=== PATIENT | male | born 1940 | race Hispanic/Latino ===

== ENCOUNTER 2017-07-26 08:39 | Day surgery (SDC) | payer MEDICARE ==
[2017-07-26 09:35] VITALS: BMI 24.3
[2017-07-26 09:40] VITALS: RESP 18
[2017-07-26] MEDS ORDERED: Rocuronium 10 mg/ml (5 ml) ONE (09:45)
[2017-07-26] MEDS ORDERED: cefTRIAXone (Rocephin) 1 gm Inj ONE (10:28)
[2017-07-26] MEDS ORDERED: Propofol 10 mg/ml Inj (20 ML) ONE (10:53)
[2017-07-26] MEDS ORDERED: Midazolam 2 MG/2 ML VIAL ONE (10:53)
[2017-07-26] MEDS ORDERED: ePHEDrine 50 mg/ml Inj ONE (10:53)
[2017-07-26] MEDS ORDERED: Lidocaine 4% (Laryng-O-Jet) Kit MM ONE (10:54)
[2017-07-26] MEDS ORDERED: Etomidate 20 mg/10ml Inj IV ONE (10:54)
[2017-07-26] MEDS ORDERED: Succinylcholine 200 mg/10 ml Inj IV ONE (10:54)
[2017-07-26] MEDS ORDERED: Lactated Ringer's 1,000 ML IV ONE (11:50)
[2017-07-26] MEDS ORDERED: cefTRIAXone (Rocephin) 1 gm Inj IVPB ONE (11:55)
[2017-07-26] MEDS ORDERED: SODIUM CHLORIDE 3,000 ML IR ONE ×2 (12:30→13:45)
[2017-07-26] MEDS ORDERED: HYDROmorphone 0.5 mg/0.5 ml ISec IVP PRN (12:30)
[2017-07-26 16:21] VITALS: BP 123/84; PULSE 87; TEMP 97.9; O2SAT 98
--- NOTE | 2017-07-26 23:13 | OP ---
PROCEDURE DATE: 07/26/2017 PREOPERATIVE DIAGNOSIS: Gross hematuria with bladder tumor. POSTOPERATIVE DIAGNOSIS: Gross hematuria with bladder tumor. PROCEDURE: Cystoscopy with transurethral resection of bladder tumor. DESCRIPTION OF PROCEDURE: The patient was placed in the operating room table in the dorsal lithotomy position. After being given general anesthesia, the area of the groin was draped and prepped in the sterile manner. Using a #24 resectoscope, I entered into the bladder atraumatically. There was a large bladder tumor noted at the right base of the bladder absolutely close proximity to the right ureteral orifice. At this time, I resected the tumor. It was quite large in size and cauterized the active bleeding along the edges and in the central part. A way of comment, he has mildly enlarged middle lobe of the prostate, otherwise no other findings other than severe trabeculation was noted throughout the bladder. Once the resection was done, then #20 three-way Veliz catheter was inserted. The initial outflow was clear. Estimated blood loss to be less than 20 mL. Patient was taken from the operating room in good condition. Murray Dewey MD
== END 2017-07-26 17:00 | disposition home or self-care (01) ==
LOC: H.OPSURG 08:39
PROVIDERS: ATTEND Urology
DX: R31.0 Gross hematuria (principal); N40.0 Benign prostatic hyperplasia without lower urinary tract symptoms; D49.4 Neoplasm of unspecified behavior of bladder
CPT/HCPCS: 52234; 82948; 88305; J0330; J0696; J2001; J2250; J2704; J3010; J7120

== ENCOUNTER 2017-11-17 09:31 | Inpatient (IN) | payer MEDICARE ==
[2017-11-17 09:36] VITALS: BMI 23.8
[2017-11-17 10:53] LABS: BASO # 0.1 K/uL (0.0-0.2); BASO % 0.5 % (0.0-2.0); EOS # 0.2 K/uL (0.0-0.7); EOS % 1.5 % (0.0-4.0); HEMOGLOBIN 11.7 g/dL (12.0-18.0); LYMPH # 1.2 K/uL (1.0-4.3); LYMPH % 9.8 % (20.0-40.0); MEAN CELL VOLUME 88.9 fl (80.0-94.0); MEAN CORPUSCULAR HEMOGLOBIN 29.5 pg (27.0-31.0); MEAN CORPUSCULAR HGB CONC 33.2 g/dL (33.0-37.0); MEAN PLATELET VOLUME 7.1 fl (7.2-11.7); MONO # 0.9 K/uL (0.0-0.8); MONO % 7.8 % (0.0-10.0); NEUT # 9.6 K/uL (1.8-7.0); NEUT % 80.4 % (50.0-75.0); PLATELET COUNT 361 K/uL (130-400); RBC 3.97 Mil/uL (4.40-5.90); RED CELL DISTRIBUTION WIDTH 14.2 % (11.5-14.5); WHITE BLOOD COUNT 11.9 K/uL (4.8-10.8)
--- NOTE | 2017-11-17 10:56 | ED PDOC ---
HPI: Abdomen Time Seen by Provider: 11/17/17 10:02 Chief Complaint (Nursing): Abdominal Pain Chief Complaint (Provider): Abdominal Pain History Per: Patient History/Exam Limitations: no limitations Onset/Duration Of Symptoms: Days (x 4) Current Symptoms Are (Timing): Still Present Additional Complaint(s): Wili is a 77 y/o male with a history of diabetes who presents to the ED complaining of intermittent lower abdominal pain for the past 4 days with associated left lower back pain. Patient has been taking tylenol for the pain. He denies vomiting, fever, or dysuria, but reports that he does have constipation and has not had a bowel movement for the past 4 days. PMD: [place] Past Medical History Reviewed: Historical Data, Nursing Documentation, Vital Signs Vital Signs: Last Vital Signs Temp 98.4 F 11/18/17 07:29 Pulse 80 11/18/17 07:29 Resp 18 11/18/17 07:29 BP 126/63 11/18/17 07:29 Pulse Ox 97 11/18/17 07:29 - Medical History PMH: Diabetes Denies: Chronic Kidney Disease Other PMH: Bladder CA - Surgical History Surgical History: Hernia Repair - Family History Family History: States: Unknown Family Hx - Home Medications Home Medications: Ambulatory Orders Medication Instructions Recorded metFORMIN [glucOPHAGE] 500 mg PO BID 07/26/17 Furosemide [Lasix] 20 mg PO DAILY 11/17/17 Tamsulosin [Flomax] 0.4 mg PO HS 11/17/17 - Allergies Allergies/Adverse Reactions: Allergies Allergy/AdvReac Type Severity Reaction Status Date / Time aspirin Allergy DIZZINESS Verified 11/18/17 06:50 Review of Systems ROS Statement: Except As Marked, All Systems Reviewed And Found Negative Constitutional: Negative for: Fever Gastrointestinal: Positive for: Abdominal Pain (lower), Constipation. Negative for: Vomiting Genitourinary Male: Negative for: Dysuria Musculoskeletal: Positive for: Back Pain (left lower), Other (lower leg swelling ) Physical Exam - Reviewed Nursing Documentation Reviewed: Yes Vital Signs Reviewed: Yes - Physical Exam Appears: Positive for: Well, Non-toxic, No Acute Distress Skin: Positive for: Normal Color, Warm, Dry. Negative for: Rash Eye Exam: Positive for: Normal appearance Cardiovascular/Chest: Positive for: Regular Rate, Rhythm. Negative for: Murmur Respiratory: Positive for: Normal Breath Sounds. Negative for: Respiratory Distress Gastrointestinal/Abdominal: Positive for: Soft, Distended. Negative for: Tenderness, Hernia Back: Positive for: Normal Inspection. Negative for: L CVA Tenderness, R CVA Tenderness, Vertebral Tenderness Extremity: Positive for: Normal ROM, Swelling (mild pitting edema in both lower legs). Negative for: Tenderness, Deformity, Other (redness, wounds) Neurologic/Psych: Positive for: Alert, Oriented. Negative for: Motor/Sensory Deficits - Laboratory Results Result Diagrams: 11/18/17 04:35 11/18/17 04:35 - ECG O2 Sat by Pulse Oximetry: 96 (RA) Pulse Ox Interpretation: Normal Medical Decision Making Medical Decision Making: Time: 10:22 Initial Impression: Abdominal Pain, Constipation; Differentials include small bowel obstruction, cancer. Other differentials considered but not listed Initial Plan: --CT Abdomen & Pelvis w/ IV Contrast --EKG --CMP --Lipase --CBC Time: 13:54 CT ABDOMEN & PELVIS FINDINGS: LOWER THORAX: COPD. An ulcerated mass is identified the right lower lobe with peripheral spiculation suspicious for neoplasm, measuring 2.4 x 1.9 cm. Small hiatal hernia is identified. LIVER: Unremarkable. No gross lesion or ductal dilatation. GALLBLADDER AND BILE DUCTS: Unremarkable. PANCREAS: Unremarkable. No gross lesion or ductal dilatation. SPLEEN: Unremarkable. ADRENALS: Unremarkable. No mass. KIDNEYS AND URETERS: Mild right and moderate left hydronephrosis appreciate with prominent left perinephric reaction. Urinary bladder is markedly thickened diffusely with cystitis or neoplasm in question. Further, there is gross enlargement of prostate gland which measures 7.1 x 7.1 cm with central calcifications noted. No definite radiodense urolithiasis identified in either ureter and urinary bladder is felt to the likely etiology of hydronephrosis or prostate gland invading the urinary bladder. Vascular calcifications seen at the bilateral renal hilar regions without radiodense urolithiasis affecting either kidney apparently. VASCULATURE: Unremarkable. No aortic aneurysm. BOWEL: Unremarkable. No obstruction. No gross mural thickening. APPENDIX: Unremarkable. Normal appendix. PERITONEUM: Unremarkable. No free fluid. No free air. LYMPH NODES: Mildly prominent retroperitoneal and pelvic side wall lymphadenopathy clinical multiple lymph nodes or aggregates 2.2 x 4.3 cm. BLADDER: See renal section above. REPRODUCTIVE: See renal section above. BONES: No acute fracture. OTHER FINDINGS: None. IMPRESSION: Moderate left and mild to moderate right obstructive uropathy is appreciated likely on the basis of cystitis or neoplasm in the urinary bladder with the urinary bladder wall diffusely thickened. Prostate is grossly enlarged and invasion through the base of the urinary bladder is not excluded. Please see discussion above. Moderate retroperitoneal and pelvic side wall lymphadenopathy. Incidental COPD and right lower lobe pulmonary mass 2.4 cm. Time: 14:00 --Based on CT results, patient will be admitted for acute renal failure, UTI, and obstructed uropathy. He will be admitted to Dr. Clayton and will consult with Dr. Dewey, urologist television engineering teacher. Time: 15:00 --Case reviewed with Zuleima who recommends admitting patient, not doing a Veliz catheter, and ordering nucular scan. --Discussed with Dr. Clayton and will admit to med surg inpatient for renal failure and UTI. Scribe Attestation: Documented by Adebayo Pruett, acting as a scribe for Dr. Sarah Alexander MD. Provider Scribe Attestation: All medical record entries made by the Scribe were at my direction and personally dictated by me. I have reviewed the chart and agree that the record accurately reflects my personal performance of the history, physical exam, medical decision making, and the department course for this patient. I have also personally directed, reviewed, and agree with the discharge instructions and disposition. Disposition - Clinical Impression Clinical Impression: Obstructive uropathy, UTI (urinary tract infection), Bladder cancer - Patient ED Disposition Is Patient to be Admitted: Yes Discussed With DrAkua: Ha Clayton Doctor Will See Patient In The: Hospital Counseled Patient/Family Regarding: Studies Performed, Diagnosis - Disposition Disposition Time: 14:00 Condition: FAIR - Pt Status Changed To: Hospital Disposition Of: Inpatient - Admit Certification Admit to Inpatient:: After my assessment, the patient will require hospitalization for at least two midnights. This is because of the severity of symptoms shown, intensity of services needed, and/or the medical risk in this patient being treated as an outpatient. - POA Present On Arrival: None
[2017-11-17 11:10] LABS: CALCIUM 9.5 mg/dL (8.4-10.2)
--- NOTE | 2017-11-17 11:58 | CARD ---
APPROVED REPORT EKG Measurement Heart [id number] <Conclusion> Normal sinus rhythm Normal ECG
[2017-11-17 12:10] LABS: ANISOCYTOSIS SLIGHT; EOSINOPHIL 2 % (0-7); LYMPHOCYTE 14 % (20-50); MONOCYTE 7 % (0-10); NEUTROPHIL 77 % (42-75); PLATELET ESTIMATE NORMAL (NORMAL); TOTAL CELLS COUNTED 100
[2017-11-17 12:11] LABS: TOXIC GRANULATION PRESENT
[2017-11-17 12:22] LABS: HYPOCHROMIC SLIGHT
[2017-11-17 13:22] LABS: SQUAMOUS EPITHIAL < 1 /hpf (0-5); URINE BACTERIA MOD (<OCC); URINE BILIRUBIN NEGATIVE (NEGATIVE); URINE BLOOD SMALL (NEGATIVE); URINE CLARITY CLOUDY (Clear); URINE COLOR YELLOW (YELLOW); URINE GLUCOSE (UA) NEG (Normal); URINE LEUKOCYTE ESTERASE LARGE Leu/uL (Negative); URINE PROTEIN 100 mg/dL (NEGATIVE); URINE UROBILINOGEN 0.2-1.0 mg/dL (0.2-1.0); WBC CLUMPS FEW /hpf
--- NOTE | 2017-11-17 13:54 | CT ---
PROCEDURE: CT Abdomen and Pelvis without intravenous contrast HISTORY: abdominal pain constipation COMPARISON: None. TECHNIQUE: Helical CT of the abdomen and pelvis was performed without oral or intravenous contrast as per referring physician request.. Contrast Dose: None Radiation dose: Total exam DLP = 765.42 mGy-cm. This CT exam was performed using one or more of the following dose reduction techniques: Automated exposure control, adjustment of the mA and/or kV according to patient size, and/or use of iterative reconstruction technique. FINDINGS: LOWER THORAX: COPD. An ulcerated mass is identified the right lower lobe with peripheral spiculation suspicious for neoplasm, measuring 2.4 x 1.9 cm. Small hiatal hernia is identified. LIVER: Unremarkable. No gross lesion or ductal dilatation. GALLBLADDER AND BILE DUCTS: Unremarkable. PANCREAS: Unremarkable. No gross lesion or ductal dilatation. SPLEEN: Unremarkable. ADRENALS: Unremarkable. No mass. KIDNEYS AND URETERS: Mild right and moderate left hydronephrosis appreciate with prominent left perinephric reaction. Urinary bladder is markedly thickened diffusely with cystitis or neoplasm in question. Further, there is gross enlargement of prostate gland which measures 7.1 x 7.1 cm with central calcifications noted. No definite radiodense urolithiasis identified in either ureter and urinary bladder is felt to the likely etiology of hydronephrosis or prostate gland invading the urinary bladder. Vascular calcifications seen at the bilateral renal hilar regions without radiodense urolithiasis affecting either kidney apparently. VASCULATURE: Unremarkable. No aortic aneurysm. BOWEL: Unremarkable. No obstruction. No gross mural thickening. APPENDIX: Unremarkable. Normal appendix. PERITONEUM: Unremarkable. No free fluid. No free air. LYMPH NODES: Mildly prominent retroperitoneal and pelvic side wall lymphadenopathy clinical multiple lymph nodes or aggregates 2.2 x 4.3 cm. BLADDER: See renal section above. REPRODUCTIVE: See renal section above. BONES: No acute fracture. OTHER FINDINGS: None. IMPRESSION: Moderate left and mild to moderate right obstructive uropathy is appreciated likely on the basis of cystitis or neoplasm in the urinary bladder with the urinary bladder wall diffusely thickened. Prostate is grossly enlarged and invasion through the base of the urinary bladder is not excluded. Please see discussion above. Moderate retroperitoneal and pelvic side wall lymphadenopathy. Incidental COPD and right lower lobe pulmonary mass 2.4 cm.
[2017-11-17] MEDS ORDERED: Sodium Chloride 0.9% 1,000 ML IV STA ×2 (14:07→14:20)
[2017-11-17] MEDS ORDERED: cefTRIAXone (Rocephin) 1 gm Inj ONE (14:12)
[2017-11-17] MEDS ORDERED: Sodium Chloride 0.45% 1,000 ML IV SCH (17:15)
[2017-11-18] MEDS: Oxycodone/Acetaminophen 5/325 mg Tab PO PRN ×4 (02:23→21:20)
[2017-11-18 05:32] LABS: HEMOGLOBIN 10.1 g/dL (12.0-18.0); MEAN CELL VOLUME 89.1 fl (80.0-94.0); MEAN CORPUSCULAR HEMOGLOBIN 29.4 pg (27.0-31.0); RBC 3.43 Mil/uL (4.40-5.90); RED CELL DISTRIBUTION WIDTH 14.2 % (11.5-14.5); WHITE BLOOD COUNT 12.9 K/uL (4.8-10.8)
[2017-11-18 05:59] LABS: ALB/GLOB RATIO 0.9 (1.0-2.1); ALBUMIN 3.2 g/dL (3.5-5.0); CALCIUM 8.4 mg/dL (8.4-10.2)
--- NOTE | 2017-11-18 14:13 | NM ---
PROCEDURE: Renal scan, flow study in split renal function HISTORY: obstructive uropathy, ARF COMPARISON: November 17, 2017. CT abdomen and pelvis TECHNIQUE: 11.03 mCi technetium 99 M Mag 3 FINDINGS: Right Kidney: Flow component: Diminished perfusion to the right kidney. Time to peak: 3.16 minutes Peak to T1/2 Peak: Not applicable Left Kidney: Flow component: Normal perfusion left kidney Time to peak: 30.16 minutes Peak to T1/2 Peak: Not applicable Obstruction profile apparent left kidney. Split Renal Function: Right kidney 18.8 % Left kidney 81.2 % IMPRESSION: Poorly perfused, poorly functioning right kidney. Normal perfusion to the left kidney, obstruction profile apparent with failure to clear radionuclide from the left kidney.
--- NOTE | 2017-11-18 14:34 | HP ---
HISTORY OF PRESENT ILLNESS: Mr. Genao is a 77-year-old male who was admitted to the medical floor after he went through the Emergency Room complaining of intermittent lower abdominal pain for the past 4 days, associated with lower back pain. He also indicates that he has severe constipation for the past several days and has had problems passing urine. PAST MEDICAL HISTORY: Remarkable for diabetes mellitus and chronic kidney disease. He sees Dr. Dewey for urologic problems. FAMILY HISTORY: Non-revealing. SOCIAL HISTORY: He does not smoke or drink. REVIEW OF SYSTEMS: Essentially unremarkable. PHYSICAL EXAMINATION: GENERAL: The patient is alert and oriented, appears to be in moderate distress because of lower back pain and problems related to difficulty with voiding and passing stool. VITAL SIGNS: Reviewed and stable. HEENT: Mouth shows fair hygiene. LUNGS: Clear. HEART: Regular. No murmurs or gallop. ABDOMEN: Soft and nontender. No organomegaly appreciated. EXTREMITIES: Shows no edema or cyanosis. CENTRAL NERVOUS SYSTEM: Grossly intact. LABORATORY DATA: CT scan of abdomen and pelvis, moderate right obstructive uropathy is noted. Prostate is grossly enlarged. WBC 12.9, hemoglobin 10.1, and platelet count 310,000. Sodium 141, potassium 4.9, BUN 47, creatinine 5.3, and serum glucose 111. IMPRESSION: Obstructive uropathy with prostate enlargement, acute cystitis, and constipation, probably secondary to obstructive uropathy and colon. PLAN: Urology evaluation, intravenous antibiotic therapy. Renal scan already ordered given that the patient has an elevated BUN and creatinine, which probably obstructive uropathy. Give IV hydration and continued therapy as ordered. We will continue to follow. Further therapy as per Urology. Ha Clayton MD
[2017-11-19] MEDS: Oxycodone/Acetaminophen 5/325 mg Tab PO PRN (01:20)
[2017-11-19 07:36] LABS: CALCIUM 8.8 mg/dL (8.4-10.2)
[2017-11-19 07:52] LABS: INR 1.3 (0.9-1.2); PROTHROMBIN TIME 14.3 Seconds (9.8-13.1)
[2017-11-19] MEDS ORDERED: Dextrose 5%/0.45% NS 1,000 ML IV SCH (11:00)
[2017-11-19] MEDS: Dextrose 5%/0.45% NS 1,000 ML IV SCH (11:45)
[2017-11-19] MEDS ORDERED: Lidocaine 1% Inj (20ml) ONE (13:17)
[2017-11-19] MEDS ORDERED: Etomidate 20 mg/10ml Inj IV ONE (13:39)
[2017-11-19] MEDS ORDERED: Midazolam 2 MG/2 ML VIAL ONE ×2 (13:39→14:05)
[2017-11-19] MEDS ORDERED: Iodixanol 320 MG/ML 100 ML BOTTLE IV ONE (13:42)
--- NOTE | 2017-11-19 13:49 | CP.PCM.PN ---
Subjective - Date & Time of Evaluation Date of Evaluation: 11/19/17 Time of Evaluation: 13:49 - Subjective Subjective: STILL IN PAIN FOR NEPHROSTOMY TUBE PLACEMENT UNDER IR TODAY MEDICALLY CLEARED FOR SURGERY CONTINUE PRESENT ANTIBIOTIC RX Objective - Vital Signs/Intake and Output Vital Signs (last 24 hours): Temp Pulse Resp BP Pulse Ox 98.9 F 96 H 18 137/66 97 11/19/17 07:33 11/19/17 07:33 11/19/17 07:33 11/19/17 07:33 11/19/17 07:33 - Medications Medications: Current Medications Acetaminophen (Tylenol 325mg Tab) 650 mg PO Q4 PRN PRN Reason: Fever >100.4 F Last Admin: 11/18/17 00:42 Dose: 650 mg Glipizide (Glucotrol) 10 mg PO BID [facility] Last Admin: 11/19/17 08:54 Dose: Not Given Ceftriaxone Sodium 1 gm/ (Sodium Chloride) 100 mls @ 100 mls/hr IVPB DAILY [facility] PRN Reason: Protocol Last Admin: 11/19/17 08:45 Dose: 100 mls/hr Dextrose/Sodium Chloride (Dextrose 5%/0.45% Ns 1000 Ml) 1,000 mls @ 60 mls/hr IV .[id number] [facility] Stop: 11/20/17 10:58 Lactulose (Enulose) 20 gm PO ONCE [facility] Last Admin: 11/18/17 17:48 Dose: 20 gm Oxycodone/Acetaminophen (Percocet 5/325 Mg Tab) 1 tab PO Q4 PRN PRN Reason: Pain, severe (8-10) Stop: 11/20/17 17:04 Last Admin: 11/19/17 01:20 Dose: 1 tab Tamsulosin HCl (Flomax) 0.4 mg PO HS MIKE Last Admin: 11/18/17 21:17 Dose: 0.4 mg - Labs Labs: 11/18/17 04:35 11/19/17 06:40 PT 14.3 Seconds (9.8-13.1) H 11/19/17 06:40 INR 1.3 (0.9-1.2) H 11/19/17 06:40
[2017-11-19] MEDS ORDERED: Propofol 10 mg/ml Inj (20 ML) ONE (14:08)
[2017-11-19] MEDS ORDERED: Labetalol 5mg/ml (4ml) ONE (14:21)
--- NOTE | 2017-11-19 14:39 | PCM.SURG1 ---
Surgeon's Initial Post Op Note - Surgeon's Notes Surgeon: Alexsander Flaherty MD [employer] Supervisor: None Type of Anesthesia: MAC Pre-Operative Diagnosis: bilateral obstructive uropathy Operative Findings: moderate bilateral hydronephrosis Post-Operative Diagnosis: same Operation Performed: Bilateral percutaneous nephrostomy insertion Specimen/Specimens Removed: 5 cc cloudy urine from each side Estimated Blood Loss: EBL {In ML}: 5 Date of Surgery/Procedure: 11/19/17 Time of Surgery/Procedure: 14:20
[2017-11-19] MEDS ORDERED: Sodium Chloride 0.9% 250 ML IV ONE (14:50)
--- NOTE | 2017-11-19 16:03 | CT ---
PROCEDURE: BILATERAL NEPHROSTOMY TUBE INSERTION CLINICAL HISTORY: 77-year-old male with bladder carcinoma and obstructive uropathy causing bilateral hydronephrosis is referred to Interventional Radiology for nephrostomy tube insertion. COMPARISON: CT scan of the abdomen and pelvis dated 11/17/2017 PROCEDURE: 1. Placement of percutaneous nephrostomy x2. PRE-PROCEDURE FINDINGS: 1. Moderate bilateral hydronephrosis. POST-PROCEDURE FINDINGS: 1. Successful placement of bilateral percutaneous nephrostomy tubes. INTERVENTIONAL RADIOLOGIST: Alexsander Flaherty M.D. (the attending was present for the entire procedure) ANESTHESIA: Provided by the attending anesthesiologist. Sedation was supervised by the anesthesiology attending with the presence of independent radiology nursing monitoring. Physiological data monitoring was performed throughout the entire procedure. The patient's blood pressure, EKG and pulse oximetry were recorded. The patient tolerated the procedure and sedation without untoward reactions. The intra-procedural sedation time was 30 minutes. MEDICATIONS: Lidocaine 1% for local subcutaneous analgesia. CONTRAST: 10 mL contrast. COMPLICATIONS: None. RADIATION DOSE: Fluoroscopy Time: 114.2 seconds Cumulative Dose: 33.0 mGy PROCEDURE DESCRIPTION AND FINDINGS: The risks, benefits, alternatives and possible complications of the procedure were fully discussed; all questions were answered and informed consent was obtained. The patient was brought into the interventional suite and a pre-procedure 'time-out' was performed. The patient was placed on the fluoroscopy table in the prone position. The bilateral flanks were prepped and draped in the usual sterile fashion. Maximum sterile barrier precautions were maintained throughout the entire procedure. Preliminary ultrasound images of the bilateral flanks demonstrated moderate hydronephrosis. Following subcutaneous infiltration of lidocaine 1% for local analgesia, under ultrasound guidance, a 21-gauge needle was inserted into a lower pole calyx of the left kidney. Following urine return, a sample was obtained and a 0.035 guidewire was advanced via the needle into the renal pelvis. The needle was exchanged over the guidewire for a new 8 Slovak nephrostomy tube. The pigtail was formed in the renal pelvis. Gentle contrast injection confirmed optimal position within the renal pelvis. The catheter was secured to the skin with a 2-0 non-absorbable suture and left to gravity bag drainage externally. A sterile dressing was applied. Following subcutaneous infiltration of lidocaine 1% for local analgesia, under ultrasound guidance, a 21-gauge needle was inserted into a lower pole calyx of the right kidney. Following urine return, a sample was obtained and a 0.035 guidewire was advanced via the needle into the renal pelvis. The needle was exchanged over the guidewire for a new 8 Slovak nephrostomy tube. The pigtail was formed in the renal pelvis. Gentle contrast injection confirmed optimal position within the renal pelvis. The catheter was secured to the skin with a 2-0 non-absorbable suture and left to gravity bag drainage externally. A sterile dressing was applied. The patient tolerated the procedure well without immediate post-procedure complications and was transferred back to the floor in stable condition. IMPRESSION: SUCCESSFUL PLACEMENT OF BILATERAL 8 [place] PERCUTANEOUS NEPHROSTOMY TUBES.
[2017-11-20] MEDS: Dextrose 5%/0.45% NS 1,000 ML IV SCH ×2 (04:18→09:44)
[2017-11-20] MEDS ORDERED: Magnesium Citrate Oral SOL (300 ml) PO ONE (09:22)
--- NOTE | 2017-11-20 09:29 | CP.PCM.PN ---
Subjective - Date & Time of Evaluation Date of Evaluation: 11/20/17 Time of Evaluation: 09:30 - Subjective Subjective: STILL C/O CONSTIPATION SUPRAPUBIC DISCOMFORT IMPROVED R NEPHROSTOMY TUBE FUNCTIONING BUT HAS BLOODY URINE L NEPHROSTOMY TUBE HAS CLEAR URINE Objective - Vital Signs/Intake and Output Vital Signs (last 24 hours): Temp Pulse Resp BP Pulse Ox 97.9 F 92 H 20 136/65 95 11/20/17 07:49 11/20/17 07:49 11/20/17 07:49 11/20/17 07:49 11/20/17 07:49 Intake and Output: 11/20/17 11/20/17 06:59 18:59 Intake Total 1200 Output Total 2020 Balance -820 - Medications Medications: Current Medications Acetaminophen (Tylenol 325mg Tab) 650 mg PO Q4 PRN PRN Reason: Fever >100.4 F Last Admin: 11/18/17 00:42 Dose: 650 mg Glipizide (Glucotrol) 10 mg PO BID [facility] Last Admin: 11/20/17 08:46 Dose: 10 mg Ceftriaxone Sodium 1 gm/ (Sodium Chloride) 100 mls @ 100 mls/hr IVPB DAILY [facility] PRN Reason: Protocol Last Admin: 11/20/17 08:46 Dose: 100 mls/hr Dextrose/Sodium Chloride (Dextrose 5%/0.45% Ns 1000 Ml) 1,000 mls @ 42 mls/hr IV .[id number] [facility] Stop: 11/21/17 09:24 Lactulose (Enulose) 20 gm PO ONCE [facility] Last Admin: 11/18/17 17:48 Dose: 20 gm Magnesium Citrate (Citrate Of Mag) 300 ml PO ONCE ONE Stop: 11/20/17 09:23 Oxycodone/Acetaminophen (Percocet 5/325 Mg Tab) 1 tab PO Q4 PRN PRN Reason: Pain, severe (8-10) Stop: 11/20/17 17:04 Last Admin: 11/19/17 01:20 Dose: 1 tab Tamsulosin HCl (Flomax) 0.4 mg PO [facility] Last Admin: 11/19/17 21:33 Dose: 0.4 mg - Labs Labs: 11/18/17 04:35 11/19/17 06:40 PT 14.3 Seconds (9.8-13.1) H 11/19/17 06:40 INR 1.3 (0.9-1.2) H 11/19/17 06:40 - Constitutional Appears: No Acute Distress - Head Exam Head Exam: ATRAUMATIC, NORMAL INSPECTION, NORMOCEPHALIC - Eye Exam Eye Exam: EOMI, Normal appearance, PERRL Pupil Exam: NORMAL ACCOMODATION, PERRL - ENT Exam ENT Exam: Mucous Membranes Moist, Normal Exam - Neck Exam Neck Exam: Full ROM, Normal Inspection. absent: Lymphadenopathy - Respiratory Exam Respiratory Exam: Clear to Ausculation Bilateral, NORMAL BREATHING PATTERN - Cardiovascular Exam Cardiovascular Exam: REGULAR RHYTHM, +S1, +S2. absent: Murmur - GI/Abdominal Exam GI & Abdominal Exam: Soft, Normal Bowel Sounds. absent: Tenderness - Rectal Exam Rectal Exam: NORMAL INSPECTION - Extremities Exam Extremities Exam: Full ROM, Normal Capillary Refill, Normal Inspection. absent : Joint Swelling, Pedal Edema - Back Exam Back Exam: NORMAL INSPECTION - Neurological Exam Neurological Exam: Alert, Awake, CN II-XII Intact, Normal Gait, Oriented x3 - Psychiatric Exam Psychiatric exam: Normal Affect, Normal Mood - Skin Skin Exam: Dry, Intact, Normal Color, Warm Assessment and Plan - Assessment and Plan (Free Text) Assessment: OBSTRUCTIVE UROPATHY RENAL FAILURE DUE TO OBSTRUCTIVE UROPATHY HX OF BLADDER CANCER CONSTIPATION S/P BILATERAL NEPHROSTOMIES Plan: CONTINUE RX ORDERED [place] FOR CONSTIPATION MAY NEED FLEETS [facility] REPEAT LABS MAY NEED NEPHROLOGY EVAL
[2017-11-20] MEDS: Oxycodone/Acetaminophen 5/325 mg Tab PO PRN (23:03)
[2017-11-21 08:44] LABS: CALCIUM 8.9 mg/dL (8.4-10.2)
[2017-11-21] MEDS: Dextrose 5%/0.45% NS 1,000 ML IV SCH (09:28)
--- NOTE | 2017-11-21 12:01 | CP.PCM.PN ---
Subjective - Date & Time of Evaluation Date of Evaluation: 11/21/17 Time of Evaluation: 12:02 - Subjective Subjective: CLINICALLY IMPROVING PAIN LESS HEMATURIA R RENAL CATH PERSISTS L CATH CLEAR URINE Objective - Vital Signs/Intake and Output Vital Signs (last 24 hours): Temp Pulse Resp BP Pulse Ox 98.3 F 86 18 137/69 97 11/21/17 07:41 11/21/17 07:41 11/21/17 07:41 11/21/17 07:41 11/21/17 07:41 Intake and Output: 11/21/17 11/21/17 06:59 18:59 Intake Total 604 Output Total 1400 Balance -796 - Medications Medications: Current Medications Acetaminophen (Tylenol 325mg Tab) 650 mg PO Q4 PRN PRN Reason: Fever >100.4 F Last Admin: 11/18/17 00:42 Dose: 650 mg Glipizide (Glucotrol) 10 mg PO BID [facility] Last Admin: 11/21/17 09:29 Dose: Not Given Ceftriaxone Sodium 1 gm/ (Sodium Chloride) 100 mls @ 100 mls/hr IVPB DAILY [facility] PRN Reason: Protocol Last Admin: 11/21/17 09:27 Dose: 100 mls/hr Lactulose (Enulose) 20 gm PO ONCE [facility] Last Admin: 11/18/17 17:48 Dose: 20 gm Oxycodone/Acetaminophen (Percocet 5/325 Mg Tab) 1 tab PO Q6 PRN PRN Reason: Pain, severe (8-10) Stop: 11/23/17 22:42 Last Admin: 11/20/17 23:03 Dose: 1 tab Tamsulosin HCl (Flomax) 0.4 mg PO HS [facility] Last Admin: 11/20/17 21:53 Dose: 0.4 mg - Labs Labs: 11/18/17 04:35 11/21/17 06:30 PT 14.3 Seconds (9.8-13.1) H 11/19/17 06:40 INR 1.3 (0.9-1.2) H 11/19/17 06:40 - Constitutional Appears: No Acute Distress - Head Exam Head Exam: ATRAUMATIC, NORMAL INSPECTION, NORMOCEPHALIC - Eye Exam Eye Exam: EOMI, Normal appearance, PERRL Pupil Exam: NORMAL ACCOMODATION, PERRL - ENT Exam ENT Exam: Mucous Membranes Moist, Normal Exam - Neck Exam Neck Exam: Full ROM, Normal Inspection. absent: Lymphadenopathy - Respiratory Exam Respiratory Exam: Clear to Ausculation Bilateral, NORMAL BREATHING PATTERN - Cardiovascular Exam Cardiovascular Exam: REGULAR RHYTHM, +S1, +S2. absent: Murmur - GI/Abdominal Exam GI & Abdominal Exam: Soft, Normal Bowel Sounds. absent: Tenderness - Rectal Exam Rectal Exam: NORMAL INSPECTION - Extremities Exam Extremities Exam: Full ROM, Normal Capillary Refill, Normal Inspection. absent : Joint Swelling, Pedal Edema - Back Exam Back Exam: NORMAL INSPECTION - Neurological Exam Neurological Exam: Alert, Awake, CN II-XII Intact, Normal Gait, Oriented x3 - Psychiatric Exam Psychiatric exam: Normal Affect, Normal Mood - Skin Skin Exam: Dry, Intact, Normal Color, Warm Assessment and Plan - Assessment and Plan (Free Text) Assessment: OBSTRUCTIVE UROPATHY-IMPROVING HX OF BLADDER CANCER Plan: CONTINUE CURRENT RX PER UROLOGIST
[2017-11-21] MEDS: Oxycodone/Acetaminophen 5/325 mg Tab PO PRN ×2 (18:09→23:37)
[2017-11-22] MEDS: Oxycodone/Acetaminophen 5/325 mg Tab PO PRN ×2 (06:24→17:52)
[2017-11-22 06:33] LABS: BASO # 0.1 K/uL (0.0-0.2); BASO % 1.2 % (0.0-2.0); EOS # 0.5 K/uL (0.0-0.7); EOS % 7.1 % (0.0-4.0); HEMOGLOBIN 11.5 g/dL (12.0-18.0); LYMPH # 1.2 K/uL (1.0-4.3); LYMPH % 15.8 % (20.0-40.0); MEAN CELL VOLUME 89.4 fl (80.0-94.0); MEAN CORPUSCULAR HEMOGLOBIN 29.9 pg (27.0-31.0); MEAN CORPUSCULAR HGB CONC 33.5 g/dL (33.0-37.0); MEAN PLATELET VOLUME 6.6 fl (7.2-11.7); MONO # 0.6 K/uL (0.0-0.8); MONO % 7.9 % (0.0-10.0); NEUT # 5.1 K/uL (1.8-7.0); RBC 3.86 Mil/uL (4.40-5.90); WHITE BLOOD COUNT 7.5 K/uL (4.8-10.8)
[2017-11-22 06:48] LABS: CALCIUM 9.4 mg/dL (8.4-10.2)
--- NOTE | 2017-11-22 08:46 | CP.PCM.PN ---
Subjective - Date & Time of Evaluation Date of Evaluation: 11/22/17 Time of Evaluation: 08:47 - Subjective Subjective: still constipated good urine flow from nephrostomy caths r sided catheter--nblood tinged but improving Objective - Vital Signs/Intake and Output Vital Signs (last 24 hours): Temp Pulse Resp BP Pulse Ox 98.2 F 79 20 136/74 96 11/22/17 07:48 11/22/17 07:48 11/22/17 07:48 11/22/17 07:48 11/22/17 07:48 Intake and Output: 11/22/17 11/22/17 06:59 18:59 Intake Total 400 Output Total 790 Balance -390 - Medications Medications: Current Medications Acetaminophen (Tylenol 325mg Tab) 650 mg PO Q4 PRN PRN Reason: Fever >100.4 F Last Admin: 11/18/17 00:42 Dose: 650 mg Glipizide (Glucotrol) 10 mg PO BID [facility] Last Admin: 11/21/17 18:23 Dose: 10 mg Ceftriaxone Sodium 1 gm/ (Sodium Chloride) 100 mls @ 100 mls/hr IVPB DAILY [facility] PRN Reason: Protocol Last Admin: 11/21/17 09:27 Dose: 100 mls/hr Lactulose (Enulose) 20 gm PO ONCE [facility] Last Admin: 11/18/17 17:48 Dose: 20 gm Oxycodone/Acetaminophen (Percocet 5/325 Mg Tab) 1 tab PO Q6 PRN PRN Reason: Pain, severe (8-10) Stop: 11/23/17 22:42 Last Admin: 11/22/17 06:24 Dose: 1 tab Tamsulosin HCl (Flomax) 0.4 mg PO HS [facility] Last Admin: 11/21/17 21:13 Dose: 0.4 mg - Labs Labs: 11/22/17 06:00 11/22/17 06:00 PT 14.3 Seconds (9.8-13.1) H 11/19/17 06:40 INR 1.3 (0.9-1.2) H 11/19/17 06:40 - Constitutional Appears: No Acute Distress - Head Exam Head Exam: ATRAUMATIC, NORMAL INSPECTION, NORMOCEPHALIC - Eye Exam Eye Exam: EOMI, Normal appearance, PERRL Pupil Exam: NORMAL ACCOMODATION, PERRL - ENT Exam ENT Exam: Mucous Membranes Moist, Normal Exam - Neck Exam Neck Exam: Full ROM, Normal Inspection. absent: Lymphadenopathy - Respiratory Exam Respiratory Exam: Clear to Ausculation Bilateral, NORMAL BREATHING PATTERN - Cardiovascular Exam Cardiovascular Exam: REGULAR RHYTHM, +S1, +S2. absent: Murmur - GI/Abdominal Exam GI & Abdominal Exam: Soft, Normal Bowel Sounds. absent: Tenderness - Rectal Exam Rectal Exam: NORMAL INSPECTION - Exam Speculum exam: NORMAL SPECULUM EXAM - Extremities Exam Extremities Exam: Full ROM, Normal Capillary Refill, Normal Inspection. absent : Joint Swelling, Pedal Edema - Back Exam Back Exam: NORMAL INSPECTION - Neurological Exam Neurological Exam: Alert, Awake, CN II-XII Intact, Normal Gait, Oriented x3 - Psychiatric Exam Psychiatric exam: Normal Affect, Normal Mood - Skin Skin Exam: Dry, Intact, Normal Color, Warm Assessment and Plan - Assessment and Plan (Free Text) Assessment: obstructive uropathy improving acute kidney failure-improved hx of bladder cancer Plan: continue rx as per urologist marques for constipation
--- NOTE | 2017-11-22 09:29 | CP.PCM.PN ---
Subjective - Date & Time of Evaluation Date of Evaluation: 11/22/17 Time of Evaluation: 09:24 - Subjective Subjective: UROLOGY tphas improved alot with bilateral percutaneous tubes. At this time it is advisable that . he stablizes medically and in about two weeks perforrn cysto to assess bladder statusFrom urology point of view he can be discharged home today Objective - Vital Signs/Intake and Output Vital Signs (last 24 hours): Temp Pulse Resp BP Pulse Ox 98.2 F 79 20 136/74 96 11/22/17 07:48 11/22/17 07:48 11/22/17 07:48 11/22/17 07:48 11/22/17 07:48 Intake and Output: 11/22/17 11/22/17 06:59 18:59 Intake Total 400 Output Total 790 Balance -390 - Medications Medications: Current Medications Acetaminophen (Tylenol 325mg Tab) 650 mg PO Q4 PRN PRN Reason: Fever >100.4 F Last Admin: 11/18/17 00:42 Dose: 650 mg Glipizide (Glucotrol) 10 mg PO BID [facility] Last Admin: 11/22/17 08:52 Dose: 10 mg Ceftriaxone Sodium 1 gm/ (Sodium Chloride) 100 mls @ 100 mls/hr IVPB DAILY [facility] PRN Reason: Protocol Last Admin: 11/22/17 08:51 Dose: 100 mls/hr Lactulose (Enulose) 20 gm PO ONCE [facility] Last Admin: 11/18/17 17:48 Dose: 20 gm Magnesium Citrate (Citrate Of Mag) 300 ml PO ONCE ONE Stop: 11/22/17 09:31 Oxycodone/Acetaminophen (Percocet 5/325 Mg Tab) 1 tab PO Q6 PRN PRN Reason: Pain, severe (8-10) Stop: 11/23/17 22:42 Last Admin: 11/22/17 06:24 Dose: 1 tab Tamsulosin HCl (Flomax) 0.4 mg PO HS [facility] Last Admin: 11/21/17 21:13 Dose: 0.4 mg - Labs Labs: 11/22/17 06:00 11/22/17 06:00 PT 14.3 Seconds (9.8-13.1) H 11/19/17 06:40 INR 1.3 (0.9-1.2) H 11/19/17 06:40
[2017-11-22] MEDS ORDERED: Magnesium Citrate Oral SOL (300 ml) PO ONE (09:30)
--- NOTE | 2017-11-22 12:17 | CP.PCM.PCO ---
Assessment & Plan - Assessment and Plan (Free Text) Assessment: pt. cleared for discharge to Home today by and pt. to f/u with next Wednesday for follow up cont. to monitor nephrostomy- home with vns spoke with son Wili who will be here this afternoon to take his dad home Above plan of care discussed with son patient homebound 2nd to Nephrostomy tube-needs f/u with vnx
[2017-11-22 23:52] VITALS: RESP 20
[2017-11-23] MEDS: Oxycodone/Acetaminophen 5/325 mg Tab PO PRN ×2 (00:56→06:34)
--- NOTE | 2017-11-23 08:54 | CP.PCM.PN ---
Subjective - Date & Time of Evaluation Date of Evaluation: 11/23/17 Time of Evaluation: 08:58 - Subjective Subjective: discharge was cancelled yesterday because pt c/o feeling very weak and unable to go home he also c/o suprapubic pain and bloody urine Objective - Vital Signs/Intake and Output Vital Signs (last 24 hours): Temp Pulse Resp BP Pulse Ox 98.4 F 80 20 143/66 95 11/23/17 08:05 11/23/17 08:05 11/23/17 08:05 11/23/17 08:05 11/23/17 08:05 Intake and Output: 11/23/17 11/23/17 06:59 18:59 Output Total 475 Balance -475 - Medications Medications: Current Medications Acetaminophen (Tylenol 325mg Tab) 650 mg PO Q4 PRN PRN Reason: Fever >100.4 F Last Admin: 11/18/17 00:42 Dose: 650 mg Glipizide (Glucotrol) 10 mg PO BID [facility] Last Admin: 11/22/17 17:52 Dose: 10 mg Ceftriaxone Sodium 1 gm/ (Sodium Chloride) 100 mls @ 100 mls/hr IVPB DAILY [facility] PRN Reason: Protocol Last Admin: 11/23/17 08:45 Dose: 100 mls/hr Lactulose (Enulose) 20 gm PO ONCE [facility] Last Admin: 11/18/17 17:48 Dose: 20 gm Oxycodone/Acetaminophen (Percocet 5/325 Mg Tab) 1 tab PO Q6 PRN PRN Reason: Pain, severe (8-10) Stop: 11/23/17 22:42 Last Admin: 11/23/17 06:34 Dose: 1 tab Tamsulosin HCl (Flomax) 0.4 mg PO HS [facility] Last Admin: 11/22/17 21:50 Dose: 0.4 mg - Labs Labs: 11/22/17 06:00 11/22/17 06:00 PT 14.3 Seconds (9.8-13.1) H 11/19/17 06:40 INR 1.3 (0.9-1.2) H 11/19/17 06:40 - Constitutional Appears: Chronically Ill - Head Exam Head Exam: ATRAUMATIC, NORMAL INSPECTION, NORMOCEPHALIC - Eye Exam Eye Exam: EOMI, Normal appearance, PERRL Pupil Exam: NORMAL ACCOMODATION, PERRL - ENT Exam ENT Exam: Mucous Membranes Moist, Normal Exam - Neck Exam Neck Exam: Full ROM, Normal Inspection. absent: Lymphadenopathy - Respiratory Exam Respiratory Exam: Clear to Ausculation Bilateral, NORMAL BREATHING PATTERN - Cardiovascular Exam Cardiovascular Exam: REGULAR RHYTHM, +S1, +S2. absent: Murmur - GI/Abdominal Exam GI & Abdominal Exam: Soft, Tenderness, Normal Bowel Sounds - Rectal Exam Rectal Exam: NORMAL INSPECTION - Extremities Exam Extremities Exam: Full ROM, Normal Capillary Refill, Normal Inspection. absent : Joint Swelling, Pedal Edema - Back Exam Back Exam: NORMAL INSPECTION - Neurological Exam Neurological Exam: Alert, Awake, CN II-XII Intact, Normal Gait, Oriented x3 - Psychiatric Exam Psychiatric exam: Normal Affect, Normal Mood - Skin Skin Exam: Dry, Intact, Normal Color, Warm - Additional Findings Additional findings: bilateral nephrostomy tubes in place--r side still draining blood tinged urine/ l side-urine clear Assessment and Plan - Assessment and Plan (Free Text) Assessment: obstructive uropathy hx of bladder cancer hematuria ?prostate cancer--elevated psa general malaise Plan: continue analgesics and iv antibiotics refer for transitional care
[2017-11-23 15:41] VITALS: BP 142/75; PULSE 86; TEMP 98.2; O2SAT 96
--- NOTE | 2017-11-24 09:24 | CP.PCM.DIS ---
Provider - Provider Date of Admission: 11/17/17 14:55 Attending physician: Ha Clayton MD Time Spent in preparation of Discharge (in minutes): 30 Diagnosis - Discharge Diagnosis (1) Bladder cancer Status: Acute (2) Obstructive uropathy Status: Acute (3) UTI (urinary tract infection) Status: Acute (4) Diabetes 1.5, managed as type 2 Status: Acute (5) Anemia Status: Acute Hospital Course - Lab Results Lab Results: Micro Results 11/19/17 14:10 Urine,Kidney Urine Culture - Final No Growth (<1,000 CFU/ML) 11/19/17 16:09 Urine,Kidney Urine Culture - Final No Growth (<1,000 CFU/ML) Most Recent Lab Values WBC 7.5 K/uL (4.8-10.8) 11/22/17 06:00 RBC 3.86 Mil/uL (4.40-5.90) L 11/22/17 06:00 Hgb 11.5 g/dL (12.0-18.0) L 11/22/17 06:00 Hct 34.5 % (35.0-51.0) L 11/22/17 06:00 MCV 89.4 fl (80.0-94.0) 11/22/17 06:00 MCH 29.9 pg (27.0-31.0) 11/22/17 06:00 MCHC 33.5 g/dL (33.0-37.0) 11/22/17 06:00 RDW 14.0 % (11.5-14.5) 11/22/17 06:00 Plt Count 433 K/uL (130-400) H D 11/22/17 06:00 MPV 6.6 fl (7.2-11.7) L 11/22/17 06:00 Neut % (Auto) 68.0 % (50.0-75.0) 11/22/17 06:00 Lymph % (Auto) 15.8 % (20.0-40.0) L 11/22/17 06:00 Hunt % (Auto) 7.9 % (0.0-10.0) 11/22/17 06:00 Eos % (Auto) 7.1 % (0.0-4.0) H 11/22/17 06:00 Baso % (Auto) 1.2 % (0.0-2.0) 11/22/17 06:00 Neut # (Auto) 5.1 K/uL (1.8-7.0) 11/22/17 06:00 Lymph # (Auto) 1.2 K/uL (1.0-4.3) 11/22/17 06:00 Hunt # (Auto) 0.6 K/uL (0.0-0.8) 11/22/17 06:00 Eos # (Auto) 0.5 K/uL (0.0-0.7) 11/22/17 06:00 Baso # (Auto) 0.1 K/uL (0.0-0.2) 11/22/17 06:00 Neutrophils % (Manual) 77 % (42-75) H 11/17/17 10:21 Lymphocytes % (Manual) 14 % (20-50) L 11/17/17 10:21 Monocytes % (Manual) 7 % (0-10) 11/17/17 10:21 Eosinophils % (Manual) 2 % (0-7) 11/17/17 10:21 Toxic Granulation Present 11/17/17 10:21 Platelet Estimate Normal (NORMAL) 11/17/17 10:21 Hypochromasia (manual) Slight 11/17/17 10:21 Anisocytosis (manual) Slight 11/17/17 10:21 PT 14.3 Seconds (9.8-13.1) H 11/19/17 06:40 INR 1.3 (0.9-1.2) H 11/19/17 06:40 Sodium 142 mmol/l (132-148) 11/22/17 06:00 Potassium 4.3 MMOL/L (3.6-5.0) 11/22/17 06:00 Chloride 101 mmol/L (98-107) 11/22/17 06:00 Carbon Dioxide 25 mmol/L (22-30) 11/22/17 06:00 Anion Gap 20 (10-20) 11/22/17 06:00 BUN 24 mg/dl (9-20) H 11/22/17 06:00 Creatinine 1.8 mg/dl (0.8-1.5) H 11/22/17 06:00 Est GFR ( Amer) 44 11/22/17 06:00 Est GFR (Non-Af Amer) 37 11/22/17 06:00 POC Glucose (mg/dL) 63 mg/dL (65-110) L 11/23/17 15:22 Random Glucose 111 mg/dL (75-110) H 11/22/17 06:00 Calcium 9.4 mg/dL (8.4-10.2) 11/22/17 06:00 Total Bilirubin 0.7 mg/dl (0.2-1.3) 11/18/17 04:35 AST 20 U/L (17-59) 11/18/17 04:35 ALT 32 U/L (21-72) 11/18/17 04:35 Alkaline Phosphatase 129 U/L (38-126) H D 11/18/17 04:35 NT-Pro-B Natriuret Pep 620 pg/ml (0-900) 11/17/17 12:43 Total Protein 6.7 G/DL (6.3-8.2) 11/18/17 04:35 Albumin 3.2 g/dL (3.5-5.0) L 11/18/17 04:35 Globulin 3.5 gm/dL (2.2-3.9) 11/18/17 04:35 Albumin/Globulin Ratio 0.9 (1.0-2.1) L 11/18/17 04:35 Lipase 92 U/L (23-300) 11/17/17 10:21 Prostate Specific Ag 362 ng/ML (0.00-4.0) H 11/22/17 06:00 Urine Color Yellow (YELLOW) 11/17/17 12:47 Urine Clarity Cloudy (Clear) 11/17/17 12:47 Urine pH 5.0 (5.0-8.0) 11/17/17 12:47 Ur Specific [place] 1.013 (1.003-1.030) 11/17/17 12:47 Urine Protein 100 mg/dL (NEGATIVE) 11/17/17 12:47 Urine Glucose (UA) Neg mg/dL (Normal) 11/17/17 12:47 Urine Ketones Negative mg/dL (NEGATIVE) 11/17/17 12:47 Urine Blood Small (NEGATIVE) 11/17/17 12:47 Urine Nitrate Negative (NEGATIVE) 11/17/17 12:47 Urine Bilirubin Negative (NEGATIVE) 11/17/17 12:47 Urine Urobilinogen 0.2-1.0 mg/dL (0.2-1.0) 11/17/17 12:47 Ur Leukocyte Esterase Large [place]/uL (Negative) 11/17/17 12:47 Urine WBC Clumps (Auto) Few /hpf (NONE) H 11/17/17 12:47 Urine Microscopic WBC 297 /hpf (0-5) H 11/17/17 12:47 Ur Squamous Epith Cells < 1 /hpf (0-5) 11/17/17 12:47 Urine Bacteria Mod (<OCC) H 11/17/17 12:47 - Hospital Course Hospital Course: NEPHROSTOMY TUBES FUNCTIONING CLINICALLY IMPROVED Discharge Exam - Head Exam Head Exam: ATRAUMATIC, NORMAL INSPECTION, NORMOCEPHALIC - Eye Exam Eye Exam: EOMI, Normal appearance, PERRL Pupil Exam: NORMAL ACCOMODATION, PERRL - GI/Abdominal Exam GI & Abdominal Exam: Normal Bowel Sounds - Rectal Exam Rectal Exam: NORMAL INSPECTION - Exam Additional comments: FUNCTIONING NEPHROSTOMY TUBES - Neurological Exam Neurological exam: Alert, CN II-XII Intact, Normal Gait, Oriented x3, Reflexes Normal - Psychiatric Exam Psychiatric exam: Normal Affect, Normal Mood - Skin Skin Exam: Dry, Intact, Normal Color, Warm Discharge Plan - Discharge Medications Prescriptions: oxyCODONE/Acetaminophen [Percocet 5/325 mg Tab] 1 tab PO Q6 PRN #15 tab PRN Reason: Pain, Severe (8-10) - Follow Up Plan Condition: FAIR Disposition: HOME/ ROUTINE Instructions: How to Care for Your Nephrostomy Tube, Urinary Obstruction (DC), Nephrostomy, Percutaneous (DC) Additional Instructions: pt. cleared for discharge to Home today by and pt. to f/u with next Wednesday for follow up cont. to monitor nephrostomy- home with [facility] [phone] spoke with son Wili who will be here this afternoon to take his dad home Above plan of care discussed with son Referrals: Murray Dewey MD [Medical Doctor] - Travon Mariscal Jr., MD [Family Provider] -
== END 2017-11-23 18:50 | disposition home health service (06) | DRG 726 ==
LOC: H.ER 09:31 → H.ERHOLD 14:55 → H.MEDSURG1 16:15
PROVIDERS: ADMIT Internal Medicine Pulmonary Disease; ATTEND Internal Medicine Pulmonary Disease
PROC: 0T9330Z Drainage of Right Kidney Pelvis with Drainage Device, Percutaneous Approach (ICD-10-PCS; 2017-11-19)
PROC: 0T9430Z Drainage of Left Kidney Pelvis with Drainage Device, Percutaneous Approach (ICD-10-PCS; principal; 2017-11-19 13:30)
DX: N40.1 Benign prostatic hyperplasia with lower urinary tract symptoms (principal); N17.9 Acute kidney failure, unspecified; N13.8 Other obstructive and reflux uropathy; N13.39 Other hydronephrosis; N30.01 Acute cystitis with hematuria; E11.22 Type 2 diabetes mellitus with diabetic chronic kidney disease; R97.20 Elevated prostate specific antigen [PSA]; N18.9 Chronic kidney disease, unspecified; J44.9 Chronic obstructive pulmonary disease, unspecified; Z85.51 Personal history of malignant neoplasm of bladder; K59.00 Constipation, unspecified; Z79.84 Long term (current) use of oral hypoglycemic drugs

== ENCOUNTER 2017-12-06 09:11 | Day surgery (SDC) | payer MEDICARE ==
[2017-12-02 11:12] VITALS: BMI 21.4
[2017-12-06] MEDS ORDERED: Lactated Ringer's 1,000 ML IV ONE ×2 (09:57)
[2017-12-06] MEDS ORDERED: Iohexol 300 100 ML IJ ONE (12:26)
[2017-12-06] MEDS ORDERED: Lidocaine 2% Jelly (Uro-Jet) ONE (12:26)
[2017-12-06] MEDS ORDERED: Propofol 10 mg/ml Inj (20 ML) ONE (12:32)
[2017-12-06] MEDS ORDERED: Succinylcholine 200 mg/10 ml Inj IV ONE (12:33)
[2017-12-06] MEDS ORDERED: Midazolam 2 MG/2 ML VIAL ONE (12:33)
[2017-12-06] MEDS ORDERED: Albuterol HFA 90 mcg/actuation (8 g) ONE (12:43)
[2017-12-06] MEDS ORDERED: cefTRIAXone (Rocephin) 1 gm Inj IVPB ONE (12:58)
[2017-12-06 14:58] VITALS: RESP 18
[2017-12-06 17:32] VITALS: BP 127/58; PULSE 80; TEMP 98.4; O2SAT 98
--- NOTE | 2017-12-06 22:03 | OP ---
PROCEDURE DATE: 12/06/2017 PREOPERATIVE DIAGNOSIS: Bladder tumor with bilateral obstructive uropathy. POSTOPERATIVE DIAGNOSIS: Bladder tumor with bilateral obstructive uropathy. PROCEDURE PERFORMED ON THE PATIENT: Cystoscopy with transurethral resection of bladder tumor. DESCRIPTION OF PROCEDURE: The patient was placed on the operating room table in dorsal lithotomy position. The area of the groin was draped and prepped in a sterile manner. He was given general anesthesia. At this time, I used a resectoscope to enter into the bladder atraumatically. The tumor bulk was in the area of the trigone of the bladder. I tried initially before any resections to identify either left to right ureteral orifices and I could not, the right side appear to be more occluded with small appearance of and tumor-like growth. The left side just could not identify an orifice. At this time, I resected sparingly around the area of the anatomically positions of the ureters, but I resected what I could of the tumor, cauterized the base, and again did a second look to see if I could see any suspected orifices and I could not. At this time, I suctioned the tissue out that was resected and make sure that there was no active bleeding and then removed the instrumentation. The patient then was taken from the operating room in good condition. Blood loss was less than 5 mL. Murray Dewey MD
== END 2017-12-06 18:30 | disposition home or self-care (01) ==
LOC: H.OPSURG 09:11
PROVIDERS: ATTEND Urology
DX: C67.0 Malignant neoplasm of trigone of bladder (principal); J44.9 Chronic obstructive pulmonary disease, unspecified; E11.9 Type 2 diabetes mellitus without complications; N13.9 Obstructive and reflux uropathy, unspecified
CPT/HCPCS: 52234; 82948; 88305; J0330; J0696; J2001; J2250; J2270; J2405; J2704; J3010; J7120

== ENCOUNTER 2017-12-18 04:07 | Inpatient (IN) | payer MEDICARE ==
[2017-12-18 04:07] VITALS: BMI 21.4
[2017-12-18] MEDS ORDERED: Morphine 4 MG/ML VIAL IVP ONE (04:48)
[2017-12-18] MEDS ORDERED: Morphine 4 MG/ML VIAL ONE (04:55)
--- NOTE | 2017-12-18 05:25 | ED PDOC ---
HPI: General Adult Time Seen by Provider: 12/18/17 04:32 Chief Complaint (Nursing): Back Pain Chief Complaint (Provider): Back Pain History Per: Patient History/Exam Limitations: no limitations Onset/Duration Of Symptoms: Days Current Symptoms Are (Timing): Still Present Additional Complaint(s): 77 year old male presents to the emergency department with back pain x1 week. Patient was recently diagnosed with bladder cancer and had nephrostomy tube placed in 2 weeks ago by urologist, Dr. Zuleima CRUZ. Patient then had tubes tired and reports he has not had any urine output and developed bilateral flank pain, left worsen than right. Denies fever, chills, or any further medical complaints. Past Medical History Reviewed: Historical Data, Nursing Documentation, Vital Signs Vital Signs: Last Vital Signs Temp 98.1 F 12/18/17 16:32 Pulse 79 12/18/17 16:32 Resp 20 12/18/17 16:32 BP 144/63 12/18/17 16:32 Pulse Ox 95 12/18/17 16:32 - Medical History PMH: No Chronic Diseases, Diabetes Denies: Chronic Kidney Disease - Surgical History Surgical History: Hernia Repair - Family History Family History: States: Unknown Family Hx - Home Medications Home Medications: Ambulatory Orders Medication Instructions Recorded metFORMIN [glucOPHAGE] 500 mg PO BID 07/26/17 Tamsulosin [Flomax] 0.4 mg PO HS 11/17/17 oxyCODONE/Acetaminophen [Percocet 1 tab PO Q6 PRN #15 tab 11/22/17 5/325 mg Tab] Tramadol HCl/Acetaminophen 1 tab PO PRN PRN 12/18/17 [Tramadol-Acetaminophn 37.5-325] - Allergies Allergies/Adverse Reactions: Allergies Allergy/AdvReac Type Severity Reaction Status Date / Time aspirin Allergy DIZZINESS Verified 11/18/17 06:50 Review of Systems ROS Statement: Except As Marked, All Systems Reviewed And Found Negative (As per HPI, otherwise negative) Constitutional: Negative for: Fever, Chills Musculoskeletal: Positive for: Back Pain (lower region), Other (B/l flank pain ( left>Right)) Physical Exam - Reviewed Nursing Documentation Reviewed: Yes Vital Signs Reviewed: Yes - Physical Exam Appears: Positive for: Uncomfortable Head Exam: Positive for: NORMAL INSPECTION Skin: Positive for: Normal Color, Warm, Dry Cardiovascular/Chest: Positive for: Regular Rate, Rhythm. Negative for: Murmur Respiratory: Positive for: Normal Breath Sounds. Negative for: Accessory Muscle Use, Respiratory Distress Gastrointestinal/Abdominal: Positive for: Normal Exam, Soft, Other (Bilateral nephrostomy tubes noted on inspection. Pigtail catheter engaged but tied off or kinked). Negative for: Tenderness Extremity: Positive for: Normal ROM. Negative for: Pedal Edema Neurologic/Psych: Positive for: Alert, Oriented (x3) - Laboratory Results Result Diagrams: 12/18/17 05:30 12/18/17 05:30 - ECG O2 Sat by Pulse Oximetry: 98 (RA) Pulse Ox Interpretation: Normal Medical Decision Making Medical Decision Making: Time: 8 Initial Impression: Flank pain in setting of recent nephrostomy tube placement Initial Plan: CMP Urine DIP CBC w. diff Morphone 4 mg IVP Urinalysis Renal US reevaluation Discussed case with Dr. Zuleima CRUZ who states tubes can be untied and patient can be connected to normal nephrostomy bag. Time: 0620 --Labs were indicative for acute kidney injury. Pt will be admitted for further treatment as discussed with Dr. Zuleima CRUZ. Nephrostomy tubes were unkinked and connected to Nephrostomy bags. --Admit to hospital routine: as inpatient in med/surg for post obstructive uropathy with LINO under the care of Dr. Ha Clayton MD. Scribe Attestation: Documented by Loraine Vasquez acting as a scribe for Francois Polo MD. Scribe Attestation: All medical record entries made by the Scribe were at my direction and personally dictated by me. I have reviewed the chart and agree that the record accurately reflects my personal performance of the history, physical exam, medical decision making, and the department course for this patient. I have also personally directed, reviewed, and agree with the discharge instructions and disposition. Disposition - Clinical Impression Clinical Impression: Acute kidney injury, Obstructive uropathy - Patient ED Disposition Is Patient to be Admitted: Yes Discussed With Dr.: Ha Clayton (Dr Dewey) - Disposition Disposition Time: 06:20 Condition: FAIR
[2017-12-18 05:35] LABS: BASO % 0.6 % (0.0-2.0); EOS # 0.4 K/uL (0.0-0.7); EOS % 4.7 % (0.0-4.0); HEMOGLOBIN 9.9 g/dL (12.0-18.0); LYMPH % 13.3 % (20.0-40.0); MEAN CELL VOLUME 89.3 fl (80.0-94.0); MEAN CORPUSCULAR HEMOGLOBIN 29.4 pg (27.0-31.0); MEAN CORPUSCULAR HGB CONC 32.9 g/dL (33.0-37.0); MEAN PLATELET VOLUME 7.2 fl (7.2-11.7); MONO # 0.8 K/uL (0.0-0.8); MONO % 10.7 % (0.0-10.0); NEUT # 5.6 K/uL (1.8-7.0); NEUT % 70.7 % (50.0-75.0); RBC 3.36 Mil/uL (4.40-5.90); RED CELL DISTRIBUTION WIDTH 14.3 % (11.5-14.5); WHITE BLOOD COUNT 7.9 K/uL (4.8-10.8)
[2017-12-18 06:18] LABS: ALBUMIN 3.7 g/dL (3.5-5.0); CALCIUM 8.8 mg/dL (8.4-10.2)
[2017-12-18 09:08] LABS: URINE BACTERIA RARE (<OCC); URINE BILIRUBIN NEGATIVE (NEGATIVE); URINE BLOOD LARGE (NEGATIVE); URINE CLARITY CLOUDY (Clear); URINE COLOR YELLOW (YELLOW); URINE GLUCOSE (UA) NEG (Normal); URINE LEUKOCYTE ESTERASE MOD Leu/uL (Negative); URINE PROTEIN 100 mg/dL (NEGATIVE); URINE UROBILINOGEN 0.2-1.0 mg/dL (0.2-1.0)
--- NOTE | 2017-12-18 11:30 | US ---
PROCEDURE: Renal ultrasound dated 12/18/2017 HISTORY: Flank pain. COMPARISON: Comparison made with prior renal ultrasound 12/15/2017.. TECHNIQUE: Sonogram of the kidneys. FINDINGS: RIGHT KIDNEY: Right kidney measures approximate 10.8 x 5.2 x 5.1 cm. In situ right ureteral stent. Normal in size, contour and echogenicity. No stone, solid mass lesion or hydronephrosis visualized. There is an in situ left-sided nephrostomy stent. LEFT KIDNEY: Left kidney measures approximately 14.2 x 5.6 x 6.0 cm. Normal in size, contour and echogenicity. . No obvious masses or calculi. There is moderate left-sided hydronephrosis. In situ left-sided nephrostomy stent is poorly seen. OTHER FINDINGS: None. IMPRESSION: Left-sided hydronephrosis. In situ right-sided the nephrostomy stent is visualized however left nephrostomy stent is visualized on this exam.
[2017-12-18] MEDS ORDERED: levoFLOXacin 500 mg in D5W 500 MG/100 ML BAG IVPB SCH (12:00)
[2017-12-18] MEDS: Dextrose 5%/0.45% NS 1,000 ML IV SCH (12:18)
[2017-12-18 12:45] LABS: URINE BACTERIA RARE (<OCC); URINE BILIRUBIN NEGATIVE (NEGATIVE); URINE BLOOD MODERATE (NEGATIVE); URINE CALCIUM OXALATE CRYSTALS OCC /hpf (<OCC); URINE CLARITY SLIGHTY-CLOUDY (Clear); URINE COLOR YELLOW (YELLOW); URINE GLUCOSE (UA) NEG (Normal); URINE LEUKOCYTE ESTERASE MOD Leu/uL (Negative); URINE PROTEIN 100 mg/dL (NEGATIVE); URINE UROBILINOGEN 0.2-1.0 mg/dL (0.2-1.0)
[2017-12-18] MEDS ORDERED: cefTRIAXone (Rocephin) 1 gm Inj ONE (13:35)
--- NOTE | 2017-12-18 15:36 | HP ---
HISTORY OF PRESENT ILLNESS: Mr. Genao is a 77-year-old male who was admitted via the Emergency Room because of severe back pain. He also has difficulty voiding. He has a history of bladder cancer status post bilateral nephrostomies and was recently seen by his urologist, Dr. Dewey and had nephrostomy clamps because he was not too happy with it, but now is admitted to the Emergency Room because of obstructive uropathy. PAST MEDICAL HISTORY: Bladder cancer, diabetes mellitus, and hernia repair. FAMILY HISTORY: Noncontributory. SOCIAL HISTORY: He does not smoke or drink and lives alone. REVIEW OF SYSTEMS: Essentially remarkable for back pain and difficulty voiding. PHYSICAL EXAMINATION: GENERAL: The patient is alert and oriented. VITAL SIGNS: Blood pressure of 138/73, pulse of 83, and respiratory rate of 18. He is afebrile. O2 sat is 98% on room air. SKIN: Shows fair turgor. HEENT: Pupils are equal and reactive to light and accommodation. NECK: JVP flat. Mouth shows fair hygiene. LUNG: Clear. HEART: Regular, no murmurs or gallops. ABDOMEN: Soft and nontender, no organomegaly. There is bilateral renal stents noted in place, the right one not drained and the left one just recently opened by Dr. Dewey, urologist, draining clear urine. CENTRAL NERVOUS SYSTEM: Exam grossly intact. LABORATORY DATA: Remarkable for WBC of 7.9, hemoglobin of 9.9, and platelet count of 300,000. Sodium 154, potassium 5.1, BUN 78, and creatinine 9.6. Serum glucose 156. IMPRESSION: Obstructive uropathy with acute renal failure (acute kidney injury), diabetes mellitus, and history of bladder cancer, which appears extensive. PLAN: Urology intervention, IV hydration. The patient also has chronic anemia. We will continue therapy as ordered. I will also give IV antibiotics for possible urinary tract infection. Further therapy will depend on findings. Case discussed with Dr. Dewey. Ha Clayton MD
[2017-12-18] MEDS: Oxycodone/Acetaminophen 5/325 mg Tab PO PRN (22:56)
[2017-12-19] MEDS: Dextrose 5%/0.45% NS 1,000 ML IV SCH (04:50)
[2017-12-19 08:00] LABS: BASO # 0.1 K/uL (0.0-0.2); BASO % 0.8 % (0.0-2.0); EOS # 0.4 K/uL (0.0-0.7); EOS % 6.7 % (0.0-4.0); HEMOGLOBIN 9.4 g/dL (12.0-18.0); LYMPH # 1.1 K/uL (1.0-4.3); LYMPH % 16.7 % (20.0-40.0); MEAN CELL VOLUME 88.9 fl (80.0-94.0); MEAN CORPUSCULAR HEMOGLOBIN 29.8 pg (27.0-31.0); MEAN CORPUSCULAR HGB CONC 33.5 g/dL (33.0-37.0); MEAN PLATELET VOLUME 7.4 fl (7.2-11.7); MONO # 0.7 K/uL (0.0-0.8); MONO % 10.2 % (0.0-10.0); NEUT # 4.3 K/uL (1.8-7.0); NEUT % 65.6 % (50.0-75.0); NRBC % 0.1 % (0.0-0.0); RBC 3.17 Mil/uL (4.40-5.90); RED CELL DISTRIBUTION WIDTH 14.3 % (11.5-14.5); WHITE BLOOD COUNT 6.6 K/uL (4.8-10.8)
[2017-12-19 08:15] LABS: CALCIUM 8.8 mg/dL (8.4-10.2)
--- NOTE | 2017-12-19 11:36 | CP.PCM.PN ---
Subjective - Date & Time of Evaluation Date of Evaluation: 12/19/17 Time of Evaluation: 11:36 - Subjective Subjective: BACK PAIN LESS NEPHROSTOMY TUBES ARE FUNCTIONAL C/O CONSTIPATION Objective - Vital Signs/Intake and Output Vital Signs (last 24 hours): Temp Pulse Resp BP Pulse Ox 98.5 F 86 20 112/65 96 12/19/17 08:47 12/19/17 08:47 12/19/17 08:47 12/19/17 08:47 12/19/17 08:47 Intake and Output: 12/19/17 12/19/17 06:59 18:59 Intake Total 740 Output Total 1000 Balance -260 - Medications Medications: Current Medications Glipizide (Glucotrol) 10 mg PO ACB [facility] Last Admin: 12/19/17 09:57 Dose: 10 mg Dextrose/Sodium Chloride (Dextrose 5%/0.45% Ns 1000 Ml) 1,000 mls @ 60 mls/hr IV .[id number] [facility] Stop: 12/19/17 11:43 Last Admin: 12/19/17 04:50 Dose: Not Given Ceftriaxone Sodium 1 gm/ (Sodium Chloride) 100 mls @ 100 mls/hr IVPB DAILY [facility] PRN Reason: Protocol Last Admin: 12/19/17 09:57 Dose: 100 mls/hr Oxycodone/Acetaminophen (Percocet 5/325 Mg Tab) 1 tab PO Q6 PRN PRN Reason: Pain, severe (8-10) Stop: 12/21/17 11:44 Last Admin: 12/18/17 22:56 Dose: 1 tab Tamsulosin HCl (Flomax) 0.4 mg PO [facility] Last Admin: 12/18/17 22:50 Dose: 0.4 mg - Labs Labs: 12/19/17 06:20 12/19/17 06:20 - Constitutional Appears: Chronically Ill - Head Exam Head Exam: ATRAUMATIC, NORMAL INSPECTION, NORMOCEPHALIC - Eye Exam Eye Exam: EOMI, Normal appearance, PERRL Pupil Exam: NORMAL ACCOMODATION, PERRL - ENT Exam ENT Exam: Mucous Membranes Moist, Normal Exam - Neck Exam Neck Exam: Full ROM, Normal Inspection. absent: Lymphadenopathy - Respiratory Exam Respiratory Exam: Clear to Ausculation Bilateral, NORMAL BREATHING PATTERN - Cardiovascular Exam Cardiovascular Exam: REGULAR RHYTHM, +S1, +S2. absent: Murmur - GI/Abdominal Exam GI & Abdominal Exam: Soft, Normal Bowel Sounds. absent: Tenderness - Rectal Exam Rectal Exam: NORMAL INSPECTION - Extremities Exam Extremities Exam: Full ROM, Normal Capillary Refill, Normal Inspection. absent : Joint Swelling, Pedal Edema - Back Exam Back Exam: NORMAL INSPECTION - Neurological Exam Neurological Exam: Alert, Awake, CN II-XII Intact, Normal Gait, Oriented x3 - Psychiatric Exam Psychiatric exam: Normal Affect, Normal Mood - Skin Skin Exam: Dry, Intact, Normal Color, Warm Assessment and Plan - Assessment and Plan (Free Text) Assessment: OBSTRUCTIVE UROPATHY BLADDER CANCER ANEMIA DIABETES GENERAL DEBILITY Plan: IV HYDRATION HEME/ONC EVAL UROLOGY FOLLOWUP PROGNOSIS IS GUARDED
[2017-12-19] MEDS ORDERED: Sodium Chloride 0.45% 1,000 ML IV SCH (11:45)
--- NOTE | 2017-12-19 21:49 | CP.PCM.CON ---
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 The patient notes to severe back pain at the site of his nephrostomy tubes which led him to come to the ER. He does have difficulty passing urine. He denies weightloss but feels his appetite is diminished. Review of his CT scan in 11/2017 showed pelvic and retroperitoneal lymphoadenopathy and a RLL lung nodule. Past medical history: DM, urothelial cancer Past surgical history: Hernia repair Family history: Denies hematologic and oncologic problems Social history: Former tobacco, denies alcohol, and illicit drug use. Allergies: Aspirin Review of systems: All remaining review of systems including HEENT, cardiovascular, respiratory, gastrointestinal, genitourinary, musculoskeletal, dermatologic, neurologic, and psychiatric are negative unless mentioned in the HPI. Past Patient History - Infectious Disease Hx of Infectious Diseases: None - Past Medical History & Family History Past Medical History?: Yes - Past Social History Smoking Status: Never Smoked - CARDIAC Hx Cardiac Disorders: No - PULMONARY Hx Respiratory Disorders: No - NEUROLOGICAL Hx Neurological Disorder: No - HEENT Hx HEENT Problems: No - RENAL Hx Chronic Kidney Disease: No - ENDOCRINE/METABOLIC Hx Endocrine Disorders: Yes - HEMATOLOGICAL/ONCOLOGICAL Hx Blood Disorders: Yes Hx Anemia: Yes - INTEGUMENTARY Hx Dermatological Problems: No - MUSCULOSKELETAL/RHEUMATOLOGICAL Hx Musculoskeletal Disorders: No Hx Falls: No - GASTROINTESTINAL Hx Gastrointestinal Disorders: No - GENITOURINARY/GYNECOLOGICAL Hx Genitourinary Disorders: Yes - PSYCHIATRIC Hx Substance Use: No - SURGICAL HISTORY Hx Surgeries: Yes Hx Herniorrhaphy: Yes (> 20 YRS AGO) Other/Comment: Hx TURBT with 07/2017. Hx cystoscopy - Transurethral resection of bladder tumor 12/06/17. Hx Bilateral Nephrostomy tube placement 08/30 - ANESTHESIA Hx Anesthesia: Yes Hx Anesthesia Reactions: No Hx Malignant Hyperthermia: No Meds Allergies/Adverse Reactions: Allergies Allergy/AdvReac Type Severity Reaction Status Date / Time aspirin Allergy DIZZINESS Verified 11/18/17 06:50 - Medications Medications: Current Medications Glipizide (Glucotrol) 10 mg PO ACB [facility] Last Admin: 12/19/17 09:57 Dose: 10 mg Ceftriaxone Sodium 1 gm/ (Sodium Chloride) 100 mls @ 100 mls/hr IVPB DAILY [facility] PRN Reason: Protocol Last Admin: 12/19/17 09:57 Dose: 100 mls/hr Sodium Chloride (Sodium Chloride 0.45%) 1,000 mls @ 40 mls/hr IV .Q24H [facility] Stop: 12/20/17 11:38 Last Admin: 12/19/17 11:47 Dose: 40 mls/hr Oxycodone/Acetaminophen (Percocet 5/325 Mg Tab) 1 tab PO Q6 PRN PRN Reason: Pain, severe (8-10) Stop: 12/21/17 11:44 Last Admin: 12/18/17 22:56 Dose: 1 tab Tamsulosin HCl (Flomax) 0.4 mg PO HS [facility] Last Admin: 12/19/17 21:41 Dose: 0.4 mg Physical Exam - Head Exam Head Exam: ATRAUMATIC - Eye Exam Eye Exam: Normal appearance - ENT Exam ENT Exam: Mucous Membranes Dry - Respiratory Exam Respiratory Exam: NORMAL BREATHING PATTERN - Cardiovascular Exam Cardiovascular Exam: +S1, +S2 - GI/Abdominal Exam GI & Abdominal Exam: Normal Bowel Sounds - Extremities Exam Extremities exam: Positive for: normal inspection - Neurological Exam Neurological exam: Oriented x3 - Psychiatric Exam Psychiatric exam: Normal Affect, Normal Mood - Skin Skin Exam: Warm Results - Vital Signs Recent Vital Signs: Last Vital Signs Temp 98.3 F 12/19/17 15:37 Pulse 76 12/19/17 15:37 Resp 18 12/19/17 15:37 BP 115/53 L 12/19/17 15:37 Pulse Ox 96 12/19/17 15:37 - Labs Result Diagrams: 12/19/17 06:20 12/19/17 06:20 Labs: Laboratory Results - last 24 hr 12/18/17 12/19/17 12/19/17 13:32 00:48 05:32 WBC RBC Hgb Hct MCV MCH MCHC RDW Plt Count MPV Neut % (Auto) Lymph % (Auto) [place] % (Auto) Eos % (Auto) Baso % (Auto) Neut # (Auto) Lymph # (Auto) [place] # (Auto) Eos # (Auto) Baso # (Auto) Sodium Potassium Chloride Carbon Dioxide Anion Gap BUN Creatinine Est GFR ( Amer) Est GFR (Non-Af Amer) POC Glucose (mg/dL) 122 H 118 H 127 H Random Glucose Calcium 12/19/17 12/19/17 12/19/17 06:20 06:20 11:00 WBC 6.6 RBC 3.17 L Hgb 9.4 L Hct 28.2 L MCV 88.9 MCH 29.8 MCHC 33.5 RDW 14.3 Plt Count 294 MPV 7.4 Neut % (Auto) 65.6 Lymph % (Auto) 16.7 L [place] % (Auto) 10.2 H Eos % (Auto) 6.7 H Baso % (Auto) 0.8 Neut # (Auto) 4.3 Lymph # (Auto) 1.1 [place] # (Auto) 0.7 Eos # (Auto) 0.4 Baso # (Auto) 0.1 Sodium 143 Potassium 5.5 H Chloride 107 Carbon Dioxide 20 L Anion Gap 22 H BUN 71 H Creatinine 8.6 H* Est GFR ( Amer) 7 Est GFR (Non-Af Amer) 6 POC Glucose (mg/dL) 154 H Random Glucose 113 H Calcium 8.8 12/19/17 12/19/17 12/19/17 16:27 16:38 17:49 WBC RBC Hgb Hct MCV MCH MCHC RDW Plt Count MPV Neut % (Auto) Lymph % (Auto) [place] % (Auto) Eos % (Auto) Baso % (Auto) Neut # (Auto) Lymph # (Auto) [place] # (Auto) Eos # (Auto) Baso # (Auto) Sodium Potassium Chloride Carbon Dioxide Anion Gap BUN Creatinine Est GFR ( Amer) Est GFR (Non-Af Amer) POC Glucose (mg/dL) 49 L 53 L 113 H Random Glucose Calcium 12/19/17 21:17 WBC RBC Hgb Hct MCV MCH MCHC RDW Plt Count MPV Neut % (Auto) Lymph % (Auto) [place] % (Auto) Eos % (Auto) Baso % (Auto) Neut # (Auto) Lymph # (Auto) [place] # (Auto) Eos # (Auto) Baso # (Auto) Sodium Potassium Chloride Carbon Dioxide Anion Gap BUN Creatinine Est GFR ( Amer) Est GFR (Non-Af Amer) POC Glucose (mg/dL) 98 Random Glucose Calcium Assessment & Plan (1) Bladder cancer Assessment and Plan: imaging shows pelvic, retroperitoneal, and lung lesion ? metastatic disease would benefit from contrast enhanced scan of the chest if renal function normalizes ? primary lung ca vs metastasis to lung ? peripheral lung lesion is amenable to percutanous biopsy obstructive uropathy per urology pt asked if I can review his diagnosis with his brother in law; I will plan to speak to him tomorrow Status: Acute (2) Anemia Assessment and Plan: will check ferritin, retic count, b12, folate to further characterize hematuria from bladder cancer Thank you for this interesting consult. Status: Acute
[2017-12-20] MEDS: Oxycodone/Acetaminophen 5/325 mg Tab PO PRN ×2 (02:57→21:16)
--- NOTE | 2017-12-20 08:35 | CP.PCM.PN ---
Subjective - Date & Time of Evaluation Date of Evaluation: 12/20/17 Time of Evaluation: 08:35 - Subjective Subjective: STILL WEAK VSS Objective - Vital Signs/Intake and Output Vital Signs (last 24 hours): Temp Pulse Resp BP Pulse Ox 97.8 F 75 19 151/62 H 98 12/20/17 08:01 12/20/17 08:01 12/20/17 08:01 12/20/17 08:01 12/20/17 08:01 Intake and Output: 12/20/17 12/20/17 06:59 18:59 Intake Total 150 1200 Output Total 1475 Balance 150 -275 - Medications Medications: Current Medications Glipizide (Glucotrol) 10 mg PO ACB [facility] Last Admin: 12/19/17 09:57 Dose: 10 mg Ceftriaxone Sodium 1 gm/ (Sodium Chloride) 100 mls @ 100 mls/hr IVPB DAILY [facility] PRN Reason: Protocol Last Admin: 12/19/17 09:57 Dose: 100 mls/hr Sodium Chloride (Sodium Chloride 0.45%) 1,000 mls @ 40 mls/hr IV .Q24H [facility] Stop: 12/20/17 11:38 Last Admin: 12/19/17 11:47 Dose: 40 mls/hr Oxycodone/Acetaminophen (Percocet 5/325 Mg Tab) 1 tab PO Q6 PRN PRN Reason: Pain, severe (8-10) Stop: 12/21/17 11:44 Last Admin: 12/20/17 02:57 Dose: 1 tab Tamsulosin HCl (Flomax) 0.4 mg PO HS [facility] Last Admin: 12/19/17 21:41 Dose: 0.4 mg - Labs Labs: 12/19/17 06:20 12/20/17 05:30 - Constitutional Appears: Chronically Ill - Head Exam Head Exam: ATRAUMATIC, NORMAL INSPECTION, NORMOCEPHALIC - Eye Exam Eye Exam: EOMI, Normal appearance, PERRL Pupil Exam: NORMAL ACCOMODATION, PERRL - ENT Exam ENT Exam: Mucous Membranes Moist, Normal Exam - Neck Exam Neck Exam: Full ROM, Normal Inspection. absent: Lymphadenopathy - Respiratory Exam Respiratory Exam: Clear to Ausculation Bilateral, NORMAL BREATHING PATTERN - Cardiovascular Exam Cardiovascular Exam: REGULAR RHYTHM, +S1, +S2. absent: Murmur - GI/Abdominal Exam GI & Abdominal Exam: Soft, Normal Bowel Sounds. absent: Tenderness - Rectal Exam Rectal Exam: NORMAL INSPECTION - Extremities Exam Extremities Exam: Full ROM, Normal Capillary Refill, Normal Inspection. absent : Joint Swelling, Pedal Edema - Back Exam Back Exam: NORMAL INSPECTION - Neurological Exam Neurological Exam: Alert, Awake, CN II-XII Intact, Normal Gait, Oriented x3 - Psychiatric Exam Psychiatric exam: Normal Affect, Normal Mood - Skin Skin Exam: Dry, Intact, Normal Color, Warm Assessment and Plan - Assessment and Plan (Free Text) Assessment: BLADDER CANCER PULMONARY LESIONS--?METS/PRIMARY LUNG CANCER OBSTRUCTIVE UROPATHY DM Plan: CONTINUE IV HYDRATION UROLOGY AND ONCOLOGY FOLLOWUP
[2017-12-20 12:56] LABS: FOLATE 10.9 ng/mL
--- NOTE | 2017-12-21 09:42 | CP.PCM.PN ---
Subjective - Date & Time of Evaluation Date of Evaluation: 12/21/17 Time of Evaluation: 09:45 - Subjective Subjective: OOB TO CHAIR POOR UNDERSTANDING OF ILLNESS Objective - Vital Signs/Intake and Output Vital Signs (last 24 hours): Temp Pulse Resp BP Pulse Ox 97.9 F 81 19 125/66 97 12/21/17 08:03 12/21/17 08:03 12/21/17 08:03 12/21/17 08:03 12/21/17 08:03 - Medications Medications: Current Medications Glipizide (Glucotrol) 10 mg PO ACB [facility] Last Admin: 12/21/17 08:27 Dose: 10 mg Ceftriaxone Sodium 1 gm/ (Sodium Chloride) 100 mls @ 100 mls/hr IVPB DAILY [facility] PRN Reason: Protocol Last Admin: 12/21/17 09:29 Dose: 100 mls/hr Oxycodone/Acetaminophen (Percocet 5/325 Mg Tab) 1 tab PO Q6 PRN PRN Reason: Pain, severe (8-10) Stop: 12/21/17 11:44 Last Admin: 12/20/17 21:16 Dose: 1 tab Tamsulosin HCl (Flomax) 0.4 mg PO HS [facility] Last Admin: 12/20/17 21:17 Dose: 0.4 mg - Labs Labs: 12/19/17 06:20 12/21/17 05:45 - Constitutional Appears: Chronically Ill - Head Exam Head Exam: ATRAUMATIC, NORMAL INSPECTION, NORMOCEPHALIC - Eye Exam Eye Exam: EOMI, Normal appearance, PERRL Pupil Exam: NORMAL ACCOMODATION, PERRL - ENT Exam ENT Exam: Mucous Membranes Moist, Normal Exam - Neck Exam Neck Exam: Full ROM, Normal Inspection. absent: Lymphadenopathy - Respiratory Exam Respiratory Exam: Clear to Ausculation Bilateral, NORMAL BREATHING PATTERN - Cardiovascular Exam Cardiovascular Exam: REGULAR RHYTHM, +S1, +S2. absent: Murmur - GI/Abdominal Exam GI & Abdominal Exam: Soft, Normal Bowel Sounds. absent: Tenderness - Rectal Exam Rectal Exam: NORMAL INSPECTION - Exam Additional comments: NEPHROSTOMY TUBES DRAINING PINK URINE - Extremities Exam Extremities Exam: Full ROM, Normal Capillary Refill, Normal Inspection. absent : Joint Swelling, Pedal Edema - Back Exam Back Exam: NORMAL INSPECTION - Neurological Exam Neurological Exam: Alert, Awake, CN II-XII Intact, Normal Gait, Oriented x3 - Psychiatric Exam Psychiatric exam: Normal Affect, Normal Mood - Skin Skin Exam: Dry, Intact, Normal Color, Warm Assessment and Plan - Assessment and Plan (Free Text) Assessment: ACUTE RENAL FAILUREB DUE TO OBSTRUCTIVE UROPATHY--IMPROVING BLADDER CANCER DM-STABLE ANEMIA Plan: CONTINUE IV HYDRATION WILL DISCUS FURTHER RX WITH ONCOLOGY PROGNOSIS IS POOR CASE DISCUSSED WITH UROLOGIST--DR SERRATO WEDGER AND GLUER CONSULTS
--- NOTE | 2017-12-21 10:52 | CP.PCM.PN ---
Subjective - Date & Time of Evaluation Date of Evaluation: 12/21/17 Time of Evaluation: 10:30 - Subjective Subjective: Has some back pain For CT chest today Discussed with IR; peripheral lung nodule accessible for percutaneous biopsy but will await CT chest results for final decision. Objective - Vital Signs/Intake and Output Vital Signs (last 24 hours): Temp Pulse Resp BP Pulse Ox 97.9 F 81 19 125/66 97 12/21/17 08:03 12/21/17 08:03 12/21/17 08:03 12/21/17 08:03 12/21/17 08:03 - Medications Medications: Current Medications Glipizide (Glucotrol) 10 mg PO ACB [facility] Last Admin: 12/21/17 08:27 Dose: 10 mg Ceftriaxone Sodium 1 gm/ (Sodium Chloride) 100 mls @ 100 mls/hr IVPB DAILY [facility] PRN Reason: Protocol Last Admin: 12/21/17 09:29 Dose: 100 mls/hr Sodium Chloride (Sodium Chloride 0.45%) 1,000 mls @ 100 mls/hr IV .Q10H [facility] Stop: 12/22/17 09:47 Oxycodone/Acetaminophen (Percocet 5/325 Mg Tab) 1 tab PO Q6 PRN PRN Reason: Pain, severe (8-10) Stop: 12/21/17 11:44 Last Admin: 12/20/17 21:16 Dose: 1 tab Tamsulosin HCl (Flomax) 0.4 mg PO HS [facility] Last Admin: 12/20/17 21:17 Dose: 0.4 mg - Labs Labs: 12/19/17 06:20 12/21/17 05:45 - Head Exam Head Exam: ATRAUMATIC - Eye Exam Eye Exam: Normal appearance - ENT Exam ENT Exam: Mucous Membranes Dry - Respiratory Exam Respiratory Exam: NORMAL BREATHING PATTERN - Cardiovascular Exam Cardiovascular Exam: +S1, +S2 - GI/Abdominal Exam GI & Abdominal Exam: Normal Bowel Sounds Assessment and Plan (1) Bladder cancer Assessment & Plan: ? metastatic disease CT chest for possible percutaneous biopsy of lung lesion Status: Acute (2) Anemia Assessment & Plan: anemia of chronic disease and renal disease Status: Acute
--- NOTE | 2017-12-21 11:21 | CP.PCM.PN ---
Subjective - Date & Time of Evaluation Date of Evaluation: 12/20/17 Time of Evaluation: 20:00 - Subjective Subjective: Has some back pain. Discussed with the patient and his brother in law the need for lung lesion biopsy to evaluate for metastatic disease vs primary lung cancer Pt is agreeable to biopsy, will order CT chest and discuss with IR in AM. Objective - Vital Signs/Intake and Output Vital Signs (last 24 hours): Temp Pulse Resp BP Pulse Ox 97.9 F 81 19 125/66 97 12/21/17 08:03 12/21/17 08:03 12/21/17 08:03 12/21/17 08:03 12/21/17 08:03 - Medications Medications: Current Medications Glipizide (Glucotrol) 10 mg PO ACB [facility] Last Admin: 12/21/17 08:27 Dose: 10 mg Ceftriaxone Sodium 1 gm/ (Sodium Chloride) 100 mls @ 100 mls/hr IVPB DAILY [facility] PRN Reason: Protocol Last Admin: 12/21/17 09:29 Dose: 100 mls/hr Sodium Chloride (Sodium Chloride 0.45%) 1,000 mls @ 100 mls/hr IV .Q10H [facility] Stop: 12/22/17 09:47 Oxycodone/Acetaminophen (Percocet 5/325 Mg Tab) 1 tab PO Q6 PRN PRN Reason: Pain, severe (8-10) Stop: 12/21/17 11:44 Last Admin: 12/20/17 21:16 Dose: 1 tab Tamsulosin HCl (Flomax) 0.4 mg PO HS [facility] Last Admin: 12/20/17 21:17 Dose: 0.4 mg - Labs Labs: 12/19/17 06:20 12/21/17 05:45 - Head Exam Head Exam: ATRAUMATIC - Eye Exam Eye Exam: Normal appearance - ENT Exam ENT Exam: Mucous Membranes Dry - Respiratory Exam Respiratory Exam: NORMAL BREATHING PATTERN - Cardiovascular Exam Cardiovascular Exam: +S1, +S2 - GI/Abdominal Exam GI & Abdominal Exam: Normal Bowel Sounds Assessment and Plan (1) Bladder cancer Assessment & Plan: evaluation for metastatic disease Status: Acute (2) Anemia Assessment & Plan: chronic disease and hematuria Status: Acute
--- NOTE | 2017-12-21 13:29 | CT ---
PROCEDURE: CT Chest without contrast HISTORY: bladder cancer staging COMPARISON: None. TECHNIQUE: Contiguous axial images were obtained through the chest without intravenous contrast enhancement. Sagittal and coronal reconstructions were performed. Radiation dose (DLP): 318.93 mGy-cm. This CT exam was performed using one or more of the following dose reduction techniques: Automated exposure control, adjustment of the mA and/or kV according to patient size, and/or use of iterative reconstruction technique. FINDINGS: LUNGS: Stable mass basilar segment right lower lobe 2 x 2.5 x 3.8 cm. No additional pulmonary nodules or masses. MEDIASTINUM: Unremarkable thoracic aorta. No aneurysm. Normal sized heart. Main pulmonary artery unremarkable. No vascular congestion. No lymphadenopathy. PLEURA: No pleural fluid. No pneumothorax. BONES: Sclerotic lesions T5 and T12 vertebral body suspicious for metastatic disease. A smaller sclerotic focus identified affecting the T6 vertebral body. But additional blastic lesion identified lamina T7 on the left. No lytic abnormalities identified. Additional sclerotic focus right 2nd rib. UPPER ABDOMEN: Incompletely visualize nephrostomy catheter on the right. OTHER FINDINGS: None. IMPRESSION: Stable mass right lower lobe. No additional pulmonary nodules or masses identified. 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 Additional sclerotic findings identified in right ribs.
[2017-12-21] MEDS: Sodium Chloride 0.45% 1,000 ML IV SCH (18:31)
[2017-12-22] MEDS ORDERED: Oxycodone/Acetaminophen 5/325 mg Tab PO ONE (01:10)
[2017-12-22 07:26] LABS: CALCIUM 9.1 mg/dL (8.4-10.2)
--- NOTE | 2017-12-22 10:22 | CP.PCM.PN ---
Subjective - Date & Time of Evaluation Date of Evaluation: 12/22/17 Time of Evaluation: 10:24 - Subjective Subjective: HEMATURIA IMPROVED BACK PAIN LESS Objective - Vital Signs/Intake and Output Vital Signs (last 24 hours): Temp Pulse Resp BP Pulse Ox 97.7 F 78 19 146/67 98 12/22/17 07:55 12/22/17 07:55 12/22/17 07:55 12/22/17 07:55 12/22/17 07:55 - Medications Medications: Current Medications Glipizide (Glucotrol) 10 mg PO ACB [facility] Last Admin: 12/22/17 07:59 Dose: 10 mg Ceftriaxone Sodium 1 gm/ (Sodium Chloride) 100 mls @ 100 mls/hr IVPB DAILY [facility] PRN Reason: Protocol Last Admin: 12/22/17 10:00 Dose: 100 mls/hr Tamsulosin HCl (Flomax) 0.4 mg PO HS [facility] Last Admin: 12/21/17 22:32 Dose: 0.4 mg - Labs Labs: 12/19/17 06:20 12/22/17 06:00 - Constitutional Appears: Chronically Ill - Head Exam Head Exam: ATRAUMATIC, NORMAL INSPECTION, NORMOCEPHALIC - Eye Exam Eye Exam: EOMI, Normal appearance, PERRL Pupil Exam: NORMAL ACCOMODATION, PERRL - ENT Exam ENT Exam: Mucous Membranes Moist, Normal Exam - Neck Exam Neck Exam: Full ROM, Normal Inspection. absent: Lymphadenopathy - Respiratory Exam Respiratory Exam: Clear to Ausculation Bilateral, NORMAL BREATHING PATTERN - Cardiovascular Exam Cardiovascular Exam: REGULAR RHYTHM, +S1, +S2. absent: Murmur - GI/Abdominal Exam GI & Abdominal Exam: Soft, Normal Bowel Sounds. absent: Tenderness - Rectal Exam Rectal Exam: NORMAL INSPECTION - Extremities Exam Extremities Exam: Full ROM, Normal Capillary Refill, Normal Inspection. absent : Joint Swelling, Pedal Edema - Back Exam Back Exam: NORMAL INSPECTION - Neurological Exam Neurological Exam: Alert, Awake, CN II-XII Intact, Normal Gait, Oriented x3 - Psychiatric Exam Psychiatric exam: Normal Affect, Normal Mood - Skin Skin Exam: Dry, Intact, Normal Color, Warm Assessment and Plan - Assessment and Plan (Free Text) Assessment: OBSTRUCTIVE UROPATHY IMPROVING UTI PULMONARY NODULE ?THORACIC SPINE METS/SCLEROSIS DM Plan: CONTINUE PRESENT RX PO ANTIBIOTICS D/C IN AM PT TO FOLLOWUP WIT ONCOLOGIST RE-CHEMOTHERAPY
[2017-12-22] MEDS ORDERED: Sodium Chloride 0.45% 1,000 ML IV SCH (10:30)
[2017-12-22] MEDS: Sodium Chloride 0.45% 1,000 ML IV SCH (10:38)
[2017-12-22] MEDS: Amoxicillin-Clav 875-125 mg Tab PO SCH ×2 (12:15→22:52)
--- NOTE | 2017-12-22 12:23 | CP.PCM.PN ---
Subjective - Date & Time of Evaluation Date of Evaluation: 12/22/17 Time of Evaluation: 11:15 - Subjective Subjective: Back pain improved Objective - Vital Signs/Intake and Output Vital Signs (last 24 hours): Temp Pulse Resp BP Pulse Ox 97.7 F 78 19 146/67 98 12/22/17 07:55 12/22/17 07:55 12/22/17 07:55 12/22/17 07:55 12/22/17 07:55 - Medications Medications: Current Medications Amoxicillin/Clavulanate Potassium (Augmentin 875 Mg-125 Mg Tab) 1 tab PO Q12 MIKE PRN Reason: Protocol Glipizide (Glucotrol) 10 mg PO ACB MIKE Last Admin: 12/22/17 07:59 Dose: 10 mg Sodium Chloride (Sodium Chloride 0.45%) 1,000 mls @ 40 mls/hr IV .Q24H MIKE Stop: 12/23/17 10:27 Tamsulosin HCl (Flomax) 0.4 mg PO HS MIKE Last Admin: 12/21/17 22:32 Dose: 0.4 mg - Labs Labs: 12/19/17 06:20 12/22/17 06:00 - Head Exam Head Exam: ATRAUMATIC - Eye Exam Eye Exam: Normal appearance - ENT Exam ENT Exam: Mucous Membranes Dry - Respiratory Exam Respiratory Exam: NORMAL BREATHING PATTERN - Cardiovascular Exam Cardiovascular Exam: +S1, +S2 - GI/Abdominal Exam GI & Abdominal Exam: Normal Bowel Sounds Assessment and Plan (1) Bladder cancer Assessment & Plan: imaging suggestive of metastatic disease to the bone and retroperitoneal/pelvic lymph nodes outpatient chemotherapy/immunoptherapy Status: Acute (2) Anemia Assessment & Plan: chronic disease improved hematuria Status: Acute
[2017-12-23 00:53] VITALS: PULSE 79
[2017-12-23] MEDS ORDERED: Oxycodone/Acetaminophen 5/325 mg Tab PO ONE (04:04)
[2017-12-23 07:08] LABS: CALCIUM 8.8 mg/dL (8.4-10.2)
[2017-12-23 08:14] VITALS: BP 152/72; RESP 18; TEMP 98.4; O2SAT 96
--- NOTE | 2017-12-23 08:42 | CP.PCM.DIS ---
Provider - Provider Date of Admission: 12/18/17 06:20 Attending physician: Ha Clayton MD Time Spent in preparation of Discharge (in minutes): 30 Diagnosis - Discharge Diagnosis (1) Acute kidney injury Status: Acute (2) Obstructive uropathy Status: Acute (3) Anemia Status: Acute (4) Bladder cancer Status: Acute (5) Diabetes 1.5, managed as type 2 Status: Acute (6) UTI (urinary tract infection) Status: Acute Hospital Course - Lab Results Lab Results: Micro Results 12/18/17 12:00 Urine,Kidney Urine Culture - Final Enterococcus Faecalis Most Recent Lab Values WBC 6.6 K/uL (4.8-10.8) 12/19/17 06:20 RBC 3.17 Mil/uL (4.40-5.90) L 12/19/17 06:20 Hgb 9.4 g/dL (12.0-18.0) L 12/19/17 06:20 Hct 28.2 % (35.0-51.0) L 12/19/17 06:20 MCV 88.9 fl (80.0-94.0) 12/19/17 06:20 MCH 29.8 pg (27.0-31.0) 12/19/17 06:20 MCHC 33.5 g/dL (33.0-37.0) 12/19/17 06:20 RDW 14.3 % (11.5-14.5) 12/19/17 06:20 Plt Count 294 K/uL (130-400) 12/19/17 06:20 MPV 7.4 fl (7.2-11.7) 12/19/17 06:20 Neut % (Auto) 65.6 % (50.0-75.0) 12/19/17 06:20 Lymph % (Auto) 16.7 % (20.0-40.0) L 12/19/17 06:20 [place] % (Auto) 10.2 % (0.0-10.0) H 12/19/17 06:20 Eos % (Auto) 6.7 % (0.0-4.0) H 12/19/17 06:20 Baso % (Auto) 0.8 % (0.0-2.0) 12/19/17 06:20 Neut # (Auto) 4.3 K/uL (1.8-7.0) 12/19/17 06:20 Lymph # (Auto) 1.1 K/uL (1.0-4.3) 12/19/17 06:20 [place] # (Auto) 0.7 K/uL (0.0-0.8) 12/19/17 06:20 Eos # (Auto) 0.4 K/uL (0.0-0.7) 12/19/17 06:20 Baso # (Auto) 0.1 K/uL (0.0-0.2) 12/19/17 06:20 Retic Count 1.0 % (0.5-1.5) 12/20/17 05:30 Sodium 144 mmol/l (132-148) 12/23/17 05:45 Potassium 4.0 MMOL/L (3.6-5.0) 12/23/17 05:45 Chloride 105 mmol/L (98-107) 12/23/17 05:45 Carbon Dioxide 21 mmol/L (22-30) L 12/23/17 05:45 Anion Gap 22 (10-20) H 12/23/17 05:45 BUN 36 mg/dl (9-20) H 12/23/17 05:45 Creatinine 2.3 mg/dl (0.8-1.5) H 12/23/17 05:45 Est GFR ( Amer) 33 12/23/17 05:45 Est GFR (Non-Af Amer) 28 12/23/17 05:45 POC Glucose (mg/dL) 171 mg/dL (65-110) H 12/23/17 05:46 Random Glucose 167 mg/dL (75-110) H 12/23/17 05:45 Calcium 8.8 mg/dL (8.4-10.2) 12/23/17 05:45 Ferritin 455.0 ng/Ml (17.9-464) 12/20/17 05:30 Total Bilirubin 0.5 mg/dl (0.2-1.3) 12/18/17 05:30 AST 31 U/L (17-59) 12/18/17 05:30 ALT 37 U/L (21-72) 12/18/17 05:30 Alkaline Phosphatase 255 U/L (38-126) H D 12/18/17 05:30 Total Protein 7.3 G/DL (6.3-8.2) 12/18/17 05:30 Albumin 3.7 g/dL (3.5-5.0) 12/18/17 05:30 Globulin 3.6 gm/dL (2.2-3.9) 12/18/17 05:30 Albumin/Globulin Ratio 1.0 (1.0-2.1) 12/18/17 05:30 Vitamin B12 427 pg/mL (239-931) 12/20/17 05:30 Folate 10.9 ng/mL 12/20/17 05:30 Urine Color Yellow (YELLOW) 12/18/17 12:00 Urine Clarity Slighty-cloudy (Clear) 12/18/17 12:00 Urine pH 7.0 (5.0-8.0) 12/18/17 12:00 Ur Specific [place] 1.012 (1.003-1.030) 12/18/17 12:00 Urine Protein 100 mg/dL (NEGATIVE) 12/18/17 12:00 Urine Glucose (UA) Neg mg/dL (Normal) 12/18/17 12:00 Urine Ketones Negative mg/dL (NEGATIVE) 12/18/17 12:00 Urine Blood Moderate (NEGATIVE) 12/18/17 12:00 Urine Nitrate Negative (NEGATIVE) 12/18/17 12:00 Urine Bilirubin Negative (NEGATIVE) 12/18/17 12:00 Urine Urobilinogen 0.2-1.0 mg/dL (0.2-1.0) 12/18/17 12:00 Ur Leukocyte Esterase Mod [place]/uL (Negative) 12/18/17 12:00 Urine RBC (Auto) 196 /hpf (0-3) H 12/18/17 12:00 Urine Microscopic WBC 40 /hpf (0-5) H 12/18/17 12:00 Calcium Oxalate Crystal Occ /hpf (<OCC) H 12/18/17 12:00 Urine Bacteria Rare (<OCC) 12/18/17 12:00 - Hospital Course Hospital Course: CLINICALLY IMPROVED Discharge Exam - Head Exam Head Exam: ATRAUMATIC - Eye Exam Eye Exam: EOMI, Normal appearance, PERRL Pupil Exam: NORMAL ACCOMODATION, PERRL - GI/Abdominal Exam GI & Abdominal Exam: Normal Bowel Sounds - Rectal Exam Rectal Exam: NORMAL INSPECTION - Neurological Exam Neurological exam: Alert, CN II-XII Intact, Normal Gait, Oriented x3, Reflexes Normal - Psychiatric Exam Psychiatric exam: Normal Affect, Normal Mood - Skin Skin Exam: Dry, Intact, Normal Color, Warm Discharge Plan - Follow Up Plan Condition: FAIR Disposition: HOME/ ROUTINE Patient education suggested?: Yes Instructions: Urinary Obstruction (DC) Additional Instructions: follow up with your primary MD and urologist Referrals: Gopal Brewer MD [Staff Provider] - Murray Dewey MD [Medical Doctor] -
[2017-12-23] MEDS: Amoxicillin-Clav 875-125 mg Tab PO SCH (09:15)
--- NOTE | 2017-12-23 11:27 | CP.PCM.PN ---
Subjective - Date & Time of Evaluation Date of Evaluation: 12/23/17 Time of Evaluation: 10:00 - Subjective Subjective: Feeling better Objective - Vital Signs/Intake and Output Vital Signs (last 24 hours): Temp Pulse Resp BP Pulse Ox 98.4 F 79 18 152/72 H 96 12/23/17 08:14 12/23/17 08:14 12/23/17 08:14 12/23/17 08:14 12/23/17 08:14 - Medications Medications: Current Medications Amoxicillin/Clavulanate Potassium (Augmentin 875 Mg-125 Mg Tab) 1 tab PO Q12 MIKE PRN Reason: Protocol Last Admin: 12/23/17 09:15 Dose: 1 tab Glipizide (Glucotrol) 10 mg PO ACB [facility] Last Admin: 12/23/17 09:16 Dose: 10 mg Tamsulosin HCl (Flomax) 0.4 mg PO HS [facility] Last Admin: 12/22/17 22:52 Dose: 0.4 mg - Labs Labs: 12/19/17 06:20 12/23/17 05:45 - Head Exam Head Exam: ATRAUMATIC - Eye Exam Eye Exam: Normal appearance - ENT Exam ENT Exam: Mucous Membranes Dry - Respiratory Exam Respiratory Exam: NORMAL BREATHING PATTERN - Cardiovascular Exam Cardiovascular Exam: +S1, +S2 - GI/Abdominal Exam GI & Abdominal Exam: Normal Bowel Sounds Assessment and Plan (1) Bladder cancer Assessment & Plan: appears stage IV by imaging obstructive uropathy with nephrostomy tube and improving creatinine outpatient treatment Status: Acute (2) Anemia Assessment & Plan: chronic disease, improved hematuria Status: Acute
--- NOTE | 2017-12-23 14:00 | CP.PCM.PCO ---
Physician Communication Note - Physician Communication Note Physician Communication Note: Refer to [facility] for home care
== END 2017-12-23 12:17 | disposition home health service (06) | DRG 683 ==
LOC: H.ER 04:07 → H.ERHOLD 06:20 → H.MEDSURG1 15:06
PROVIDERS: ADMIT Internal Medicine Pulmonary Disease; ATTEND Internal Medicine Pulmonary Disease
DX: N17.9 Acute kidney failure, unspecified (principal); N13.8 Other obstructive and reflux uropathy; C79.51 Secondary malignant neoplasm of bone; N39.0 Urinary tract infection, site not specified; C67.9 Malignant neoplasm of bladder, unspecified; D63.1 Anemia in chronic kidney disease; B95.2 Enterococcus as the cause of diseases classified elsewhere; E11.9 Type 2 diabetes mellitus without complications; K59.00 Constipation, unspecified; R91.1 Solitary pulmonary nodule; Z87.891 Personal history of nicotine dependence; Z79.84 Long term (current) use of oral hypoglycemic drugs; Z88.6 Allergy status to analgesic agent

== ENCOUNTER 2017-12-30 08:58 | Day surgery (SDC) | payer MEDICARE ==
[2017-12-30 09:24] VITALS: BMI 22.1
[2017-12-30] MEDS ORDERED: Lactated Ringer's 1,000 ML IV ONE (10:20)
[2017-12-30 10:22] LABS: BASO % 0.1 % (0.0-2.0); EOS # 0.3 K/uL (0.0-0.7); EOS % 2.4 % (0.0-4.0); HEMOGLOBIN 9.9 g/dL (12.0-18.0); LYMPH # 0.6 K/uL (1.0-4.3); LYMPH % 5.3 % (20.0-40.0); MEAN CELL VOLUME 87.7 fl (80.0-94.0); MEAN CORPUSCULAR HEMOGLOBIN 29.9 pg (27.0-31.0); MEAN CORPUSCULAR HGB CONC 34.1 g/dL (33.0-37.0); MONO # 0.7 K/uL (0.0-0.8); MONO % 6.7 % (0.0-10.0); NEUT # 9.3 K/uL (1.8-7.0); NEUT % 85.5 % (50.0-75.0); PLATELET COUNT 285 K/uL (130-400); RBC 3.33 Mil/uL (4.40-5.90); RED CELL DISTRIBUTION WIDTH 14.7 % (11.5-14.5); WHITE BLOOD COUNT 10.8 K/uL (4.8-10.8)
[2017-12-30 10:36] LABS: INR 1.2 (0.9-1.2); PARTIAL THROMBOPLASTIN TIME 28.6 Seconds (25.6-37.1); PROTHROMBIN TIME 13.4 Seconds (9.8-13.1)
[2017-12-30 10:50] LABS: CALCIUM 9.1 mg/dL (8.4-10.2)
[2017-12-30 11:17] LABS: EOSINOPHIL 5 % (0-7); LYMPHOCYTE 6 % (20-50); MONOCYTE 10 % (0-10); NEUTROPHIL 79 % (42-75); PLATELET ESTIMATE NORMAL (NORMAL); TOTAL CELLS COUNTED 100
[2017-12-30 11:18] LABS: HYPOCHROMIC SLIGHT; TOXIC GRANULATION PRESENT
[2017-12-30] MEDS ORDERED: Ciprofloxacin 200mg/100ml D5W 100 ML IVPB ONE (12:16)
--- NOTE | 2017-12-30 12:18 | CP.SDSHP ---
Same Day Surgery H & P - History Proposed Procedure: left PCN exchange Pre-Op Diagnosis: malfunctioning left PCN - Allergies Allergies: Allergies aspirin Allergy (Verified 11/18/17 06:50) DIZZINESS - Physical Exam Vital Signs: Vital Signs 12/30/17 10:00 Temperature 98.5 F Pulse Rate 93 H Respiratory 18 Rate Blood Pressure 138/67 O2 Sat by Pulse 99 Oximetry - Impression Impression: 77 yo male w/ bladder ca s/p b/l PCN p/w malfunctioning left PCN; plan left PCN exchange - Date & Time Date: 12/30/17 Time: 12:10 Short Stay Discharge - Short Stay Discharge Admitting Diagnosis/Reason for Visit: OCCLUDED NEPHROSTOMY TUBE Disposition: HOME/ ROUTINE Referrals: FAMILY PROVIDER,NO [Primary Care Provider] -
[2017-12-30] MEDS ORDERED: Iodixanol 320 MG/ML 100 ML BOTTLE IV ONE (12:19)
[2017-12-30] MEDS ORDERED: Lidocaine Hydrochloride 1% 10 ML ONE (12:19)
[2017-12-30] MEDS ORDERED: Midazolam 2 MG/2 ML VIAL ONE (12:25)
[2017-12-30] MEDS ORDERED: Propofol 10 mg/ml Inj (20 ML) ONE (12:26)
--- NOTE | 2017-12-30 12:53 | PCM.SURG1 ---
Surgeon's Initial Post Op Note - Surgeon's Notes Surgeon: Alexsander Flaherty MD Tube Turner: None Type of Anesthesia: MAC Pre-Operative Diagnosis: malfunctioning left PCN Operative Findings: malpositioned left PCN with pigtail in renal parenchyma/ lower pole calyx. exchanged for new 8 turkish PCN with pigtail in renal pelvis Post-Operative Diagnosis: same Operation Performed: L PCN Exchange Specimen/Specimens Removed: n/a Estimated Blood Loss: EBL {In ML}: 0 Date of Surgery/Procedure: 12/30/17 Time of Surgery/Procedure: 12:45
[2017-12-30] MEDS ORDERED: Sodium Chloride 0.9% 500 ML IV ONE (13:00)
[2017-12-30] MEDS ORDERED: Sodium Chloride 0.9% 1,000 ML IV SCH (13:15)
[2017-12-30 14:21] VITALS: PULSE 87
[2017-12-30 14:56] VITALS: BP 147/60; RESP 18; TEMP 98.8; O2SAT 95
--- NOTE | 2017-12-30 15:44 | RAD ---
PROCEDURE: LEFT NEPHROSTOMY TUBE EXCHANGE CLINICAL HISTORY: 77-year-old male with bladder carcinoma and obstructive uropathy causing bilateral hydronephrosis status post bilateral percutaneous nephrostomy tube insertion and malfunctioning left nephrostomy tube is referred to Interventional Radiology for routine nephrostomy tube exchange. COMPARISON: Renal ultrasounds dated 12/18/2017 and 12/15/2017; bilateral nephrostomy tube insertion performed 11/19/2017. PROCEDURE: 1. Over the wire exchange of left nephrostomy tube. PRE-PROCEDURE FINDINGS: 1. Fluoroscopic master technician image demonstrated left nephrostomy tube projecting over the left flank. 2. Antegrade nephrostogram demonstrated pigtail in the renal parenchyma/lower pole calyx with opacification of the collecting system. Mild stenosis at the ureteral pelvic junction. POST-PROCEDURE FINDINGS: 1. Successful over the wire exchange of left nephrostomy tube with pigtail in the renal pelvis. INTERVENTIONAL RADIOLOGIST: Alexsander Flaherty M.D. (the attending was present for the entire procedure) ANESTHESIA: Provided by the attending anesthesiologist. Sedation was supervised by the anesthesiology attending with the presence of independent radiology nursing monitoring. Physiological data monitoring was performed throughout the entire procedure. The patient's blood pressure, EKG and pulse oximetry were recorded. The patient tolerated the procedure and sedation without untoward reactions. The intra-procedural sedation time was 15 minutes. MEDICATIONS: Lidocaine 1% for local subcutaneous analgesia. CONTRAST: 10 mL contrast. COMPLICATIONS: None. RADIATION DOSE: Fluoroscopy Time: 112.5 seconds Cumulative Dose: 37.28 mGy PROCEDURE DESCRIPTION AND FINDINGS: The risks, benefits, alternatives and possible complications of the procedure were fully discussed; all questions were answered and informed consent was obtained. The patient was brought into the interventional suite and a pre-procedure 'time-out' was performed. The patient was placed on the fluoroscopy table in the prone position. The left flank was prepped and draped in the usual sterile fashion. Maximum sterile barrier precautions were maintained throughout the entire procedure. Fluoroscopic master technician image of the abdomen and pelvis demonstrated left nephrostomy tube projecting over the left flank. Antegrade nephrostogram performed via the indwelling left nephrostomy tube demonstrated pigtail in the renal parenchyma/ lower pole calyx with opacification of the renal collecting system. Mild stenosis is seen at the ureteral pelvic junction. The external end of the catheter was cut and a 0.035 guidewire was advanced via the remaining portion of the catheter into the renal pelvis. The catheter was removed over the guidewire and exchanged for a new 8 [place] nephrostomy tube. The pigtail was formed in the renal pelvis. Gentle contrast injection confirmed optimal position within the renal pelvis. The catheter was secured to the skin with a 2-0 non-absorbable suture and left to gravity bag drainage externally. A sterile dressing was applied. The patient tolerated the procedure well without immediate post-procedure complications and was transferred to the interventional radiology recovery area in stable condition. IMPRESSION: SUCCESSFUL OVER THE WIRE EXCHANGE OF THE LEFT NEPHROSTOMY TUBE. PATIENT SHOULD RETURN TO INTERVENTIONAL RADIOLOGY IN APPROXIMATELY 7-8 WEEKS FOR ROUTINE BILATERAL NEPHROSTOMY TUBE EXCHANGE.
== END 2017-12-30 16:30 | disposition home or self-care (01) ==
LOC: H.OPSURG 08:58
PROVIDERS: ATTEND Urology
DX: T83.092A Other mechanical complication of nephrostomy catheter, initial encounter (principal); X58.XXXA Exposure to other specified factors, initial encounter; E11.9 Type 2 diabetes mellitus without complications; C67.9 Malignant neoplasm of bladder, unspecified
CPT/HCPCS: 36415; 50435; 75984; 80048; 82948; 85025; 85610; 85730; J0744; J2250; J2704; J3010; J7040; J7120; Q9967

== ENCOUNTER 2018-01-14 01:53 | Emergency (ER) | payer MEDICARE ==
[2018-01-14 01:54] VITALS: BMI 22.1
[2018-01-14 02:11] VITALS: BP 129/63; PULSE 93; RESP 16; TEMP 98; O2SAT 98
[2018-01-14] MEDS ORDERED: Oxycodone/Acetaminophen 5/325 mg Tab PO STA (02:16)
--- NOTE | 2018-01-14 02:51 | ED PDOC ---
HPI: Back Time Seen by Provider: 01/14/18 02:07 Chief Complaint (Nursing): Back Pain History Per: Patient, Family History/Exam Limitations: no limitations Onset/Duration Of Symptoms: Hrs Current Symptoms Are (Timing): Still Present Additional Complaint(s): Patient has chronic back pain secondary to nephrostomy tubes on opiates prescribed by pain management, according to son he ran out of percocet two days ago and does not have an appointment with pain management till next week. States this pain is normal for him but controllable with opiates. Denies trauma , no fevers, no abdominal pain, or any other unusual symptoms. Past Medical History Reviewed: Historical Data, Nursing Documentation, Vital Signs Vital Signs: Last Vital Signs Temp 98.0 F 01/14/18 02:08 Pulse 93 H 01/14/18 02:08 Resp 16 01/14/18 02:08 BP 129/63 01/14/18 02:08 Pulse Ox 98 01/14/18 02:08 - Medical History PMH: Anemia, Diabetes Denies: Chronic Kidney Disease - Surgical History Surgical History: Hernia Repair - Family History Family History: States: Unknown Family Hx - Home Medications Home Medications: Ambulatory Orders Medication Instructions Recorded Tamsulosin [Flomax] 0.4 mg PO HS 11/17/17 oxyCODONE/Acetaminophen [Percocet 1 tab PO Q6 PRN #15 tab 11/22/17 5/325 mg Tab] Amoxicillin/Clavulanate [Augmentin 1 tab PO Q12 #7 tab 12/23/17 875 MG-125 MG Tab] GlipiZIDE [Glucotrol] 10 mg PO ACB 30 Days #60 tab 12/23/17 traMADol [Ultram] 50 mg PO BID PRN #12 tab 01/14/18 - Allergies Allergies/Adverse Reactions: Allergies Allergy/AdvReac Type Severity Reaction Status Date / Time aspirin Allergy DIZZINESS Verified 11/18/17 06:50 Review of Systems ROS Statement: Except As Marked, All Systems Reviewed And Found Negative Musculoskeletal: Positive for: Back Pain Physical Exam - Reviewed Nursing Documentation Reviewed: Yes Vital Signs Reviewed: Yes - Physical Exam Appears: Positive for: Well, Non-toxic, Uncomfortable Head Exam: Positive for: ATRAUMATIC, NORMAL INSPECTION, NORMOCEPHALIC Skin: Positive for: Normal Color, Warm, DRY Eye Exam: Positive for: EOMI, Normal appearance, PERRL ENT: Positive for: Normal ENT Inspection Neck: Positive for: Normal, Painless ROM Cardiovascular/Chest: Positive for: Regular Rate, Rhythm Respiratory: Positive for: CNT, Normal Breath Sounds Gastrointestinal/Abdominal: Positive for: Normal Exam, Soft Back: Positive for: Normal Inspection, Other (nephrostomy tubes in place, clean , no erythema, no drainage). Negative for: Vertebral Tenderness, Decreased ROM , Muscle Spasm Extremity: Positive for: Normal ROM Neurologic/Psych: Positive for: Alert, liquor merchant II-XII, Oriented. Negative for: Motor/Sensory Deficits - ECG O2 Sat by Pulse Oximetry: 98 Pulse Ox Interpretation: Normal Medical Decision Making Medical Decision Making: Patient with back pain s/p nephrostomy tubes on opiates. Patient will be prescribed on percocet, will give tramadol for pain relief as outpatient for short-term. Patient understands seriousness of opiate pain management and to only use medication as absolutely necessary and not to abuse it. Disposition - Clinical Impression Clinical Impression: Back pain - Patient ED Disposition Is Patient to be Admitted: No - Disposition Referrals: Travon Mariscal Jr., MD [Primary Care Provider] - Disposition: Routine/Home Disposition Time: 02:56 Condition: IMPROVED Prescriptions: traMADol [Ultram] 50 mg PO BID PRN #12 tab PRN Reason: Pain, Severe (8-10) Instructions: Low Back Pain (DC)
== END 2018-01-14 03:28 | disposition home or self-care (01) ==
LOC: H.ER 01:53
DX: M54.5 Low back pain (principal)

== ENCOUNTER 2018-01-18 00:02 | Emergency (ER) | payer MEDICARE ==
[2018-01-18 00:29] VITALS: BMI 21.9
[2018-01-18 00:32] VITALS: BP 126/93; PULSE 92; RESP 18; TEMP 99.2; O2SAT 96
[2018-01-18] MEDS ORDERED: Morphine 4 MG/ML VIAL IV ONE (01:11)
--- NOTE | 2018-01-18 01:33 | ED PDOC ---
HPI: Male Pain Time Seen by Provider: 01/18/18 00:10 Chief Complaint (Nursing): Groin Pain Chief Complaint (Provider): l groin and leg pain History Per: Patient, Family (son) History/Exam Limitations: no limitations Onset/Duration Of Symptoms: Days (2) Current Symptoms Are (Timing): Still Present Severity: Moderate Quality Of Discomfort: Aching Associated Symptoms: Back Pain. denies: Fever, Chills, Nausea, Vomiting, Diarrhea, Loss Of Appetite, Chest Pain, Constipation, Urinary Symptoms Additional Complaint(s): 77 yo m with hist of DM urothelia bladder cancer complicated by obstructive uropathy sp TURBT and bilateral nephrostomy tubes by Dr Dewey, here with co left thigh pain and swelling, pt currently has shelton with leg bag. no falls or trauma. pts son said that pt has appt on this coming Wednesday with Dr Brewer, their oncologist to start treatment for the bladder cancer (it was only diagnosed in november of this year). pt denies fever/vomiting/abd or chest pain. . Past Medical History Vital Signs: Last Vital Signs Temp 99.2 F 01/18/18 00:29 Pulse 92 H 01/18/18 00:29 Resp 18 01/18/18 00:29 BP 126/93 H 01/18/18 00:29 Pulse Ox 96 01/18/18 00:29 - Medical History PMH: Anemia, Diabetes Denies: Chronic Kidney Disease - Surgical History Surgical History: Hernia Repair Other surgeries: turbt, sammie nephrostomy tubes - Family History Family History: States: Unknown Family Hx - Social History Ex-Smoker (has not smoked in the last 12 months): Yes Alcohol: None Drugs: Denies - Home Medications Home Medications: Ambulatory Orders Medication Instructions Recorded Tamsulosin [Flomax] 0.4 mg PO HS 11/17/17 oxyCODONE/Acetaminophen [Percocet 1 tab PO Q6 PRN #15 tab 11/22/17 5/325 mg Tab] Amoxicillin/Clavulanate [Augmentin 1 tab PO Q12 #7 tab 12/23/17 875 MG-125 MG Tab] GlipiZIDE [Glucotrol] 10 mg PO ACB 30 Days #60 tab 12/23/17 traMADol [Ultram] 50 mg PO BID PRN #12 tab 01/14/18 - Allergies Allergies/Adverse Reactions: Allergies Allergy/AdvReac Type Severity Reaction Status Date / Time aspirin Allergy DIZZINESS Verified 01/18/18 00:29 Physical Exam - Reviewed Nursing Documentation Reviewed: Yes Vital Signs Reviewed: Yes - Physical Exam Appears: Positive for: Well, Non-toxic, No Acute Distress Head Exam: Positive for: ATRAUMATIC, NORMAL INSPECTION, NORMOCEPHALIC Skin: Positive for: Normal Color, Warm, DRY Eye Exam: Positive for: EOMI, Normal appearance, PERRL Neck: Positive for: Normal, Painless ROM Cardiovascular/Chest: Positive for: Regular Rate, Rhythm Respiratory: Positive for: CNT, Normal Breath Sounds Gastrointestinal/Abdominal: Positive for: Normal Exam, Soft Back: Positive for: Normal Inspection, Other (two nephrostomy tubes draining into bags) Extremity: Positive for: Normal ROM, Other (l thigh mildly swollen) Neurologic/Psych: Positive for: Alert, Oriented - Laboratory Results Result Diagrams: 01/18/18 02:00 01/18/18 02:00 - ECG O2 Sat by Pulse Oximetry: 96 Medical Decision Making Medical Decision Making: left thigh pain given history of cancer will need to rule out DVT pt given pain medication 0301 CT Abdomen/Pelvis FINDINGS: LIMITATIONS: Mild to moderate streak/motion artifact. LUNG BASES: Stable appearance of a thick walled cavitary lesion with spiculated margins in the right lung base posteriorly, measuring 2.5 cm maximally. Emphysematous changes. MEDIASTINUM: Small hiatal hernia. ABDOMEN: LIVER: No acute abnormality of the liver identified. GALLBLADDER AND BILE DUCTS: No CT evidence of acute cholecystitis. No evidence of significant biliary ductal dilatation. PANCREAS: No CT evidence of acute pancreatitis. SPLEEN: No acute abnormality of the spleen identified. ADRENALS: No acute abnormality of the adrenal glands identified. KIDNEYS AND URETERS: Bilateral nephrostomies in place, a new finding. These do not appear to be malpositioned. Small amount of left perinephric fluid, overall decreased in amount compared to previous exam. Interval resolution of the previously seen hydroureteronephrosis, with no evidence of significant residual hydroureteronephrosis. No obstructing stones. STOMACH AND BOWEL: Retained stool noted throughout the right hemicolon, with no evidence of a significant large bowel obstruction or fecal impaction. Otherwise, no significant abnormality of the bowel is identified. No acute abnormality of the stomach or duodenum identified. No evidence of small bowel obstruction. PELVIS: APPENDIX: Normal appendix is not seen, however, there are no significant inflammatory changes visualized in the expected location of the appendix to suggest appendicitis. BLADDER: Stable appearance of diffuse bladder wall thickening. REPRODUCTIVE: Stable appearance of marked enlargement of the prostate gland. ABDOMEN and PELVIS: INTRAPERITONEAL SPACE: No evidence of free intraperitoneal air or fluid. RETROPERITONEAL SPACE: Stable appearance of a small amount of fluid in the pelvic retroperitoneal space, mostly located in the presacral region. No evidence of acute retroperitoneal hemorrhage. BONES/JOINTS: Again seen are findings highly suspicious for bony metastatic disease. There are multiple sclerotic bony lesions. Compared to the previous exam, this appears significantly worsened, with increase in the number and size of sclerotic bony lesions. No acute fractures are seen. SOFT TISSUES: No evidence of abdominal wall hernia containing bowel. VASCULATURE: No evidence of abdominal aortic aneurysm. No evidence of periaortic hemorrhage. LYMPH NODES: Grossly stable appearance of retroperitoneal lymphadenopathy, in the abdomen and pelvis, greatest in the left para-aortic region. 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 - Interval placement of bilateral percutaneous nephrostomies, with resolution of the previously seen hydronephrosis. - Otherwise, no significant interval change. - Persistent diffuse bladder wall thickening. - Stable small amount of diffuse fluid in the pelvic retroperitoneal space. - Stable appearance of retroperitoneal lymphadenopathy and a 2.5 cm cavitary lesion in the right lung base, highly suspicious for neoplasm, most likely metastatic disease. - See above for remaining findings. Dictated By: Lexus Peguero MD Dictated Date/Time: 01/18/18300 Signed By: Lexus Peguero MD Date Signed: 300 Transcribed By: SAILAJA Transcribe Date/Time : 01/18/18300 [facility] 0320 Lower Extremity US FINDINGS: Normal-appearing compressibility and flow are seen in the left common femoral, femoral, popliteal, and posterior tibial veins. IMPRESSION: No evidence of deep venous thrombosis in the left leg. Thank you for allowing us to participate in the care of your patient. Dictated and Authenticated by: Lexus Peguero MD 01/18/2018 3:18 AM Eastern Time ([place] & [place]) 0348 Labs and images are reviewed showing bladder cancer which likely met to the bones. discussed results with patient and son at bedside. pt to follow up with Dr Brewer on wednesday. pt comfotably sleeping in bed n no distress. pt to be picked up by his son who is on the way. Patient is stable for discharge. Scribe Attestation: Documented by Catherine Potts, acting as a scribe for Matilde Rutledge MD. Provider Scribe Attestation: All medical record entries made by the Scribe were at my direction and personally dictated by me. I have reviewed the chart and agree that the record accurately reflects my personal performance of the history, physical exam, medical decision making, and the department course for this patient. I have also personally directed, reviewed, and agree with the discharge instructions and disposition. Disposition - Clinical Impression Clinical Impression: Malignant neoplasm metastatic from bladder, Bladder cancer - Patient ED Disposition Is Patient to be Admitted: No Counseled Patient/Family Regarding: Studies Performed, Diagnosis, Need For Followup - Disposition Referrals: Travon Mariscal Jr., MD [Primary Care Provider] - Disposition: Routine/Home Disposition Time: 02:45 Condition: IMPROVED Additional Instructions: follow up with your urologist/oncologist in 1-2 days for further treatment return to the ED with any worsening or concerning symptoms Instructions: Bladder Cancer Forms: [employer] ([place]) Print Language: LATVIAN
[2018-01-18] MEDS ORDERED: Morphine 4 MG/ML VIAL ONE (01:54)
[2018-01-18 02:05] LABS: BASO # 0.1 K/uL (0.0-0.2); BASO % 0.8 % (0.0-2.0); EOS # 0.5 K/uL (0.0-0.7); EOS % 6.3 % (0.0-4.0); HEMOGLOBIN 9.7 g/dL (12.0-18.0); LYMPH # 1.1 K/uL (1.0-4.3); LYMPH % 13.3 % (20.0-40.0); MEAN CELL VOLUME 87.7 fl (80.0-94.0); MEAN CORPUSCULAR HEMOGLOBIN 29.4 pg (27.0-31.0); MEAN CORPUSCULAR HGB CONC 33.5 g/dL (33.0-37.0); MEAN PLATELET VOLUME 6.6 fl (7.2-11.7); MONO # 0.7 K/uL (0.0-0.8); MONO % 8.4 % (0.0-10.0); NEUT # 6.1 K/uL (1.8-7.0); NEUT % 71.2 % (50.0-75.0); RBC 3.31 Mil/uL (4.40-5.90); WHITE BLOOD COUNT 8.5 K/uL (4.8-10.8)
[2018-01-18 02:24] LABS: ALBUMIN 3.5 g/dL (3.5-5.0)
--- NOTE | 2018-01-18 03:02 | CT ---
EXAM: CT Abdomen and Pelvis Without Intravenous Contrast EXAM DATE/TIME: 01/18/2018 1:19 AM CLINICAL HISTORY: 77 years old, male; Pain; Abdominal pain; Localized; Lower; Prior surgery; Surgery date: 6+ months; Surgery type: Hernia repair. Nephrostomy cather; Additional info: Groin pain TECHNIQUE: Axial computed tomography images of the abdomen and pelvis without intravenous contrast. All CT scans at this facility use one or more dose reduction techniques, viz.: automated exposure control; ma/kV adjustment per patient size (including targeted exams where dose is matched to indication; i.e. head); or iterative reconstruction technique. COMPARISON: Prior CT abdomen and pelvis of 2017-11-17 FINDINGS: LIMITATIONS: Mild to moderate streak/motion artifact. LUNG BASES: Stable appearance of a thick walled cavitary lesion with spiculated margins in the right lung base posteriorly, measuring 2.5 cm maximally. Emphysematous changes. MEDIASTINUM: Small hiatal hernia. ABDOMEN: LIVER: No acute abnormality of the liver identified. GALLBLADDER AND BILE DUCTS: No CT evidence of acute cholecystitis. No evidence of significant biliary ductal dilatation. PANCREAS: No CT evidence of acute pancreatitis. SPLEEN: No acute abnormality of the spleen identified. ADRENALS: No acute abnormality of the adrenal glands identified. KIDNEYS AND URETERS: Bilateral nephrostomies in place, a new finding. These do not appear to be malpositioned. Small amount of left perinephric fluid, overall decreased in amount compared to previous exam. Interval resolution of the previously seen hydroureteronephrosis, with no evidence of significant residual hydroureteronephrosis. No obstructing stones. STOMACH AND BOWEL: Retained stool noted throughout the right hemicolon, with no evidence of a significant large bowel obstruction or fecal impaction. Otherwise, no significant abnormality of the bowel is identified. No acute abnormality of the stomach or duodenum identified. No evidence of small bowel obstruction. PELVIS: APPENDIX: Normal appendix is not seen, however, there are no significant inflammatory changes visualized in the expected location of the appendix to suggest appendicitis. BLADDER: Stable appearance of diffuse bladder wall thickening. REPRODUCTIVE: Stable appearance of marked enlargement of the prostate gland. ABDOMEN and PELVIS: INTRAPERITONEAL SPACE: No evidence of free intraperitoneal air or fluid. RETROPERITONEAL SPACE: Stable appearance of a small amount of fluid in the pelvic retroperitoneal space, mostly located in the presacral region. No evidence of acute retroperitoneal hemorrhage. BONES/JOINTS: Again seen are findings highly suspicious for bony metastatic disease. There are multiple sclerotic bony lesions. Compared to the previous exam, this appears significantly worsened, with increase in the number and size of sclerotic bony lesions. No acute fractures are seen. SOFT TISSUES: No evidence of abdominal wall hernia containing bowel. VASCULATURE: No evidence of abdominal aortic aneurysm. No evidence of periaortic hemorrhage. LYMPH NODES: Grossly stable appearance of retroperitoneal lymphadenopathy, in the abdomen and pelvis, greatest in the left para-aortic region. 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 - Interval placement of bilateral percutaneous nephrostomies, with resolution of the previously seen hydronephrosis. - Otherwise, no significant interval change. - Persistent diffuse bladder wall thickening. - Stable small amount of diffuse fluid in the pelvic retroperitoneal space. - Stable appearance of retroperitoneal lymphadenopathy and a 2.5 cm cavitary lesion in the right lung base, highly suspicious for neoplasm, most likely metastatic disease. - See above for remaining findings.
--- NOTE | 2018-01-18 11:42 | US ---
HISTORY: left leg pain and swelling . PRIORS: None. FINDINGS: 2-D, color and duplex Doppler analysis of the lower extremity venous circulation using routine protocol from the femoral veins through the popliteal veins. Venous compressibility: Normal. Flow and augmentation patterns: Normal. Visualized veins upper third of calf: Normal. [place] cyst: None. IMPRESSION: No sonographic or Doppler evidence for DVT in left lower extremity. PROCEDURE: Left lower extremity duplex venous sonography
== END 2018-01-18 05:15 | disposition home or self-care (01) ==
LOC: H.ER 00:02
DX: C67.9 Malignant neoplasm of bladder, unspecified (principal); E11.9 Type 2 diabetes mellitus without complications; Z79.84 Long term (current) use of oral hypoglycemic drugs
CPT/HCPCS: 74176; 80053; 85025; 93971; 96374; 99283; J2270

== ENCOUNTER 2018-02-12 10:22 | Inpatient (IN) | payer MEDICARE ==
[2018-02-12 10:22] VITALS: BMI 23.9
[2018-02-12] MEDS ORDERED: Oxycodone/Acetaminophen 5/325 mg Tab PO STA (10:44)
--- NOTE | 2018-02-12 11:05 | ED PDOC ---
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 He reports he had his second round of chemotherapy yesterday. Patient also experienced shortness of breath this morning but it has resolved. Patient missed his second dosage of percocets.He also reports chronic back pain to the area around the bilateral nephrostomy tubes and chronic bilateral leg swelling for two months that has been evaluated in the past. He denies fever, headache, visual changes, chest pain, shortness of breath at present, no palpitations, injury, or any other medical complaints. PMD: Dr. Gopal Brewer Past Medical History Vital Signs: Last Vital Signs Temp 98.6 F 02/12/18 10:36 Pulse 80 02/12/18 10:36 Resp 18 02/12/18 10:36 BP 109/42 L 02/12/18 10:36 Pulse Ox 99 02/12/18 12:06 - Medical History PMH: Anemia, Diabetes, Peripheral Edema (BLE) Other PMH: Bladder Cancer - Surgical History Surgical History: Hernia Repair - Family History Family History: States: Unknown Family Hx - Home Medications Home Medications: Ambulatory Orders Medication Instructions Recorded oxyCODONE/Acetaminophen [Percocet 1 tab PO Q6 PRN #15 tab 11/22/17 5/325 mg Tab] GlipiZIDE [Glucotrol] 10 mg PO ACB 30 Days #60 tab 12/23/17 - Allergies Allergies/Adverse Reactions: Allergies Allergy/AdvReac Type Severity Reaction Status Date / Time aspirin Allergy DIZZINESS Verified 01/18/18 00:29 codeine Allergy DIZZINESS Verified 02/01/18 08:37 Review of Systems ROS Statement: Except As Marked, All Systems Reviewed And Found Negative Constitutional: Negative for: Fever Eyes: Negative for: Vision Change Cardiovascular: Negative for: Chest Pain, Palpitations Respiratory: Negative for: Shortness of Breath (at present) Neurological: Positive for: Other (lightheadedness) Physical Exam - Reviewed Nursing Documentation Reviewed: Yes Vital Signs Reviewed: Yes - Physical Exam Appears: Positive for: Non-toxic, No Acute Distress Head Exam: Positive for: ATRAUMATIC, NORMOCEPHALIC Skin: Positive for: Normal Color, Warm, Dry Eye Exam: Positive for: Other (pale conjunctiva) Neck: Positive for: Normal, Painless ROM Cardiovascular/Chest: Positive for: Regular Rate, Rhythm Respiratory: Positive for: Normal Breath Sounds. Negative for: Respiratory Distress Pulses-Dorsalis Pedis (L): 3+/4+ Pulses-Dorsalis Pedis (R): 3+/4+ Gastrointestinal/Abdominal: Negative for: Tenderness Back: Positive for: Other (bilateral nephrostomy tubes in place) Extremity: Positive for: Pedal Edema (pitting BLE) Neurologic/Psych: Positive for: Alert, Oriented (x3) - Laboratory Results Result Diagrams: 02/12/18 11:35 02/12/18 11:35 - ECG O2 Sat by Pulse Oximetry: 99 (RA) Pulse Ox Interpretation: Normal Medical Decision Making Medical Decision Making: Time: 10:43 Initial Impression: s/p chemotherapy Initial Plan: --Type and screen --CT Head --EKG --CBC with differentials --PTT --Prothrombin --CXR --Percocet 5/325 mg Tab 1 tab PO --Orthostatic Blood Pressure --Glucose Blood Pt had Duplex ultrasound on 02/09: Accession No. 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 HISTORY: B/L LEG SWELLING, R/O DVT COMPARISON: None available. TECHNIQUE: Bilateral common femoral, superficial femoral, popliteal and posterior tibial veins were evaluated. Flow was assessed with color Doppler, compressibility, assessment of phasic flow and augmentation response. FINDINGS: COMMON FEMORAL VEIN: Right CFV: Unremarkable. Left CFV: Unremarkable. SUPERFICIAL FEMORAL VEIN: Right SFV: Unremarkable. Left SFV: Unremarkable. POPLITEAL VEIN: Right Popliteal: Unremarkable. Left Popliteal: Unremarkable. POSTERIOR TIBIAL VEIN: Right PTV: Unremarkable. Left PTV: Unremarkable. OTHER FINDINGS: None. IMPRESSION: No evidence of deep venous thrombosis. Scribe Attestation: Documented by Radha Mcdermott, acting as a scribe for Sosa Ruiz MD Provider Scribe Attestation: All medical record entries made by the Scribe were at my direction and personally dictated by me. I have reviewed the chart and agree that the record accurately reflects my personal performance of the history, physical exam, medical decision making, and the department course for this patient. I have also personally directed, reviewed, and agree with the discharge instructions and disposition. Disposition - Disposition Forms: [email or web address] (Cuban)
--- NOTE | 2018-02-12 11:40 | CT ---
PROCEDURE: CT HEAD WITHOUT CONTRAST. HISTORY: Dizziness COMPARISON: None available. TECHNIQUE: Axial computed tomography images were obtained through the head/brain without intravenous contrast. Radiation dose: Total exam DLP = 843.95 mGy-cm. This CT exam was performed using one or more of the following dose reduction techniques: Automated exposure control, adjustment of the mA and/or kV according to patient size, and/or use of iterative reconstruction technique. FINDINGS: HEMORRHAGE: No intracranial hemorrhage. BRAIN: No mass effect or edema. Mild atrophy and mild chronic microvascular white matter ischemic disease are noted. VENTRICLES: Unremarkable. No hydrocephalus. CALVARIUM: Unremarkable. PARANASAL SINUSES: Unremarkable as visualized. No significant inflammatory changes. MASTOID AIR CELLS: Unremarkable as visualized. No inflammatory changes. OTHER FINDINGS: None. IMPRESSION: No evidence of acute intracranial hemorrhage intracranial collection mass effect or midline shift. Mild atrophy and mild chronic microvascular white matter ischemic disease.
[2018-02-12 11:43] LABS: BASO % 0.6 % (0.0-2.0); EOS % 1.1 % (0.0-4.0); HEMOGLOBIN 7.8 g/dL (12.0-18.0); LYMPH # 0.6 K/uL (1.0-4.3); LYMPH % 18.3 % (20.0-40.0); MEAN CELL VOLUME 88.3 fl (80.0-94.0); MEAN CORPUSCULAR HEMOGLOBIN 29.4 pg (27.0-31.0); MEAN CORPUSCULAR HGB CONC 33.3 g/dL (33.0-37.0); MEAN PLATELET VOLUME 6.4 fl (7.2-11.7); MONO # 0.2 K/uL (0.0-0.8); NEUT # 2.5 K/uL (1.8-7.0); NRBC % 0.1 % (0.0-0.0); RBC 2.64 Mil/uL (4.40-5.90); RED CELL DISTRIBUTION WIDTH 14.8 % (11.5-14.5); WHITE BLOOD COUNT 3.4 K/uL (4.8-10.8)
[2018-02-12] MEDS ORDERED: Oxycodone/Acetaminophen 5/325 mg Tab ONE (11:55)
[2018-02-12 11:56] LABS: ALBUMIN 3.6 g/dL (3.5-5.0); ALT/SGPT 70 U/L (21-72); AST/SGOT 50 U/L (17-59); BLOOD UREA NITROGEN 29 mg/dl (9-20); CALCIUM 8.3 mg/dL (8.4-10.2); GFR AFRICAN-AMERICAN > 60; GFR NON-AFRICAN AMERICAN 58; INR 1.1 (0.9-1.2); PARTIAL THROMBOPLASTIN TIME 26.4 Seconds (25.6-37.1); PROTHROMBIN TIME 11.7 Seconds (9.8-13.1)
[2018-02-12 12:25] LABS: URINE AMORPHOUS SEDIMENT RARE /ul (<OCC); URINE BACTERIA FEW (<OCC); URINE BILIRUBIN NEGATIVE (NEGATIVE); URINE BLOOD SMALL (NEGATIVE); URINE CLARITY TURBID (Clear); URINE COLOR YELLOW (YELLOW); URINE GLUCOSE (UA) NEG (Normal); URINE LEUKOCYTE ESTERASE LARGE Leu/uL (Negative); URINE PROTEIN 100 mg/dL (NEGATIVE); URINE UROBILINOGEN 0.2-1.0 mg/dL (0.2-1.0)
[2018-02-12] MEDS ORDERED: cefTRIAXone (Rocephin) 1 gm Inj ONE (13:50)
[2018-02-12 14:35] VITALS: RESP 20
--- NOTE | 2018-02-12 16:48 | RAD ---
HISTORY: SOB COMPARISON: Comparison is made with 12/02/2017 FINDINGS: LUNGS: Small bile basilar atelectasis noted bilaterally. Otherwise no significant interval change in the lungs since the previous exam. PLEURA: No significant pleural effusion identified, no pneumothorax apparent. CARDIOVASCULAR: The heart is normal in size. OSSEOUS STRUCTURES: No significant abnormalities. VISUALIZED UPPER ABDOMEN: Normal. OTHER FINDINGS: Interval insertion of [id number] in the right chest since the previous study. IMPRESSION: Small bibasilar atelectasis. Otherwise no significant interval change.
--- NOTE | 2018-02-12 17:34 | CP.PCM.CON ---
Past Patient History - Infectious Disease Hx of Infectious Diseases: None - Past Medical History & Family History Past Medical History?: Yes - Past Social History Smoking Status: Former Smoker - CARDIAC Hx Cardiac Disorders: Yes - PULMONARY Hx Respiratory Disorders: No - NEUROLOGICAL Hx Neurological Disorder: No - HEENT Hx HEENT Problems: No - RENAL Hx Chronic Kidney Disease: No - ENDOCRINE/METABOLIC Hx Endocrine Disorders: Yes Hx Diabetes Mellitus Type 2: Yes - HEMATOLOGICAL/ONCOLOGICAL Hx Blood Disorders: No Hx Anemia: Yes - INTEGUMENTARY Hx Dermatological Problems: No - MUSCULOSKELETAL/RHEUMATOLOGICAL Hx Musculoskeletal Disorders: No Hx Falls: No - GASTROINTESTINAL Hx Gastrointestinal Disorders: No - GENITOURINARY/GYNECOLOGICAL Hx Genitourinary Disorders: Yes Hx Bladder Cancer: Yes Hx Prostate Problems: Yes - PSYCHIATRIC Hx Psychophysiologic Disorder: Yes Hx Depression: Yes - SURGICAL HISTORY Hx Surgeries: Yes Hx Herniorrhaphy: Yes (> 20 YRS AGO) Other/Comment: Hx TURBT with 07/2017. Hx cystoscopy - Transurethral resection of bladder tumor 12/06/17. Hx Bilateral Nephrostomy tube placement 08/30 - ANESTHESIA Hx Anesthesia: Yes Hx Anesthesia Reactions: No Hx Malignant Hyperthermia: No Meds Allergies/Adverse Reactions: Allergies Allergy/AdvReac Type Severity Reaction Status Date / Time aspirin Allergy DIZZINESS Verified 01/18/18 00:29 codeine Allergy DIZZINESS Verified 02/01/18 08:37 Results - Vital Signs Recent Vital Signs: Last Vital Signs Temp 98 F 02/12/18 16:25 Pulse 79 02/12/18 16:25 Resp 20 02/12/18 16:25 BP 100/53 L 02/12/18 16:25 Pulse Ox 100 02/12/18 16:25 - Labs Result Diagrams: 02/12/18 11:35 02/12/18 11:35 Labs: Laboratory Results - last 24 hr 02/12/18 02/12/18 02/12/18 11:02 11:35 11:35 WBC 3.4 L D RBC 2.64 L Hgb 7.8 L Hct 23.3 L MCV 88.3 MCH 29.4 MCHC 33.3 RDW 14.8 H Plt Count 148 D MPV 6.4 L Neut % (Auto) 75.0 Lymph % (Auto) 18.3 L [place] % (Auto) 5.0 Eos % (Auto) 1.1 Baso % (Auto) 0.6 Neut # (Auto) 2.5 Lymph # (Auto) 0.6 L [place] # (Auto) 0.2 Eos # (Auto) 0.0 Baso # (Auto) 0.0 PT INR APTT Sodium 138 Potassium 5.0 Chloride 104 Carbon Dioxide 22 Anion Gap 17 BUN 29 H Creatinine 1.2 Est GFR ( Amer) > 60 Est GFR (Non-Af Amer) 58 POC Glucose (mg/dL) 110 Random Glucose 71 L Calcium 8.3 L Total Bilirubin 0.4 AST 50 ALT 70 Alkaline Phosphatase 1050 H Troponin I 0.0220 Total Protein 7.2 Albumin 3.6 Globulin 3.6 Albumin/Globulin Ratio 1.0 Urine Color Urine Clarity Urine pH Ur Specific [place] Urine Protein Urine Glucose (UA) Urine Ketones Urine Blood Urine Nitrate Urine Bilirubin Urine Urobilinogen Ur Leukocyte Esterase Urine RBC (Auto) Urine Microscopic WBC Amorphous Sediment Urine Bacteria Blood Type Antibody Screen Crossmatch BBK History Checked 02/12/18 02/12/18 02/12/18 11:35 11:35 11:57 WBC RBC Hgb Hct MCV MCH MCHC RDW Plt Count MPV Neut % (Auto) Lymph % (Auto) [place] % (Auto) Eos % (Auto) Baso % (Auto) Neut # (Auto) Lymph # (Auto) [place] # (Auto) Eos # (Auto) Baso # (Auto) PT 11.7 INR 1.1 APTT 26.4 Sodium Potassium Chloride Carbon Dioxide Anion Gap BUN Creatinine Est GFR ( Amer) Est GFR (Non-Af Amer) POC Glucose (mg/dL) Random Glucose Calcium Total Bilirubin AST ALT Alkaline Phosphatase Troponin I Total Protein Albumin Globulin Albumin/Globulin Ratio Urine Color Yellow Urine Clarity Turbid Urine pH 6.0 Ur Specific [place] 1.016 Urine Protein 100 Urine Glucose (UA) Neg Urine Ketones Negative Urine Blood Small Urine Nitrate Positive H Urine Bilirubin Negative Urine Urobilinogen 0.2-1.0 Ur Leukocyte Esterase Large Urine RBC (Auto) 20 H Urine Microscopic WBC 295 H Amorphous Sediment Rare H Urine Bacteria Few H Blood Type B POSITIVE Antibody Screen Negative Crossmatch See Detail BBK History Checked No verified bt 02/12/18 16:18 WBC RBC Hgb Hct MCV MCH MCHC RDW Plt Count MPV Neut % (Auto) Lymph % (Auto) [place] % (Auto) Eos % (Auto) Baso % (Auto) Neut # (Auto) Lymph # (Auto) [place] # (Auto) Eos # (Auto) Baso # (Auto) PT INR APTT Sodium Potassium Chloride Carbon Dioxide Anion Gap BUN Creatinine Est GFR ( Amer) Est GFR (Non-Af Amer) POC Glucose (mg/dL) 124 H Random Glucose Calcium Total Bilirubin AST ALT Alkaline Phosphatase Troponin I Total Protein Albumin Globulin Albumin/Globulin Ratio Urine Color Urine Clarity Urine pH Ur Specific [place] Urine Protein Urine Glucose (UA) Urine Ketones Urine Blood Urine Nitrate Urine Bilirubin Urine Urobilinogen Ur Leukocyte Esterase Urine RBC (Auto) Urine Microscopic WBC Amorphous Sediment Urine Bacteria Blood Type Antibody Screen Crossmatch BBK History Checked
[2018-02-12] MEDS ORDERED: Oxycodone/Acetaminophen 5/325 mg Tab PO PRN (18:50)
[2018-02-12] MEDS: Insulin Regular 100 units/ml SC SCH (22:37)
[2018-02-13] MEDS ORDERED: HYDROmorphone 0.5 mg/0.5 ml ISec IVP ONE (05:30)
[2018-02-13 07:23] LABS: ALB/GLOB RATIO 0.9 (1.0-2.1); ALBUMIN 3.1 g/dL (3.5-5.0); ALT/SGPT 73 U/L (21-72); AST/SGOT 63 U/L (17-59); BLOOD UREA NITROGEN 28 mg/dl (9-20); CALCIUM 8.4 mg/dL (8.4-10.2); GFR AFRICAN-AMERICAN > 60; GFR NON-AFRICAN AMERICAN 53
[2018-02-13] MEDS: Insulin Regular 100 units/ml SC SCH ×3 (07:30→16:43)
[2018-02-13 08:10] LABS: HEMOGLOBIN 9.2 g/dL (12.0-18.0); MEAN CELL VOLUME 87.3 fl (80.0-94.0); MEAN CORPUSCULAR HEMOGLOBIN 29.8 pg (27.0-31.0); MEAN CORPUSCULAR HGB CONC 34.2 g/dL (33.0-37.0); RBC 3.08 Mil/uL (4.40-5.90); RED CELL DISTRIBUTION WIDTH 14.4 % (11.5-14.5); WHITE BLOOD COUNT 2.9 K/uL (4.8-10.8)
[2018-02-13] MEDS ORDERED: HYDROmorphone 0.5 mg/0.5 ml ISec IVP PRN (11:08)
[2018-02-13] MEDS ORDERED: Oxycodone/Acetaminophen 5/325 mg Tab PO PRN (11:19)
--- NOTE | 2018-02-13 12:04 | CP.PCM.HP ---
History of Present Illness - History of Present Illness History of Present Illness: This is a 77 y/o male admitted for acute exacerbation of chronic back pain and UTI. Past Patient History - Infectious Disease Hx of Infectious Diseases: None - Past Medical History & Family History Past Medical History?: Yes - Past Social History Smoking Status: Former Smoker - CARDIAC Hx Cardiac Disorders: Yes - PULMONARY Hx Respiratory Disorders: No - NEUROLOGICAL Hx Neurological Disorder: No - HEENT Hx HEENT Problems: No - RENAL Hx Chronic Kidney Disease: No - ENDOCRINE/METABOLIC Hx Endocrine Disorders: Yes Hx Diabetes Mellitus Type 2: Yes - HEMATOLOGICAL/ONCOLOGICAL Hx Blood Disorders: No Hx Anemia: Yes - INTEGUMENTARY Hx Dermatological Problems: No - MUSCULOSKELETAL/RHEUMATOLOGICAL Hx Musculoskeletal Disorders: No Hx Falls: No - GASTROINTESTINAL Hx Gastrointestinal Disorders: No - GENITOURINARY/GYNECOLOGICAL Hx Genitourinary Disorders: Yes Hx Bladder Cancer: Yes Hx Prostate Problems: Yes - PSYCHIATRIC Hx Psychophysiologic Disorder: Yes Hx Depression: Yes - SURGICAL HISTORY Hx Surgeries: Yes Hx Herniorrhaphy: Yes (> 20 YRS AGO) Other/Comment: Hx TURBT with 07/2017. Hx cystoscopy - Transurethral resection of bladder tumor 12/06/17. Hx Bilateral Nephrostomy tube placement 08/30 - ANESTHESIA Hx Anesthesia: Yes Hx Anesthesia Reactions: No Hx Malignant Hyperthermia: No Meds Allergies/Adverse Reactions: Allergies Allergy/AdvReac Type Severity Reaction Status Date / Time aspirin Allergy DIZZINESS Verified 01/18/18 00:29 codeine Allergy DIZZINESS Verified 02/01/18 08:37 Results - Vital Signs Recent Vital Signs: Last Vital Signs Temp 97.9 F 02/13/18 08:41 Pulse 78 02/13/18 08:41 Resp 20 02/13/18 08:41 BP 121/50 L 02/13/18 08:41 Pulse Ox 100 02/13/18 08:41 - Labs Result Diagrams: 02/13/18 05:30 02/13/18 05:30 Labs: Laboratory Results - last 24 hr 02/12/18 02/12/18 02/12/18 11:02 11:35 11:35 WBC RBC Hgb Hct MCV MCH MCHC RDW Plt Count Sodium Potassium Chloride Carbon Dioxide Anion Gap BUN Creatinine Est GFR ( Amer) Est GFR (Non-Af Amer) POC Glucose (mg/dL) 110 Random Glucose Calcium Total Bilirubin AST ALT Alkaline Phosphatase Troponin I 0.0220 Total Protein Albumin Globulin Albumin/Globulin Ratio Urine Color Urine Clarity Urine pH Ur Specific [place] Urine Protein Urine Glucose (UA) Urine Ketones Urine Blood Urine Nitrate Urine Bilirubin Urine Urobilinogen Ur Leukocyte Esterase Urine RBC (Auto) Urine Microscopic WBC Amorphous Sediment Urine Bacteria Blood Type B POSITIVE Blood Type Confirm Antibody Screen Negative Crossmatch See Detail BBK History Checked No verified bt 02/12/18 02/12/18 02/12/18 11:57 16:18 22:24 WBC RBC Hgb Hct MCV MCH MCHC RDW Plt Count Sodium Potassium Chloride Carbon Dioxide Anion Gap BUN Creatinine Est GFR ( Amer) Est GFR (Non-Af Amer) POC Glucose (mg/dL) 124 H 106 Random Glucose Calcium Total Bilirubin AST ALT Alkaline Phosphatase Troponin I Total Protein Albumin Globulin Albumin/Globulin Ratio Urine Color Yellow Urine Clarity Turbid Urine pH 6.0 Ur Specific [place] 1.016 Urine Protein 100 Urine Glucose (UA) Neg Urine Ketones Negative Urine Blood Small Urine Nitrate Positive H Urine Bilirubin Negative Urine Urobilinogen 0.2-1.0 Ur Leukocyte Esterase Large Urine RBC (Auto) 20 H Urine Microscopic WBC 295 H Amorphous Sediment Rare H Urine Bacteria Few H Blood Type Blood Type Confirm Antibody Screen Crossmatch BBK History Checked 02/12/18 02/13/18 02/13/18 23:35 05:30 05:30 WBC 2.9 L RBC 3.08 L Hgb 9.2 L Hct 26.9 L MCV 87.3 MCH 29.8 MCHC 34.2 RDW 14.4 Plt Count 142 Sodium 139 Potassium 5.1 H Chloride 105 Carbon Dioxide 24 Anion Gap 15 BUN 28 H Creatinine 1.3 Est GFR ( Amer) > 60 Est GFR (Non-Af Amer) 53 POC Glucose (mg/dL) Random Glucose 101 Calcium 8.4 Total Bilirubin 1.1 AST 63 H D ALT 73 H Alkaline Phosphatase 937 H Troponin I Total Protein 6.4 Albumin 3.1 L Globulin 3.3 Albumin/Globulin Ratio 0.9 L Urine Color Urine Clarity Urine pH Ur Specific [place] Urine Protein Urine Glucose (UA) Urine Ketones Urine Blood Urine Nitrate Urine Bilirubin Urine Urobilinogen Ur Leukocyte Esterase Urine RBC (Auto) Urine Microscopic WBC Amorphous Sediment Urine Bacteria Blood Type Blood Type Confirm B POSITIVE Antibody Screen Crossmatch BBK History Checked 02/13/18 02/13/18 05:42 11:07 WBC RBC Hgb Hct MCV MCH MCHC RDW Plt Count Sodium Potassium Chloride Carbon Dioxide Anion Gap BUN Creatinine Est GFR ( Amer) Est GFR (Non-Af Amer) POC Glucose (mg/dL) 103 86 Random Glucose Calcium Total Bilirubin AST ALT Alkaline Phosphatase Troponin I Total Protein Albumin Globulin Albumin/Globulin Ratio Urine Color Urine Clarity Urine pH Ur Specific [place] Urine Protein Urine Glucose (UA) Urine Ketones Urine Blood Urine Nitrate Urine Bilirubin Urine Urobilinogen Ur Leukocyte Esterase Urine RBC (Auto) Urine Microscopic WBC Amorphous Sediment Urine Bacteria Blood Type Blood Type Confirm Antibody Screen Crossmatch BBK History Checked
--- NOTE | 2018-02-13 12:06 | CP.PCM.PN ---
Subjective - Date & Time of Evaluation Date of Evaluation: 02/13/18 Time of Evaluation: 12:05 - Subjective Subjective: Patient continues to have lower back pain. Has no fever. Objective - Vital Signs/Intake and Output Vital Signs (last 24 hours): Temp Pulse Resp BP Pulse Ox 97.9 F 78 20 121/50 L 100 02/13/18 08:41 02/13/18 08:41 02/13/18 08:41 02/13/18 08:41 02/13/18 08:41 - Medications Medications: Current Medications Glipizide (Glucotrol) 10 mg PO ACB [facility] Last Admin: 02/13/18 08:23 Dose: 10 mg Hydromorphone HCl (Dilaudid) 0.5 mg IVP Q4 PRN PRN Reason: Pain, severe (8-10) Ceftriaxone Sodium 1 gm/ (Sodium Chloride) 100 mls @ 100 mls/hr IVPB DAILY [facility] PRN Reason: Protocol Last Admin: 02/13/18 08:24 Dose: 100 mls/hr Insulin Human Regular (Humulin R) 0 units SC ACHS [facility] PRN Reason: Protocol Last Admin: 02/13/18 07:30 Dose: Not Given Lidocaine (Lidoderm) 1 ea TD DAILY [facility] Oxycodone/Acetaminophen (Percocet 5/325 Mg Tab) 2 tab PO Q6 PRN PRN Reason: Pain, moderate (4-7) Stop: 02/15/18 18:51 Tamsulosin HCl (Flomax) 0.4 mg PO HS [facility] Last Admin: 02/12/18 21:29 Dose: 0.4 mg - Labs Labs: 02/13/18 05:30 02/13/18 05:30 PT 11.7 Seconds (9.8-13.1) 02/12/18 11:35 INR 1.1 (0.9-1.2) 02/12/18 11:35 APTT 26.4 Seconds (25.6-37.1) 02/12/18 11:35
[2018-02-13] MEDS ORDERED: Lidocaine 5% Patch TD SCH (13:00)
--- NOTE | 2018-02-13 13:56 | RAD ---
PROCEDURE: Radiographs of the Lumbar Spine. HISTORY: back pain elevated alp COMPARISON: Comparison is made with the previous CT of the abdomen dated 01/18/2023 FINDINGS: BONES: Patchy sclerotic changes noted in the osseous structures. The possibility of osseous metastasis should be considered. Advanced degenerative changes are noted. There is mild grade 1 anterior spondylolisthesis of L4 relative to L5. Anterior and posterior osteophyte formation are seen. DISC SPACES: Multilevel narrowing of the intervertebral disc spaces more prominent at L4-L5 and L5-S1 OTHER FINDINGS: None. 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 Advanced degenerative changes at the lower lumbar spine. Grade 1 anterior spondylolisthesis of L4 relative to L5 1
[2018-02-13 16:09] VITALS: BP 142/65; PULSE 81; TEMP 98.2; O2SAT 97
--- NOTE | 2018-02-14 14:39 | CARD ---
APPROVED REPORT EKG Measurement Heart [id number] <Conclusion> Normal sinus rhythm Incomplete right bundle branch block Borderline ECG
== END 2018-02-13 19:30 | disposition left against medical advice (07) | DRG 552 ==
LOC: H.ER 10:22 → H.ERHOLD 13:23 → H.MEDSURG1 14:19
PROVIDERS: ADMIT Family Medicine; ATTEND Family Medicine
DX: M54.5 Low back pain (principal); N39.0 Urinary tract infection, site not specified; G89.29 Other chronic pain; E11.9 Type 2 diabetes mellitus without complications; Z85.51 Personal history of malignant neoplasm of bladder; Z87.891 Personal history of nicotine dependence; D64.9 Anemia, unspecified; F32.9 Major depressive disorder, single episode, unspecified; F45.9 Somatoform disorder, unspecified

== ENCOUNTER 2018-02-28 16:50 | Emergency (ER) | payer MEDICARE ==
[2018-02-28 16:51] VITALS: BMI 23.9
[2018-02-28 17:16] VITALS: BP 121/54; PULSE 79; RESP 16; TEMP 98; O2SAT 98
--- NOTE | 2018-02-28 18:51 | ED PDOC ---
HPI: General Adult Time Seen by Provider: 02/28/18 17:27 Chief Complaint (Nursing): Medical Clearance Chief Complaint (Provider): Catheter care History Per: Patient History/Exam Limitations: no limitations Additional Complaint(s): 77 y/o male with a PMHx of bladder cancer and diabetes presenting for catheter care. Patient states he was sent to [facility] by Dr. Dewey to have his leg bags changed. Patient reports that he was recently diagnosed with bladder cancer and he had a surgical procedure to insert a shelton catheter to redirect urine out of his back into the bags as the neoplasm is obstructing his bladder. Patient has no complaints at this time. He states the he was directed to go to the 3rd floor , however he was denied by security, thus prompting him to present to the ER for evaluation. Patient states his urologist did not have the necessary bags in stock in his office to change them during his visit earlier today. PMD: Dr. Mariscal Past Medical History Reviewed: Historical Data, Nursing Documentation, Vital Signs Vital Signs: Last Vital Signs Temp 98.0 F 02/28/18 17:14 Pulse 79 02/28/18 17:14 Resp 16 02/28/18 17:14 BP 121/54 L 02/28/18 17:14 Pulse Ox 98 02/28/18 18:54 - Medical History PMH: Anemia, Depression, Diabetes, Peripheral Edema (BLE) Other PMH: Bladder cancer - Surgical History Surgical History: Hernia Repair Other surgeries: Shelton catheter through back - Family History Family History: States: Unknown Family Hx - Home Medications Home Medications: Ambulatory Orders Medication Instructions Recorded GlipiZIDE [Glucotrol] 10 mg PO ACB 30 Days #60 tab 12/23/17 Oxycodone HCl/Acetaminophen 1 tab PO Q6H 02/12/18 [Percocet 10-325 mg Tablet] Tamsulosin [Flomax] 0.4 mg PO HS 02/12/18 - Allergies Allergies/Adverse Reactions: Allergies Allergy/AdvReac Type Severity Reaction Status Date / Time aspirin Allergy DIZZINESS Verified 01/18/18 00:29 Review of Systems ROS Statement: Except As Marked, All Systems Reviewed And Found Negative Physical Exam - Reviewed Nursing Documentation Reviewed: Yes Vital Signs Reviewed: Yes - Physical Exam Comments: GENERAL APPEARANCE: Patient is awake, alert, oriented x 3, resting comfortably, in no acute distress. SKIN: Warm, dry; (-) cyanosis ENMT: Mucous membranes moist. Airway patent: (-) stridor. NECK: Supple, FROM CHEST AND RESPIRATORY: (-) rales, (-) rhonchi, (-) wheezes; breath sounds equal. ABDOMEN: Soft, (-) distention, (-) tenderness, (-) guarding EXTREMITIES: (+) bilateral leg bags in place, (-) deformity. NEURO AND PSYCH: Mental status as above. - ECG O2 Sat by Pulse Oximetry: 98 (RA) Pulse Ox Interpretation: Normal Medical Decision Making Medical Decision Makin:32 Impression: Catheter care Plan: Case discussed with Dr. Dewey, urologist, who states patient was supposed to go up to radiology department to have bag changed. He suggested contacting central supply as the urine bags in the ER are not compatible with the patient s catheter. 18:44 Upon provider reevaluation, patient was found to have left ER with son prior to treatment being complete. Scribe Attestation: Documented by Hussein Sharif, acting as a scribe for Tena Vasquez PA-C. Provider Scribe Attestation: All medical record entries made by the scribe were at my direction and personally dictated by me. I have reviewed the chart and agree that the record accurately reflects my personal performance of the history, physical exam, medical decision making, and the department course for this patient. I have also personally directed, reviewed, and agree with the discharge instructions and disposition. Disposition - Clinical Impression Clinical Impression: Encounter for evaluation of Shelton catheter - Patient ED Disposition Is Patient to be Admitted: No - Disposition Disposition: Left W/O Treatment Disposition Time: 18:44 Condition: UNKNOWN Forms: [employer] (Belarusian)
== END 2018-02-28 18:30 | disposition left against medical advice (07) ==
LOC: H.ER 16:50
DX: Z46.6 Encounter for fitting and adjustment of urinary device (principal)

== ENCOUNTER 2018-03-25 10:23 | Inpatient (IN) | payer MEDICARE ==
[2018-03-25 10:28] VITALS: BMI 22.8
--- NOTE | 2018-03-25 11:28 | ED PDOC ---
HPI: Back History Per: Patient History/Exam Limitations: no limitations Onset/Duration Of Symptoms: Days Severity: Moderate Additional Complaint(s): CC: I have pain HPI: 78 YO Male with PMHx of DM, bladder cancer, nephrostomy tube presents was brought to [facility] ED by EMS for low back pain. Pt is very agitated, adamantly asking to see his son Ry. Endorsing low back pain. Son present by bedside , states that pt endorsing pain around nephrostomy x past few days. Home nurse came by today and noted discharge around tube sites. Denies fever, chest pain, palpitations, and dyspnea. Endorsing feeling cold in the room. Pt is not focused , seems altered at times. PMD: Dr. Mariscal PMHx: DM, bladder CA, low back pain (per chart review) SurgHx: nephrostomy tube b/l, hernia repair Allergies: asa <Erica Fernandez - Last Filed: 03/25/18 12:53> Additional Complaint(s): Back pain b/l at site of nephrostomy tube for few days. Altered mental status off and on per son for a few days. Got chemo Wednesday for bladder ca. <Joby Bhatt M - Last Filed: 03/25/18 17:35> Time Seen by Provider: 03/25/18 11:13 Chief Complaint (Nursing): Back Pain Past Medical History Vital Signs: Last Vital Signs Temp 98.6 F 03/25/18 10:28 Pulse 91 H 03/25/18 10:28 Resp 16 03/25/18 10:28 BP 108/60 03/25/18 10:28 Pulse Ox 100 03/25/18 10:28 - Medical History PMH: Anemia, Depression, Diabetes, Peripheral Edema (BLE) Denies: Chronic Kidney Disease - Surgical History Surgical History: Hernia Repair - Family History Family History: States: Unknown Family Hx - Social History Alcohol: None Drugs: Denies <Erica Fernandez - Last Filed: 03/25/18 12:53> Reviewed: Nursing Documentation, Vital Signs Vital Signs: Last Vital Signs Temp 98 F 03/25/18 12:37 Pulse 88 03/25/18 13:54 Resp 19 03/25/18 13:54 BP 122/54 L 03/25/18 13:54 Pulse Ox 98 03/25/18 13:54 - Medical History Other PMH: bladder ca - Surgical History Other surgeries: nephrectomy tubes b/l <Joby Bhatt Denice - Last Filed: 03/25/18 17:35> - Home Medications Home Medications: Ambulatory Orders Medication Instructions Recorded Tamsulosin [Flomax] 0.4 mg PO HS 02/12/18 GlipiZIDE [Glucotrol] 10 mg PO BID 03/25/18 oxyCODONE [oxyCODONE Immediate 15 mg PO Q4 PRN 03/25/18 Release Tab] - Allergies Allergies/Adverse Reactions: Allergies Allergy/AdvReac Type Severity Reaction Status Date / Time aspirin Allergy DIZZINESS Verified 03/23/18 07:50 Review of Systems Constitutional: Positive for: Chills. Negative for: Fever, Weight loss Cardiovascular: Negative for: Chest Pain, Palpitations Respiratory: Negative for: Cough, Shortness of Breath Gastrointestinal: Negative for: Nausea, Vomiting, Abdominal Pain, Diarrhea, Constipation Skin: Negative for: Rash Neurological: Negative for: Weakness, Numbness <Erica Fernandez - Last Filed: 03/25/18 12:53> ROS Statement: Except As Marked, All Systems Reviewed And Found Negative Musculoskeletal: Positive for: Back Pain <Joby Bhatt M - Last Filed: 03/25/18 17:35> Physical Exam - Physical Exam Appears: Positive for: In Acute Distress (agitated ) Skin: Positive for: Normal Color Eye Exam: Positive for: Normal appearance, EOMI Neck: Positive for: Normal Cardiovascular/Chest: Positive for: Regular Rate, Rhythm. Negative for: Murmur Respiratory: Positive for: Normal Breath Sounds. Negative for: Crackles, Wheezing Gastrointestinal/Abdominal: Positive for: Normal Exam, Bowel Sounds, Soft. Negative for: Tenderness Back: Positive for: Other (Nephrostony tubes in place b/l. Draining clear urine. White discharge noted from tubes b/l, mild erythema around site. ) Extremity: Positive for: Normal ROM, Pedal Edema (up to the mid [place]) Neurologic/Psych: Positive for: Alert, Other (agitated and altered ) <Erica Fernandez - Last Filed: 03/25/18 12:53> - Reviewed Nursing Documentation Reviewed: Yes Vital Signs Reviewed: Yes - Physical Exam Appears: Positive for: Non-toxic, No Acute Distress Head Exam: Positive for: ATRAUMATIC, NORMAL INSPECTION, NORMOCEPHALIC Skin: Positive for: Normal Color, Warm, DRY Eye Exam: Positive for: EOMI, Normal appearance, PERRL ENT: Positive for: Normal ENT Inspection Neck: Positive for: Normal, Painless ROM Cardiovascular/Chest: Positive for: Regular Rate, Rhythm Respiratory: Positive for: CNT, Normal Breath Sounds Gastrointestinal/Abdominal: Positive for: Normal Exam, Soft. Negative for: Tenderness Back: Positive for: Other (Nephrostony tubes in place b/l. Draining clear urine. Tender mild in that area b/l. [place] discharge noted around tubes b/l; no erythema around site. ) Extremity: Positive for: Normal ROM, Pedal Edema (up to the mid [place]; no pitting ; in venous stasis pattern) Neurologic/Psych: Positive for: Alert, Oriented, Other (agitated) <Joby Bhatt M - Last Filed: 03/25/18 17:35> - Laboratory Results Result Diagrams: 03/25/18 12:24 - ECG O2 Sat by Pulse Oximetry: 100 - Progress ED Course And Treament: 78 YO Male with b/l nephrostomy tubes with pain and discharge at site, pain and altered. VS stable, pt afebrile -cbc, cmp -ua, udip -lactic acid, phos, Mag -coags -CT abd and pelvis -CT head -chest XR -EKG, Trops -IVF -Morphine for pain Pt endorsed to Dr. Bhatt <Erica Fernandez - Last Filed: 03/25/18 12:53> - Laboratory Results Result Diagrams: 03/25/18 12:24 03/25/18 12:24 Interpretation Of Abn Labs: 1.5 wbc - ECG ECG: Positive for: Interpreted By Me, Viewed By Me ECG Rhythm: Positive for: Normal QRS, Normal ST Segment, Sinus Rhythm Pulse Ox Interpretation: Normal - Radiology X-Ray: Read By Radiologist X-Ray Interpretation: No Acute Disease - CT Scan/US ct head Other Rad Studies (CT/US): Read By Radiologist Other Rad Interpretation: no acute - Progress ED Course And Treament: 1456: Stable. AAOx3. Dr. Swanson to admit. Will give orders when pt. reaches floor. Dr. Dewey saw pt. in the ER and aware of plan. Pt. stable. Will tx for infection. Wound cx sent. Does not meet sepsis criteria at this time. 1724: Spoke with Dr. Clifford for L5 fx. States he reviewed images. Nothing to do about it at this time. MPRESSION: Interval worsening of diffuse osteoblastic metastases. L5 superior endplate compression fracture, new from the prior study dated 2017. Stable position of malpositioned right percutaneous nephrostomy with pigtail in a lower pole calyx. Additional stable findings as above. <Joby Bhatt - Last Filed: 03/25/18 17:35> Disposition - Patient ED Disposition Is Patient to be Admitted: Transfer of Care - Disposition Disposition Time: 12:54 <Erica Fernandez - Last Filed: 03/25/18 12:53> - Patient ED Disposition Is Patient to be Admitted: Yes Counseled Patient/Family Regarding: Studies Performed, Diagnosis - Pt Status Changed To: Hospital Disposition Of: Inpatient - Admit Certification Admit to Inpatient:: After my assessment, the patient will require hospitalization for at least two midnights. This is because of the severity of symptoms shown, intensity of services needed, and/or the medical risk in this patient being treated as an outpatient. - POA Present On Arrival: Cath Associated UTI (nephrectomy tube infections) <Joby Bhatt - Last Filed: 03/25/18 17:35> - Clinical Impression Clinical Impression: Low back pain, Pyelonephritis, Altered mental status - Disposition Condition: FAIR
[2018-03-25] MEDS ORDERED: Iohexol 240 (50 ml) PO ONE (11:40)
--- NOTE | 2018-03-25 12:15 | RAD ---
Date of service: 03/25/2018 HISTORY: Sepsis Patient COMPARISON: Chest radiograph dated 02/12/2018. FINDINGS: LUNGS: Able chronic prominence of the bilateral interstitial markings. No focal consolidation. PLEURA: No significant pleural effusion identified, no pneumothorax apparent. CARDIOVASCULAR: Normal. OSSEOUS STRUCTURES: Unchanged. VISUALIZED UPPER ABDOMEN: Partially imaged bilateral percutaneous nephrostomy tubes. OTHER FINDINGS: Right internal jugular access chest port, unchanged. IMPRESSION: No active disease.
[2018-03-25 12:18] LABS: VENOUS BLOOD GAS BASE EXCESS -0.4 mmol/L (0.0-2.0); VENOUS BLOOD GAS PCO2 33 mmHg (40-60); VENOUS BLOOD GAS PO2 20 mm/Hg (30-55); VENOUS BLOOD PH 7.45 (7.32-7.43)
[2018-03-25 12:43] LABS: INR 1.2 (0.9-1.2); PARTIAL THROMBOPLASTIN TIME 27.7 Seconds (25.6-37.1); PROTHROMBIN TIME 13.8 Seconds (9.8-13.1)
[2018-03-25 12:46] LABS: ALBUMIN 3.5 g/dL (3.5-5.0); ALT/SGPT 61 U/L (21-72); AST/SGOT 59 U/L (17-59); BLOOD UREA NITROGEN 21 mg/dl (9-20); CALCIUM 8.8 mg/dL (8.4-10.2); GFR AFRICAN-AMERICAN > 60; GFR NON-AFRICAN AMERICAN 58
--- NOTE | 2018-03-25 12:50 | CT ---
Date of service: 03/25/2018 PROCEDURE: CT HEAD WITHOUT CONTRAST. HISTORY: headache COMPARISON: CT head dated 02/12/2018 TECHNIQUE: Axial computed tomography images were obtained through the head/brain without intravenous contrast. Radiation dose: Total exam DLP = 785.4 mGy-cm. This CT exam was performed using one or more of the following dose reduction techniques: Automated exposure control, adjustment of the mA and/or kV according to patient size, and/or use of iterative reconstruction technique. FINDINGS: HEMORRHAGE: No intracranial hemorrhage. BRAIN: No mass effect or edema. Atrophy. Chronic microvascular ischemic changes. VENTRICLES: Mildly prominent. No hydrocephalus. CALVARIUM: Unremarkable. PARANASAL SINUSES: Unremarkable as visualized. No significant inflammatory changes. MASTOID AIR CELLS: Unremarkable as visualized. No inflammatory changes. OTHER FINDINGS: None. IMPRESSION: No acute intracranial pathology. Age-related changes.
[2018-03-25 13:03] LABS: BASO % 0.8 % (0.0-2.0); EOS % 1.5 % (0.0-4.0); HEMOGLOBIN 9.6 g/dL (12.0-18.0); LYMPH # 0.4 K/uL (1.0-4.3); LYMPH % 28.2 % (20.0-40.0); MEAN CELL VOLUME 89.4 fl (80.0-94.0); MEAN CORPUSCULAR HEMOGLOBIN 29.6 pg (27.0-31.0); MEAN CORPUSCULAR HGB CONC 33.1 g/dL (33.0-37.0); MEAN PLATELET VOLUME 7.1 fl (7.2-11.7); MONO # 0.1 K/uL (0.0-0.8); NEUT % 63.5 % (50.0-75.0); NRBC % 0.3 % (0.0-0.0); RBC 3.25 Mil/uL (4.40-5.90); RED CELL DISTRIBUTION WIDTH 15.8 % (11.5-14.5)
[2018-03-25 13:05] LABS: WHITE BLOOD COUNT 1.5 K/uL (4.8-10.8)
[2018-03-25] MEDS: Sodium Chloride 0.9% 1,000 ML IV SCH ×2 (13:08→17:26)
[2018-03-25] MEDS ORDERED: Iohexol 240 (50 ml) ONE (13:09)
[2018-03-25 13:41] LABS: URINE BACTERIA FEW (<OCC); URINE BILIRUBIN NEGATIVE (NEGATIVE); URINE BLOOD MODERATE (NEGATIVE); URINE CLARITY CLOUDY (Clear); URINE COLOR YELLOW (YELLOW); URINE GLUCOSE (UA) NEG (Normal); URINE LEUKOCYTE ESTERASE LARGE Leu/uL (Negative); URINE PROTEIN 100 mg/dL (NEGATIVE); URINE UROBILINOGEN 0.2-1.0 mg/dL (0.2-1.0); WBC CLUMPS MANY /hpf
[2018-03-25] MEDS ORDERED: Ciprofloxacin 400mg/200ml D5W 400 MG/200 ML BAG IV STA (14:17)
[2018-03-25] MEDS ORDERED: Piperacillin/Tazobact 3.375 GM in Sodium Chloride 0.9% 100 ML IV STA (14:18)
[2018-03-25] MEDS ORDERED: Sodium Chloride 0.9% 50 ML IV ONE (15:33)
[2018-03-25] MEDS ORDERED: Iohexol 300 100 ML IJ ONE (15:33)
[2018-03-25] MEDS ORDERED: Ciprofloxacin 400mg/200ml D5W 400 MG/200 ML BAG IVPB ONE (16:12)
[2018-03-25] MEDS ORDERED: Piperacillin/Tazobact 3.375 gm Inj IVPB ONE (16:12)
--- NOTE | 2018-03-25 16:20 | CT ---
Date of service: 03/25/2018 PROCEDURE: CT Abdomen and Pelvis with contrast HISTORY: back pain, altered COMPARISON: CT scan of the abdomen and pelvis dated 01/18/2018. TECHNIQUE: Contrast dose: 95 mL Omnipaque 300 Radiation dose: Total exam DLP = 611.7 mGy-cm. This CT exam was performed using one or more of the following dose reduction techniques: Automated exposure control, adjustment of the mA and/or kV according to patient size, and/or use of iterative reconstruction technique. FINDINGS: LOWER THORAX: Bibasilar emphysematous changes. Right lower lobe scarring. Heart size normal. Coronary arterial and valvular calcifications. LIVER: Mild hepatic steatosis. Trace intrahepatic biliary ductal dilatation. No gross lesion. GALLBLADDER AND BILE DUCTS: Distended gallbladder without wall thickening/edema or radiopaque cholelithiasis. Prominence of the CBD measuring up to 9 mm. PANCREAS: Unremarkable. No gross lesion or ductal dilatation. SPLEEN: Unremarkable. ADRENALS: Unremarkable. No mass. KIDNEYS AND URETERS: Bilateral percutaneous nephrostomy tubes, the pigtail on the right is in a lower pole calyx. No hydronephrosis. No solid mass. VASCULATURE: Unremarkable. No aortic aneurysm. BOWEL: Small hiatal hernia. Colonic diverticulosis. Prominent amount of retained colonic stool No obstruction. No gross mural thickening. APPENDIX: Normal appendix. PERITONEUM: Small fat containing left inguinal hernia. No free fluid. No free air. LYMPH NODES: Unremarkable. No enlarged lymph nodes. BLADDER: Underdistended bladder with irregular wall thickening which may be related to chronic bladder outlet obstruction and/or cystitis. REPRODUCTIVE: Prostatomegaly. BONES: No acute fracture. Interval worsening of diffuse osteoblastic metastases. Grade 1 anterolisthesis of L4 on L5. L5 superior endplate compression fracture, new from the prior study 01/18/2018. OTHER FINDINGS: None. IMPRESSION: Interval worsening of diffuse osteoblastic metastases. L5 superior endplate compression fracture, new from the prior study dated 01/18/2018. Stable position of malpositioned right percutaneous nephrostomy with pigtail in a lower pole calyx. Additional stable findings as above.
--- NOTE | 2018-03-25 17:58 | CP.PCM.PN ---
Subjective - Date & Time of Evaluation Date of Evaluation: 03/25/18 Time of Evaluation: 17:57 - Subjective Subjective: reviewed MRI there is a minimal compression fracture No tx required except analgesics Objective - Vital Signs/Intake and Output Vital Signs (last 24 hours): Temp Pulse Resp BP Pulse Ox 99.3 F 98 H 19 100/58 L 98 03/25/18 17:14 03/25/18 17:14 03/25/18 17:14 03/25/18 17:14 03/25/18 17:14 - Medications Medications: Current Medications Enoxaparin Sodium (Lovenox) 40 mg SC DAILY MIKE PRN Reason: Protocol Glipizide (Glucotrol) 10 mg PO BID MIKE Sodium Chloride (Sodium Chloride 0.9%) 1,000 mls @ 1,000 mls/hr IV .Q1H MIKE Last Admin: 03/25/18 13:08 Dose: 1,000 mls/hr Piperacillin Sod/Tazobactam (Sod 3.375 gm/ Sodium Chloride) 100 mls @ 100 mls/ hr IVPB Q6 MIKE PRN Reason: Protocol Sodium Chloride (Sodium Chloride 0.9%) 1,000 mls @ 100 mls/hr IV .Q10H MIKE Stop: 03/26/18 17:07 Last Admin: 03/25/18 17:26 Dose: 100 mls/hr Morphine Sulfate (Morphine) 2 mg IVP Q6 PRN PRN Reason: Pain, moderate (4-7) Tamsulosin HCl (Flomax) 0.4 mg PO HS MIKE - Labs Labs: 03/25/18 12:24 03/25/18 12:24 PT 13.8 Seconds (9.8-13.1) H 03/25/18 12:24 INR 1.2 (0.9-1.2) 03/25/18 12:24 APTT 27.7 Seconds (25.6-37.1) 03/25/18 12:24
[2018-03-26] MEDS: Piperacillin/Tazobact 3.375 GM in Sodium Chloride 0.9% 100 ML IVPB SCH ×2 (04:44→11:09)
[2018-03-26] MEDS: Sodium Chloride 0.9% 1,000 ML IV SCH ×2 (04:46→05:40)
[2018-03-26] MEDS: Enoxaparin 40 mg Syringe SC SCH (11:10)
--- NOTE | 2018-03-26 14:01 | CP.PCM.CON ---
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 Pt. denies any fever or chills. as per his son who is at his bediside the gauze covering the nephrostomy tubes is usually clean and w/o any discharge but now has some yelloish discharge on it. pt. denies any abdominal pian and denies any nausea or vomiting and denies any diarrhea. he states he was having pain around the nephrostomy tube sites but is better today. denies any cough or sob, denies any chest pain. pt. is found to have + UA and staph in urine cx so far. i'm asked to evaluate and help with antibiotic management. Past medical history: DM, urothelial cancer Past surgical history: Hernia repair Family history: Denies hematologic and oncologic problems Social history: Former tobacco, denies alcohol, and illicit drug use. Allergies: Aspirin Review of Systems - Review of Systems Review of Systems: ROS- denies any fever or chills, denies any SAPP, denies any cough or sob, denies any chest pain, denies any abd. pain, denies any N/V, had pain around b/l nephrostomy tubes in lower back but not today. had some d/c noted on the gauze on the nephrostomy tubes denies any diarrhea Past Patient History - Infectious Disease Hx of Infectious Diseases: None - Past Medical History & Family History Past Medical History?: Yes - Past Social History Smoking Status: Former Smoker Home Situation {Lives}: With Family - PULMONARY Hx Respiratory Disorders: No - NEUROLOGICAL Hx Neurological Disorder: No - HEENT Hx HEENT Problems: No - RENAL Hx Chronic Kidney Disease: No Hx Neurogenic Bladder: Yes - ENDOCRINE/METABOLIC Hx Endocrine Disorders: Yes Hx Diabetes Mellitus Type 2: Yes - HEMATOLOGICAL/ONCOLOGICAL Hx Blood Disorders: Yes Hx Anemia: Yes - INTEGUMENTARY Hx Dermatological Problems: No - MUSCULOSKELETAL/RHEUMATOLOGICAL Hx Musculoskeletal Disorders: No Hx Falls: No - GASTROINTESTINAL Hx Gastrointestinal Disorders: No Other/Comment: TURBT - GENITOURINARY/GYNECOLOGICAL Hx Genitourinary Disorders: Yes Hx Bladder Cancer: Yes - PSYCHIATRIC Hx Psychophysiologic Disorder: Yes Hx Depression: Yes Hx Substance Use: No - SURGICAL HISTORY Hx Surgeries: Yes Hx Herniorrhaphy: Yes (> 20 YRS AGO) Other/Comment: Hx TURBT with 07/2017. Hx cystoscopy - Transurethral resection of bladder tumor 12/06/17. Hx Bilateral Nephrostomy tube placement 08/30. Right portacath - ANESTHESIA Hx Anesthesia: Yes Hx Anesthesia Reactions: No Hx Malignant Hyperthermia: No Meds Allergies/Adverse Reactions: Allergies Allergy/AdvReac Type Severity Reaction Status Date / Time aspirin Allergy DIZZINESS Verified 03/23/18 07:50 - Medications Medications: Current Medications Enoxaparin Sodium (Lovenox) 40 mg SC DAILY MIKE PRN Reason: Protocol Last Admin: 03/26/18 11:10 Dose: 40 mg Glipizide (Glucotrol) 10 mg PO BID [facility] Last Admin: 03/26/18 11:10 Dose: 10 mg Sodium Chloride (Sodium Chloride 0.9%) 1,000 mls @ 1,000 mls/hr IV .Q1H MIKE Last Admin: 03/26/18 04:46 Dose: 1,000 mls/hr Piperacillin Sod/Tazobactam (Sod 3.375 gm/ Sodium Chloride) 100 mls @ 100 mls/ hr IVPB Q6 MIKE PRN Reason: Protocol Last Admin: 03/26/18 11:09 Dose: 100 mls/hr Sodium Chloride (Sodium Chloride 0.9%) 1,000 mls @ 100 mls/hr IV .Q10H MIKE Stop: 03/26/18 17:07 Last Admin: 03/26/18 05:40 Dose: 100 mls/hr Morphine Sulfate (Morphine) 2 mg IVP Q6 PRN PRN Reason: Pain, moderate (4-7) Last Admin: 03/26/18 11:57 Dose: 2 mg Tamsulosin HCl (Flomax) 0.4 mg PO HS MIKE Last Admin: 03/25/18 22:00 Dose: Not Given Physical Exam - Constitutional Appears: No Acute Distress - Head Exam Head Exam: ATRAUMATIC - Eye Exam Eye Exam: EOMI, PERRL - ENT Exam Additional comments: dry oral mucosa - Neck Exam Neck exam: Positive for: Full Rom Additional comments: supple - Respiratory Exam Respiratory Exam: Clear to Auscultation Bilateral, NORMAL BREATHING PATTERN - Cardiovascular Exam Cardiovascular Exam: RRR, +S1, +S2 Additional comments: right chest port in place. no erythema / no discharge - GI/Abdominal Exam GI & Abdominal Exam: Normal Bowel Sounds, Soft Additional comments: NT, ND - Extremities Exam Additional comments: no edema b/l LE dry skin changes - Back Exam Additional comments: b/l nephrostomy tubes present with slight yellow green discharge noted on the gauze covering them, no surrounding erythema or swelling urine collected in b/l bags of the nephrostomy tubes yellow - Neurological Exam Neurological exam: Alert, Oriented x3 Results - Vital Signs Recent Vital Signs: Last Vital Signs Temp 98.3 F 03/26/18 11:59 Pulse 91 H 03/26/18 11:59 Resp 18 03/26/18 11:59 BP 120/63 03/26/18 11:59 Pulse Ox 95 03/26/18 11:59 - Labs Result Diagrams: 03/25/18 12:24 03/25/18 12:24 Labs: Laboratory Results - last 24 hr 03/25/18 03/25/18 03/26/18 13:45 17:20 05:04 POC Glucose (mg/dL) 123 H 113 H Lactic Acid 0.6 L 03/26/18 11:22 POC Glucose (mg/dL) 146 H Lactic Acid Laboratory Results - last 72 hr 03/25/18 03/25/18 03/25/18 12:13 12:24 12:24 WBC 1.5 L* RBC 3.25 L Hgb 9.6 L Hct 29.1 L MCV 89.4 D MCH 29.6 MCHC 33.1 RDW 15.8 H Plt Count 144 MPV 7.1 L Neut % (Auto) 63.5 Lymph % (Auto) 28.2 Shoshone % (Auto) 6.0 Eos % (Auto) 1.5 Baso % (Auto) 0.8 Neut # (Auto) 1.0 L Lymph # (Auto) 0.4 L [place]oshone # (Auto) 0.1 Eos # (Auto) 0.0 Baso # (Auto) 0.0 PT INR APTT pO2 20 L VBG pH 7.45 H VBG pCO2 33 L VBG HCO3 22.9 VBG Total CO2 23.9 VBG O2 Sat (Calc) 44.0 VBG Base Excess -0.4 L VBG Potassium 4.4 Sodium 134.0 135 Chloride 102.0 103 Glucose 119 H Lactate 1.2 FiO2 21.0 Potassium 4.5 Carbon Dioxide 22 Anion Gap 15 BUN 21 H Creatinine 1.2 Est GFR ( Amer) > 60 Est GFR (Non-Af Amer) 58 POC Glucose (mg/dL) Random Glucose 117 H Lactic Acid Calcium 8.8 Phosphorus 2.5 Magnesium 2.0 Total Bilirubin 1.1 AST 59 ALT 61 Alkaline Phosphatase 1180 H Troponin I 0.0210 Total Protein 7.0 Albumin 3.5 Globulin 3.5 Albumin/Globulin Ratio 1.0 Venous Blood Potassium 4.4 Urine Color Urine Clarity Urine pH Ur Specific [place] Urine Protein Urine Glucose (UA) Urine Ketones Urine Blood Urine Nitrate Urine Bilirubin Urine Urobilinogen Ur Leukocyte Esterase Urine RBC (Auto) Urine WBC Clumps (Auto) Urine Microscopic WBC Urine Bacteria Urine Yeast (Budding) 03/25/18 03/25/18 03/25/18 12:24 13:15 13:45 WBC RBC Hgb Hct MCV MCH MCHC RDW Plt Count MPV Neut % (Auto) Lymph % (Auto) Shoshone % (Auto) Eos % (Auto) Baso % (Auto) Neut # (Auto) Lymph # (Auto) [place]oshone # (Auto) Eos # (Auto) Baso # (Auto) PT 13.8 H INR 1.2 APTT 27.7 pO2 VBG pH VBG pCO2 VBG HCO3 VBG Total CO2 VBG O2 Sat (Calc) VBG Base Excess VBG Potassium Sodium Chloride Glucose Lactate FiO2 Potassium Carbon Dioxide Anion Gap BUN Creatinine Est GFR ( Amer) Est GFR (Non-Af Amer) POC Glucose (mg/dL) Random Glucose Lactic Acid 0.6 L Calcium Phosphorus Magnesium Total Bilirubin AST ALT Alkaline Phosphatase Troponin I Total Protein Albumin Globulin Albumin/Globulin Ratio Venous Blood Potassium Urine Color Yellow Urine Clarity Cloudy Urine pH 7.0 Ur Specific [place] 1.011 Urine Protein 100 Urine Glucose (UA) Neg Urine Ketones Negative Urine Blood Moderate Urine Nitrate Positive H Urine Bilirubin Negative Urine Urobilinogen 0.2-1.0 Ur Leukocyte Esterase Large Urine RBC (Auto) 36 H Urine WBC Clumps (Auto) Many H Urine Microscopic WBC 423 H Urine Bacteria Few H Urine Yeast (Budding) Many H 03/25/18 03/26/18 03/26/18 17:20 05:04 11:22 WBC RBC Hgb Hct MCV MCH MCHC RDW Plt Count MPV Neut % (Auto) Lymph % (Auto) [place]oshone % (Auto) Eos % (Auto) Baso % (Auto) Neut # (Auto) Lymph # (Auto) [place] # (Auto) Eos # (Auto) Baso # (Auto) PT INR APTT pO2 VBG pH VBG pCO2 VBG HCO3 VBG Total CO2 VBG O2 Sat (Calc) VBG Base Excess VBG Potassium Sodium Chloride Glucose Lactate FiO2 Potassium Carbon Dioxide Anion Gap BUN Creatinine Est GFR ( Amer) Est GFR (Non-Af Amer) POC Glucose (mg/dL) 123 H 113 H 146 H Random Glucose Lactic Acid Calcium Phosphorus Magnesium Total Bilirubin AST ALT Alkaline Phosphatase Troponin I Total Protein Albumin Globulin Albumin/Globulin Ratio Venous Blood Potassium Urine Color Urine Clarity Urine pH Ur Specific [place] Urine Protein Urine Glucose (UA) Urine Ketones Urine Blood Urine Nitrate Urine Bilirubin Urine Urobilinogen Ur Leukocyte Esterase Urine RBC (Auto) Urine WBC Clumps (Auto) Urine Microscopic WBC Urine Bacteria Urine Yeast (Budding) Microbiology 03/25/18 13:15 Urine,Veliz Urine Culture - Preliminary Staphylococcus Aureus 03/25/18 12:24 Blood Blood Culture - Preliminary NO GROWTH AFTER 24 HOURS 03/25/18 13:45 Back Gram Stain - Final 03/25/18 13:45 Back Wound Culture - Preliminary Gram Positive Cocci Accession No. : [id number] Patient Name / ID : GWENDOLYN BLANCA / [id number] Exam Date : 03/25/2018 15:46:34 ( Approved ) Study Comment : Sex / Age : M / 78Y Creator : Alexsander Villegas MD Dictator : Alexsander Villegas MD Grind Operator : Nipping Machine Operator : Alexsander Villegas MD Approver2 : Report Date : 03/25/2018 16:19:03 My Comment : Date of service: 03/25/2018 PROCEDURE: CT Abdomen and Pelvis with contrast HISTORY: back pain, altered COMPARISON: CT scan of the abdomen and pelvis dated 01/18/2018. TECHNIQUE: Contrast dose: 95 mL Omnipaque 300 Radiation dose: Total exam DLP = 611.7 mGy-cm. This CT exam was performed using one or more of the following dose reduction techniques: Automated exposure control, adjustment of the mA and/or kV according to patient size, and/or use of iterative reconstruction technique. FINDINGS: LOWER THORAX: Bibasilar emphysematous changes. Right lower lobe scarring. Heart size normal. Coronary arterial and valvular calcifications. LIVER: Mild hepatic steatosis. Trace intrahepatic biliary ductal dilatation. No gross lesion. GALLBLADDER AND BILE DUCTS: Distended gallbladder without wall thickening/edema or radiopaque cholelithiasis. Prominence of the CBD measuring up to 9 mm. PANCREAS: Unremarkable. No gross lesion or ductal dilatation. SPLEEN: Unremarkable. ADRENALS: Unremarkable. No mass. KIDNEYS AND URETERS: Bilateral percutaneous nephrostomy tubes, the pigtail on the right is in a lower pole calyx. No hydronephrosis. No solid mass. VASCULATURE: Unremarkable. No aortic aneurysm. BOWEL: Small hiatal hernia. Colonic diverticulosis. Prominent amount of retained colonic stool No obstruction. No gross mural thickening. APPENDIX: Normal appendix. PERITONEUM: Small fat containing left inguinal hernia. No free fluid. No free air. LYMPH NODES: Unremarkable. No enlarged lymph nodes. BLADDER: Underdistended bladder with irregular wall thickening which may be related to chronic bladder outlet obstruction and/or cystitis. REPRODUCTIVE: Prostatomegaly. BONES: No acute fracture. Interval worsening of diffuse osteoblastic metastases. Grade 1 anterolisthesis of L4 on L5. L5 superior endplate compression fracture, new from the prior study 01/18/2018. OTHER FINDINGS: None. IMPRESSION: Interval worsening of diffuse osteoblastic metastases. L5 superior endplate compression fracture, new from the prior study dated 2017. Stable position of malpositioned right percutaneous nephrostomy with pigtail in a lower pole calyx. Additional stable findings as above. Accession No. : [id number] Patient Name / ID : GWENDOLYN BLANCA / [id number] Exam Date : 03/25/2018 11:41:49 ( Approved ) Study Comment : Sex / Age : M / 78Y Creator : Alexsander Villegas MD Dictator : Alexsander Villegas MD Grind Operator : Nipping Machine Operator : Alexsander Villegas MD Approver2 : Report Date : 03/25/2018 12:13:56 My Comment : Date of service: 03/25/2018 HISTORY: Sepsis Patient COMPARISON: Chest radiograph dated 02/12/2018. FINDINGS: LUNGS: Able chronic prominence of the bilateral interstitial markings. No focal consolidation. PLEURA: No significant pleural effusion identified, no pneumothorax apparent. CARDIOVASCULAR: Normal. OSSEOUS STRUCTURES: Unchanged. VISUALIZED UPPER ABDOMEN: Partially imaged bilateral percutaneous nephrostomy tubes. OTHER FINDINGS: Right internal jugular access chest port, unchanged. IMPRESSION: No active disease. Assessment & Plan (1) Bladder cancer Status: Acute (2) Back pain Status: Acute (3) Pyelonephritis Status: Acute (4) UTI (urinary tract infection) Status: Acute (5) Leukopenia Status: Acute - Assessment and Plan (Free Text) Assessment: A/P- 78 year old male with DM II, bladder cancer with bone sto mets s/p b/l nephrostomy tubes for past 4 months admitted with low back pian and discharge noted around nephrostomy tubes. afebrile leukoenia but not neutropenic ANC- 945 UA- positive urine cx- prelim staph aureus ( sensitivity not back yet) based on med records prior urine cx have been MSSA. fluid from around nephro site cx- GPC ct abdomen /pelvis rport noted. PLan- advise to start pt. on IV vancomycin pending sensitivity of this staph aureus UTI. no mention of any fluid collection around the nephrostomy tubes on ct report, no hydro as per report. await ID and sensitivity of the GPC in nephro fluid cx as well. check blood cx x 2 as well. keep vanco trough 10-15. monitor wbc and ANC closely. and ONC f/u. All above d/w patient and his son who is at bedside. Thank you fro allowing me to take part in the care of this patient,
--- NOTE | 2018-03-26 16:04 | CP.PCM.HP ---
History of Present Illness - History of Present Illness History of Present Illness: CC: Pain at Nephrostomy site And AMS History of present Illness: History from the patient and record An 78 YO Male with PMHx of DM, Bladder cancer, nephrostomy tube presents was brought to ED by EMS for low back pain. Endorsing low back pain. Patient endorsing pain around nephrostomy x past few days. Home nurse came on the day of presentation and noted purulent discharge around tube sites. Denies fever, chest pain, palpitations, and dyspnea. Endorsing feeling cold in the room. Pt is not focused, seems altered at times. Present on Admission - Present on Admission Any Indicators Present on Admission: No Review of Systems - Review of Systems All systems: reviewed and no additional remarkable complaints except Past Patient History - Infectious Disease Hx of Infectious Diseases: None - Past Medical History & Family History Past Medical History?: Yes Past Family History: Reviewed and not pertinent - Past Social History Smoking Status: Former Smoker Alcohol: None Drugs: Denies Home Situation {Lives}: With Family - CARDIAC Hx Cardiac Disorders: Yes Hx Peripheral Edema: Yes (BLE) - PULMONARY Hx Respiratory Disorders: No - NEUROLOGICAL Hx Neurological Disorder: No - HEENT Hx HEENT Problems: No - RENAL Hx Chronic Kidney Disease: No Hx Neurogenic Bladder: Yes - ENDOCRINE/METABOLIC Hx Endocrine Disorders: Yes Hx Diabetes Mellitus Type 2: Yes - HEMATOLOGICAL/ONCOLOGICAL Hx Blood Disorders: Yes Hx Anemia: Yes - INTEGUMENTARY Hx Dermatological Problems: No - MUSCULOSKELETAL/RHEUMATOLOGICAL Hx Musculoskeletal Disorders: No Hx Falls: No - GASTROINTESTINAL Hx Gastrointestinal Disorders: No Other/Comment: TURBT - GENITOURINARY/GYNECOLOGICAL Hx Genitourinary Disorders: Yes Hx Bladder Cancer: Yes - PSYCHIATRIC Hx Psychophysiologic Disorder: Yes Hx Depression: Yes Hx Substance Use: No - SURGICAL HISTORY Hx Surgeries: Yes Hx Herniorrhaphy: Yes (> 20 YRS AGO) Other/Comment: Hx TURBT with 07/2017. Hx cystoscopy - Transurethral resection of bladder tumor 12/06/17. Hx Bilateral Nephrostomy tube placement 08/30. Right portacath - ANESTHESIA Hx Anesthesia: Yes Hx Anesthesia Reactions: No Hx Malignant Hyperthermia: No Meds Allergies/Adverse Reactions: Allergies Allergy/AdvReac Type Severity Reaction Status Date / Time aspirin Allergy DIZZINESS Verified 03/23/18 07:50 Physical Exam - Constitutional Appears: Chronically Ill - Head Exam Head Exam: ATRAUMATIC, NORMAL INSPECTION, NORMOCEPHALIC - Eye Exam Eye Exam: EOMI, Normal appearance, PERRL Pupil Exam: NORMAL ACCOMODATION, PERRL - ENT Exam ENT Exam: Mucous Membranes Moist, Normal Exam - Neck Exam Neck exam: Positive for: Full Rom, Normal Inspection - Respiratory Exam Respiratory Exam: Clear to Auscultation Bilateral, NORMAL BREATHING PATTERN - Cardiovascular Exam Cardiovascular Exam: REGULAR RHYTHM, +S1, +S2 - GI/Abdominal Exam GI & Abdominal Exam: Normal Bowel Sounds, Soft. absent: Tenderness - Extremities Exam Extremities exam: Positive for: normal capillary refill, normal inspection - Back Exam Back exam: NORMAL INSPECTION - Neurological Exam Neurological exam: Alert, CN II-XII Intact, Normal Gait, Oriented x3, Reflexes Normal - Psychiatric Exam Psychiatric exam: Normal Affect, Normal Mood - Skin Skin Exam: Dry, Intact, Normal Color, Warm Results - Vital Signs Recent Vital Signs: Last Vital Signs Temp 98.0 F 03/26/18 15:58 Pulse 81 03/26/18 15:58 Resp 20 03/26/18 15:58 BP 119/62 03/26/18 15:58 Pulse Ox 98 03/26/18 15:58 - Labs Result Diagrams: 03/27/18 15:09 03/27/18 15:09 Labs: Laboratory Results - last 24 hr 03/25/18 03/26/18 03/26/18 17:20 05:04 11:22 POC Glucose (mg/dL) 123 H 113 H 146 H - Imaging and Cardiology CT abdomen/pelvis: Status: Report reviewed by me Additional comment: CT Abdomen and Pelvis with contrast HISTORY: back pain, altered COMPARISON: CT scan of the abdomen and pelvis dated 01/18/2018. TECHNIQUE: Contrast dose: 95 mL Omnipaque 300 Radiation dose: Total exam DLP = 611.7 mGy-cm. This CT exam was performed using one or more of the following dose reduction techniques: Automated exposure control, adjustment of the mA and/or kV according to patient size, and/or use of iterative reconstruction technique. FINDINGS: LOWER THORAX: Bibasilar emphysematous changes. Right lower lobe scarring. Heart size normal. Coronary arterial and valvular calcifications. LIVER: Mild hepatic steatosis. Trace intrahepatic biliary ductal dilatation. No gross lesion. GALLBLADDER AND BILE DUCTS: Distended gallbladder without wall thickening/edema or radiopaque cholelithiasis. Prominence of the CBD measuring up to 9 mm. PANCREAS: Unremarkable. No gross lesion or ductal dilatation. SPLEEN: Unremarkable. ADRENALS: Unremarkable. No mass. KIDNEYS AND URETERS: Bilateral percutaneous nephrostomy tubes, the pigtail on the right is in a lower pole calyx. No hydronephrosis. No solid mass. VASCULATURE: Unremarkable. No aortic aneurysm. BOWEL: Small hiatal hernia. Colonic diverticulosis. Prominent amount of retained colonic stool No obstruction. No gross mural thickening. APPENDIX: Normal appendix. PERITONEUM: Small fat containing left inguinal hernia. No free fluid. No free air. LYMPH NODES: Unremarkable. No enlarged lymph nodes. BLADDER: Underdistended bladder with irregular wall thickening which may be related to chronic bladder outlet obstruction and/or cystitis. REPRODUCTIVE: Prostatomegaly. BONES: No acute fracture. Interval worsening of diffuse osteoblastic metastases. Grade 1 anterolisthesis of L4 on L5. L5 superior endplate compression fracture, new from the prior study 01/18/2018. OTHER FINDINGS: None. IMPRESSION: Interval worsening of diffuse osteoblastic metastases. L5 superior endplate compression fracture, new from the prior study dated 2017. Stable position of malpositioned right percutaneous nephrostomy with pigtail in a lower pole calyx. Additional stable findings as above. CT scan - head Status: Report reviewed by me Additional comment: CT HEAD WITHOUT CONTRAST. HISTORY: headache COMPARISON: CT head dated 02/12/2018 TECHNIQUE: Axial computed tomography images were obtained through the head/brain without intravenous contrast. Radiation dose: Total exam DLP = 785.4 mGy-cm. This CT exam was performed using one or more of the following dose reduction techniques: Automated exposure control, adjustment of the mA and/or kV according to patient size, and/or use of iterative reconstruction technique. FINDINGS: HEMORRHAGE: No intracranial hemorrhage. BRAIN: No mass effect or edema. Atrophy. Chronic microvascular ischemic changes. VENTRICLES: Mildly prominent. No hydrocephalus. CALVARIUM: Unremarkable. PARANASAL SINUSES: Unremarkable as visualized. No significant inflammatory changes. MASTOID AIR CELLS: Unremarkable as visualized. No inflammatory changes. OTHER FINDINGS: None. IMPRESSION: No acute intracranial pathology. Age-related changes. Chest x-ray Status: Report reviewed by me Additional comment: No Acute finding Assessment & Plan (1) Altered mental status Assessment and Plan: due to Metabolic Encephalopathy Dehydration and Sepsis IVF IV Abx ID Consult Status: Acute Priority: High (2) Acute pyelonephritis Assessment and Plan: B/L Nephrostomy Tubed due to Obstructive Uropathy IVF IV antibiotics Pain Medication Blood and Urine Cultures Wound Culture ID Consulted Status: Acute Priority: High (3) Obstructive uropathy Assessment and Plan: Stage IV Bladder Cancer B/L Nephrostomy Tube High Alk Phos GGT Urology Consult Status: Acute Priority: High (4) Pancytopenia due to antineoplastic chemotherapy Status: Acute Priority: Medium
[2018-03-26] MEDS ORDERED: Dextrose 5%/0.9% NS 1,000 ML IV SCH (17:00)
[2018-03-27] MEDS ORDERED: Dextrose 5%/0.9% NS 1,000 ML IV SCH ×2 (01:50→04:53)
[2018-03-27] MEDS: Enoxaparin 40 mg Syringe SC SCH (08:58)
[2018-03-27] MEDS: Dextrose 5%/0.9% NS 1,000 ML IV SCH ×2 (12:01→23:21)
--- NOTE | 2018-03-27 14:51 | CP.PCM.PN ---
Subjective - Date & Time of Evaluation Date of Evaluation: 03/27/18 Time of Evaluation: 14:15 Objective - Vital Signs/Intake and Output Vital Signs (last 24 hours): Temp Pulse Resp BP Pulse Ox 98.6 F 80 18 154/63 H 97 03/27/18 12:21 03/27/18 12:21 03/27/18 12:21 03/27/18 12:21 03/27/18 12:21 Intake and Output: 03/27/18 03/27/18 06:59 18:59 Intake Total 1360 Output Total 1050 1200 Balance 310 -1200 - Medications Medications: Current Medications Dextrose (Glutose 15) 15 gm PO PRN PRN PRN Reason: Hypoglycemia Last Admin: 03/27/18 05:14 Dose: 15 gm Enoxaparin Sodium (Lovenox) 40 mg SC DAILY MIKE PRN Reason: Protocol Last Admin: 03/27/18 08:58 Dose: 40 mg Sodium Chloride (Sodium Chloride 0.9%) 1,000 mls @ 1,000 mls/hr IV .Q1H MIKE Last Admin: 03/26/18 04:46 Dose: 1,000 mls/hr Vancomycin HCl 1 gm/ Sodium (Chloride) 250 mls @ 166.667 mls/hr IVPB Q12 MIKE PRN Reason: Protocol Last Admin: 03/27/18 08:57 Dose: 166.667 mls/hr Dextrose/Sodium Chloride (Dextrose 5%/0.9% Ns 1000 Ml) 1,000 mls @ 125 mls/hr IV .Q8H MIKE Stop: 03/28/18 07:05 Last Admin: 03/27/18 12:01 Dose: 125 mls/hr Morphine Sulfate (Morphine) 2 mg IVP Q6 PRN PRN Reason: Pain, moderate (4-7) Last Admin: 03/27/18 08:56 Dose: 2 mg Tamsulosin HCl (Flomax) 0.4 mg PO HS MIKE Last Admin: 03/26/18 21:53 Dose: 0.4 mg - Labs Labs: 03/25/18 12:24 03/25/18 12:24 PT 13.8 Seconds (9.8-13.1) H 03/25/18 12:24 INR 1.2 (0.9-1.2) 03/25/18 12:24 APTT 27.7 Seconds (25.6-37.1) 03/25/18 12:24
[2018-03-27 15:20] LABS: BASO % 0.7 % (0.0-2.0); EOS % 1.2 % (0.0-4.0); HEMOGLOBIN 8.6 g/dL (12.0-18.0); LYMPH # 0.4 K/uL (1.0-4.3); MEAN CELL VOLUME 88.8 fl (80.0-94.0); MEAN CORPUSCULAR HEMOGLOBIN 30.2 pg (27.0-31.0); MEAN PLATELET VOLUME 6.6 fl (7.2-11.7); MONO # 0.1 K/uL (0.0-0.8); MONO % 7.7 % (0.0-10.0); NEUT % 63.4 % (50.0-75.0); NRBC % 0.1 % (0.0-0.0); RBC 2.85 Mil/uL (4.40-5.90); RED CELL DISTRIBUTION WIDTH 15.8 % (11.5-14.5)
[2018-03-27 15:30] LABS: WHITE BLOOD COUNT 1.6 K/uL (4.8-10.8)
[2018-03-27 15:38] LABS: ALB/GLOB RATIO 0.9 (1.0-2.1); ALBUMIN 2.8 g/dL (3.5-5.0); ALT/SGPT 80 U/L (21-72); AST/SGOT 68 U/L (17-59); BLOOD UREA NITROGEN 10 mg/dl (9-20); CALCIUM 7.9 mg/dL (8.4-10.2); GFR AFRICAN-AMERICAN > 60; GFR NON-AFRICAN AMERICAN > 60
[2018-03-27] MEDS: HYDROmorphone 1 mg/ml ISec IVP PRN (21:38)
[2018-03-28] MEDS ORDERED: HYDROmorphone 0.5 mg/0.5 ml ISec IVP ONE ×3 (00:21→04:13)
--- NOTE | 2018-03-28 00:41 | CP.PCM.PCO ---
Physician Communication Note - Physician Communication Note Physician Communication Note: I was called by nurse because left side nosebleed episode for 1 hour. Progress Note - Review of Symptoms Events since last encounter: On arrival to bedside evaluation, patient was found alert, wake, and oriented x 3 sitting in bed. Noted drops of bright red blood in tissues next to patient and one tissue in his hand. No active nosebleed noted at this time. Patient reports he has had nosebleed episode in the past, but they lasted only for a short time, however this time has been persistent for one hour. VS WNL. Patient denies chest pain, SOB, dizziness or lightheadedness at this time. Reporting chronic back pain secondary to bilateral nephrostomy tubes. PE: noted possible clot inside left nostril (does not seem to be a polyp), however patent left nostril. NO active bleeding at this time. Throat: no evidence of bleeding. Plan: Epistaxis stopped at this time. Patient hemodynamically stable. monitor VS, and epistaxis. maintain elevated head of the bed. If bleeding maintain leaning forward position avoid touching the inside of his nose Noted slightly decreased platelets in last labs, most likely 2/2 chemo will hold Lovenox tonight. Nurse was instructed to call PCP, Dr. Swanson, in AM for further recommendations. will give pain medication
[2018-03-28] MEDS: HYDROmorphone 1 mg/ml ISec IVP PRN ×2 (01:51→20:44)
[2018-03-28] MEDS: HYDROmorphone 0.5 mg/0.5 ml ISec IVP PRN ×2 (08:45→14:22)
--- NOTE | 2018-03-28 12:27 | CP.PCM.PN ---
Subjective - Date & Time of Evaluation Date of Evaluation: 03/28/18 Time of Evaluation: 12:26 - Subjective Subjective: ID Note- Pt. seen and examined today. Pt. states he feels better. denies any fever and denies any back pain. Objective - Vital Signs/Intake and Output Vital Signs (last 24 hours): Temp Pulse Resp BP Pulse Ox 97.8 F 87 18 149/66 97 03/28/18 12:14 03/28/18 12:14 03/28/18 12:14 03/28/18 12:14 03/28/18 12:14 Intake and Output: 03/28/18 03/28/18 06:59 18:59 Intake Total 250 Output Total 700 Balance -450 - Medications Medications: Current Medications Dextrose (Glutose 15) 15 gm PO PRN PRN PRN Reason: Hypoglycemia Last Admin: 03/27/18 05:14 Dose: 15 gm Enoxaparin Sodium (Lovenox) 40 mg SC DAILY MIKE PRN Reason: Protocol Last Admin: 03/27/18 08:58 Dose: 40 mg Hydromorphone HCl (Dilaudid) 2 mg IVP Q4 PRN PRN Reason: Pain, severe (8-10) Last Admin: 03/28/18 08:45 Dose: 2 mg Sodium Chloride (Sodium Chloride 0.9%) 1,000 mls @ 1,000 mls/hr IV .Q1H MIKE Last Admin: 03/26/18 04:46 Dose: 1,000 mls/hr Vancomycin HCl 1 gm/ Sodium (Chloride) 250 mls @ 166.667 mls/hr IVPB Q12 MIKE PRN Reason: Protocol Last Admin: 03/28/18 08:56 Dose: 166.667 mls/hr Morphine Sulfate (Morphine) 2 mg IVP Q6 PRN PRN Reason: Pain, moderate (4-7) Last Admin: 03/27/18 15:22 Dose: 2 mg Tamsulosin HCl (Flomax) 0.4 mg PO HS MIKE Last Admin: 03/27/18 21:39 Dose: 0.4 mg - Labs Labs: - Additional Findings Additional findings: - Constitutional Appears: No Acute Distress - Head Exam Head Exam: ATRAUMATIC - Eye Exam Eye Exam: EOMI, PERRL - ENT Exam Additional comments: dry oral mucosa - Neck Exam Neck exam: Positive for: Full Rom Additional comments: supple - Respiratory Exam Respiratory Exam: Clear to Auscultation Bilateral, NORMAL BREATHING PATTERN - Cardiovascular Exam Cardiovascular Exam: RRR, +S1, +S2 Additional comments: right chest port in place. no erythema / no discharge - GI/Abdominal Exam GI & Abdominal Exam: Normal Bowel Sounds, Soft Additional comments: NT, ND - Extremities Exam Additional comments: no edema b/l LE dry skin changes - Back Exam Additional comments: b/l nephrostomy tubes present no discharge seen today on the dressing, no surrounding erythema or swelling urine collected in b/l bags of the nephrostomy tubes dark yellow - Neurological Exam Neurological exam: Alert, Oriented x 3 Laboratory Results - last 72 hr 03/25/18 03/26/18 03/26/18 17:20 05:04 11:22 WBC RBC Hgb Hct MCV MCH MCHC RDW Plt Count MPV Neut % (Auto) Lymph % (Auto) [place] % (Auto) Eos % (Auto) Baso % (Auto) Neut # (Auto) Lymph # (Auto) [place] # (Auto) Eos # (Auto) Baso # (Auto) Sodium Potassium Chloride Carbon Dioxide Anion Gap BUN Creatinine Est GFR ( Amer) Est GFR (Non-Af Amer) POC Glucose (mg/dL) 123 H 113 H 146 H Random Glucose Calcium Magnesium Total Bilirubin AST ALT Alkaline Phosphatase Total Protein Albumin Globulin Albumin/Globulin Ratio 03/26/18 03/26/18 03/26/18 16:56 17:31 19:01 WBC RBC Hgb Hct MCV MCH MCHC RDW Plt Count MPV Neut % (Auto) Lymph % (Auto) [place] % (Auto) Eos % (Auto) Baso % (Auto) Neut # (Auto) Lymph # (Auto) [place] # (Auto) Eos # (Auto) Baso # (Auto) Sodium Potassium Chloride Carbon Dioxide Anion Gap BUN Creatinine Est GFR ( Amer) Est GFR (Non-Af Amer) POC Glucose (mg/dL) 53 L 53 L 76 Random Glucose Calcium Magnesium Total Bilirubin AST ALT Alkaline Phosphatase Total Protein Albumin Globulin Albumin/Globulin Ratio 03/26/18 03/26/18 03/26/18 21:05 21:34 22:40 WBC RBC Hgb Hct MCV MCH MCHC RDW Plt Count MPV Neut % (Auto) Lymph % (Auto) [place] % (Auto) Eos % (Auto) Baso % (Auto) Neut # (Auto) Lymph # (Auto) [place] # (Auto) Eos # (Auto) Baso # (Auto) Sodium Potassium Chloride Carbon Dioxide Anion Gap BUN Creatinine Est GFR ( Amer) Est GFR (Non-Af Amer) POC Glucose (mg/dL) 50 L 46 L 69 Random Glucose Calcium Magnesium Total Bilirubin AST ALT Alkaline Phosphatase Total Protein Albumin Globulin Albumin/Globulin Ratio 03/27/18 03/27/18 03/27/18 01:39 03:16 04:42 WBC RBC Hgb Hct MCV MCH MCHC RDW Plt Count MPV Neut % (Auto) Lymph % (Auto) [place] % (Auto) Eos % (Auto) Baso % (Auto) Neut # (Auto) Lymph # (Auto) [place] # (Auto) Eos # (Auto) Baso # (Auto) Sodium Potassium Chloride Carbon Dioxide Anion Gap BUN Creatinine Est GFR ( Amer) Est GFR (Non-Af Amer) POC Glucose (mg/dL) 54 L 70 50 L Random Glucose Calcium Magnesium Total Bilirubin AST ALT Alkaline Phosphatase Total Protein Albumin Globulin Albumin/Globulin Ratio 03/27/18 03/27/18 03/27/18 05:34 07:49 10:40 WBC RBC Hgb Hct MCV MCH MCHC RDW Plt Count MPV Neut % (Auto) Lymph % (Auto) [place] % (Auto) Eos % (Auto) Baso % (Auto) Neut # (Auto) Lymph # (Auto) [place] # (Auto) Eos # (Auto) Baso # (Auto) Sodium Potassium Chloride Carbon Dioxide Anion Gap BUN Creatinine Est GFR ( Amer) Est GFR (Non-Af Amer) POC Glucose (mg/dL) 102 108 91 Random Glucose Calcium Magnesium Total Bilirubin AST ALT Alkaline Phosphatase Total Protein Albumin Globulin Albumin/Globulin Ratio 03/27/18 03/27/18 03/27/18 10:40 15:09 15:09 WBC 1.6 L* RBC 2.85 L Hgb 8.6 L Hct 25.3 L MCV 88.8 MCH 30.2 MCHC 34.0 RDW 15.8 H Plt Count 98 L D MPV 6.6 L Neut % (Auto) 63.4 Lymph % (Auto) 27.0 [place] % (Auto) 7.7 Eos % (Auto) 1.2 Baso % (Auto) 0.7 Neut # (Auto) 1.0 L Lymph # (Auto) 0.4 L [place] # (Auto) 0.1 Eos # (Auto) 0.0 Baso # (Auto) 0.0 Sodium 140 Potassium 4.3 Chloride 110 H Carbon Dioxide 19 L Anion Gap 15 BUN 10 Creatinine 1.0 Est GFR ( Amer) > 60 Est GFR (Non-Af Amer) > 60 POC Glucose (mg/dL) 91 Random Glucose 120 H Calcium 7.9 L Magnesium 1.8 Total Bilirubin 0.3 AST 68 H ALT 80 H D Alkaline Phosphatase 906 H D Total Protein 5.8 L Albumin 2.8 L Globulin 3.0 Albumin/Globulin Ratio 0.9 L 03/27/18 03/27/18 03/27/18 15:56 21:27 23:32 WBC RBC Hgb Hct MCV MCH MCHC RDW Plt Count MPV Neut % (Auto) Lymph % (Auto) [place] % (Auto) Eos % (Auto) Baso % (Auto) Neut # (Auto) Lymph # (Auto) [place] # (Auto) Eos # (Auto) Baso # (Auto) Sodium Potassium Chloride Carbon Dioxide Anion Gap BUN Creatinine Est GFR ( Amer) Est GFR (Non-Af Amer) POC Glucose (mg/dL) 109 126 H 131 H Random Glucose Calcium Magnesium Total Bilirubin AST ALT Alkaline Phosphatase Total Protein Albumin Globulin Albumin/Globulin Ratio 03/28/18 03/28/18 03/28/18 05:56 11:16 16:46 WBC RBC Hgb Hct MCV MCH MCHC RDW Plt Count MPV Neut % (Auto) Lymph % (Auto) [place] % (Auto) Eos % (Auto) Baso % (Auto) Neut # (Auto) Lymph # (Auto) [place] # (Auto) Eos # (Auto) Baso # (Auto) Sodium Potassium Chloride Carbon Dioxide Anion Gap BUN Creatinine Est GFR ( Amer) Est GFR (Non-Af Amer) POC Glucose (mg/dL) 140 H 153 H 131 H Random Glucose Calcium Magnesium Total Bilirubin AST ALT Alkaline Phosphatase Total Protein Albumin Globulin Albumin/Globulin Ratio Microbiology 03/25/18 12:24 Blood Blood Culture - Preliminary NO GROWTH AFTER 3 DAYS 03/25/18 13:15 Urine,Veliz Urine Culture - Final Staphylococcus Aureus 03/25/18 13:45 Back Gram Stain - Final 03/25/18 13:45 Back Wound Culture - Final Staphylococcus Aureus Corynebacterium Species Assessment and Plan (1) Bladder cancer Status: Acute (2) Back pain Status: Acute (3) Pyelonephritis Status: Acute (4) UTI (urinary tract infection) Status: Acute (5) Leukopenia Status: Acute - Assessment and Plan (Free Text) Assessment: A/P- 78 year old male with DM II, bladder cancer with bone sto mets s/p b/l nephrostomy tubes for past 4 months admitted with low back pian and discharge noted around nephrostomy tubes. afebrile leukopenia but not neutropenic initial UA- positive urine cx- MSSA fluid from around nephro site cx- MSSA and corynebacterium blood cx- neg x 1 ct abdomen /pelvis rport noted. PLan- advise to start pt. on IV vancomycin for mssa and corynebacterium UTI. day #3 no mention of any fluid collection around the nephrostomy tubes on ct report, no hydro as per report. keep vanco trough 10-15. monitor wbc and ANC closely. and ONC f/u. check another UA . All above d/w patient and his son who is at bedside.
--- NOTE | 2018-03-28 13:58 | CARD ---
APPROVED REPORT Date of service: 03/25/2018 EKG Measurement Heart [id number] <Conclusion> Normal sinus rhythm Normal ECG
--- NOTE | 2018-03-28 23:06 | CP.PCM.PN ---
Subjective - Date & Time of Evaluation Date of Evaluation: 03/28/18 Time of Evaluation: 12:15 Objective - Vital Signs/Intake and Output Vital Signs (last 24 hours): Temp Pulse Resp BP Pulse Ox 98.8 F 89 19 155/64 H 98 03/28/18 19:53 03/28/18 19:53 03/28/18 19:53 03/28/18 19:53 03/28/18 19:53 - Medications Medications: Current Medications Dextrose (Glutose 15) 15 gm PO PRN PRN PRN Reason: Hypoglycemia Last Admin: 03/27/18 05:14 Dose: 15 gm Enoxaparin Sodium (Lovenox) 40 mg SC DAILY MIKE PRN Reason: Protocol Last Admin: 03/27/18 08:58 Dose: 40 mg Hydromorphone HCl (Dilaudid) 2 mg IVP Q4 PRN PRN Reason: Pain, severe (8-10) Last Admin: 03/28/18 20:44 Dose: 2 mg Sodium Chloride (Sodium Chloride 0.9%) 1,000 mls @ 1,000 mls/hr IV .Q1H MIKE Last Admin: 03/26/18 04:46 Dose: 1,000 mls/hr Vancomycin HCl 1 gm/ Sodium (Chloride) 250 mls @ 166.667 mls/hr IVPB Q12 MIKE PRN Reason: Protocol Last Admin: 03/28/18 20:42 Dose: 166.667 mls/hr Morphine Sulfate (Morphine) 2 mg IVP Q6 PRN PRN Reason: Pain, moderate (4-7) Last Admin: 03/27/18 15:22 Dose: 2 mg Tamsulosin HCl (Flomax) 0.4 mg PO HS MIKE Last Admin: 03/28/18 22:27 Dose: 0.4 mg - Labs Labs: 03/27/18 15:09 03/27/18 15:09 PT 13.8 Seconds (9.8-13.1) H 03/25/18 12:24 INR 1.2 (0.9-1.2) 03/25/18 12:24 APTT 27.7 Seconds (25.6-37.1) 03/25/18 12:24 Assessment and Plan (1) Altered mental status Status: Acute (2) Acute pyelonephritis Status: Acute (3) Obstructive uropathy Status: Acute (4) Pancytopenia due to antineoplastic chemotherapy Status: Acute
[2018-03-29] MEDS: HYDROmorphone 1 mg/ml ISec IVP PRN ×4 (01:33→19:53)
[2018-03-29 03:57] LABS: URINE BACTERIA RARE (<OCC); URINE BILIRUBIN NEGATIVE (NEGATIVE); URINE BLOOD MODERATE (NEGATIVE); URINE CLARITY SLIGHTY-CLOUDY (Clear); URINE COLOR STRAW (YELLOW); URINE GLUCOSE (UA) NEG (Normal); URINE LEUKOCYTE ESTERASE LARGE Leu/uL (Negative); URINE PROTEIN 30 mg/dL (NEGATIVE); URINE UROBILINOGEN 0.2-1.0 mg/dL (0.2-1.0)
[2018-03-29 06:27] LABS: ALBUMIN 2.8 g/dL (3.5-5.0); ALT/SGPT 77 U/L (21-72); AST/SGOT 52 U/L (17-59); BLOOD UREA NITROGEN 8 mg/dl (9-20); CALCIUM 8.2 mg/dL (8.4-10.2); GFR AFRICAN-AMERICAN > 60; GFR NON-AFRICAN AMERICAN > 60
[2018-03-29 06:47] LABS: BASO % 0.7 % (0.0-2.0); EOS % 1.2 % (0.0-4.0); HEMOGLOBIN 8.7 g/dL (12.0-18.0); LYMPH # 0.7 K/uL (1.0-4.3); LYMPH % 22.8 % (20.0-40.0); MEAN CELL VOLUME 88.2 fl (80.0-94.0); MEAN PLATELET VOLUME 6.5 fl (7.2-11.7); MONO # 0.4 K/uL (0.0-0.8); NEUT # 1.9 K/uL (1.8-7.0); NEUT % 62.3 % (50.0-75.0); RBC 2.9 Mil/uL (4.40-5.90); RED CELL DISTRIBUTION WIDTH 15.6 % (11.5-14.5); WHITE BLOOD COUNT 3.1 K/uL (4.8-10.8)
[2018-03-29] MEDS ORDERED: Iodixanol 320 MG/ML 100 ML BOTTLE IV ONE (10:34)
[2018-03-29] MEDS ORDERED: Midazolam 2 MG/2 ML VIAL ONE (11:09)
[2018-03-29] MEDS ORDERED: LIDOCAINE 2% 10ML 20 MG/ML VIAL IJ ONE (11:18)
--- NOTE | 2018-03-29 11:42 | PCM.SURG1 ---
Surgeon's Initial Post Op Note - Surgeon's Notes Surgeon: Jus Scott MD [employer] Manager: NONE Type of Anesthesia: IV Sedation Pre-Operative Diagnosis: Hydronephrosis Operative Findings: Bilateral nephrostogram showed moderate hydronephrosis. Existing PCN were partially clogged. Right PCN is malpositioned. Post-Operative Diagnosis: Hydronephrosis Operation Performed: Bilateral PCN change. New 8 fr PCN placed. Specimen/Specimens Removed: NONE Estimated Blood Loss: EBL {In ML}: 2 Blood Products Given: N/A Drains Used: No Drains Post-Op Condition: Fair Date of Surgery/Procedure: 03/29/18 Time of Surgery/Procedure: 11:40
[2018-03-29 11:47] LABS: GAMMA GLUTAMYL TRANSPEPTIDASE 182 U/L (8-78)
--- NOTE | 2018-03-29 19:49 | CP.PCM.PN ---
Subjective - Date & Time of Evaluation Date of Evaluation: 03/29/18 Time of Evaluation: 03:10 - Subjective Subjective: Seen and examined at the bed side. Going for Nephrostomy Tube exchange. Continue to Have Hematuria from the right Nephrostomy site. Objective - Vital Signs/Intake and Output Vital Signs (last 24 hours): Temp Pulse Resp BP Pulse Ox 98.3 F 82 16 130/55 L 99 03/29/18 15:50 03/29/18 15:50 03/29/18 15:50 03/29/18 15:50 03/29/18 15:50 Intake and Output: 03/29/18 03/30/18 18:59 06:59 Output Total 350 Balance -350 - Medications Medications: Current Medications Dextrose (Glutose 15) 15 gm PO PRN PRN PRN Reason: Hypoglycemia Last Admin: 03/27/18 05:14 Dose: 15 gm Enoxaparin Sodium (Lovenox) 40 mg SC DAILY MIKE PRN Reason: Protocol Last Admin: 03/27/18 08:58 Dose: 40 mg Hydromorphone HCl (Dilaudid) 2 mg IVP Q4 PRN PRN Reason: Pain, severe (8-10) Last Admin: 03/29/18 14:58 Dose: 2 mg Sodium Chloride (Sodium Chloride 0.9%) 1,000 mls @ 1,000 mls/hr IV .Q1H MIKE Last Admin: 03/26/18 04:46 Dose: 1,000 mls/hr Vancomycin HCl 1 gm/ Sodium (Chloride) 250 mls @ 166.667 mls/hr IVPB Q12 MIKE PRN Reason: Protocol Last Admin: 03/29/18 09:36 Dose: 166.667 mls/hr Morphine Sulfate (Morphine) 2 mg IVP Q6 PRN PRN Reason: Pain, moderate (4-7) Last Admin: 03/27/18 15:22 Dose: 2 mg Tamsulosin HCl (Flomax) 0.4 mg PO HS MIKE Last Admin: 03/28/18 22:27 Dose: 0.4 mg - Labs Labs: 03/29/18 05:30 03/29/18 05:05 PT 13.8 Seconds (9.8-13.1) H 03/25/18 12:24 INR 1.2 (0.9-1.2) 03/25/18 12:24 APTT 27.7 Seconds (25.6-37.1) 03/25/18 12:24 Assessment and Plan (1) Altered mental status Status: Acute (2) Acute pyelonephritis Status: Acute (3) Obstructive uropathy Status: Acute (4) Pancytopenia due to antineoplastic chemotherapy Status: Acute
[2018-03-30] MEDS: HYDROmorphone 1 mg/ml ISec IVP PRN ×2 (02:22→10:20)
--- NOTE | 2018-03-30 10:01 | CP.PCM.PN ---
Subjective - Date & Time of Evaluation Date of Evaluation: 03/30/18 Time of Evaluation: 11:55 - Subjective Subjective: ID note- Pt. seen and examined today. pt. s/p b/l nephrostomy tube change yesterday. he denies any feve ror chills. states at first the urine collected in his nephro bags were fall color but they are now clear and yellow. Objective - Vital Signs/Intake and Output Vital Signs (last 24 hours): Temp Pulse Resp BP Pulse Ox 98.3 F 81 20 135/64 96 03/30/18 07:56 03/30/18 07:56 03/30/18 07:56 03/30/18 07:56 03/30/18 07:56 Intake and Output: 03/30/18 03/30/18 06:59 18:59 Intake Total 550 Output Total 1570 Balance -1020 - Medications Medications: Current Medications Dextrose (Glutose 15) 15 gm PO PRN PRN PRN Reason: Hypoglycemia Last Admin: 03/27/18 05:14 Dose: 15 gm Enoxaparin Sodium (Lovenox) 40 mg SC DAILY MIKE PRN Reason: Protocol Last Admin: 03/27/18 08:58 Dose: 40 mg Hydromorphone HCl (Dilaudid) 2 mg IVP Q4 PRN PRN Reason: Pain, severe (8-10) Last Admin: 03/30/18 02:22 Dose: 2 mg Sodium Chloride (Sodium Chloride 0.9%) 1,000 mls @ 1,000 mls/hr IV .Q1H MIKE Last Admin: 03/26/18 04:46 Dose: 1,000 mls/hr Vancomycin HCl 1 gm/ Sodium (Chloride) 250 mls @ 166.667 mls/hr IVPB Q12 MIKE PRN Reason: Protocol Last Admin: 03/29/18 19:59 Dose: 166.667 mls/hr Morphine Sulfate (Morphine) 2 mg IVP Q6 PRN PRN Reason: Pain, moderate (4-7) Last Admin: 03/30/18 06:08 Dose: 2 mg Tamsulosin HCl (Flomax) 0.4 mg PO HS MIKE Last Admin: 03/29/18 21:00 Dose: 0.4 mg - Labs Labs: - Additional Findings Additional findings: Constitutional Appears: No Acute Distress - Head Exam Head Exam: ATRAUMATIC - Eye Exam Eye Exam: EOMI, PERRL - ENT Exam Additional comments: dry oral mucosa - Neck Exam Neck exam: Positive for: Full Rom Additional comments: supple - Respiratory Exam Respiratory Exam: Clear to Auscultation Bilateral, NORMAL BREATHING PATTERN - Cardiovascular Exam Cardiovascular Exam: RRR, +S1, +S2 Additional comments: right chest port in place. no erythema / no discharge - GI/Abdominal Exam GI & Abdominal Exam: Normal Bowel Sounds, Soft Additional comments: NT, ND - Extremities Exam Additional comments: no edema b/l LE dry skin changes - Back Exam Additional comments: b/l nephrostomy tubes present no discharge seen today on the dressing, no surrounding erythema or swelling urine collected in b/l bags yellow and not dark - Neurological Exam Neurological exam: Alert, Oriented x 3 Laboratory Results - last 72 hr 03/27/18 03/27/18 03/27/18 10:40 10:40 15:09 WBC 1.6 L* RBC 2.85 L Hgb 8.6 L Hct 25.3 L MCV 88.8 MCH 30.2 MCHC 34.0 RDW 15.8 H Plt Count 98 L D MPV 6.6 L Neut % (Auto) 63.4 Lymph % (Auto) 27.0 [place] % (Auto) 7.7 Eos % (Auto) 1.2 Baso % (Auto) 0.7 Neut # (Auto) 1.0 L Lymph # (Auto) 0.4 L [place] # (Auto) 0.1 Eos # (Auto) 0.0 Baso # (Auto) 0.0 Sodium Potassium Chloride Carbon Dioxide Anion Gap BUN Creatinine Est GFR ( Amer) Est GFR (Non-Af Amer) POC Glucose (mg/dL) 91 91 Random Glucose Calcium Magnesium Total Bilirubin GGT AST ALT Alkaline Phosphatase Total Protein Albumin Globulin Albumin/Globulin Ratio Urine Color Urine Clarity Urine pH Ur Specific [place] Urine Protein Urine Glucose (UA) Urine Ketones Urine Blood Urine Nitrate Urine Bilirubin Urine Urobilinogen Ur Leukocyte Esterase Urine RBC (Auto) Urine Microscopic WBC Urine Bacteria Vancomycin Trough 03/27/18 03/27/18 03/27/18 15:09 15:56 21:27 WBC RBC Hgb Hct MCV MCH MCHC RDW Plt Count MPV Neut % (Auto) Lymph % (Auto) [place] % (Auto) Eos % (Auto) Baso % (Auto) Neut # (Auto) Lymph # (Auto) [place] # (Auto) Eos # (Auto) Baso # (Auto) Sodium 140 Potassium 4.3 Chloride 110 H Carbon Dioxide 19 L Anion Gap 15 BUN 10 Creatinine 1.0 Est GFR ( Amer) > 60 Est GFR (Non-Af Amer) > 60 POC Glucose (mg/dL) 109 126 H Random Glucose 120 H Calcium 7.9 L Magnesium 1.8 Total Bilirubin 0.3 GGT AST 68 H ALT 80 H D Alkaline Phosphatase 906 H D Total Protein 5.8 L Albumin 2.8 L Globulin 3.0 Albumin/Globulin Ratio 0.9 L Urine Color Urine Clarity Urine pH Ur Specific [place] Urine Protein Urine Glucose (UA) Urine Ketones Urine Blood Urine Nitrate Urine Bilirubin Urine Urobilinogen Ur Leukocyte Esterase Urine RBC (Auto) Urine Microscopic WBC Urine Bacteria Vancomycin Trough 03/27/18 03/28/18 03/28/18 23:32 05:56 11:16 WBC RBC Hgb Hct MCV MCH MCHC RDW Plt Count MPV Neut % (Auto) Lymph % (Auto) [place] % (Auto) Eos % (Auto) Baso % (Auto) Neut # (Auto) Lymph # (Auto) [place] # (Auto) Eos # (Auto) Baso # (Auto) Sodium Potassium Chloride Carbon Dioxide Anion Gap BUN Creatinine Est GFR ( Amer) Est GFR (Non-Af Amer) POC Glucose (mg/dL) 131 H 140 H 153 H Random Glucose Calcium Magnesium Total Bilirubin GGT AST ALT Alkaline Phosphatase Total Protein Albumin Globulin Albumin/Globulin Ratio Urine Color Urine Clarity Urine pH Ur Specific [place] Urine Protein Urine Glucose (UA) Urine Ketones Urine Blood Urine Nitrate Urine Bilirubin Urine Urobilinogen Ur Leukocyte Esterase Urine RBC (Auto) Urine Microscopic WBC Urine Bacteria Vancomycin Trough 03/28/18 03/28/18 03/29/18 16:46 21:29 03:00 WBC RBC Hgb Hct MCV MCH MCHC RDW Plt Count MPV Neut % (Auto) Lymph % (Auto) [place] % (Auto) Eos % (Auto) Baso % (Auto) Neut # (Auto) Lymph # (Auto) [place] # (Auto) Eos # (Auto) Baso # (Auto) Sodium Potassium Chloride Carbon Dioxide Anion Gap BUN Creatinine Est GFR ( Amer) Est GFR (Non-Af Amer) POC Glucose (mg/dL) 131 H 100 Random Glucose Calcium Magnesium Total Bilirubin GGT AST ALT Alkaline Phosphatase Total Protein Albumin Globulin Albumin/Globulin Ratio Urine Color Straw Urine Clarity Slighty-cloudy Urine pH 6.0 Ur Specific [place] < 1.005 Urine Protein 30 Urine Glucose (UA) Neg Urine Ketones Negative Urine Blood Moderate Urine Nitrate Negative Urine Bilirubin Negative Urine Urobilinogen 0.2-1.0 Ur Leukocyte Esterase Large Urine RBC (Auto) 3 Urine Microscopic WBC 28 H Urine Bacteria Rare Vancomycin Trough 03/29/18 03/29/18 03/29/18 05:05 05:30 05:30 WBC 3.1 L D RBC 2.90 L Hgb 8.7 L Hct 25.6 L MCV 88.2 MCH 30.0 MCHC 34.0 RDW 15.6 H Plt Count 74 L D MPV 6.5 L Neut % (Auto) 62.3 Lymph % (Auto) 22.8 [place] % (Auto) 13.0 H Eos % (Auto) 1.2 Baso % (Auto) 0.7 Neut # (Auto) 1.9 Lymph # (Auto) 0.7 L [place] # (Auto) 0.4 Eos # (Auto) 0.0 Baso # (Auto) 0.0 Sodium 140 Potassium 4.5 Chloride 110 H Carbon Dioxide 21 L Anion Gap 14 BUN 8 L Creatinine 1.1 Est GFR ( Amer) > 60 Est GFR (Non-Af Amer) > 60 POC Glucose (mg/dL) Random Glucose 117 H Calcium 8.2 L Magnesium Total Bilirubin 0.3 GGT 182 H AST 52 ALT 77 H Alkaline Phosphatase 948 H Total Protein 5.7 L Albumin 2.8 L Globulin 2.9 Albumin/Globulin Ratio 1.0 Urine Color Urine Clarity Urine pH Ur Specific [place] Urine Protein Urine Glucose (UA) Urine Ketones Urine Blood Urine Nitrate Urine Bilirubin Urine Urobilinogen Ur Leukocyte Esterase Urine RBC (Auto) Urine Microscopic WBC Urine Bacteria Vancomycin Trough 20.2 H 03/29/18 03/29/18 03/29/18 05:31 12:45 16:04 WBC RBC Hgb Hct MCV MCH MCHC RDW Plt Count MPV Neut % (Auto) Lymph % (Auto) [place] % (Auto) Eos % (Auto) Baso % (Auto) Neut # (Auto) Lymph # (Auto) [place] # (Auto) Eos # (Auto) Baso # (Auto) Sodium Potassium Chloride Carbon Dioxide Anion Gap BUN Creatinine Est GFR ( Amer) Est GFR (Non-Af Amer) POC Glucose (mg/dL) 130 H 103 151 H Random Glucose Calcium Magnesium Total Bilirubin GGT AST ALT Alkaline Phosphatase Total Protein Albumin Globulin Albumin/Globulin Ratio Urine Color Urine Clarity Urine pH Ur Specific [place] Urine Protein Urine Glucose (UA) Urine Ketones Urine Blood Urine Nitrate Urine Bilirubin Urine Urobilinogen Ur Leukocyte Esterase Urine RBC (Auto) Urine Microscopic WBC Urine Bacteria Vancomycin Trough 03/29/18 20:00 WBC RBC Hgb Hct MCV MCH MCHC RDW Plt Count MPV Neut % (Auto) Lymph % (Auto) [place] % (Auto) Eos % (Auto) Baso % (Auto) Neut # (Auto) Lymph # (Auto) [place] # (Auto) Eos # (Auto) Baso # (Auto) Sodium Potassium Chloride Carbon Dioxide Anion Gap BUN Creatinine Est GFR ( Amer) Est GFR (Non-Af Amer) POC Glucose (mg/dL) Random Glucose Calcium Magnesium Total Bilirubin GGT AST ALT Alkaline Phosphatase Total Protein Albumin Globulin Albumin/Globulin Ratio Urine Color Urine Clarity Urine pH Ur Specific [place] Urine Protein Urine Glucose (UA) Urine Ketones Urine Blood Urine Nitrate Urine Bilirubin Urine Urobilinogen Ur Leukocyte Esterase Urine RBC (Auto) Urine Microscopic WBC Urine Bacteria Vancomycin Trough 20.8 H Microbiology 03/25/18 12:24 Blood Blood Culture - Preliminary NO GROWTH AFTER 4 DAYS 03/25/18 13:15 Urine,Veliz Urine Culture - Final Staphylococcus Aureus 03/25/18 13:45 Back Gram Stain - Final 03/25/18 13:45 Back Wound Culture - Final Staphylococcus Aureus Corynebacterium Species Assessment and Plan (1) Bladder cancer Status: Acute (2) Back pain Status: Acute (3) Pyelonephritis Status: Acute (4) UTI (urinary tract infection) Status: Acute (5) Leukopenia Status: Acute - Assessment and Plan (Free Text) Assessment: A/P- 78 year old male with DM II, bladder cancer with bone sto mets s/p b/l nephrostomy tubes for past 4 months admitted with low back pian and discharge noted around nephrostomy tubes. s/p b/l nephrostomy tube change yesterday afebrile leukopenia much improved today initial UA- positive urine cx- MSSA fluid from around previous nephro site cx- MSSA and corynebacterium blood cx- neg x 1 repeat ua from 03/29/2018- negative for nitrate, still has LE but not cloudy and neg for nitrates hence has improved. Plan- continue pt. on IV vancomycin for mssa and corynebacterium UTI. day #5 keep vanco trough 10-15. advise 5 more days of IV vancomycin. monitor wbc and ANC closely. and ONC f/u. all above d/w patient and his son and they verbalize full understanding of all above and agree with above plan of care.
[2018-03-30 12:48] VITALS: RESP 18
--- NOTE | 2018-03-30 14:30 | CP.PCM.PCO ---
Assessment & Plan - Assessment and Plan (Free Text) Assessment: patient cleared for discharge to TCU today by and check Vanco trough tommorrow morning and start lower dose of Vanco 750 mg iv q12 only if trough less than 15- see med reconciliation instructions provided under med dose cont. Vancomycin for 5 more days as per monitor trough daily and keep between 10-15
[2018-03-30 16:23] VITALS: BP 133/62; PULSE 79; TEMP 98; O2SAT 99
--- NOTE | 2018-04-01 07:02 | CP.PCM.DIS ---
Provider - Provider Date of Admission: 03/25/18 14:56 Attending physician: Evan Swanson MD Time Spent in preparation of Discharge (in minutes): 25 Diagnosis - Discharge Diagnosis (1) Altered mental status Status: Acute Priority: High (2) Acute pyelonephritis Status: Acute Priority: High (3) Obstructive uropathy Status: Acute Priority: High (4) Pancytopenia due to antineoplastic chemotherapy Status: Acute Priority: Medium Hospital Course - Lab Results Lab Results: Micro Results 03/25/18 12:24 Blood Blood Culture - Final NO GROWTH AFTER 5 DAYS 03/25/18 13:15 Urine,Veliz Urine Culture - Final Staphylococcus Aureus 03/25/18 13:45 Back Gram Stain - Final 03/25/18 13:45 Back Wound Culture - Final Staphylococcus Aureus Corynebacterium Species Most Recent Lab Values WBC 3.1 K/uL (4.8-10.8) L D 03/29/18 05:30 RBC 2.90 Mil/uL (4.40-5.90) L 03/29/18 05:30 Hgb 8.7 g/dL (12.0-18.0) L 03/29/18 05:30 Hct 25.6 % (35.0-51.0) L 03/29/18 05:30 MCV 88.2 fl (80.0-94.0) 03/29/18 05:30 MCH 30.0 pg (27.0-31.0) 03/29/18 05:30 MCHC 34.0 g/dL (33.0-37.0) 03/29/18 05:30 RDW 15.6 % (11.5-14.5) H 03/29/18 05:30 Plt Count 74 K/uL (130-400) L D 03/29/18 05:30 MPV 6.5 fl (7.2-11.7) L 03/29/18 05:30 Neut % (Auto) 62.3 % (50.0-75.0) 03/29/18 05:30 Lymph % (Auto) 22.8 % (20.0-40.0) 03/29/18 05:30 [place] % (Auto) 13.0 % (0.0-10.0) H 03/29/18 05:30 Eos % (Auto) 1.2 % (0.0-4.0) 03/29/18 05:30 Baso % (Auto) 0.7 % (0.0-2.0) 03/29/18 05:30 Neut # (Auto) 1.9 K/uL (1.8-7.0) 03/29/18 05:30 Lymph # (Auto) 0.7 K/uL (1.0-4.3) L 03/29/18 05:30 [place] # (Auto) 0.4 K/uL (0.0-0.8) 03/29/18 05:30 Eos # (Auto) 0.0 K/uL (0.0-0.7) 03/29/18 05:30 Baso # (Auto) 0.0 K/uL (0.0-0.2) 03/29/18 05:30 PT 13.8 Seconds (9.8-13.1) H 03/25/18 12:24 INR 1.2 (0.9-1.2) 03/25/18 12:24 APTT 27.7 Seconds (25.6-37.1) 03/25/18 12:24 pO2 20 mm/Hg (30-55) L 03/25/18 12:13 VBG pH 7.45 (7.32-7.43) H 03/25/18 12:13 VBG pCO2 33 mmHg (40-60) L 03/25/18 12:13 VBG HCO3 22.9 mmol/L 03/25/18 12:13 VBG Total CO2 23.9 mmol/L (22-28) 03/25/18 12:13 VBG O2 Sat (Calc) 44.0 % (40-65) 03/25/18 12:13 VBG Base Excess -0.4 mmol/L (0.0-2.0) L 03/25/18 12:13 VBG Potassium 4.4 mmol/L (3.6-5.2) 03/25/18 12:13 Sodium 134.0 mmol/L (132-148) 03/25/18 12:13 Chloride 102.0 mmol/L (98-107) 03/25/18 12:13 Glucose 119 mg/dL (75-110) H 03/25/18 12:13 Lactate 1.2 mmol/L (0.7-2.1) 03/25/18 12:13 FiO2 21.0 % 03/25/18 12:13 Sodium 140 mmol/l (132-148) 03/29/18 05:05 Potassium 4.5 MMOL/L (3.6-5.0) 03/29/18 05:05 Chloride 110 mmol/L (98-107) H 03/29/18 05:05 Carbon Dioxide 21 mmol/L (22-30) L 03/29/18 05:05 Anion Gap 14 (10-20) 03/29/18 05:05 BUN 8 mg/dl (9-20) L 03/29/18 05:05 Creatinine 1.1 mg/dl (0.8-1.5) 03/29/18 05:05 Est GFR ( Amer) > 60 03/29/18 05:05 Est GFR (Non-Af Amer) > 60 03/29/18 05:05 POC Glucose (mg/dL) 106 mg/dL (65-110) 03/30/18 16:07 Random Glucose 117 mg/dL (75-110) H 03/29/18 05:05 Lactic Acid 0.6 MMOL/L (0.7-2.1) L 03/25/18 13:45 Calcium 8.2 mg/dL (8.4-10.2) L 03/29/18 05:05 Phosphorus 2.5 mg/dl (2.5-4.5) 03/25/18 12:24 Magnesium 1.8 MG/DL (1.6-2.3) 03/27/18 15:09 Total Bilirubin 0.3 mg/dl (0.2-1.3) 03/29/18 05:05 GGT 182 U/L (8-78) H 03/29/18 05:05 AST 52 U/L (17-59) 03/29/18 05:05 ALT 77 U/L (21-72) H 03/29/18 05:05 Alkaline Phosphatase 948 U/L (38-126) H 03/29/18 05:05 Troponin I 0.0210 ng/mL (0.00-0.120) 03/25/18 12:24 Total Protein 5.7 G/DL (6.3-8.2) L 03/29/18 05:05 Albumin 2.8 g/dL (3.5-5.0) L 03/29/18 05:05 Globulin 2.9 gm/dL (2.2-3.9) 03/29/18 05:05 Albumin/Globulin Ratio 1.0 (1.0-2.1) 03/29/18 05:05 Venous Blood Potassium 4.4 mmol/L (3.6-5.2) 03/25/18 12:13 Urine Color Straw (YELLOW) 03/29/18 03:00 Urine Clarity Slighty-cloudy (Clear) 03/29/18 03:00 Urine pH 6.0 (5.0-8.0) 03/29/18 03:00 Ur Specific [place] < 1.005 (1.003-1.030) 03/29/18 03:00 Urine Protein 30 mg/dL (NEGATIVE) 03/29/18 03:00 Urine Glucose (UA) Neg mg/dL (Normal) 03/29/18 03:00 Urine Ketones Negative mg/dL (NEGATIVE) 03/29/18 03:00 Urine Blood Moderate (NEGATIVE) 03/29/18 03:00 Urine Nitrate Negative (NEGATIVE) 03/29/18 03:00 Urine Bilirubin Negative (NEGATIVE) 03/29/18 03:00 Urine Urobilinogen 0.2-1.0 mg/dL (0.2-1.0) 03/29/18 03:00 Ur Leukocyte Esterase Large [place]/uL (Negative) 03/29/18 03:00 Urine RBC (Auto) 3 /hpf (0-3) 03/29/18 03:00 Urine WBC Clumps (Auto) Many /hpf (NONE) H 03/25/18 13:15 Urine Microscopic WBC 28 /hpf (0-5) H 03/29/18 03:00 Urine Bacteria Rare (<OCC) 03/29/18 03:00 Urine Yeast (Budding) Many /hpf (NEGATIVE) H 03/25/18 13:15 Vancomycin Trough 20.8 ug/mL (5.0-10.0) H 03/29/18 20:00 Discharge Exam - Head Exam Head Exam: ATRAUMATIC, NORMAL INSPECTION, NORMOCEPHALIC Discharge Plan - Discharge Medications Prescriptions: Vancomycin 750mg [Vancomycin 750 mg in NS] 750 mg IVPB Q12 #10 bag - Follow Up Plan Condition: FAIR Disposition: TRANSF TO SNF Instructions: Urinary Tract Infection in Women (DC), Urinary Tract Infection in Men (DC), Dysuria (GEN), Back Pain (GEN)
--- NOTE | 2018-04-06 12:03 | RAD ---
PROCEDURE: < Date of procedure: 03/29/2018 Procedure: 1. Right and left percutaneous nephrostogram, CPT 21278 2. Right and left percutaneous nephrostomy tube placement, CPT 69946 Medications: 2% Lidocaine 3 CC Contrast: 20 ml Visipaque Fluoro time: 112.1 seconds, Dose: 26.78 MGy HISTORY: Ureteral obstruction, hydronephrosis, renal failure TECHNIQUE: Following informed consent and procedure time-out, the patient was placed prone on the interventional table and the skin was marked. The lower back was prepped and draped in the usual sterile fashion. Contrast injected through right and left nephrostomy tube showed a partially displaced right nephrostomy tube. Is also moderate right hydronephrosis. Mild left hydronephrosis present. The existing nephrostomy tubes were removed over a guidewire and exchanged for a new 8 Belgian right and left nephrostomy tube formed within renal pelvis. The nephrostomy tubes were secured to patient's skin with Prolene sutures. Nephrostomy tube was secured to drainage bags. . IMPRESSION: Nephrostogram showed moderate left hydronephrosis and mild right hydronephrosis. Exchange of an 8 Belgian Right and left percutaneous nephrostomy tubes for new 8 Belgian right and Left percutaneous nephrostomy tubes.
== END 2018-03-30 20:00 | DRG 689 ==
LOC: H.ER 10:23 → H.ERHOLD 14:56 → H.TEL 03-26 00:26
PROVIDERS: ADMIT Internal Medicine; ATTEND Internal Medicine
PROC: 0T25X0Z Change Drainage Device in Kidney, External Approach (ICD-10-PCS; principal; 2018-03-29 11:00)
DX: N13.6 Pyonephrosis (principal); D61.810 Antineoplastic chemotherapy induced pancytopenia; G93.41 Metabolic encephalopathy; C79.51 Secondary malignant neoplasm of bone; C67.9 Malignant neoplasm of bladder, unspecified; B95.61 Methicillin susceptible Staphylococcus aureus infection as the cause of diseases classified elsewhere; E86.0 Dehydration; T45.1X5A Adverse effect of antineoplastic and immunosuppressive drugs, initial encounter; E11.9 Type 2 diabetes mellitus without complications; Z90.5 Acquired absence of kidney; Z79.84 Long term (current) use of oral hypoglycemic drugs; Z87.891 Personal history of nicotine dependence; Z88.6 Allergy status to analgesic agent

== ENCOUNTER 2018-03-30 18:14 | Inpatient (IN) | payer MEDICARE ==
[2018-03-30 20:05] VITALS: BMI 23.8
[2018-03-30] MEDS ORDERED: oxyCODONE 5 mg Immediate Release Tab PO PRN (20:33)
[2018-03-30] MEDS: oxyCODONE 5 mg Immediate Release Tab PO PRN (20:59)
[2018-03-30 21:49] VITALS: RESP 20
[2018-03-31] MEDS: oxyCODONE 5 mg Immediate Release Tab PO PRN ×3 (01:18→22:15)
--- NOTE | 2018-03-31 12:18 | CP.PCM.CON ---
History of Present Illness - History of Present Illness History of Present Illness: Infectious Disease Consultation Note- Patietn known to me from his recent admission in tele floor . HPI- 78 year old male with DM II, bladder cancer with bone mets s/p b/l nephrostomy tubes for past 4 months who was admitted with low back pain and discharge noted around nephrostomy tubes and was found to have UTI and infected nephrostomy tubes and the urine cx and the fluid from the nephrostomy tube sites on admission grew MSSA and corynebacterium and pt. has been on IV vancomycin and doing well on thsi regimen and his b/l nephrostomy tubes were replaced 2 days ago and now pt. is transferred to TCU to complete his IV antibiotic treatment and to get PT. Review of Systems - Review of Systems Review of Systems: ROS- denies any fever or chills, denies any cough, denies any sob, denies anyc het pain, denies any abd. pain, denies any nausea or vomiting, denies any diarrhea, no more pain in lower back. c/l his b/l LE skin darkening and very dry skin.denies any pain in LE . Past Patient History - Infectious Disease Hx of Infectious Diseases: None - Past Medical History & Family History Past Medical History?: Yes - Past Social History Smoking Status: Former Smoker Home Situation {Lives}: With Family - CARDIAC Hx Cardiac Disorders: Yes Hx Peripheral Edema: Yes (BLE) - PULMONARY Hx Respiratory Disorders: No - NEUROLOGICAL Hx Neurological Disorder: No - HEENT Hx HEENT Problems: No - RENAL Hx Neurogenic Bladder: Yes - ENDOCRINE/METABOLIC Hx Endocrine Disorders: Yes Hx Diabetes Mellitus Type 2: Yes - HEMATOLOGICAL/ONCOLOGICAL Hx Blood Disorders: Yes Hx Anemia: Yes - INTEGUMENTARY Hx Dermatological Problems: No - MUSCULOSKELETAL/RHEUMATOLOGICAL Hx Falls: No - GASTROINTESTINAL Other/Comment: TURBT - GENITOURINARY/GYNECOLOGICAL Hx Genitourinary Disorders: Yes Hx Bladder Cancer: Yes - PSYCHIATRIC Hx Psychophysiologic Disorder: Yes Hx Depression: Yes Hx Substance Use: No - SURGICAL HISTORY Hx Surgeries: Yes Hx Herniorrhaphy: Yes (> 20 YRS AGO) Other/Comment: Hx TURBT with 07/2017. Hx cystoscopy - Transurethral resection of bladder tumor 12/06/17. Hx Bilateral Nephrostomy tube excharge 03/30. Right portacath - ANESTHESIA Hx Anesthesia: Yes Hx Anesthesia Reactions: No Hx Malignant Hyperthermia: No Meds Allergies/Adverse Reactions: Allergies Allergy/AdvReac Type Severity Reaction Status Date / Time aspirin Allergy DIZZINESS Verified 03/23/18 07:50 - Medications Medications: Current Medications Vancomycin HCl 750 mg/ Sodium (Chloride) 250 mls @ 166.667 mls/hr IVPB Q12@0500 ,1700 [facility] PRN Reason: Protocol Oxycodone HCl (Oxycodone Immediate Release Tab) 15 mg PO Q4H PRN PRN Reason: Pain, severe (8-10) Last Admin: 03/31/18 12:05 Dose: 15 mg Tamsulosin HCl (Flomax) 0.4 mg PO HS [facility] Last Admin: 03/30/18 21:00 Dose: 0.4 mg Physical Exam - Constitutional Appears: No Acute Distress - Head Exam Head Exam: ATRAUMATIC - Eye Exam Eye Exam: EOMI - ENT Exam ENT Exam: Normal Oropharynx - Neck Exam Neck exam: Positive for: Full Rom - Respiratory Exam Respiratory Exam: Clear to Auscultation Bilateral, NORMAL BREATHING PATTERN - Cardiovascular Exam Cardiovascular Exam: RRR, +S1, +S2 - GI/Abdominal Exam GI & Abdominal Exam: Normal Bowel Sounds, Soft Additional comments: NT, ND - Extremities Exam Additional comments: b/l le with dark skin discoloration and dry skin changes c/w venous insufficiency - Back Exam Additional comments: b/l nephrostomy tubes in place, no discharge around the site, no erythema urine in b/l urine colection bags from the b/l nephro tubes clear and yellow - Neurological Exam Neurological exam: Alert, Oriented x3 Results - Vital Signs Recent Vital Signs: Last Vital Signs Temp 97.9 F 03/31/18 08:23 Pulse 87 03/31/18 08:23 Resp 20 03/31/18 08:23 BP 146/76 03/31/18 08:23 Pulse Ox 99 03/31/18 08:23 - Labs Labs: Laboratory Results - last 24 hr 03/30/18 03/31/18 03/31/18 20:58 05:15 06:10 POC Glucose (mg/dL) 132 H 88 Vancomycin Trough 15.6 H Microbiology 03/25/18 13:45 Back Gram Stain - Final 03/25/18 13:45 Back Wound Culture - Final Staphylococcus Aureus Corynebacterium Species 03/25/18 13:15 Urine,Veliz Urine Culture - Final Staphylococcus Aureus 03/25/18 12:24 Blood Blood Culture - Final NO GROWTH AFTER 5 DAYS Assessment & Plan (1) Acute pyelonephritis Status: Acute Priority: High - Assessment and Plan (Free Text) Assessment: s/p b/l nephrostomy tube change yesterday afebrile leukopenia much improved today initial UA- positive urine cx- MSSA fluid from around previous nephro site cx- MSSA and corynebacterium blood cx- neg x 1 repeat ua from 03/29/2018- negative for nitrate, still has LE but not cloudy and neg for nitrates hence has improved. Plan- continue pt. on IV vancomycin for mssa and corynebacterium UTI. day #6 trogh slightly elevated , advised nurse to hold am dose but can resume pm dose. check trough in am . keep vanco trough 10-15. advise 4 more days of IV vancomycin. monitor wbc and ANC closely. and ONC f/u.
[2018-04-01] MEDS: oxyCODONE 5 mg Immediate Release Tab PO PRN ×3 (04:10→21:15)
--- NOTE | 2018-04-01 07:48 | CP.PCM.HP ---
Past Patient History - Infectious Disease Hx of Infectious Diseases: None - Past Medical History & Family History Past Medical History?: Yes - Past Social History Smoking Status: Former Smoker Home Situation {Lives}: With Family - CARDIAC Hx Cardiac Disorders: Yes Hx Peripheral Edema: Yes (BLE) - PULMONARY Hx Respiratory Disorders: No - NEUROLOGICAL Hx Neurological Disorder: No - HEENT Hx HEENT Problems: No - RENAL Hx Neurogenic Bladder: Yes - ENDOCRINE/METABOLIC Hx Endocrine Disorders: Yes Hx Diabetes Mellitus Type 2: Yes - HEMATOLOGICAL/ONCOLOGICAL Hx Blood Disorders: Yes Hx Anemia: Yes - INTEGUMENTARY Hx Dermatological Problems: No - MUSCULOSKELETAL/RHEUMATOLOGICAL Hx Falls: No - GASTROINTESTINAL Other/Comment: TURBT - GENITOURINARY/GYNECOLOGICAL Hx Genitourinary Disorders: Yes Hx Bladder Cancer: Yes - PSYCHIATRIC Hx Psychophysiologic Disorder: Yes Hx Depression: Yes Hx Substance Use: No - SURGICAL HISTORY Hx Surgeries: Yes Hx Herniorrhaphy: Yes (> 20 YRS AGO) Other/Comment: Hx TURBT with 07/2017. Hx cystoscopy - Transurethral resection of bladder tumor 12/06/17. Hx Bilateral Nephrostomy tube excharge 03/30. Right portacath - ANESTHESIA Hx Anesthesia: Yes Hx Anesthesia Reactions: No Hx Malignant Hyperthermia: No Meds Allergies/Adverse Reactions: Allergies Allergy/AdvReac Type Severity Reaction Status Date / Time aspirin Allergy DIZZINESS Verified 03/23/18 07:50 Results - Vital Signs Recent Vital Signs: Last Vital Signs Temp 98.2 F 03/31/18 19:43 Pulse 82 03/31/18 19:43 Resp 20 03/31/18 19:43 BP 140/75 03/31/18 19:43 Pulse Ox 95 03/31/18 19:43 - Labs Labs: Laboratory Results - last 24 hr 03/30/18 03/31/18 03/31/18 20:58 05:15 10:50 POC Glucose (mg/dL) 132 H 88 157 H Vancomycin Trough 03/31/18 03/31/18 04/01/18 16:08 20:44 04:50 POC Glucose (mg/dL) 107 118 H Vancomycin Trough 14.2 H 04/01/18 06:11 POC Glucose (mg/dL) 105 Vancomycin Trough
--- NOTE | 2018-04-01 13:57 | CP.PCM.CON ---
History of Present Illness - History of Present Illness History of Present Illness: Dr Lopes PMR consultation on Wili Genao, born 1940, who has been admitted to [facility] TCU for ALEA and ABX treatment. + bladder CA with mets and has nephrostomy tube. + UTI and tubes changed and placed on ABX. He is stable now. Minimal back pain. Did very well in therapies. He normally does not require an AD for ambulation. Review of Systems - Constitutional Constitutional: absent: Anorexia, Chills - EENT Eyes: absent: Change in Vision Ears: absent: Ear Discharge, Ear Pain, Tinnitus Nose/Mouth/Throat: absent: Nasal Congestion - Cardiovascular Cardiovascular: absent: Chest Pain - Respiratory Respiratory: absent: Dyspnea - Gastrointestinal Gastrointestinal: absent: Abdominal Pain, Constipation - Musculoskeletal Musculoskeletal: Back Pain (minimal) - Integumentary Integumentary: absent: Bleeding Lesions Past Patient History - Infectious Disease Hx of Infectious Diseases: None - Past Medical History & Family History Past Medical History?: Yes - Past Social History Smoking Status: Former Smoker Drugs: Denies Home Situation {Lives}: With Family (some steps outside, but once inside, flat) - CARDIAC Hx Cardiac Disorders: Yes Hx Peripheral Edema: Yes (BLE) - PULMONARY Hx Respiratory Disorders: No - NEUROLOGICAL Hx Neurological Disorder: No - HEENT Hx HEENT Problems: No - RENAL Hx Neurogenic Bladder: Yes - ENDOCRINE/METABOLIC Hx Endocrine Disorders: Yes Hx Diabetes Mellitus Type 2: Yes - HEMATOLOGICAL/ONCOLOGICAL Hx Blood Disorders: Yes Hx Anemia: Yes - INTEGUMENTARY Hx Dermatological Problems: No - MUSCULOSKELETAL/RHEUMATOLOGICAL Hx Falls: No - GASTROINTESTINAL Other/Comment: TURBT - GENITOURINARY/GYNECOLOGICAL Hx Genitourinary Disorders: Yes Hx Bladder Cancer: Yes - PSYCHIATRIC Hx Psychophysiologic Disorder: Yes Hx Depression: Yes Hx Substance Use: No - SURGICAL HISTORY Hx Surgeries: Yes Hx Herniorrhaphy: Yes (> 20 YRS AGO) Other/Comment: Hx TURBT with 07/2017. Hx cystoscopy - Transurethral resection of bladder tumor 12/06/17. Hx Bilateral Nephrostomy tube excharge 03/30. Right portacath - ANESTHESIA Hx Anesthesia: Yes Hx Anesthesia Reactions: No Hx Malignant Hyperthermia: No Meds Allergies/Adverse Reactions: Allergies Allergy/AdvReac Type Severity Reaction Status Date / Time aspirin Allergy DIZZINESS Verified 03/23/18 07:50 - Medications Medications: Current Medications Vancomycin HCl 750 mg/ Sodium (Chloride) 250 mls @ 166.667 mls/hr IVPB Q12@0500 ,1700 [facility] PRN Reason: Protocol Last Admin: 04/01/18 06:00 Dose: 166.667 mls/hr Oxycodone HCl (Oxycodone Immediate Release Tab) 15 mg PO Q4H PRN PRN Reason: Pain, severe (8-10) Last Admin: 04/01/18 13:19 Dose: 15 mg Senna/Docusate Sodium (Senokot S 50 Mg-8.6 Mg) 2 tab PO HS [facility] Tamsulosin HCl (Flomax) 0.4 mg PO HS [facility] Last Admin: 03/31/18 22:02 Dose: 0.4 mg Physical Exam - Constitutional Appears: No Acute Distress - Head Exam Head Exam: ATRAUMATIC, NORMAL INSPECTION, NORMOCEPHALIC - Eye Exam Eye Exam: EOMI - ENT Exam ENT Exam: Mucous Membranes Moist - Respiratory Exam Respiratory Exam: NORMAL BREATHING PATTERN - Cardiovascular Exam Cardiovascular Exam: REGULAR RHYTHM - GI/Abdominal Exam GI & Abdominal Exam: absent: Distended, Firm (nephrostomy tube with leg bag) - Extremities Exam Extremities exam: Negative for: calf tenderness - Neurological Exam Neurological exam: Alert, CN II-XII Intact, Oriented x3 - Psychiatric Exam Psychiatric exam: Normal Affect, Normal Mood - Skin Skin Exam: Warm Results - Vital Signs Recent Vital Signs: Last Vital Signs Temp 97.9 F 04/01/18 08:47 Pulse 83 04/01/18 08:47 Resp 20 04/01/18 08:47 BP 136/63 04/01/18 08:47 Pulse Ox 99 04/01/18 08:47 - Labs Labs: Laboratory Results - last 24 hr 03/31/18 03/31/18 03/31/18 10:50 16:08 20:44 POC Glucose (mg/dL) 157 H 107 118 H Vancomycin Trough 04/01/18 04/01/18 04/01/18 04:50 06:11 10:56 POC Glucose (mg/dL) 105 121 H Vancomycin Trough 14.2 H Assessment & Plan - Assessment and Plan (Free Text) Assessment: Patient doing well, ambulating well, no significant pain issue + bone mets nephrostomy supportive family continue current care PT/OT to continue to help increase functional independence Pain: controlled Vascular: no evidence of DVT GI: No evidence of constipation or diarrhea Patient continues to be an excellent TCU rehabilitation candidate and will have continued focused PT, OT and recreational therapy to help facilitate a safe and appropriate d/c plan
--- NOTE | 2018-04-01 18:41 | CP.PCM.PN ---
Subjective - Date & Time of Evaluation Date of Evaluation: 04/01/18 Time of Evaluation: 17:45 Objective - Vital Signs/Intake and Output Vital Signs (last 24 hours): Temp Pulse Resp BP Pulse Ox 99.5 F 78 20 126/63 98 04/01/18 16:49 04/01/18 16:49 04/01/18 16:49 04/01/18 16:49 04/01/18 16:49 Intake and Output: 04/01/18 04/01/18 06:59 18:59 Output Total 1250 Balance -1250 - Medications Medications: Current Medications Vancomycin HCl 750 mg/ Sodium (Chloride) 250 mls @ 166.667 mls/hr IVPB Q12@0500 ,1700 [facility] PRN Reason: Protocol Last Admin: 04/01/18 17:24 Dose: 166.667 mls/hr Oxycodone HCl (Oxycodone Immediate Release Tab) 15 mg PO Q4H PRN PRN Reason: Pain, severe (8-10) Last Admin: 04/01/18 13:19 Dose: 15 mg Senna/Docusate Sodium (Senokot S 50 Mg-8.6 Mg) 2 tab PO HS [facility] Tamsulosin HCl (Flomax) 0.4 mg PO HS [facility] Last Admin: 03/31/18 22:02 Dose: 0.4 mg
[2018-04-01] MEDS: Docusate-Senna 50 mg-8.6 mg Tab PO SCH (21:17)
[2018-04-02] MEDS: oxyCODONE 5 mg Immediate Release Tab PO PRN ×4 (04:19→23:44)
[2018-04-02] MEDS: Docusate-Senna 50 mg-8.6 mg Tab PO SCH (23:40)
[2018-04-03] MEDS: oxyCODONE 5 mg Immediate Release Tab PO PRN ×3 (05:27→20:24)
--- NOTE | 2018-04-03 19:41 | CP.PCM.PN ---
Subjective - Date & Time of Evaluation Date of Evaluation: 04/02/18 Time of Evaluation: 15:35 Objective - Vital Signs/Intake and Output Vital Signs (last 24 hours): Temp Pulse Resp BP Pulse Ox 97.9 F 79 20 130/64 98 04/03/18 16:38 04/03/18 16:38 04/03/18 16:38 04/03/18 16:38 04/03/18 16:38 - Medications Medications: Current Medications Vancomycin HCl 750 mg/ Sodium (Chloride) 250 mls @ 166.667 mls/hr IVPB Q12@0500 ,1700 [facility] PRN Reason: Protocol Stop: 04/04/18 23:59 Last Admin: 04/03/18 17:24 Dose: 166.667 mls/hr Oxycodone HCl (Oxycodone Immediate Release Tab) 15 mg PO Q4H PRN PRN Reason: Pain, severe (8-10) Last Admin: 04/03/18 15:32 Dose: 15 mg Senna/Docusate Sodium (Senokot S 50 Mg-8.6 Mg) 2 tab PO HS [facility] Last Admin: 04/02/18 23:40 Dose: 2 tab Tamsulosin HCl (Flomax) 0.4 mg PO HS [facility] Last Admin: 04/02/18 23:40 Dose: 0.4 mg
--- NOTE | 2018-04-03 19:42 | CP.PCM.PN ---
Subjective - Date & Time of Evaluation Date of Evaluation: 04/03/18 Time of Evaluation: 16:10 Objective - Vital Signs/Intake and Output Vital Signs (last 24 hours): Temp Pulse Resp BP Pulse Ox 97.9 F 79 20 130/64 98 04/03/18 16:38 04/03/18 16:38 04/03/18 16:38 04/03/18 16:38 04/03/18 16:38 - Medications Medications: Current Medications Vancomycin HCl 750 mg/ Sodium (Chloride) 250 mls @ 166.667 mls/hr IVPB Q12@0500 ,1700 [facility] PRN Reason: Protocol Stop: 04/04/18 23:59 Last Admin: 04/03/18 17:24 Dose: 166.667 mls/hr Oxycodone HCl (Oxycodone Immediate Release Tab) 15 mg PO Q4H PRN PRN Reason: Pain, severe (8-10) Last Admin: 04/03/18 15:32 Dose: 15 mg Senna/Docusate Sodium (Senokot S 50 Mg-8.6 Mg) 2 tab PO HS [facility] Last Admin: 04/02/18 23:40 Dose: 2 tab Tamsulosin HCl (Flomax) 0.4 mg PO HS [facility] Last Admin: 04/02/18 23:40 Dose: 0.4 mg
[2018-04-03 20:03] VITALS: O2SAT 97
[2018-04-04] MEDS: Docusate-Senna 50 mg-8.6 mg Tab PO SCH (00:35)
[2018-04-04] MEDS: oxyCODONE 5 mg Immediate Release Tab PO PRN ×2 (00:36→08:58)
[2018-04-04 08:21] VITALS: BP 138/70; PULSE 84; TEMP 98.4
--- NOTE | 2018-04-04 12:10 | CP.PCM.DIS ---
Provider - Provider Date of Admission: 03/30/18 20:05 Attending physician: Evan Swanson MD Time Spent in preparation of Discharge (in minutes): 25 Hospital Course - Lab Results Lab Results: Most Recent Lab Values POC Glucose (mg/dL) 149 mg/dL (65-110) H 04/02/18 21:16 Vancomycin Trough 18.2 ug/mL (5.0-10.0) H 04/04/18 04:30 Discharge Exam - Head Exam Head Exam: ATRAUMATIC, NORMAL INSPECTION, NORMOCEPHALIC Discharge Plan - Follow Up Plan Condition: GOOD Disposition: HOME/ ROUTINE
--- NOTE | 2018-04-04 13:47 | CP.PCM.PN ---
Subjective - Date & Time of Evaluation Date of Evaluation: 04/04/18 Time of Evaluation: 13:46 - Subjective Subjective: ID Note- Pt. seen and examined today in TCU with his son at his bedside. pt. is being d/c home today as per his Primary doc. Pt. denies any complaints. Objective - Vital Signs/Intake and Output Vital Signs (last 24 hours): Temp Pulse Resp BP Pulse Ox 98.4 F 84 20 138/70 97 04/04/18 08:21 04/04/18 08:21 04/04/18 08:21 04/04/18 08:21 04/04/18 08:21 - Medications Medications: Current Medications Vancomycin HCl 750 mg/ Sodium (Chloride) 250 mls @ 166.667 mls/hr IVPB Q12@0500 ,1700 [facility] PRN Reason: Protocol Stop: 04/04/18 23:59 Last Admin: 04/04/18 08:07 Dose: Not Given Ondansetron HCl (Zofran Inj) 4 mg IVP Q6 PRN PRN Reason: Nausea/Vomiting Last Admin: 04/03/18 21:00 Dose: 4 mg Oxycodone HCl (Oxycodone Immediate Release Tab) 15 mg PO Q4H PRN PRN Reason: Pain, severe (8-10) Last Admin: 04/04/18 08:58 Dose: 15 mg Senna/Docusate Sodium (Senokot S 50 Mg-8.6 Mg) 2 tab PO HS [facility] Last Admin: 04/04/18 00:35 Dose: 2 tab Tamsulosin HCl (Flomax) 0.4 mg PO [facility] Last Admin: 04/04/18 00:35 Dose: 0.4 mg - Additional Findings Additional findings: - Constitutional Appears: No Acute Distress - Head Exam Head Exam: ATRAUMATIC - Eye Exam Eye Exam: EOMI - ENT Exam ENT Exam: Normal Oropharynx - Neck Exam Neck exam: Positive for: Full Rom - Respiratory Exam Respiratory Exam: Clear to Auscultation Bilateral, NORMAL BREATHING PATTERN - Cardiovascular Exam Cardiovascular Exam: RRR, +S1, +S2 - GI/Abdominal Exam GI & Abdominal Exam: Normal Bowel Sounds, Soft Additional comments: NT, ND - Extremities Exam Additional comments: b/l le with dark skin discoloration and dry skin changes c/w venous insufficiency - Back Exam Additional comments: b/l nephrostomy tubes in place, no discharge around the site, no erythema urine in b/l urine collection bags from the b/l nephro tubes clear and yellow - Neurological Exam Neurological exam: Alert, Oriented x 3 Laboratory Results - last 72 hr 04/01/18 04/01/18 04/02/18 16:33 20:50 05:45 POC Glucose (mg/dL) 134 H 89 103 Vancomycin Trough 04/02/18 04/02/18 04/02/18 11:02 16:06 21:16 POC Glucose (mg/dL) 137 H 124 H 149 H Vancomycin Trough 04/04/18 04:30 POC Glucose (mg/dL) Vancomycin Trough 18.2 H a Microbiology 03/25/18 13:45 Back Gram Stain - Final 03/25/18 13:45 Back Wound Culture - Final Staphylococcus Aureus Corynebacterium Species 03/25/18 13:15 Urine,Veliz Urine Culture - Final Staphylococcus Aureus 03/25/18 12:24 Blood Blood Culture - Final NO GROWTH AFTER 5 DAYS 02/12/18 11:57 Urine,Catheterized Urine Culture - Final Staphylococcus Aureus Assessment and Plan (1) Acute pyelonephritis Status: Acute (2) Bladder cancer Status: Acute (3) Obstructive uropathy Status: Acute - Assessment and Plan (Free Text) Assessment: s/p b/l nephrostomy tube change last week. afebrile initial UA- positive urine cx- MSSA fluid from around previous nephro site cx- MSSA and corynebacterium blood cx- neg x 1 repeat ua from 03/29/2018- negative for nitrate, still has LE but not cloudy and neg for nitrates hence has improved. Plan- has completed 10 days of IV vancomycin for mssa and corynebacterium UTI. day # 10 advised to f/u closely with both his and his oncologist as outpatient and decipher how often his nephrostomy tube should be changed . also advised pt. if he develops any fever or back pain or if his urine color turns dark/cloudy to notify his pmd and and /or return to ED for evaluation. Pt. verbalizes full understanding of all above and agrees with above plan of care.
== END 2018-04-04 15:15 | disposition home or self-care (01) | DRG 690 ==
LOC: H.TCU 20:05
PROVIDERS: ADMIT Internal Medicine; ATTEND Internal Medicine
PROC: F06ZDZZ Swallowing Dysfunction Treatment (ICD-10-PCS; principal; 2018-03-30)
DX: N10 Acute pyelonephritis (principal); C79.51 Secondary malignant neoplasm of bone; B95.61 Methicillin susceptible Staphylococcus aureus infection as the cause of diseases classified elsewhere; Z93.6 Other artificial openings of urinary tract status; B96.89 Other specified bacterial agents as the cause of diseases classified elsewhere; Z87.891 Personal history of nicotine dependence; Z85.51 Personal history of malignant neoplasm of bladder; I87.2 Venous insufficiency (chronic) (peripheral); N13.9 Obstructive and reflux uropathy, unspecified; N31.9 Neuromuscular dysfunction of bladder, unspecified; E11.9 Type 2 diabetes mellitus without complications; Z88.6 Allergy status to analgesic agent

== ENCOUNTER 2018-04-06 02:09 | Emergency (ER) | payer MEDICARE ==
[2018-04-06 02:09] VITALS: BMI 23.8
[2018-04-06 03:10] VITALS: BP 128/65; PULSE 79; RESP 17; TEMP 98.6; O2SAT 98
--- NOTE | 2018-04-06 03:37 | ED PDOC ---
HPI: Wound Care - HPI Time Seen by Provider: 04/06/18 02:29 Chief Complaint (Nursing): Wound Check Chief Complaint (Provider): possible malfunction of nephrostomy tube History Per: Patient Exam Limitations: no limitations Onset/Duration Of Symptoms: Hrs (22:00) Additional Complaint(s): Wili Genao is an 78 year old male, with a past medical history of bladder CA w / obstructive uropathy, who presents to the emergency department for possible malfunction of nephrostomy tubes onset since 23:00. Patient has b/l nephrostomy tubes and currently sees Dr. Dewey. He presents today after he felt urine leaking and dressing has become wet. Upon arrival to ED there is no obvious leakage but noticed to be wet in recent nephrostomy dressing to the right. Patient's urine is light on the right compared to the left. Patient also reports he has chronic flank pain. He denies any other medical complaints. PMD: Travon Mariscal Jr. Urologist: Dr. Dewey Past Medical History Reviewed: Historical Data, Nursing Documentation, Vital Signs Vital Signs: Last Vital Signs Temp 98.6 F 04/06/18 02:28 Pulse 79 04/06/18 02:28 Resp 17 04/06/18 02:28 BP 128/65 04/06/18 02:28 Pulse Ox 98 04/06/18 02:28 - Medical History PMH: Anemia, Depression, Diabetes, Peripheral Edema (BLE) Denies: HIV, Chronic Kidney Disease - Surgical History Surgical History: Hernia Repair - Family History Family History: States: Unknown Family Hx - Social History Current smoker - smoking cessation education provided: No Alcohol: None Drugs: Denies - Home Medications Home Medications: Ambulatory Orders Medication Instructions Recorded Tamsulosin [Flomax] 0.4 mg PO HS 02/12/18 Dextrose Oral [Glutose 15] 15 gm PO PRN PRN tube 03/30/18 - Allergies Allergies/Adverse Reactions: Allergies Allergy/AdvReac Type Severity Reaction Status Date / Time aspirin Allergy DIZZINESS Verified 03/23/18 07:50 Review of Systems ROS Statement: Except As Marked, All Systems Reviewed And Found Negative Genitourinary Male: Positive for: Other (nephrostomy bag leakage) Physical Exam - Reviewed Nursing Documentation Reviewed: Yes Vital Signs Reviewed: Yes - Physical Exam Appears: Positive for: No Acute Distress Head Exam: Positive for: ATRAUMATIC, NORMAL INSPECTION, NORMOCEPHALIC Skin: Positive for: Normal Color, Warm, Dry Eye Exam: Positive for: Normal appearance, EOMI, PERRL Neck: Positive for: Painless ROM Cardiovascular/Chest: Positive for: Regular Rate, Rhythm. Negative for: Murmur Respiratory: Positive for: Normal Breath Sounds. Negative for: Respiratory Distress Gastrointestinal/Abdominal: Positive for: Normal Exam, Soft. Negative for: Tenderness Back: Positive for: Other (nephrostomy patently draining urine and dressing to the right is wet. Provider changed dressing.) Extremity: Positive for: Normal ROM (all extremities). Negative for: Deformity , Swelling Neurologic/Psych: Positive for: Alert, Oriented - ECG O2 Sat by Pulse Oximetry: 98 (RA) Pulse Ox Interpretation: Normal Medical Decision Making Medical Decision Making: Time: 02:29 Initial Impression: 78 y/o male with likely ideology related to leakage of the nephrostomy tube Initial Plan: --Reevaluation 03:00 -Dressing changed by provider. 03:55 -Patient reports improvement after dressing change and is medically stable for discharge. Patient advised to follow up with Dr. Dewey. Diagnosis nephrostomy malfunction. ----- Scribe Attestation: Documented by Wili Epperson, acting as a scribe for Francois Polo MD. Provider Scribe Attestation: All medical record entries made by the Scribe were at my direction and personally dictated by me. I have reviewed the chart and agree that the record accurately reflects my personal performance of the history, physical exam, medical decision making, and the department course for this patient. I have also personally directed, reviewed, and agree with the discharge instructions and disposition. Disposition - Clinical Impression Clinical Impression: Complication of nephrostomy - Disposition Referrals: Murray Dewey MD [Medical Doctor] - Disposition: Routine/Home Disposition Time: 03:55 Condition: STABLE Instructions: How to Care for Your Nephrostomy Tube Forms: [employer] (Gabonese)
== END 2018-04-06 04:30 | disposition home or self-care (01) ==
LOC: H.ER 02:09
DX: T83.092A Other mechanical complication of nephrostomy catheter, initial encounter (principal); Z85.51 Personal history of malignant neoplasm of bladder; E11.9 Type 2 diabetes mellitus without complications; F32.9 Major depressive disorder, single episode, unspecified; G89.29 Other chronic pain

== ENCOUNTER 2018-04-17 11:45 | Inpatient (IN) | payer MEDICARE ==
[2018-04-17 11:45] VITALS: BMI 23.8
[2018-04-17 12:40] LABS: URINE AMORPHOUS SEDIMENT OCC /ul (<OCC); URINE BACTERIA OCC (<OCC); URINE BILIRUBIN NEGATIVE (NEGATIVE); URINE BLOOD LARGE (NEGATIVE); URINE CLARITY CLOUDY (Clear); URINE COLOR YELLOW (YELLOW); URINE GLUCOSE (UA) NEG (Normal); URINE LEUKOCYTE ESTERASE TRACE Leu/uL (Negative); URINE PROTEIN 100 mg/dL (NEGATIVE); URINE UROBILINOGEN 0.2-1.0 mg/dL (0.2-1.0)
--- NOTE | 2018-04-17 13:41 | ED PDOC ---
HPI: Back Time Seen by Provider: 04/17/18 11:56 Chief Complaint (Nursing): Back Pain Chief Complaint (Provider): Back pain History Per: Patient History/Exam Limitations: clinical condition Additional Complaint(s): Pt BIBA for back and buttock pain X 1 day. 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 Past Medical History Reviewed: Nursing Documentation, Vital Signs Vital Signs: Last Vital Signs Temp 99.2 F 04/17/18 11:50 Pulse 103 H 04/17/18 11:50 Resp 20 04/17/18 11:50 BP 119/63 04/17/18 11:50 Pulse Ox 99 04/17/18 11:50 - Medical History PMH: Anemia, Depression, Diabetes, Peripheral Edema (BLE) Denies: HIV, Chronic Kidney Disease - Surgical History Surgical History: Hernia Repair - Family History Family History: States: Unknown Family Hx - Social History Current smoker - smoking cessation education provided: No Alcohol: None - Home Medications Home Medications: Ambulatory Orders Medication Instructions Recorded Tamsulosin [Flomax] 0.4 mg PO HS 02/12/18 oxyCODONE [oxyCODONE Immediate 1 tab PO PRN PRN 04/17/18 Release Tab] - Allergies Allergies/Adverse Reactions: Allergies Allergy/AdvReac Type Severity Reaction Status Date / Time aspirin Allergy DIZZINESS Verified 04/17/18 12:08 Review of Systems ROS Statement: Except As Marked, All Systems Reviewed And Found Negative Musculoskeletal: Positive for: Back Pain Skin: Positive for: Lesions Physical Exam - Reviewed Nursing Documentation Reviewed: Yes Vital Signs Reviewed: Yes - Physical Exam Appears: Positive for: Uncomfortable Head Exam: Positive for: ATRAUMATIC, NORMAL INSPECTION Skin: Positive for: Normal Color, Warm, Dry Cardiovascular/Chest: Positive for: Regular Rate, Rhythm Respiratory: Positive for: Normal Breath Sounds Gastrointestinal/Abdominal: Positive for: Bowel Sounds, Soft, Tenderness. Negative for: Guarding, Rebound Back: Positive for: L CVA Tenderness, R CVA Tenderness, Other (Bilateral nephrostomy tubes in place, + urine both bags) Rectal: Positive for: Other (Stage II sacral ulcer) Extremity: Positive for: Normal ROM, Pedal Edema, Swelling (RLE). Negative for : Deformity Neurologic/Psych: Positive for: Alert, Oriented - Laboratory Results Result Diagrams: 04/18/18 05:35 08/06/18 05:35 - ECG Interpretation Of ECG: NSR @ 83, no ST-T changes. O2 Sat by Pulse Oximetry: 99 Pulse Ox Interpretation: Normal - Physician Consult Information Time Consulting Physican Contacted: 18:18 Physician Contacted: Murray Dewey Outcome Of Conversation: Will consult. Medical Decision Making Medical Decision Makin yo male with back pain and sacral ulcer. - labs - EKG - CT abd/pelvis - IVF - Morphine CT ABD/PELVIS: There is metastatic adenopathy. There is osseous metastatic disease. There is bilateral hydronephrosis. There is a questionable mass in the right lower lobe of the lung. If there is desire for further evaluation, a chest CT scan could be performed. Disposition - Clinical Impression Clinical Impression: Complicated UTI (urinary tract infection), Urinary tract infection associated with nephrostomy catheter, Bladder cancer - Disposition Disposition Time: 18:05 Condition: STABLE - Pt Status Changed To: Hospital Disposition Of: Inpatient - Admit Certification Admit to Inpatient:: After my assessment, the patient will require hospitalization for at least two midnights. This is because of the severity of symptoms shown, intensity of services needed, and/or the medical risk in this patient being treated as an outpatient. - POA Present On Arrival: Cath Associated UTI, Pressure Ulcer
[2018-04-17] MEDS ORDERED: cefTRIAXone (Rocephin) 1 gm Inj ONE (13:48)
[2018-04-17 14:18] LABS: LYMPH # 0.4 K/uL (1.0-4.3); MEAN CELL VOLUME 90.1 fl (80.0-94.0); MEAN CORPUSCULAR HEMOGLOBIN 30.8 pg (27.0-31.0); MEAN CORPUSCULAR HGB CONC 34.2 g/dL (33.0-37.0); MEAN PLATELET VOLUME 5.9 fl (7.2-11.7); MONO % 1.5 % (0.0-10.0); RBC 2.59 Mil/uL (4.40-5.90); RED CELL DISTRIBUTION WIDTH 18.8 % (11.5-14.5)
[2018-04-17 14:20] LABS: WHITE BLOOD COUNT 1.4 K/uL (4.8-10.8)
[2018-04-17 14:22] LABS: PROTHROMBIN TIME 22.1 Seconds (9.8-13.1)
[2018-04-17 14:25] LABS: PARTIAL THROMBOPLASTIN TIME 51.9 Seconds (25.6-37.1)
[2018-04-17 14:28] LABS: BASO % 2.6 % (0.0-2.0); EOS % 0.8 % (0.0-4.0); LYMPH % 30.2 % (20.0-40.0); NEUT # 0.9 K/uL (1.8-7.0); NEUT % 64.9 % (50.0-75.0)
[2018-04-17 14:33] LABS: ALB/GLOB RATIO 1.1 (1.0-2.1); ALBUMIN 3.4 g/dL (3.5-5.0); ALT/SGPT 35 U/L (21-72); AST/SGOT 101 U/L (17-59); BLOOD UREA NITROGEN 32 mg/dl (9-20); CALCIUM 8.3 mg/dL (8.4-10.2); GFR AFRICAN-AMERICAN > 60; GFR NON-AFRICAN AMERICAN 58
[2018-04-17] MEDS ORDERED: Sodium Chloride 0.9% 50 ML IV ONE (16:01)
[2018-04-17] MEDS ORDERED: Iohexol 300 100 ML IJ ONE (16:01)
[2018-04-17] MEDS ORDERED: oxyCODONE 10 mg Immediate Release Tab PO PRN (23:44)
[2018-04-18] MEDS: oxyCODONE 10 mg Immediate Release Tab PO PRN (00:21)
[2018-04-18] MEDS: Meropenem 500 MG in Sodium Chloride 0.9% 100 ML IVPB SCH ×3 (04:54→20:31)
[2018-04-18 06:19] LABS: BASO % 1.8 % (0.0-2.0); EOS % 1.3 % (0.0-4.0); HEMOGLOBIN 7.2 g/dL (12.0-18.0); LYMPH # 0.5 K/uL (1.0-4.3); LYMPH % 33.5 % (20.0-40.0); MEAN CELL VOLUME 89.8 fl (80.0-94.0); MEAN CORPUSCULAR HEMOGLOBIN 30.4 pg (27.0-31.0); MEAN CORPUSCULAR HGB CONC 33.8 g/dL (33.0-37.0); MONO % 2.6 % (0.0-10.0); NEUT # 0.8 K/uL (1.8-7.0); NEUT % 60.8 % (50.0-75.0); NRBC % 0.4 % (0.0-0.0); RBC 2.36 Mil/uL (4.40-5.90); RED CELL DISTRIBUTION WIDTH 18.7 % (11.5-14.5)
[2018-04-18 06:29] LABS: WHITE BLOOD COUNT 1.4 K/uL (4.8-10.8)
[2018-04-18 06:36] LABS: ALBUMIN 3.1 g/dL (3.5-5.0); ALT/SGPT 27 U/L (21-72); AST/SGOT 62 U/L (17-59); BLOOD UREA NITROGEN 27 mg/dl (9-20); CALCIUM 8.4 mg/dL (8.4-10.2); GFR AFRICAN-AMERICAN > 60; GFR NON-AFRICAN AMERICAN 58
--- NOTE | 2018-04-18 07:59 | CARD ---
APPROVED REPORT Date of service: 04/17/2018 <Conclusion> Normal sinus rhythm Normal ECG
--- NOTE | 2018-04-18 08:28 | RAD ---
Date of service: 04/17/2018 HISTORY: Back pain COMPARISON: Portable chest 03/25/2018. FINDINGS: LUNGS: Increased reticular markings at the bilateral bases may reflect platelike atelectasis. Borderline alveolitis medial right base. No left sided airspace disease identified. PLEURA: No significant pleural effusion identified, no pneumothorax apparent. CARDIOVASCULAR: Right MediPort catheter is stable. No pulmonary vascular congestion or interval cardiomegaly. OSSEOUS STRUCTURES: No significant abnormalities. VISUALIZED UPPER ABDOMEN: Normal. OTHER FINDINGS: None. IMPRESSION: Platelike atelectasis is question in the bilateral bases with borderline alveolitis medial right base.
--- NOTE | 2018-04-18 10:03 | CT ---
Date of service: 04/17/2018 PROCEDURE: CT Abdomen and Pelvis with contrast HISTORY: Back pain, bilateral nephrostomy tubes COMPARISON: Abdomen pelvis CT with contrast 03/25/2018. TECHNIQUE: Following the intravenous administration of iodinated contrast material, a CT examination of the abdomen and pelvis performed from the domes of the diaphragms to the symphysis pubis with reformatted datasets provided in axial, sagittal and coronal planes. Oral contrast was not administered as per referring physician request. Contrast dose: Omnipaque 300, 95 cc Radiation dose: Total exam DLP = 440.75 mGy-cm. This CT exam was performed using one or more of the following dose reduction techniques: Automated exposure control, adjustment of the mA and/or kV according to patient size, and/or use of iterative reconstruction technique. FINDINGS: LOWER THORAX: Reiterated limited emphysematous changes bilateral bases. Fibrotic changes are reiterated at the right lower lobe and appear further diminished in volume in the interval. LIVER: Unremarkable. No gross lesion or ductal dilatation. GALLBLADDER AND BILE DUCTS: The gallbladder is rather distended once again. No interval pericholecystic fluid collection or mural thickening. PANCREAS: Unremarkable. No gross lesion or ductal dilatation. SPLEEN: Unremarkable. ADRENALS: Unremarkable. No mass. KIDNEYS AND URETERS: Bilateral nephrostomies remain in situ. No hydronephrosis. Streaky perinephric changes are reiterated bilaterally and remain minimal. There is mild prominence of the proximal left ureter without radiodense calculus demonstrated obstructing the left ureter. VASCULATURE: Unremarkable. No aortic aneurysm. BOWEL: Relatively prominent fecal loading seen throughout the colon. No bowel obstruction apparent, however, consider constipation. The stomach is collapsed once again appear small hiatal hernia is seen related. APPENDIX: Normal appendix. PERITONEUM: Unremarkable. No free fluid. No free air. LYMPH NODES: Moderate retroperitoneal lymphadenopathy is reiterated including the distal left lateral/periaortic lymph node measuring 3.4 x 2.6 cm. BLADDER: Urinary bladder remains moral largely decompressed with gross mural thickening again seen in the periphery. REPRODUCTIVE: Stable prominent enlargement of prostate gland reiterated. BONES: Diffuse osteoblastic metastasis reiterated with stable limited spondylolisthesis L4-5. OTHER FINDINGS: None. IMPRESSION: 1. Diffuse osteoblastic metastasis reiterated with stable grade 1 spondylolisthesis L4-5 also noted. 2. Stable moderate retroperitoneal lymphadenopathy. 3. No definite hydronephrosis bilaterally though mild dilatation of the proximal left ureters evident of an indeterminate etiology. Stable appearance to bilateral nephrostomy deployment. 4. Thickened urinary bladder reiterated potentially from cystitis, other obstruction or neoplasm. 5. Enlarged prostate gland reiterated. 6. Other lesser findings as discussed above.
[2018-04-18] MEDS: oxyCODONE 10 mg ER Tab (oxyCONTIN) PO SCH ×2 (10:20→20:30)
--- NOTE | 2018-04-18 11:31 | US ---
Date of service: 04/17/2018 PROCEDURE: Bilateral lower extremity venous duplex Doppler. HISTORY: Leg swelling COMPARISON: None available. TECHNIQUE: Bilateral common femoral, superficial femoral, popliteal and posterior tibial veins were evaluated. Flow was assessed with color Doppler, compressibility, assessment of phasic flow and augmentation response. FINDINGS: COMMON FEMORAL VEIN: Right CFV: Unremarkable. Left CFV: Unremarkable. SUPERFICIAL FEMORAL VEIN: Right SFV: Unremarkable. Left SFV: Unremarkable. POPLITEAL VEIN: Right Popliteal: Unremarkable. Left Popliteal: Unremarkable. POSTERIOR TIBIAL VEIN: Right PTV: Unremarkable. Left PTV: Unremarkable. OTHER FINDINGS: None. IMPRESSION: No evidence of deep venous thrombosis.
--- NOTE | 2018-04-18 11:36 | CP.PCM.CON ---
History of Present Illness - History of Present Illness History of Present Illness: Infectious Disease Consultation Note- Asked to see this patient at the request of for complicated UTI. HPI- Patient known to me from his most recent admission here. Pt. 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 Pt. 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 LASt month pt. was admitted with back pian dna d/c from around b/l nephrostomy tubes that ahd been in place for 4 months . the urine cx was pos for MSSA and e.fecalis and pt. b/l nephrostomy tubes were replaced by and pt. completed 10 days of IV vancomycin adn his repeat uriine cx were negative and he felt much better and was d/c home and advised to f/u closely with both and his oncologist and PMD . Pt. is now admitted with back pian and chills. afebrile but has + UA . no leakage and no redness around nephrostomy tubes. stage 1 sacral decub. He denies any SAPP, denies any nausea or vomiting, denies any diarrhea, denies any cough or sob, denies any chest pain. Review of Systems - Review of Systems Review of Systems: see HPI Past Patient History - Infectious Disease Hx of Infectious Diseases: None - Past Medical History & Family History Past Medical History?: Yes - Past Social History Smoking Status: Former Smoker Alcohol: None Home Situation {Lives}: With Family - PULMONARY Hx Respiratory Disorders: No - NEUROLOGICAL Hx Neurological Disorder: No - HEENT Hx HEENT Problems: No - RENAL Hx Chronic Kidney Disease: No - ENDOCRINE/METABOLIC Hx Endocrine Disorders: Yes Hx Diabetes Mellitus Type 2: Yes - HEMATOLOGICAL/ONCOLOGICAL Hx Anemia: Yes - INTEGUMENTARY Hx Dermatological Problems: No - MUSCULOSKELETAL/RHEUMATOLOGICAL Hx Musculoskeletal Disorders: No Hx Falls: No - GASTROINTESTINAL Hx Gastrointestinal Disorders: No Other/Comment: TURBT - GENITOURINARY/GYNECOLOGICAL Hx Genitourinary Disorders: Yes Hx Bladder Cancer: Yes (bilateral nephrostomy tube) - PSYCHIATRIC Hx Depression: Yes - SURGICAL HISTORY Hx Surgeries: Yes Hx Herniorrhaphy: Yes (> 20 YRS AGO) Other/Comment: Hx TURBT with 07/2017. Hx cystoscopy - Transurethral resection of bladder tumor 12/06/17. Hx Bilateral Nephrostomy tube excharge 03/30. Right portacath - ANESTHESIA Hx Anesthesia: Yes Hx Anesthesia Reactions: No Hx Malignant Hyperthermia: No Meds Allergies/Adverse Reactions: Allergies Allergy/AdvReac Type Severity Reaction Status Date / Time aspirin Allergy DIZZINESS Verified 04/17/18 12:08 - Medications Medications: Current Medications Meropenem 500 mg/ Sodium (Chloride) 100 mls @ 100 mls/hr IVPB Q6 MIKE PRN Reason: Protocol Stop: 04/19/18 02:01 Last Admin: 04/18/18 04:54 Dose: 100 mls/hr Morphine Sulfate (Morphine) 2 mg IVP Q4 PRN PRN Reason: Pain, severe (8-10) Last Admin: 04/18/18 04:56 Dose: 2 mg Oxycodone HCl (Oxycontin Extended Release Tab) 10 mg PO Q12 MIKE Stop: 04/21/18 09:01 Oxycodone HCl (Oxycodone Immediate Release Tab) 10 mg PO Q6 PRN PRN Reason: Pain, moderate (4-7) Last Admin: 04/18/18 00:21 Dose: 10 mg Tamsulosin HCl (Flomax) 0.4 mg PO HS [facility] Physical Exam - Constitutional Appears: Chronically Ill - Head Exam Head Exam: ATRAUMATIC - Eye Exam Eye Exam: EOMI, PERRL - ENT Exam ENT Exam: Normal Oropharynx - Neck Exam Neck exam: Positive for: Full Rom - Respiratory Exam Respiratory Exam: Clear to Auscultation Bilateral, NORMAL BREATHING PATTERN - Cardiovascular Exam Cardiovascular Exam: RRR, +S1, +S2 - GI/Abdominal Exam GI & Abdominal Exam: Normal Bowel Sounds, Soft Additional comments: NT, ND - Extremities Exam Extremities exam: Positive for: normal inspection - Back Exam Additional comments: b/l nephrostomy tubes present/ no erythema , no discharge stage 1 sacral decub , no malodor - Neurological Exam Neurological exam: Alert, Oriented x3 Results - Vital Signs Recent Vital Signs: Last Vital Signs Temp 99.4 F 04/18/18 07:58 Pulse 84 04/18/18 07:58 Resp 20 04/18/18 07:58 BP 145/71 04/18/18 07:58 Pulse Ox 98 04/18/18 07:58 - Labs Result Diagrams: 04/18/18 05:35 04/18/18 05:35 Labs: Laboratory Results - last 24 hr 04/17/18 04/17/18 04/17/18 12:00 14:00 14:00 WBC 1.4 L* D RBC 2.59 L Hgb 8.0 L Hct 23.3 L MCV 90.1 MCH 30.8 MCHC 34.2 RDW 18.8 H Plt Count 79 L MPV 5.9 L Neut % (Auto) 64.9 Lymph % (Auto) 30.2 [place] % (Auto) 1.5 Eos % (Auto) 0.8 Baso % (Auto) 2.6 H Neut # (Auto) 0.9 L Lymph # (Auto) 0.4 L [place] # (Auto) 0.0 Eos # (Auto) 0.0 Baso # (Auto) 0.0 PT INR APTT Sodium 136 Potassium 4.4 Chloride 104 Carbon Dioxide 22 Anion Gap 14 BUN 32 H Creatinine 1.2 Est GFR ( Amer) > 60 Est GFR (Non-Af Amer) 58 POC Glucose (mg/dL) Random Glucose 97 Calcium 8.3 L Phosphorus Magnesium Total Bilirubin 1.0 AST 101 H D ALT 35 Alkaline Phosphatase 1233 H Total Protein 6.5 Albumin 3.4 L D Globulin 3.1 Albumin/Globulin Ratio 1.1 Urine Color Yellow Urine Clarity Cloudy Urine pH 6.0 Ur Specific [place] 1.016 Urine Protein 100 Urine Glucose (UA) Neg Urine Ketones Negative Urine Blood Large Urine Nitrate Positive H Urine Bilirubin Negative Urine Urobilinogen 0.2-1.0 Ur Leukocyte Esterase Trace Urine RBC (Auto) 1054 H Urine Microscopic WBC 18 H Amorphous Sediment Occ H Urine Bacteria Occ H 04/17/18 04/17/18 04/18/18 14:00 22:00 05:35 WBC 1.4 L* RBC 2.36 L Hgb 7.2 L Hct 21.2 L MCV 89.8 MCH 30.4 MCHC 33.8 RDW 18.7 H Plt Count 53 L D MPV 6.0 L Neut % (Auto) 60.8 Lymph % (Auto) 33.5 [place] % (Auto) 2.6 Eos % (Auto) 1.3 Baso % (Auto) 1.8 Neut # (Auto) 0.8 L Lymph # (Auto) 0.5 L [place] # (Auto) 0.0 Eos # (Auto) 0.0 Baso # (Auto) 0.0 PT 22.1 H INR 2.0 APTT 51.9 H Sodium Potassium Chloride Carbon Dioxide Anion Gap BUN Creatinine Est GFR ( Amer) Est GFR (Non-Af Amer) POC Glucose (mg/dL) 106 Random Glucose Calcium Phosphorus Magnesium Total Bilirubin AST ALT Alkaline Phosphatase Total Protein Albumin Globulin Albumin/Globulin Ratio Urine Color Urine Clarity Urine pH Ur Specific [place] Urine Protein Urine Glucose (UA) Urine Ketones Urine Blood Urine Nitrate Urine Bilirubin Urine Urobilinogen Ur Leukocyte Esterase Urine RBC (Auto) Urine Microscopic WBC Amorphous Sediment Urine Bacteria 04/18/18 04/18/18 05:35 11:24 WBC RBC Hgb Hct MCV MCH MCHC RDW Plt Count MPV Neut % (Auto) Lymph % (Auto) [place] % (Auto) Eos % (Auto) Baso % (Auto) Neut # (Auto) Lymph # (Auto) [place] # (Auto) Eos # (Auto) Baso # (Auto) PT INR APTT Sodium 137 Potassium 4.2 Chloride 104 Carbon Dioxide 25 Anion Gap 12 BUN 27 H Creatinine 1.2 Est GFR ( Amer) > 60 Est GFR (Non-Af Amer) 58 POC Glucose (mg/dL) 149 H Random Glucose 101 Calcium 8.4 Phosphorus 3.1 Magnesium 1.9 Total Bilirubin 1.0 AST 62 H D ALT 27 Alkaline Phosphatase 1189 H Total Protein 6.1 L Albumin 3.1 L Globulin 3.0 Albumin/Globulin Ratio 1.0 Urine Color Urine Clarity Urine pH Ur Specific [place] Urine Protein Urine Glucose (UA) Urine Ketones Urine Blood Urine Nitrate Urine Bilirubin Urine Urobilinogen Ur Leukocyte Esterase Urine RBC (Auto) Urine Microscopic WBC Amorphous Sediment Urine Bacteria Laboratory Results - last 72 hr 04/17/18 04/17/18 04/17/18 12:00 14:00 14:00 WBC 1.4 L* D RBC 2.59 L Hgb 8.0 L Hct 23.3 L MCV 90.1 MCH 30.8 MCHC 34.2 RDW 18.8 H Plt Count 79 L MPV 5.9 L Neut % (Auto) 64.9 Lymph % (Auto) 30.2 [place] % (Auto) 1.5 Eos % (Auto) 0.8 Baso % (Auto) 2.6 H Neut # (Auto) 0.9 L Lymph # (Auto) 0.4 L [place] # (Auto) 0.0 Eos # (Auto) 0.0 Baso # (Auto) 0.0 PT INR APTT Sodium 136 Potassium 4.4 Chloride 104 Carbon Dioxide 22 Anion Gap 14 BUN 32 H Creatinine 1.2 Est GFR ( Amer) > 60 Est GFR (Non-Af Amer) 58 POC Glucose (mg/dL) Random Glucose 97 Calcium 8.3 L Phosphorus Magnesium Total Bilirubin 1.0 AST 101 H D ALT 35 Alkaline Phosphatase 1233 H Total Protein 6.5 Albumin 3.4 L D Globulin 3.1 Albumin/Globulin Ratio 1.1 Urine Color Yellow Urine Clarity Cloudy Urine pH 6.0 Ur Specific [place] 1.016 Urine Protein 100 Urine Glucose (UA) Neg Urine Ketones Negative Urine Blood Large Urine Nitrate Positive H Urine Bilirubin Negative Urine Urobilinogen 0.2-1.0 Ur Leukocyte Esterase Trace Urine RBC (Auto) 1054 H Urine Microscopic WBC 18 H Amorphous Sediment Occ H Urine Bacteria Occ H 04/17/18 04/17/18 04/18/18 14:00 22:00 05:35 WBC 1.4 L* RBC 2.36 L Hgb 7.2 L Hct 21.2 L MCV 89.8 MCH 30.4 MCHC 33.8 RDW 18.7 H Plt Count 53 L D MPV 6.0 L Neut % (Auto) 60.8 Lymph % (Auto) 33.5 [place] % (Auto) 2.6 Eos % (Auto) 1.3 Baso % (Auto) 1.8 Neut # (Auto) 0.8 L Lymph # (Auto) 0.5 L [place] # (Auto) 0.0 Eos # (Auto) 0.0 Baso # (Auto) 0.0 PT 22.1 H INR 2.0 APTT 51.9 H Sodium Potassium Chloride Carbon Dioxide Anion Gap BUN Creatinine Est GFR ( Amer) Est GFR (Non-Af Amer) POC Glucose (mg/dL) 106 Random Glucose Calcium Phosphorus Magnesium Total Bilirubin AST ALT Alkaline Phosphatase Total Protein Albumin Globulin Albumin/Globulin Ratio Urine Color Urine Clarity Urine pH Ur Specific [place] Urine Protein Urine Glucose (UA) Urine Ketones Urine Blood Urine Nitrate Urine Bilirubin Urine Urobilinogen Ur Leukocyte Esterase Urine RBC (Auto) Urine Microscopic WBC Amorphous Sediment Urine Bacteria 04/18/18 04/18/18 05:35 11:24 WBC RBC Hgb Hct MCV MCH MCHC RDW Plt Count MPV Neut % (Auto) Lymph % (Auto) [place] % (Auto) Eos % (Auto) Baso % (Auto) Neut # (Auto) Lymph # (Auto) [place] # (Auto) Eos # (Auto) Baso # (Auto) PT INR APTT Sodium 137 Potassium 4.2 Chloride 104 Carbon Dioxide 25 Anion Gap 12 BUN 27 H Creatinine 1.2 Est GFR ( Amer) > 60 Est GFR (Non-Af Amer) 58 POC Glucose (mg/dL) 149 H Random Glucose 101 Calcium 8.4 Phosphorus 3.1 Magnesium 1.9 Total Bilirubin 1.0 AST 62 H D ALT 27 Alkaline Phosphatase 1189 H Total Protein 6.1 L Albumin 3.1 L Globulin 3.0 Albumin/Globulin Ratio 1.0 Urine Color Urine Clarity Urine pH Ur Specific [place] Urine Protein Urine Glucose (UA) Urine Ketones Urine Blood Urine Nitrate Urine Bilirubin Urine Urobilinogen Ur Leukocyte Esterase Urine RBC (Auto) Urine Microscopic WBC Amorphous Sediment Urine Bacteria Microbiology 03/25/18 13:45 Back Gram Stain - Final 03/25/18 13:45 Back Wound Culture - Final Staphylococcus Aureus Corynebacterium Species 03/25/18 13:15 Urine,Veliz Urine Culture - Final Staphylococcus Aureus 03/25/18 12:24 Blood Blood Culture - Final NO GROWTH AFTER 5 DAYS 02/12/18 11:57 Urine,Catheterized Urine Culture - Final Staphylococcus Aureus Accession No. : [id number] Patient Name / ID : GWENDOLYN BLANCA / [id number] Exam Date : 04/17/2018 16:14:21 ( Approved ) Study Comment : Sex / Age : M / 78Y Creator : Ferdinand Champion MD Dictator : Ferdinand Champion MD Dairy Bacteriologist : Puppy Trainer : Ferdinand Champion MD Approver2 : Report Date : 04/18/2018 10:01:21 My Comment : Date of service: 04/17/2018 PROCEDURE: CT Abdomen and Pelvis with contrast HISTORY: Back pain, bilateral nephrostomy tubes COMPARISON: Abdomen pelvis CT with contrast 03/25/2018. TECHNIQUE: Following the intravenous administration of iodinated contrast material, a CT examination of the abdomen and pelvis performed from the domes of the diaphragms to the symphysis pubis with reformatted datasets provided in axial, sagittal and coronal planes. Oral contrast was not administered as per referring physician request. Contrast dose: Omnipaque 300, 95 cc Radiation dose: Total exam DLP = 440.75 mGy-cm. This CT exam was performed using one or more of the following dose reduction techniques: Automated exposure control, adjustment of the mA and/or kV according to patient size, and/or use of iterative reconstruction technique. FINDINGS: LOWER THORAX: Reiterated limited emphysematous changes bilateral bases. Fibrotic changes are reiterated at the right lower lobe and appear further diminished in volume in the interval. LIVER: Unremarkable. No gross lesion or ductal dilatation. GALLBLADDER AND BILE DUCTS: The gallbladder is rather distended once again. No interval pericholecystic fluid collection or mural thickening. PANCREAS: Unremarkable. No gross lesion or ductal dilatation. SPLEEN: Unremarkable. ADRENALS: Unremarkable. No mass. KIDNEYS AND URETERS: Bilateral nephrostomies remain in situ. No hydronephrosis. Streaky perinephric changes are reiterated bilaterally and remain minimal. There is mild prominence of the proximal left ureter without radiodense calculus demonstrated obstructing the left ureter. VASCULATURE: Unremarkable. No aortic aneurysm. BOWEL: Relatively prominent fecal loading seen throughout the colon. No bowel obstruction apparent, however, consider constipation. The stomach is collapsed once again appear small hiatal hernia is seen related. APPENDIX: Normal appendix. PERITONEUM: Unremarkable. No free fluid. No free air. LYMPH NODES: Moderate retroperitoneal lymphadenopathy is reiterated including the distal left lateral/periaortic lymph node measuring 3.4 x 2.6 cm. BLADDER: Urinary bladder remains moral largely decompressed with gross mural thickening again seen in the periphery. REPRODUCTIVE: Stable prominent enlargement of prostate gland reiterated. BONES: Diffuse osteoblastic metastasis reiterated with stable limited spondylolisthesis L4-5. OTHER FINDINGS: None. IMPRESSION: 1. Diffuse osteoblastic metastasis reiterated with stable grade 1 spondylolisthesis L4-5 also noted. 2. Stable moderate retroperitoneal lymphadenopathy. 3. No definite hydronephrosis bilaterally though mild dilatation of the proximal left ureters evident of an indeterminate etiology. Stable appearance to bilateral nephrostomy deployment. 4. Thickened urinary bladder reiterated potentially from cystitis, other obstruction or neoplasm. 5. Enlarged prostate gland reiterated. 6. Other lesser findings as discussed above. Accession No. : [id number] Patient Name / ID : GWENDOLYN BLANCA / [id number] Exam Date : 04/17/2018 12:52:19 ( Approved ) Study Comment : Sex / Age : M / 78Y Creator : Dano Quarles MD Dictator : Dano Quarles MD Dairy Bacteriologist : Puppy Trainer : Dano Quarles MD Approver2 : Report Date : 04/18/2018 11:30:04 My Comment : Date of service: 04/17/2018 PROCEDURE: Bilateral lower extremity venous duplex Doppler. HISTORY: Leg swelling COMPARISON: None available. TECHNIQUE: Bilateral common femoral, superficial femoral, popliteal and posterior tibial veins were evaluated. Flow was assessed with color Doppler, compressibility, assessment of phasic flow and augmentation response. FINDINGS: COMMON FEMORAL VEIN: Right CFV: Unremarkable. Left CFV: Unremarkable. SUPERFICIAL FEMORAL VEIN: Right SFV: Unremarkable. Left SFV: Unremarkable. POPLITEAL VEIN: Right Popliteal: Unremarkable. Left Popliteal: Unremarkable. POSTERIOR TIBIAL VEIN: Right PTV: Unremarkable. Left PTV: Unremarkable. OTHER FINDINGS: None. IMPRESSION: No evidence of deep venous thrombosis. Accession No. : [id number] Patient Name / ID : GWENDOLYN BLANCA / [id number] Exam Date : 04/17/2018 16:37:02 ( Approved ) Study Comment : Sex / Age : M / 78Y Creator : Ferdinand Champion MD Dictator : Ferdinand Champion MD Dairy Bacteriologist : Puppy Trainer : Ferdinand Champion MD Approver2 : Report Date : 04/18/2018 08:26:41 My Comment : Date of service: 04/17/2018 HISTORY: Back pain COMPARISON: Portable chest 03/25/2018. FINDINGS: LUNGS: Increased reticular markings at the bilateral bases may reflect platelike atelectasis. Borderline alveolitis medial right base. No left sided airspace disease identified. PLEURA: No significant pleural effusion identified, no pneumothorax apparent. CARDIOVASCULAR: Right MediPort catheter is stable. No pulmonary vascular congestion or interval cardiomegaly. OSSEOUS STRUCTURES: No significant abnormalities. VISUALIZED UPPER ABDOMEN: Normal. OTHER FINDINGS: None. IMPRESSION: Platelike atelectasis is question in the bilateral bases with borderline alveolitis medial right base. Assessment & Plan (1) Complicated UTI (urinary tract infection) Status: Acute (2) Urinary tract infection associated with nephrostomy catheter Status: Acute (3) Bladder cancer Status: Chronic (4) Leukopenia Status: Acute (5) Back pain Status: Acute - Assessment and Plan (Free Text) Assessment: A/P- 78 year old male with 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 afebrile Leukopenia but not neutropenic + UA CXR report noted, abd/pelvic Ct report noted. previous admission urine cx- MSSA and E.feclais and corynebacterium. plan- advise to cover for MSSA as this was predominant in previous admission urine cx . start IV vancomycin (renal does). keep trough <15. no objection to continuing with empiric meropenem that was initiated by the primary doc pending cx results and also in light of the cxr findings would cover for HAP as well. check sputum cx. check blood cx x 2. check urine cx . wound care nurse for stage 1 sacral decub. All above d/w patient and he verbalizes full understanding of all above. Thank you for allowing me to take part in the care of this patient.
--- NOTE | 2018-04-18 21:55 | CP.PCM.CON ---
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 He has been receiving chemotherapy with carboplatin and gemcitabine. He notes to recent nephrostomy tube exchange but continued back pain. He continues to have a poor appetite. He denies N/V/D. Past medical history: DM, urothelial cancer Past surgical history: Hernia repair Family history: Denies hematologic and oncologic problems Social history: Former tobacco, denies alcohol, and illicit drug use. Allergies: Aspirin Review of systems: All remaining review of systems including HEENT, cardiovascular, respiratory, gastrointestinal, genitourinary, musculoskeletal, dermatologic, neurologic, and psychiatric are negative unless mentioned in the HPI. Past Patient History - Infectious Disease Hx of Infectious Diseases: None - Past Medical History & Family History Past Medical History?: Yes - Past Social History Smoking Status: Former Smoker Alcohol: None Home Situation {Lives}: With Family - CARDIAC Hx Peripheral Edema: Yes (BLE) - PULMONARY Hx Respiratory Disorders: No - NEUROLOGICAL Hx Neurological Disorder: No - HEENT Hx HEENT Problems: No - RENAL Hx Chronic Kidney Disease: No - ENDOCRINE/METABOLIC Hx Endocrine Disorders: Yes Hx Diabetes Mellitus Type 2: Yes - HEMATOLOGICAL/ONCOLOGICAL Hx Anemia: Yes - INTEGUMENTARY Hx Dermatological Problems: No - MUSCULOSKELETAL/RHEUMATOLOGICAL Hx Musculoskeletal Disorders: No Hx Falls: No - GASTROINTESTINAL Hx Gastrointestinal Disorders: No Other/Comment: TURBT - GENITOURINARY/GYNECOLOGICAL Hx Genitourinary Disorders: Yes Hx Bladder Cancer: Yes (bilateral nephrostomy tube) - PSYCHIATRIC Hx Depression: Yes - SURGICAL HISTORY Hx Surgeries: Yes Hx Herniorrhaphy: Yes (> 20 YRS AGO) Other/Comment: Hx TURBT with 07/2017. Hx cystoscopy - Transurethral resection of bladder tumor 12/06/17. Hx Bilateral Nephrostomy tube excharge 03/30. Right portacath - ANESTHESIA Hx Anesthesia: Yes Hx Anesthesia Reactions: No Hx Malignant Hyperthermia: No Meds Allergies/Adverse Reactions: Allergies Allergy/AdvReac Type Severity Reaction Status Date / Time aspirin Allergy DIZZINESS Verified 04/17/18 12:08 - Medications Medications: Current Medications Meropenem 500 mg/ Sodium (Chloride) 100 mls @ 100 mls/hr IVPB Q12 MIKE PRN Reason: Protocol Last Admin: 04/18/18 20:31 Dose: 100 mls/hr Vancomycin HCl 500 mg/ Sodium (Chloride) 100 mls @ 100 mls/hr IVPB Q12 MIKE PRN Reason: Protocol Last Admin: 04/18/18 21:10 Dose: 100 mls/hr Morphine Sulfate (Morphine) 2 mg IVP Q4 PRN PRN Reason: Pain, severe (8-10) Last Admin: 04/18/18 21:10 Dose: 2 mg Oxycodone HCl (Oxycontin Extended Release Tab) 10 mg PO Q12 MIKE Stop: 04/21/18 09:01 Last Admin: 04/18/18 20:30 Dose: 10 mg Oxycodone HCl (Oxycodone Immediate Release Tab) 10 mg PO Q6 PRN PRN Reason: Pain, moderate (4-7) Last Admin: 04/18/18 00:21 Dose: 10 mg Tamsulosin HCl (Flomax) 0.4 mg PO HS [facility] Last Admin: 04/18/18 21:14 Dose: 0.4 mg Physical Exam - Head Exam Head Exam: ATRAUMATIC - Eye Exam Eye Exam: Normal appearance - ENT Exam ENT Exam: Mucous Membranes Dry - Respiratory Exam Respiratory Exam: NORMAL BREATHING PATTERN - Cardiovascular Exam Cardiovascular Exam: +S1, +S2 - GI/Abdominal Exam GI & Abdominal Exam: Normal Bowel Sounds - Extremities Exam Extremities exam: Positive for: normal inspection - Neurological Exam Neurological exam: Oriented x3 - Psychiatric Exam Psychiatric exam: Normal Affect, Normal Mood - Skin Skin Exam: Warm Results - Vital Signs Recent Vital Signs: Last Vital Signs Temp 97.9 F 04/18/18 16:12 Pulse 84 04/18/18 16:12 Resp 20 04/18/18 16:12 BP 137/56 L 04/18/18 16:12 Pulse Ox 98 04/18/18 16:12 - Labs Result Diagrams: 04/18/18 05:35 04/18/18 05:35 Labs: Laboratory Results - last 24 hr 04/17/18 04/18/18 04/18/18 22:00 05:35 05:35 WBC 1.4 L* RBC 2.36 L Hgb 7.2 L Hct 21.2 L MCV 89.8 MCH 30.4 MCHC 33.8 RDW 18.7 H Plt Count 53 L D MPV 6.0 L Neut % (Auto) 60.8 Lymph % (Auto) 33.5 [place] % (Auto) 2.6 Eos % (Auto) 1.3 Baso % (Auto) 1.8 Neut # (Auto) 0.8 L Lymph # (Auto) 0.5 L [place] # (Auto) 0.0 Eos # (Auto) 0.0 Baso # (Auto) 0.0 Sodium 137 Potassium 4.2 Chloride 104 Carbon Dioxide 25 Anion Gap 12 BUN 27 H Creatinine 1.2 Est GFR ( Amer) > 60 Est GFR (Non-Af Amer) 58 POC Glucose (mg/dL) 106 Random Glucose 101 Calcium 8.4 Phosphorus 3.1 Magnesium 1.9 Total Bilirubin 1.0 AST 62 H D ALT 27 Alkaline Phosphatase 1189 H Total Protein 6.1 L Albumin 3.1 L Globulin 3.0 Albumin/Globulin Ratio 1.0 04/18/18 11:24 WBC RBC Hgb Hct MCV MCH MCHC RDW Plt Count MPV Neut % (Auto) Lymph % (Auto) [place] % (Auto) Eos % (Auto) Baso % (Auto) Neut # (Auto) Lymph # (Auto) [place] # (Auto) Eos # (Auto) Baso # (Auto) Sodium Potassium Chloride Carbon Dioxide Anion Gap BUN Creatinine Est GFR ( Amer) Est GFR (Non-Af Amer) POC Glucose (mg/dL) 149 H Random Glucose Calcium Phosphorus Magnesium Total Bilirubin AST ALT Alkaline Phosphatase Total Protein Albumin Globulin Albumin/Globulin Ratio Assessment & Plan (1) Pancytopenia Assessment and Plan: secondary to recent chemotherapy and bone metastasis will plan to transfuse 2U PRBC in AM given declining H/H Status: Acute (2) Bladder cancer Assessment and Plan: stage IV LN and bone mets stable disease by CT A/P; will add CT chest once renal function better on outpatient chemotherapy Thank you for this interesting consult. Status: Chronic
[2018-04-19 07:00] LABS: BASO % 1.8 % (0.0-2.0); EOS % 1.9 % (0.0-4.0); HEMOGLOBIN 6.6 g/dL (12.0-18.0); LYMPH # 0.7 K/uL (1.0-4.3); LYMPH % 42.7 % (20.0-40.0); MEAN CELL VOLUME 89.7 fl (80.0-94.0); MEAN CORPUSCULAR HEMOGLOBIN 30.6 pg (27.0-31.0); MEAN CORPUSCULAR HGB CONC 34.1 g/dL (33.0-37.0); MEAN PLATELET VOLUME 6.2 fl (7.2-11.7); MONO # 0.1 K/uL (0.0-0.8); MONO % 6.1 % (0.0-10.0); NEUT # 0.8 K/uL (1.8-7.0); NEUT % 47.5 % (50.0-75.0); RBC 2.14 Mil/uL (4.40-5.90); RED CELL DISTRIBUTION WIDTH 18.8 % (11.5-14.5)
[2018-04-19 07:26] LABS: WHITE BLOOD COUNT 1.6 K/uL (4.8-10.8)
--- NOTE | 2018-04-19 07:37 | CP.PCM.CON ---
History of Present Illness - History of Present Illness History of Present Illness: URLOLGY Called to evaluate this patient for UTI. He has a history of metastatic carcinoma of the bladder currently on chemotherapy and with bilateral nephrostomies for urine drainage as his internal ureteral orifices have been obliterated by the tumor itself.Upon admission a urine C&S was obtained showing E.Coli strain however no sensitivity was reported and would be helpful in selecting appropiate antibiotic coverage. In addition his serum WBC count is very low indicating immune compromise probably secondary to chemo.. Ct shows well placed nephrostomy tubes with no hydronephrosis. Treatment of UTI should be based on appropiate IV antibiotics Past Patient History - Infectious Disease Hx of Infectious Diseases: None - Past Medical History & Family History Past Medical History?: Yes - Past Social History Smoking Status: Former Smoker Alcohol: None Home Situation {Lives}: With Family - CARDIAC Hx Peripheral Edema: Yes (BLE) - PULMONARY Hx Respiratory Disorders: No - NEUROLOGICAL Hx Neurological Disorder: No - HEENT Hx HEENT Problems: No - RENAL Hx Chronic Kidney Disease: No - ENDOCRINE/METABOLIC Hx Endocrine Disorders: Yes Hx Diabetes Mellitus Type 2: Yes - HEMATOLOGICAL/ONCOLOGICAL Hx Anemia: Yes - INTEGUMENTARY Hx Dermatological Problems: No - MUSCULOSKELETAL/RHEUMATOLOGICAL Hx Musculoskeletal Disorders: No Hx Falls: No - GASTROINTESTINAL Hx Gastrointestinal Disorders: No Other/Comment: TURBT - GENITOURINARY/GYNECOLOGICAL Hx Genitourinary Disorders: Yes Hx Bladder Cancer: Yes (bilateral nephrostomy tube) - PSYCHIATRIC Hx Depression: Yes - SURGICAL HISTORY Hx Surgeries: Yes Hx Herniorrhaphy: Yes (> 20 YRS AGO) Other/Comment: Hx TURBT with 07/2017. Hx cystoscopy - Transurethral resection of bladder tumor 12/06/17. Hx Bilateral Nephrostomy tube excharge 03/30. Right portacath - ANESTHESIA Hx Anesthesia: Yes Hx Anesthesia Reactions: No Hx Malignant Hyperthermia: No Meds Allergies/Adverse Reactions: Allergies Allergy/AdvReac Type Severity Reaction Status Date / Time aspirin Allergy DIZZINESS Verified 04/17/18 12:08 - Medications Medications: Current Medications Meropenem 500 mg/ Sodium (Chloride) 100 mls @ 100 mls/hr IVPB Q12 [facility] PRN Reason: Protocol Last Admin: 04/18/18 20:31 Dose: 100 mls/hr Vancomycin HCl 500 mg/ Sodium (Chloride) 100 mls @ 100 mls/hr IVPB Q12 [facility] PRN Reason: Protocol Last Admin: 04/18/18 21:10 Dose: 100 mls/hr Morphine Sulfate (Morphine) 2 mg IVP Q4 PRN PRN Reason: Pain, severe (8-10) Last Admin: 04/19/18 02:36 Dose: 2 mg Oxycodone HCl (Oxycontin Extended Release Tab) 10 mg PO Q12 [facility] Stop: 04/21/18 09:01 Last Admin: 04/18/18 20:30 Dose: 10 mg Oxycodone HCl (Oxycodone Immediate Release Tab) 10 mg PO Q6 PRN PRN Reason: Pain, moderate (4-7) Last Admin: 04/18/18 00:21 Dose: 10 mg Tamsulosin HCl (Flomax) 0.4 mg PO HS [facility] Last Admin: 04/18/18 21:14 Dose: 0.4 mg Results - Vital Signs Recent Vital Signs: Last Vital Signs Temp 98.5 F 04/19/18 01:00 Pulse 85 04/19/18 01:00 Resp 18 04/19/18 01:00 BP 137/69 04/19/18 01:00 Pulse Ox 97 04/19/18 01:00 - Labs Result Diagrams: 04/18/18 05:35 04/18/18 05:35 Labs: Laboratory Results - last 24 hr 04/17/18 04/18/18 04/19/18 22:00 11:24 05:55 POC Glucose (mg/dL) 106 149 H BBK History Checked Patient has bt
[2018-04-19] MEDS: oxyCODONE 10 mg ER Tab (oxyCONTIN) PO SCH ×3 (09:24→21:00)
[2018-04-19] MEDS: Meropenem 500 MG in Sodium Chloride 0.9% 100 ML IVPB SCH ×2 (09:26→20:53)
--- NOTE | 2018-04-19 10:26 | CP.PCM.HP ---
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 He has been receiving chemotherapy with Carboplatin and Gemcitabine. He notes to recent Nephrostomy tube exchange but continued back pain. He continues to have a poor appetite. He denies N/V/D. Present on Admission - Present on Admission Any Indicators Present on Admission: Yes Urinary Catheter: Yes (Bladder Cancer) Review of Systems - Review of Systems All systems: reviewed and no additional remarkable complaints except Review of Systems: except as per HPI Past Patient History - Infectious Disease Hx of Infectious Diseases: None - Past Medical History & Family History Past Medical History?: Yes Past Family History: Reviewed and not pertinent - Past Social History Smoking Status: Former Smoker Alcohol: None Drugs: Denies Home Situation {Lives}: With Family - CARDIAC Hx Peripheral Edema: Yes (BLE) - PULMONARY Hx Respiratory Disorders: No - NEUROLOGICAL Hx Neurological Disorder: No - HEENT Hx HEENT Problems: No - RENAL Hx Chronic Kidney Disease: No - ENDOCRINE/METABOLIC Hx Endocrine Disorders: Yes Hx Diabetes Mellitus Type 2: Yes - HEMATOLOGICAL/ONCOLOGICAL Hx Anemia: Yes - INTEGUMENTARY Hx Dermatological Problems: No - MUSCULOSKELETAL/RHEUMATOLOGICAL Hx Musculoskeletal Disorders: No Hx Falls: No - GASTROINTESTINAL Hx Gastrointestinal Disorders: No Other/Comment: TURBT - GENITOURINARY/GYNECOLOGICAL Hx Genitourinary Disorders: Yes Hx Bladder Cancer: Yes (bilateral nephrostomy tube) - PSYCHIATRIC Hx Depression: Yes - SURGICAL HISTORY Hx Surgeries: Yes Hx Herniorrhaphy: Yes (> 20 YRS AGO) Other/Comment: Hx TURBT with 07/2017. Hx cystoscopy - Transurethral resection of bladder tumor 12/06/17. Hx Bilateral Nephrostomy tube excharge 03/30. Right portacath - ANESTHESIA Hx Anesthesia: Yes Hx Anesthesia Reactions: No Hx Malignant Hyperthermia: No Meds Allergies/Adverse Reactions: Allergies Allergy/AdvReac Type Severity Reaction Status Date / Time aspirin Allergy DIZZINESS Verified 04/17/18 12:08 Physical Exam - Constitutional Appears: Well, No Acute Distress - Head Exam Head Exam: ATRAUMATIC, NORMAL INSPECTION, NORMOCEPHALIC - Eye Exam Eye Exam: EOMI, Normal appearance, PERRL Pupil Exam: NORMAL ACCOMODATION, PERRL - ENT Exam ENT Exam: Mucous Membranes Moist, Normal Exam - Neck Exam Neck exam: Positive for: Normal Inspection - Respiratory Exam Respiratory Exam: Clear to Auscultation Bilateral, NORMAL BREATHING PATTERN - Cardiovascular Exam Cardiovascular Exam: REGULAR RHYTHM, +S1, +S2 - GI/Abdominal Exam GI & Abdominal Exam: Normal Bowel Sounds, Soft. absent: Tenderness - Exam Additional comments: B/L - Extremities Exam Extremities exam: Positive for: full ROM, normal capillary refill, normal inspection - Back Exam Back exam: FULL ROM, NORMAL INSPECTION - Neurological Exam Neurological exam: Alert, CN II-XII Intact, Normal Gait, Oriented x3, Reflexes Normal - Psychiatric Exam Psychiatric exam: Normal Affect, Normal Mood - Skin Skin Exam: Dry, Intact, Normal Color, Warm Results - Vital Signs Recent Vital Signs: Last Vital Signs Temp 97.6 F 04/19/18 08:20 Pulse 82 04/19/18 08:20 Resp 18 04/19/18 08:20 BP 135/56 L 04/19/18 08:20 Pulse Ox 98 04/19/18 08:20 - Labs Result Diagrams: 04/19/18 05:15 04/18/18 05:35 Labs: Laboratory Results - last 24 hr 04/17/18 04/18/18 04/19/18 22:00 11:24 05:15 WBC 1.6 L* RBC 2.14 L Hgb 6.6 L Hct 19.2 L MCV 89.7 MCH 30.6 MCHC 34.1 RDW 18.8 H Plt Count 39 L MPV 6.2 L Neut % (Auto) 47.5 L Lymph % (Auto) 42.7 H [place] % (Auto) 6.1 Eos % (Auto) 1.9 Baso % (Auto) 1.8 Neut # (Auto) 0.8 L Lymph # (Auto) 0.7 L [place] # (Auto) 0.1 Eos # (Auto) 0.0 Baso # (Auto) 0.0 POC Glucose (mg/dL) 106 149 H Blood Type Antibody Screen Crossmatch BBK History Checked 04/19/18 05:55 WBC RBC Hgb Hct MCV MCH MCHC RDW Plt Count MPV Neut % (Auto) Lymph % (Auto) [place] % (Auto) Eos % (Auto) Baso % (Auto) Neut # (Auto) Lymph # (Auto) [place] # (Auto) Eos # (Auto) Baso # (Auto) POC Glucose (mg/dL) Blood Type B POSITIVE Antibody Screen Negative Crossmatch See Detail BBK History Checked Patient has bt - EKG Data EKG shows normal: Sinus rhythm, [place], Intervals, QRS complexes, ST-T waves Rate: Normal - Imaging and Cardiology Abdominal/Peelvis with PO/IV Contrast: Status: Report reviewed by me Additional comment: CT Abdomen and Pelvis with contrast HISTORY: Back pain, bilateral nephrostomy tubes COMPARISON: Abdomen pelvis CT with contrast 03/25/2018. IMPRESSION: 1. Diffuse Osteoblastic Metastasis reiterated with stable grade 1 spondylolisthesis L4-5 also noted. 2. Stable moderate retroperitoneal lymphadenopathy. 3. No definite hydronephrosis bilaterally though mild dilatation of the proximal left ureters evident of an indeterminate etiology. Stable appearance to bilateral nephrostomy deployment. 4. Thickened urinary bladder reiterated potentially from cystitis, other obstruction or neoplasm. 5. Enlarged prostate gland reiterated. U/S Venous Doppler: Status: Report reviewed by me Additional comment: Bilateral lower extremity venous duplex Doppler. HISTORY: Leg swelling COMPARISON: None available. TECHNIQUE: Bilateral common femoral, superficial femoral, popliteal and posterior tibial veins were evaluated. Flow was assessed with color Doppler, compressibility, assessment of phasic flow and augmentation response. FINDINGS: COMMON FEMORAL VEIN: Right CFV: Unremarkable. Left CFV: Unremarkable. SUPERFICIAL FEMORAL VEIN: Right SFV: Unremarkable. Left SFV: Unremarkable. POPLITEAL VEIN: Right Popliteal: Unremarkable. Left Popliteal: Unremarkable. POSTERIOR TIBIAL VEIN: Right PTV: Unremarkable. Left PTV: Unremarkable. OTHER FINDINGS: None. IMPRESSION: No evidence of deep venous thrombosis. Assessment & Plan (1) Urinary tract infection associated with nephrostomy catheter Assessment and Plan: Intractable Back Pain Most Likely mets Vs UTI / Nephrostomy IVF IV Merem / Vancomycin Urine Blood Cultures Urology and ID Consulted Status: Acute Priority: High (2) Pancytopenia Assessment and Plan: Due to Chemotherapy May need Transfusion Repeat CBC with Diff Hem/Onc Consult Status: Acute Priority: High (3) Bladder cancer Assessment and Plan: On Chemotherapy Status: Chronic Priority: High
--- NOTE | 2018-04-19 10:54 | CP.PCM.PN ---
Subjective - Date & Time of Evaluation Date of Evaluation: 04/19/18 Time of Evaluation: 10:54 - Subjective Subjective: ID Note- Pt. seen and examined today. slightly better today. Objective - Vital Signs/Intake and Output Vital Signs (last 24 hours): Temp Pulse Resp BP Pulse Ox 97.7 F 76 18 118/63 98 04/19/18 10:40 04/19/18 10:40 04/19/18 10:40 04/19/18 10:40 04/19/18 08:20 Intake and Output: 04/19/18 04/19/18 06:59 18:59 Intake Total 0 Output Total 600 Balance -600 0 - Medications Medications: Current Medications Meropenem 500 mg/ Sodium (Chloride) 100 mls @ 100 mls/hr IVPB Q12 [facility] PRN Reason: Protocol Last Admin: 04/19/18 09:26 Dose: 100 mls/hr Vancomycin HCl 500 mg/ Sodium (Chloride) 100 mls @ 100 mls/hr IVPB Q12 [facility]KE PRN Reason: Protocol Last Admin: 04/19/18 09:34 Dose: 100 mls/hr Morphine Sulfate (Morphine) 2 mg IVP Q4 PRN PRN Reason: Pain, severe (8-10) Last Admin: 04/19/18 09:41 Dose: 2 mg Oxycodone HCl (Oxycontin Extended Release Tab) 10 mg PO Q12 [facility] Stop: 04/21/18 09:01 Last Admin: 04/19/18 09:30 Dose: Not Given Oxycodone HCl (Oxycodone Immediate Release Tab) 10 mg PO Q6 PRN PRN Reason: Pain, moderate (4-7) Last Admin: 04/18/18 00:21 Dose: 10 mg Tamsulosin HCl (Flomax) 0.4 mg PO HS [facility] Last Admin: 04/18/18 21:14 Dose: 0.4 mg - Labs Labs: 04/19/18 05:15 Microbiology 04/19/18 07:27 Sputum Gram Stain - Preliminary 04/17/18 12:00 Urine,Veliz Urine Culture - Final Serratia Marcescens 04/18/18 05:35 PT 22.1 Seconds (9.8-13.1) H 04/17/18 14:00 INR 2.0 04/17/18 14:00 APTT 51.9 Seconds (25.6-37.1) H 04/17/18 14:00 - Additional Findings Additional findings: - Constitutional Appears: Chronically Ill - Head Exam Head Exam: ATRAUMATIC - Eye Exam Eye Exam: EOMI, PERRL - ENT Exam ENT Exam: Normal Oropharynx - Neck Exam Neck exam: Positive for: Full Rom - Respiratory Exam Respiratory Exam: Clear to Auscultation Bilateral, NORMAL BREATHING PATTERN - Cardiovascular Exam Cardiovascular Exam: RRR, +S1, +S2 - GI/Abdominal Exam GI & Abdominal Exam: Normal Bowel Sounds, Soft Additional comments: NT, ND - Extremities Exam Extremities exam: Positive for: normal inspection - Back Exam Additional comments: b/l nephrostomy tubes present/ no erythema , no discharge stage 1 sacral decub , no malodor - Neurological Exam Neurological exam: Alert, Oriented x3 Assessment and Plan (1) Complicated UTI (urinary tract infection) Status: Acute (2) Urinary tract infection associated with nephrostomy catheter Status: Acute (3) Bladder cancer Status: Chronic (4) Leukopenia Status: Acute (5) Back pain Status: Acute - Assessment and Plan (Free Text) Assessment: A/P- 78 year old male with 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 afebrile Leukopenia but not neutropenic + UA Urine cx- serratia marsecens sens to meropenem blood cx- neg x 2 plan- continue with IV meropnem day #2 for UTI, serratia is sens to it. can d/c vanco. All above d/w patient and he verbalizes full understanding of all above.
[2018-04-19] MEDS: Sodium Chloride 0.9% 1,000 ML IV SCH ×2 (11:45→21:01)
[2018-04-19] MEDS: Docusate-Senna 50 mg-8.6 mg Tab PO SCH (22:04)
[2018-04-19] MEDS: oxyCODONE 10 mg Immediate Release Tab PO PRN (23:02)
--- NOTE | 2018-04-19 23:40 | CP.PCM.PN ---
Subjective - Date & Time of Evaluation Date of Evaluation: 04/19/18 Time of Evaluation: 19:00 - Subjective Subjective: Has back pain but feeling better after PRBC transfusion. Objective - Vital Signs/Intake and Output Vital Signs (last 24 hours): Temp Pulse Resp BP Pulse Ox 98.7 F 72 20 133/71 99 04/19/18 17:45 04/19/18 17:45 04/19/18 17:45 04/19/18 17:45 04/19/18 16:19 Intake and Output: 04/19/18 04/20/18 18:59 06:59 Intake Total 750 Output Total 500 150 Balance 250 -150 - Medications Medications: Current Medications Docusate Sodium (Colace) 100 mg PO DAILY [facility] Last Admin: 04/19/18 18:18 Dose: 100 mg Meropenem 500 mg/ Sodium (Chloride) 100 mls @ 100 mls/hr IVPB Q12 [facility]KE PRN Reason: Protocol Last Admin: 04/19/18 20:53 Dose: 100 mls/hr Vancomycin HCl 500 mg/ Sodium (Chloride) 100 mls @ 100 mls/hr IVPB Q12 MIKE PRN Reason: Protocol Last Admin: 04/19/18 22:01 Dose: 100 mls/hr Sodium Chloride (Sodium Chloride 0.9%) 1,000 mls @ 100 mls/hr IV .Q10H [facility] Stop: 04/20/18 11:54 Last Admin: 04/19/18 21:01 Dose: 100 mls/hr Morphine Sulfate (Morphine) 2 mg IVP Q4 PRN PRN Reason: Pain, severe (8-10) Last Admin: 04/19/18 20:54 Dose: 2 mg Oxycodone HCl (Oxycontin Extended Release Tab) 10 mg PO Q12 [facility] Stop: 04/21/18 09:01 Last Admin: 04/19/18 21:00 Dose: Not Given Oxycodone HCl (Oxycodone Immediate Release Tab) 10 mg PO Q6 PRN PRN Reason: Pain, moderate (4-7) Last Admin: 04/19/18 23:02 Dose: 10 mg Pantoprazole Sodium (Protonix Ec Tab) 40 mg PO DAILY [facility] Senna/Docusate Sodium (Senokot S 50 Mg-8.6 Mg) 1 tab PO [facility] Last Admin: 04/19/18 22:04 Dose: 1 tab Tamsulosin HCl (Flomax) 0.4 mg PO HS [facility] Last Admin: 04/19/18 21:00 Dose: 0.4 mg - Labs Labs: 04/19/18 05:15 04/18/18 05:35 PT 22.1 Seconds (9.8-13.1) H 04/17/18 14:00 INR 2.0 04/17/18 14:00 APTT 51.9 Seconds (25.6-37.1) H 04/17/18 14:00 - Head Exam Head Exam: ATRAUMATIC - Eye Exam Eye Exam: Normal appearance - ENT Exam ENT Exam: Mucous Membranes Dry - Respiratory Exam Respiratory Exam: NORMAL BREATHING PATTERN - Cardiovascular Exam Cardiovascular Exam: +S1, +S2 - GI/Abdominal Exam GI & Abdominal Exam: Normal Bowel Sounds Assessment and Plan (1) Pancytopenia Assessment & Plan: secondary to chemotherapy s/p PRBC transfusion repeat CBC in AM Status: Acute (2) Bladder cancer Assessment & Plan: stage IV outpatient treatment Status: Chronic
[2018-04-20] MEDS: oxyCODONE 10 mg Immediate Release Tab PO PRN ×2 (05:39→19:29)
[2018-04-20 06:32] LABS: BASO % 1.5 % (0.0-2.0); EOS % 2.3 % (0.0-4.0); HEMOGLOBIN 8.3 g/dL (12.0-18.0); LYMPH # 0.7 K/uL (1.0-4.3); MEAN CELL VOLUME 87.1 fl (80.0-94.0); MEAN CORPUSCULAR HEMOGLOBIN 29.9 pg (27.0-31.0); MEAN CORPUSCULAR HGB CONC 34.3 g/dL (33.0-37.0); MEAN PLATELET VOLUME 6.2 fl (7.2-11.7); MONO # 0.2 K/uL (0.0-0.8); MONO % 10.9 % (0.0-10.0); NEUT % 49.3 % (50.0-75.0); NRBC % 0.2 % (0.0-0.0); RBC 2.77 Mil/uL (4.40-5.90); RED CELL DISTRIBUTION WIDTH 19.7 % (11.5-14.5); WHITE BLOOD COUNT 2.1 K/uL (4.8-10.8)
[2018-04-20 07:17] LABS: ALBUMIN 3.1 g/dL (3.5-5.0); ALT/SGPT 28 U/L (21-72); AST/SGOT 32 U/L (17-59); BLOOD UREA NITROGEN 17 mg/dl (9-20); CALCIUM 8.4 mg/dL (8.4-10.2); GFR AFRICAN-AMERICAN > 60; GFR NON-AFRICAN AMERICAN > 60
[2018-04-20] MEDS: oxyCODONE 10 mg ER Tab (oxyCONTIN) PO SCH ×2 (10:01→21:44)
[2018-04-20] MEDS: Pantoprazole 40 mg EC Tab PO SCH (10:02)
[2018-04-20] MEDS: Meropenem 500 MG in Sodium Chloride 0.9% 100 ML IVPB SCH ×2 (10:02→20:22)
[2018-04-20] MEDS: Sodium Chloride 0.9% 1,000 ML IV SCH (10:11)
--- NOTE | 2018-04-20 11:22 | CP.PCM.PN ---
Subjective - Date & Time of Evaluation Date of Evaluation: 04/20/18 Time of Evaluation: 11:22 - Subjective Subjective: ID note- Pt. seen and examined today. Pt. smiling today and in better spirits but states he still has alot of pain in his back from the bony mets. denies any fever or chills. denies any nausea. Objective - Vital Signs/Intake and Output Vital Signs (last 24 hours): Temp Pulse Resp BP Pulse Ox 97.9 F 79 20 125/56 L 99 04/20/18 08:50 04/20/18 08:50 04/20/18 08:50 04/20/18 08:50 04/20/18 08:50 Intake and Output: 04/20/18 04/20/18 06:59 18:59 Output Total 150 700 Balance -150 -700 - Medications Medications: Current Medications Docusate Sodium (Colace) 100 mg PO DAILY [facility] Last Admin: 04/20/18 10:02 Dose: 100 mg Meropenem 500 mg/ Sodium (Chloride) 100 mls @ 100 mls/hr IVPB Q12 [facility] PRN Reason: Protocol Last Admin: 04/20/18 10:02 Dose: 100 mls/hr Sodium Chloride (Sodium Chloride 0.9%) 1,000 mls @ 100 mls/hr IV .Q10H [facility] Stop: 04/20/18 11:54 Last Admin: 04/20/18 10:11 Dose: 100 mls/hr Morphine Sulfate (Morphine) 2 mg IVP Q4 PRN PRN Reason: Pain, severe (8-10) Last Admin: 04/20/18 03:27 Dose: 2 mg Oxycodone HCl (Oxycontin Extended Release Tab) 10 mg PO Q12 [facility] Stop: 04/21/18 09:01 Last Admin: 04/20/18 10:01 Dose: 10 mg Oxycodone HCl (Oxycodone Immediate Release Tab) 10 mg PO Q6 PRN PRN Reason: Pain, moderate (4-7) Last Admin: 04/20/18 05:39 Dose: 10 mg Pantoprazole Sodium (Protonix Ec Tab) 40 mg PO DAILY [facility] Last Admin: 04/20/18 10:02 Dose: 40 mg Senna/Docusate Sodium (Senokot S 50 Mg-8.6 Mg) 1 tab PO HS [facility] Last Admin: 04/19/18 22:04 Dose: 1 tab Tamsulosin HCl (Flomax) 0.4 mg PO [facility] Last Admin: 04/19/18 21:00 Dose: 0.4 mg - Labs Labs: - Additional Findings Additional findings: - Constitutional Appears: Chronically Ill - Head Exam Head Exam: ATRAUMATIC - Eye Exam Eye Exam: EOMI, PERRL - ENT Exam ENT Exam: Normal Oropharynx - Neck Exam Neck exam: Positive for: Full Rom - Respiratory Exam Respiratory Exam: Clear to Auscultation Bilateral, NORMAL BREATHING PATTERN - Cardiovascular Exam Cardiovascular Exam: RRR, +S1, +S2 - GI/Abdominal Exam GI & Abdominal Exam: Normal Bowel Sounds, Soft Additional comments: NT, ND - Extremities Exam Extremities exam: Positive for: normal inspection - Back Exam Additional comments: b/l nephrostomy tubes present/ no erythema , no discharge stage 1 sacral decub , no malodor - Neurological Exam Neurological exam: Alert, Oriented x 3 Laboratory Results - last 72 hr 04/17/18 04/18/18 04/18/18 22:00 05:35 05:35 WBC 1.4 L* RBC 2.36 L Hgb 7.2 L Hct 21.2 L MCV 89.8 MCH 30.4 MCHC 33.8 RDW 18.7 H Plt Count 53 L D MPV 6.0 L Neut % (Auto) 60.8 Lymph % (Auto) 33.5 [place] % (Auto) 2.6 Eos % (Auto) 1.3 Baso % (Auto) 1.8 Neut # (Auto) 0.8 L Lymph # (Auto) 0.5 L [place] # (Auto) 0.0 Eos # (Auto) 0.0 Baso # (Auto) 0.0 Sodium 137 Potassium 4.2 Chloride 104 Carbon Dioxide 25 Anion Gap 12 BUN 27 H Creatinine 1.2 Est GFR ( Amer) > 60 Est GFR (Non-Af Amer) 58 POC Glucose (mg/dL) 106 Random Glucose 101 Calcium 8.4 Phosphorus 3.1 Magnesium 1.9 Total Bilirubin 1.0 AST 62 H D ALT 27 Alkaline Phosphatase 1189 H Total Protein 6.1 L Albumin 3.1 L Globulin 3.0 Albumin/Globulin Ratio 1.0 Blood Type Antibody Screen Crossmatch BBK History Checked 04/18/18 04/18/18 04/18/18 05:47 11:24 15:42 WBC RBC Hgb Hct MCV MCH MCHC RDW Plt Count MPV Neut % (Auto) Lymph % (Auto) [place] % (Auto) Eos % (Auto) Baso % (Auto) Neut # (Auto) Lymph # (Auto) [place] # (Auto) Eos # (Auto) Baso # (Auto) Sodium Potassium Chloride Carbon Dioxide Anion Gap BUN Creatinine Est GFR ( Amer) Est GFR (Non-Af Amer) POC Glucose (mg/dL) 101 149 H 118 H Random Glucose Calcium Phosphorus Magnesium Total Bilirubin AST ALT Alkaline Phosphatase Total Protein Albumin Globulin Albumin/Globulin Ratio Blood Type Antibody Screen Crossmatch BBK History Checked 04/18/18 04/19/18 04/19/18 22:10 05:15 05:41 WBC 1.6 L* RBC 2.14 L Hgb 6.6 L Hct 19.2 L MCV 89.7 MCH 30.6 MCHC 34.1 RDW 18.8 H Plt Count 39 L MPV 6.2 L Neut % (Auto) 47.5 L Lymph % (Auto) 42.7 H [place] % (Auto) 6.1 Eos % (Auto) 1.9 Baso % (Auto) 1.8 Neut # (Auto) 0.8 L Lymph # (Auto) 0.7 L [place] # (Auto) 0.1 Eos # (Auto) 0.0 Baso # (Auto) 0.0 Sodium Potassium Chloride Carbon Dioxide Anion Gap BUN Creatinine Est GFR ( Amer) Est GFR (Non-Af Amer) POC Glucose (mg/dL) 135 H 126 H Random Glucose Calcium Phosphorus Magnesium Total Bilirubin AST ALT Alkaline Phosphatase Total Protein Albumin Globulin Albumin/Globulin Ratio Blood Type Antibody Screen Crossmatch BBK History Checked 04/19/18 04/19/18 04/19/18 05:55 10:44 15:47 WBC RBC Hgb Hct MCV MCH MCHC RDW Plt Count MPV Neut % (Auto) Lymph % (Auto) [place] % (Auto) Eos % (Auto) Baso % (Auto) Neut # (Auto) Lymph # (Auto) [place] # (Auto) Eos # (Auto) Baso # (Auto) Sodium Potassium Chloride Carbon Dioxide Anion Gap BUN Creatinine Est GFR ( Amer) Est GFR (Non-Af Amer) POC Glucose (mg/dL) 134 H 141 H Random Glucose Calcium Phosphorus Magnesium Total Bilirubin AST ALT Alkaline Phosphatase Total Protein Albumin Globulin Albumin/Globulin Ratio Blood Type B POSITIVE Antibody Screen Negative Crossmatch See Detail BBK History Checked Patient has bt 04/19/18 04/20/18 04/20/18 22:38 05:20 05:20 WBC 2.1 L RBC 2.77 L Hgb 8.3 L Hct 24.1 L MCV 87.1 D MCH 29.9 MCHC 34.3 RDW 19.7 H Plt Count 31 L MPV 6.2 L Neut % (Auto) 49.3 L Lymph % (Auto) 36.0 [place] % (Auto) 10.9 H Eos % (Auto) 2.3 Baso % (Auto) 1.5 Neut # (Auto) 1.0 L Lymph # (Auto) 0.7 L [place] # (Auto) 0.2 Eos # (Auto) 0.0 Baso # (Auto) 0.0 Sodium 139 Potassium 4.1 Chloride 108 H Carbon Dioxide 21 L Anion Gap 14 BUN 17 Creatinine 0.9 Est GFR ( Amer) > 60 Est GFR (Non-Af Amer) > 60 POC Glucose (mg/dL) 129 H Random Glucose 98 Calcium 8.4 Phosphorus Magnesium Total Bilirubin 0.6 AST 32 ALT 28 Alkaline Phosphatase 1045 H Total Protein 6.1 L Albumin 3.1 L Globulin 3.0 Albumin/Globulin Ratio 1.0 Blood Type Antibody Screen Crossmatch BBK History Checked 04/20/18 04/20/18 04/20/18 05:28 10:50 16:03 WBC RBC Hgb Hct MCV MCH MCHC RDW Plt Count MPV Neut % (Auto) Lymph % (Auto) [place] % (Auto) Eos % (Auto) Baso % (Auto) Neut # (Auto) Lymph # (Auto) [place] # (Auto) Eos # (Auto) Baso # (Auto) Sodium Potassium Chloride Carbon Dioxide Anion Gap BUN Creatinine Est GFR ( Amer) Est GFR (Non-Af Amer) POC Glucose (mg/dL) 100 139 H 158 H Random Glucose Calcium Phosphorus Magnesium Total Bilirubin AST ALT Alkaline Phosphatase Total Protein Albumin Globulin Albumin/Globulin Ratio Blood Type Antibody Screen Crossmatch BBK History Checked Microbiology 04/18/18 19:20 Blood-Venous Blood Culture - Preliminary NO GROWTH AFTER 24 HOURS 04/18/18 19:10 Blood-Venous Blood Culture - Preliminary NO GROWTH AFTER 24 HOURS 04/19/18 07:27 Sputum Gram Stain - Preliminary 04/17/18 12:00 Urine,Veliz Urine Culture - Final Serratia Marcescens Assessment and Plan (1) Complicated UTI (urinary tract infection) Status: Acute (2) Urinary tract infection associated with nephrostomy catheter Status: Acute (3) Bladder cancer Status: Chronic (4) Leukopenia Status: Acute (5) Back pain Status: Acute - Assessment and Plan (Free Text) Assessment: A/P- 78 year old male with 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 afebrile Leukopenia improved. + UA Urine cx- serratia marsecens sens to meropenem blood cx- neg x 2 plan- continue with IV meropnem day #3 for UTI, serratia is sens to it. advise total of 10 days of IV abx for the UTI. hence 7 more days. oncologist to decide whether pt. needs radiation for bony mets . All above d/w patient and with Dr.Semana fabio alejo.
--- NOTE | 2018-04-20 11:57 | CP.PCM.PCO ---
Physician Communication Note - Physician Communication Note Physician Communication Note: Pt requires 7-10 days of IV antibiotics per Dr. Herbert recommendation
[2018-04-20] MEDS: Docusate-Senna 50 mg-8.6 mg Tab PO SCH (21:44)
--- NOTE | 2018-04-21 00:21 | CP.PCM.PN ---
Subjective - Date & Time of Evaluation Date of Evaluation: 04/19/18 Time of Evaluation: 20:35 Objective - Vital Signs/Intake and Output Vital Signs (last 24 hours): Temp Pulse Resp BP Pulse Ox 97.9 F 75 20 117/53 L 98 04/21/18 00:19 04/21/18 00:19 04/21/18 00:19 04/21/18 00:19 04/21/18 00:19 Intake and Output: 04/20/18 04/21/18 18:59 06:59 Output Total 1100 820 Balance -1100 -820 - Medications Medications: Current Medications Docusate Sodium (Colace) 100 mg PO DAILY [facility] Last Admin: 04/20/18 10:02 Dose: 100 mg Meropenem 500 mg/ Sodium (Chloride) 100 mls @ 100 mls/hr IVPB Q12 [facility] PRN Reason: Protocol Last Admin: 04/20/18 20:22 Dose: 100 mls/hr Morphine Sulfate (Morphine) 2 mg IVP Q4 PRN PRN Reason: Pain, severe (8-10) Last Admin: 04/20/18 17:53 Dose: 2 mg Oxycodone HCl (Oxycontin Extended Release Tab) 10 mg PO Q12 [facility] Stop: 04/21/18 09:01 Last Admin: 04/20/18 21:44 Dose: 10 mg Oxycodone HCl (Oxycodone Immediate Release Tab) 10 mg PO Q6 PRN PRN Reason: Pain, moderate (4-7) Last Admin: 04/20/18 19:29 Dose: 10 mg Pantoprazole Sodium (Protonix Ec Tab) 40 mg PO DAILY [facility] Last Admin: 04/20/18 10:02 Dose: 40 mg Senna/Docusate Sodium (Senokot S 50 Mg-8.6 Mg) 1 tab PO HS [facility] Last Admin: 04/20/18 21:44 Dose: 1 tab Tamsulosin HCl (Flomax) 0.4 mg PO [facility] Last Admin: 04/20/18 21:44 Dose: 0.4 mg - Labs Labs: 04/20/18 05:20 04/20/18 05:20 PT 22.1 Seconds (9.8-13.1) H 04/17/18 14:00 INR 2.0 04/17/18 14:00 APTT 51.9 Seconds (25.6-37.1) H 04/17/18 14:00 Assessment and Plan (1) Urinary tract infection associated with nephrostomy catheter Status: Acute (2) Pancytopenia Status: Acute (3) Bladder cancer Status: Chronic
--- NOTE | 2018-04-21 00:22 | CP.PCM.PN ---
Subjective - Date & Time of Evaluation Date of Evaluation: 04/20/18 Time of Evaluation: 21:45 Objective - Vital Signs/Intake and Output Vital Signs (last 24 hours): Temp Pulse Resp BP Pulse Ox 97.9 F 75 20 117/53 L 98 04/21/18 00:19 04/21/18 00:19 04/21/18 00:19 04/21/18 00:19 04/21/18 00:19 Intake and Output: 04/20/18 04/21/18 18:59 06:59 Output Total 1100 820 Balance -1100 -820 - Medications Medications: Current Medications Docusate Sodium (Colace) 100 mg PO DAILY [facility] Last Admin: 04/20/18 10:02 Dose: 100 mg Meropenem 500 mg/ Sodium (Chloride) 100 mls @ 100 mls/hr IVPB Q12 [facility] PRN Reason: Protocol Last Admin: 04/20/18 20:22 Dose: 100 mls/hr Morphine Sulfate (Morphine) 2 mg IVP Q4 PRN PRN Reason: Pain, severe (8-10) Last Admin: 04/20/18 17:53 Dose: 2 mg Oxycodone HCl (Oxycontin Extended Release Tab) 10 mg PO Q12 [facility] Stop: 04/21/18 09:01 Last Admin: 04/20/18 21:44 Dose: 10 mg Oxycodone HCl (Oxycodone Immediate Release Tab) 10 mg PO Q6 PRN PRN Reason: Pain, moderate (4-7) Last Admin: 04/20/18 19:29 Dose: 10 mg Pantoprazole Sodium (Protonix Ec Tab) 40 mg PO DAILY [facility] Last Admin: 04/20/18 10:02 Dose: 40 mg Senna/Docusate Sodium (Senokot S 50 Mg-8.6 Mg) 1 tab PO HS [facility] Last Admin: 04/20/18 21:44 Dose: 1 tab Tamsulosin HCl (Flomax) 0.4 mg PO [facility] Last Admin: 04/20/18 21:44 Dose: 0.4 mg - Labs Labs: 04/20/18 05:20 04/20/18 05:20 PT 22.1 Seconds (9.8-13.1) H 04/17/18 14:00 INR 2.0 04/17/18 14:00 APTT 51.9 Seconds (25.6-37.1) H 04/17/18 14:00 Assessment and Plan (1) Urinary tract infection associated with nephrostomy catheter Status: Acute (2) Pancytopenia Status: Acute (3) Bladder cancer Status: Chronic
[2018-04-21] MEDS: oxyCODONE 10 mg Immediate Release Tab PO PRN (02:39)
[2018-04-21 05:21] VITALS: RESP 20
[2018-04-21 06:27] LABS: HEMOGLOBIN 10.8 g/dL (12.0-18.0); MEAN CELL VOLUME 88.9 fl (80.0-94.0); MEAN CORPUSCULAR HEMOGLOBIN 30.4 pg (27.0-31.0); MEAN CORPUSCULAR HGB CONC 34.1 g/dL (33.0-37.0); RBC 3.57 Mil/uL (4.40-5.90); RED CELL DISTRIBUTION WIDTH 18.9 % (11.5-14.5); WHITE BLOOD COUNT 3.3 K/uL (4.8-10.8)
[2018-04-21 08:05] VITALS: BP 136/58; PULSE 67; TEMP 98; O2SAT 99
[2018-04-21] MEDS: Pantoprazole 40 mg EC Tab PO SCH (08:43)
[2018-04-21] MEDS: oxyCODONE 10 mg ER Tab (oxyCONTIN) PO SCH (08:44)
[2018-04-21] MEDS: Meropenem 500 MG in Sodium Chloride 0.9% 100 ML IVPB SCH (08:44)
[2018-04-21] MEDS ORDERED: Fluconazole IV 100mg/50 ml NS 50 ML IVPB SCH (12:15)
[2018-04-21] MEDS ORDERED: Meropenem 500 MG in Sodium Chloride 0.9% 100 ML IVPB SCH (21:00)
--- NOTE | 2018-04-21 21:42 | CP.PCM.PN ---
Subjective - Date & Time of Evaluation Date of Evaluation: 04/20/18 Time of Evaluation: 14:00 - Subjective Subjective: Has some back pain, feeling better after transfusion Objective - Vital Signs/Intake and Output Vital Signs (last 24 hours): Temp Pulse Resp BP Pulse Ox 98 F 67 20 136/58 L 99 04/21/18 08:05 04/21/18 08:05 04/21/18 08:05 04/21/18 08:05 04/21/18 08:05 Intake and Output: 04/21/18 04/22/18 18:59 06:59 Intake Total 525 Output Total 250 Balance 275 - Labs Labs: 04/21/18 05:20 04/20/18 05:20 PT 22.1 Seconds (9.8-13.1) H 04/17/18 14:00 INR 2.0 04/17/18 14:00 APTT 51.9 Seconds (25.6-37.1) H 04/17/18 14:00 - Head Exam Head Exam: ATRAUMATIC - Eye Exam Eye Exam: Normal appearance - ENT Exam ENT Exam: Mucous Membranes Dry - Respiratory Exam Respiratory Exam: NORMAL BREATHING PATTERN - Cardiovascular Exam Cardiovascular Exam: +S1, +S2 - GI/Abdominal Exam GI & Abdominal Exam: Normal Bowel Sounds Assessment and Plan (1) Pancytopenia Assessment & Plan: secondary to chemotherapy transfusion support Status: Acute (2) Bladder cancer Assessment & Plan: stage IV bone metastasis outpatient treatment Status: Chronic
== END 2018-04-21 13:53 | DRG 698 ==
LOC: H.ER 11:45 → H.ERHOLD 18:05 → INTOOBSV 18:05 → H.MEDSURG1 04-18 00:12 → OBSVTOIN 04-19 08:47
PROVIDERS: ADMIT Internal Medicine; ATTEND Internal Medicine
PROC: 30233N1 Transfusion of Nonautologous Red Blood Cells into Peripheral Vein, Percutaneous Approach (ICD-10-PCS; principal; 2018-04-19)
DX: T83.512A Infection and inflammatory reaction due to nephrostomy catheter, initial encounter (principal); D61.810 Antineoplastic chemotherapy induced pancytopenia; C77.9 Secondary and unspecified malignant neoplasm of lymph node, unspecified; C79.51 Secondary malignant neoplasm of bone; D61.818 Other pancytopenia; N39.0 Urinary tract infection, site not specified; C67.9 Malignant neoplasm of bladder, unspecified; L89.151 Pressure ulcer of sacral region, stage 1; N40.0 Benign prostatic hyperplasia without lower urinary tract symptoms; T45.1X5A Adverse effect of antineoplastic and immunosuppressive drugs, initial encounter; F32.9 Major depressive disorder, single episode, unspecified; E11.9 Type 2 diabetes mellitus without complications; Z87.891 Personal history of nicotine dependence; Y73.2 Prosthetic and other implants, materials and accessory gastroenterology and urology devices associated with adverse incidents; M43.16 Spondylolisthesis, lumbar region; B96.89 Other specified bacterial agents as the cause of diseases classified elsewhere; G89.3 Neoplasm related pain (acute) (chronic); Z88.6 Allergy status to analgesic agent

== ENCOUNTER 2018-04-21 13:11 | Inpatient (IN) | payer MEDICARE ==
[2018-04-21 14:01] VITALS: BMI 22.5
[2018-04-21] MEDS ORDERED: oxyCODONE 10 mg Immediate Release Tab PO PRN (15:16)
[2018-04-21] MEDS ORDERED: NS 100 MG IVPB SCH (15:30)
[2018-04-21] MEDS ORDERED: Fluconazole IV 100mg/50 ml NS 50 ML IVPB SCH (15:30)
[2018-04-21] MEDS ORDERED: FLUCONAZOLE 100 MG/50 ML IVPB SCH (15:30)
[2018-04-21] MEDS: oxyCODONE 10 mg Immediate Release Tab PO PRN (15:39)
[2018-04-21] MEDS: oxyCODONE 20 mg ER Tab (oxyCONTIN) PO SCH (20:45)
[2018-04-21] MEDS: Meropenem 500 MG in Sodium Chloride 0.9% 100 ML IVPB SCH (20:45)
[2018-04-21 20:52] VITALS: RESP 20
[2018-04-21] MEDS ORDERED: Patient's Own Med (Meropenem 500 Mg In Ns [Merrem Iv 500 Mg/Ns 50 Ml] 500 MG) IV SCH (21:00)
[2018-04-21] MEDS: Docusate-Senna 50 mg-8.6 mg Tab PO SCH (21:51)
--- NOTE | 2018-04-21 22:06 | CP.PCM.CON ---
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 He is on antibiotics and is s/p PRBC transfusion. He has been receiving chemotherapy with carboplatin and gemcitabine. He notes to recent nephrostomy tube exchange but continued back pain. He continues to have a poor appetite. He denies N/V/D. Past medical history: DM, urothelial cancer Past surgical history: Hernia repair Family history: Denies hematologic and oncologic problems Social history: Former tobacco, denies alcohol, and illicit drug use. Allergies: Aspirin Review of systems: All remaining review of systems including HEENT, cardiovascular, respiratory, gastrointestinal, genitourinary, musculoskeletal, dermatologic, neurologic, and psychiatric are negative unless mentioned in the HPI. Past Patient History - Infectious Disease Hx of Infectious Diseases: None - Past Medical History & Family History Past Medical History?: Yes - Past Social History Smoking Status: Former Smoker - CARDIAC Hx Cardiac Disorders: Yes - PULMONARY Hx Respiratory Disorders: No - NEUROLOGICAL Hx Neurological Disorder: No - HEENT Hx HEENT Problems: No - RENAL Hx Chronic Kidney Disease: No - ENDOCRINE/METABOLIC Hx Diabetes Mellitus Type 2: Yes - HEMATOLOGICAL/ONCOLOGICAL Hx Anemia: Yes Hx Cancer: Yes Hx Chemotherapy: Yes - INTEGUMENTARY Hx Dermatological Problems: No - MUSCULOSKELETAL/RHEUMATOLOGICAL Hx Falls: No - GASTROINTESTINAL Hx Gastrointestinal Disorders: No Other/Comment: TURBT - GENITOURINARY/GYNECOLOGICAL Hx Genitourinary Disorders: Yes 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) Other/Comment: B/L Nephrostomy tubes; HX OBSTRUCTIVE UROPATHY - PSYCHIATRIC Hx Psychophysiologic Disorder: Yes Hx Depression: Yes Hx Substance Use: No - SURGICAL HISTORY Hx Surgeries: Yes Hx Herniorrhaphy: Yes (> 20 YRS AGO) Other/Comment: Hx TURBT with 07/2017. Hx cystoscopy - Transurethral resection of bladder tumor 12/06/17. Hx Bilateral Nephrostomy tube excharge 03/30. Right portacath - ANESTHESIA Hx Anesthesia: Yes Hx Anesthesia Reactions: No Hx Malignant Hyperthermia: No Has any member of the family had a problem w/ anesthesia?: No Meds Allergies/Adverse Reactions: Allergies Allergy/AdvReac Type Severity Reaction Status Date / Time aspirin Allergy DIZZINESS Verified 04/21/18 14:01 - Medications Medications: Current Medications Docusate Sodium (Colace) 100 mg PO DAILY [facility] Fluconazole (Diflucan Iv 100 Mg/50 Ml Ns) 50 mls @ 50 mls/hr IVPB DAILY [facility] Last Admin: 04/21/18 18:11 Dose: 50 mls/hr Meropenem 500 mg/ Sodium (Chloride) 100 mls @ 100 mls/hr IVPB Q12 [facility] PRN Reason: Protocol Last Admin: 04/21/18 20:45 Dose: 100 mls/hr Oxycodone HCl (Oxycontin Extended Release Tab) 20 mg PO Q12 [facility] Last Admin: 04/21/18 20:45 Dose: 20 mg Oxycodone HCl (Oxycodone Immediate Release Tab) 10 mg PO Q6 PRN PRN Reason: Pain, moderate (4-7) Last Admin: 04/21/18 15:39 Dose: 10 mg Pantoprazole Sodium (Protonix Ec Tab) 40 mg PO DAILY [facility] Senna/Docusate Sodium (Senokot S 50 Mg-8.6 Mg) 1 tab PO HS [facility] Last Admin: 04/21/18 21:51 Dose: 1 tab Tamsulosin HCl (Flomax) 0.4 mg PO [facility] Last Admin: 04/21/18 21:51 Dose: 0.4 mg Physical Exam - Head Exam Head Exam: ATRAUMATIC - Eye Exam Eye Exam: Normal appearance - ENT Exam ENT Exam: Mucous Membranes Dry - Respiratory Exam Respiratory Exam: NORMAL BREATHING PATTERN - Cardiovascular Exam Cardiovascular Exam: +S1, +S2 - GI/Abdominal Exam GI & Abdominal Exam: Normal Bowel Sounds - Neurological Exam Neurological exam: Oriented x3 - Psychiatric Exam Psychiatric exam: Normal Affect, Normal Mood - Skin Skin Exam: Warm Results - Vital Signs Recent Vital Signs: Last Vital Signs Temp 98.2 F 04/21/18 20:51 Pulse 72 04/21/18 20:51 Resp 20 04/21/18 20:51 BP 128/58 L 04/21/18 20:51 Pulse Ox 100 04/21/18 20:51 - Labs Labs: Laboratory Results - last 24 hr 04/21/18 04/21/18 16:16 20:50 POC Glucose (mg/dL) 123 H 146 H Assessment & Plan (1) Pancytopenia Assessment and Plan: improved s/p PRBC transfusion secondary to chemotherapy Status: Acute Priority: High (2) Bladder cancer Assessment and Plan: stage IV lymph node, bone metastasis on outpatient chemotherapy Thank you for this interesting consult. Status: Chronic Priority: High
[2018-04-22] MEDS: oxyCODONE 10 mg Immediate Release Tab PO PRN ×2 (03:00→22:11)
[2018-04-22] MEDS: Meropenem 500 MG in Sodium Chloride 0.9% 100 ML IVPB SCH ×2 (08:00→22:02)
[2018-04-22] MEDS: Pantoprazole 40 mg EC Tab PO SCH (08:01)
[2018-04-22] MEDS: oxyCODONE 20 mg ER Tab (oxyCONTIN) PO SCH ×2 (08:02→20:39)
--- NOTE | 2018-04-22 08:11 | CP.PCM.HP ---
Past Patient History - Infectious Disease Hx of Infectious Diseases: None - Past Medical History & Family History Past Medical History?: Yes - Past Social History Smoking Status: Former Smoker - CARDIAC Hx Cardiac Disorders: Yes - PULMONARY Hx Respiratory Disorders: No - NEUROLOGICAL Hx Neurological Disorder: No - HEENT Hx HEENT Problems: No - RENAL Hx Chronic Kidney Disease: No - ENDOCRINE/METABOLIC Hx Diabetes Mellitus Type 2: Yes - HEMATOLOGICAL/ONCOLOGICAL Hx Anemia: Yes Hx Cancer: Yes Hx Chemotherapy: Yes - INTEGUMENTARY Hx Dermatological Problems: No - MUSCULOSKELETAL/RHEUMATOLOGICAL Hx Falls: No - GASTROINTESTINAL Hx Gastrointestinal Disorders: No Other/Comment: TURBT - GENITOURINARY/GYNECOLOGICAL Hx Genitourinary Disorders: Yes 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) Other/Comment: B/L Nephrostomy tubes; HX OBSTRUCTIVE UROPATHY - PSYCHIATRIC Hx Psychophysiologic Disorder: Yes Hx Depression: Yes Hx Substance Use: No - SURGICAL HISTORY Hx Surgeries: Yes Hx Herniorrhaphy: Yes (> 20 YRS AGO) Other/Comment: Hx TURBT with 07/2017. Hx cystoscopy - Transurethral resection of bladder tumor 12/06/17. Hx Bilateral Nephrostomy tube excharge 03/30. Right portacath - ANESTHESIA Hx Anesthesia: Yes Hx Anesthesia Reactions: No Hx Malignant Hyperthermia: No Has any member of the family had a problem w/ anesthesia?: No Meds Allergies/Adverse Reactions: Allergies Allergy/AdvReac Type Severity Reaction Status Date / Time aspirin Allergy DIZZINESS Verified 04/21/18 14:01 Results - Vital Signs Recent Vital Signs: Last Vital Signs Temp 98.2 F 04/21/18 20:51 Pulse 72 04/21/18 20:51 Resp 20 04/21/18 20:51 BP 128/58 L 04/21/18 20:51 Pulse Ox 100 04/21/18 20:51 - Labs Labs: Laboratory Results - last 24 hr 04/21/18 04/21/18 16:16 20:50 POC Glucose (mg/dL) 123 H 146 H
--- NOTE | 2018-04-22 08:50 | CP.PCM.CON ---
History of Present Illness - History of Present Illness History of Present Illness: Infectious Disease Note- HPI- 78 year old male with stage 4 bladder CA with bone mets , b/l nephrostomy tube sadmitted with back pain. found to have serratia marsesens UTI being treated with IV meropenbem. feeling better. transferred to TCU for completion of antibiotics and PT. Review of Systems - Review of Systems Review of Systems: ROS- denies any fever or chills, denies any Gardner, denies any abd. pain, back pain sec to bone mets but less now, denies any sob or cough, denies any chest pain. denies any cough Past Patient History - Infectious Disease Hx of Infectious Diseases: None - Past Medical History & Family History Past Medical History?: Yes - Past Social History Smoking Status: Former Smoker Home Situation {Lives}: With Family - CARDIAC Hx Cardiac Disorders: Yes - PULMONARY Hx Respiratory Disorders: No - NEUROLOGICAL Hx Neurological Disorder: No - HEENT Hx HEENT Problems: No - RENAL Hx Chronic Kidney Disease: No - ENDOCRINE/METABOLIC Hx Diabetes Mellitus Type 2: Yes - HEMATOLOGICAL/ONCOLOGICAL Hx Anemia: Yes Hx Cancer: Yes Hx Chemotherapy: Yes - INTEGUMENTARY Hx Dermatological Problems: No - MUSCULOSKELETAL/RHEUMATOLOGICAL Hx Falls: No - GASTROINTESTINAL Hx Gastrointestinal Disorders: No Other/Comment: TURBT - GENITOURINARY/GYNECOLOGICAL Hx Genitourinary Disorders: Yes 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) Other/Comment: B/L Nephrostomy tubes; HX OBSTRUCTIVE UROPATHY - PSYCHIATRIC Hx Psychophysiologic Disorder: Yes Hx Depression: Yes Hx Substance Use: No - SURGICAL HISTORY Hx Surgeries: Yes Hx Herniorrhaphy: Yes (> 20 YRS AGO) Other/Comment: Hx TURBT with 07/2017. Hx cystoscopy - Transurethral resection of bladder tumor 12/06/17. Hx Bilateral Nephrostomy tube excharge 03/30. Right portacath - ANESTHESIA Hx Anesthesia: Yes Hx Anesthesia Reactions: No Hx Malignant Hyperthermia: No Has any member of the family had a problem w/ anesthesia?: No Meds Allergies/Adverse Reactions: Allergies Allergy/AdvReac Type Severity Reaction Status Date / Time aspirin Allergy DIZZINESS Verified 04/21/18 14:01 - Medications Medications: Current Medications Docusate Sodium (Colace) 100 mg PO DAILY [facility] Last Admin: 08/10/18 08:01 Dose: 100 mg Meropenem 500 mg/ Sodium (Chloride) 100 mls @ 100 mls/hr IVPB Q12 [facility] PRN Reason: Protocol Last Admin: 04/22/18 08:00 Dose: 100 mls/hr Fluconazole (Diflucan Iv 100 Mg/50 Ml Ns) 50 mls @ 50 mls/hr IVPB DAILY@1700 [facility] Oxycodone HCl (Oxycontin Extended Release Tab) 20 mg PO Q12 [facility] Last Admin: 04/22/18 08:02 Dose: 20 mg Oxycodone HCl (Oxycodone Immediate Release Tab) 10 mg PO Q6 PRN PRN Reason: Pain, moderate (4-7) Last Admin: 04/22/18 03:00 Dose: 10 mg Pantoprazole Sodium (Protonix Ec Tab) 40 mg PO DAILY [facility] Last Admin: 04/22/18 08:01 Dose: 40 mg Senna/Docusate Sodium (Senokot S 50 Mg-8.6 Mg) 1 tab PO [facility] Last Admin: 04/21/18 21:51 Dose: 1 tab Tamsulosin HCl (Flomax) 0.4 mg PO [facility] Last Admin: 04/21/18 21:51 Dose: 0.4 mg Physical Exam - Constitutional Appears: No Acute Distress - Head Exam Head Exam: ATRAUMATIC - Eye Exam Eye Exam: EOMI - ENT Exam ENT Exam: Normal Oropharynx - Neck Exam Neck exam: Positive for: Full Rom - Respiratory Exam Respiratory Exam: Clear to Auscultation Bilateral, NORMAL BREATHING PATTERN - Cardiovascular Exam Cardiovascular Exam: RRR, +S1, +S2 - GI/Abdominal Exam GI & Abdominal Exam: Normal Bowel Sounds, Soft Additional comments: NT, ND - Extremities Exam Extremities exam: Positive for: normal inspection - Back Exam Additional comments: B/L nephrostomy tubes presnt no erythema urine in the b/l bags clear - Neurological Exam Neurological exam: Alert, Oriented x3 Results - Vital Signs Recent Vital Signs: Last Vital Signs Temp 97.9 F 04/22/18 08:45 Pulse 74 04/22/18 08:45 Resp 20 04/22/18 08:45 BP 139/68 04/22/18 08:45 Pulse Ox 100 04/22/18 08:45 - Labs Labs: Laboratory Results - last 24 hr 04/21/18 04/21/18 16:16 20:50 POC Glucose (mg/dL) 123 H 146 H Microbiology 04/19/18 07:27 Sputum Gram Stain - Final 04/19/18 07:27 Sputum Sputum Culture - Final Yeast Species 04/17/18 12:00 Urine,Veliz Urine Culture - Final Serratia Marcescens 04/18/18 19:20 Blood-Venous Blood Culture - Preliminary 04/18/18 19:20 Blood-Venous NO GROWTH AFTER 3 DAYS 04/18/18 19:10 Blood-Venous Blood Culture - Preliminary 04/18/18 19:10 Blood-Venous NO GROWTH AFTER 3 DAYS Assessment & Plan (1) Complicated UTI (urinary tract infection) Status: Acute (2) Back pain Status: Acute (3) Leukopenia Status: Acute (4) Low back pain Status: Acute (5) Malignant neoplasm metastatic from bladder Status: Acute - Assessment and Plan (Free Text) Assessment: A/P- 78 year old male with 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 afebrile Leukopenia improved. + UA Urine cx- serratia marsecens sens to meropenem plan- continue with IV meropnem day #4 for UTI, serratia is sens to it. advise total of 10 days of IV abx for the UTI. hence 6 more days. oncologist to decide whether pt. needs radiation for bony mets . Thank you for this consult.
[2018-04-22] MEDS: Fluconazole IV 100mg/50 ml NS 50 ML IVPB SCH (17:17)
[2018-04-22] MEDS: Docusate-Senna 50 mg-8.6 mg Tab PO SCH (22:02)
[2018-04-23] MEDS: oxyCODONE 10 mg Immediate Release Tab PO PRN ×3 (03:36→22:26)
[2018-04-23] MEDS: Pantoprazole 40 mg EC Tab PO SCH (08:29)
[2018-04-23] MEDS: oxyCODONE 20 mg ER Tab (oxyCONTIN) PO SCH ×2 (08:31→20:13)
[2018-04-23] MEDS: Meropenem 500 MG in Sodium Chloride 0.9% 100 ML IVPB SCH ×2 (08:32→20:18)
[2018-04-23] MEDS: Fluconazole IV 100mg/50 ml NS 50 ML IVPB SCH (16:39)
--- NOTE | 2018-04-23 18:23 | CP.PCM.PN ---
Subjective - Date & Time of Evaluation Date of Evaluation: 04/23/18 Time of Evaluation: 16:00 - Subjective Subjective: Feeling better, participating in rehab Objective - Vital Signs/Intake and Output Vital Signs (last 24 hours): Temp Pulse Resp BP Pulse Ox 97.9 F 67 20 113/48 L 100 04/23/18 15:58 04/23/18 15:58 04/23/18 15:58 04/23/18 15:58 04/23/18 15:58 - Medications Medications: Current Medications Docusate Sodium (Colace) 100 mg PO DAILY [facility] Last Admin: 04/23/18 08:28 Dose: 100 mg Meropenem 500 mg/ Sodium (Chloride) 100 mls @ 100 mls/hr IVPB Q12 [facility] PRN Reason: Protocol Last Admin: 04/23/18 08:32 Dose: 100 mls/hr Fluconazole (Diflucan Iv 100 Mg/50 Ml Ns) 50 mls @ 50 mls/hr IVPB DAILY@1700 [facility] Last Admin: 04/23/18 16:39 Dose: 50 mls/hr Oxycodone HCl (Oxycontin Extended Release Tab) 20 mg PO Q12 [facility] Last Admin: 04/23/18 08:31 Dose: 20 mg Oxycodone HCl (Oxycodone Immediate Release Tab) 10 mg PO Q6 PRN PRN Reason: Pain, moderate (4-7) Last Admin: 04/23/18 12:04 Dose: 10 mg Pantoprazole Sodium (Protonix Ec Tab) 40 mg PO DAILY [facility] Last Admin: 04/23/18 08:29 Dose: 40 mg Senna/Docusate Sodium (Senokot S 50 Mg-8.6 Mg) 1 tab PO [facility] Last Admin: 04/22/18 22:02 Dose: 1 tab Tamsulosin HCl (Flomax) 0.4 mg PO [facility] Last Admin: 04/22/18 22:02 Dose: 0.4 mg - Head Exam Head Exam: ATRAUMATIC - Eye Exam Eye Exam: Normal appearance - ENT Exam ENT Exam: Mucous Membranes Dry - Respiratory Exam Respiratory Exam: NORMAL BREATHING PATTERN - Cardiovascular Exam Cardiovascular Exam: +S1, +S2 - GI/Abdominal Exam GI & Abdominal Exam: Normal Bowel Sounds - Extremities Exam Extremities Exam: Normal Inspection Assessment and Plan (1) Pancytopenia Assessment & Plan: secondary to chemotherapy s/p transfusion support repeat CBC Wednesday Status: Acute (2) Bladder cancer Assessment & Plan: stage IV lymph node and bone metastasis outpatient chemotherapy Status: Chronic
[2018-04-23] MEDS: Docusate-Senna 50 mg-8.6 mg Tab PO SCH (22:27)
--- NOTE | 2018-04-24 04:44 | CP.PCM.PN ---
Subjective - Date & Time of Evaluation Date of Evaluation: 04/23/18 Time of Evaluation: 20:10 Objective - Vital Signs/Intake and Output Vital Signs (last 24 hours): Temp Pulse Resp BP Pulse Ox 98.4 F 73 20 99/47 L 100 04/23/18 20:17 04/23/18 20:17 04/23/18 20:17 04/23/18 20:17 04/23/18 20:17 - Medications Medications: Current Medications Docusate Sodium (Colace) 100 mg PO DAILY [facility] Last Admin: 04/23/18 08:28 Dose: 100 mg Meropenem 500 mg/ Sodium (Chloride) 100 mls @ 100 mls/hr IVPB Q12 [facility] PRN Reason: Protocol Last Admin: 04/23/18 20:18 Dose: 100 mls/hr Fluconazole (Diflucan Iv 100 Mg/50 Ml Ns) 50 mls @ 50 mls/hr IVPB DAILY@1700 [facility] Last Admin: 04/23/18 16:39 Dose: 50 mls/hr Oxycodone HCl (Oxycontin Extended Release Tab) 20 mg PO Q12 [facility] Last Admin: 04/23/18 20:13 Dose: 20 mg Oxycodone HCl (Oxycodone Immediate Release Tab) 10 mg PO Q6 PRN PRN Reason: Pain, moderate (4-7) Last Admin: 04/23/18 22:26 Dose: 10 mg Pantoprazole Sodium (Protonix Ec Tab) 40 mg PO DAILY [facility] Last Admin: 04/23/18 08:29 Dose: 40 mg Senna/Docusate Sodium (Senokot S 50 Mg-8.6 Mg) 1 tab PO HS [facility] Last Admin: 04/23/18 22:27 Dose: 1 tab Tamsulosin HCl (Flomax) 0.4 mg PO HS [facility] Last Admin: 04/23/18 22:27 Dose: 0.4 mg
--- NOTE | 2018-04-24 04:44 | CP.PCM.PN ---
Subjective - Date & Time of Evaluation Date of Evaluation: 04/22/18 Time of Evaluation: 20:15 Objective - Vital Signs/Intake and Output Vital Signs (last 24 hours): Temp Pulse Resp BP Pulse Ox 98.4 F 73 20 99/47 L 100 04/23/18 20:17 04/23/18 20:17 04/23/18 20:17 04/23/18 20:17 04/23/18 20:17 - Medications Medications: Current Medications Docusate Sodium (Colace) 100 mg PO DAILY [facility] Last Admin: 04/23/18 08:28 Dose: 100 mg Meropenem 500 mg/ Sodium (Chloride) 100 mls @ 100 mls/hr IVPB Q12 [facility] PRN Reason: Protocol Last Admin: 04/23/18 20:18 Dose: 100 mls/hr Fluconazole (Diflucan Iv 100 Mg/50 Ml Ns) 50 mls @ 50 mls/hr IVPB DAILY@1700 [facility] Last Admin: 04/23/18 16:39 Dose: 50 mls/hr Oxycodone HCl (Oxycontin Extended Release Tab) 20 mg PO Q12 [facility] Last Admin: 04/23/18 20:13 Dose: 20 mg Oxycodone HCl (Oxycodone Immediate Release Tab) 10 mg PO Q6 PRN PRN Reason: Pain, moderate (4-7) Last Admin: 04/23/18 22:26 Dose: 10 mg Pantoprazole Sodium (Protonix Ec Tab) 40 mg PO DAILY [facility] Last Admin: 04/23/18 08:29 Dose: 40 mg Senna/Docusate Sodium (Senokot S 50 Mg-8.6 Mg) 1 tab PO HS [facility] Last Admin: 04/23/18 22:27 Dose: 1 tab Tamsulosin HCl (Flomax) 0.4 mg PO HS [facility] Last Admin: 04/23/18 22:27 Dose: 0.4 mg
[2018-04-24] MEDS: oxyCODONE 10 mg Immediate Release Tab PO PRN ×2 (05:49→13:40)
[2018-04-24] MEDS: oxyCODONE 20 mg ER Tab (oxyCONTIN) PO SCH ×2 (09:18→22:34)
[2018-04-24] MEDS: Pantoprazole 40 mg EC Tab PO SCH (09:19)
[2018-04-24] MEDS: Meropenem 500 MG in Sodium Chloride 0.9% 100 ML IVPB SCH ×2 (09:19→22:34)
[2018-04-24] MEDS: Fluconazole IV 100mg/50 ml NS 50 ML IVPB SCH (16:35)
--- NOTE | 2018-04-24 21:12 | CP.PCM.PN ---
Subjective - Date & Time of Evaluation Date of Evaluation: 04/24/18 Time of Evaluation: 13:00 - Subjective Subjective: Patient remains stable. Has no fever. Has depressive sx Has poor intake Objective - Vital Signs/Intake and Output Vital Signs (last 24 hours): Temp Pulse Resp BP Pulse Ox 98.2 F 79 20 114/55 L 100 04/24/18 20:39 04/24/18 20:39 04/24/18 20:39 04/24/18 20:39 04/24/18 20:39 Intake and Output: 04/24/18 04/25/18 18:59 06:59 Output Total 650 Balance -650 - Medications Medications: Current Medications Docusate Sodium (Colace) 100 mg PO DAILY [facility] Last Admin: 04/24/18 09:18 Dose: 100 mg Meropenem 500 mg/ Sodium (Chloride) 100 mls @ 100 mls/hr IVPB Q12 [facility] PRN Reason: Protocol Last Admin: 04/24/18 09:19 Dose: 100 mls/hr Fluconazole (Diflucan Iv 100 Mg/50 Ml Ns) 50 mls @ 50 mls/hr IVPB DAILY@1700 [facility] Last Admin: 04/24/18 16:35 Dose: 50 mls/hr Oxycodone HCl (Oxycontin Extended Release Tab) 20 mg PO Q12 [facility] Last Admin: 04/24/18 09:18 Dose: 20 mg Oxycodone HCl (Oxycodone Immediate Release Tab) 10 mg PO Q6 PRN PRN Reason: Pain, moderate (4-7) Last Admin: 04/24/18 13:40 Dose: 10 mg Pantoprazole Sodium (Protonix Ec Tab) 40 mg PO DAILY [facility] Last Admin: 04/24/18 09:19 Dose: 40 mg Senna/Docusate Sodium (Senokot S 50 Mg-8.6 Mg) 1 tab PO [facility] Last Admin: 04/23/18 22:27 Dose: 1 tab Tamsulosin HCl (Flomax) 0.4 mg PO [facility] Last Admin: 04/23/18 22:27 Dose: 0.4 mg - Eye Exam Eye Exam: Normal appearance - ENT Exam ENT Exam: Mucous Membranes Moist - Respiratory Exam Respiratory Exam: Clear to Ausculation Bilateral - Cardiovascular Exam Cardiovascular Exam: REGULAR RHYTHM - GI/Abdominal Exam GI & Abdominal Exam: Normal Bowel Sounds Assessment and Plan (1) Pancytopenia Status: Acute (2) Bladder cancer Status: Chronic (3) Depression Status: Acute - Assessment and Plan (Free Text) Plan: Cont meds Cont tx Cont PT start low dose antidepressant.
[2018-04-24] MEDS: Docusate-Senna 50 mg-8.6 mg Tab PO SCH (22:35)
[2018-04-25] MEDS: oxyCODONE 10 mg Immediate Release Tab PO PRN ×3 (00:15→17:50)
[2018-04-25 05:12] LABS: BASO % 0.8 % (0.0-2.0); EOS # 0.1 K/uL (0.0-0.7); EOS % 1.4 % (0.0-4.0); HEMOGLOBIN 9.4 g/dL (12.0-18.0); LYMPH # 1.2 K/uL (1.0-4.3); LYMPH % 33.1 % (20.0-40.0); MEAN CELL VOLUME 88.8 fl (80.0-94.0); MEAN CORPUSCULAR HGB CONC 33.8 g/dL (33.0-37.0); MEAN PLATELET VOLUME 7.8 fl (7.2-11.7); MONO # 0.4 K/uL (0.0-0.8); MONO % 11.8 % (0.0-10.0); NEUT # 1.9 K/uL (1.8-7.0); NEUT % 52.9 % (50.0-75.0); NRBC % 0.1 % (0.0-0.0); RBC 3.13 Mil/uL (4.40-5.90); RED CELL DISTRIBUTION WIDTH 19.2 % (11.5-14.5); WHITE BLOOD COUNT 3.6 K/uL (4.8-10.8)
[2018-04-25 06:04] LABS: ALB/GLOB RATIO 1.1 (1.0-2.1); ALBUMIN 3.6 g/dL (3.5-5.0); ALT/SGPT 18 U/L (21-72); AST/SGOT 25 U/L (17-59); BLOOD UREA NITROGEN 24 mg/dl (9-20); CALCIUM 8.7 mg/dL (8.4-10.2); GFR AFRICAN-AMERICAN > 60; GFR NON-AFRICAN AMERICAN > 60
[2018-04-25] MEDS: oxyCODONE 20 mg ER Tab (oxyCONTIN) PO SCH ×2 (08:29→21:50)
[2018-04-25] MEDS: Pantoprazole 40 mg EC Tab PO SCH (08:30)
[2018-04-25] MEDS ORDERED: Lidocaine 2% Jelly (Uro-Jet) TOP ONE (10:00)
[2018-04-25] MEDS: Meropenem 500 MG in Sodium Chloride 0.9% 100 ML IVPB SCH ×2 (10:00→21:49)
--- NOTE | 2018-04-25 10:39 | CP.PCM.PN ---
Subjective - Date & Time of Evaluation Date of Evaluation: 04/25/18 Time of Evaluation: 10:39 - Subjective Subjective: ID note- Pt. seen and examined. No new events. remains afebrile. Objective - Vital Signs/Intake and Output Vital Signs (last 24 hours): Temp Pulse Resp BP Pulse Ox 97.9 F 70 20 120/55 L 100 04/25/18 08:17 04/25/18 08:17 04/25/18 08:17 04/25/18 08:17 04/25/18 08:17 Intake and Output: 04/25/18 04/25/18 06:59 18:59 Output Total 400 Balance -400 - Medications Medications: Current Medications Docusate Sodium (Colace) 100 mg PO DAILY [facility] Last Admin: 04/25/18 08:29 Dose: 100 mg Meropenem 500 mg/ Sodium (Chloride) 100 mls @ 100 mls/hr IVPB Q12 [facility] PRN Reason: Protocol Last Admin: 04/24/18 22:34 Dose: 100 mls/hr Fluconazole (Diflucan Iv 100 Mg/50 Ml Ns) 50 mls @ 50 mls/hr IVPB DAILY@1700 [facility] Last Admin: 04/24/18 16:35 Dose: 50 mls/hr Lidocaine/Prilocaine (Lidocaine/Prilocaine 2.5%-2.5%) 1 applic TP ONCE ONE Stop: 04/25/18 10:46 Oxycodone HCl (Oxycontin Extended Release Tab) 20 mg PO Q12 [facility] Last Admin: 04/25/18 08:29 Dose: 20 mg Oxycodone HCl (Oxycodone Immediate Release Tab) 10 mg PO Q6 PRN PRN Reason: Pain, moderate (4-7) Last Admin: 04/25/18 05:32 Dose: 10 mg Pantoprazole Sodium (Protonix Ec Tab) 40 mg PO DAILY [facility] Last Admin: 04/25/18 08:30 Dose: 40 mg Senna/Docusate Sodium (Senokot S 50 Mg-8.6 Mg) 1 tab PO HS [facility] Last Admin: 04/24/18 22:35 Dose: 1 tab Tamsulosin HCl (Flomax) 0.4 mg PO HS [facility] Last Admin: 04/24/18 22:34 Dose: 0.4 mg - Labs Labs: - Additional Findings Additional findings: - Constitutional Appears: No Acute Distress - Head Exam Head Exam: ATRAUMATIC - Eye Exam Eye Exam: EOMI - ENT Exam ENT Exam: Normal Oropharynx - Neck Exam Neck exam: Positive for: Full Rom - Respiratory Exam Respiratory Exam: Clear to Auscultation Bilateral, NORMAL BREATHING PATTERN - Cardiovascular Exam Cardiovascular Exam: RRR, +S1, +S2 - GI/Abdominal Exam GI & Abdominal Exam: Normal Bowel Sounds, Soft Additional comments: NT, ND - Extremities Exam Extremities exam: Positive for: normal inspection - Back Exam Additional comments: B/L nephrostomy tubes present no erythema - Neurological Exam Neurological exam: Alert, Oriented x 3 Laboratory Results - last 72 hr 04/22/18 04/23/18 04/23/18 20:49 06:30 11:47 WBC RBC Hgb Hct MCV MCH MCHC RDW Plt Count MPV Neut % (Auto) Lymph % (Auto) [place] % (Auto) Eos % (Auto) Baso % (Auto) Neut # (Auto) Lymph # (Auto) [place] # (Auto) Eos # (Auto) Baso # (Auto) Sodium Potassium Chloride Carbon Dioxide Anion Gap BUN Creatinine Est GFR ( Amer) Est GFR (Non-Af Amer) POC Glucose (mg/dL) 133 H 90 121 H Random Glucose Calcium Phosphorus Magnesium Total Bilirubin AST ALT Alkaline Phosphatase Total Protein Albumin Globulin Albumin/Globulin Ratio 04/23/18 04/23/18 04/24/18 16:19 20:38 05:23 WBC RBC Hgb Hct MCV MCH MCHC RDW Plt Count MPV Neut % (Auto) Lymph % (Auto) [place] % (Auto) Eos % (Auto) Baso % (Auto) Neut # (Auto) Lymph # (Auto) [place] # (Auto) Eos # (Auto) Baso # (Auto) Sodium Potassium Chloride Carbon Dioxide Anion Gap BUN Creatinine Est GFR ( Amer) Est GFR (Non-Af Amer) POC Glucose (mg/dL) 126 H 116 H 95 Random Glucose Calcium Phosphorus Magnesium Total Bilirubin AST ALT Alkaline Phosphatase Total Protein Albumin Globulin Albumin/Globulin Ratio 04/24/18 04/24/18 04/24/18 11:09 16:12 20:36 WBC RBC Hgb Hct MCV MCH MCHC RDW Plt Count MPV Neut % (Auto) Lymph % (Auto) [place] % (Auto) Eos % (Auto) Baso % (Auto) Neut # (Auto) Lymph # (Auto) [place] # (Auto) Eos # (Auto) Baso # (Auto) Sodium Potassium Chloride Carbon Dioxide Anion Gap BUN Creatinine Est GFR ( Amer) Est GFR (Non-Af Amer) POC Glucose (mg/dL) 136 H 124 H 125 H Random Glucose Calcium Phosphorus Magnesium Total Bilirubin AST ALT Alkaline Phosphatase Total Protein Albumin Globulin Albumin/Globulin Ratio 04/25/18 04/25/18 04/25/18 04:55 04:55 05:46 WBC 3.6 L RBC 3.13 L Hgb 9.4 L Hct 27.8 L MCV 88.8 MCH 30.0 MCHC 33.8 RDW 19.2 H Plt Count 22 L* D MPV 7.8 Neut % (Auto) 52.9 Lymph % (Auto) 33.1 [place] % (Auto) 11.8 H Eos % (Auto) 1.4 Baso % (Auto) 0.8 Neut # (Auto) 1.9 Lymph # (Auto) 1.2 [place] # (Auto) 0.4 Eos # (Auto) 0.1 Baso # (Auto) 0.0 Sodium 137 Potassium 5.2 H Chloride 104 Carbon Dioxide 27 Anion Gap 11 BUN 24 H Creatinine 1.1 Est GFR ( Amer) > 60 Est GFR (Non-Af Amer) > 60 POC Glucose (mg/dL) 94 Random Glucose 104 Calcium 8.7 Phosphorus 3.4 Magnesium 1.7 Total Bilirubin 0.7 AST 25 ALT 18 L D Alkaline Phosphatase 1199 H Total Protein 6.7 Albumin 3.6 Globulin 3.2 Albumin/Globulin Ratio 1.1 04/25/18 11:30 WBC RBC Hgb Hct MCV MCH MCHC RDW Plt Count MPV Neut % (Auto) Lymph % (Auto) [place] % (Auto) Eos % (Auto) Baso % (Auto) Neut # (Auto) Lymph # (Auto) [place] # (Auto) Eos # (Auto) Baso # (Auto) Sodium Potassium Chloride Carbon Dioxide Anion Gap BUN Creatinine Est GFR ( Amer) Est GFR (Non-Af Amer) POC Glucose (mg/dL) 136 H Random Glucose Calcium Phosphorus Magnesium Total Bilirubin AST ALT Alkaline Phosphatase Total Protein Albumin Globulin Albumin/Globulin Ratio Microbiology 04/19/18 07:27 Sputum Gram Stain - Final 04/19/18 07:27 Sputum Sputum Culture - Final Yeast Species 04/18/18 19:20 Blood-Venous Blood Culture - Final 04/18/18 19:20 Blood-Venous Gram Stain - Final NO GROWTH AFTER 5 DAYS TEST NOT PERFORMED 04/18/18 19:10 Blood-Venous Blood Culture - Final 04/18/18 19:10 Blood-Venous Gram Stain - Final NO GROWTH AFTER 5 DAYS TEST NOT PERFORMED 04/17/18 12:00 Urine,Veliz Urine Culture - Final Serratia Marcescens Assessment and Plan (1) Complicated UTI (urinary tract infection) Status: Acute (2) Back pain Status: Acute (3) Leukopenia Status: Acute (4) Low back pain Status: Acute (5) Malignant neoplasm metastatic from bladder Status: Acute - Assessment and Plan (Free Text) Assessment: A/P- 78 year old male with 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 afebrile Leukopenia improved. + UA Urine cx- serratia marsecens sens to meropenem plan- continue with IV meropnem day #7 for UTI, serratia is sens to it. advise total of 10 days of IV abx for the UTI. hence 3 more days.
[2018-04-25] MEDS ORDERED: Lidocaine/Prilocaine CREAM 5GM TP ONE (10:45)
[2018-04-25] MEDS: Fluconazole IV 100mg/50 ml NS 50 ML IVPB SCH (16:22)
[2018-04-25] MEDS: Docusate-Senna 50 mg-8.6 mg Tab PO SCH (21:50)
[2018-04-26] MEDS: oxyCODONE 10 mg Immediate Release Tab PO PRN (06:42)
[2018-04-26] MEDS: Meropenem 500 MG in Sodium Chloride 0.9% 100 ML IVPB SCH ×2 (09:12→20:45)
[2018-04-26] MEDS: oxyCODONE 20 mg ER Tab (oxyCONTIN) PO SCH ×2 (09:12→20:44)
[2018-04-26] MEDS: Pantoprazole 40 mg EC Tab PO SCH (09:13)
[2018-04-26] MEDS: Fluconazole IV 100mg/50 ml NS 50 ML IVPB SCH (16:05)
--- NOTE | 2018-04-26 21:43 | CP.PCM.PN ---
Subjective - Date & Time of Evaluation Date of Evaluation: 04/26/18 Time of Evaluation: 12:00 - Subjective Subjective: Slept well after Ambien Objective - Vital Signs/Intake and Output Vital Signs (last 24 hours): Temp Pulse Resp BP Pulse Ox 98.1 F 83 20 118/51 L 99 04/26/18 20:10 04/26/18 20:10 04/26/18 20:10 04/26/18 20:10 04/26/18 20:10 - Medications Medications: Current Medications Docusate Sodium (Colace) 100 mg PO DAILY [facility] Last Admin: 04/26/18 09:14 Dose: 100 mg Escitalopram Oxalate (Lexapro) 5 mg PO DAILY [facility] Last Admin: 04/26/18 09:14 Dose: 5 mg Meropenem 500 mg/ Sodium (Chloride) 100 mls @ 100 mls/hr IVPB Q12 [facility] PRN Reason: Protocol Last Admin: 04/26/18 20:45 Dose: 100 mls/hr Fluconazole (Diflucan Iv 100 Mg/50 Ml Ns) 50 mls @ 50 mls/hr IVPB DAILY@1700 [facility] Last Admin: 04/26/18 16:05 Dose: 50 mls/hr Oxycodone HCl (Oxycontin Extended Release Tab) 20 mg PO Q12 [facility] Last Admin: 04/26/18 20:44 Dose: 20 mg Oxycodone HCl (Oxycodone Immediate Release Tab) 10 mg PO Q6 PRN PRN Reason: Pain, moderate (4-7) Last Admin: 04/26/18 06:42 Dose: 10 mg Pantoprazole Sodium (Protonix Ec Tab) 40 mg PO DAILY [facility] Last Admin: 04/26/18 09:13 Dose: 40 mg Senna/Docusate Sodium (Senokot S 50 Mg-8.6 Mg) 1 tab PO [facility] Last Admin: 04/25/18 21:50 Dose: 1 tab Tamsulosin HCl (Flomax) 0.4 mg PO HS [facility] Last Admin: 04/25/18 21:49 Dose: 0.4 mg Zolpidem Tartrate (Ambien) 5 mg PO HS [facility] Last Admin: 04/25/18 23:12 Dose: 5 mg - Labs Labs: 04/25/18 04:55 04/25/18 04:55 - Head Exam Head Exam: ATRAUMATIC - Eye Exam Eye Exam: Normal appearance - ENT Exam ENT Exam: Mucous Membranes Dry - Respiratory Exam Respiratory Exam: NORMAL BREATHING PATTERN - Cardiovascular Exam Cardiovascular Exam: +S1, +S2 - GI/Abdominal Exam GI & Abdominal Exam: Normal Bowel Sounds Assessment and Plan (1) Pancytopenia Assessment & Plan: secondary to chemotherapy s/p PRBC transfusion repeat CBC on Status: Acute (2) Bladder cancer Assessment & Plan: stage IV lymph node and bone mets outpatient chemotherapy Thank you for this interesting consult. Status: Chronic
[2018-04-26] MEDS: Docusate-Senna 50 mg-8.6 mg Tab PO SCH (22:08)
[2018-04-27] MEDS: oxyCODONE 10 mg Immediate Release Tab PO PRN (05:27)
--- NOTE | 2018-04-27 07:20 | CP.PCM.PN ---
Subjective - Date & Time of Evaluation Date of Evaluation: 04/25/18 Time of Evaluation: 10:00 - Subjective Subjective: Patient feels depressed. Has poor appetite Attends to therapy Noted anemia. Platelet 22. No site of any bleed or hematoma/ ecchymoses. Objective - Vital Signs/Intake and Output Vital Signs (last 24 hours): Temp Pulse Resp BP Pulse Ox 98.1 F 83 20 118/51 L 99 04/26/18 20:10 04/26/18 20:10 04/26/18 20:10 04/26/18 20:10 04/26/18 20:10 Intake and Output: 04/27/18 04/27/18 06:59 18:59 Intake Total 100 Output Total 800 Balance -700 - Medications Medications: Current Medications Docusate Sodium (Colace) 100 mg PO DAILY [facility] Last Admin: 04/26/18 09:14 Dose: 100 mg Escitalopram Oxalate (Lexapro) 5 mg PO DAILY [facility] Last Admin: 04/26/18 09:14 Dose: 5 mg Meropenem 500 mg/ Sodium (Chloride) 100 mls @ 100 mls/hr IVPB Q12 [facility] PRN Reason: Protocol Last Admin: 04/26/18 20:45 Dose: 100 mls/hr Fluconazole (Diflucan Iv 100 Mg/50 Ml Ns) 50 mls @ 50 mls/hr IVPB DAILY@1700 [facility] Last Admin: 04/26/18 16:05 Dose: 50 mls/hr Oxycodone HCl (Oxycontin Extended Release Tab) 20 mg PO Q12 [facility] Last Admin: 04/26/18 20:44 Dose: 20 mg Oxycodone HCl (Oxycodone Immediate Release Tab) 10 mg PO Q6 PRN PRN Reason: Pain, moderate (4-7) Last Admin: 04/27/18 05:27 Dose: 10 mg Pantoprazole Sodium (Protonix Ec Tab) 40 mg PO DAILY [facility] Last Admin: 04/26/18 09:13 Dose: 40 mg Senna/Docusate Sodium (Senokot S 50 Mg-8.6 Mg) 1 tab PO HS [facility] Last Admin: 04/26/18 22:08 Dose: 1 tab Tamsulosin HCl (Flomax) 0.4 mg PO [facility] Last Admin: 04/26/18 22:08 Dose: 0.4 mg Zolpidem Tartrate (Ambien) 5 mg PO HS [facility] Last Admin: 04/26/18 22:08 Dose: 5 mg - Labs Labs: 04/25/18 04:55 04/25/18 04:55 - Head Exam Head Exam: NORMAL INSPECTION - Eye Exam Eye Exam: Normal appearance - ENT Exam ENT Exam: Mucous Membranes Moist - Respiratory Exam Respiratory Exam: Clear to Ausculation Bilateral - Cardiovascular Exam Cardiovascular Exam: REGULAR RHYTHM - GI/Abdominal Exam GI & Abdominal Exam: Normal Bowel Sounds - Psychiatric Exam Psychiatric exam: Depressed Assessment and Plan (1) Pancytopenia Status: Acute (2) Bladder cancer Status: Chronic (3) Depression Status: Acute - Assessment and Plan (Free Text) Plan: Cont meds start Lexapro cont phys therapy Discussed with Dr valverde.
--- NOTE | 2018-04-27 07:24 | CP.PCM.PN ---
Subjective - Date & Time of Evaluation Date of Evaluation: 04/26/18 Time of Evaluation: 10:25 - Subjective Subjective: Patient feels the same Very down in spirits Poor intake Objective - Vital Signs/Intake and Output Vital Signs (last 24 hours): Temp Pulse Resp BP Pulse Ox 98.1 F 83 20 118/51 L 99 04/26/18 20:10 04/26/18 20:10 04/26/18 20:10 04/26/18 20:10 04/26/18 20:10 Intake and Output: 04/27/18 04/27/18 06:59 18:59 Intake Total 100 Output Total 800 Balance -700 - Medications Medications: Current Medications Docusate Sodium (Colace) 100 mg PO DAILY [facility] Last Admin: 04/26/18 09:14 Dose: 100 mg Escitalopram Oxalate (Lexapro) 5 mg PO DAILY [facility] Last Admin: 04/26/18 09:14 Dose: 5 mg Meropenem 500 mg/ Sodium (Chloride) 100 mls @ 100 mls/hr IVPB Q12 [facility] PRN Reason: Protocol Last Admin: 04/26/18 20:45 Dose: 100 mls/hr Fluconazole (Diflucan Iv 100 Mg/50 Ml Ns) 50 mls @ 50 mls/hr IVPB DAILY@1700 [facility] Last Admin: 04/26/18 16:05 Dose: 50 mls/hr Oxycodone HCl (Oxycontin Extended Release Tab) 20 mg PO Q12 [facility] Last Admin: 04/26/18 20:44 Dose: 20 mg Oxycodone HCl (Oxycodone Immediate Release Tab) 10 mg PO Q6 PRN PRN Reason: Pain, moderate (4-7) Last Admin: 04/27/18 05:27 Dose: 10 mg Pantoprazole Sodium (Protonix Ec Tab) 40 mg PO DAILY [facility] Last Admin: 04/26/18 09:13 Dose: 40 mg Senna/Docusate Sodium (Senokot S 50 Mg-8.6 Mg) 1 tab PO HS [facility] Last Admin: 04/26/18 22:08 Dose: 1 tab Tamsulosin HCl (Flomax) 0.4 mg PO HS [facility] Last Admin: 04/26/18 22:08 Dose: 0.4 mg Zolpidem Tartrate (Ambien) 5 mg PO HS [facility] Last Admin: 04/26/18 22:08 Dose: 5 mg - Labs Labs: 04/25/18 04:55 04/25/18 04:55 - Head Exam Head Exam: NORMAL INSPECTION - Eye Exam Eye Exam: Normal appearance - ENT Exam ENT Exam: Mucous Membranes Moist - Respiratory Exam Respiratory Exam: Clear to Ausculation Bilateral - Cardiovascular Exam Cardiovascular Exam: REGULAR RHYTHM - GI/Abdominal Exam GI & Abdominal Exam: Normal Bowel Sounds - Neurological Exam Neurological Exam: Awake, Oriented x3 Assessment and Plan (1) Pancytopenia Status: Acute (2) Bladder cancer Status: Chronic (3) Depression Status: Acute - Assessment and Plan (Free Text) Plan: Cont meds start low dose lexapro cont PT
[2018-04-27] MEDS: Pantoprazole 40 mg EC Tab PO SCH (09:30)
[2018-04-27] MEDS: Meropenem 500 MG in Sodium Chloride 0.9% 100 ML IVPB SCH ×2 (09:31→21:54)
[2018-04-27] MEDS: oxyCODONE 20 mg ER Tab (oxyCONTIN) PO SCH ×2 (09:31→21:54)
[2018-04-27] MEDS: Fluconazole IV 100mg/50 ml NS 50 ML IVPB SCH (17:46)
--- NOTE | 2018-04-27 19:21 | CP.PCM.PN ---
Subjective - Date & Time of Evaluation Date of Evaluation: 04/27/18 Time of Evaluation: 18:45 Objective - Vital Signs/Intake and Output Vital Signs (last 24 hours): Temp Pulse Resp BP Pulse Ox 97.7 F 75 20 111/55 L 99 04/27/18 18:04 04/27/18 18:04 04/27/18 18:04 04/27/18 18:04 04/27/18 18:04 - Medications Medications: Current Medications Docusate Sodium (Colace) 100 mg PO DAILY [facility] Last Admin: 04/27/18 09:30 Dose: 100 mg Escitalopram Oxalate (Lexapro) 5 mg PO DAILY [facility] Last Admin: 04/27/18 09:30 Dose: 5 mg Meropenem 500 mg/ Sodium (Chloride) 100 mls @ 100 mls/hr IVPB Q12 [facility] PRN Reason: Protocol Last Admin: 04/27/18 09:31 Dose: 100 mls/hr Oxycodone HCl (Oxycontin Extended Release Tab) 20 mg PO Q12 [facility] Last Admin: 04/27/18 09:31 Dose: 20 mg Oxycodone HCl (Oxycodone Immediate Release Tab) 10 mg PO Q6 PRN PRN Reason: Pain, moderate (4-7) Last Admin: 04/27/18 05:27 Dose: 10 mg Pantoprazole Sodium (Protonix Ec Tab) 40 mg PO DAILY [facility] Last Admin: 04/27/18 09:30 Dose: 40 mg Senna/Docusate Sodium (Senokot S 50 Mg-8.6 Mg) 1 tab PO HS [facility] Last Admin: 04/26/18 22:08 Dose: 1 tab Tamsulosin HCl (Flomax) 0.4 mg PO HS [facility] Last Admin: 04/26/18 22:08 Dose: 0.4 mg Zolpidem Tartrate (Ambien) 5 mg PO HS [facility] Last Admin: 04/26/18 22:08 Dose: 5 mg - Labs Labs: 04/25/18 04:55 04/25/18 04:55
[2018-04-27] MEDS: Docusate-Senna 50 mg-8.6 mg Tab PO SCH (21:56)
[2018-04-28] MEDS: oxyCODONE 10 mg Immediate Release Tab PO PRN ×3 (00:40→21:29)
[2018-04-28 07:06] LABS: BASO % 0.5 % (0.0-2.0); EOS # 0.1 K/uL (0.0-0.7); EOS % 2.7 % (0.0-4.0); HEMOGLOBIN 8.6 g/dL (12.0-18.0); LYMPH % 37.1 % (20.0-40.0); MEAN CORPUSCULAR HEMOGLOBIN 30.5 pg (27.0-31.0); MEAN CORPUSCULAR HGB CONC 34.3 g/dL (33.0-37.0); MEAN PLATELET VOLUME 7.3 fl (7.2-11.7); MONO # 0.5 K/uL (0.0-0.8); MONO % 17.5 % (0.0-10.0); NEUT # 1.1 K/uL (1.8-7.0); NEUT % 42.2 % (50.0-75.0); NRBC % 0.3 % (0.0-0.0); RBC 2.83 Mil/uL (4.40-5.90); RED CELL DISTRIBUTION WIDTH 20.2 % (11.5-14.5); WHITE BLOOD COUNT 2.6 K/uL (4.8-10.8)
[2018-04-28] MEDS: Meropenem 500 MG in Sodium Chloride 0.9% 100 ML IVPB SCH ×2 (09:01→20:24)
[2018-04-28] MEDS: Pantoprazole 40 mg EC Tab PO SCH (09:03)
[2018-04-28] MEDS: oxyCODONE 20 mg ER Tab (oxyCONTIN) PO SCH (20:04)
[2018-04-28] MEDS: Docusate-Senna 50 mg-8.6 mg Tab PO SCH (21:10)
[2018-04-28] MEDS ORDERED: Sucralfate 1 gm/10 ml Oral Susp UD PO SCH (22:00)
[2018-04-29] MEDS ORDERED: Sucralfate 1 gm/10 ml Oral Susp UD PO PRN (00:49)
--- NOTE | 2018-04-29 04:52 | CP.PCM.PN ---
Subjective - Date & Time of Evaluation Date of Evaluation: 04/28/18 Time of Evaluation: 19:35 Objective - Vital Signs/Intake and Output Vital Signs (last 24 hours): Temp Pulse Resp BP Pulse Ox 98.1 F 75 20 114/54 L 96 04/28/18 21:02 04/28/18 21:02 04/28/18 21:02 04/28/18 21:02 04/28/18 21:02 - Medications Medications: Current Medications Docusate Sodium (Colace) 100 mg PO DAILY [facility] Last Admin: 04/28/18 09:03 Dose: 100 mg Escitalopram Oxalate (Lexapro) 5 mg PO DAILY [facility] Last Admin: 04/28/18 09:02 Dose: 5 mg Meropenem 500 mg/ Sodium (Chloride) 100 mls @ 100 mls/hr IVPB Q12 [facility] PRN Reason: Protocol Last Admin: 04/28/18 20:24 Dose: 100 mls/hr Oxycodone HCl (Oxycodone Immediate Release Tab) 10 mg PO Q6 PRN PRN Reason: Pain, moderate (4-7) Last Admin: 04/28/18 21:29 Dose: 10 mg Oxycodone HCl (Oxycontin Extended Release Tab) 20 mg PO Q12 [facility] Last Admin: 04/28/18 20:04 Dose: 20 mg Pantoprazole Sodium (Protonix Ec Tab) 40 mg PO DAILY [facility] Last Admin: 04/28/18 09:03 Dose: 40 mg Senna/Docusate Sodium (Senokot S 50 Mg-8.6 Mg) 1 tab PO HS [facility] Last Admin: 04/28/18 21:10 Dose: 1 tab Sucralfate (Carafate Oral Susp) 1 gm PO Q6H PRN PRN Reason: Indigestion Tamsulosin HCl (Flomax) 0.4 mg PO HS [facility] Last Admin: 04/28/18 21:10 Dose: 0.4 mg Zolpidem Tartrate (Ambien) 5 mg PO HS [facility] Last Admin: 04/28/18 21:33 Dose: 5 mg - Labs Labs: 04/28/18 06:20 04/25/18 04:55
[2018-04-29] MEDS: oxyCODONE 20 mg ER Tab (oxyCONTIN) PO SCH (08:16)
[2018-04-29] MEDS: Meropenem 500 MG in Sodium Chloride 0.9% 100 ML IVPB SCH (08:17)
[2018-04-29] MEDS: Pantoprazole 40 mg EC Tab PO SCH (08:19)
[2018-04-29 08:33] VITALS: BP 116/56; PULSE 80; TEMP 98.2; O2SAT 97
--- NOTE | 2018-04-29 19:21 | CP.PCM.PN ---
Subjective - Date & Time of Evaluation Date of Evaluation: 04/28/18 Time of Evaluation: 13:00 - Subjective Subjective: No complaints. Objective - Vital Signs/Intake and Output Vital Signs (last 24 hours): Temp Pulse Resp BP Pulse Ox 98.2 F 80 20 116/56 L 97 04/29/18 08:32 04/29/18 08:32 04/29/18 08:32 04/29/18 08:32 04/29/18 08:32 - Labs Labs: 04/28/18 06:20 04/25/18 04:55 - Head Exam Head Exam: ATRAUMATIC - Eye Exam Eye Exam: Normal appearance - ENT Exam ENT Exam: Mucous Membranes Dry - Respiratory Exam Respiratory Exam: NORMAL BREATHING PATTERN - Cardiovascular Exam Cardiovascular Exam: +S1, +S2 - GI/Abdominal Exam GI & Abdominal Exam: Normal Bowel Sounds Assessment and Plan (1) Pancytopenia Assessment & Plan: secondary to chemotherapy counts fairly stable outpatient monitoring Status: Acute (2) Bladder cancer Assessment & Plan: stage IV bone and LN metastasis outpatient treatment Status: Chronic
== END 2018-04-29 14:20 | disposition home health service (06) | DRG 809 ==
LOC: H.TCU 14:05
PROVIDERS: ADMIT Internal Medicine; ATTEND Internal Medicine
PROC: F07Z9FZ Gait Training/Functional Ambulation Treatment using Assistive, Adaptive, Supportive or Protective Equipment (ICD-10-PCS; principal; 2018-04-21)
PROC: 3E03329 Introduction of Other Anti-infective into Peripheral Vein, Percutaneous Approach (ICD-10-PCS; 2018-04-21)
PROC: F08Z4FZ Home Management Treatment using Assistive, Adaptive, Supportive or Protective Equipment (ICD-10-PCS; 2018-04-21)
PROC: F07M6FZ Therapeutic Exercise Treatment of Musculoskeletal System - Whole Body using Assistive, Adaptive, Supportive or Protective Equipment (ICD-10-PCS; 2018-04-22)
DX: D61.818 Other pancytopenia (principal); C77.9 Secondary and unspecified malignant neoplasm of lymph node, unspecified; N39.0 Urinary tract infection, site not specified; C79.51 Secondary malignant neoplasm of bone; Z85.51 Personal history of malignant neoplasm of bladder; E11.9 Type 2 diabetes mellitus without complications; F32.9 Major depressive disorder, single episode, unspecified; M54.5 Low back pain; Z92.21 Personal history of antineoplastic chemotherapy; Z87.891 Personal history of nicotine dependence; Z88.6 Allergy status to analgesic agent

== ENCOUNTER 2018-05-22 19:42 | Emergency (ER) | payer MEDICARE ==
[2018-05-22 19:42] VITALS: BMI 23.8
[2018-05-22 20:14] VITALS: RESP 18
[2018-05-22 21:23] LABS: BASO % 0.8 % (0.0-2.0); EOS # 0.1 K/uL (0.0-0.7); EOS % 3.7 % (0.0-4.0); HEMOGLOBIN 8.1 g/dL (12.0-18.0); LYMPH # 0.4 K/uL (1.0-4.3); LYMPH % 18.3 % (20.0-40.0); MEAN CELL VOLUME 92.8 fl (80.0-94.0); MEAN CORPUSCULAR HEMOGLOBIN 31.4 pg (27.0-31.0); MEAN CORPUSCULAR HGB CONC 33.8 g/dL (33.0-37.0); MEAN PLATELET VOLUME 6.3 fl (7.2-11.7); MONO # 0.3 K/uL (0.0-0.8); MONO % 15.8 % (0.0-10.0); NEUT # 1.3 K/uL (1.8-7.0); NEUT % 61.4 % (50.0-75.0); NRBC % 0.2 % (0.0-0.0); RBC 2.58 Mil/uL (4.40-5.90); RED CELL DISTRIBUTION WIDTH 22.9 % (11.5-14.5); WHITE BLOOD COUNT 2.1 K/uL (4.8-10.8)
--- NOTE | 2018-05-22 21:51 | ED PDOC ---
HPI: Abdomen Time Seen by Provider: 05/22/18 20:17 Chief Complaint (Nursing): Abdominal Pain Chief Complaint (Provider): Abdominal Pain History Per: Patient History/Exam Limitations: no limitations Onset/Duration Of Symptoms: Hrs Current Symptoms Are (Timing): Constant Location Of Pain/Discomfort: Diffuse Associated Symptoms: Nausea. denies: Fever, Vomiting, Diarrhea, Chest Pain, Urinary Symptoms Additional Complaint(s): 78 y/o male with a PMHx of cancer and chronic back pain presents to the ED complaining of constant diffuse abdominal pain, onset earlier this morning. Patient reports pain is associated with nausea. Patient further states he does not urinate due to bladder cancer. Patient reports he has bilateral nephrostomy for urination. Patient states he is currently in radiation therapy and has recently finished chemotherapy. Patient reports he is currently taking Percocet and Oxycodone for pain. Denies vomiting, diarrhea, urinary problems, fever and chest pain. PMD: Travon Mariscal Jr. Oncologist: Gopal Brewer Urologist: Murray Dewey Past Medical History Reviewed: Historical Data, Nursing Documentation, Vital Signs Vital Signs: Last Vital Signs Temp 98.1 F 05/22/18 23:50 Pulse 83 05/22/18 23:50 Resp 18 05/22/18 23:50 BP 136/68 05/22/18 23:50 Pulse Ox 98 05/23/18 00:08 - Medical History PMH: Anemia, Depression, Diabetes, Peripheral Edema (BLE), Chronic Pain (Back ) Denies: HIV, Chronic Kidney Disease Other PMH: Cancer - Surgical History Surgical History: Hernia Repair Other surgeries: Bilateral nephrostomy - Family History Family History: States: Unknown Family Hx - Home Medications Home Medications: Ambulatory Orders Medication Instructions Recorded Tamsulosin [Flomax] 0.4 mg PO HS 02/12/18 oxyCODONE [oxyCODONE Immediate 1 tab PO PRN PRN 04/17/18 Release Tab] Docusate Sodium/Sennosides A 1 tab PO HS tab 04/21/18 [Senokot S 50 MG-8.6 MG] Pantoprazole [Protonix EC Tab] 40 mg PO DAILY ect 04/21/18 Docusate [Colace] 100 mg PO DAILY #90 cap 04/29/18 Escitalopram [Lexapro] 5 mg PO DAILY tab 04/29/18 Sucralfate [Carafate Oral Susp] 1 gm PO Q6H PRN udc 04/29/18 Zolpidem [Ambien] 5 mg PO HS tab 04/29/18 Sulfamethoxazole/Trimethoprim 1 each PO BID #20 tablet 05/23/18 [Bactrim Ds Tablet] - Allergies Allergies/Adverse Reactions: Allergies Allergy/AdvReac Type Severity Reaction Status Date / Time aspirin Allergy DIZZINESS Verified 04/21/18 14:01 Review of Systems ROS Statement: Except As Marked, All Systems Reviewed And Found Negative Constitutional: Negative for: Fever Cardiovascular: Negative for: Chest Pain Gastrointestinal: Positive for: Nausea, Abdominal Pain. Negative for: Vomiting , Diarrhea Genitourinary Male: Negative for: Dysuria, Frequency, Hematuria Physical Exam - Reviewed Nursing Documentation Reviewed: Yes Vital Signs Reviewed: Yes - Physical Exam Appears: Positive for: No Acute Distress Head Exam: Positive for: ATRAUMATIC, NORMOCEPHALIC Skin: Positive for: Normal Color, Warm, Dry Eye Exam: Positive for: Normal appearance, EOMI, PERRL Neck: Positive for: Normal, Painless ROM Cardiovascular/Chest: Positive for: Regular Rate, Rhythm. Negative for: Murmur Respiratory: Positive for: Normal Breath Sounds. Negative for: Respiratory Distress Gastrointestinal/Abdominal: Positive for: Tenderness (diffuse) Back: Positive for: Normal Inspection, Other (Bilateral nephrostomy tubes draining urine into urine bag.). Negative for: L CVA Tenderness, R CVA Tenderness, Vertebral Tenderness Extremity: Positive for: Normal ROM. Negative for: Deformity Neurologic/Psych: Positive for: Alert, Oriented. Negative for: Motor/Sensory Deficits - Laboratory Results Result Diagrams: 05/22/18 21:17 05/22/18 21:17 - ECG O2 Sat by Pulse Oximetry: 98 (RA) Pulse Ox Interpretation: Normal Medical Decision Making Medical Decision Making: Time: 2045 Impression: abdominal pain Differentials include mobile obstruction, UTI, radiation colitis. Any other conditions considered but not listed including ischemic colitis and AAA. Plan: -- CT Abd/Pelvis IV Contrast -- EKG -- CMP -- Lipase -- ED Urine Dipstick -- CBC with differentials -- Urine C&S -- Urinalysis 23:38 CT Abd Pelvis IV FINDINGS: Lung bases: Scattered bleeding lung bases.Patchy and streaky opacities in the right lung base could either represent subsegmental atelectasis and/or developing infiltrate. Correlate clinically. ABDOMEN: Liver: Unremarkable. Gallbladder and bile ducts: Unremarkable. No calcified stones. No ductal dilation. Pancreas: Partially atrophic Spleen: Unremarkable. No splenomegaly. Adrenals: Unremarkable. No mass. Kidneys and ureters: Right percutaneous nephrostomy. No right hydronephrosis. Left percutaneous nephrostomy noted. Mild left hydronephrosis. Stomach and bowel: Unremarkable. No dilated bowel loops. PELVIS: Appendix: No findings to suggest acute appendicitis. Bladder: Heterogeneous opacities in the urinary bladder, concerning for malignancy. Underlying hemorrhage not excluded. Reproductive: Enlarged prostate. Correlate with physical examination and PSA levels. Underlying neoplasm is not excluded. ABDOMEN and PELVIS: Intraperitoneal space: Unremarkable. No free air. No drainable fluid collection. Bones/joints: Multiple osteoblastic lesions concerning for metastatic disease in the visualized skeleton. No acute fracture. No dislocation. Soft tissues: Unremarkable. Vasculature: Atherosclerotic calcifications. No abdominal aortic aneurysm. Lymph nodes: Extensive retroperitoneal and bilateral pelvic lymphadenopathy, slightly increased in size since the prior, concerning for malignancy/ metastatic disease. IMPRESSION: 1. Heterogeneous opacities in the urinary bladder, concerning for malignancy. Underlying hemorrhage not excluded. 2. Enlarged prostate. Correlate with physical examination and PSA levels. Underlying neoplasm is not excluded. 3. Extensive retroperitoneal and bilateral pelvic lymphadenopathy, slightly increased in size since the prior, concerning for malignancy/metastatic disease. 4. Right percutaneous nephrostomy. No right hydronephrosis. Left percutaneous nephrostomy noted. Mild left hydronephrosis. 5. Scattered bleeding lung bases.Patchy and streaky opacities in the right lung base could either represent subsegmental atelectasis and/or developing infiltrate. Correlate clinically. Scribe Attestation: Documented by Jose Healy acting as a scribe for Sarah Alexander MD. Provider Scribe Attestation: All medical record entries made by the Scribe were at my direction and personally dictated by me. I have reviewed the chart and agree that the record accurately reflects my personal performance of the history, physical exam, medical decision making, and the department course for this patient. I have also personally directed, reviewed, and agree with the discharge instructions and disposition. Disposition - Clinical Impression Clinical Impression: Pancytopenia due to antineoplastic chemotherapy, Abdominal pain, Anemia, Bladder cancer, Back pain, Urinary tract infection associated with nephrostomy catheter - Patient ED Disposition Is Patient to be Admitted: No Doctor Will See Patient In The: Office Counseled Patient/Family Regarding: Studies Performed, Diagnosis, Need For Followup - Disposition Referrals: Travon Mariscal Jr., MD [Medical Doctor] - Gopal Brewer MD [Staff Provider] - Murray Dewey MD [Medical Doctor] - Disposition: Routine/Home Disposition Time: 00:11 Condition: GOOD Additional Instructions: RIANNA SNOW, thank you for letting us take care of you today. Your provider was Sarah Alexander MD and you were treated for ABD PAIN. The emergency medical care you received today was directed at your acute symptoms. If you were prescribed any medication, please fill it and take as directed. It may take several days for your symptoms to resolve. Return to the Emergency Department if your symptoms worsen, do not improve, or if you have any other problems. Please contact your doctor or call one of the physicians/clinics you have been referred to that are listed on the Patient Visit Information form that is included in your discharge packet. Bring any paperwork you were given at discharge with you along with any medications you are taking to your follow up visit. Our treatment cannot replace ongoing medical care by a primary care provider outside of the emergency department. Thank you for allowing the [facility] team to be part of your care today. If you had an X-Ray or CT scan: A Radiologist will review the ED reading if any change in treatment is needed we will contact you. If you had a blood, urine, or wound culture: It will take several days for the results, if any change in treatment is needed we will contact you. If you had an STI test: It will take 48 hours for the results. Please call after 1 week if you have not heard back. Prescriptions: Sulfamethoxazole/Trimethoprim [Bactrim Ds Tablet] 1 each PO BID #20 tablet Instructions: Chronic Pain (DC), Nausea and Vomiting, Adult (DC), Bladder Cancer (DC), Urinary Tract Infections in Adults Forms: [facility] (Omani) Print Language: LAO
[2018-05-22 21:58] LABS: URINE BACTERIA MOD (<OCC); URINE BILIRUBIN NEGATIVE (NEGATIVE); URINE BLOOD SMALL (NEGATIVE); URINE CLARITY TURBID (Clear); URINE COLOR YELLOW (YELLOW); URINE GLUCOSE (UA) NEG (Normal); URINE LEUKOCYTE ESTERASE LARGE Leu/uL (Negative); URINE PROTEIN 100 mg/dL (NEGATIVE); URINE UROBILINOGEN 0.2-1.0 mg/dL (0.2-1.0)
[2018-05-22 21:59] LABS: ALB/GLOB RATIO 1.2 (1.0-2.1); ALBUMIN 3.6 g/dL (3.5-5.0); ALT/SGPT 27 U/L (21-72); AST/SGOT 30 U/L (17-59); BLOOD UREA NITROGEN 20 mg/dl (9-20); CALCIUM 8.9 mg/dL (8.4-10.2); GFR NON-AFRICAN AMERICAN > 60; LIPASE < 10 U/L (23-300)
[2018-05-22] MEDS ORDERED: Sodium Chloride 0.9% 50 ML IV ONE (22:33)
[2018-05-22] MEDS ORDERED: Iohexol 300 100 ML IJ ONE (22:33)
[2018-05-22 23:58] VITALS: BP 136/68; PULSE 83; TEMP 98.1
[2018-05-23 00:08] VITALS: O2SAT 98
[2018-05-23] MEDS ORDERED: Morphine 4 MG/ML VIAL IVP ONE (00:26)
[2018-05-23] MEDS ORDERED: Morphine 4 MG/ML VIAL ONE (00:26)
--- NOTE | 2018-05-23 07:03 | CARD ---
APPROVED REPORT Date of service: 05/22/2018 EKG Measurement Heart [id number] <Conclusion> Sinus rhythm with premature atrial complexes Incomplete right bundle branch block Borderline ECG
--- NOTE | 2018-05-23 10:43 | CT ---
Date of service: 05/22/2018 PROCEDURE: CT Abdomen and Pelvis with contrast HISTORY: abdominal pain hx of bladder CA/nephrostomies COMPARISON: Abdomen pelvis CT examination 04/17/2018. TECHNIQUE: Following the intravenous administration of iodinated contrast material, a CT examination of the abdomen and pelvis performed from the domes of the diaphragms to the symphysis pubis with reformatted datasets provided in axial, sagittal and coronal planes. Oral contrast was not administered as per referring physician request. Contrast dose: Omnipaque 300, 90 cc Radiation dose: Total exam DLP = 446.34 mGy-cm. This CT exam was performed using one or more of the following dose reduction techniques: Automated exposure control, adjustment of the mA and/or kV according to patient size, and/or use of iterative reconstruction technique. FINDINGS: LOWER THORAX: Fibrotic changes are reiterated at the right lower lobe base posteriorly. No pleural or pericardial effusion. Nodularity is associated with right lower lobe fibrosis once again. Extensive COPD appreciated. Small hiatal hernia reiterated. LIVER: No masses appreciated however periportal edema is suggested which is a nonspecific finding. GALLBLADDER AND BILE DUCTS: Gallbladder is distended but without mural thickening or radiodense cholelithiasis once again. Common hepatic duct measures 8.4 mm with common bile duct normal caliber overall. No choledocholithiasis appreciated. PANCREAS: Pancreas remains atrophic without gross mass evident. SPLEEN: Unremarkable. ADRENALS: Unremarkable. No mass. KIDNEYS AND URETERS: Bilateral nephrostomies are in position once again with right renal atrophy noted and left kidney normal in overall size. No obstructive uropathy bilaterally. VASCULATURE: Unremarkable. No aortic aneurysm. BOWEL: Bowel is not appear obstructed. Evaluation of the gastrointestinal tract is limited due the lack of oral contrast administration. Moderate fecal loading is seen throughout the large bowel potentially reflecting mild constipation. Developing rectal fecal impaction is suggested. APPENDIX: Normal appendix. PERITONEUM: Peritoneal fat appears injected as well as the extra abdominal fat, suggesting anasarca. No ascites appreciable this time more free intra peritoneal gas. LYMPH NODES: Retroperitoneal lymphadenopathy is again identified including a 3.4 x 2.5 cm left periaortic lymph node and upper iliac lymph node measuring 3.7 x 2.5 cm. BLADDER: Irregular mural thickening of the urinary bladder is reiterated this patient history of bladder cancer. Urinary bladder is it is partially decompressed. REPRODUCTIVE: Grossly enlarged prostate gland reiterated. BONES: Diffuse blastic metastases are seen throughout the visualized thoracolumbar spine sacrum and pelvis. Limited spondylolisthesis L4-5 reiterated. No fracture identified. OTHER FINDINGS: None. IMPRESSION: Bilateral nephrostomies in situ once again without definite hydronephrosis bilaterally. Urinary bladder is partially decompressed with mural thickening remaining irregular and heterogeneous in enhancement pattern with patient's history urinary bladder cancer. Markedly enlarged prostate gland again evident. Diffuse osteoblastic metastases again identified throughout the bony abdomen and pelvis with stable retroperitoneal lymphadenopathy. Other than anasarca, no definite no definite acute interval change. Concordant preliminary report from [facility], 05/22/2018.
== END 2018-05-23 00:44 | disposition home or self-care (01) ==
LOC: H.ER 19:42
DX: D61.810 Antineoplastic chemotherapy induced pancytopenia (principal); C67.9 Malignant neoplasm of bladder, unspecified; C79.51 Secondary malignant neoplasm of bone; N39.0 Urinary tract infection, site not specified; M54.9 Dorsalgia, unspecified; D64.9 Anemia, unspecified; E11.9 Type 2 diabetes mellitus without complications; G89.29 Other chronic pain
CPT/HCPCS: 74177; 80053; 81003; 83690; 85025; 87086; 93005; 96374; 99284; J2270; Q9967

== ENCOUNTER 2018-05-27 12:40 | Inpatient (IN) | payer MEDICARE ==
[2018-05-27 12:40] VITALS: BMI 23.8
--- NOTE | 2018-05-27 13:44 | ED PDOC ---
HPI: Altered Mental Status <Janee Lee - Last Filed: 05/27/18 14:41> Chief Complaint (Provider): Weakness/confusion History Per: Family History/Exam Limitations: Clinical Condition Onset/Duration Of Symptoms: Days Current Symptoms Are (Timing): Still Present Description Of Symptoms: Confused Usual Baseline: Alert Oriented, Ambulatory Use Of Anticoag/Antiplatlets: No Decreased Ability To: Walk Associated Symptoms: Confused, Agitated, Not Eating Additional Complaint(s): Pt is an 78 yo M w/ hx of Stage 4 bladder cancer w. B/L nephrostomy tubes presents to ED with weakness and AMS. Patient was previously admitted to [facility] on 05/22 was diagnosed with a UTI given Bactrim and D/c home. F/u Urine cx showed Vanc resistant UTI sensitive to Linezolid patient was told to return to ED for change in antibiotic. On presentation patient was confused and agitated history was given by son whom he lives with. Patient started having weakness 2 days ago , decreased appetite and fatigue denies subjective fevers. Son states patient had chemo a few weeks ago and radiation last wednesday, he needed 2 blood transfusions in February and March for anemia. PMD: Travon Mariscal Jr. Oncologist: Gopal Brewer Urologist: Murray Dewey <Aury Gay - Last Filed: 05/27/18 16:27> Time Seen by Provider: 05/27/18 12:49 Chief Complaint (Nursing): Weakness/Neurological Deficit Supervising Attending Note - Supervising Attending Note The Documented history was done by the: Physician Sap Ppm Consultant The documented physical exam was done by the: Physician Sap Ppm Consultant The documented procedures were done by the: Physician Sap Ppm Consultant - Attestation: I have personally seen and examined this patient.: Yes I have fully participated in the care of the patient.: Yes I have reviewed all pertinent clinical information: Yes <Janee Lee - Last Filed: 05/27/18 14:41> Past Medical History Vital Signs: Last Vital Signs Temp 97 F L 05/27/18 12:49 Pulse 93 H 05/27/18 12:49 Resp 18 05/27/18 12:49 BP 121/58 L 05/27/18 12:49 Pulse Ox 97 05/27/18 14:29 <Janee Lee - Last Filed: 05/27/18 14:41> Vital Signs: Last Vital Signs Temp 97 F L 05/27/18 12:49 Pulse 93 H 05/27/18 12:49 Resp 18 05/27/18 12:49 BP 121/58 L 05/27/18 12:49 Pulse Ox 97 05/27/18 12:49 - Medical History PMH: Anemia, Benign Prostatic Hyperplasia, Depression, Diabetes, Peripheral Edema (BLE), Chronic Pain (Back ) Denies: HIV, Chronic Kidney Disease Other PMH: Stage 4 Bladder Cancer with Mets - Surgical History Surgical History: Hernia Repair - Family History Family History: States: Unknown Family Hx Other Family History: Aunt-Breast Cancer - Living Arrangements Living Arrangements: With Family (With son) - Social History Current smoker - smoking cessation education provided: No Ex-Smoker (has not smoked in the last 12 months): Yes (24 yr hx 1PPD) Alcohol: None Drugs: Denies <Aury Gay - Last Filed: 05/27/18 16:27> - Home Medications Home Medications: Ambulatory Orders Medication Instructions Recorded Tamsulosin [Flomax] 0.4 mg PO HS 02/12/18 oxyCODONE [oxyCODONE Immediate 1 tab PO PRN PRN 04/17/18 Release Tab] Docusate Sodium/Sennosides A 1 tab PO HS tab 04/21/18 [Senokot S 50 MG-8.6 MG] - Allergies Allergies/Adverse Reactions: Allergies Allergy/AdvReac Type Severity Reaction Status Date / Time aspirin Allergy DIZZINESS Verified 05/27/18 12:49 Review of Systems Constitutional: Positive for: Weakness Neurological: Positive for: Weakness, Confusion, Altered Mental Status <Aury Gay - Last Filed: 05/27/18 16:27> Physical Exam - Physical Exam Appears: Positive for: Non-toxic, No Acute Distress, Uncomfortable Head Exam: Positive for: ATRAUMATIC, NORMAL INSPECTION, NORMOCEPHALIC Skin: Positive for: Normal Color Eye Exam: Positive for: Normal appearance, EOMI ENT: Positive for: Normal ENT Inspection Cardiovascular/Chest: Positive for: Regular Rate, Rhythm, Other (Right sided Chemo Port ) Respiratory: Positive for: Normal Breath Sounds Gastrointestinal/Abdominal: Positive for: Normal Exam, Soft Back: Positive for: Other (B/L nephrostomy tubes filled with yellow cloudy sediment urine ) Neurologic/Psych: Positive for: Other (Altered Mental Status) <Aury Gay - Last Filed: 05/27/18 16:27> - Laboratory Results Result Diagrams: 05/27/18 13:55 05/27/18 13:55 <Janee Lee - Last Filed: 05/27/18 14:41> - Laboratory Results Result Diagrams: 05/27/18 13:55 05/27/18 13:55 - ECG O2 Sat by Pulse Oximetry: 97 - Progress ED Course And Treament: Pt is an 78 yo M here for weakness and confusion. -CBC -CMP -VBG with Shock Panel -Blood Cx -Urine Cx -CXR -EKG -Consulted ID- Dr. Salinas -Aram given- K 5.4 -Type and cross 1 unit- Hg 7.8 -Admit pt, place pt on tele BUN 56, Cr 4.6 <Aury Gay - Last Filed: 05/27/18 16:27> Disposition <Janee Lee - Last Filed: 05/27/18 14:41> - Patient ED Disposition Is Patient to be Admitted: Yes - Disposition Disposition: Transfer of Care Disposition Time: 16:27 <Aury Gay - Last Filed: 05/27/18 16:27> - Clinical Impression Clinical Impression: UTI (urinary tract infection) - Disposition Condition: FAIR
[2018-05-27 14:05] LABS: VENOUS BLOOD GAS BASE EXCESS -5.3 mmol/L (0.0-2.0); VENOUS BLOOD GAS PCO2 37 mmHg (40-60); VENOUS BLOOD GAS PO2 39 mm/Hg (30-55); VENOUS BLOOD PH 7.34 (7.32-7.43)
[2018-05-27 14:10] LABS: BASO % 0.5 % (0.0-2.0); EOS # 0.1 K/uL (0.0-0.7); EOS % 1.8 % (0.0-4.0); HEMOGLOBIN 7.8 g/dL (12.0-18.0); LYMPH # 0.3 K/uL (1.0-4.3); LYMPH % 8.4 % (20.0-40.0); MEAN CELL VOLUME 92.5 fl (80.0-94.0); MEAN CORPUSCULAR HEMOGLOBIN 31.9 pg (27.0-31.0); MEAN CORPUSCULAR HGB CONC 34.5 g/dL (33.0-37.0); MEAN PLATELET VOLUME 6.1 fl (7.2-11.7); MONO # 0.5 K/uL (0.0-0.8); MONO % 16.9 % (0.0-10.0); NEUT # 2.3 K/uL (1.8-7.0); NEUT % 72.4 % (50.0-75.0); PLATELET COUNT 155 K/uL (130-400); RBC 2.45 Mil/uL (4.40-5.90); RED CELL DISTRIBUTION WIDTH 22.4 % (11.5-14.5); WHITE BLOOD COUNT 3.2 K/uL (4.8-10.8)
--- NOTE | 2018-05-27 14:16 | RAD ---
Date of service: 05/27/2018 HISTORY: Weakness COMPARISON: 04/17/2018. TECHNIQUE: Chest PA and lateral FINDINGS: LUNGS: No active pulmonary disease. PLEURA: No significant pleural effusion identified. No pneumothorax apparent. CARDIOVASCULAR: No radiographic findings to suggest acute or significant cardiovascular disease. Venous access catheter in stable, satisfactory position. OSSEOUS STRUCTURES: Diffuse sclerotic disease affecting virtually every vertebral body. Additional findings identified in left humerus. VISUALIZED UPPER ABDOMEN: Normal. OTHER FINDINGS: None. IMPRESSION: No active disease. Diffuse skeletal metastatic disease.
[2018-05-27 14:19] LABS: ALBUMIN 3.4 g/dL (3.5-5.0); CALCIUM 8.3 mg/dL (8.4-10.2)
[2018-05-27 14:20] LABS: ALB/GLOB RATIO 1.1 (1.0-2.1)
[2018-05-27 14:41] LABS: BANDS 2 % (0-2); EOSINOPHIL 2 % (0-7); LYMPHOCYTE 11 % (20-50); MONOCYTE 12 % (0-10); NEUTROPHIL 73 % (42-75); TOTAL CELLS COUNTED 100
[2018-05-27 14:42] LABS: PLATELET ESTIMATE NORMAL (NORMAL)
[2018-05-27 14:43] LABS: ANISOCYTOSIS MODERATE; HYPOCHROMIC SLIGHT; TOXIC GRANULATION PRESENT
[2018-05-27] MEDS ORDERED: Sod Polystyrene Sulf 15 gm/60 ml Susp PO ONE (14:47)
[2018-05-27] MEDS ORDERED: Sod Polystyrene Sulf 15 gm/60 ml Susp ONE (15:21)
[2018-05-27] MEDS ORDERED: oxyCODONE 10 mg Immediate Release Tab PO PRN (17:31)
--- NOTE | 2018-05-27 19:25 | CP.PCM.HP ---
<Anil Solorzano - Last Filed: 05/27/18 19:33> History of Present Illness - History of Present Illness History of Present Illness: Pt seen and examined at bedside with Dr. 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 Shellie Dewey fmhx: breast cancer soc: denies smoking, alcohol, illicit drugs lives with son surg: nephrostomy tubes with urine drain x 2 allergy to aspirin Present on Admission - Present on Admission Any Indicators Present on Admission: No History of Uncontrolled Diabetes: No Urinary Catheter: Yes (Nephrostomy tubes x2) Review of Systems - Constitutional Constitutional: As Per HPI - Cardiovascular Cardiovascular: absent: Chest Pain - Respiratory Respiratory: absent: Cough, Dyspnea - Gastrointestinal Gastrointestinal: absent: Abdominal Pain Past Patient History - Infectious Disease Hx of Infectious Diseases: None - Past Medical History & Family History Past Medical History?: Yes - Past Social History Smoking Status: Former Smoker Alcohol: None Drugs: Denies Home Situation {Lives}: With Family - CARDIAC Hx Peripheral Edema: Yes (BLE) - PULMONARY Hx Respiratory Disorders: No - NEUROLOGICAL Hx Neurological Disorder: No - HEENT Hx HEENT Problems: No - RENAL Hx Chronic Kidney Disease: No - ENDOCRINE/METABOLIC Hx Diabetes Mellitus Type 2: Yes - HEMATOLOGICAL/ONCOLOGICAL Hx AIDS: No Hx Anemia: Yes Hx Human Immunodeficiency Virus (HIV): No - INTEGUMENTARY Hx Dermatological Problems: No - MUSCULOSKELETAL/RHEUMATOLOGICAL Hx Falls: No - GASTROINTESTINAL Hx Gastrointestinal Disorders: No Other/Comment: TURBT - GENITOURINARY/GYNECOLOGICAL Hx Genitourinary Disorders: Yes 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 Hx cystoscopy - Transurethral resection of bladder tumor 12/06/17. Hx Bilateral Nephrostomy tube excharge 03/30. Right portacath - ANESTHESIA Hx Anesthesia: Yes Hx Anesthesia Reactions: No Hx Malignant Hyperthermia: No Meds Allergies/Adverse Reactions: Allergies Allergy/AdvReac Type Severity Reaction Status Date / Time aspirin Allergy DIZZINESS Verified 05/27/18 12:49 Physical Exam - Eye Exam Eye Exam: EOMI - Respiratory Exam Respiratory Exam: Clear to Auscultation Bilateral, NORMAL BREATHING PATTERN - Cardiovascular Exam Cardiovascular Exam: +S1, +S2 - GI/Abdominal Exam GI & Abdominal Exam: Normal Bowel Sounds, Soft. absent: Tenderness - Back Exam Back exam: absent: CVA tenderness (L), CVA tenderness (R) - Neurological Exam Neurological exam: Alert, CN II-XII Intact Results - Vital Signs Recent Vital Signs: Last Vital Signs Temp 98.2 F 05/27/18 17:21 Pulse 91 H 05/27/18 17:21 Resp 18 05/27/18 17:21 BP 127/51 L 05/27/18 17:21 Pulse Ox 96 05/27/18 17:21 - Labs Result Diagrams: 05/27/18 13:55 05/27/18 13:55 Labs: Laboratory Results - last 24 hr 05/27/18 05/27/18 05/27/18 13:03 13:41 13:55 WBC 3.2 L D RBC 2.45 L Hgb 7.8 L Hct 22.7 L MCV 92.5 MCH 31.9 H MCHC 34.5 RDW 22.4 H Plt Count 155 MPV 6.1 L Neut % (Auto) 72.4 Lymph % (Auto) 8.4 L [place] % (Auto) 16.9 H Eos % (Auto) 1.8 Baso % (Auto) 0.5 Neut # (Auto) 2.3 Lymph # (Auto) 0.3 L [place] # (Auto) 0.5 Eos # (Auto) 0.1 Baso # (Auto) 0.0 Neutrophils % (Manual) 73 Band Neutrophils % 2 Lymphocytes % (Manual) 11 L Monocytes % (Manual) 12 H Eosinophils % (Manual) 2 Toxic Granulation Present Platelet Estimate Normal Hypochromasia (manual) Slight Anisocytosis (manual) Moderate pO2 39 VBG pH 7.34 VBG pCO2 37 L VBG HCO3 20.4 VBG Total CO2 21.1 L VBG O2 Sat (Calc) 74.0 H VBG Base Excess -5.3 L VBG Potassium 5.4 H Sodium 136.0 Chloride 107.0 Glucose 105 Lactate 0.8 FiO2 21.0 Potassium Carbon Dioxide Anion Gap BUN Creatinine Est GFR ( Amer) Est GFR (Non-Af Amer) POC Glucose (mg/dL) 103 Random Glucose Calcium Total Bilirubin AST ALT Alkaline Phosphatase Total Protein Albumin Globulin Albumin/Globulin Ratio Venous Blood Potassium 5.4 H Blood Type Antibody Screen Crossmatch BBK History Checked 05/27/18 05/27/18 13:55 15:00 WBC RBC Hgb Hct MCV MCH MCHC RDW Plt Count MPV Neut % (Auto) Lymph % (Auto) [place] % (Auto) Eos % (Auto) Baso % (Auto) Neut # (Auto) Lymph # (Auto) [place] # (Auto) Eos # (Auto) Baso # (Auto) Neutrophils % (Manual) Band Neutrophils % Lymphocytes % (Manual) Monocytes % (Manual) Eosinophils % (Manual) Toxic Granulation Platelet Estimate Hypochromasia (manual) Anisocytosis (manual) pO2 VBG pH VBG pCO2 VBG HCO3 VBG Total CO2 VBG O2 Sat (Calc) VBG Base Excess VBG Potassium Sodium 137 Chloride 107 Glucose Lactate FiO2 Potassium 5.4 H Carbon Dioxide 19 L Anion Gap 16 BUN 56 H Creatinine 4.6 H Est GFR ( Amer) 15 Est GFR (Non-Af Amer) 12 POC Glucose (mg/dL) Random Glucose 104 Calcium 8.3 L Total Bilirubin 1.2 AST 41 ALT 32 Alkaline Phosphatase 1265 H Total Protein 6.4 Albumin 3.4 L Globulin 3.0 Albumin/Globulin Ratio 1.1 Venous Blood Potassium Blood Type B POSITIVE Antibody Screen Negative Crossmatch See Detail BBK History Checked Patient has bt Assessment & Plan (1) UTI (urinary tract infection) Status: Acute - Assessment and Plan (Free Text) Plan: 78 yo M with pmhx of 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 Beatriz solorzano md pgy2 <Vinay Henderson - Last Filed: 05/28/18 21:07> Results - Vital Signs Recent Vital Signs: Last Vital Signs Temp 99.1 F 05/28/18 20:07 Pulse 86 05/28/18 20:07 Resp 17 05/28/18 20:07 BP 106/51 L 05/28/18 20:07 Pulse Ox 98 05/28/18 20:07 - Labs Result Diagrams: 05/28/18 08:19 05/27/18 13:55 Labs: Laboratory Results - last 24 hr 05/27/18 05/27/18 05/27/18 15:00 22:30 22:30 WBC RBC Hgb Hct MCV MCH MCHC RDW Plt Count Retic Count Iron < 10 L TIBC 205 L % Saturation 4.87 L Ferritin 1620.0 H Vitamin B12 652 Blood Type B POSITIVE Antibody Screen Negative Crossmatch See Detail BBK History Checked Patient has bt 05/27/18 05/28/18 22:30 08:19 WBC 3.3 L RBC 2.82 L Hgb 9.0 L Hct 26.3 L MCV 93.3 MCH 31.8 H MCHC 34.1 RDW 20.2 H Plt Count 140 Retic Count 1.5 D Iron TIBC % Saturation Ferritin Vitamin B12 Blood Type Antibody Screen Crossmatch BBK History Checked Assessment & Plan - Assessment and Plan (Free Text) Plan: Patient was personally seen and examined by me in rounds with residents. Available labs and diagnostic data reviewed. Case, Patient's condition and management plan discussed with residents in rounds. Agree with resident's progress note. Plan: As ordered.
[2018-05-27] MEDS: Linezolid 600 mg in D5W 300 ml 600 MG/300 ML BAG IVPB SCH (22:38)
[2018-05-27 23:01] LABS: IRON < 10 ug/dL (49-181); TOTAL IRON BINDING CAPACITY 205 ug/dL (250-450)
[2018-05-27 23:03] LABS: % IRON SATURATION 4.87 % (20-55)
[2018-05-27] MEDS: Docusate-Senna 50 mg-8.6 mg Tab PO SCH (23:39)
[2018-05-27] MEDS: oxyCODONE 5 mg Immediate Release Tab PO PRN (23:40)
[2018-05-28] MEDS: oxyCODONE 5 mg Immediate Release Tab PO PRN ×4 (04:51→21:18)
--- NOTE | 2018-05-28 07:15 | CARD ---
APPROVED REPORT Date of service: 05/27/2018 EKG Measurement Heart [id number] <Conclusion> Sinus rhythm with premature atrial complexes Otherwise normal ECG
[2018-05-28] MEDS: Linezolid 600 mg in D5W 300 ml 600 MG/300 ML BAG IVPB SCH ×2 (08:57→21:20)
[2018-05-28 09:34] LABS: MEAN CELL VOLUME 93.3 fl (80.0-94.0); MEAN CORPUSCULAR HEMOGLOBIN 31.8 pg (27.0-31.0); MEAN CORPUSCULAR HGB CONC 34.1 g/dL (33.0-37.0); RBC 2.82 Mil/uL (4.40-5.90); RED CELL DISTRIBUTION WIDTH 20.2 % (11.5-14.5); WHITE BLOOD COUNT 3.3 K/uL (4.8-10.8)
--- NOTE | 2018-05-28 14:44 | PN ---
DATE: 05/28/2018 SUBJECTIVE: The patient is seen and examined. Interim events noted. The patient remains in the progressive care unit with telemetry monitoring. The patient is not a good historian, sleeping, arousable. Feels okay. Denies any specific complaint. No chest pain. No shortness of breath or any urinary symptoms. The patient is very poor historian and the patient likes to have conversation. PHYSICAL EXAMINATION: GENERAL: The patient is in no acute distress. VITAL SIGNS: Stable. HEART: S1 and S2, normal and regular. LUNGS: Good bilateral air exchange. ABDOMEN: Soft, nontender. No organomegaly. No fluid. Bowel sounds are plus and normal. The patient has no suprapubic tenderness or burning. EXTREMITIES: No edema. No calf swelling. No tenderness. No acute ischemia. TECHNICAL ILLUSTRATOR: Exam is essentially unchanged. DIAGNOSTIC DATA: Available diagnostic data reviewed . ASSESSMENT AND PLAN: Overall, the patient's general medical condition . Vinay Henderson MD
[2018-05-28] MEDS: Docusate-Senna 50 mg-8.6 mg Tab PO SCH (21:20)
[2018-05-29] MEDS: oxyCODONE 5 mg Immediate Release Tab PO PRN ×3 (05:52→21:18)
[2018-05-29] MEDS: Linezolid 600 mg in D5W 300 ml 600 MG/300 ML BAG IVPB SCH ×2 (08:15→21:20)
--- NOTE | 2018-05-29 11:50 | PN ---
DATE: 05/29/2018 SUBJECTIVE: The patient is seen and examined. Interim events noted. The patient remains in regular medical floor with telemetry monitoring. The patient feels okay. The patient is much more awake, responsive, and conversant. Feels okay. Denies any chest pain, shortness of breath, or any abdominal pain. Also denies any urinary symptoms of burning or frequency. PHYSICAL EXAMINATION: GENERAL: The patient is in no acute distress. VITAL SIGNS: Stable. HEART: S1 and S2, normal and regular. LUNGS: Good bilateral air exchange. ABDOMEN: Soft and nontender. No organomegaly. No fluids. Bowel sounds are present and normal. No suprapubic fullness or tenderness. EXTREMITIES: No edema. No calf swelling. No tenderness. No acute ischemia. 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 DIAGNOSTIC DATA: Available diagnostic data reviewed. Telemetry monitoring does not show significant arrhythmia. ASSESSMENT AND PLAN: Overall, the patient's general medical condition is stable. Plan as ordered. Vinay Henderson MD
--- NOTE | 2018-05-29 12:05 | CP.PCM.CON ---
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 presents to ed with his son He was recently seen in ED and culture positive for VRE and called to return for IVABX Physical exam limited due pt pt poor historian Past Patient History - Infectious Disease Hx of Infectious Diseases: None - Past Medical History & Family History Past Medical History?: Yes - Past Social History Smoking Status: Former Smoker Alcohol: None Drugs: Denies Home Situation {Lives}: With Family - CARDIAC Hx Peripheral Edema: Yes (BLE) - PULMONARY Hx Respiratory Disorders: No - NEUROLOGICAL Hx Neurological Disorder: No - HEENT Hx HEENT Problems: No - RENAL Hx Chronic Kidney Disease: No - ENDOCRINE/METABOLIC Hx Diabetes Mellitus Type 2: Yes - HEMATOLOGICAL/ONCOLOGICAL Hx AIDS: No Hx Anemia: Yes Hx Human Immunodeficiency Virus (HIV): No - INTEGUMENTARY Hx Dermatological Problems: No - MUSCULOSKELETAL/RHEUMATOLOGICAL Hx Falls: No - GASTROINTESTINAL Hx Gastrointestinal Disorders: No Other/Comment: TURBT - GENITOURINARY/GYNECOLOGICAL Hx Genitourinary Disorders: Yes 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 Hx cystoscopy - Transurethral resection of bladder tumor 12/06/17. Hx Bilateral Nephrostomy tube excharge 03/30. Right portacath - ANESTHESIA Hx Anesthesia: Yes Hx Anesthesia Reactions: No Hx Malignant Hyperthermia: No Meds Allergies/Adverse Reactions: Allergies Allergy/AdvReac Type Severity Reaction Status Date / Time aspirin Allergy DIZZINESS Verified 05/27/18 12:49 - Medications Medications: Current Medications Linezolid (Zyvox 600mg/300ml D5w) 600 mg in 300 mls @ 300 mls/hr IVPB Q12 MIKE PRN Reason: Protocol Last Admin: 05/29/18 08:15 Dose: 300 mls/hr Oxycodone HCl (Oxycodone Immediate Release Tab) 5 mg PO Q4 PRN PRN Reason: Pain, severe (8-10) Last Admin: 05/29/18 10:20 Dose: 5 mg Senna/Docusate Sodium (Senokot S 50 Mg-8.6 Mg) 1 tab PO HS [facility] Last Admin: 05/28/18 21:20 Dose: 1 tab Tamsulosin HCl (Flomax) 0.4 mg PO HS [facility] Last Admin: 05/28/18 21:20 Dose: 0.4 mg Physical Exam - Exam Additional comments: right and left nephrostomy tubes draining urine and clear Results - Vital Signs Recent Vital Signs: Last Vital Signs Temp 98.3 F 05/29/18 08:37 Pulse 85 05/29/18 09:00 Resp 20 05/29/18 08:37 BP 116/47 L 05/29/18 08:37 Pulse Ox 97 05/29/18 08:37 - Labs Result Diagrams: 05/28/18 08:19 05/27/18 13:55 Assessment & Plan - Assessment and Plan (Free Text) Assessment: Bladder cancer with resistant enterococcus fecium. Agree with Zyvox 600mg iv bid #3/10
--- NOTE | 2018-05-29 14:47 | CP.PCM.CON ---
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 He has been receiving chemotherapy with carboplatin and gemcitabine. He recently completed radiotherapy for pain control. He notes to continued back pain. He continues to have a poor appetite. He denies N/V/D. Past medical history: DM, urothelial cancer Past surgical history: Hernia repair Family history: Denies hematologic and oncologic problems Social history: Former tobacco, denies alcohol, and illicit drug use. Allergies: Aspirin Review of systems: All remaining review of systems including HEENT, cardiovascular, respiratory, gastrointestinal, genitourinary, musculoskeletal, dermatologic, neurologic, and psychiatric are negative unless mentioned in the HPI. Past Patient History - Infectious Disease Hx of Infectious Diseases: None - Past Medical History & Family History Past Medical History?: Yes - Past Social History Smoking Status: Former Smoker Alcohol: None Drugs: Denies Home Situation {Lives}: With Family - CARDIAC Hx Peripheral Edema: Yes (BLE) - PULMONARY Hx Respiratory Disorders: No - NEUROLOGICAL Hx Neurological Disorder: No - HEENT Hx HEENT Problems: No - RENAL Hx Chronic Kidney Disease: No - ENDOCRINE/METABOLIC Hx Diabetes Mellitus Type 2: Yes - HEMATOLOGICAL/ONCOLOGICAL Hx AIDS: No Hx Anemia: Yes Hx Human Immunodeficiency Virus (HIV): No - INTEGUMENTARY Hx Dermatological Problems: No - MUSCULOSKELETAL/RHEUMATOLOGICAL Hx Falls: No - GASTROINTESTINAL Hx Gastrointestinal Disorders: No Other/Comment: TURBT - GENITOURINARY/GYNECOLOGICAL Hx Genitourinary Disorders: Yes 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 Hx cystoscopy - Transurethral resection of bladder tumor 12/06/17. Hx Bilateral Nephrostomy tube excharge 03/30. Right portacath - ANESTHESIA Hx Anesthesia: Yes Hx Anesthesia Reactions: No Hx Malignant Hyperthermia: No Meds Allergies/Adverse Reactions: Allergies Allergy/AdvReac Type Severity Reaction Status Date / Time aspirin Allergy DIZZINESS Verified 05/27/18 12:49 - Medications Medications: Current Medications Linezolid (Zyvox 600mg/300ml D5w) 600 mg in 300 mls @ 300 mls/hr IVPB Q12 MIKE PRN Reason: Protocol Last Admin: 05/29/18 08:15 Dose: 300 mls/hr Oxycodone HCl (Oxycodone Immediate Release Tab) 5 mg PO Q4 PRN PRN Reason: Pain, severe (8-10) Last Admin: 05/29/18 10:20 Dose: 5 mg Senna/Docusate Sodium (Senokot S 50 Mg-8.6 Mg) 1 tab PO [facility] Last Admin: 05/28/18 21:20 Dose: 1 tab Tamsulosin HCl (Flomax) 0.4 mg PO [facility] Last Admin: 05/28/18 21:20 Dose: 0.4 mg Physical Exam - Head Exam Head Exam: ATRAUMATIC - Eye Exam Eye Exam: Normal appearance - ENT Exam ENT Exam: Mucous Membranes Dry - Respiratory Exam Respiratory Exam: NORMAL BREATHING PATTERN - Cardiovascular Exam Cardiovascular Exam: +S1, +S2 - GI/Abdominal Exam GI & Abdominal Exam: Normal Bowel Sounds - Extremities Exam Extremities exam: Positive for: normal inspection - Neurological Exam Neurological exam: Oriented x3 - Psychiatric Exam Psychiatric exam: Normal Affect, Normal Mood - Skin Skin Exam: Warm Results - Vital Signs Recent Vital Signs: Last Vital Signs Temp 97.9 F 05/29/18 13:09 Pulse 84 05/29/18 13:09 Resp 20 05/29/18 13:09 BP 121/58 L 05/29/18 13:09 Pulse Ox 100 05/29/18 13:09 - Labs Result Diagrams: 05/28/18 08:19 05/27/18 13:55 Assessment & Plan (1) Anemia Assessment and Plan: chronic disease from malignancy recent radiation bone marrow metastasis transfusion support PRN Status: Acute (2) Leukopenia Assessment and Plan: no neutropenia secondary to radiation bone mets Status: Acute (3) Bladder cancer Assessment and Plan: LN and bone metastasis s/p palliative radiotherapy outpatient systemic therapy ? nephrostomy tube change while inpatient Thank you for this interesting consult. Status: Chronic Priority: High
[2018-05-29] MEDS: Docusate-Senna 50 mg-8.6 mg Tab PO SCH (21:15)
[2018-05-30 05:28] LABS: HEMOGLOBIN 8.7 g/dL (12.0-18.0); MEAN CELL VOLUME 93.5 fl (80.0-94.0); MEAN CORPUSCULAR HGB CONC 34.2 g/dL (33.0-37.0); RBC 2.71 Mil/uL (4.40-5.90); RED CELL DISTRIBUTION WIDTH 20.3 % (11.5-14.5); WHITE BLOOD COUNT 3.6 K/uL (4.8-10.8)
[2018-05-30 06:05] LABS: ALB/GLOB RATIO 0.9 (1.0-2.1); ALBUMIN 2.8 g/dL (3.5-5.0); CALCIUM 8.4 mg/dL (8.4-10.2)
[2018-05-30] MEDS: oxyCODONE 5 mg Immediate Release Tab PO PRN ×2 (07:54→12:57)
[2018-05-30] MEDS: Linezolid 600 mg in D5W 300 ml 600 MG/300 ML BAG IVPB SCH (08:01)
[2018-05-30 08:48] VITALS: RESP 18
--- NOTE | 2018-05-30 11:17 | CP.PCM.PCO ---
Assessment & Plan - Assessment and Plan (Free Text) Assessment: patient will require 6 more days of Zyvox 600mg q12 as per recommendation urine cx + VRE only sensitive to Zyvox cont. to monitor cbc, bmp
[2018-05-30 16:01] VITALS: BP 120/54; PULSE 83; TEMP 97.9; O2SAT 95
== END 2018-05-30 17:22 | DRG 690 ==
LOC: H.ER 12:40 → H.ERHOLD 14:41 → H.TEL 16:53
PROVIDERS: ADMIT Internal Medicine; ATTEND Internal Medicine
DX: N39.0 Urinary tract infection, site not specified (principal); C77.9 Secondary and unspecified malignant neoplasm of lymph node, unspecified; C79.51 Secondary malignant neoplasm of bone; C79.52 Secondary malignant neoplasm of bone marrow; B95.2 Enterococcus as the cause of diseases classified elsewhere; Z16.22 Resistance to vancomycin related antibiotics; C67.9 Malignant neoplasm of bladder, unspecified; N40.0 Benign prostatic hyperplasia without lower urinary tract symptoms; F32.9 Major depressive disorder, single episode, unspecified; G89.29 Other chronic pain; Z87.891 Personal history of nicotine dependence; D63.0 Anemia in neoplastic disease; Y84.2 Radiological procedure and radiotherapy as the cause of abnormal reaction of the patient, or of later complication, without mention of misadventure at the time of the procedure; D72.819 Decreased white blood cell count, unspecified

== ENCOUNTER 2018-05-30 15:30 | Inpatient (IN) | payer MEDICARE ==
[2018-05-30] MEDS ORDERED: oxyCODONE 5 mg Immediate Release Tab PO PRN (18:01)
[2018-05-30] MEDS ORDERED: oxyCODONE 10 mg Immediate Release Tab PO PRN (18:01)
[2018-05-30 19:43] VITALS: RESP 20
--- NOTE | 2018-05-30 20:25 | CP.PCM.PN ---
<Maggi Troncoso Brady - Last Filed: 05/30/18 20:21> Subjective - Date & Time of Evaluation Date of Evaluation: 05/30/18 Time of Evaluation: 19:00 - Subjective Subjective: c/o not able to move bowel Objective - Vital Signs/Intake and Output Vital Signs (last 24 hours): Temp Pulse Resp BP Pulse Ox 98.2 F 82 20 116/54 L 99 05/30/18 19:42 05/30/18 19:42 05/30/18 19:42 05/30/18 19:42 05/30/18 19:42 - Medications Medications: Current Medications Linezolid (Zyvox 600mg/300ml D5w) 600 mg in 300 mls @ 300 mls/hr IVPB Q12 MIKE Oxycodone HCl (Oxycodone Immediate Release Tab) 10 mg PO Q6 PRN PRN Reason: Pain, severe (8-10) Oxycodone HCl (Oxycodone Immediate Release Tab) 5 mg PO Q4 PRN PRN Reason: Pain, moderate (4-7) Senna/Docusate Sodium (Senokot S 50 Mg-8.6 Mg) 1 tab PO HS [facility] Tamsulosin HCl (Flomax) 0.4 mg PO HS [facility] - Constitutional Appears: Cachectic, Chronically Ill - Head Exam Head Exam: ATRAUMATIC - Eye Exam Eye Exam: Normal appearance, PERRL - ENT Exam ENT Exam: Mucous Membranes Moist - Neck Exam Neck Exam: Full ROM, Normal Inspection - Respiratory Exam Respiratory Exam: Clear to Ausculation Bilateral - Cardiovascular Exam Cardiovascular Exam: REGULAR RHYTHM - GI/Abdominal Exam GI & Abdominal Exam: Soft, Normal Bowel Sounds - Extremities Exam Extremities Exam: Full ROM, Normal Inspection - Neurological Exam Neurological Exam: Alert, Awake, Oriented x3 - Skin Skin Exam: Dry, Normal Color Assessment and Plan - Assessment and Plan (Free Text) Assessment: 78 year old male with a history of DM, 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 He has been receiving chemotherapy with carboplatin and gemcitabine. He recently completed radiotherapy for pain control. He is now in TCU, continue current pain management and rehab <Vinay Henderson - Last Filed: 05/31/18 10:53> Objective - Vital Signs/Intake and Output Vital Signs (last 24 hours): Temp Pulse Resp BP Pulse Ox 98.2 F 88 20 133/59 L 98 05/31/18 09:06 05/31/18 09:06 05/31/18 09:06 05/31/18 09:06 05/31/18 09:06 - Medications Medications: Current Medications Linezolid (Zyvox) 600 mg PO Q12 MIKE PRN Reason: Protocol Oxycodone HCl (Oxycodone Immediate Release Tab) 10 mg PO Q6 PRN PRN Reason: Pain, severe (8-10) Last Admin: 05/31/18 09:33 Dose: 10 mg Oxycodone HCl (Oxycodone Immediate Release Tab) 5 mg PO Q4 PRN PRN Reason: Pain, moderate (4-7) Last Admin: 05/31/18 03:02 Dose: 5 mg Senna/Docusate Sodium (Senokot S 50 Mg-8.6 Mg) 1 tab PO HS [facility] Last Admin: 05/30/18 21:13 Dose: 1 tab Tamsulosin HCl (Flomax) 0.4 mg PO HS [facility] Last Admin: 05/30/18 21:12 Dose: 0.4 mg Assessment and Plan - Assessment and Plan (Free Text) Assessment: Patient was personally seen and examined by me in rounds with residents. Available labs and diagnostic data reviewed. Case, Patient's condition and management plan discussed with residents in rounds. Agree with resident's progress note. Plan: As ordered.
[2018-05-30] MEDS: Docusate-Senna 50 mg-8.6 mg Tab PO SCH (21:13)
[2018-05-30] MEDS: Linezolid 600 mg in D5W 300 ml 600 MG/300 ML BAG IVPB SCH (21:14)
[2018-05-30] MEDS: oxyCODONE 5 mg Immediate Release Tab PO PRN (21:54)
[2018-05-31] MEDS: oxyCODONE 5 mg Immediate Release Tab PO PRN ×2 (03:02→21:39)
[2018-05-31] MEDS ORDERED: LINEZOLID IV SCH (09:00)
[2018-05-31] MEDS ORDERED: NS IV SCH (09:00)
[2018-05-31] MEDS: oxyCODONE 10 mg Immediate Release Tab PO PRN (09:33)
--- NOTE | 2018-05-31 14:19 | CP.PCM.PN ---
Subjective - Date & Time of Evaluation Date of Evaluation: 05/31/18 Time of Evaluation: 07:10 - Subjective Subjective: No acute overnight events. Participated in physical therapy this morning. Reports mild cramping abdominal pain and feels constipated. No BM in the last few days. Stool softener started yesterday. Also complains of feeling down. Sons at bedside state his behavior is slow and appears sad. Poor appetite. Denies dysuria, N/V. Objective - Vital Signs/Intake and Output Vital Signs (last 24 hours): Temp Pulse Resp BP Pulse Ox 98.2 F 88 20 133/59 L 98 05/31/18 09:06 05/31/18 09:06 05/31/18 09:06 05/31/18 09:06 05/31/18 09:06 - Medications Medications: Current Medications Linezolid (Zyvox) 600 mg PO Q12 MIKE PRN Reason: Protocol Last Admin: 05/31/18 11:22 Dose: 600 mg Oxycodone HCl (Oxycodone Immediate Release Tab) 10 mg PO Q6 PRN PRN Reason: Pain, severe (8-10) Last Admin: 05/31/18 09:33 Dose: 10 mg Oxycodone HCl (Oxycodone Immediate Release Tab) 5 mg PO Q4 PRN PRN Reason: Pain, moderate (4-7) Last Admin: 05/31/18 03:02 Dose: 5 mg Senna/Docusate Sodium (Senokot S 50 Mg-8.6 Mg) 1 tab PO [facility] Last Admin: 05/30/18 21:13 Dose: 1 tab Tamsulosin HCl (Flomax) 0.4 mg PO [facility] Last Admin: 05/30/18 21:12 Dose: 0.4 mg - Constitutional Appears: Chronically Ill - Eye Exam Eye Exam: Normal appearance, PERRL - ENT Exam ENT Exam: Mucous Membranes Moist - Neck Exam Neck Exam: Full ROM - Respiratory Exam Respiratory Exam: Clear to Ausculation Bilateral. absent: Rales, Wheezes - Cardiovascular Exam Cardiovascular Exam: REGULAR RHYTHM, +S1, +S2. absent: Murmur - GI/Abdominal Exam GI & Abdominal Exam: Soft, Normal Bowel Sounds. 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 He has been receiving chemotherapy with carboplatin and gemcitabine. He recently completed radiotherapy for pain control. He is now in TCU for physical therapy and receiving antibiotics as per ID's recommendations. -Appears depressed today. Was started on Lexapro 5mg last admission but is not taking now. Denies Suicidal thought. Will restart Lexapro today. -Constipated, will given rectal suppository. -C/W current management. Discussed case with Dr. Henderson. Michele Gerard, PGY2
[2018-05-31] MEDS: Linezolid 600 mg in D5W 300 ml 600 MG/300 ML BAG IVPB SCH (17:16)
[2018-05-31 20:06] VITALS: BP 111/66; PULSE 88; TEMP 98.1; O2SAT 98
[2018-05-31] MEDS: Docusate-Senna 50 mg-8.6 mg Tab PO SCH (21:12)
[2018-06-01] MEDS: oxyCODONE 10 mg Immediate Release Tab PO PRN (06:41)
[2018-06-01 09:11] LABS: BASO % 0.4 % (0.0-2.0); EOS # 0.1 K/uL (0.0-0.7); EOS % 2.1 % (0.0-4.0); HEMOGLOBIN 9.9 g/dL (12.0-18.0); LYMPH # 0.5 K/uL (1.0-4.3); MEAN CELL VOLUME 92.6 fl (80.0-94.0); MEAN CORPUSCULAR HEMOGLOBIN 32.7 pg (27.0-31.0); MEAN CORPUSCULAR HGB CONC 35.3 g/dL (33.0-37.0); MONO # 0.5 K/uL (0.0-0.8); MONO % 8.2 % (0.0-10.0); NEUT # 5.3 K/uL (1.8-7.0); NEUT % 81.3 % (50.0-75.0); NRBC % 0.1 % (0.0-0.0); PLATELET COUNT 196 K/uL (130-400); RBC 3.02 Mil/uL (4.40-5.90); RED CELL DISTRIBUTION WIDTH 20.1 % (11.5-14.5); WHITE BLOOD COUNT 6.6 K/uL (4.8-10.8)
[2018-06-01 09:25] LABS: ALB/GLOB RATIO 0.9 (1.0-2.1); ALBUMIN 3.3 g/dL (3.5-5.0); CALCIUM 8.2 mg/dL (8.4-10.2)
[2018-06-01 10:58] LABS: BANDS 1 % (0-2); EOSINOPHIL 3 % (0-7); LYMPHOCYTE 7 % (20-50); METAMYELOCYTE 1 % (0-0); MONOCYTE 9 % (0-10); NEUTROPHIL 79 % (42-75); PLATELET ESTIMATE NORMAL (NORMAL); TOTAL CELLS COUNTED 100
[2018-06-01 10:59] LABS: ANISOCYTOSIS MODERATE; HYPOCHROMIC SLIGHT; OVALOCYTES SLIGHT; SCHISTOCYTES SLIGHT
[2018-06-01 11:00] LABS: TOXIC GRANULATION PRESENT
--- NOTE | 2018-06-01 11:27 | PN ---
DATE: 06/01/2018 SUBJECTIVE: The patient seen and examined. Interm events noted. The patient remains in transitional care unit. The patient denies any specific complaints. Pain is present, but controlled with current pain management. No chest pain. No shortness of breath. No urinary symptoms. PHYSICAL EXAMINATION: GENERAL: The patient is in no acute distress. VITAL SIGNS: Stable. HEART: S1 and S2. Normal and regular. LUNGS: Good bilateral air exchange. ABDOMEN: Soft and nontender. EXTREMITIES: No edema. No calf swelling. No tenderness. No acute ischemia. GLOBAL MARKETING INTERN: Exam is essentially unchanged. DIAGNOSTIC DATA: Available diagnostic data reviewed. ASSESSMENT AND PLAN: Overall, the patient's general medical condition is stable. Plan as ordered. Vinay Henderson MD
--- NOTE | 2018-06-01 12:02 | CP.PCM.CON ---
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 He has been receiving chemotherapy with carboplatin and gemcitabine. He recently completed radiotherapy for pain control. He notes to continued back pain. He continues to have a poor appetite. I was called to see this patient because of rising BUN/creatinine. Serum creatinine was in the range of 1.1 on May 22 and on May 24 serum creatinine 4.4 Past medical history: DM, urothelial cancer Past surgical history: Hernia repair Family history: Denies hematologic and oncologic problems Social history: Former tobacco, denies alcohol, and illicit drug use. Allergies: Aspirin Review of Systems - Constitutional Constitutional: Anorexia. absent: Chills - Cardiovascular Cardiovascular: absent: Acrocyanosis, Chest Pain at Rest, Edema - Gastrointestinal Gastrointestinal: Abdominal Pain, Dyspepsia. absent: Coffee Ground Emesis - Genitourinary Genitourinary: As Per HPI - Musculoskeletal Musculoskeletal: Back Pain, Limited Range of Motion, Muscle Weakness - Neurological Neurological: absent: Confusion, Focal Weakness - Hematologic/Lymphatic Hematologic: absent: Easy Bleeding Past Patient History - Infectious Disease Hx of Infectious Diseases: None - Past Medical History & Family History Past Medical History?: Yes - Past Social History Smoking Status: Unknown If Ever Smoked - CARDIAC Hx Peripheral Edema: Yes (BLE) - PULMONARY Hx Respiratory Disorders: No - NEUROLOGICAL Hx Neurological Disorder: No - HEENT Hx HEENT Problems: No - RENAL Hx Chronic Kidney Disease: No - ENDOCRINE/METABOLIC Hx Diabetes Mellitus Type 2: Yes - HEMATOLOGICAL/ONCOLOGICAL Hx AIDS: No Hx Anemia: Yes Hx Human Immunodeficiency Virus (HIV): No - INTEGUMENTARY Hx Dermatological Problems: No - MUSCULOSKELETAL/RHEUMATOLOGICAL Hx Falls: No - GASTROINTESTINAL Hx Gastrointestinal Disorders: No Other/Comment: TURBT - GENITOURINARY/GYNECOLOGICAL Hx Genitourinary Disorders: Yes 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 Hx cystoscopy - Transurethral resection of bladder tumor 12/06/17. Hx Bilateral Nephrostomy tube excharge 03/30. Right portacath - ANESTHESIA Hx Anesthesia: Yes Hx Anesthesia Reactions: No Hx Malignant Hyperthermia: No Meds Allergies/Adverse Reactions: Allergies Allergy/AdvReac Type Severity Reaction Status Date / Time aspirin Allergy DIZZINESS Verified 05/30/18 17:51 - Medications Medications: Current Medications Escitalopram Oxalate (Lexapro) 5 mg PO DAILY [facility] Last Admin: 06/01/18 08:47 Dose: 5 mg Linezolid (Zyvox) 600 mg PO Q12 [facility] PRN Reason: Protocol Last Admin: 06/01/18 08:46 Dose: Not Given Oxycodone HCl (Oxycodone Immediate Release Tab) 10 mg PO Q6 PRN PRN Reason: Pain, severe (8-10) Last Admin: 06/01/18 06:41 Dose: 10 mg Oxycodone HCl (Oxycodone Immediate Release Tab) 5 mg PO Q4 PRN PRN Reason: Pain, moderate (4-7) Last Admin: 05/31/18 21:39 Dose: 5 mg Senna/Docusate Sodium (Senokot S 50 Mg-8.6 Mg) 1 tab PO [facility] Last Admin: 05/31/18 21:12 Dose: 1 tab Tamsulosin HCl (Flomax) 0.4 mg PO [facility] Last Admin: 05/31/18 21:12 Dose: 0.4 mg Physical Exam - Constitutional Appears: No Acute Distress - Eye Exam Eye Exam: Conjunctival injection - ENT Exam ENT Exam: Mucous Membranes Dry - Respiratory Exam Respiratory Exam: NORMAL BREATHING PATTERN. absent: Chest Wall Tenderness - Cardiovascular Exam Cardiovascular Exam: absent: Gallop, JVD, Rubs - GI/Abdominal Exam GI & Abdominal Exam: Guarding, Normal Bowel Sounds - Extremities Exam Extremities exam: Negative for: calf tenderness - Back Exam Back exam: absent: CVA tenderness (L), CVA tenderness (R) - Neurological Exam Neurological exam: Alert - Psychiatric Exam Psychiatric exam: Normal Affect Results - Vital Signs Recent Vital Signs: Last Vital Signs Temp 98.1 F 05/31/18 20:06 Pulse 88 05/31/18 20:06 Resp 20 05/31/18 20:06 BP 111/66 05/31/18 20:06 Pulse Ox 98 05/31/18 20:06 - Labs Result Diagrams: 06/01/18 09:01 06/01/18 09:01 Labs: Laboratory Results - last 24 hr 06/01/18 06/01/18 09:01 09:01 WBC 6.6 D RBC 3.02 L Hgb 9.9 L Hct 28.0 L MCV 92.6 MCH 32.7 H MCHC 35.3 RDW 20.1 H Plt Count 196 MPV 6.0 L Neut % (Auto) 81.3 H Lymph % (Auto) 8.0 L Buchanan % (Auto) 8.2 Eos % (Auto) 2.1 Baso % (Auto) 0.4 Neut # (Auto) 5.3 Lymph # (Auto) 0.5 L Buchanan # (Auto) 0.5 Eos # (Auto) 0.1 Baso # (Auto) 0.0 Neutrophils % (Manual) 79 H Band Neutrophils % 1 Lymphocytes % (Manual) 7 L Monocytes % (Manual) 9 Eosinophils % (Manual) 3 Metamyelocytes % 1 H Toxic Granulation Present Platelet Estimate Normal Hypochromasia (manual) Slight Anisocytosis (manual) Moderate Ovalocytes Slight Schistocytes Slight Sodium 137 Potassium 4.1 Chloride 104 Carbon Dioxide 19 L Anion Gap 18 BUN 61 H Creatinine 5.2 H Est GFR ( Amer) 13 Est GFR (Non-Af Amer) 11 Random Glucose 155 H Calcium 8.2 L Phosphorus 3.8 Magnesium 1.9 Total Bilirubin 0.6 AST 31 ALT 36 Alkaline Phosphatase 1208 H Total Protein 7.0 Albumin 3.3 L Globulin 3.7 Albumin/Globulin Ratio 0.9 L Assessment & Plan (1) LINO (acute kidney injury) Assessment and Plan: most likely acute kidney injury. Serum creatinine on May 22 1.1 and on May 27 serum creatinine 4.4 and keep going up slowly. Patient did have CT scan with IV contrast on or around May 22 and patient has been receiving antibiotics for the most part of Zyvox. Patient has bilateral nephrostomy and the right one has been draining but the left one has been draining very poorly worsening of the kidney function most likely related to perhaps the following: Nonfunctioning well nephrostomy therefore I discussed with the resident to send the patient for IR to to check nephrostomy tube and reposition if needed I added intravenous fluid D5 half-normal saline Check serum phosphorus and PTH and check urine for sodium osmolality and creatinine bladder cancer Status: Acute (2) Abdominal pain Status: Acute (3) Diabetes 1.5, managed as type 2 Status: Acute
[2018-06-01] MEDS ORDERED: Dextrose 5%/0.45% NS 1,000 ML IV SCH (12:15)
--- NOTE | 2018-06-01 12:15 | CP.PCM.PCO ---
Physician Communication Note - Physician Communication Note Physician Communication Note: Pt has LINO, needs workup and treatment. Will discharge pt to ED for readmis Assessment/Plan - Assessment and Plan (Free Text) Assessment: Pt has LINO, Crea 5.2, with mental status changes (confused) needs workup and treatment. Will discharge pt to ED for readmission. Pt endorsed to ED Attending skin lap bonder, Dr. Mortensen. Case discussed with Dr. Henderson. Michele Gerard, PGY2
[2018-06-01 15:44] LABS: SQUAMOUS EPITHIAL < 1 /hpf (0-5); URINE BACTERIA RARE (<OCC); URINE BILIRUBIN NEGATIVE (NEGATIVE); URINE BLOOD SMALL (NEGATIVE); URINE CLARITY TURBID (Clear); URINE COLOR YELLOW (YELLOW); URINE GLUCOSE (UA) NEG (Normal); URINE HYALINE CAST 0-2 /hpf (0-2); URINE LEUKOCYTE ESTERASE LARGE Leu/uL (Negative); URINE PROTEIN 100 mg/dL (NEGATIVE); URINE UROBILINOGEN 0.2-1.0 mg/dL (0.2-1.0)
== END 2018-06-01 12:39 | disposition short-term general hospital (02) | DRG 945 ==
LOC: H.TCU 17:54
PROVIDERS: ADMIT Internal Medicine; ATTEND Internal Medicine
PROC: F07Z9FZ Gait Training/Functional Ambulation Treatment using Assistive, Adaptive, Supportive or Protective Equipment (ICD-10-PCS; principal; 2018-05-30)
PROC: F08Z4FZ Home Management Treatment using Assistive, Adaptive, Supportive or Protective Equipment (ICD-10-PCS; 2018-05-30)
PROC: F07M6FZ Therapeutic Exercise Treatment of Musculoskeletal System - Whole Body using Assistive, Adaptive, Supportive or Protective Equipment (ICD-10-PCS; 2018-05-30)
DX: G89.3 Neoplasm related pain (acute) (chronic) (principal); C79.51 Secondary malignant neoplasm of bone; C77.9 Secondary and unspecified malignant neoplasm of lymph node, unspecified; N17.9 Acute kidney failure, unspecified; E11.9 Type 2 diabetes mellitus without complications; K59.00 Constipation, unspecified; Z85.51 Personal history of malignant neoplasm of bladder; Z92.3 Personal history of irradiation; Z92.21 Personal history of antineoplastic chemotherapy; Z87.440 Personal history of urinary (tract) infections; Z87.891 Personal history of nicotine dependence; Z88.6 Allergy status to analgesic agent

== ENCOUNTER 2018-06-01 12:53 | Inpatient (IN) | payer MEDICARE ==
--- NOTE | 2018-06-01 16:16 | RAD ---
Date of service: 06/01/2018 HISTORY: ARF COMPARISON: 05/27/2018 FINDINGS: The right MediPort terminates at the cavoatrial junction. LUNGS: There is moderate pulmonary venous congestion and patchy airspace disease in the right lower lobe and left mid lung. PLEURA: No significant pleural effusion identified, no pneumothorax apparent. CARDIOVASCULAR: Normal. 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 VISUALIZED UPPER ABDOMEN: Normal. OTHER FINDINGS: Right nephrostomy tube. IMPRESSION: Moderate pulmonary venous congestion. Patchy airspace disease in the right lower lobe and left mid lung may represent subsegmental atelectasis however superimposed pneumonia cannot be excluded.
--- NOTE | 2018-06-01 16:42 | ED PDOC ---
HPI: General Adult Time Seen by Provider: 06/01/18 13:09 Chief Complaint (Nursing): Abnormal Labs Chief Complaint (Provider): Abnormal Labs History Per: Patient History/Exam Limitations: no limitations Onset/Duration Of Symptoms: Days Current Symptoms Are (Timing): Still Present Additional Complaint(s): 78 year old male with PMHx of diabetes, stage IV urothelial bladder cancer and obstructive uropathy was transferred from [facility] to [facility] ER due to abnormal labs. Patient reports of acute worsening renal failure. He states he has not had bowel movement in the last few days and has poor appetite. Denies dysuria, nausea or vomiting. PMD: Murray Dewey Past Medical History Reviewed: Historical Data, Nursing Documentation, Vital Signs Vital Signs: Last Vital Signs Temp 98 F 06/01/18 19:50 Pulse 81 06/01/18 19:50 Resp 18 06/01/18 19:50 BP 121/55 L 06/01/18 19:50 Pulse Ox 96 06/01/18 19:50 - Medical History PMH: Anemia, Benign Prostatic Hyperplasia, Depression, Diabetes, Peripheral Edema (BLE), Chronic Pain (Back ) Denies: HIV, Chronic Kidney Disease - Surgical History Surgical History: Hernia Repair - Family History Family History: States: Unknown Family Hx - Social History Current smoker - smoking cessation education provided: No (Former Smoker) Alcohol: None Drugs: Denies - Home Medications Home Medications: Ambulatory Orders Medication Instructions Recorded Tamsulosin [Flomax] 0.4 mg PO HS 02/12/18 oxyCODONE [oxyCODONE Immediate 1 tab PO PRN PRN 04/17/18 Release Tab] Docusate Sodium/Sennosides A 1 tab PO HS tab 04/21/18 [Senokot S 50 MG-8.6 MG] Linezolid 600 mg in NS 300 ml 600 mg IV BID #12 iv.soln 05/30/18 [Zyvox 600mg/300ml NS] oxyCODONE [oxyCODONE Immediate 5 mg PO Q4 PRN tab 05/30/18 Release Tab] - Allergies Allergies/Adverse Reactions: Allergies Allergy/AdvReac Type Severity Reaction Status Date / Time aspirin Allergy DIZZINESS Verified 05/30/18 17:51 Review of Systems ROS Statement: Except As Marked, All Systems Reviewed And Found Negative Gastrointestinal: Positive for: Other (renal failure). Negative for: Nausea, Vomiting Genitourinary Male: Negative for: Dysuria Physical Exam - Reviewed Nursing Documentation Reviewed: Yes Vital Signs Reviewed: Yes - Physical Exam Appears: Positive for: Non-toxic (mildly dehydrated), No Acute Distress ( elderly appearing) Head Exam: Positive for: ATRAUMATIC, NORMAL INSPECTION, NORMOCEPHALIC Skin: Positive for: Normal Color, Warm, Dry. Negative for: Rash Eye Exam: Positive for: Normal appearance, EOMI, PERRL ENT: Positive for: Normal ENT Inspection Neck: Positive for: Normal, Painless ROM, Supple. Negative for: Decreased ROM Cardiovascular/Chest: Positive for: Regular Rate, Rhythm. Negative for: Murmur Respiratory: Positive for: Normal Breath Sounds. Negative for: Decreased Breath Sounds, Wheezing, Respiratory Distress Gastrointestinal/Abdominal: Positive for: Normal Exam, Soft. Negative for: Tenderness, Guarding, Rebound Back: Negative for: Normal Inspection (nephrostomy tubes on bilateral flanks, left tube draining scant urine and right tube draining ample dark urine) Extremity: Positive for: Normal ROM. Negative for: Tenderness, Pedal Edema, Deformity Neurologic/Psych: Positive for: Alert, Oriented (x2) - ECG O2 Sat by Pulse Oximetry: 98 (RA) Pulse Ox Interpretation: Normal Medical Decision Making Medical Decision Making: Time: 1310 Initial Plan: --EKG --Chest Portable [RAD] --Reevaluation Time: 1615 Chest Portable [RAD] HISTORY: ARF COMPARISON: 05/27/2018 FINDINGS: The right MediPort terminates at the cavoatrial junction. LUNGS: There is moderate pulmonary venous congestion and patchy airspace disease in the right lower lobe and left mid lung. PLEURA: No significant pleural effusion identified, no pneumothorax apparent. CARDIOVASCULAR: Normal. 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 VISUALIZED UPPER ABDOMEN: Normal. OTHER FINDINGS: Right nephrostomy tube. IMPRESSION: Moderate pulmonary venous congestion. Patchy airspace disease in the right lower lobe and left mid lung may represent subsegmental atelectasis however superimposed pneumonia cannot be excluded. labs from TCU this morning reviewed Time: 1340 Patient admitted for acute renal failure Admitting team to followup w IR for attention to potentially clogged nephrostomy tube Neophrology prior consulted on TCU floor patient on antibiotics for UTI prior pharmacist noted to stop SSRI given potential for serotonin syndrome and zyvox Scribe Attestation: Documented by Hung Sidhu, acting as a scribe for Sandor Mortensen III, DO Provider Scribe Attestation: All medical record entries made by the Scribe were at my direction and personally dictated by me. I have reviewed the chart and agree that the record accurately reflects my personal performance of the history, physical exam, medical decision making, and the department course for this patient. I have also personally directed, reviewed, and agree with the discharge instructions and disposition. Disposition - Clinical Impression Clinical Impression: Obstructive uropathy, Complication of nephrostomy, Acute kidney failure - Patient ED Disposition Is Patient to be Admitted: Yes Counseled Patient/Family Regarding: Studies Performed, Diagnosis - Disposition Disposition Time: 13:40 Condition: FAIR - Pt Status Changed To: Hospital Disposition Of: Inpatient - Admit Certification Admit to Inpatient:: After my assessment, the patient will require hospitalization for at least two midnights. This is because of the severity of symptoms shown, intensity of services needed, and/or the medical risk in this patient being treated as an outpatient. - POA Present On Arrival: Cath Associated UTI
[2018-06-01] MEDS: oxyCODONE 5 mg Immediate Release Tab PO PRN ×2 (16:52→21:26)
[2018-06-01] MEDS: Docusate-Senna 50 mg-8.6 mg Tab PO SCH (21:26)
--- NOTE | 2018-06-01 22:44 | CARD ---
APPROVED REPORT Date of service: 06/01/2018 EKG Measurement Heart [id number] <Conclusion> Normal sinus rhythm Normal ECG
[2018-06-02] MEDS: oxyCODONE 5 mg Immediate Release Tab PO PRN ×2 (05:43→22:46)
[2018-06-02 05:59] LABS: BASO % 0.6 % (0.0-2.0); EOS # 0.1 K/uL (0.0-0.7); EOS % 1.8 % (0.0-4.0); HEMOGLOBIN 8.8 g/dL (12.0-18.0); LYMPH # 0.5 K/uL (1.0-4.3); LYMPH % 9.3 % (20.0-40.0); MEAN CELL VOLUME 93.2 fl (80.0-94.0); MEAN CORPUSCULAR HEMOGLOBIN 32.1 pg (27.0-31.0); MEAN CORPUSCULAR HGB CONC 34.4 g/dL (33.0-37.0); MONO # 0.4 K/uL (0.0-0.8); NEUT # 4.2 K/uL (1.8-7.0); NEUT % 80.3 % (50.0-75.0); RBC 2.75 Mil/uL (4.40-5.90); WHITE BLOOD COUNT 5.2 K/uL (4.8-10.8)
[2018-06-02 06:46] LABS: ALB/GLOB RATIO 0.9 (1.0-2.1); ALBUMIN 2.9 g/dL (3.5-5.0); CALCIUM 8.2 mg/dL (8.4-10.2)
[2018-06-02 09:31] LABS: INR 1.4; PROTHROMBIN TIME 15.1 Seconds (9.8-13.1)
--- NOTE | 2018-06-02 09:41 | CP.PCM.PN ---
Subjective - Date & Time of Evaluation Date of Evaluation: 06/02/18 Time of Evaluation: 09:33 - Subjective Subjective: urology Pt once romy finds himself on [facility]. He was sent to tcu yesterday fron here and once again readmitted. Urologically he has an invasive nasty bladder cancer which has invaded his ureter and has been maintained with nephrostomy tube drainage. a situation which he has completely rejected. At this point creatinine is risingand the best course of action would be to reconsult IR so tehy can make sure that the tube they placed are patent. Urology chang there is not much that can be done for him to reverse the effects of this tumor. Objective - Vital Signs/Intake and Output Vital Signs (last 24 hours): Temp Pulse Resp BP Pulse Ox 97.7 F 84 18 133/62 96 06/02/18 08:14 06/02/18 08:14 06/02/18 08:14 06/02/18 08:14 06/02/18 08:14 - Medications Medications: Current Medications Linezolid (Zyvox) 600 mg PO Q12 [facility] PRN Reason: Protocol Last Admin: 06/02/18 08:41 Dose: Not Given Oxycodone HCl (Oxycodone Immediate Release Tab) 5 mg PO Q4 PRN PRN Reason: Pain, severe (8-10) Last Admin: 06/02/18 05:43 Dose: 5 mg Senna/Docusate Sodium (Senokot S 50 Mg-8.6 Mg) 1 tab PO HS [facility] Last Admin: 06/01/18 21:26 Dose: 1 tab - Labs Labs: 06/02/18 05:15 06/02/18 04:00 PT 15.1 Seconds (9.8-13.1) H 06/02/18 09:21 INR 1.4 06/02/18 09:21
--- NOTE | 2018-06-02 10:12 | CP.PCM.PN ---
Subjective - Date & Time of Evaluation Date of Evaluation: 06/02/18 Time of Evaluation: 10:12 - Subjective Subjective: patient is awake and conscious Chronically debilitated Objective - Vital Signs/Intake and Output Vital Signs (last 24 hours): Temp Pulse Resp BP Pulse Ox 97.7 F 84 18 133/62 96 06/02/18 08:14 06/02/18 08:14 06/02/18 08:14 06/02/18 08:14 06/02/18 08:14 - Medications Medications: Current Medications Linezolid (Zyvox) 600 mg PO Q12 [facility] PRN Reason: Protocol Last Admin: 06/02/18 08:41 Dose: Not Given Oxycodone HCl (Oxycodone Immediate Release Tab) 5 mg PO Q4 PRN PRN Reason: Pain, severe (8-10) Last Admin: 06/02/18 05:43 Dose: 5 mg Senna/Docusate Sodium (Senokot S 50 Mg-8.6 Mg) 1 tab PO HS [facility] Last Admin: 06/01/18 21:26 Dose: 1 tab - Labs Labs: 06/02/18 05:15 06/02/18 04:00 PT 15.1 Seconds (9.8-13.1) H 06/02/18 09:21 INR 1.4 06/02/18 09:21 APTT 28.9 Seconds (25.6-37.1) 06/02/18 09:48 - Constitutional Appears: No Acute Distress - Eye Exam Eye Exam: Conjunctival injection - ENT Exam ENT Exam: Mucous Membranes Moist - GI/Abdominal Exam GI & Abdominal Exam: Soft, Normal Bowel Sounds - Extremities Exam Extremities Exam: absent: Calf Tenderness - Back Exam Back Exam: absent: CVA tenderness (L), CVA tenderness (R) - Neurological Exam Neurological Exam: Alert - Skin Skin Exam: absent: Cyanosis Assessment and Plan (1) Obstructive uropathy Status: Acute (2) Complication of nephrostomy Status: Chronic (3) LINO (acute kidney injury) Assessment & Plan: acute kidney injury most likely related to obstructive uropathy with malfunction nephrostomy Patient has bilateral nephrostomy invasive Bladder cancer the plan Patient to go to IR to replace nephrostomy and to check on it Suggest to do renal scan to determine which kidney has a best function Status: Acute
--- NOTE | 2018-06-02 12:17 | CP.PCM.CON ---
History of Present Illness - History of Present Illness History of Present Illness: Neurology Consultation Note: Mr. Genao is an 78-year-old man with a past medical history of DM, stage IV urothelial bladder cancer and obstructive uropathy with recent worsening acute on chronic renal failure, who was noted to be more confused. Neurology was consulted to assist with the management and care. Labs showed BUN 58, Cr 4.9, alk phos in 1000's and hemoglobin 8.8. Review of Systems - Review of Systems All systems: reviewed and no additional remarkable complaints except Past Patient History - Infectious Disease Hx of Infectious Diseases: None - Past Medical History & Family History Past Medical History?: Yes - Past Social History Alcohol: None Drugs: Denies - CARDIAC Hx Peripheral Edema: Yes (BLE) - PULMONARY Hx Respiratory Disorders: No - NEUROLOGICAL Hx Neurological Disorder: No - HEENT Hx HEENT Problems: No - RENAL Hx Chronic Kidney Disease: No - ENDOCRINE/METABOLIC Hx Diabetes Mellitus Type 2: Yes - HEMATOLOGICAL/ONCOLOGICAL Hx Anemia: Yes Hx Human Immunodeficiency Virus (HIV): No - INTEGUMENTARY Hx Dermatological Problems: No - MUSCULOSKELETAL/RHEUMATOLOGICAL Hx Falls: Yes - GASTROINTESTINAL Hx Gastrointestinal Disorders: No Other/Comment: TURBT - GENITOURINARY/GYNECOLOGICAL Hx Genitourinary Disorders: Yes - PSYCHIATRIC Hx Depression: Yes - SURGICAL HISTORY Hx Surgeries: Yes Hx Herniorrhaphy: Yes Other/Comment: Hx TURBT with 07/2017. Hx cystoscopy - Transurethral resection of bladder tumor 12/06/17. Hx Bilateral Nephrostomy tube excharge 03/30. Right portacath - ANESTHESIA Hx Anesthesia: Yes Hx Anesthesia Reactions: No Hx Malignant Hyperthermia: No Meds Allergies/Adverse Reactions: Allergies Allergy/AdvReac Type Severity Reaction Status Date / Time aspirin Allergy DIZZINESS Verified 05/30/18 17:51 - Medications Medications: Current Medications Linezolid (Zyvox) 600 mg PO Q12 [facility] PRN Reason: Protocol Last Admin: 06/02/18 08:41 Dose: Not Given Oxycodone HCl (Oxycodone Immediate Release Tab) 5 mg PO Q4 PRN PRN Reason: Pain, severe (8-10) Last Admin: 06/02/18 05:43 Dose: 5 mg Senna/Docusate Sodium (Senokot S 50 Mg-8.6 Mg) 1 tab PO HS [facility] Last Admin: 06/01/18 21:26 Dose: 1 tab Physical Exam - Neurological Exam Neurological exam: Alert, CN II-XII Intact, Normal Gait, Reflexes Normal Additional comments: Confused about date and place, but oriented to person and situation. Results - Vital Signs Recent Vital Signs: Last Vital Signs Temp 97.7 F 06/02/18 08:14 Pulse 84 06/02/18 08:14 Resp 18 06/02/18 08:14 BP 133/62 06/02/18 08:14 Pulse Ox 96 06/02/18 08:14 - Labs Result Diagrams: 06/02/18 05:15 06/02/18 04:00 Labs: Laboratory Results - last 24 hr 06/02/18 06/02/18 06/02/18 04:00 05:15 09:21 WBC 5.2 RBC 2.75 L Hgb 8.8 L Hct 25.6 L MCV 93.2 MCH 32.1 H MCHC 34.4 RDW 20.0 H Plt Count 147 MPV 6.0 L Neut % (Auto) 80.3 H Lymph % (Auto) 9.3 L Cottle % (Auto) 8.0 Eos % (Auto) 1.8 Baso % (Auto) 0.6 Neut # (Auto) 4.2 Lymph # (Auto) 0.5 L Cottle # (Auto) 0.4 Eos # (Auto) 0.1 Baso # (Auto) 0.0 PT 15.1 H INR 1.4 APTT Sodium 136 Potassium 4.5 Chloride 107 Carbon Dioxide 20 L Anion Gap 14 BUN 58 H Creatinine 4.9 H Est GFR ( Amer) 14 Est GFR (Non-Af Amer) 11 Random Glucose 99 Calcium 8.2 L Phosphorus 3.8 Magnesium 1.9 Total Bilirubin 0.5 AST 37 ALT 43 Alkaline Phosphatase 1013 H Total Protein 6.3 Albumin 2.9 L Globulin 3.3 Albumin/Globulin Ratio 0.9 L 06/02/18 09:48 WBC RBC Hgb Hct MCV MCH MCHC RDW Plt Count MPV Neut % (Auto) Lymph % (Auto) Cottle % (Auto) Eos % (Auto) Baso % (Auto) Neut # (Auto) Lymph # (Auto) Cottle # (Auto) Eos # (Auto) Baso # (Auto) PT INR APTT 28.9 Sodium Potassium Chloride Carbon Dioxide Anion Gap BUN Creatinine Est GFR ( Amer) Est GFR (Non-Af Amer) Random Glucose Calcium Phosphorus Magnesium Total Bilirubin AST ALT Alkaline Phosphatase Total Protein Albumin Globulin Albumin/Globulin Ratio Assessment & Plan (1) Toxic metabolic encephalopathy Assessment and Plan: Likely due to uremia and renal failure as well as other electrolyte and cbc abnormalities. Non-contrast CT scan of the head may be obtain to rule out any metastatic disease or underlying pathology. Exam is non-focal. Than you. Status: Acute
--- NOTE | 2018-06-02 13:57 | US ---
Date of service: 06/02/2018 PROCEDURE: Ultrasound of the Kidneys HISTORY: LINO, hx of nephrostomy, r/u hydronephrosis COMPARISON: None available. TECHNIQUE: Sonogram of the kidneys. FINDINGS: RIGHT KIDNEY: Measures: 10.0 cm. Normal cortical thickness and echogenicity No stone, solid mass lesion or hydronephrosis visualized. LEFT KIDNEY: Measures: 13.2 cm. Normal in size, contour and echogenicity. Mild hydronephrosis. Lower pole cortical cyst, 1.2 x 1.3 x 1.4 cm. Percutaneous nephrostomy tube noted. OTHER FINDINGS: Incidentally noted cholelithiasis with gallbladder sludge but no mural thickening. IMPRESSION: Left nephrostomy. Mild left hydronephrosis. Left lower pole cortical cyst. Cholelithiasis and gallbladder sludge.
--- NOTE | 2018-06-02 14:51 | CP.PCM.PCO ---
Assessment/Plan - Assessment and Plan (Free Text) Assessment: Patient seen and examined. Discussed with Dr Torres, Interventional Radiologist, nephrostomy tubes flushed with 5ml NS. Patient's nephrostomy tube reevaluated 1 hour later, draining dark smita urine. Will cont to monitor strict i &o's from nephrostomy tubes.
--- NOTE | 2018-06-02 15:26 | CP.PCM.HP ---
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 I know this patient well in TCU and he is often forgetful and occasionally confused about his surroundings. Exam limited as he is a poor historian. As per his sons, he does not have a history of forgetfulness or disorientation in the past but since his latest UTI, this is been a frequent occurrence. Labs reviewed. Urologist: Dr. Dewey Nehrologist: Dr. Wesley Oncologist: Dr. Daniella Dewey fmhx: breast cancer soc: denies smoking, alcohol, illicit drugs lives with son surg: nephrostomy tubes with urine drain x 2 allergy to aspirin Present on Admission - Present on Admission Any Indicators Present on Admission: No Urinary Catheter: Yes (BL Neprhostomy tubes) Review of Systems - Review of Systems Systems not reviewed;Unavailable: Altered Mental Status - Cardiovascular Cardiovascular: absent: Chest Pain - Respiratory Respiratory: absent: Cough, Dyspnea on Exertion - Gastrointestinal Gastrointestinal: absent: Diarrhea - Genitourinary Genitourinary: absent: Dysuria, Urinary Incontinence Past Patient History - Infectious Disease Hx of Infectious Diseases: None - Past Medical History & Family History Past Medical History?: Yes - Past Social History Alcohol: None Drugs: Denies - CARDIAC Hx Peripheral Edema: Yes (BLE) - PULMONARY Hx Respiratory Disorders: No - NEUROLOGICAL Hx Neurological Disorder: No - HEENT Hx HEENT Problems: No - RENAL Hx Chronic Kidney Disease: No - ENDOCRINE/METABOLIC Hx Diabetes Mellitus Type 2: Yes - HEMATOLOGICAL/ONCOLOGICAL Hx Anemia: Yes Hx Human Immunodeficiency Virus (HIV): No - INTEGUMENTARY Hx Dermatological Problems: No - MUSCULOSKELETAL/RHEUMATOLOGICAL Hx Falls: Yes - GASTROINTESTINAL Hx Gastrointestinal Disorders: No Other/Comment: TURBT - GENITOURINARY/GYNECOLOGICAL Hx Genitourinary Disorders: Yes - PSYCHIATRIC Hx Depression: Yes - SURGICAL HISTORY Hx Surgeries: Yes Hx Herniorrhaphy: Yes Other/Comment: Hx TURBT with 07/2017. Hx cystoscopy - Transurethral resection of bladder tumor 12/06/17. Hx Bilateral Nephrostomy tube excharge 03/30. Right portacath - ANESTHESIA Hx Anesthesia: Yes Hx Anesthesia Reactions: No Hx Malignant Hyperthermia: No Meds Allergies/Adverse Reactions: Allergies Allergy/AdvReac Type Severity Reaction Status Date / Time aspirin Allergy DIZZINESS Verified 05/30/18 17:51 Physical Exam - Constitutional Appears: Non-toxic, No Acute Distress - Head Exam Head Exam: NORMAL INSPECTION - Eye Exam Eye Exam: Normal appearance - ENT Exam ENT Exam: Mucous Membranes Moist - Neck Exam Neck exam: Positive for: Full Rom - Respiratory Exam Respiratory Exam: Clear to Auscultation Bilateral - Cardiovascular Exam Cardiovascular Exam: REGULAR RHYTHM - GI/Abdominal Exam GI & Abdominal Exam: Normal Bowel Sounds, Soft. absent: Tenderness Additional comments: BL Nephrostomy tubes in place. Left tube with minimal drainage. Results - Vital Signs Recent Vital Signs: Last Vital Signs Temp 97.7 F 06/02/18 08:14 Pulse 84 06/02/18 08:14 Resp 18 06/02/18 08:14 BP 133/62 06/02/18 08:14 Pulse Ox 96 06/02/18 08:14 - Labs Result Diagrams: 06/02/18 05:15 06/02/18 04:00 Labs: Laboratory Results - last 24 hr 06/02/18 06/02/18 06/02/18 04:00 05:15 09:21 WBC 5.2 RBC 2.75 L Hgb 8.8 L Hct 25.6 L MCV 93.2 MCH 32.1 H MCHC 34.4 RDW 20.0 H Plt Count 147 MPV 6.0 L Neut % (Auto) 80.3 H Lymph % (Auto) 9.3 L [place] % (Auto) 8.0 Eos % (Auto) 1.8 Baso % (Auto) 0.6 Neut # (Auto) 4.2 Lymph # (Auto) 0.5 L [place] # (Auto) 0.4 Eos # (Auto) 0.1 Baso # (Auto) 0.0 PT 15.1 H INR 1.4 APTT Sodium 136 Potassium 4.5 Chloride 107 Carbon Dioxide 20 L Anion Gap 14 BUN 58 H Creatinine 4.9 H Est GFR ( Amer) 14 Est GFR (Non-Af Amer) 11 Random Glucose 99 Calcium 8.2 L Phosphorus 3.8 Magnesium 1.9 Total Bilirubin 0.5 AST 37 ALT 43 Alkaline Phosphatase 1013 H Total Protein 6.3 Albumin 2.9 L Globulin 3.3 Albumin/Globulin Ratio 0.9 L 06/02/18 09:48 WBC RBC Hgb Hct MCV MCH MCHC RDW Plt Count MPV Neut % (Auto) Lymph % (Auto) [place] % (Auto) Eos % (Auto) Baso % (Auto) Neut # (Auto) Lymph # (Auto) [place] # (Auto) Eos # (Auto) Baso # (Auto) PT INR APTT 28.9 Sodium Potassium Chloride Carbon Dioxide Anion Gap BUN Creatinine Est GFR ( Amer) Est GFR (Non-Af Amer) Random Glucose Calcium Phosphorus Magnesium Total Bilirubin AST ALT Alkaline Phosphatase Total Protein Albumin Globulin Albumin/Globulin Ratio Assessment & Plan (1) Toxic metabolic encephalopathy Status: Acute (2) LINO (acute kidney injury) Status: Acute (3) UTI (urinary tract infection) Status: Acute - Assessment and Plan (Free Text) Assessment: 78 yo M with pmhx of bladder ca with mets to lumbar spine presents to ED sent from TCU due to LINO and intermittent confusion. #LINO, Acute -Labs reviewed: GFR significantly declined to 11. Was 60 on 05/22/18. BUN elevated -I/O over the past week show minimal drainage from Left Neprhostomy tube suggesting obstruction -LINO may be secondary to post obstructive uropathy (dislodged nephrostomy tubes) -IR Consulted: Dr. Torres. Suggested flushing nephrostomy tube with NS and monitor for imrpovement. Renal Scan -Nephrology and Urology on board. Appreciate all recommendations. -Renal US shows mild left hydronephrosis -F/U Urine lytes -Will monitor #Confusion, acute -Poor difficulty concentrating, forgetfulness, and intermittent confusion -Likely secondary to uremic encephalopathy -Neurology recommendations appreciated -Will assess after managing LINO. Frequent neuro checks #UTI, VRE, acute -c/w IV Antibiotics Linezolid as ordered by ID Discussed Case with Dr. Beatriz Gerard, PGY2 <Viany Henderson - Last Filed: 06/04/18 06:01> Results - Vital Signs Recent Vital Signs: Last Vital Signs Temp 97.7 F 06/04/18 00:00 Pulse 88 06/04/18 00:00 Resp 18 06/04/18 00:00 BP 137/57 L 06/04/18 00:00 Pulse Ox 98 06/04/18 00:00 - Labs Result Diagrams: 06/03/18 04:20 06/03/18 04:20 Labs: Laboratory Results - last 24 hr 06/03/18 06/03/18 04:20 04:20 WBC 6.0 RBC 2.87 L Hgb 9.3 L Hct 27.4 L MCV 95.4 H D MCH 32.4 H MCHC 34.0 RDW 19.8 H Plt Count 158 MPV 6.3 L Neut % (Auto) 82.2 H Lymph % (Auto) 7.4 L [place] % (Auto) 8.3 Eos % (Auto) 1.6 Baso % (Auto) 0.5 Neut # (Auto) 5.0 Lymph # (Auto) 0.4 L [place] # (Auto) 0.5 Eos # (Auto) 0.1 Baso # (Auto) 0.0 Sodium 140 Potassium 4.1 Chloride 109 H Carbon Dioxide 23 Anion Gap 12 BUN 52 H Creatinine 3.6 H Est GFR ( Amer) 20 Est GFR (Non-Af Amer) 16 Random Glucose 141 H Calcium 8.3 L Assessment & Plan - Assessment and Plan (Free Text) Assessment: Patient was personally seen and examined by me in rounds with residents. Available labs and diagnostic data reviewed. Case, Patient's condition and management plan discussed with residents in rounds. Agree with resident's progress note. Plan: As ordered.
[2018-06-02] MEDS: Docusate-Senna 50 mg-8.6 mg Tab PO SCH (22:47)
[2018-06-03] MEDS: oxyCODONE 5 mg Immediate Release Tab PO PRN ×4 (03:48→17:39)
[2018-06-03 05:52] LABS: BASO % 0.5 % (0.0-2.0); EOS # 0.1 K/uL (0.0-0.7); EOS % 1.6 % (0.0-4.0); HEMOGLOBIN 9.3 g/dL (12.0-18.0); LYMPH # 0.4 K/uL (1.0-4.3); LYMPH % 7.4 % (20.0-40.0); MEAN CELL VOLUME 95.4 fl (80.0-94.0); MEAN CORPUSCULAR HEMOGLOBIN 32.4 pg (27.0-31.0); MEAN PLATELET VOLUME 6.3 fl (7.2-11.7); MONO # 0.5 K/uL (0.0-0.8); MONO % 8.3 % (0.0-10.0); NEUT % 82.2 % (50.0-75.0); RBC 2.87 Mil/uL (4.40-5.90); RED CELL DISTRIBUTION WIDTH 19.8 % (11.5-14.5)
[2018-06-03 06:02] LABS: CALCIUM 8.3 mg/dL (8.4-10.2)
--- NOTE | 2018-06-03 15:43 | CP.PCM.PN ---
Subjective - Date & Time of Evaluation Date of Evaluation: 06/03/18 Time of Evaluation: 15:43 - Subjective Subjective: stable no nausea eating well Objective - Vital Signs/Intake and Output Vital Signs (last 24 hours): Temp Pulse Resp BP Pulse Ox 98.0 F 81 18 140/64 95 06/03/18 12:39 06/03/18 12:39 06/03/18 12:39 06/03/18 12:39 06/03/18 12:39 Intake and Output: 06/03/18 06/03/18 06:59 18:59 Intake Total 860 Output Total 850 Balance 10 - Medications Medications: Current Medications Bupropion HCl (Wellbutrin) 75 mg PO DAILY MIKE Linezolid (Zyvox) 600 mg PO Q12H MIKE PRN Reason: Protocol Last Admin: 06/03/18 05:33 Dose: 600 mg Oxycodone HCl (Oxycodone Immediate Release Tab) 5 mg PO Q4 PRN PRN Reason: Pain, severe (8-10) Last Admin: 06/03/18 12:53 Dose: 5 mg Oxycodone HCl (Oxycontin Extended Release Tab) 10 mg PO Q12 MIKE Stop: 06/06/18 21:01 Senna/Docusate Sodium (Senokot S 50 Mg-8.6 Mg) 1 tab PO HS [facility] Last Admin: 06/02/18 22:47 Dose: 1 tab - Labs Labs: 06/03/18 04:20 06/03/18 04:20 PT 15.1 Seconds (9.8-13.1) H 06/02/18 09:21 INR 1.4 06/02/18 09:21 APTT 28.9 Seconds (25.6-37.1) 06/02/18 09:48 - Constitutional Appears: No Acute Distress - Eye Exam Eye Exam: Conjunctival injection - ENT Exam ENT Exam: Mucous Membranes Moist - Neck Exam Neck Exam: absent: Lymphadenopathy - Respiratory Exam Respiratory Exam: absent: Chest Wall Tenderness - GI/Abdominal Exam GI & Abdominal Exam: Soft, Normal Bowel Sounds - Extremities Exam Extremities Exam: absent: Calf Tenderness - Back Exam Back Exam: absent: CVA tenderness (L), CVA tenderness (R) - Neurological Exam Neurological Exam: Alert - Psychiatric Exam Psychiatric exam: Normal Affect - Skin Skin Exam: absent: Cyanosis Assessment and Plan (1) Obstructive uropathy Assessment & Plan: acute kidney injury most likely related to obstructive uropathy with malfunction nephrostomy Patient has bilateral nephrostomy invasive Bladder cancer the plan improving kidney function S/P IR flushing nephrostomy tube and function better, creat coming down Status: Acute (2) Complication of nephrostomy Status: Chronic (3) LINO (acute kidney injury) Status: Acute
--- NOTE | 2018-06-03 15:55 | CP.PCM.PN ---
<Michele Gerard - Last Filed: 06/03/18 15:55> Subjective - Date & Time of Evaluation Date of Evaluation: 06/03/18 Time of Evaluation: 08:00 - Subjective Subjective: Pt is on day 9 of Zymox (started on 05/27) for VRE E.Coli growth in UCx. . As per ID, will need 10 days total. Will discontinue antibiotics tomorrow. Objective - Vital Signs/Intake and Output Vital Signs (last 24 hours): Temp Pulse Resp BP Pulse Ox 98.0 F 81 18 140/64 95 06/03/18 12:39 06/03/18 12:39 06/03/18 12:39 06/03/18 12:39 06/03/18 12:39 Intake and Output: 06/03/18 06/03/18 06:59 18:59 Intake Total 860 Output Total 850 Balance 10 - Medications Medications: Current Medications Bupropion HCl (Wellbutrin) 75 mg PO DAILY MIKE Linezolid (Zyvox) 600 mg PO Q12H MIKE PRN Reason: Protocol Last Admin: 06/03/18 05:33 Dose: 600 mg Oxycodone HCl (Oxycodone Immediate Release Tab) 5 mg PO Q4 PRN PRN Reason: Pain, severe (8-10) Last Admin: 06/03/18 12:53 Dose: 5 mg Oxycodone HCl (Oxycontin Extended Release Tab) 10 mg PO Q12 [facility]KE Stop: 06/06/18 21:01 Senna/Docusate Sodium (Senokot S 50 Mg-8.6 Mg) 1 tab PO HS [facility] Last Admin: 06/02/18 22:47 Dose: 1 tab - Labs Labs: 06/03/18 04:20 06/03/18 04:20 PT 15.1 Seconds (9.8-13.1) H 06/02/18 09:21 INR 1.4 06/02/18 09:21 APTT 28.9 Seconds (25.6-37.1) 06/02/18 09:48 Assessment and Plan (1) Toxic metabolic encephalopathy Status: Acute (2) LINO (acute kidney injury) Status: Acute (3) UTI (urinary tract infection) Status: Acute - Assessment and Plan (Free Text) Assessment: 78 yo M with pmhx of bladder ca with mets to lumbar spine presents to ED sent from TCU due to LINO and intermittent confusion. #LINO, improving -Improved after left neprhostomy tube flushed. Crea trending down -F/U am BMP -Nephrology and Urology on board #Confusion, resolved -Pt more alert today. Likely secondary to metabolic encephalopathy #UTI, VRE, acute -Pt is on day 8 of Zymox (started on 05/27) for VRE E.Coli growth in UCx. -As per ID, will need 10 days total. Will discontinue antibiotics tomorrow Discussed Case with Dr. Beatriz Gerard, PGY2 <Vinay Henderson - Last Filed: 06/04/18 06:03> Objective - Vital Signs/Intake and Output Vital Signs (last 24 hours): Temp Pulse Resp BP Pulse Ox 97.7 F 88 18 137/57 L 98 06/04/18 00:00 06/04/18 00:00 06/04/18 00:00 06/04/18 00:00 06/04/18 00:00 Intake and Output: 06/03/18 06/04/18 18:59 06:59 Intake Total 400 Output Total 470 Balance -70 - Medications Medications: Current Medications Bupropion HCl (Wellbutrin) 75 mg PO DAILY [facility] Last Admin: 06/03/18 17:36 Dose: 75 mg Linezolid (Zyvox) 600 mg PO Q12H MIKE PRN Reason: Protocol Last Admin: 06/04/18 05:21 Dose: 600 mg Oxycodone HCl (Oxycodone Immediate Release Tab) 5 mg PO Q4 PRN PRN Reason: Pain, severe (8-10) Last Admin: 06/04/18 05:21 Dose: 5 mg Oxycodone HCl (Oxycontin Extended Release Tab) 10 mg PO Q12 [facility]KE Stop: 06/06/18 21:01 Last Admin: 06/03/18 22:15 Dose: 10 mg Senna/Docusate Sodium (Senokot S 50 Mg-8.6 Mg) 1 tab PO HS [facility] Last Admin: 06/03/18 22:17 Dose: 1 tab - Labs Labs: 06/03/18 04:20 06/03/18 04:20 PT 15.1 Seconds (9.8-13.1) H 06/02/18 09:21 INR 1.4 06/02/18 09:21 APTT 28.9 Seconds (25.6-37.1) 06/02/18 09:48 Assessment and Plan - Assessment and Plan (Free Text) Assessment: Patient was personally seen and examined by me in rounds with residents. Available labs and diagnostic data reviewed. Case, Patient's condition and management plan discussed with residents in rounds. Agree with resident's progress note. Plan: As ordered.
--- NOTE | 2018-06-03 15:58 | CP.PCM.PN ---
Subjective - Date & Time of Evaluation Date of Evaluation: 06/03/18 Time of Evaluation: 15:45 - Subjective Subjective: Patient complains of pain in the lower back, diffuse and constant. He is a poor historian, and I am unable to gather any further information than the above. He is on pain medication at home and thus may have higher tolerance. Oxycontin was just ordered, in addition to the Oxycodone he's been taking at home. Chart reviewed. The AMS seemed to have resolved and the patient is now at baseline. Will monitor his response to Oxycontin. Objective - Vital Signs/Intake and Output Vital Signs (last 24 hours): Temp Pulse Resp BP Pulse Ox 98.0 F 81 18 140/64 95 06/03/18 12:39 06/03/18 12:39 06/03/18 12:39 06/03/18 12:39 06/03/18 12:39 Intake and Output: 06/03/18 06/03/18 06:59 18:59 Intake Total 860 Output Total 850 Balance 10 - Medications Medications: Current Medications Bupropion HCl (Wellbutrin) 75 mg PO DAILY [facility]KE Linezolid (Zyvox) 600 mg PO Q12H [facility]KE PRN Reason: Protocol Last Admin: 06/03/18 05:33 Dose: 600 mg Oxycodone HCl (Oxycodone Immediate Release Tab) 5 mg PO Q4 PRN PRN Reason: Pain, severe (8-10) Last Admin: 06/03/18 12:53 Dose: 5 mg Oxycodone HCl (Oxycontin Extended Release Tab) 10 mg PO Q12 [facility] Stop: 06/06/18 21:01 Senna/Docusate Sodium (Senokot S 50 Mg-8.6 Mg) 1 tab PO HS [facility] Last Admin: 06/02/18 22:47 Dose: 1 tab - Labs Labs: 06/03/18 04:20 06/03/18 04:20 PT 15.1 Seconds (9.8-13.1) H 06/02/18 09:21 INR 1.4 06/02/18 09:21 APTT 28.9 Seconds (25.6-37.1) 06/02/18 09:48 - Back Exam Back Exam: CVA tenderness (L), vertebral tenderness Assessment and Plan - Assessment and Plan (Free Text) Assessment: 78 yo man w/ metastatic CA to the spine. On chronic opioids, though has AMS in the setting of UTI and may or may not have returned to baseline. - f/u neurology recommendation - monitor response to Oxycontin, it's a good idea to start a long acting agent, but have to monitor his mental status as it's harder to titrate - continue Oxycodone 5mg PRN for breakthrough pain for now, may increase to 10mg q4h PRN if necessary - Lidoderm to lower back - withhold neuropathic medications due to possibility of lethargy and AMS
[2018-06-03] MEDS: oxyCODONE 10 mg ER Tab (oxyCONTIN) PO SCH (22:15)
[2018-06-03] MEDS: Docusate-Senna 50 mg-8.6 mg Tab PO SCH (22:17)
[2018-06-04] MEDS: oxyCODONE 5 mg Immediate Release Tab PO PRN ×3 (05:21→16:56)
[2018-06-04 07:17] LABS: ALB/GLOB RATIO 0.9 (1.0-2.1); CALCIUM 8.5 mg/dL (8.4-10.2)
[2018-06-04] MEDS: oxyCODONE 10 mg ER Tab (oxyCONTIN) PO SCH ×2 (08:00→21:00)
--- NOTE | 2018-06-04 09:06 | CP.PCM.PCO ---
Addendum Addendum: 06/04/18 09:03 Called to examine patient after being found sitting in the floor inside room. As per nurse patient was moved back to bed. Patient seems in not acute distress. C/O lower back pain but states that is the same pain he usually has. Patient has hx of chronic lower back pain and has b/l nephrostomy tubes that a t the time of exam seem intact. No bruises, swelling, AMS found on PE. As per nurse, patient is known for "acting out". Will order Xray of lumbar spine stat to r/o Fx.
--- NOTE | 2018-06-04 10:04 | PN ---
DATE: 06/04/2018 SUBJECTIVE: The patient seen and examined. Interim events noted. The patient remains in regular medical floor. Complaints of pain on and off, controlled with medication. No new complaint of chest pain or shortness of breath. The patient is awake and responsive. Feels okay. PHYSICAL EXAMINATION: GENERAL: In no acute distress. VITAL SIGNS: Stable. HEART: S1, S2. Normal and regular. LUNGS: Good bilateral air exchange. ABDOMEN: Soft and nontender. EXTREMITIES: No calf swelling or tenderness noted. 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 DIAGNOSTIC DATA: Available diagnostic data reviewed. ASSESSMENT AND PLAN: Overall, the patient's general medical condition is stable. His intermediate prognosis remains poor due to underlying . Plan as ordered. Vinay Henderson MD
[2018-06-04] MEDS: Docusate-Senna 50 mg-8.6 mg Tab PO SCH (21:11)
[2018-06-05] MEDS: oxyCODONE 5 mg Immediate Release Tab PO PRN ×3 (04:39→18:08)
[2018-06-05] MEDS: oxyCODONE 10 mg ER Tab (oxyCONTIN) PO SCH ×2 (09:07→22:23)
--- NOTE | 2018-06-05 11:35 | PN ---
DATE: 06/05/2018 SUBJECTIVE: The patient seen and examined. Interim events noted. The patient remains in regular medical floor. The patient has complained of pain and pain medication was increased. The patient also had an incident of found on the floor without any significant complaint. The patient is sleeping, pain medication. The patient feels okay. The pain is controlled, but requires medication more frequently than before. No complaint of shortness of breath or chest pain. PHYSICAL EXAMINATION: GENERAL: The patient is in no acute distress. VITAL SIGNS: Stable. HEART: S1 and S2, normal and regular. LUNGS: Good bilateral air exchange. ABDOMEN: Soft and nontender. EXTREMITIES: No edema. No calf swelling. No tenderness. No acute ischemia. 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 DIAGNOSTIC DATA: Available diagnostic data reviewed. ASSESSMENT AND PLAN: Overall, the patient is hemodynamically stable although oil heaterman prognosis remains poor. The patient has not suffered any acute injury from the incident yesterday. Plan as ordered. Vinay Henderson MD
[2018-06-05] MEDS: Docusate-Senna 50 mg-8.6 mg Tab PO SCH (22:34)
[2018-06-06] MEDS: oxyCODONE 5 mg Immediate Release Tab PO PRN (04:58)
--- NOTE | 2018-06-06 08:08 | CP.PCM.PN ---
Subjective - Date & Time of Evaluation Date of Evaluation: 06/06/18 Time of Evaluation: 08:00 - Subjective Subjective: Was called to re-assess patient for pain management. Oxycodone IR was changed to q3h since last evaluation. Patient has since been transferred to , and medically more stable. However, per staff he is still intermittently confused. On exam, he's oriented only to person. He does state that he has severe back pain, across the lower back diffusely, and that the current pain medication isn' t helping. Objective - Vital Signs/Intake and Output Vital Signs (last 24 hours): Temp Pulse Resp BP Pulse Ox 99.9 F H 87 20 128/62 98 06/06/18 00:08 06/06/18 00:08 06/06/18 00:08 06/06/18 00:08 06/06/18 00:08 Intake and Output: 06/06/18 06/06/18 06:59 18:59 Output Total 400 Balance -400 - Medications Medications: Current Medications Bupropion HCl (Wellbutrin) 75 mg PO DAILY [facility] Last Admin: 06/05/18 09:08 Dose: 75 mg Lactulose (Enulose) 20 gm PO DAILY [facility] Linezolid (Zyvox) 600 mg PO Q12H MIKE PRN Reason: Protocol Last Admin: 06/06/18 04:59 Dose: 600 mg Oxycodone HCl (Oxycontin Extended Release Tab) 10 mg PO Q12 [facility] Stop: 06/06/18 21:01 Last Admin: 06/05/18 22:23 Dose: 10 mg Oxycodone HCl (Oxycodone Immediate Release Tab) 10 mg PO Q4 PRN PRN Reason: Pain, severe (8-10) Senna/Docusate Sodium (Senokot S 50 Mg-8.6 Mg) 1 tab PO [facility] Last Admin: 06/05/18 22:34 Dose: 1 tab - Labs Labs: 06/03/18 04:20 06/04/18 05:20 PT 15.1 Seconds (9.8-13.1) H 06/02/18 09:21 INR 1.4 06/02/18 09:21 APTT 28.9 Seconds (25.6-37.1) 06/02/18 09:48 - Back Exam Back Exam: CVA tenderness (R), paraspinal tenderness, vertebral tenderness Assessment and Plan (1) Back pain Assessment & Plan: 78 yo man w/ metastatic CA, likely high opioid tolerance due to chronic use. Patient is elderly, with renal insufficiency, and already confused. However, given his underlying pathology, will attempt to be more aggressive in his pain regimen. It's safer to titrate the short acting agent rather than long acting agent. - continue Oxycontin 10mg q12h - change Oxycodone IR to 10mg q4h PRN Status: Acute
[2018-06-06] MEDS: oxyCODONE 10 mg ER Tab (oxyCONTIN) PO SCH ×2 (08:33→22:15)
--- NOTE | 2018-06-06 08:37 | CP.PCM.PN ---
Subjective - Date & Time of Evaluation Date of Evaluation: 06/06/18 Time of Evaluation: 08:36 - Subjective Subjective: no new events reported overnight No significant changes clinically Objective - Vital Signs/Intake and Output Vital Signs (last 24 hours): Temp Pulse Resp BP Pulse Ox 98.6 F 84 18 126/53 L 98 06/06/18 08:24 06/06/18 08:24 06/06/18 08:24 06/06/18 08:24 06/06/18 08:24 Intake and Output: 06/06/18 06/06/18 06:59 18:59 Output Total 400 Balance -400 - Medications Medications: Current Medications Bupropion HCl (Wellbutrin) 75 mg PO DAILY [facility] Last Admin: 06/06/18 08:33 Dose: 75 mg Lactulose (Enulose) 20 gm PO DAILY [facility] Last Admin: 06/06/18 08:33 Dose: 20 gm Linezolid (Zyvox) 600 mg PO Q12H [facility] PRN Reason: Protocol Last Admin: 06/06/18 04:59 Dose: 600 mg Oxycodone HCl (Oxycontin Extended Release Tab) 10 mg PO Q12 [facility] Stop: 06/06/18 21:01 Last Admin: 06/06/18 08:33 Dose: 10 mg Oxycodone HCl (Oxycodone Immediate Release Tab) 10 mg PO Q4 PRN PRN Reason: Pain, severe (8-10) Senna/Docusate Sodium (Senokot S 50 Mg-8.6 Mg) 1 tab PO HS [facility] Last Admin: 06/05/18 22:34 Dose: 1 tab - Labs Labs: 06/03/18 04:20 06/04/18 05:20 PT 15.1 Seconds (9.8-13.1) H 06/02/18 09:21 INR 1.4 06/02/18 09:21 APTT 28.9 Seconds (25.6-37.1) 06/02/18 09:48 - Constitutional Appears: No Acute Distress - Eye Exam Eye Exam: Conjunctival injection - ENT Exam ENT Exam: Mucous Membranes Moist - Respiratory Exam Respiratory Exam: absent: Chest Wall Tenderness - GI/Abdominal Exam GI & Abdominal Exam: Soft, Normal Bowel Sounds - Extremities Exam Extremities Exam: absent: Calf Tenderness - Back Exam Back Exam: absent: CVA tenderness (L), CVA tenderness (R) - Neurological Exam Neurological Exam: Alert - Psychiatric Exam Psychiatric exam: Normal Affect - Skin Skin Exam: absent: Cyanosis Assessment and Plan (1) Obstructive uropathy Assessment & Plan: acute kidney injury most likely related to obstructive uropathy with malfunction nephrostomy Patient has bilateral nephrostomy invasive Bladder cancer the plan improving kidney function S/P IR flushing nephrostomy tube and function better, repeat BMP and CBC Status: Acute (2) Complication of nephrostomy Status: Chronic (3) LINO (acute kidney injury) Status: Acute
[2018-06-06] MEDS: oxyCODONE 10 mg Immediate Release Tab PO PRN ×2 (10:58→17:49)
[2018-06-06 11:46] LABS: MEAN CELL VOLUME 93.6 fl (80.0-94.0); MEAN CORPUSCULAR HEMOGLOBIN 32.1 pg (27.0-31.0); MEAN CORPUSCULAR HGB CONC 34.2 g/dL (33.0-37.0); RBC 2.81 Mil/uL (4.40-5.90); WHITE BLOOD COUNT 7.8 K/uL (4.8-10.8)
[2018-06-06 11:58] LABS: CALCIUM 8.1 mg/dL (8.4-10.2)
--- NOTE | 2018-06-06 13:07 | PN ---
DATE: 06/06/2018 SUBJECTIVE: The patient seen and examined. Interim events noted. The patient remains in regular medical floor. obtained and transferred the patient. The patient's main medication is helping. No chest pain. No shortness of breath. PHYSICAL EXAMINATION: GENERAL: The patient is in no acute distress. VITAL SIGNS: Stable. HEART: S1 and S2. Normal and regular. LUNGS: Good bilateral air exchange. ABDOMEN: Soft and nontender. EXTREMITIES: No edema. No calf swelling. No tenderness. No acute ischemia. 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 DIAGNOSTIC DATA: Available diagnostic data reviewed. ASSESSMENT AND PLAN: Overall, the patient's general medical condition is stable, although shelter prognosis remains poor. Plan as ordered. Vinay Henderson MD
[2018-06-06] MEDS: Docusate-Senna 50 mg-8.6 mg Tab PO SCH (22:21)
[2018-06-07 06:29] LABS: HEMOGLOBIN 8.5 g/dL (12.0-18.0); MEAN CELL VOLUME 94.4 fl (80.0-94.0); MEAN CORPUSCULAR HEMOGLOBIN 32.6 pg (27.0-31.0); MEAN CORPUSCULAR HGB CONC 34.5 g/dL (33.0-37.0); RBC 2.61 Mil/uL (4.40-5.90); RED CELL DISTRIBUTION WIDTH 19.4 % (11.5-14.5); WHITE BLOOD COUNT 7.2 K/uL (4.8-10.8)
[2018-06-07 06:32] LABS: CALCIUM 8.2 mg/dL (8.4-10.2)
--- NOTE | 2018-06-07 12:04 | PN ---
DATE: 06/07/2018 SUBJECTIVE: The patient seen and examined. Interim events noted. Pain Management consult noted and appreciated. The patient remains in regular medical floor with complaint of chest pain. The patient also had gastrostomy tube complication. The patient was reluctant to undergo procedure. As per prolonged discussion, the patient agreed for the same today. He complains of pain and tolerates medication, but pain is recurrent. No other complaints. PHYSICAL EXAMINATION: GENERAL: The patient is in no acute distress. VITAL SIGNS: Stable. HEART: S1 and S2, normal and regular. LUNGS: Good bilateral air exchange. ABDOMEN: Soft and nontender. EXTREMITIES: No calf swelling. No tenderness. No acute ischemia. 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 DIAGNOSTIC DATA: Available diagnostic data reviewed. Creatinine 4.3. ASSESSMENT AND PLAN: Overall, the patient is hemodynamically stable. perlite grinder prognosis remains poor due to the underlying . Plan as ordered. Vinay Henderson MD
--- NOTE | 2018-06-07 12:21 | CP.PCM.PN ---
Subjective - Date & Time of Evaluation Date of Evaluation: 06/07/18 Time of Evaluation: 07:00 - Subjective Subjective: No overnight events. Seen and examined at the bedside with Dr. Henderson. Reports back pain partially relieved with medication. Encouraged pt to have IR readjustment of nephrostomy tube as it is likely contributing to his chronic back pain and declining kidney function. Pt was agreaable. Objective - Vital Signs/Intake and Output Vital Signs (last 24 hours): Temp Pulse Resp BP Pulse Ox 97.3 F L 92 H 19 136/67 100 06/07/18 08:21 06/07/18 08:21 06/07/18 08:21 06/07/18 08:21 06/07/18 08:21 - Medications Medications: Current Medications Bupropion HCl (Wellbutrin) 75 mg PO DAILY [facility] Last Admin: 06/06/18 08:33 Dose: 75 mg Lactulose (Enulose) 20 gm PO DAILY [facility] Last Admin: 06/06/18 08:33 Dose: 20 gm Linezolid (Zyvox) 600 mg PO Q12H [facility]; Protocol Last Admin: 06/07/18 06:52 Dose: 600 mg Ondansetron HCl (Zofran Inj) 4 mg IVP Q6 PRN PRN Reason: Nausea/Vomiting Oxycodone HCl (Oxycodone Immediate Release Tab) 10 mg PO Q4 PRN PRN Reason: Pain, severe (8-10) Last Admin: 06/06/18 17:49 Dose: 10 mg Senna/Docusate Sodium (Senokot S 50 Mg-8.6 Mg) 1 tab PO HS [facility] Last Admin: 06/06/18 22:21 Dose: 1 tab - Labs Labs: 06/07/18 05:30 06/07/18 05:30 PT 15.1 Seconds (9.8-13.1) H 06/02/18 09:21 INR 1.4 06/02/18 09:21 APTT 28.9 Seconds (25.6-37.1) 06/02/18 09:48 - Constitutional Appears: No Acute Distress - Head Exam Head Exam: NORMAL INSPECTION - Eye Exam Eye Exam: Normal appearance - ENT Exam ENT Exam: Mucous Membranes Moist - Respiratory Exam Respiratory Exam: Clear to Ausculation Bilateral - Cardiovascular Exam Cardiovascular Exam: REGULAR RHYTHM - Extremities Exam Extremities Exam: Normal Inspection - Neurological Exam Neurological Exam: Alert, Awake, Oriented x3 - Psychiatric Exam Psychiatric exam: Depressed - Skin Skin Exam: Normal Color Assessment and Plan (1) Toxic metabolic encephalopathy Status: Acute (2) LINO (acute kidney injury) Status: Acute (3) UTI (urinary tract infection) Status: Acute - Assessment and Plan (Free Text) Assessment: 78 yo M with pmhx of 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 #LINO, acute -Initally improved after flushing L nephrostomy, but drain has become obstructed again causing Crea to trend up -Nephrology and Urology on board -Plan for IR today to relieve obstruction- readjust or replace drain as needed. Dr. Scott #Confusion, resolved -Pt more alert today. Likely secondary to metabolic encephalopathy #UTI, VRE, acute -s/p 10 days of Zymox as per Dr. Brown #Chronic back pain -as per pain management Need discussion with next of kin regarding plan of care, possible hospice. Discussed Case with Dr. Beatriz Gerard, PGY2
[2018-06-07] MEDS ORDERED: Iodixanol 320 MG/ML 100 ML BOTTLE IV ONE (13:27)
[2018-06-07] MEDS ORDERED: Lidocaine 1% 5ml Abboject ONE (13:43)
[2018-06-07] MEDS ORDERED: Midazolam 2 MG/2 ML VIAL ONE (13:45)
[2018-06-07] MEDS ORDERED: Ketamine 50 mg/ml Inj (10 ml) ONE (13:45)
--- NOTE | 2018-06-07 14:11 | PCM.SURG1 ---
Surgeon's Initial Post Op Note - Surgeon's Notes Surgeon: Jus Scott MD Radio Division Officer: NONE Type of Anesthesia: IV Sedation Pre-Operative Diagnosis: Hydronephrosis Operative Findings: RIght and left PNC in place Post-Operative Diagnosis: Hydronephrosis Operation Performed: Bilateral Percutaneous nephrostomy tube change Specimen/Specimens Removed: none Estimated Blood Loss: EBL {In ML}: 1 Blood Products Given: N/A Post-Op Condition: Fair Date of Surgery/Procedure: 06/07/18 Time of Surgery/Procedure: 14:05
[2018-06-07] MEDS ORDERED: Sodium Chloride 0.9% 500 ML IV ONE (14:20)
[2018-06-07] MEDS ORDERED: Sodium Chloride 0.9% 1,000 ML IV SCH (14:30)
--- NOTE | 2018-06-07 15:23 | VASCULAR ---
PROCEDURE: < Date of procedure: 06/07/2018 Procedure: 1. Right and Left nephrostogram, CPT 00864 2. Right and Left percutaneous nephrostomy tube change, CPT 46259. Medications: 2 % Lidocaine, IV sedation by anesthesiologist Fluoroscopy time: 41.2 seconds Radiation: 6.92 mGy HISTORY: Ureteral obstruction, Hydronephrosis, nonfunctional nephrostomy tubes. TECHNIQUE: Following informed consent and procedure time-out, the patient was placed prone on the interventional table an the existing right and left percutaneous nephrostomy tube and surrounding skin were prepped and draped in the usual sterile fashion. Nephrostogram performed through the existing catheter showed moderate hydronephrosis. The left nephrostomy tube was cut and removed over a guide wire. A new 8 [place] nephrostomy tube was advanced over the wire and formed within the renal pelvis. The right nephrostomy tube was cut and removed over a guide wire. A new 8 [place] nephrostomy tube was advanced over the wire and formed within the renal pelvis. Position of the nephrostomy tube was confirmed contrast injection. The tube was secured patient's skin and dressing applied. The tube was then attached to a drainage bag. IMPRESSION: Removal of existing right and left nephrostomy tube and exchange for a new 8 [place] nephrostomy tubes. Nephrostogram performed through the existing catheter showed moderate hydronephrosis.
[2018-06-07 15:37] VITALS: RESP 20
[2018-06-07 16:38] VITALS: BMI 24.1
[2018-06-07] MEDS: oxyCODONE 10 mg Immediate Release Tab PO PRN (18:24)
--- NOTE | 2018-06-07 18:24 | CP.PCM.PN ---
Subjective - Date & Time of Evaluation Date of Evaluation: 06/07/18 Time of Evaluation: 11:00 - Subjective Subjective: no significant changes No chest pain no vomiting Objective - Vital Signs/Intake and Output Vital Signs (last 24 hours): Temp Pulse Resp BP Pulse Ox 98.1 F 89 20 124/66 100 06/07/18 16:18 06/07/18 16:18 06/07/18 16:18 06/07/18 16:18 06/07/18 16:18 Intake and Output: 06/07/18 06/07/18 06:59 18:59 Intake Total 60 Balance 60 - Medications Medications: Current Medications Bupropion HCl (Wellbutrin) 75 mg PO DAILY [facility] Last Admin: 06/07/18 09:00 Dose: Not Given Sodium Chloride (Sodium Chloride 0.9%) 1,000 mls @ 40 mls/hr IV .Q24H [facility] 234 BEDS AT THE [facility] Lactulose (Enulose) 20 gm PO DAILY [facility] 234 BEDS AT [facility] Last Admin: 06/07/18 17:42 Dose: 20 gm Linezolid (Zyvox) 600 mg PO Q12H [facility] 234 BEDS AT [facility]; Protocol Last Admin: 06/07/18 17:41 Dose: 600 mg Ondansetron HCl (Zofran Inj) 4 mg IVP Q6 PRN PRN Reason: Nausea/Vomiting Oxycodone HCl (Oxycodone Immediate Release Tab) 10 mg PO Q4 PRN PRN Reason: Pain, severe (8-10) Last Admin: 06/06/18 17:49 Dose: 10 mg Senna/Docusate Sodium (Senokot S 50 Mg-8.6 Mg) 1 tab PO HS [facility] 234 BEDS AT [facility] Last Admin: 06/06/18 22:21 Dose: 1 tab - Labs Labs: 06/07/18 05:30 06/07/18 05:30 PT 15.1 Seconds (9.8-13.1) H 06/02/18 09:21 INR 1.4 06/02/18 09:21 APTT 28.9 Seconds (25.6-37.1) 06/02/18 09:48 - Constitutional Appears: No Acute Distress - Eye Exam Eye Exam: Conjunctival injection - ENT Exam ENT Exam: Mucous Membranes Moist - Respiratory Exam Respiratory Exam: absent: Chest Wall Tenderness - Cardiovascular Exam Cardiovascular Exam: absent: Gallop, JVD, Rubs - GI/Abdominal Exam GI & Abdominal Exam: Soft, Normal Bowel Sounds - Extremities Exam Extremities Exam: absent: Calf Tenderness - Back Exam Back Exam: absent: CVA tenderness (L), CVA tenderness (R) - Neurological Exam Neurological Exam: Alert - Psychiatric Exam Psychiatric exam: Normal Affect - Skin Skin Exam: absent: Cyanosis Assessment and Plan (1) Obstructive uropathy Assessment & Plan: acute kidney injury related to obstructive uropathy Bilateral hydronephrosis with the status post bilateral nephrostomy Recent reposition of the left nephrostomy and flushing Kidney function not improving despite flushing of the nephrostomy Renal scan has not been done as of yet has been ordered a few days ago to determine the kidney function Patient may need dialysis in the near future if kidney function not improving Status: Acute (2) Complication of nephrostomy Status: Chronic (3) LINO (acute kidney injury) Status: Acute
[2018-06-07] MEDS: Docusate-Senna 50 mg-8.6 mg Tab PO SCH (21:33)
[2018-06-07 23:36] VITALS: O2SAT 98
[2018-06-08] MEDS: oxyCODONE 10 mg Immediate Release Tab PO PRN ×2 (01:18→06:04)
[2018-06-08 07:28] LABS: BASO % 0.4 % (0.0-2.0); EOS # 0.2 K/uL (0.0-0.7); EOS % 1.8 % (0.0-4.0); HEMOGLOBIN 9.4 g/dL (12.0-18.0); LYMPH # 0.7 K/uL (1.0-4.3); LYMPH % 8.3 % (20.0-40.0); MEAN CELL VOLUME 94.4 fl (80.0-94.0); MEAN CORPUSCULAR HEMOGLOBIN 32.7 pg (27.0-31.0); MEAN CORPUSCULAR HGB CONC 34.7 g/dL (33.0-37.0); MEAN PLATELET VOLUME 6.2 fl (7.2-11.7); MONO # 0.4 K/uL (0.0-0.8); MONO % 5.1 % (0.0-10.0); NEUT # 7.2 K/uL (1.8-7.0); NEUT % 84.4 % (50.0-75.0); PLATELET COUNT 137 K/uL (130-400); RBC 2.87 Mil/uL (4.40-5.90); RED CELL DISTRIBUTION WIDTH 19.1 % (11.5-14.5); WHITE BLOOD COUNT 8.5 K/uL (4.8-10.8)
[2018-06-08 07:37] LABS: CALCIUM 8.2 mg/dL (8.4-10.2)
[2018-06-08 08:12] VITALS: TEMP 98.6
[2018-06-08 11:20] LABS: BANDS 2 % (0-2); EOSINOPHIL 2 % (0-7); LYMPHOCYTE 4 % (20-50); MONOCYTE 4 % (0-10); MYELOCYTE 3 % (0-0); NEUTROPHIL 85 % (42-75); PLATELET ESTIMATE NORMAL (NORMAL); TOTAL CELLS COUNTED 100
[2018-06-08 11:21] LABS: ANISOCYTOSIS SLIGHT; HYPOCHROMIC MODERATE; OVALOCYTES SLIGHT; TEARDROP CELLS SLIGHT
[2018-06-08 11:22] LABS: TOXIC GRANULATION PRESENT
--- NOTE | 2018-06-08 13:18 | CP.PCM.PCO ---
Assessment & Plan - Assessment and Plan (Free Text) Assessment: pt. s/p Nephrostomy tube change As per , cont. zyvox 600 mg po bid x 7 more days cont. to monitor cbc, BMP in TCU pt. cleared for d/c to TCU by cont to monitor nephrostomy tube, flush prn
[2018-06-08] MEDS ORDERED: oxyCODONE 5 mg Immediate Release Tab PO PRN (14:15)
[2018-06-08 14:36] VITALS: BP 101/57; PULSE 99
--- NOTE | 2018-06-08 18:01 | CP.PCM.DIS ---
Provider - Provider Date of Admission: 06/01/18 13:40 Attending physician: Vinay Henderson MD Time Spent in preparation of Discharge (in minutes): 35 Diagnosis - Discharge Diagnosis (1) Toxic metabolic encephalopathy Status: Resolved (2) LINO (acute kidney injury) Status: Chronic (3) UTI (urinary tract infection) Status: Resolved Hospital Course - Lab Results Lab Results: Most Recent Lab Values WBC 8.5 K/uL (4.8-10.8) 06/08/18 07:00 RBC 2.87 Mil/uL (4.40-5.90) L 06/08/18 07:00 Hgb 9.4 g/dL (12.0-18.0) L 06/08/18 07:00 Hct 27.1 % (35.0-51.0) L 06/08/18 07:00 MCV 94.4 fl (80.0-94.0) H 06/08/18 07:00 MCH 32.7 pg (27.0-31.0) H 06/08/18 07:00 MCHC 34.7 g/dL (33.0-37.0) 06/08/18 07:00 RDW 19.1 % (11.5-14.5) H 06/08/18 07:00 Plt Count 137 K/uL (130-400) 06/08/18 07:00 MPV 6.2 fl (7.2-11.7) L 06/08/18 07:00 Neut % (Auto) 84.4 % (50.0-75.0) H 06/08/18 07:00 Lymph % (Auto) 8.3 % (20.0-40.0) L 06/08/18 07:00 [place] % (Auto) 5.1 % (0.0-10.0) 06/08/18 07:00 Eos % (Auto) 1.8 % (0.0-4.0) 06/08/18 07:00 Baso % (Auto) 0.4 % (0.0-2.0) 06/08/18 07:00 Neut # (Auto) 7.2 K/uL (1.8-7.0) H 06/08/18 07:00 Lymph # (Auto) 0.7 K/uL (1.0-4.3) L 06/08/18 07:00 [place] # (Auto) 0.4 K/uL (0.0-0.8) 06/08/18 07:00 Eos # (Auto) 0.2 K/uL (0.0-0.7) 06/08/18 07:00 Baso # (Auto) 0.0 K/uL (0.0-0.2) 06/08/18 07:00 Neutrophils % (Manual) 85 % (42-75) H 06/08/18 07:00 Band Neutrophils % 2 % (0-2) 06/08/18 07:00 Lymphocytes % (Manual) 4 % (20-50) L 06/08/18 07:00 Monocytes % (Manual) 4 % (0-10) 06/08/18 07:00 Eosinophils % (Manual) 2 % (0-7) 06/08/18 07:00 Myelocytes % 3 % (0-0) H 06/08/18 07:00 Toxic Granulation Present 06/08/18 07:00 Platelet Estimate Normal (NORMAL) 06/08/18 07:00 Hypochromasia (manual) Moderate 06/08/18 07:00 Anisocytosis (manual) Slight 06/08/18 07:00 Tear Drop Cells Slight 06/08/18 07:00 Ovalocytes Slight 06/08/18 07:00 PT 15.1 Seconds (9.8-13.1) H 06/02/18 09:21 INR 1.4 06/02/18 09:21 APTT 28.9 Seconds (25.6-37.1) 06/02/18 09:48 Sodium 141 mmol/l (132-148) 06/08/18 07:00 Potassium 4.7 MMOL/L (3.6-5.0) 06/08/18 07:00 Chloride 113 mmol/L (98-107) H 06/08/18 07:00 Carbon Dioxide 21 mmol/L (22-30) L 06/08/18 07:00 Anion Gap 12 (10-20) 06/08/18 07:00 BUN 45 mg/dl (9-20) H 06/08/18 07:00 Creatinine 3.2 mg/dl (0.8-1.5) H 06/08/18 07:00 Est GFR ( Amer) 23 06/08/18 07:00 Est GFR (Non-Af Amer) 19 06/08/18 07:00 Random Glucose 107 mg/dL (75-110) 06/08/18 07:00 Calcium 8.2 mg/dL (8.4-10.2) L 06/08/18 07:00 Phosphorus 3.5 mg/dl (2.5-4.5) 06/04/18 05:20 Magnesium 1.8 MG/DL (1.6-2.3) 06/04/18 05:20 Total Bilirubin 0.5 mg/dl (0.2-1.3) 06/04/18 05:20 AST 35 U/L (17-59) 06/04/18 05:20 ALT 47 U/L (21-72) 06/04/18 05:20 Alkaline Phosphatase 1158 U/L (38-126) H 06/04/18 05:20 Total Protein 6.5 G/DL (6.3-8.2) 06/04/18 05:20 Albumin 3.0 g/dL (3.5-5.0) L 06/04/18 05:20 Globulin 3.5 gm/dL (2.2-3.9) 06/04/18 05:20 Albumin/Globulin Ratio 0.9 (1.0-2.1) L 06/04/18 05:20 Ur Random Sodium 63 meq/L 06/02/18 15:24 Ur Random Potassium 17.7 mmol/L 06/02/18 15:24 - Hospital Course Hospital Course: Pt is an 78 y/o male w/ hx of Bladder CA with BL nephrostomy tubes, recently treated for UTI + for VRE E.Coli, who was admitted after finding of elevated Cr levels along with mental status changes in TCU . Pt was found to have obstructed left nephrostomy tube likely causing LINO. IR replaced both nephrostomy tubes and patients kidney function improved. Pt was stabilized for discharge to TCU for decreased functional mobility and gait training. Pt seen and evaluated with Dr. Beatriz Gerard, PGY2 Discharge Exam - Head Exam Head Exam: NORMAL INSPECTION - Eye Exam Eye Exam: Normal appearance - ENT Exam ENT Exam: Mucous Membranes Moist - Neck Exam Neck exam: Full Rom - Respiratory Exam Respiratory Exam: Clear to PA & Lateral - Cardiovascular Exam Cardiovascular Exam: REGULAR RHYTHM - GI/Abdominal Exam GI & Abdominal Exam: Normal Bowel Sounds, Soft - Extremities Exam Extremities exam: normal inspection - Neurological Exam Neurological exam: Alert, Oriented x3 - Psychiatric Exam Psychiatric exam: Depressed, Flat Affect - Skin Skin Exam: Normal Color Discharge Plan - Follow Up Plan Condition: FAIR Disposition: REHAB FACILITY/REHAB UNIT Instructions: How to Care for Your Nephrostomy Tube, Acute Kidney Failure (DC) Additional Instructions: [place]. NEPHROSTOMY TUBE. fLUSH NEPHROSTOMY TUBE PRN. Referrals: Vinay Henderson MD [Staff Provider] - Murray Dewey MD [Family Provider] - Haresh Wesley MD [Staff Provider] -
== END 2018-06-08 15:55 | DRG 698 ==
LOC: H.ER 12:53 → H.ERHOLD 13:40 → H.TEL 15:58 → H.MEDSURG1 06-03 22:49
PROVIDERS: ADMIT Internal Medicine; ATTEND Internal Medicine
PROC: 0T25X0Z Change Drainage Device in Kidney, External Approach (ICD-10-PCS; 2018-06-07)
PROC: BT13ZZZ Fluoroscopy of Bilateral Kidneys (ICD-10-PCS; 2018-06-07)
PROC: 0T25X0Z Change Drainage Device in Kidney, External Approach (ICD-10-PCS; principal; 2018-06-07 14:00)
DX: N99.528 Other complication of incontinent external stoma of urinary tract (principal); G92 Toxic encephalopathy; N17.9 Acute kidney failure, unspecified; N39.0 Urinary tract infection, site not specified; T83.512A Infection and inflammatory reaction due to nephrostomy catheter, initial encounter; N13.8 Other obstructive and reflux uropathy; C79.51 Secondary malignant neoplasm of bone; N18.9 Chronic kidney disease, unspecified; Y73.2 Prosthetic and other implants, materials and accessory gastroenterology and urology devices associated with adverse incidents; B95.2 Enterococcus as the cause of diseases classified elsewhere; E11.22 Type 2 diabetes mellitus with diabetic chronic kidney disease; C67.9 Malignant neoplasm of bladder, unspecified; R53.81 Other malaise; B96.20 Unspecified Escherichia coli [E. coli] as the cause of diseases classified elsewhere; G89.29 Other chronic pain; Z16.21 Resistance to vancomycin; N40.1 Benign prostatic hyperplasia with lower urinary tract symptoms; Z79.891 Long term (current) use of opiate analgesic

== ENCOUNTER 2018-06-08 13:33 | Inpatient (IN) | payer MEDICARE ==
[2018-06-08 16:27] VITALS: BMI 20.1
[2018-06-08] MEDS: oxyCODONE 10 mg Immediate Release Tab PO PRN (17:29)
--- NOTE | 2018-06-08 20:08 | CP.PCM.CON ---
History of Present Illness - History of Present Illness History of Present Illness: Dr Lopes PMR consultation on Wili Genao, born 1940, who has been admitted to [facility] TCU for ALEA. + bladder CA with mets. He has marked weight loss since I had last seen him 2 months ago. He is in significant pain and feels he cannot go on like this. He had been better at home in regards to pain levels. Review of Systems - Constitutional Constitutional: Anorexia, Fatigue, Weight Loss. absent: Chills - EENT Nose/Mouth/Throat: absent: Nasal Congestion - Cardiovascular Cardiovascular: absent: Chest Pain - Respiratory Respiratory: Dyspnea on Exertion - Musculoskeletal Musculoskeletal: Back Pain Past Patient History - Infectious Disease Hx of Infectious Diseases: None - Past Medical History & Family History Past Medical History?: Yes - Past Social History Smoking Status: Never Smoked - CARDIAC Hx Peripheral Edema: Yes (BLE) - PULMONARY Hx Respiratory Disorders: No - NEUROLOGICAL Hx Neurological Disorder: No - HEENT Hx HEENT Problems: No - RENAL Hx Chronic Kidney Disease: No - ENDOCRINE/METABOLIC Hx Diabetes Mellitus Type 2: Yes - HEMATOLOGICAL/ONCOLOGICAL Hx AIDS: No Hx Anemia: Yes Hx Human Immunodeficiency Virus (HIV): No - INTEGUMENTARY Hx Dermatological Problems: No - MUSCULOSKELETAL/RHEUMATOLOGICAL Hx Falls: No - GASTROINTESTINAL Hx Gastrointestinal Disorders: No Other/Comment: TURBT - GENITOURINARY/GYNECOLOGICAL Hx Genitourinary Disorders: Yes 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) Other/Comment: B/L Nephrostomy tubes; HX OBSTRUCTIVE UROPATHY - PSYCHIATRIC Hx Substance Use: No - SURGICAL HISTORY Hx Herniorrhaphy: Yes - ANESTHESIA Hx Anesthesia: Yes Hx Anesthesia Reactions: No Hx Malignant Hyperthermia: No Meds Allergies/Adverse Reactions: Allergies Allergy/AdvReac Type Severity Reaction Status Date / Time aspirin Allergy DIZZINESS Verified 05/30/18 17:51 - Medications Medications: Current Medications Alprazolam (Xanax) 0.25 mg PO Q6 PRN PRN Reason: Anxiety Stop: 06/15/18 22:01 Last Admin: 06/08/18 19:33 Dose: 0.25 mg Bupropion HCl (Wellbutrin) 75 mg PO DAILY [facility] Lactulose (Enulose) 20 gm PO DAILY [facility] Linezolid (Zyvox) 600 mg PO Q12 [facility]; Protocol Ondansetron HCl (Zofran Inj) 4 mg IVP Q6 PRN PRN Reason: Nausea/Vomiting Last Admin: 06/08/18 17:25 Dose: 4 mg Oxycodone HCl (Oxycodone Immediate Release Tab) 10 mg PO Q4 PRN PRN Reason: Pain, severe (8-10) Last Admin: 06/08/18 17:29 Dose: 10 mg Senna/Docusate Sodium (Senokot S 50 Mg-8.6 Mg) 1 tab PO HS [facility] Tamsulosin HCl (Flomax) 0.4 mg PO HS [facility] Physical Exam - Constitutional Appears: Cachectic, Chronically Ill Assessment & Plan - Assessment and Plan (Free Text) Assessment: Patient with metastatic CA and severe wasting I have ordered oxycontin 20mg q12 and will see how this helps PT/OT as tolerated
[2018-06-08] MEDS: oxyCODONE 20 mg ER Tab (oxyCONTIN) PO SCH (21:26)
[2018-06-08] MEDS: Docusate-Senna 50 mg-8.6 mg Tab PO SCH (21:27)
[2018-06-09] MEDS: oxyCODONE 10 mg Immediate Release Tab PO PRN ×3 (03:40→22:46)
[2018-06-09 07:09] LABS: HEMOGLOBIN 8.1 g/dL (12.0-18.0); MEAN CORPUSCULAR HEMOGLOBIN 32.5 pg (27.0-31.0); MEAN CORPUSCULAR HGB CONC 34.3 g/dL (33.0-37.0); RBC 2.49 Mil/uL (4.40-5.90); RED CELL DISTRIBUTION WIDTH 19.3 % (11.5-14.5); WHITE BLOOD COUNT 6.2 K/uL (4.8-10.8)
[2018-06-09 07:26] LABS: ALB/GLOB RATIO 0.8 (1.0-2.1); ALBUMIN 2.9 g/dL (3.5-5.0); CALCIUM 8.2 mg/dL (8.4-10.2)
[2018-06-09] MEDS: oxyCODONE 20 mg ER Tab (oxyCONTIN) PO SCH ×2 (08:23→21:36)
--- NOTE | 2018-06-09 09:48 | CP.PCM.CON ---
History of Present Illness - History of Present Illness History of Present Illness: Psychiatry consult Repair Department Supervisor attempted to meet with patient, but he was unwilling to talk with commercial loan underwriter. -Recommend to continue with current medications -Call for evaluation when patient is willing to engage in psychiatric interview Past Patient History - Infectious Disease Hx of Infectious Diseases: None - Past Medical History & Family History Past Medical History?: Yes - Past Social History Smoking Status: Never Smoked - CARDIAC Hx Peripheral Edema: Yes (BLE) - PULMONARY Hx Respiratory Disorders: No - NEUROLOGICAL Hx Neurological Disorder: No - HEENT Hx HEENT Problems: No - RENAL Hx Chronic Kidney Disease: No - ENDOCRINE/METABOLIC Hx Diabetes Mellitus Type 2: Yes - HEMATOLOGICAL/ONCOLOGICAL Hx AIDS: No Hx Anemia: Yes Hx Human Immunodeficiency Virus (HIV): No - INTEGUMENTARY Hx Dermatological Problems: No - MUSCULOSKELETAL/RHEUMATOLOGICAL Hx Falls: No - GASTROINTESTINAL Hx Gastrointestinal Disorders: No Other/Comment: TURBT - GENITOURINARY/GYNECOLOGICAL Hx Genitourinary Disorders: Yes 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) Other/Comment: B/L Nephrostomy tubes; HX OBSTRUCTIVE UROPATHY - PSYCHIATRIC Hx Substance Use: No - SURGICAL HISTORY Hx Herniorrhaphy: Yes - ANESTHESIA Hx Anesthesia: Yes Hx Anesthesia Reactions: No Hx Malignant Hyperthermia: No Meds Allergies/Adverse Reactions: Allergies Allergy/AdvReac Type Severity Reaction Status Date / Time aspirin Allergy DIZZINESS Verified 05/30/18 17:51 - Medications Medications: Current Medications Alprazolam (Xanax) 0.25 mg PO Q6 PRN PRN Reason: Anxiety Stop: 06/15/18 22:01 Last Admin: 06/09/18 04:28 Dose: 0.25 mg Bupropion HCl (Wellbutrin) 75 mg PO DAILY [facility] Last Admin: 06/09/18 08:23 Dose: 75 mg Lactulose (Enulose) 20 gm PO DAILY [facility] Last Admin: 06/09/18 08:23 Dose: 20 gm Linezolid (Zyvox) 600 mg PO Q12 [facility]; Protocol Last Admin: 06/09/18 08:24 Dose: 600 mg Ondansetron HCl (Zofran Inj) 4 mg IVP Q6 PRN PRN Reason: Nausea/Vomiting Last Admin: 06/08/18 17:25 Dose: 4 mg Oxycodone HCl (Oxycodone Immediate Release Tab) 10 mg PO Q4 PRN PRN Reason: Pain, severe (8-10) Last Admin: 06/09/18 03:40 Dose: 10 mg Oxycodone HCl (Oxycontin Extended Release Tab) 20 mg PO Q12 [facility] Last Admin: 06/09/18 08:23 Dose: 20 mg Senna/Docusate Sodium (Senokot S 50 Mg-8.6 Mg) 1 tab PO HS [facility] Last Admin: 06/08/18 21:27 Dose: 1 tab Tamsulosin HCl (Flomax) 0.4 mg PO HS [facility] Last Admin: 06/08/18 21:33 Dose: 0.4 mg Results - Vital Signs Recent Vital Signs: Last Vital Signs Temp 98.1 F 06/08/18 16:00 Pulse 83 06/08/18 18:58 Resp 17 06/08/18 18:58 BP 119/58 L 06/08/18 16:00 Pulse Ox 96 06/08/18 18:58 - Labs Result Diagrams: 06/09/18 06:51 06/09/18 06:51 Labs: Laboratory Results - last 24 hr 06/09/18 06/09/18 06:51 06:51 WBC 6.2 RBC 2.49 L Hgb 8.1 L Hct 23.6 L MCV 95.0 H MCH 32.5 H MCHC 34.3 RDW 19.3 H Plt Count 102 L D Sodium 140 Potassium 4.5 Chloride 112 H Carbon Dioxide 22 Anion Gap 11 BUN 38 H Creatinine 2.5 H Est GFR ( Amer) 30 Est GFR (Non-Af Amer) 25 Random Glucose 87 Calcium 8.2 L Total Bilirubin 0.4 AST 33 ALT 40 Alkaline Phosphatase 972 H Total Protein 6.5 Albumin 2.9 L Globulin 3.6 Albumin/Globulin Ratio 0.8 L
[2018-06-09] MEDS: Carbamide Peroxide OTIC SOLUTION AU SCH ×2 (15:11→18:09)
--- NOTE | 2018-06-09 16:09 | CP.PCM.HP ---
<Michele Gerard - Last Filed: 06/09/18 16:07> History of Present Illness - History of Present Illness History of Present Illness: Pt is an 78 y/o male w/ hx of Bladder CA with BL nephrostomy tubes, recently treated for UTI + for VRE E.Coli and Acute Kidney Injury secondary to post obstructive uropathy, now admitted to TCU for decreased functional mobility and gait training. 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 Followed by Pain management. Urologist: Dr. Dewey Nehrologist: Dr. Wesley Oncologist: Dr. Daniella Dewey fmhx: breast cancer soc: denies smoking, alcohol, illicit drugs lives with son surg: nephrostomy tubes with urine drain x 2 allergy to aspirin Present on Admission - Present on Admission Any Indicators Present on Admission: Yes History of DVT/PE: No History of Uncontrolled Diabetes: No Urinary Catheter: Yes (BL Nephrostomy tubes) Past Patient History - Infectious Disease Hx of Infectious Diseases: None - Past Medical History & Family History Past Medical History?: Yes - Past Social History Smoking Status: Never Smoked - CARDIAC Hx Peripheral Edema: Yes (BLE) - PULMONARY Hx Respiratory Disorders: No - NEUROLOGICAL Hx Neurological Disorder: No - HEENT Hx HEENT Problems: No - RENAL Hx Chronic Kidney Disease: No - ENDOCRINE/METABOLIC Hx Diabetes Mellitus Type 2: Yes - HEMATOLOGICAL/ONCOLOGICAL Hx AIDS: No Hx Anemia: Yes Hx Human Immunodeficiency Virus (HIV): No - INTEGUMENTARY Hx Dermatological Problems: No - MUSCULOSKELETAL/RHEUMATOLOGICAL Hx Falls: No - GASTROINTESTINAL Hx Gastrointestinal Disorders: No Other/Comment: TURBT - GENITOURINARY/GYNECOLOGICAL Hx Genitourinary Disorders: Yes 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) Other/Comment: B/L Nephrostomy tubes; HX OBSTRUCTIVE UROPATHY - PSYCHIATRIC Hx Substance Use: No - SURGICAL HISTORY Hx Herniorrhaphy: Yes - ANESTHESIA Hx Anesthesia: Yes Hx Anesthesia Reactions: No Hx Malignant Hyperthermia: No Meds Allergies/Adverse Reactions: Allergies Allergy/AdvReac Type Severity Reaction Status Date / Time aspirin Allergy DIZZINESS Verified 05/30/18 17:51 Physical Exam - Constitutional Appears: Non-toxic, No Acute Distress, Chronically Ill - Head Exam Head Exam: NORMAL INSPECTION - Eye Exam Eye Exam: Normal appearance - ENT Exam ENT Exam: Mucous Membranes Moist - Neck Exam Neck exam: Positive for: Full Rom - Respiratory Exam Respiratory Exam: Clear to Auscultation Bilateral. absent: Rales, Wheezes - Cardiovascular Exam Cardiovascular Exam: REGULAR RHYTHM, +S1, +S2 - GI/Abdominal Exam GI & Abdominal Exam: Normal Bowel Sounds, Soft. absent: Tenderness - Extremities Exam Extremities exam: Negative for: pedal edema - Neurological Exam Neurological exam: Alert - Psychiatric Exam Psychiatric exam: Depressed, Flat Affect - Skin Skin Exam: Normal Color Results - Vital Signs Recent Vital Signs: Last Vital Signs Temp 98.1 F 06/09/18 10:00 Pulse 86 06/09/18 10:00 Resp 19 06/09/18 10:00 BP 115/52 L 06/09/18 10:00 Pulse Ox 98 06/09/18 10:00 - Labs Result Diagrams: 06/09/18 06:51 06/09/18 06:51 Labs: Laboratory Results - last 24 hr 06/09/18 06/09/18 06:51 06:51 WBC 6.2 RBC 2.49 L Hgb 8.1 L Hct 23.6 L MCV 95.0 H MCH 32.5 H MCHC 34.3 RDW 19.3 H Plt Count 102 L D Sodium 140 Potassium 4.5 Chloride 112 H Carbon Dioxide 22 Anion Gap 11 BUN 38 H Creatinine 2.5 H Est GFR ( Amer) 30 Est GFR (Non-Af Amer) 25 Random Glucose 87 Calcium 8.2 L Total Bilirubin 0.4 AST 33 ALT 40 Alkaline Phosphatase 972 H Total Protein 6.5 Albumin 2.9 L Globulin 3.6 Albumin/Globulin Ratio 0.8 L Assessment & Plan - Assessment and Plan (Free Text) Assessment: Pt is an 78 y/o male w/ hx of Bladder CA with BL nephrostomy tubes, recently treated for UTI + for VRE E.Coli and Acute Kidney Injury secondary to post obstructive uropathy, now admitted to TCU for decreased functional mobility and gait training. Notable, pt is also depressed and suffered chronic back pain l ikely from metastasis to spine. Followed by Pain management. -Physical Therapy -Complained of ear wax, Debrox ordered -Depression- Wellbutrin -Chronic Back pain- Oxycodone 20mg Q 12 and 10mg q4 prn (as per pain management) -UTI-Zyvox discontinued as pt has completed 10 days as per ID for treatment of VRE UTI -C/W remainder of home meds Discussed case with Dr. Beatriz Gerard, PGY2 <Vinay Henderson - Last Filed: 06/09/18 17:29> Results - Vital Signs Recent Vital Signs: Last Vital Signs Temp 98.1 F 06/09/18 17:22 Pulse 88 06/09/18 17:22 Resp 20 06/09/18 17:22 BP 111/58 L 06/09/18 17:22 Pulse Ox 99 06/09/18 17:22 - Labs Result Diagrams: 06/09/18 06:51 06/09/18 06:51 Labs: Laboratory Results - last 24 hr 06/09/18 06/09/18 06:51 06:51 WBC 6.2 RBC 2.49 L Hgb 8.1 L Hct 23.6 L MCV 95.0 H MCH 32.5 H MCHC 34.3 RDW 19.3 H Plt Count 102 L D Sodium 140 Potassium 4.5 Chloride 112 H Carbon Dioxide 22 Anion Gap 11 BUN 38 H Creatinine 2.5 H Est GFR ( Amer) 30 Est GFR (Non-Af Amer) 25 Random Glucose 87 Calcium 8.2 L Total Bilirubin 0.4 AST 33 ALT 40 Alkaline Phosphatase 972 H Total Protein 6.5 Albumin 2.9 L Globulin 3.6 Albumin/Globulin Ratio 0.8 L Assessment & Plan - Assessment and Plan (Free Text) Assessment: Patient was personally seen and examined by me in rounds with residents. Available labs and diagnostic data reviewed. Case, Patient's condition and management plan discussed with residents in rounds. Agree with resident's progress note. Plan: As ordered.
[2018-06-09 17:23] VITALS: RESP 20
[2018-06-09] MEDS: Docusate-Senna 50 mg-8.6 mg Tab PO SCH (21:37)
[2018-06-10] MEDS: oxyCODONE 10 mg Immediate Release Tab PO PRN ×2 (04:22→16:27)
[2018-06-10] MEDS: oxyCODONE 20 mg ER Tab (oxyCONTIN) PO SCH ×2 (08:54→20:48)
[2018-06-10] MEDS: Carbamide Peroxide OTIC SOLUTION AU SCH ×2 (08:56→16:28)
--- NOTE | 2018-06-10 16:31 | CP.PCM.PN ---
<Michele Gerard - Last Filed: 06/10/18 16:28> Subjective - Date & Time of Evaluation Date of Evaluation: 06/10/18 Time of Evaluation: 08:00 - Subjective Subjective: Pt seen and examined this morning. More alert than usual. Complaints of back pain (Chronic). Partially relieved with medication. Later in the afternoon, had a discussion with patient's son, Jessee, regarding goals of care. Son is amenable to hospice care but would like more information. Discussed with social organization professor to arrange meeting on Wednesday with pt's son and [facility] nurse. Objective - Vital Signs/Intake and Output Vital Signs (last 24 hours): Temp Pulse Resp BP Pulse Ox 97.9 F 90 20 123/54 L 98 06/09/18 20:31 06/09/18 20:31 06/09/18 20:31 06/09/18 20:31 06/09/18 20:31 - Medications Medications: Current Medications Alprazolam (Xanax) 0.25 mg PO Q6 PRN PRN Reason: Anxiety Stop: 06/15/18 22:01 Last Admin: 06/09/18 15:14 Dose: 0.25 mg Bupropion HCl (Wellbutrin) 75 mg PO DAILY [facility] Last Admin: 06/10/18 08:54 Dose: 75 mg Carbamide Peroxide (Debrox Ear Drops) 5 drop AU BID [facility] Last Admin: 06/10/18 08:56 Dose: 5 drop Lactulose (Enulose) 20 gm PO DAILY [facility] Last Admin: 06/10/18 08:54 Dose: 20 gm Ondansetron HCl (Zofran Inj) 4 mg IVP Q6 PRN PRN Reason: Nausea/Vomiting Last Admin: 06/10/18 04:38 Dose: 4 mg Oxycodone HCl (Oxycodone Immediate Release Tab) 10 mg PO Q4 PRN PRN Reason: Pain, severe (8-10) Last Admin: 06/10/18 04:22 Dose: 10 mg Oxycodone HCl (Oxycontin Extended Release Tab) 20 mg PO Q12 [facility] Last Admin: 06/10/18 08:54 Dose: 20 mg Senna/Docusate Sodium (Senokot S 50 Mg-8.6 Mg) 1 tab PO HS [facility] Last Admin: 06/09/18 21:37 Dose: 1 tab Tamsulosin HCl (Flomax) 0.4 mg PO HS [facility] Last Admin: 06/09/18 21:37 Dose: 0.4 mg - Labs Labs: 06/09/18 06:51 06/09/18 06:51 - Constitutional Appears: No Acute Distress, Chronically Ill - Head Exam Head Exam: NORMAL INSPECTION - Eye Exam Eye Exam: Normal appearance - ENT Exam ENT Exam: Mucous Membranes Moist - Neck Exam Neck Exam: Full ROM - Respiratory Exam Respiratory Exam: Clear to Ausculation Bilateral. absent: Rales, Wheezes - Cardiovascular Exam Cardiovascular Exam: REGULAR RHYTHM - GI/Abdominal Exam GI & Abdominal Exam: Soft. absent: Tenderness - Extremities Exam Extremities Exam: absent: Pedal Edema - Neurological Exam Neurological Exam: Alert, Oriented x3 - Psychiatric Exam Psychiatric exam: Depressed, Flat Affect - Skin Skin Exam: Normal Color Assessment and Plan - Assessment and Plan (Free Text) Assessment: Pt is an 78 y/o male w/ hx of Bladder CA with BL nephrostomy tubes, recently treated for UTI + for VRE E.Coli and Acute Kidney Injury secondary to post obstructive uropathy, now admitted to TCU for decreased functional mobility and gait training. 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 Plan for family meeting with Hospice nurse on Wednesday. -C/W Physical Therapy -Depression- Wellbutrin -Chronic Back pain- Oxycodone 20mg Q 12 and 10mg q4 prn (as per pain management) -C/W remainder of home meds Discussed case with Dr. Beatriz Gerard, PGY2 <Vinay Henderson - Last Filed: 06/13/18 02:49> Objective - Vital Signs/Intake and Output Vital Signs (last 24 hours): Temp Pulse Resp BP Pulse Ox 98.2 F 89 20 113/56 L 98 06/12/18 19:44 06/12/18 19:44 06/12/18 19:44 06/12/18 19:44 06/12/18 19:44 Intake and Output: 06/12/18 06/13/18 18:59 06:59 Output Total 425 Balance -425 - Medications Medications: Current Medications Alprazolam (Xanax) 0.25 mg PO Q6 PRN PRN Reason: Anxiety Stop: 06/15/18 22:01 Last Admin: 06/12/18 06:38 Dose: 0.25 mg Bupropion HCl (Wellbutrin) 75 mg PO DAILY [facility] Last Admin: 06/12/18 08:57 Dose: 75 mg Carbamide Peroxide (Debrox Ear Drops) 5 drop AU BID [facility] Last Admin: 06/12/18 17:21 Dose: 5 drop Lactulose (Enulose) 20 gm PO DAILY [facility] Last Admin: 06/12/18 08:58 Dose: Not Given Ondansetron HCl (Zofran Inj) 4 mg IVP Q6 PRN PRN Reason: Nausea/Vomiting Last Admin: 06/11/18 18:24 Dose: 4 mg Oxycodone HCl (Oxycontin Extended Release Tab) 20 mg PO Q12 [facility] Last Admin: 06/12/18 20:24 Dose: 20 mg Oxycodone HCl (Oxycodone Immediate Release Tab) 10 mg PO Q4 PRN PRN Reason: Pain, severe (8-10) Last Admin: 06/13/18 00:16 Dose: 10 mg Senna/Docusate Sodium (Senokot S 50 Mg-8.6 Mg) 1 tab PO [facility] Last Admin: 06/12/18 21:08 Dose: 1 tab Tamsulosin HCl (Flomax) 0.4 mg PO [facility] Last Admin: 06/12/18 21:08 Dose: 0.4 mg - Labs Labs: 06/09/18 06:51 06/09/18 06:51 Assessment and Plan - Assessment and Plan (Free Text) Assessment: Patient was personally seen and examined by me in rounds with residents. Available labs and diagnostic data reviewed. Case, Patient's condition and management plan discussed with residents in rounds. Agree with resident's progress note. Plan: As ordered.
[2018-06-10] MEDS: Docusate-Senna 50 mg-8.6 mg Tab PO SCH (21:00)
--- NOTE | 2018-06-11 00:21 | CP.PCM.CON ---
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 He has been receiving chemotherapy with carboplatin and gemcitabine. He recently completed radiotherapy for pain control. He notes to continued back pain. He continues to have a poor appetite. He denies N/V/D. Past medical history: DM, urothelial cancer Past surgical history: Hernia repair Family history: Denies hematologic and oncologic problems Social history: Former tobacco, denies alcohol, and illicit drug use. Allergies: Aspirin Review of systems: All remaining review of systems including HEENT, cardiovascular, respiratory, gastrointestinal, genitourinary, musculoskeletal, dermatologic, neurologic, and psychiatric are negative unless mentioned in the HPI. Past Patient History - Infectious Disease Hx of Infectious Diseases: None - Past Medical History & Family History Past Medical History?: Yes - Past Social History Smoking Status: Never Smoked - CARDIAC Hx Peripheral Edema: Yes (BLE) - PULMONARY Hx Respiratory Disorders: No - NEUROLOGICAL Hx Neurological Disorder: No - HEENT Hx HEENT Problems: No - RENAL Hx Chronic Kidney Disease: No - ENDOCRINE/METABOLIC Hx Diabetes Mellitus Type 2: Yes - HEMATOLOGICAL/ONCOLOGICAL Hx AIDS: No Hx Anemia: Yes Hx Human Immunodeficiency Virus (HIV): No - INTEGUMENTARY Hx Dermatological Problems: No - MUSCULOSKELETAL/RHEUMATOLOGICAL Hx Falls: No - GASTROINTESTINAL Hx Gastrointestinal Disorders: No Other/Comment: TURBT - GENITOURINARY/GYNECOLOGICAL Hx Genitourinary Disorders: Yes 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) Other/Comment: B/L Nephrostomy tubes; HX OBSTRUCTIVE UROPATHY - PSYCHIATRIC Hx Substance Use: No - SURGICAL HISTORY Hx Herniorrhaphy: Yes - ANESTHESIA Hx Anesthesia: Yes Hx Anesthesia Reactions: No Hx Malignant Hyperthermia: No Meds Allergies/Adverse Reactions: Allergies Allergy/AdvReac Type Severity Reaction Status Date / Time aspirin Allergy DIZZINESS Verified 05/30/18 17:51 - Medications Medications: Current Medications Alprazolam (Xanax) 0.25 mg PO Q6 PRN PRN Reason: Anxiety Stop: 06/15/18 22:01 Last Admin: 06/09/18 15:14 Dose: 0.25 mg Bupropion HCl (Wellbutrin) 75 mg PO DAILY [facility] Last Admin: 06/10/18 08:54 Dose: 75 mg Carbamide Peroxide (Debrox Ear Drops) 5 drop AU BID [facility] Last Admin: 06/10/18 16:28 Dose: 5 drop Lactulose (Enulose) 20 gm PO DAILY [facility] Last Admin: 06/10/18 08:54 Dose: 20 gm Ondansetron HCl (Zofran Inj) 4 mg IVP Q6 PRN PRN Reason: Nausea/Vomiting Last Admin: 06/10/18 04:38 Dose: 4 mg Oxycodone HCl (Oxycodone Immediate Release Tab) 10 mg PO Q4 PRN PRN Reason: Pain, severe (8-10) Last Admin: 06/10/18 16:27 Dose: 10 mg Oxycodone HCl (Oxycontin Extended Release Tab) 20 mg PO Q12 [facility] Last Admin: 06/10/18 20:48 Dose: 20 mg Senna/Docusate Sodium (Senokot S 50 Mg-8.6 Mg) 1 tab PO [facility] Last Admin: 06/10/18 21:00 Dose: 1 tab Tamsulosin HCl (Flomax) 0.4 mg PO [facility] Last Admin: 06/10/18 21:00 Dose: 0.4 mg Physical Exam - Head Exam Head Exam: ATRAUMATIC - Eye Exam Eye Exam: Normal appearance - ENT Exam ENT Exam: Mucous Membranes Dry - Respiratory Exam Respiratory Exam: NORMAL BREATHING PATTERN - Cardiovascular Exam Cardiovascular Exam: +S1, +S2 - GI/Abdominal Exam GI & Abdominal Exam: Normal Bowel Sounds - Extremities Exam Extremities exam: Positive for: normal inspection - Neurological Exam Neurological exam: Oriented x3 - Psychiatric Exam Psychiatric exam: Normal Affect, Normal Mood - Skin Skin Exam: Warm Results - Vital Signs Recent Vital Signs: Last Vital Signs Temp 97.9 F 06/10/18 20:58 Pulse 79 06/10/18 20:58 Resp 20 06/10/18 20:58 BP 111/50 L 06/10/18 20:58 Pulse Ox 98 06/10/18 20:58 - Labs Result Diagrams: 06/09/18 06:51 06/09/18 06:51 Assessment & Plan (1) Anemia Assessment and Plan: chronic disease from malignancy recent radiation bone marrow metastasis will give a dose of procrit transfusion support PRN Status: Acute (2) Bladder cancer Assessment and Plan: s/p palliative radiotherapy outpatient systemic therapy Thank you for this interesting consult. Status: Chronic Priority: High
[2018-06-11] MEDS: oxyCODONE 10 mg Immediate Release Tab PO PRN ×6 (00:33→22:49)
[2018-06-11] MEDS: Carbamide Peroxide OTIC SOLUTION AU SCH ×2 (08:18→16:21)
[2018-06-11] MEDS: oxyCODONE 20 mg ER Tab (oxyCONTIN) PO SCH ×2 (08:20→20:08)
[2018-06-11] MEDS ORDERED: Epoetin Alfa 40000 UNIT/ml Inj SC ONE (10:00)
--- NOTE | 2018-06-11 13:05 | PN ---
DATE: 06/11/2018 SUBJECTIVE: The patient seen and examined. Interim events noted. The patient complains of constipation. Nursing staff also reported no bowel movements in three days. The patient has chronic abdominal pain, which is controlled with medication. PHYSICAL EXAMINATION: GENERAL: The patient is in no acute distress. VITAL SIGNS: Stable. HEART: S1 and S2, normal and regular. LUNGS: Good bilateral air exchange. ABDOMEN: Soft and nontender. No sign of acute abdomen. No guarding. No rigidity or rebound. Bowel sounds are plus and normal. EXTREMITIES: No edema. No calf swelling. No tenderness. No acute ischemia. EXHAUST AND MUFFLER FITTER: Exam is essentially unchanged. DIAGNOSTIC DATA: Available diagnostic data reviewed. ASSESSMENT: Overall, the patient's general medical condition is stable. PLAN: As ordered. Vinay Henderson MD
[2018-06-11] MEDS: Docusate-Senna 50 mg-8.6 mg Tab PO SCH ×2 (20:10→23:06)
[2018-06-12] MEDS: oxyCODONE 10 mg Immediate Release Tab PO PRN ×2 (01:50→17:21)
[2018-06-12] MEDS: oxyCODONE 20 mg ER Tab (oxyCONTIN) PO SCH ×2 (08:57→20:24)
[2018-06-12] MEDS: Carbamide Peroxide OTIC SOLUTION AU SCH ×2 (08:58→17:21)
--- NOTE | 2018-06-12 16:55 | PN ---
DATE: 06/12/2018 SUBJECTIVE: The patient is seen and examined. Interim events noted. The patient remains in Transitional Care Unit. The patient is sleeping. The patient had pain that was not controlled and overnight IV morphine was given. Currently, the patient is sleeping comfortably without any sign of pain. No other specific issue reported by Nursing staff. PHYSICAL EXAMINATION: Physical exam is essentially unchanged. DIAGNOSTIC DATA: Available diagnostic data reviewed. ASSESSMENT AND PLAN: Overall, the patient's general medical condition is hemodynamically stable, although long-term functional prognosis remains poor due to metastatic nature of this cancer. Plan as ordered. Vinay Henderson MD
[2018-06-12] MEDS: Docusate-Senna 50 mg-8.6 mg Tab PO SCH (21:08)
[2018-06-13] MEDS: oxyCODONE 5 mg Immediate Release Tab PO PRN ×2 (00:16→05:12)
[2018-06-13] MEDS: oxyCODONE 20 mg ER Tab (oxyCONTIN) PO SCH ×2 (08:15→21:37)
[2018-06-13] MEDS: Carbamide Peroxide OTIC SOLUTION AU SCH ×2 (08:15→17:08)
--- NOTE | 2018-06-13 14:10 | PN ---
DATE: 06/13/2018 SUBJECTIVE: The patient seen and examined. Interim events noted. The patient remains in transitional care unit. Feels chronically sick. Denies any specific new complaint. Pain is adequately controlled. PHYSICAL EXAMINATION: GENERAL: The patient is in no acute distress. VITAL SIGNS: Stable. Physical exam is essentially unchanged. DIAGNOSTIC DATA: Available diagnostic data reviewed. ASSESSMENT AND PLAN: Overall, the patient's general medical condition is stable. Plan as ordered. Vinay Henderson MD
[2018-06-13] MEDS: Docusate-Senna 50 mg-8.6 mg Tab PO SCH (21:37)
[2018-06-14] MEDS: oxyCODONE 5 mg Immediate Release Tab PO PRN ×2 (02:44→13:26)
[2018-06-14] MEDS: oxyCODONE 20 mg ER Tab (oxyCONTIN) PO SCH ×2 (09:15→20:05)
[2018-06-14] MEDS: Carbamide Peroxide OTIC SOLUTION AU SCH ×2 (09:17→16:38)
--- NOTE | 2018-06-14 15:23 | PN ---
DATE: 06/14/2018 SUBJECTIVE: The patient seen and examined. Interim events noted. The patient remains in transitional care unit episodes of pain. Requiring medication. Currently sleeping, arousable and in no pain. PHYSICAL EXAMINATION: GENERAL: The patient is in no acute distress. VITAL SIGNS: Stable. Physical exam is essentially unchanged. DIAGNOSTIC DATA: Available diagnostic data reviewed. ASSESSMENT AND PLAN: Overall, the patient's general medical condition is stable. Hospice evaluation was done. Final decision from family is pending. Plan as ordered. Vinay Henderson MD
[2018-06-14] MEDS: Docusate-Senna 50 mg-8.6 mg Tab PO SCH (21:42)
[2018-06-15] MEDS: oxyCODONE 5 mg Immediate Release Tab PO PRN ×2 (03:08→10:15)
[2018-06-15 06:48] LABS: BASO % 0.6 % (0.0-2.0); EOS # 0.1 K/uL (0.0-0.7); EOS % 2.7 % (0.0-4.0); HEMOGLOBIN 7.1 g/dL (12.0-18.0); LYMPH # 0.6 K/uL (1.0-4.3); LYMPH % 12.1 % (20.0-40.0); MEAN CELL VOLUME 93.8 fl (80.0-94.0); MEAN CORPUSCULAR HEMOGLOBIN 31.8 pg (27.0-31.0); MEAN CORPUSCULAR HGB CONC 33.9 g/dL (33.0-37.0); MEAN PLATELET VOLUME 6.1 fl (7.2-11.7); MONO # 0.4 K/uL (0.0-0.8); MONO % 8.3 % (0.0-10.0); NEUT # 3.9 K/uL (1.8-7.0); NEUT % 76.3 % (50.0-75.0); NRBC % 0.2 % (0.0-0.0); RBC 2.24 Mil/uL (4.40-5.90); RED CELL DISTRIBUTION WIDTH 18.7 % (11.5-14.5); WHITE BLOOD COUNT 5.1 K/uL (4.8-10.8)
[2018-06-15 07:47] LABS: ALB/GLOB RATIO 0.8 (1.0-2.1); ALBUMIN 2.7 g/dL (3.5-5.0)
[2018-06-15 08:11] VITALS: BP 109/59; PULSE 89; TEMP 98.1; O2SAT 99
[2018-06-15] MEDS: Carbamide Peroxide OTIC SOLUTION AU SCH (08:39)
[2018-06-15] MEDS: oxyCODONE 20 mg ER Tab (oxyCONTIN) PO SCH (08:40)
--- NOTE | 2018-06-15 22:36 | CP.PCM.PN ---
Subjective - Date & Time of Evaluation Date of Evaluation: 06/12/18 Time of Evaluation: 12:00 - Subjective Subjective: Feels weak, tired. Objective - Vital Signs/Intake and Output Vital Signs (last 24 hours): Temp Pulse Resp BP Pulse Ox 98.1 F 89 20 109/59 L 99 06/15/18 08:10 06/15/18 08:10 06/15/18 08:10 06/15/18 08:10 06/15/18 08:10 Intake and Output: 06/15/18 06/16/18 18:59 06:59 Output Total 150 Balance -150 - Labs Labs: 06/15/18 05:50 06/15/18 05:50 - Head Exam Head Exam: ATRAUMATIC - Eye Exam Eye Exam: Normal appearance - ENT Exam ENT Exam: Mucous Membranes Dry - Respiratory Exam Respiratory Exam: NORMAL BREATHING PATTERN - Cardiovascular Exam Cardiovascular Exam: +S1, +S2 - GI/Abdominal Exam GI & Abdominal Exam: Normal Bowel Sounds Assessment and Plan (1) Anemia Assessment & Plan: chronic disease repeat CBC Status: Acute (2) Bladder cancer Assessment & Plan: stage IV s/p palliative radiation and chemotherapy palliative care evaluation Status: Chronic
--- NOTE | 2018-06-15 22:44 | CP.PCM.PN ---
Subjective - Date & Time of Evaluation Date of Evaluation: 06/14/18 Time of Evaluation: 12:00 - Subjective Subjective: Feels weak Objective - Vital Signs/Intake and Output Vital Signs (last 24 hours): Temp Pulse Resp BP Pulse Ox 98.1 F 89 20 109/59 L 99 06/15/18 08:10 06/15/18 08:10 06/15/18 08:10 06/15/18 08:10 06/15/18 08:10 Intake and Output: 06/15/18 06/16/18 18:59 06:59 Output Total 150 Balance -150 - Labs Labs: 06/15/18 05:50 06/15/18 05:50 - Head Exam Head Exam: ATRAUMATIC - Eye Exam Eye Exam: Normal appearance - ENT Exam ENT Exam: Mucous Membranes Dry - Respiratory Exam Respiratory Exam: NORMAL BREATHING PATTERN - Cardiovascular Exam Cardiovascular Exam: +S1, +S2 - GI/Abdominal Exam GI & Abdominal Exam: Normal Bowel Sounds Assessment and Plan (1) Anemia Assessment & Plan: chronic disease recent radiation repeat CBC Status: Acute (2) Bladder cancer Assessment & Plan: stage IV s/p palliative radiation and chemotherapy Status: Chronic
== END 2018-06-15 15:00 | disposition short-term general hospital (02) | DRG 945 ==
LOC: H.TCU 16:31
PROVIDERS: ADMIT Internal Medicine; ATTEND Internal Medicine
PROC: F08Z1FZ Dressing Techniques Treatment using Assistive, Adaptive, Supportive or Protective Equipment (ICD-10-PCS; principal; 2018-06-08)
PROC: F07Z9FZ Gait Training/Functional Ambulation Treatment using Assistive, Adaptive, Supportive or Protective Equipment (ICD-10-PCS; 2018-06-08)
PROC: F07L6GZ Therapeutic Exercise Treatment of Musculoskeletal System - Lower Back / Lower Extremity using Aerobic Endurance and Conditioning Equipment (ICD-10-PCS; 2018-06-08)
DX: G89.3 Neoplasm related pain (acute) (chronic) (principal); C77.9 Secondary and unspecified malignant neoplasm of lymph node, unspecified; C79.51 Secondary malignant neoplasm of bone; C79.52 Secondary malignant neoplasm of bone marrow; N39.0 Urinary tract infection, site not specified; C67.9 Malignant neoplasm of bladder, unspecified; D63.0 Anemia in neoplastic disease; Z88.6 Allergy status to analgesic agent; E11.9 Type 2 diabetes mellitus without complications; F32.9 Major depressive disorder, single episode, unspecified; B95.2 Enterococcus as the cause of diseases classified elsewhere; Z16.21 Resistance to vancomycin; Z87.891 Personal history of nicotine dependence; K59.00 Constipation, unspecified; R63.4 Abnormal weight loss; Z68.20 Body mass index [BMI] 20.0-20.9, adult

== ENCOUNTER 2018-06-15 15:06 | Inpatient (IN) | payer MEDICARE ==
[2018-06-15 15:07] VITALS: BMI 24.1
[2018-06-15 16:19] LABS: VENOUS BLOOD GAS BASE EXCESS -1.8 mmol/L (0.0-2.0); VENOUS BLOOD GAS PCO2 42 mmHg (40-60); VENOUS BLOOD GAS PO2 34 mm/Hg (30-55); VENOUS BLOOD PH 7.36 (7.32-7.43)
[2018-06-15 16:37] LABS: BASO % 0.5 % (0.0-2.0); EOS # 0.1 K/uL (0.0-0.7); EOS % 1.7 % (0.0-4.0); HEMOGLOBIN 7.6 g/dL (12.0-18.0); LYMPH # 0.5 K/uL (1.0-4.3); LYMPH % 9.5 % (20.0-40.0); MEAN CELL VOLUME 94.7 fl (80.0-94.0); MEAN CORPUSCULAR HEMOGLOBIN 32.2 pg (27.0-31.0); MEAN PLATELET VOLUME 6.7 fl (7.2-11.7); MONO # 0.5 K/uL (0.0-0.8); NEUT # 4.5 K/uL (1.8-7.0); NEUT % 80.3 % (50.0-75.0); NRBC % 0.1 % (0.0-0.0); PLATELET COUNT 116 K/uL (130-400); RBC 2.36 Mil/uL (4.40-5.90); RED CELL DISTRIBUTION WIDTH 18.5 % (11.5-14.5); WHITE BLOOD COUNT 5.6 K/uL (4.8-10.8)
[2018-06-15 16:42] LABS: INR 1.5; PROTHROMBIN TIME 16.4 Seconds (9.8-13.1)
--- NOTE | 2018-06-15 16:45 | RAD ---
Date of service: 06/15/2018 HISTORY: possible admission COMPARISON: 06/01/2018 chest x-ray. CT chest 12/21/2017 FINDINGS: LUNGS: The left mid lung zone oval nodular opacity is less dense and less discrete. There is vague increased opacity in the right mid lung zone-how much of this is due to sclerotic osseous metastatic lesions how much of this is possibly underlying pleural parenchymal interval pathology is indeterminate. Note is made per the CT report of a right lung base pulmonary mass which is difficult to appreciate on this chest x-ray. For this correlate with any known pre existing pulmonary pathology here. A right Port-A-Cath is inserted its tip is in the superior vena cava as before. No pneumothorax seen. PLEURA: No significant pleural effusion identified, no pneumothorax apparent. CARDIOVASCULAR: Mild cardiomegaly-similar. Possible minimal pulmonary venous congestion and/or interstitial pulmonary edema findings similar. OSSEOUS STRUCTURES: Multifocal blastic metastases apparent. Please no prior CT chest report VISUALIZED UPPER ABDOMEN: Normal. OTHER FINDINGS: None. IMPRESSION: No interval left pulmonary pathology appreciated Interval increased ill-defined opacity in the right mid lung zone unclear in its origin either pleural parenchyma and/or worsening sclerotic blastic metastases. If needed, consider CT chest. Blastic metastases. Other findings as above.
[2018-06-15 16:51] LABS: ALB/GLOB RATIO 0.8 (1.0-2.1); ALT/SGPT 39 U/L (21-72); AST/SGOT 35 U/L (17-59); BLOOD UREA NITROGEN 21 mg/dl (9-20); GFR NON-AFRICAN AMERICAN 42; LIPASE < 10 U/L (23-300)
[2018-06-15 17:01] LABS: URINE CLARITY TURBID (Clear); URINE COLOR AMBER (YELLOW)
[2018-06-15 17:02] LABS: URINE BILIRUBIN NEGATIVE (NEGATIVE); URINE BLOOD SMALL (NEGATIVE); URINE GLUCOSE (UA) NEGATIVE (Normal)
[2018-06-15 17:03] LABS: SQUAMOUS EPITHIAL 2 /hpf (0-5); URINE LEUKOCYTE ESTERASE LARGE Leu/uL (Negative); URINE PROTEIN 100 mg/dL (NEGATIVE); URINE UROBILINOGEN 0.2 mg/dL (0.2-1.0)
--- NOTE | 2018-06-15 17:03 | ED PDOC ---
HPI: General Adult Time Seen by Provider: 06/15/18 15:31 Chief Complaint (Nursing): Abnormal Labs Chief Complaint (Provider): Abnormal Labs History Per: Patient, Other (Dr. Henderson) History/Exam Limitations: no limitations Onset/Duration Of Symptoms: Mins (prior to arrival) Current Symptoms Are (Timing): Still Present Additional Complaint(s): 78 year old male presents to the ED referred from TCU for admission for a blood transfusion as per Dr. Henderson. Patient has advanced metastatic cancer with a port in place. He reports advancing weakness lately, recently diagnosed with a UTI. Dr. Baker is requesting basic labs to be sent and pt will be transfused on the floor. PMD: Vinay Henderson Past Medical History Reviewed: Historical Data Vital Signs: Last Vital Signs Temp 98.5 F 06/15/18 15:11 Pulse 92 H 06/15/18 16:33 Resp 14 06/15/18 16:33 BP 102/57 L 06/15/18 16:33 Pulse Ox 95 06/15/18 16:33 - Medical History PMH: Anemia, Benign Prostatic Hyperplasia, Depression, Diabetes, Malignancy (advanced metastatic cancer), Peripheral Edema (BLE), Chronic Pain (Back ) Denies: HIV, Chronic Kidney Disease - Surgical History Surgical History: Hernia Repair - Family History Family History: States: Unknown Family Hx - Social History Current smoker - smoking cessation education provided: No Alcohol: None Drugs: Denies - Home Medications Home Medications: Ambulatory Orders Medication Instructions Recorded RX: Tamsulosin [Flomax] 0.4 mg PO HS 02/12/18 RX: Docusate Sodium/Sennosides A 1 tab PO HS tab 06/08/18 [Senokot S 50 MG-8.6 MG] RX: Lactulose [Enulose] 20 gm PO DAILY [facility] 06/08/18 RX: buPROPion [Wellbutrin] 75 mg PO DAILY tab 06/08/18 RX: oxyCODONE [oxyCODONE Immediate 10 mg PO Q4 PRN tab 06/08/18 Release Tab] RX: ALPRAZolam [Xanax] 0.25 mg PO Q6 PRN tab 06/15/18 RX: Carbamide Peroxide [Debrox Ear 5 drop AU BID bottle 06/15/18 Drops] RX: oxyCODONE [oxyCONTIN Extended 20 mg PO Q12 tabsr 06/15/18 Release Tab] RX: Docusate Sodium/Sennosides A 1 tab PO HS tab 06/17/18 [Senokot S 50 MG-8.6 MG] - Allergies Allergies/Adverse Reactions: Allergies Allergy/AdvReac Type Severity Reaction Status Date / Time aspirin Allergy DIZZINESS Verified 05/30/18 17:51 Review of Systems ROS Statement: Except As Marked, All Systems Reviewed And Found Negative Constitutional: Positive for: Weakness Physical Exam - Reviewed Nursing Documentation Reviewed: Yes Vital Signs Reviewed: Yes - Physical Exam Appears: Positive for: No Acute Distress (on stretcher) Head Exam: Positive for: ATRAUMATIC, NORMOCEPHALIC Skin: Positive for: Normal Color, Warm, Dry. Negative for: Rash Eye Exam: Positive for: Normal appearance Cardiovascular/Chest: Positive for: Regular Rate, Rhythm, Other (port in place to right chest) Respiratory: Positive for: Normal Breath Sounds. Negative for: Accessory Muscle Use, Respiratory Distress Gastrointestinal/Abdominal: Positive for: Normal Exam, Soft. Negative for: Tenderness Extremity: Positive for: Normal ROM Neurologic/Psych: Positive for: Alert, monogram operator II-XII (grossly intact), Oriented (x 3) - Laboratory Results Result Diagrams: 06/18/18 10:29 06/15/18 04:10 - ECG O2 Sat by Pulse Oximetry: 95 (RA) Pulse Ox Interpretation: Normal Medical Decision Making Medical Decision Making: Time: 1553 Initial Impression: abnormal labs Initial Plan: --Type and screen --VBG --EKG --CMP --Lipase --CBC with differential --PT / PTT --CXR --Urinalysis Pt case discussed with PMD and to be Admitted to Dr. Henderson. Labs sent and will start transfusion from the ED. Scribe Attestation: Documented by Bibi Forrester, acting as a scribe for Tena Horta MD. Provider Scribe Attestation: All medical record entries made by the Scribe were at my direction and personally dictated by me. I have reviewed the chart and agree that the record accurately reflects my personal performance of the history, physical exam, medical decision making, and the department course for this patient. I have also personally directed, reviewed, and agree with the discharge instructions and disposition. Disposition - Clinical Impression Clinical Impression: LINO (acute kidney injury), Bladder cancer, Malignant neoplasm metastatic from bladder, Anemia - Patient ED Disposition Is Patient to be Admitted: Yes - Disposition Disposition Time: 16:00 Condition: FAIR
[2018-06-15 17:04] LABS: URINE BACTERIA MANY (<OCC); URINE HYALINE CAST >20 /hpf (0-2)
[2018-06-15 17:05] LABS: GRANULAR CAST 16 /lpf (0-1)
[2018-06-15 18:32] LABS: PARTIAL THROMBOPLASTIN TIME 30.6 Seconds (25.6-37.1)
[2018-06-15] MEDS ORDERED: Morphine 4 MG/ML VIAL ONE (18:46)
[2018-06-15 19:04] LABS: BANDS 2 % (0-2); BASOPHIL 1 % (0-2); LYMPHOCYTE 14 % (20-50); MONOCYTE 4 % (0-10); MYELOCYTE 1 % (0-0); NEUTROPHIL 77 % (42-75); REACTIVE LYMPHOCYTES 1 % (0-0); TOTAL CELLS COUNTED 100
[2018-06-15 19:11] LABS: PLATELET ESTIMATE SLIGHTLY DECREASED (NORMAL)
[2018-06-15 19:12] LABS: ANISOCYTOSIS MODERATE; HYPOCHROMIC SLIGHT; OVALOCYTES SLIGHT; POIKILOCYTOSIS MODERATE; POLYCHROMIC SLIGHT; TOXIC GRANULATION PRESENT
[2018-06-15] MEDS ORDERED: oxyCODONE 10 mg Immediate Release Tab PO PRN (20:56)
[2018-06-15] MEDS ORDERED: oxyCODONE 20 mg ER Tab (oxyCONTIN) PO ONE (21:55)
[2018-06-15] MEDS: oxyCODONE 20 mg ER Tab (oxyCONTIN) PO SCH (22:11)
[2018-06-16] MEDS: Docusate-Senna 50 mg-8.6 mg Tab PO SCH ×4 (00:13→22:45)
--- NOTE | 2018-06-16 08:01 | CARD ---
APPROVED REPORT Date of service: 06/15/2018 EKG Measurement Heart [id number] <Conclusion> Normal sinus rhythm. Normal Electrocardiogram
--- NOTE | 2018-06-16 08:35 | PN ---
DATE: 06/16/2018 SUBJECTIVE: The patient was seen and examined. Interim events noted. The patient remains in Transitional Care Unit. The patient feels okay. The patient is ambulatory. Denies any specific complaint of chest pain or shortness of breath. No urinary symptoms. PHYSICAL EXAMINATION: GENERAL: The patient is in no acute distress. VITAL SIGNS: Stable. HEART: S1, S2, normal and regular. LUNGS: Good bilateral air exchange. ABDOMEN: Soft, nontender. EXTREMITIES: No edema. No calf swelling. No tenderness. No acute ischemia. CASH CONTROLLER: Essentially unchanged. DIAGNOSTIC DATA: Available diagnostic data reviewed. Overall, the patient's general medical condition is stable. PLAN: As ordered. Vinay Henderson MD
[2018-06-16] MEDS ORDERED: oxyCODONE 20 mg ER Tab (oxyCONTIN) PO ONE (08:48)
[2018-06-16] MEDS: oxyCODONE 20 mg ER Tab (oxyCONTIN) PO SCH ×2 (08:51→21:18)
--- NOTE | 2018-06-16 08:52 | PN ---
DATE: 06/15/2018 SUBJECTIVE: The patient was seen and examined. Interim events noted. The patient remains in transitional care unit. Family has decided against hospice care. The patient is sleeping, arousable, chronically sick looking, complains of pain that is controlled with current pain management. PHYSICAL EXAMINATION: GENERAL: The patient is in no acute distress. VITAL SIGNS: Stable. Physical exam is essentially unchanged. DIAGNOSTIC DATA: Available diagnostic data reviewed. ASSESSMENT AND PLAN: Overall, the patient's general medical condition is hemodynamically stable, but long term care administrator prognosis remains poor. Plan as ordered. Vinay Henderson MD
[2018-06-16] MEDS: Carbamide Peroxide OTIC SOLUTION AU SCH (08:55)
--- NOTE | 2018-06-16 10:15 | CP.PCM.HP ---
<Sultan Shelly - Last Filed: 06/16/18 13:40> History of Present Illness - History of Present Illness History of Present Illness: 78 y/o male w/ PMHX of Bladder CA with BL nephrostomy tubes, recently treated for UTI + for VRE E.Coli , Acute Kidney Injury secondary to post obstructive uropathy, was receiving PT in TCU for gait and balance strength. Patient was sent to ED from TCU due to anemia and weakness. Patient received 1 unit of prbc in ED and admitted for further management of anemia and weakness. 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 Denies chest pain, dyspnea or dizziness. Urologist: Dr. Dewey Nehrologist: Dr. Wesley Oncologist: Dr. Brewer fmhx: breast cancer soc: denies smoking, alcohol, illicit drugs lives with son surg: nephrostomy tubes with urine drain x 2 Medications: reviewed Allergy : aspirin Present on Admission - Present on Admission Any Indicators Present on Admission: Yes Review of Systems - Review of Systems All systems: reviewed and no additional remarkable complaints except Past Patient History - Infectious Disease Hx of Infectious Diseases: None - Past Medical History & Family History Past Medical History?: Yes - Past Social History Alcohol: None Drugs: Denies - CARDIAC Hx Peripheral Edema: Yes (BLE) - PULMONARY Hx Respiratory Disorders: No - NEUROLOGICAL Hx Neurological Disorder: No - HEENT Hx HEENT Problems: No - RENAL Hx Chronic Kidney Disease: No - ENDOCRINE/METABOLIC Hx Diabetes Mellitus Type 2: Yes - HEMATOLOGICAL/ONCOLOGICAL Hx Anemia: Yes Hx Human Immunodeficiency Virus (HIV): No - INTEGUMENTARY Hx Dermatological Problems: No - MUSCULOSKELETAL/RHEUMATOLOGICAL Hx Falls: No - GASTROINTESTINAL Hx Gastrointestinal Disorders: No Other/Comment: TURBT - GENITOURINARY/GYNECOLOGICAL Hx Genitourinary Disorders: Yes 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) Other/Comment: B/L Nephrostomy tubes; HX OBSTRUCTIVE UROPATHY - PSYCHIATRIC Hx Depression: Yes - SURGICAL HISTORY Hx Herniorrhaphy: Yes - ANESTHESIA Hx Anesthesia: Yes Hx Anesthesia Reactions: No Hx Malignant Hyperthermia: No Meds Allergies/Adverse Reactions: Allergies Allergy/AdvReac Type Severity Reaction Status Date / Time aspirin Allergy DIZZINESS Verified 05/30/18 17:51 Physical Exam - Constitutional Appears: Non-toxic, No Acute Distress, Chronically Ill - Head Exam Head Exam: NORMAL INSPECTION - Eye Exam Eye Exam: EOMI, Normal appearance, PERRL - ENT Exam ENT Exam: Mucous Membranes Moist - Neck Exam Neck exam: Positive for: Normal Inspection - Respiratory Exam Respiratory Exam: Clear to Auscultation Bilateral, NORMAL BREATHING PATTERN. absent: Rhonchi, Wheezes - Cardiovascular Exam Cardiovascular Exam: REGULAR RHYTHM, RRR, +S1, +S2 - GI/Abdominal Exam GI & Abdominal Exam: Normal Bowel Sounds, Soft. absent: Tenderness - Extremities Exam Extremities exam: Positive for: normal inspection. Negative for: calf tenderness, pedal edema - Neurological Exam Neurological exam: Alert - Psychiatric Exam Psychiatric exam: Depressed - Skin Skin Exam: Normal Color, Warm Results - Vital Signs Recent Vital Signs: Last Vital Signs Temp 97 F L 06/16/18 07:39 Pulse 90 06/16/18 08:57 Resp 19 06/16/18 08:57 BP 106/83 06/16/18 08:57 Pulse Ox 97 06/16/18 08:57 - Labs Result Diagrams: 06/16/18 10:43 06/15/18 04:10 Labs: Laboratory Results - last 24 hr 06/15/18 06/15/18 06/15/18 04:10 04:10 04:10 WBC 5.6 RBC 2.36 L Hgb 7.6 L Hct 22.4 L MCV 94.7 H MCH 32.2 H MCHC 34.0 RDW 18.5 H Plt Count 116 L MPV 6.7 L Neut % (Auto) 80.3 H Lymph % (Auto) 9.5 L Yell % (Auto) 8.0 Eos % (Auto) 1.7 Baso % (Auto) 0.5 Neut # (Auto) 4.5 Lymph # (Auto) 0.5 L Yell # (Auto) 0.5 Eos # (Auto) 0.1 Baso # (Auto) 0.0 Neutrophils % (Manual) 77 H Band Neutrophils % 2 Lymphocytes % (Manual) 14 L Reactive Lymphs % 1 H Monocytes % (Manual) 4 Basophils % (Manual) 1 Myelocytes % 1 H Toxic Granulation Present Platelet Estimate Slightly decreased L Polychromasia Slight Hypochromasia (manual) Slight Poikilocytosis (manual Moderate Anisocytosis (manual) Moderate Ovalocytes Slight PT 16.4 H INR 1.5 APTT 30.6 pO2 VBG pH VBG pCO2 VBG HCO3 VBG Total CO2 VBG O2 Sat (Calc) VBG Base Excess VBG Potassium Glucose Lactate FiO2 Sodium 140 Potassium 3.7 Chloride 110 H Carbon Dioxide 23 Anion Gap 11 BUN 21 H Creatinine 1.6 H Est GFR ( Amer) 51 Est GFR (Non-Af Amer) 42 Random Glucose 126 H Calcium 8.0 L Total Bilirubin 0.5 AST 35 ALT 39 Alkaline Phosphatase 1126 H Total Protein 6.8 Albumin 3.0 L Globulin 3.8 Albumin/Globulin Ratio 0.8 L Lipase < 10 L Venous Blood Potassium Urine Color Urine Clarity Urine pH Ur Specific [place] Urine Protein Urine Glucose (UA) Urine Ketones Urine Blood Urine Nitrate Urine Bilirubin Urine Urobilinogen Ur Leukocyte Esterase Urine RBC (Auto) Urine Microscopic WBC Ur Squamous Epith Cells Urine Bacteria Hyaline Casts Granular Casts (Auto) Blood Type Antibody Screen Crossmatch BBK History Checked 06/15/18 06/15/18 06/15/18 04:10 16:11 16:57 WBC RBC Hgb Hct MCV MCH MCHC RDW Plt Count MPV Neut % (Auto) Lymph % (Auto) Yell % (Auto) Eos % (Auto) Baso % (Auto) Neut # (Auto) Lymph # (Auto) Yell # (Auto) Eos # (Auto) Baso # (Auto) Neutrophils % (Manual) Band Neutrophils % Lymphocytes % (Manual) Reactive Lymphs % Monocytes % (Manual) Basophils % (Manual) Myelocytes % Toxic Granulation Platelet Estimate Polychromasia Hypochromasia (manual) Poikilocytosis (manual Anisocytosis (manual) Ovalocytes PT INR APTT pO2 34 VBG pH 7.36 VBG pCO2 42 VBG HCO3 22.6 VBG Total CO2 25.0 VBG O2 Sat (Calc) 69.7 H VBG Base Excess -1.8 L VBG Potassium 3.7 Glucose 126 H Lactate 1.0 FiO2 21.0 Sodium 140.0 Potassium Chloride 109.0 H Carbon Dioxide Anion Gap BUN Creatinine Est GFR ( Amer) Est GFR (Non-Af Amer) Random Glucose Calcium Total Bilirubin AST ALT Alkaline Phosphatase Total Protein Albumin Globulin Albumin/Globulin Ratio Lipase Venous Blood Potassium 3.7 Urine Color Marybeth Urine Clarity Turbid Urine pH 5.0 Ur Specific [place] 1.019 Urine Protein 100 Urine Glucose (UA) Negative Urine Ketones Negative Urine Blood Small Urine Nitrate Negative Urine Bilirubin Negative Urine Urobilinogen 0.2 Ur Leukocyte Esterase Large Urine RBC (Auto) 32 H Urine Microscopic WBC 62 H Ur Squamous Epith Cells 2 Urine Bacteria Many H Hyaline Casts >20 H Granular Casts (Auto) 16 Blood Type B POSITIVE Antibody Screen Negative Crossmatch See Detail BBK History Checked Patient has bt Assessment & Plan - Assessment and Plan (Free Text) Assessment: 78 y/o male w/ PMHX of Bladder CA with BL nephrostomy tubes, recently treated for UTI + for VRE E.Coli , Acute Kidney Injury secondary to post obstructive uropathy admitted due to anemia and weakness. Plan: H&H 8.4/24.0 s/p 1 unit of prbc Hem/onc Dr. Brewer on board continue with pain management PT/OT continue with home medications Patient d/w Dr. Beatriz Bravo, pgy-2 <Vinay Henderson - Last Filed: 06/17/18 10:19> Results - Vital Signs Recent Vital Signs: Last Vital Signs Temp 97.5 F L 06/17/18 08:11 Pulse 78 06/17/18 08:11 Resp 19 06/17/18 08:11 BP 109/53 L 06/17/18 08:11 Pulse Ox 99 06/17/18 08:11 - Labs Result Diagrams: 06/16/18 10:43 06/15/18 04:10 Labs: Laboratory Results - last 24 hr 06/16/18 10:43 WBC 5.5 RBC 2.61 L Hgb 8.4 L Hct 24.0 L MCV 91.7 D MCH 32.0 H MCHC 34.9 RDW 19.4 H Plt Count 105 L Assessment & Plan - Assessment and Plan (Free Text) Assessment: Patient was personally seen and examined by me in rounds with residents. Available labs and diagnostic data reviewed. Case, Patient's condition and management plan discussed with residents in rounds. Agree with resident's progress note. Plan: As ordered.
[2018-06-16 11:03] LABS: HEMOGLOBIN 8.4 g/dL (12.0-18.0); MEAN CELL VOLUME 91.7 fl (80.0-94.0); MEAN CORPUSCULAR HGB CONC 34.9 g/dL (33.0-37.0); RBC 2.61 Mil/uL (4.40-5.90); RED CELL DISTRIBUTION WIDTH 19.4 % (11.5-14.5); WHITE BLOOD COUNT 5.5 K/uL (4.8-10.8)
[2018-06-16] MEDS: oxyCODONE 5 mg Immediate Release Tab PO PRN (12:05)
[2018-06-17] MEDS: oxyCODONE 5 mg Immediate Release Tab PO PRN ×2 (01:44→05:28)
--- NOTE | 2018-06-17 07:56 | CP.PCM.PN ---
<[place] City[place] - Last Filed: 06/17/18 08:14> Subjective - Date & Time of Evaluation Date of Evaluation: 06/17/18 Time of Evaluation: 07:15 - Subjective Subjective: Patient seen and examined this AM with Dr. Henderson. No acute overnight events. Denies chest pain, dyspnea, headache or dizziness. Patient reports he had difficulty with sleeping last night and prefers a single room. No other complaints. Objective - Vital Signs/Intake and Output Vital Signs (last 24 hours): Temp Pulse Resp BP Pulse Ox 98.1 F 97 H 19 104/59 L 97 06/17/18 00:00 06/17/18 00:00 06/17/18 00:00 06/17/18 00:00 06/17/18 00:00 - Medications Medications: Current Medications Alprazolam (Xanax) 0.25 mg PO Q6 PRN PRN Reason: Anxiety Stop: 06/22/18 22:01 Last Admin: 06/16/18 09:22 Dose: 0.25 mg Bupropion HCl (Wellbutrin) 75 mg PO DAILY [facility] Last Admin: 06/16/18 08:53 Dose: 75 mg Carbamide Peroxide (Debrox Ear Drops) 5 drop AU BID [facility] Last Admin: 06/16/18 08:55 Dose: 5 drop Lactulose (Enulose) 20 gm PO DAILY [facility] Last Admin: 06/16/18 08:54 Dose: 20 gm Ondansetron HCl (Zofran Inj) 4 mg IVP Q6 PRN PRN Reason: Nausea/Vomiting Last Admin: 06/16/18 09:16 Dose: 4 mg Oxycodone HCl (Oxycontin Extended Release Tab) 20 mg PO Q12 [facility] Last Admin: 06/16/18 21:18 Dose: 20 mg Oxycodone HCl (Oxycodone Immediate Release Tab) 10 mg PO Q4 PRN PRN Reason: Pain, severe (8-10) Senna/Docusate Sodium (Senokot S 50 Mg-8.6 Mg) 1 tab PO HS [facility] Last Admin: 06/16/18 22:45 Dose: 1 tab Tamsulosin HCl (Flomax) 0.4 mg PO HS [facility] Last Admin: 06/16/18 22:45 Dose: 0.4 mg - Labs Labs: 06/16/18 10:43 06/15/18 04:10 PT 16.4 Seconds (9.8-13.1) H 06/15/18 04:10 INR 1.5 06/15/18 04:10 APTT 30.6 Seconds (25.6-37.1) 06/15/18 04:10 - Constitutional Appears: No Acute Distress, Chronically Ill - Head Exam Head Exam: NORMAL INSPECTION - Eye Exam Eye Exam: Normal appearance - ENT Exam ENT Exam: Mucous Membranes Moist - Respiratory Exam Respiratory Exam: Clear to Ausculation Bilateral, NORMAL BREATHING PATTERN. absent: Rhonchi, Wheezes - Cardiovascular Exam Cardiovascular Exam: REGULAR RHYTHM, +S1, +S2 - GI/Abdominal Exam GI & Abdominal Exam: Soft, Normal Bowel Sounds. absent: Tenderness - Neurological Exam Neurological Exam: Alert, Awake, Oriented x3 - Psychiatric Exam Psychiatric exam: Normal Affect, Normal Mood - Skin Skin Exam: Normal Color, Warm Assessment and Plan - Assessment and Plan (Free Text) Assessment: Assessment: 78 y/o male w/ PMHX of Bladder CA with BL nephrostomy tubes, recently treated for UTI + for VRE E.Coli , Acute Kidney Injury secondary to post obstructive u ropathy admitted due to anemia and weakness. Plan: H&H 8.4/24.0 s/p 1 unit of prbc yesterday. Hem/onc Dr. Brewer on board continue with pain management PT/OT continue with home medications Patient d/w Dr. Beatriz Bravo, pgy-2 <Vinay Henderson - Last Filed: 06/17/18 10:17> Objective - Vital Signs/Intake and Output Vital Signs (last 24 hours): Temp Pulse Resp BP Pulse Ox 97.5 F L 78 19 109/53 L 99 06/17/18 08:11 06/17/18 08:11 06/17/18 08:11 06/17/18 08:11 06/17/18 08:11 - Medications Medications: Current Medications Alprazolam (Xanax) 0.25 mg PO Q6 PRN PRN Reason: Anxiety Stop: 06/22/18 22:01 Last Admin: 06/16/18 09:22 Dose: 0.25 mg Bupropion HCl (Wellbutrin) 75 mg PO DAILY [facility] Last Admin: 06/17/18 09:38 Dose: 75 mg Carbamide Peroxide (Debrox Ear Drops) 5 drop AU BID [facility] Last Admin: 06/16/18 08:55 Dose: 5 drop Lactulose (Enulose) 20 gm PO DAILY [facility] Last Admin: 06/17/18 09:38 Dose: 20 gm Ondansetron HCl (Zofran Inj) 4 mg IVP Q6 PRN PRN Reason: Nausea/Vomiting Last Admin: 06/16/18 09:16 Dose: 4 mg Oxycodone HCl (Oxycontin Extended Release Tab) 20 mg PO Q12 [facility] Last Admin: 06/17/18 09:37 Dose: 20 mg Oxycodone HCl (Oxycodone Immediate Release Tab) 10 mg PO Q4 PRN PRN Reason: Pain, severe (8-10) Senna/Docusate Sodium (Senokot S 50 Mg-8.6 Mg) 1 tab PO [facility] Last Admin: 06/16/18 22:45 Dose: 1 tab Tamsulosin HCl (Flomax) 0.4 mg PO [facility] Last Admin: 06/16/18 22:45 Dose: 0.4 mg - Labs Labs: 06/16/18 10:43 06/15/18 04:10 PT 16.4 Seconds (9.8-13.1) H 06/15/18 04:10 INR 1.5 06/15/18 04:10 APTT 30.6 Seconds (25.6-37.1) 06/15/18 04:10 Assessment and Plan - Assessment and Plan (Free Text) Assessment: Patient was personally seen and examined by me in rounds with residents. Available labs and diagnostic data reviewed. Case, Patient's condition and management plan discussed with residents in rounds. Agree with resident's progress note. Plan: As ordered.
[2018-06-17] MEDS: oxyCODONE 20 mg ER Tab (oxyCONTIN) PO SCH ×2 (09:37→21:44)
[2018-06-17] MEDS: oxyCODONE 10 mg Immediate Release Tab PO PRN ×2 (10:37→15:19)
[2018-06-17] MEDS: Carbamide Peroxide OTIC SOLUTION AU SCH ×2 (10:40→17:23)
--- NOTE | 2018-06-17 11:58 | CP.PCM.CON ---
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 He has been receiving chemotherapy with carboplatin and gemcitabine. He recently completed radiotherapy for pain control. He notes to continued back pain. He continues to have a poor appetite. He denies N/V/D. Overall he continues to clinically declined but family has deferred hospice. Past medical history: DM, urothelial cancer Past surgical history: Hernia repair Family history: Denies hematologic and oncologic problems Social history: Former tobacco, denies alcohol, and illicit drug use. Allergies: Aspirin Review of systems: All remaining review of systems including HEENT, cardiovascular, respiratory, gastrointestinal, genitourinary, musculoskeletal, dermatologic, neurologic, and psychiatric are negative unless mentioned in the HPI. Past Patient History - Infectious Disease Hx of Infectious Diseases: None - Past Medical History & Family History Past Medical History?: Yes - Past Social History Alcohol: None Drugs: Denies - CARDIAC Hx Peripheral Edema: Yes (BLE) - PULMONARY Hx Respiratory Disorders: No - NEUROLOGICAL Hx Neurological Disorder: No - HEENT Hx HEENT Problems: No - RENAL Hx Chronic Kidney Disease: No - ENDOCRINE/METABOLIC Hx Diabetes Mellitus Type 2: Yes - HEMATOLOGICAL/ONCOLOGICAL Hx Anemia: Yes Hx Human Immunodeficiency Virus (HIV): No - INTEGUMENTARY Hx Dermatological Problems: No - MUSCULOSKELETAL/RHEUMATOLOGICAL Hx Falls: No - GASTROINTESTINAL Hx Gastrointestinal Disorders: No Other/Comment: TURBT - GENITOURINARY/GYNECOLOGICAL Hx Genitourinary Disorders: Yes 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) Other/Comment: B/L Nephrostomy tubes; HX OBSTRUCTIVE UROPATHY - PSYCHIATRIC Hx Depression: Yes - SURGICAL HISTORY Hx Herniorrhaphy: Yes - ANESTHESIA Hx Anesthesia: Yes Hx Anesthesia Reactions: No Hx Malignant Hyperthermia: No Meds Allergies/Adverse Reactions: Allergies Allergy/AdvReac Type Severity Reaction Status Date / Time aspirin Allergy DIZZINESS Verified 05/30/18 17:51 - Medications Medications: Current Medications Alprazolam (Xanax) 0.25 mg PO Q6 PRN PRN Reason: Anxiety Stop: 06/22/18 22:01 Last Admin: 06/16/18 09:22 Dose: 0.25 mg Bupropion HCl (Wellbutrin) 75 mg PO DAILY [facility] Last Admin: 06/17/18 09:38 Dose: 75 mg Carbamide Peroxide (Debrox Ear Drops) 5 drop AU BID [facility] Last Admin: 06/17/18 10:40 Dose: Not Given Lactulose (Enulose) 20 gm PO DAILY [facility] Last Admin: 06/17/18 09:38 Dose: 20 gm Lidocaine (Lidoderm) 1 ea TD DAILY [facility] Ondansetron HCl (Zofran Inj) 4 mg IVP Q6 PRN PRN Reason: Nausea/Vomiting Last Admin: 06/16/18 09:16 Dose: 4 mg Oxycodone HCl (Oxycontin Extended Release Tab) 20 mg PO Q12 [facility] Last Admin: 06/17/18 09:37 Dose: 20 mg Oxycodone HCl (Oxycodone Immediate Release Tab) 10 mg PO Q4 PRN PRN Reason: Pain, severe (8-10) Last Admin: 06/17/18 10:37 Dose: 10 mg Senna/Docusate Sodium (Senokot S 50 Mg-8.6 Mg) 1 tab PO [facility] Last Admin: 06/16/18 22:45 Dose: 1 tab Tamsulosin HCl (Flomax) 0.4 mg PO [facility] Last Admin: 06/16/18 22:45 Dose: 0.4 mg Physical Exam - Constitutional Appears: Cachectic - Head Exam Head Exam: ATRAUMATIC - Eye Exam Eye Exam: Normal appearance - ENT Exam ENT Exam: Mucous Membranes Dry - Respiratory Exam Respiratory Exam: NORMAL BREATHING PATTERN - Cardiovascular Exam Cardiovascular Exam: +S1, +S2 - GI/Abdominal Exam GI & Abdominal Exam: Normal Bowel Sounds - Extremities Exam Extremities exam: Positive for: normal inspection - Psychiatric Exam Psychiatric exam: Depressed - Skin Skin Exam: Warm Results - Vital Signs Recent Vital Signs: Last Vital Signs Temp 97.5 F L 06/17/18 08:11 Pulse 78 06/17/18 08:11 Resp 19 06/17/18 08:11 BP 109/53 L 06/17/18 08:11 Pulse Ox 99 06/17/18 08:11 - Labs Result Diagrams: 06/16/18 10:43 06/15/18 04:10 Assessment & Plan (1) Anemia Assessment and Plan: anemia of chronic disease hematuria intermittent from malignancy and nephrostomy tubes s/p 1u PRBC will give a dose of Procrit Status: Acute (2) Thrombocytopenia Assessment and Plan: mild ? recent radiation ? meds cont. to monitor Status: Acute (3) Bladder cancer Assessment and Plan: stage IV s/p palliative radiation has not received chemothearpy due to debility deferred hospice supportive care Thank you for this interesting consult. Status: Chronic Priority: High
[2018-06-17] MEDS ORDERED: Epoetin Alfa 20000 UNIT/ML Inj SC ONE (12:03)
[2018-06-17] MEDS: Lidocaine 5% Patch TD SCH (14:43)
[2018-06-17] MEDS: Docusate-Senna 50 mg-8.6 mg Tab PO SCH (21:45)
[2018-06-18] MEDS: oxyCODONE 10 mg Immediate Release Tab PO PRN ×4 (01:21→19:41)
[2018-06-18] MEDS: oxyCODONE 20 mg ER Tab (oxyCONTIN) PO SCH ×2 (08:37→21:33)
[2018-06-18] MEDS: Lidocaine 5% Patch TD SCH (08:38)
[2018-06-18] MEDS: Carbamide Peroxide OTIC SOLUTION AU SCH ×2 (09:00→16:21)
--- NOTE | 2018-06-18 09:00 | PN ---
DATE: 06/18/2018 SUBJECTIVE: The patient seen and examined. Interim events noted. Consults noted and appreciated. Hematology/oncology consult and intervention noted and appreciated. The patient remains in regular medical floor. Still complains of significant amount of pain. Her pain medication helps, but not enough. PHYSICAL EXAMINATION: GENERAL: The patient is awake, responsive, does not seem to be in any acute distress or any acute pain. VITAL SIGNS: Stable. HEART: S1, S2 normal and regular. LUNGS: Good bilateral air exchange. ABDOMEN: Soft, nontender. EXTREMITIES: No edema, no calf swelling, no tenderness, no acute ischemia. CENTRAL NERVOUS SYSTEM: Essentially unchanged. EXAM: The patient has bilateral nephrostomy tube which is in good position and draining without any acute local complication. DIAGNOSTIC DATA: Available diagnostic data reviewed. ASSESSMENT AND PLAN: Overall, the patient's general medical condition, although hemodynamically stable. Long-term prognosis remains poor due to metastatic underlying cancer. Plan as ordered. Vinay Henderson MD
[2018-06-18 11:34] LABS: HEMOGLOBIN 8.6 g/dL (12.0-18.0); MEAN CELL VOLUME 92.9 fl (80.0-94.0); MEAN CORPUSCULAR HEMOGLOBIN 31.4 pg (27.0-31.0); MEAN CORPUSCULAR HGB CONC 33.7 g/dL (33.0-37.0); RBC 2.75 Mil/uL (4.40-5.90); RED CELL DISTRIBUTION WIDTH 19.1 % (11.5-14.5); WHITE BLOOD COUNT 5.2 K/uL (4.8-10.8)
[2018-06-18] MEDS: Docusate-Senna 50 mg-8.6 mg Tab PO SCH (21:34)
[2018-06-19] MEDS: oxyCODONE 10 mg Immediate Release Tab PO PRN ×4 (04:59→18:00)
[2018-06-19 07:23] LABS: MEAN CELL VOLUME 93.8 fl (80.0-94.0); MEAN CORPUSCULAR HEMOGLOBIN 31.2 pg (27.0-31.0); MEAN CORPUSCULAR HGB CONC 33.3 g/dL (33.0-37.0); RBC 2.64 Mil/uL (4.40-5.90); RED CELL DISTRIBUTION WIDTH 19.1 % (11.5-14.5); WHITE BLOOD COUNT 4.3 K/uL (4.8-10.8)
[2018-06-19 07:27] LABS: HEMOGLOBIN 8.3 g/dL (12.0-18.0)
[2018-06-19 07:44] LABS: ALB/GLOB RATIO 0.8 (1.0-2.1); ALBUMIN 2.9 g/dL (3.5-5.0); CALCIUM 8.5 mg/dL (8.4-10.2)
[2018-06-19] MEDS: Carbamide Peroxide OTIC SOLUTION AU SCH ×3 (08:08→21:24)
[2018-06-19] MEDS: Lidocaine 5% Patch TD SCH (08:09)
[2018-06-19] MEDS: oxyCODONE 20 mg ER Tab (oxyCONTIN) PO SCH ×2 (08:13→21:29)
--- NOTE | 2018-06-19 12:01 | PN ---
DATE: 06/19/2018 SUBJECTIVE: The patient seen and examined. Interim events noted. The patient remains in regular medical floor. Sleeping, arousable. Denies any specific complaint. No chest pain. No shortness of breath, but does have chronic pain, requiring multiple narcotic medications. PHYSICAL EXAMINATION: GENERAL: The patient is in no acute distress. VITAL SIGNS: Stable. HEART: S1 and S2, normal and regular. LUNGS: Good bilateral air exchange. ABDOMEN: Soft and nontender. EXTREMITIES: No edema. No calf swelling. No tenderness. No acute ischemia. ANESTHESIOLOGIST PHYSICIAN: Exam is essentially unchanged. Bilateral nephrostomy tube is in good position and draining clear urine. DIAGNOSTIC DATA: Available diagnostic data reviewed. Hemoglobin is 8.6. ASSESSMENT AND PLAN: Overall, the patient is clinically stable,although long-term prognosis remains poor due to underlying advanced cancer. Plan as ordered. Vinay Henderson MD
[2018-06-19] MEDS ORDERED: Potassium Chloride 20 mEq ER Tab PO ONE (15:22)
[2018-06-19] MEDS: Docusate-Senna 50 mg-8.6 mg Tab PO SCH (21:26)
--- NOTE | 2018-06-19 22:32 | CP.PCM.PN ---
Subjective - Date & Time of Evaluation Date of Evaluation: 06/18/18 Time of Evaluation: 16:00 - Subjective Subjective: More alert today Objective - Vital Signs/Intake and Output Vital Signs (last 24 hours): Temp Pulse Resp BP Pulse Ox 98.9 F 91 H 18 104/60 97 06/19/18 16:05 06/19/18 16:05 06/19/18 16:05 06/19/18 16:05 06/19/18 16:05 Intake and Output: 06/19/18 06/20/18 18:59 06:59 Output Total 1075 Balance -1075 - Medications Medications: Current Medications Alprazolam (Xanax) 0.25 mg PO Q6 PRN PRN Reason: Anxiety Stop: 06/22/18 22:01 Last Admin: 06/18/18 23:59 Dose: 0.25 mg Bupropion HCl (Wellbutrin) 75 mg PO DAILY [facility] Last Admin: 06/19/18 08:08 Dose: 75 mg Carbamide Peroxide (Debrox Ear Drops) 5 drop AU BID [facility] Last Admin: 06/19/18 21:24 Dose: 5 drop Lactulose (Enulose) 20 gm PO DAILY [facility] Last Admin: 06/19/18 08:08 Dose: 20 gm Lidocaine (Lidoderm) 1 ea TD DAILY [facility] Last Admin: 06/19/18 08:09 Dose: 1 ea Ondansetron HCl (Zofran Inj) 4 mg IVP Q6 PRN PRN Reason: Nausea/Vomiting Last Admin: 06/16/18 09:16 Dose: 4 mg Oxycodone HCl (Oxycontin Extended Release Tab) 20 mg PO Q12 [facility] Last Admin: 06/19/18 21:29 Dose: 20 mg Oxycodone HCl (Oxycodone Immediate Release Tab) 10 mg PO Q4 PRN PRN Reason: Pain, severe (8-10) Last Admin: 06/19/18 18:00 Dose: 10 mg Senna/Docusate Sodium (Senokot S 50 Mg-8.6 Mg) 1 tab PO HS [facility] Last Admin: 06/19/18 21:26 Dose: 1 tab Tamsulosin HCl (Flomax) 0.4 mg PO HS [facility] Last Admin: 06/19/18 21:26 Dose: 0.4 mg - Labs Labs: 06/19/18 05:20 06/19/18 05:20 PT 16.4 Seconds (9.8-13.1) H 06/15/18 04:10 INR 1.5 06/15/18 04:10 APTT 30.6 Seconds (25.6-37.1) 06/15/18 04:10 - Head Exam Head Exam: ATRAUMATIC - Eye Exam Eye Exam: Normal appearance - ENT Exam ENT Exam: Mucous Membranes Dry - Respiratory Exam Respiratory Exam: NORMAL BREATHING PATTERN - Cardiovascular Exam Cardiovascular Exam: +S1, +S2 - GI/Abdominal Exam GI & Abdominal Exam: Normal Bowel Sounds Assessment and Plan (1) Anemia Assessment & Plan: anemia of chronic disease hematuria intermittent from malignancy and nephrostomy tubes s/p 1u PRBC s/p Procrit Status: Acute (2) Thrombocytopenia Assessment & Plan: mild ? recent radiation ? meds cont. to monitor Status: Acute (3) Bladder cancer Assessment & Plan: stage IV s/p palliative radiation has not received chemothearpy due to debility deferred hospice supportive care Status: Chronic
--- NOTE | 2018-06-19 22:33 | CP.PCM.PN ---
Subjective - Date & Time of Evaluation Date of Evaluation: 06/19/18 Time of Evaluation: 18:00 - Subjective Subjective: Feels weak Objective - Vital Signs/Intake and Output Vital Signs (last 24 hours): Temp Pulse Resp BP Pulse Ox 98.9 F 91 H 18 104/60 97 06/19/18 16:05 06/19/18 16:05 06/19/18 16:05 06/19/18 16:05 06/19/18 16:05 Intake and Output: 06/19/18 06/20/18 18:59 06:59 Output Total 1075 Balance -1075 - Medications Medications: Current Medications Alprazolam (Xanax) 0.25 mg PO Q6 PRN PRN Reason: Anxiety Stop: 06/22/18 22:01 Last Admin: 06/18/18 23:59 Dose: 0.25 mg Bupropion HCl (Wellbutrin) 75 mg PO DAILY [facility] Last Admin: 06/19/18 08:08 Dose: 75 mg Carbamide Peroxide (Debrox Ear Drops) 5 drop AU BID [facility] Last Admin: 06/19/18 21:24 Dose: 5 drop Lactulose (Enulose) 20 gm PO DAILY [facility] Last Admin: 06/19/18 08:08 Dose: 20 gm Lidocaine (Lidoderm) 1 ea TD DAILY [facility] Last Admin: 06/19/18 08:09 Dose: 1 ea Ondansetron HCl (Zofran Inj) 4 mg IVP Q6 PRN PRN Reason: Nausea/Vomiting Last Admin: 06/16/18 09:16 Dose: 4 mg Oxycodone HCl (Oxycontin Extended Release Tab) 20 mg PO Q12 [facility] Last Admin: 06/19/18 21:29 Dose: 20 mg Oxycodone HCl (Oxycodone Immediate Release Tab) 10 mg PO Q4 PRN PRN Reason: Pain, severe (8-10) Last Admin: 06/19/18 18:00 Dose: 10 mg Senna/Docusate Sodium (Senokot S 50 Mg-8.6 Mg) 1 tab PO HS [facility] Last Admin: 06/19/18 21:26 Dose: 1 tab Tamsulosin HCl (Flomax) 0.4 mg PO HS [facility] Last Admin: 06/19/18 21:26 Dose: 0.4 mg - Labs Labs: 06/19/18 05:20 06/19/18 05:20 PT 16.4 Seconds (9.8-13.1) H 06/15/18 04:10 INR 1.5 06/15/18 04:10 APTT 30.6 Seconds (25.6-37.1) 06/15/18 04:10 - Head Exam Head Exam: ATRAUMATIC - Eye Exam Eye Exam: Normal appearance - ENT Exam ENT Exam: Mucous Membranes Dry - Respiratory Exam Respiratory Exam: NORMAL BREATHING PATTERN - Cardiovascular Exam Cardiovascular Exam: +S1, +S2 - GI/Abdominal Exam GI & Abdominal Exam: Normal Bowel Sounds Assessment and Plan (1) Anemia Assessment & Plan: anemia of chronic disease hematuria intermittent from malignancy and nephrostomy tubes s/p 1u PRBC s/p Procrit Status: Acute (2) Thrombocytopenia Assessment & Plan: mild ? recent radiation ? meds cont. to monitor Status: Acute (3) Bladder cancer Assessment & Plan: stage IV s/p palliative radiation has not received chemothearpy due to debility deferred hospice supportive care Status: Chronic
[2018-06-20] MEDS: oxyCODONE 10 mg Immediate Release Tab PO PRN ×2 (01:27→15:51)
[2018-06-20] MEDS: oxyCODONE 20 mg ER Tab (oxyCONTIN) PO SCH (09:51)
[2018-06-20] MEDS: Lidocaine 5% Patch TD SCH (10:00)
[2018-06-20] MEDS: Carbamide Peroxide OTIC SOLUTION AU SCH ×2 (10:14→16:02)
--- NOTE | 2018-06-20 11:09 | PN ---
DATE: 06/20/2018 SUBJECTIVE: The patient seen and examined. Interim events noted. Consults noted and appreciated. Hematology/Oncology followup and interventions noted and appreciated. The patient remains in regular medical floor. Sleeping, sedated, arousable. Feels okay. Complains of chronic pain, controlled with current pain management. No new complaint of chest pain. No shortness of breath. PHYSICAL EXAMINATION: GENERAL: The patient is in no acute distress. VITAL SIGNS: Stable. HEART: S1 and S2, normal and regular. LUNGS: Good bilateral air exchange. ABDOMEN: Soft, nontender. EXTREMITIES: No calf swelling. No tenderness. No acute ischemia. No edema. 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 Bilateral nephrostomy tubes are in good position and draining. No sign of acute complication. DIAGNOSTIC DATA: Available diagnostic data reviewed. ASSESSMENT AND PLAN: Overall, the patient's general medical condition is stable, although long-term functional prognosis remains poor due to advanced stage for cancer. Plan as ordered. Vinay Henderson MD
[2018-06-20 12:33] LABS: BLOOD UREA NITROGEN 20 mg/dl (9-20); CALCIUM 7.8 mg/dL (8.4-10.2); GFR NON-AFRICAN AMERICAN 58
[2018-06-20] MEDS ORDERED: Potassium Chloride 20 mEq ER Tab PO ONE (14:13)
[2018-06-20 16:10] VITALS: BP 104/60; PULSE 67; RESP 18; TEMP 98.7; O2SAT 95
--- NOTE | 2018-06-29 12:22 | PQF ---
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 Please specify the cause (includes garay spected or probable cause) Such as: -- Due to neoplasm -- Due to chronic kidney disease -- Due to other chronic disease ( please clarify) -- unknown The patient's Clinical Indicators include: Anemia of chronic disease Query created by: Ailyn Gill on 06/21/2018 12:28 PM Electronically signed by: Vinay Henderson 06/29/2018 12:19 PM
== END 2018-06-20 20:00 | disposition home or self-care (01) | DRG 687 ==
LOC: H.ER 15:06 → H.ERHOLD 16:43 → H.MEDSURG1 06-16 11:29
PROVIDERS: ADMIT Internal Medicine; ATTEND Internal Medicine
PROC: 30233N1 Transfusion of Nonautologous Red Blood Cells into Peripheral Vein, Percutaneous Approach (ICD-10-PCS; principal; 2018-06-15)
DX: C67.9 Malignant neoplasm of bladder, unspecified (principal); C79.51 Secondary malignant neoplasm of bone; C77.9 Secondary and unspecified malignant neoplasm of lymph node, unspecified; N17.9 Acute kidney failure, unspecified; G89.3 Neoplasm related pain (acute) (chronic); E11.9 Type 2 diabetes mellitus without complications; N40.1 Benign prostatic hyperplasia with lower urinary tract symptoms; N13.9 Obstructive and reflux uropathy, unspecified; Z87.891 Personal history of nicotine dependence; F32.9 Major depressive disorder, single episode, unspecified; Z88.6 Allergy status to analgesic agent; R53.81 Other malaise; R31.9 Hematuria, unspecified; Z93.6 Other artificial openings of urinary tract status; D69.6 Thrombocytopenia, unspecified; D63.0 Anemia in neoplastic disease

== ENCOUNTER 2018-06-24 12:44 | Inpatient (IN) | payer MEDICARE ==
[2018-06-24 12:45] VITALS: BMI 24.1
[2018-06-24] MEDS ORDERED: Sodium Chloride 0.9% 1,000 ML IV STA (13:11)
--- NOTE | 2018-06-24 13:16 | ED PDOC ---
HPI: SOB/CHF/COPD Time Seen by Provider: 06/24/18 13:05 Chief Complaint (Nursing): Shortness Of Breath Chief Complaint (Provider): Lower back pain History Per: Patient History/Exam Limitations: no limitations Onset/Duration Of Symptoms: Days (x2) Additional Complaint(s): Patient is a 78 y/o male with past medical history of anemia, diabetes, metastatic bladder cancer, and chronic back pain, who presents to the ED complaining of lower back pain and chils, onset x2 days ago. Patient was recen tly admitted for UTI and renal failure and placement of bilateral nephrostomy tubes. Patients denies abdominal pain, vomiting, or diarrhea. Past Medical History Reviewed: Historical Data, Nursing Documentation, Vital Signs Vital Signs: Last Vital Signs Temp 98.4 F 06/24/18 12:51 Pulse 100 H 06/24/18 12:51 Resp 20 06/24/18 12:51 BP 123/68 06/24/18 12:51 Pulse Ox 94 L 06/24/18 12:51 - Medical History PMH: Anemia, Benign Prostatic Hyperplasia, Depression, Diabetes, Malignancy (advanced metastatic cancer), Peripheral Edema (BLE), Chronic Pain (Back ) Denies: HIV, Chronic Kidney Disease - Surgical History Surgical History: Hernia Repair - Family History Family History: States: Unknown Family Hx - Home Medications Home Medications: Ambulatory Orders Medication Instructions Recorded Tamsulosin [Flomax] 0.4 mg PO HS 02/12/18 Lactulose [Enulose] 20 gm PO DAILY [facility] 06/08/18 buPROPion [Wellbutrin] 75 mg PO DAILY tab 06/08/18 oxyCODONE [oxyCODONE Immediate 10 mg PO Q4 PRN tab 06/08/18 Release Tab] ALPRAZolam [Xanax] 0.25 mg PO Q6 PRN tab 06/15/18 Carbamide Peroxide [Debrox Ear 5 drop AU BID bottle 06/15/18 Drops] oxyCODONE [oxyCONTIN Extended 20 mg PO Q12 tabsr 06/15/18 Release Tab] Docusate Sodium/Sennosides A 1 tab PO HS tab 06/17/18 [Senokot S 50 MG-8.6 MG] - Allergies Allergies/Adverse Reactions: Allergies Allergy/AdvReac Type Severity Reaction Status Date / Time aspirin Allergy DIZZINESS Verified 06/24/18 12:51 Review of Systems ROS Statement: Except As Marked, All Systems Reviewed And Found Negative Constitutional: Positive for: Chills. Negative for: Fever Gastrointestinal: Negative for: Vomiting, Abdominal Pain, Diarrhea Musculoskeletal: Positive for: Back Pain Physical Exam - Reviewed Nursing Documentation Reviewed: Yes Vital Signs Reviewed: Yes - Physical Exam Appears: Positive for: Non-toxic, No Acute Distress Head Exam: Positive for: ATRAUMATIC, NORMOCEPHALIC Skin: Positive for: Rash (scaly rash lumbar area; no erythema no discharge) Eye Exam: Positive for: Normal appearance, EOMI, PERRL Neck: Positive for: Normal, Painless ROM Cardiovascular/Chest: Positive for: Regular Rate, Rhythm Respiratory: Positive for: Normal Breath Sounds. Negative for: Rales, Rhonchi, Wheezing, Respiratory Distress Gastrointestinal/Abdominal: Positive for: Normal Exam, Soft. Negative for: Tenderness Back: Positive for: Other (bilateral nephrostomy tubes draining separately into leg bags) Extremity: Positive for: Pedal Edema (1+ lower extremities bilaterally ). Negative for: Calf Tenderness, Deformity Neurologic/Psych: Positive for: Alert, Oriented. Negative for: Motor/Sensory Deficits - Laboratory Results Result Diagrams: 06/24/18 13:45 06/24/18 13:45 - ECG O2 Sat by Pulse Oximetry: 94 (RA) Pulse Ox Interpretation: Abnormal Medical Decision Making Medical Decision Making: Time: 13:10 Initial Plan: CMP CBC w/ diff Morhpine 2 mg IV fluids 100 mls/hr Blood culture Urine Culture Scribe Attestation: Documented by Justo Omer, acting as a scribe for Tres Ruiz MD. Provider Scribe Attestation: All medical record entries made by the Scribe were at my direction and personally dictated by me. I have reviewed the chart and agree that the record accurately reflects my personal performance of the history, physical exam, medical decision making, and the department course for this patient. I have also personally directed, reviewed, and agree with the discharge instructions and disposition. Disposition - Clinical Impression Clinical Impression: Complicated UTI (urinary tract infection), Back pain - Patient ED Disposition Is Patient to be Admitted: Yes - Disposition Disposition Time: 14:42 Condition: FAIR Forms: [facility] (Tajik) - Pt Status Changed To: Hospital Disposition Of: Observation - POA Present On Arrival: None
[2018-06-24 14:00] LABS: BASO % 0.3 % (0.0-2.0); EOS # 0.1 K/uL (0.0-0.7); EOS % 1.3 % (0.0-4.0); HEMOGLOBIN 9.3 g/dL (12.0-18.0); LYMPH # 0.4 K/uL (1.0-4.3); MEAN CELL VOLUME 93.4 fl (80.0-94.0); MEAN CORPUSCULAR HEMOGLOBIN 31.3 pg (27.0-31.0); MEAN CORPUSCULAR HGB CONC 33.5 g/dL (33.0-37.0); MEAN PLATELET VOLUME 7.1 fl (7.2-11.7); MONO # 0.6 K/uL (0.0-0.8); MONO % 9.2 % (0.0-10.0); NEUT # 5.1 K/uL (1.8-7.0); NEUT % 82.2 % (50.0-75.0); NRBC % 0.2 % (0.0-0.0); PLATELET COUNT 145 K/uL (130-400); RBC 2.99 Mil/uL (4.40-5.90); WHITE BLOOD COUNT 6.2 K/uL (4.8-10.8)
[2018-06-24 14:11] LABS: ALB/GLOB RATIO 0.8 (1.0-2.1); ALBUMIN 3.4 g/dL (3.5-5.0); CALCIUM 8.7 mg/dL (8.4-10.2)
[2018-06-24] MEDS ORDERED: Piperacillin/Tazobact 3.375 GM in Sodium Chloride 0.9% 100 ML IVPB STA (14:39)
[2018-06-24 14:53] LABS: ANISOCYTOSIS SLIGHT; BANDS 2 % (0-2); EOSINOPHIL 1 % (0-7); HYPOCHROMIC SLIGHT; LARGE PLATELETS PRESENT; LYMPHOCYTE 9 % (20-50); MONOCYTE 6 % (0-10); MYELOCYTE 2 % (0-0); NEUTROPHIL 80 % (42-75); OVALOCYTES SLIGHT; PLATELET ESTIMATE NORMAL (NORMAL); POIKILOCYTOSIS SLIGHT; TOTAL CELLS COUNTED 100; TOXIC GRANULATION PRESENT
--- NOTE | 2018-06-24 15:31 | CP.PCM.HP ---
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 Patient recently was treated for VRE faecium with linezolid for 10 days. He was discharged from TCU on 06/20/18. Patient reports severe lower back. Denies any chest pain, dyspnea, nausea, vomiting, fever or chills. Past medical history: DMII, urothelial cancer, VRE faecium UTI Past surgical history: Hernia repair, B/L nephrostomy tubes Family history: Denies hematologic and oncologic problems Social history: Former tobacco, denies alcohol, and illicit drug use. Allergies: Aspirin ED course: cbc: 6.2>9.3/27.9<145, CMP: BUN 41, Cr 2.5; No urinalysis available, Morphine 2 gm ivp, NS @100 cc/hr, Zosyn 3.375 gm IPVB Present on Admission - Present on Admission Any Indicators Present on Admission: No Review of Systems - Review of Systems All systems: reviewed and no additional remarkable complaints except Past Patient History - Infectious Disease Hx of Infectious Diseases: None - Past Medical History & Family History Past Medical History?: Yes - Past Social History Smoking Status: Never Smoked - CARDIAC Hx Peripheral Edema: Yes (BLE) - PULMONARY Hx Respiratory Disorders: No - NEUROLOGICAL Hx Neurological Disorder: No - HEENT Hx HEENT Problems: No - RENAL Hx Chronic Kidney Disease: No - ENDOCRINE/METABOLIC Hx Diabetes Mellitus Type 2: Yes - HEMATOLOGICAL/ONCOLOGICAL Hx Anemia: Yes Hx Human Immunodeficiency Virus (HIV): No - INTEGUMENTARY Hx Dermatological Problems: No - MUSCULOSKELETAL/RHEUMATOLOGICAL Hx Falls: No - GASTROINTESTINAL Hx Gastrointestinal Disorders: No Other/Comment: TURBT - GENITOURINARY/GYNECOLOGICAL Hx Genitourinary Disorders: Yes 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) Other/Comment: B/L Nephrostomy tubes; HX OBSTRUCTIVE UROPATHY - PSYCHIATRIC Hx Depression: Yes - SURGICAL HISTORY Hx Herniorrhaphy: Yes - ANESTHESIA Hx Anesthesia: Yes Hx Anesthesia Reactions: No Hx Malignant Hyperthermia: No Meds Allergies/Adverse Reactions: Allergies Allergy/AdvReac Type Severity Reaction Status Date / Time aspirin Allergy DIZZINESS Verified 06/24/18 12:51 Physical Exam - Constitutional Appears: Non-toxic, No Acute Distress, Cachectic, Chronically Ill - Head Exam Head Exam: NORMAL INSPECTION - Eye Exam Eye Exam: Normal appearance - ENT Exam ENT Exam: Mucous Membranes Moist - Neck Exam Neck exam: Positive for: Full Rom - Respiratory Exam Respiratory Exam: Clear to Auscultation Bilateral. absent: Rhonchi, Wheezes - Cardiovascular Exam Cardiovascular Exam: REGULAR RHYTHM, +S1, +S2 - GI/Abdominal Exam GI & Abdominal Exam: Normal Bowel Sounds, Soft. absent: Tenderness Additional comments: Nephrostomy tubes in place - Extremities Exam Extremities exam: Positive for: normal inspection - Neurological Exam Neurological exam: Alert - Psychiatric Exam Psychiatric exam: Depressed - Skin Skin Exam: Normal Color Results - Vital Signs Recent Vital Signs: Last Vital Signs Temp 98.4 F 06/24/18 12:51 Pulse 100 H 06/24/18 12:51 Resp 20 06/24/18 12:51 BP 123/68 06/24/18 12:51 Pulse Ox 94 L 06/24/18 14:43 - Labs Result Diagrams: 06/24/18 13:45 06/24/18 13:45 Labs: Laboratory Results - last 24 hr 06/24/18 06/24/18 13:45 13:45 WBC 6.2 RBC 2.99 L Hgb 9.3 L Hct 27.9 L MCV 93.4 MCH 31.3 H MCHC 33.5 RDW 19.0 H Plt Count 145 MPV 7.1 L Neut % (Auto) 82.2 H Lymph % (Auto) 7.0 L [place] % (Auto) 9.2 Eos % (Auto) 1.3 Baso % (Auto) 0.3 Neut # (Auto) 5.1 Lymph # (Auto) 0.4 L [place] # (Auto) 0.6 Eos # (Auto) 0.1 Baso # (Auto) 0.0 Neutrophils % (Manual) 80 H Band Neutrophils % 2 Lymphocytes % (Manual) 9 L Monocytes % (Manual) 6 Eosinophils % (Manual) 1 Myelocytes % 2 H Toxic Granulation Present Platelet Estimate Normal Large Platelets Present Hypochromasia (manual) Slight Poikilocytosis (manual Slight Anisocytosis (manual) Slight Ovalocytes Slight Sodium 136 Potassium 4.8 Chloride 104 Carbon Dioxide 22 Anion Gap 15 BUN 41 H Creatinine 2.5 H Est GFR ( Amer) 30 Est GFR (Non-Af Amer) 25 Random Glucose 118 H Calcium 8.7 Total Bilirubin 1.4 H AST 29 ALT 27 Alkaline Phosphatase 1210 H Total Protein 7.5 Albumin 3.4 L Globulin 4.2 H Albumin/Globulin Ratio 0.8 L Assessment & Plan - Assessment and Plan (Free Text) Assessment: 78 year old male with a history of DM, 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 Plan: Pain management afebrile, stable vitals except for HR 100 Start Linezolid 600 mg IVPB Q12 ID consult Hematology consult Resume home medications Rest of the plan as ordered Case d/w Dr. Beatriz Bravo, pgy-2 <Vinay Henderson - Last Filed: 06/25/18 11:35> Results - Vital Signs Recent Vital Signs: Last Vital Signs Temp 98.2 F 06/25/18 07:48 Pulse 83 06/25/18 07:48 Resp 19 06/25/18 07:48 BP 101/54 L 06/25/18 07:48 Pulse Ox 96 06/25/18 07:48 - Labs Result Diagrams: 06/25/18 05:30 06/25/18 05:30 Labs: Laboratory Results - last 24 hr 06/24/18 06/24/18 06/24/18 13:45 13:45 18:38 WBC 6.2 RBC 2.99 L Hgb 9.3 L Hct 27.9 L MCV 93.4 MCH 31.3 H MCHC 33.5 RDW 19.0 H Plt Count 145 MPV 7.1 L Neut % (Auto) 82.2 H Lymph % (Auto) 7.0 L [place] % (Auto) 9.2 Eos % (Auto) 1.3 Baso % (Auto) 0.3 Neut # (Auto) 5.1 Lymph # (Auto) 0.4 L [place] # (Auto) 0.6 Eos # (Auto) 0.1 Baso # (Auto) 0.0 Neutrophils % (Manual) 80 H Band Neutrophils % 2 Lymphocytes % (Manual) 9 L Monocytes % (Manual) 6 Eosinophils % (Manual) 1 Myelocytes % 2 H Toxic Granulation Present Platelet Estimate Normal Large Platelets Present Hypochromasia (manual) Slight Poikilocytosis (manual Slight Anisocytosis (manual) Slight Ovalocytes Slight Sodium 136 Potassium 4.8 Chloride 104 Carbon Dioxide 22 Anion Gap 15 BUN 41 H Creatinine 2.5 H Est GFR ( Amer) 30 Est GFR (Non-Af Amer) 25 POC Glucose (mg/dL) Random Glucose 118 H Calcium 8.7 Total Bilirubin 1.4 H AST 29 ALT 27 Alkaline Phosphatase 1210 H Total Protein 7.5 Albumin 3.4 L Globulin 4.2 H Albumin/Globulin Ratio 0.8 L Urine Color Yellow Urine Clarity Turbid Urine pH 5.0 Ur Specific [place] 1.016 Urine Protein 100 Urine Glucose (UA) Neg Urine Ketones Negative Urine Blood Small Urine Nitrate Negative Urine Bilirubin Negative Urine Urobilinogen 0.2-1.0 Ur Leukocyte Esterase Large Urine RBC (Auto) 16 H Urine Microscopic WBC 105 H Ur Squamous Epith Cells 1 Urine Bacteria Occ H Hyaline Casts 0-2 06/24/18 06/25/18 06/25/18 21:13 05:30 05:30 WBC 4.0 L RBC 2.44 L Hgb 7.5 L Hct 22.9 L MCV 94.0 MCH 30.6 MCHC 32.6 L RDW 19.0 H Plt Count 115 L D MPV Neut % (Auto) Lymph % (Auto) [place] % (Auto) Eos % (Auto) Baso % (Auto) Neut # (Auto) Lymph # (Auto) [place] # (Auto) Eos # (Auto) Baso # (Auto) Neutrophils % (Manual) Band Neutrophils % Lymphocytes % (Manual) Monocytes % (Manual) Eosinophils % (Manual) Myelocytes % Toxic Granulation Platelet Estimate Large Platelets Hypochromasia (manual) Poikilocytosis (manual Anisocytosis (manual) Ovalocytes Sodium 138 Potassium 4.4 Chloride 109 H Carbon Dioxide 24 Anion Gap 9 L BUN 40 H Creatinine 3.0 H Est GFR ( Amer) 24 Est GFR (Non-Af Amer) 20 POC Glucose (mg/dL) 126 H Random Glucose 85 Calcium 7.6 L Total Bilirubin AST ALT Alkaline Phosphatase Total Protein Albumin Globulin Albumin/Globulin Ratio Urine Color Urine Clarity Urine pH Ur Specific [place] Urine Protein Urine Glucose (UA) Urine Ketones Urine Blood Urine Nitrate Urine Bilirubin Urine Urobilinogen Ur Leukocyte Esterase Urine RBC (Auto) Urine Microscopic WBC Ur Squamous Epith Cells Urine Bacteria Hyaline Casts 06/25/18 06/25/18 05:51 10:59 WBC RBC Hgb Hct MCV MCH MCHC RDW Plt Count MPV Neut % (Auto) Lymph % (Auto) [place] % (Auto) Eos % (Auto) Baso % (Auto) Neut # (Auto) Lymph # (Auto) [place] # (Auto) Eos # (Auto) Baso # (Auto) Neutrophils % (Manual) Band Neutrophils % Lymphocytes % (Manual) Monocytes % (Manual) Eosinophils % (Manual) Myelocytes % Toxic Granulation Platelet Estimate Large Platelets Hypochromasia (manual) Poikilocytosis (manual Anisocytosis (manual) Ovalocytes Sodium Potassium Chloride Carbon Dioxide Anion Gap BUN Creatinine Est GFR ( Amer) Est GFR (Non-Af Amer) POC Glucose (mg/dL) 96 126 H Random Glucose Calcium Total Bilirubin AST ALT Alkaline Phosphatase Total Protein Albumin Globulin Albumin/Globulin Ratio Urine Color Urine Clarity Urine pH Ur Specific [place] Urine Protein Urine Glucose (UA) Urine Ketones Urine Blood Urine Nitrate Urine Bilirubin Urine Urobilinogen Ur Leukocyte Esterase Urine RBC (Auto) Urine Microscopic WBC Ur Squamous Epith Cells Urine Bacteria Hyaline Casts Assessment & Plan - Assessment and Plan (Free Text) Assessment: Patient was personally seen and examined by me in rounds with residents. Available labs and diagnostic data reviewed. Case, Patient's condition and management plan discussed with residents in rounds. Agree with resident's progress note. Plan: As ordered.
[2018-06-24] MEDS ORDERED: Pantoprazole 40 mg EC Tab PO ONE (16:06)
[2018-06-24] MEDS ORDERED: Piperacillin/Tazobact 3.375 gm Inj IVPB ONE (16:06)
[2018-06-24] MEDS: Pantoprazole 40 mg EC Tab PO SCH (16:10)
[2018-06-24] MEDS ORDERED: Linezolid 600 mg in D5W 300 ml 600 MG/300 ML BAG IVPB ONE ×2 (16:27→19:00)
[2018-06-24 19:20] LABS: SQUAMOUS EPITHIAL 1 /hpf (0-5); URINE BACTERIA OCC (<OCC); URINE BILIRUBIN NEGATIVE (NEGATIVE); URINE BLOOD SMALL (NEGATIVE); URINE CLARITY TURBID (Clear); URINE COLOR YELLOW (YELLOW); URINE GLUCOSE (UA) NEG (Normal); URINE HYALINE CAST 0-2 /hpf (0-2); URINE LEUKOCYTE ESTERASE LARGE Leu/uL (Negative); URINE PROTEIN 100 mg/dL (NEGATIVE); URINE UROBILINOGEN 0.2-1.0 mg/dL (0.2-1.0)
[2018-06-24] MEDS: Sodium Chloride 0.9% 1,000 ML IV SCH (20:55)
[2018-06-24] MEDS: oxyCODONE 20 mg ER Tab (oxyCONTIN) PO SCH (21:39)
[2018-06-25 06:54] LABS: HEMOGLOBIN 7.5 g/dL (12.0-18.0); MEAN CORPUSCULAR HEMOGLOBIN 30.6 pg (27.0-31.0); MEAN CORPUSCULAR HGB CONC 32.6 g/dL (33.0-37.0); RBC 2.44 Mil/uL (4.40-5.90)
[2018-06-25 07:06] LABS: CALCIUM 7.6 mg/dL (8.4-10.2)
[2018-06-25] MEDS: oxyCODONE 20 mg ER Tab (oxyCONTIN) PO SCH ×2 (08:39→21:12)
[2018-06-25] MEDS: Pantoprazole 40 mg EC Tab PO SCH (08:46)
[2018-06-25] MEDS: Sodium Chloride 0.9% 1,000 ML IV SCH ×2 (08:57→17:18)
[2018-06-25] MEDS ORDERED: Benzocaine/Menthol (Cepacol) Lozenge PO PRN (10:40)
--- NOTE | 2018-06-25 14:49 | PN ---
DATE: 06/25/2018 SUBJECTIVE: The patient seen and examined. Interim events noted. The patient remains in regular medical floor. Sleeping, arousable. Complains of pain, but is controlled with medication. No chest pain or shortness of breath. PHYSICAL EXAMINATION: GENERAL: The patient is in no acute distress. VITAL SIGNS: Stable. HEART EXAM: S1, S2, normal and regular. LUNGS: Good bilateral air exchange. ABDOMEN: Soft, nontender. The patient has nephrostomy tubes on both sides which is functioning with drainage . EXTREMITIES: No edema. No calf swelling. No tenderness. No acute ischemia. SIZE CHANGER: Exam is essentially unchanged. DIAGNOSTIC DATA: Available diagnostic data reviewed. Hemoglobin is 7.5. ASSESSMENT AND PLAN: The patient is hemodynamically stable although extermination inspector prognosis is poor. Plan as ordered. Vinay Henderson MD
--- NOTE | 2018-06-25 14:52 | CP.PCM.CON ---
History of Present Illness - History of Present Illness History of Present Illness: Infectious Disease Consultation Note- ID consult requested for h/o VRE UTI and multiple UTIs in the past. HPI- Patient is a 78 y/o male known to me from some of his previous hospital admission s for UTI. Pt. 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 Pt. has not received any further chemo in past few months secondary to weakness and multiple hospitlaizations as per oncologist . however, he has received radiation for pain control as per oncologist's note. I'm asked to see him to see whether he requires antibiotics or not since since he has h/o recent VRE last admission for which he was treated with full course of linezolid ( I was not consulted during that admission). currently pt. has been afebrile and normal wbc count and negative urine cx this admission. pt. is resting in bed but he is weaker than other admissions. He denies any fever but does get chills. he denies any nausea or vomiting, denies any abdominal pain but does c/o back pain chronic. denies any cough or sob. denies any chest pain Past medical history: DM, urothelial cancer Past surgical history: Hernia repair Family history: Denies hematologic and oncologic problems Social history: Former tobacco, denies alcohol, and illicit drug use. Allergies: Aspirin Review of Systems - Review of Systems Review of Systems: ROS- He denies any fever but does get chills. he denies any nausea or vomiting, denies any abdominal pain but does c/o back pain chronic. denies any cough or sob. denies any chest pain Past Patient History - Infectious Disease Hx of Infectious Diseases: None - Past Medical History & Family History Past Medical History?: Yes - Past Social History Smoking Status: Former Smoker Home Situation {Lives}: With Family - CARDIAC Hx Peripheral Edema: Yes (BLE) - PULMONARY Hx Respiratory Disorders: No - NEUROLOGICAL Hx Neurological Disorder: No - HEENT Hx HEENT Problems: No - RENAL Hx Chronic Kidney Disease: No - ENDOCRINE/METABOLIC Hx Diabetes Mellitus Type 2: Yes - INTEGUMENTARY Hx Dermatological Problems: No - MUSCULOSKELETAL/RHEUMATOLOGICAL Hx Falls: No - GASTROINTESTINAL Hx Gastrointestinal Disorders: No Other/Comment: TURBT - GENITOURINARY/GYNECOLOGICAL Hx Genitourinary Disorders: Yes 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) Other/Comment: B/L Nephrostomy tubes; HX OBSTRUCTIVE UROPATHY - PSYCHIATRIC Hx Substance Use: No - SURGICAL HISTORY Hx Herniorrhaphy: Yes - ANESTHESIA Hx Anesthesia: Yes Hx Anesthesia Reactions: No Hx Malignant Hyperthermia: No Meds Allergies/Adverse Reactions: Allergies Allergy/AdvReac Type Severity Reaction Status Date / Time aspirin Allergy DIZZINESS Verified 06/24/18 12:51 - Medications Medications: Current Medications Acetaminophen (Tylenol 325mg Tab) 650 mg PO Q6 PRN PRN Reason: Pain, Mild (1-3) Alprazolam (Xanax) 0.25 mg PO Q6 PRN PRN Reason: Anxiety Stop: 07/01/18 15:44 Benzocaine/Menthol (Cepacol Sore Throat) 1 navneet PO Q3 PRN PRN Reason: Sore Throat Bupropion HCl (Wellbutrin) 75 mg PO DAILY [facility] Last Admin: 06/25/18 08:46 Dose: 75 mg Sodium Chloride (Sodium Chloride 0.9%) 1,000 mls @ 80 mls/hr IV .[id number] [facility] Last Admin: 06/25/18 08:57 Dose: 80 mls/hr Lactulose (Enulose) 20 gm PO DAILY [facility] Last Admin: 06/25/18 08:52 Dose: 20 gm Ondansetron HCl (Zofran Inj) 4 mg IVP Q6 PRN PRN Reason: Nausea/Vomiting Oxycodone HCl (Oxycodone Immediate Release Tab) 10 mg PO Q4 PRN PRN Reason: Pain, severe (8-10) Oxycodone HCl (Oxycontin Extended Release Tab) 20 mg PO Q12 [facility] Last Admin: 06/25/18 08:39 Dose: 20 mg Pantoprazole Sodium (Protonix Ec Tab) 40 mg PO DAILY [facility] Last Admin: 06/25/18 08:46 Dose: 40 mg Sennosides (Senokot Tab) 17.2 mg PO HS [facility] Last Admin: 06/24/18 21:41 Dose: 17.2 mg Tamsulosin HCl (Flomax) 0.4 mg PO HS [facility] Last Admin: 06/24/18 21:41 Dose: 0.4 mg Physical Exam - Constitutional Appears: No Acute Distress, Cachectic, Chronically Ill - Head Exam Head Exam: ATRAUMATIC - Eye Exam Eye Exam: EOMI, PERRL - ENT Exam ENT Exam: Normal Oropharynx - Neck Exam Neck exam: Positive for: Full Rom - Respiratory Exam Respiratory Exam: Clear to Auscultation Bilateral, NORMAL BREATHING PATTERN - Cardiovascular Exam Cardiovascular Exam: RRR, +S1, +S2 - GI/Abdominal Exam GI & Abdominal Exam: Normal Bowel Sounds, Soft Additional comments: NT, ND - Back Exam Additional comments: b/l nephrostomy tubes in place, no erythema, no discharge urine in b/l nephrostomy bags yellow - Neurological Exam Additional comments: awake AAo x 2 Results - Vital Signs Recent Vital Signs: Last Vital Signs Temp 98.2 F 06/25/18 07:48 Pulse 83 06/25/18 07:48 Resp 19 06/25/18 07:48 BP 101/54 L 06/25/18 07:48 Pulse Ox 96 06/25/18 07:48 - Labs Result Diagrams: 06/26/18 05:45 06/26/18 05:45 Labs: Laboratory Results - last 24 hr 06/24/18 06/24/18 06/24/18 13:45 18:38 21:13 WBC RBC Hgb Hct MCV MCH MCHC RDW Plt Count Neutrophils % (Manual) 80 H Band Neutrophils % 2 Lymphocytes % (Manual) 9 L Monocytes % (Manual) 6 Eosinophils % (Manual) 1 Myelocytes % 2 H Toxic Granulation Present Platelet Estimate Normal Large Platelets Present Hypochromasia (manual) Slight Poikilocytosis (manual Slight Anisocytosis (manual) Slight Ovalocytes Slight Sodium Potassium Chloride Carbon Dioxide Anion Gap BUN Creatinine Est GFR ( Amer) Est GFR (Non-Af Amer) POC Glucose (mg/dL) 126 H Random Glucose Calcium Urine Color Yellow Urine Clarity Turbid Urine pH 5.0 Ur Specific [place] 1.016 Urine Protein 100 Urine Glucose (UA) Neg Urine Ketones Negative Urine Blood Small Urine Nitrate Negative Urine Bilirubin Negative Urine Urobilinogen 0.2-1.0 Ur Leukocyte Esterase Large Urine RBC (Auto) 16 H Urine Microscopic WBC 105 H Ur Squamous Epith Cells 1 Urine Bacteria Occ H Hyaline Casts 0-2 06/25/18 06/25/18 06/25/18 05:30 05:30 05:51 WBC 4.0 L RBC 2.44 L Hgb 7.5 L Hct 22.9 L MCV 94.0 MCH 30.6 MCHC 32.6 L RDW 19.0 H Plt Count 115 L D Neutrophils % (Manual) Band Neutrophils % Lymphocytes % (Manual) Monocytes % (Manual) Eosinophils % (Manual) Myelocytes % Toxic Granulation Platelet Estimate Large Platelets Hypochromasia (manual) Poikilocytosis (manual Anisocytosis (manual) Ovalocytes Sodium 138 Potassium 4.4 Chloride 109 H Carbon Dioxide 24 Anion Gap 9 L BUN 40 H Creatinine 3.0 H Est GFR ( Amer) 24 Est GFR (Non-Af Amer) 20 POC Glucose (mg/dL) 96 Random Glucose 85 Calcium 7.6 L Urine Color Urine Clarity Urine pH Ur Specific [place] Urine Protein Urine Glucose (UA) Urine Ketones Urine Blood Urine Nitrate Urine Bilirubin Urine Urobilinogen Ur Leukocyte Esterase Urine RBC (Auto) Urine Microscopic WBC Ur Squamous Epith Cells Urine Bacteria Hyaline Casts 06/25/18 10:59 WBC RBC Hgb Hct MCV MCH MCHC RDW Plt Count Neutrophils % (Manual) Band Neutrophils % Lymphocytes % (Manual) Monocytes % (Manual) Eosinophils % (Manual) Myelocytes % Toxic Granulation Platelet Estimate Large Platelets Hypochromasia (manual) Poikilocytosis (manual Anisocytosis (manual) Ovalocytes Sodium Potassium Chloride Carbon Dioxide Anion Gap BUN Creatinine Est GFR ( Amer) Est GFR (Non-Af Amer) POC Glucose (mg/dL) 126 H Random Glucose Calcium Urine Color Urine Clarity Urine pH Ur Specific [place] Urine Protein Urine Glucose (UA) Urine Ketones Urine Blood Urine Nitrate Urine Bilirubin Urine Urobilinogen Ur Leukocyte Esterase Urine RBC (Auto) Urine Microscopic WBC Ur Squamous Epith Cells Urine Bacteria Hyaline Casts Microbiology 06/24/18 19:01 Blood-Venous Blood Culture - Preliminary NO GROWTH AFTER 24 HOURS 06/24/18 13:53 Urine,Kidney Urine Culture - Final No Growth (<1,000 CFU/ML) 06/24/18 13:45 Blood-Venous Blood Culture - Preliminary NO GROWTH AFTER 24 HOURS Microbiology 06/08/18 13:41 Urine,Catheterized Urine Culture - Final No Growth (<1,000 CFU/ML) 05/27/18 14:00 Urine,Veliz Urine Culture - Final Vancomycin Resistant E.faecium 05/27/18 13:52 Blood Blood Culture - Final 05/27/18 13:52 Blood Gram Stain - Final NO GROWTH AFTER 5 DAYS TEST NOT PERFORMED 05/22/18 21:24 Urine,Kidney Urine Culture - Final Enterococcus Faecium Assessment & Plan (1) Back pain Status: Acute (2) Malignant neoplasm metastatic from bladder Status: Acute (3) Acute kidney failure Status: Acute - Assessment and Plan (Free Text) Assessment: A/P- 78 year old male with stage 4 bladder cancer with bony mets and obstructive uropathy s/p TURBT and b/l nephrostomy tubes since 11/2017 s/p multiple hospitalizations and multiorganisms UTIs all treated in the past admissions s/p twice nephrostomy tube changes with most recent one in 06/08/2018 admitted with weakness nad low back pain. afebrile no leukocytosis UA- + LE but negative for any nitrates urine cx- negative this admission last admission urien cx- VRE ( was treated with linezolid as per other ID doc seeing pt. that admission). acute renal insufficiemcy. plan- check blood cx x 2. check another urine cx. hold off on any IV abx at this time pending second urine cx. may need to have and renal evaluation since once again pt. renal function deteriorating eventhough recent nephrostomy tubes were replaced. all labs and notes reviewed. Thank you for allowing me to take part in the care of this patient.
--- NOTE | 2018-06-25 22:12 | CP.PCM.CON ---
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 He has been receiving chemotherapy with carboplatin and gemcitabine but has not received chemotherapy in the last few months. He recently completed radiotherapy for pain control. He notes to continued back pain. He continues to have a poor appetite. He denies N/V/D. Overall he continues to clinically declined but family has deferred hospice. Past medical history: DM, urothelial cancer Past surgical history: Hernia repair Family history: Denies hematologic and oncologic problems Social history: Former tobacco, denies alcohol, and illicit drug use. Allergies: Aspirin Review of systems: All remaining review of systems including HEENT, cardiovascular, respiratory, gastrointestinal, genitourinary, musculoskeletal, dermatologic, neurologic, and psychiatric are negative unless mentioned in the HPI. Past Patient History - Infectious Disease Hx of Infectious Diseases: None - Past Medical History & Family History Past Medical History?: Yes - Past Social History Smoking Status: Former Smoker - CARDIAC Hx Peripheral Edema: Yes (BLE) - PULMONARY Hx Respiratory Disorders: No - NEUROLOGICAL Hx Neurological Disorder: No - HEENT Hx HEENT Problems: No - RENAL Hx Chronic Kidney Disease: No - ENDOCRINE/METABOLIC Hx Diabetes Mellitus Type 2: Yes - HEMATOLOGICAL/ONCOLOGICAL Hx AIDS: No Hx Human Immunodeficiency Virus (HIV): No - INTEGUMENTARY Hx Dermatological Problems: No - MUSCULOSKELETAL/RHEUMATOLOGICAL Hx Falls: No - GASTROINTESTINAL Hx Gastrointestinal Disorders: No Other/Comment: TURBT - GENITOURINARY/GYNECOLOGICAL Hx Genitourinary Disorders: Yes 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) Other/Comment: B/L Nephrostomy tubes; HX OBSTRUCTIVE UROPATHY - PSYCHIATRIC Hx Substance Use: No - SURGICAL HISTORY Hx Herniorrhaphy: Yes - ANESTHESIA Hx Anesthesia: Yes Hx Anesthesia Reactions: No Hx Malignant Hyperthermia: No Meds Allergies/Adverse Reactions: Allergies Allergy/AdvReac Type Severity Reaction Status Date / Time aspirin Allergy DIZZINESS Verified 06/24/18 12:51 - Medications Medications: Current Medications Acetaminophen (Tylenol 325mg Tab) 650 mg PO Q6 PRN PRN Reason: Pain, Mild (1-3) Alprazolam (Xanax) 0.25 mg PO Q6 PRN PRN Reason: Anxiety Stop: 07/01/18 15:44 Benzocaine/Menthol (Cepacol Sore Throat) 1 navneet PO Q3 PRN PRN Reason: Sore Throat Bupropion HCl (Wellbutrin) 75 mg PO DAILY [facility] Last Admin: 06/25/18 08:46 Dose: 75 mg Sodium Chloride (Sodium Chloride 0.9%) 1,000 mls @ 80 mls/hr IV .[id number] [facility] Last Admin: 06/25/18 17:18 Dose: Not Given Lactulose (Enulose) 20 gm PO DAILY [facility] Last Admin: 06/25/18 08:52 Dose: 20 gm Ondansetron HCl (Zofran Inj) 4 mg IVP Q6 PRN PRN Reason: Nausea/Vomiting Oxycodone HCl (Oxycodone Immediate Release Tab) 10 mg PO Q4 PRN PRN Reason: Pain, severe (8-10) Oxycodone HCl (Oxycontin Extended Release Tab) 20 mg PO Q12 [facility] Last Admin: 06/25/18 21:12 Dose: 20 mg Pantoprazole Sodium (Protonix Ec Tab) 40 mg PO DAILY [facility] Last Admin: 06/25/18 08:46 Dose: 40 mg Sennosides (Senokot Tab) 17.2 mg PO [facility] Last Admin: 06/25/18 21:13 Dose: 17.2 mg Tamsulosin HCl (Flomax) 0.4 mg PO [facility] Last Admin: 06/25/18 21:13 Dose: 0.4 mg Physical Exam - Constitutional Appears: Cachectic - Head Exam Head Exam: ATRAUMATIC - Eye Exam Eye Exam: Normal appearance - ENT Exam ENT Exam: Mucous Membranes Dry - Respiratory Exam Respiratory Exam: NORMAL BREATHING PATTERN - Cardiovascular Exam Cardiovascular Exam: +S1, +S2 - GI/Abdominal Exam GI & Abdominal Exam: Normal Bowel Sounds - Extremities Exam Extremities exam: Positive for: normal inspection - Psychiatric Exam Psychiatric exam: Normal Affect, Normal Mood - Skin Skin Exam: Warm Results - Vital Signs Recent Vital Signs: Last Vital Signs Temp 99.1 F 06/25/18 21:25 Pulse 82 06/25/18 21:25 Resp 18 06/25/18 21:25 BP 99/50 L 06/25/18 21:25 Pulse Ox 97 06/25/18 16:11 - Labs Result Diagrams: 06/25/18 05:30 06/25/18 05:30 Labs: Laboratory Results - last 24 hr 06/25/18 06/25/18 06/25/18 05:30 05:30 05:51 WBC 4.0 L RBC 2.44 L Hgb 7.5 L Hct 22.9 L MCV 94.0 MCH 30.6 MCHC 32.6 L RDW 19.0 H Plt Count 115 L D Sodium 138 Potassium 4.4 Chloride 109 H Carbon Dioxide 24 Anion Gap 9 L BUN 40 H Creatinine 3.0 H Est GFR ( Amer) 24 Est GFR (Non-Af Amer) 20 POC Glucose (mg/dL) 96 Random Glucose 85 Calcium 7.6 L Blood Type Antibody Screen Crossmatch BBK History Checked 06/25/18 06/25/18 06/25/18 10:59 16:02 16:56 WBC RBC Hgb Hct MCV MCH MCHC RDW Plt Count Sodium Potassium Chloride Carbon Dioxide Anion Gap BUN Creatinine Est GFR ( Amer) Est GFR (Non-Af Amer) POC Glucose (mg/dL) 126 H 94 Random Glucose Calcium Blood Type B POSITIVE Antibody Screen Negative Crossmatch See Detail BBK History Checked Patient has bt Assessment & Plan (1) Pancytopenia Assessment and Plan: bone metastasis recent radiation 2U PRBC today Status: Acute Priority: High (2) Bladder cancer Assessment and Plan: stage IV has not received chemotherapy in 2-3 months s/p recent palliative radiation to bone metastasis recommend palliative care evaluation past hospice discussion declined Thank you for this interesting consult. Status: Chronic Priority: High
[2018-06-26] MEDS: Sodium Chloride 0.9% 1,000 ML IV SCH ×2 (04:30→21:30)
[2018-06-26 06:59] LABS: HEMOGLOBIN 10.2 g/dL (12.0-18.0); MEAN CELL VOLUME 90.8 fl (80.0-94.0); MEAN CORPUSCULAR HEMOGLOBIN 30.7 pg (27.0-31.0); MEAN CORPUSCULAR HGB CONC 33.8 g/dL (33.0-37.0); RBC 3.31 Mil/uL (4.40-5.90); RED CELL DISTRIBUTION WIDTH 18.7 % (11.5-14.5); WHITE BLOOD COUNT 4.6 K/uL (4.8-10.8)
[2018-06-26 07:15] LABS: ALB/GLOB RATIO 0.7 (1.0-2.1); ALBUMIN 2.5 g/dL (3.5-5.0)
[2018-06-26] MEDS: oxyCODONE 20 mg ER Tab (oxyCONTIN) PO SCH ×2 (09:19→21:30)
[2018-06-26] MEDS: Pantoprazole 40 mg EC Tab PO SCH (09:21)
--- NOTE | 2018-06-26 12:11 | PN ---
DATE: 06/26/2018 SUBJECTIVE: The patient seen and examined. Interim events noted. Consults noted and appreciated. The patient remains in regular medical floor, sleepy, arousable, complains of lot of pain, controlled with medication. No new complaint. No chest pain. No shortness of breath. PHYSICAL EXAMINATION: GENERAL: The patient is in no acute distress. VITAL SIGNS: Stable. HEART: S1 and S2, normal and regular. LUNGS: Good bilateral air exchange. ABDOMEN: Soft and nontender. No organomegaly. No fluid. Bowel sounds are plus and normal. Nephrostomy tubes are draining without any complication. EXTREMITIES: No edema. No calf swelling. No tenderness. No acute ischemia. [employer]EM[employer]: Exam is essentially unchanged. DIAGNOSTIC DATA: Available diagnostic data reviewed. ASSESSMENT: Overall, the patient's general medical condition is stable. Plan as ordered. Vinay Henderson MD
[2018-06-26] MEDS: oxyCODONE 10 mg Immediate Release Tab PO PRN (13:45)
[2018-06-27] MEDS: Sodium Chloride 0.9% 1,000 ML IV SCH ×2 (06:39→23:16)
[2018-06-27 07:07] LABS: HEMOGLOBIN 9.5 g/dL (12.0-18.0); MEAN CELL VOLUME 90.9 fl (80.0-94.0); MEAN CORPUSCULAR HEMOGLOBIN 30.7 pg (27.0-31.0); MEAN CORPUSCULAR HGB CONC 33.7 g/dL (33.0-37.0); RBC 3.11 Mil/uL (4.40-5.90); RED CELL DISTRIBUTION WIDTH 18.8 % (11.5-14.5); WHITE BLOOD COUNT 3.8 K/uL (4.8-10.8)
[2018-06-27 07:21] LABS: ALB/GLOB RATIO 0.7 (1.0-2.1); ALBUMIN 2.4 g/dL (3.5-5.0); CALCIUM 7.7 mg/dL (8.4-10.2)
[2018-06-27 07:31] LABS: URINE BILIRUBIN NEGATIVE (NEGATIVE); URINE BLOOD NEGATIVE (NEGATIVE); URINE CLARITY CLOUDY (Clear); URINE COLOR YELLOW (YELLOW); URINE GLUCOSE (UA) NEG (Normal); URINE LEUKOCYTE ESTERASE SMALL Leu/uL (Negative); URINE PROTEIN 30 mg/dL (NEGATIVE); URINE UROBILINOGEN 0.2-1.0 mg/dL (0.2-1.0)
[2018-06-27] MEDS: Pantoprazole 40 mg EC Tab PO SCH (09:08)
[2018-06-27] MEDS: oxyCODONE 20 mg ER Tab (oxyCONTIN) PO SCH ×2 (09:21→21:41)
--- NOTE | 2018-06-27 16:46 | CP.PCM.PN ---
Subjective - Date & Time of Evaluation Date of Evaluation: 06/27/18 Time of Evaluation: 16:30 - Subjective Subjective: Patient is well known to me from previous admission. He's currently resting comfortably. His current pain regimen include Oxycontin 20mg q12h and Oxycodone 10mg q4h PRN for breakthrough. HE hasn't asked for Oxycodone since this mornin g. When prompted, he does complain of lower back pain. Objective - Vital Signs/Intake and Output Vital Signs (last 24 hours): Temp Pulse Resp BP Pulse Ox 98 F 89 18 104/56 L 99 06/27/18 16:25 06/27/18 16:25 06/27/18 16:25 06/27/18 16:25 06/27/18 16:25 - Medications Medications: Current Medications Acetaminophen (Tylenol 325mg Tab) 650 mg PO Q6 PRN PRN Reason: Pain, Mild (1-3) Alprazolam (Xanax) 0.25 mg PO Q6 PRN PRN Reason: Anxiety Stop: 07/01/18 15:44 Last Admin: 06/27/18 10:40 Dose: 0.25 mg Benzocaine/Menthol (Cepacol Sore Throat) 1 navneet PO Q3 PRN PRN Reason: Sore Throat Bupropion HCl (Wellbutrin) 75 mg PO DAILY [facility] Last Admin: 06/27/18 09:09 Dose: 75 mg Sodium Chloride (Sodium Chloride 0.9%) 1,000 mls @ 80 mls/hr IV .[id number] [facility] Last Admin: 06/27/18 06:39 Dose: 80 mls/hr Lactulose (Enulose) 20 gm PO DAILY [facility] Last Admin: 06/27/18 09:08 Dose: 20 gm Ondansetron HCl (Zofran Inj) 4 mg IVP Q6 PRN PRN Reason: Nausea/Vomiting Oxycodone HCl (Oxycodone Immediate Release Tab) 10 mg PO Q4 PRN PRN Reason: Pain, severe (8-10) Last Admin: 06/26/18 13:45 Dose: 10 mg Oxycodone HCl (Oxycontin Extended Release Tab) 20 mg PO Q12 [facility] Last Admin: 06/27/18 09:21 Dose: 20 mg Pantoprazole Sodium (Protonix Ec Tab) 40 mg PO DAILY [facility] Last Admin: 06/27/18 09:08 Dose: 40 mg Sennosides (Senokot Tab) 17.2 mg PO HS [facility] Last Admin: 06/26/18 21:31 Dose: 17.2 mg Tamsulosin HCl (Flomax) 0.4 mg PO HS [facility] Last Admin: 06/26/18 21:32 Dose: 0.4 mg - Labs Labs: 06/27/18 05:20 06/27/18 05:20 Assessment and Plan (1) Back pain Assessment & Plan: 78 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 Comfortable on the current regimen. - continue current regimen - re-consult PRN Status: Acute
--- NOTE | 2018-06-27 22:30 | CP.PCM.PN ---
Subjective - Date & Time of Evaluation Date of Evaluation: 06/27/18 Time of Evaluation: 18:15 - Subjective Subjective: Fatigued. Objective - Vital Signs/Intake and Output Vital Signs (last 24 hours): Temp Pulse Resp BP Pulse Ox 98 F 89 18 104/56 L 99 06/27/18 16:25 06/27/18 16:25 06/27/18 16:25 06/27/18 16:25 06/27/18 16:25 Intake and Output: 06/27/18 06/28/18 18:59 06:59 Intake Total 1150 Output Total 600 Balance 550 - Medications Medications: Current Medications Acetaminophen (Tylenol 325mg Tab) 650 mg PO Q6 PRN PRN Reason: Pain, Mild (1-3) Alprazolam (Xanax) 0.25 mg PO Q6 PRN PRN Reason: Anxiety Stop: 07/01/18 15:44 Last Admin: 06/27/18 10:40 Dose: 0.25 mg Benzocaine/Menthol (Cepacol Sore Throat) 1 navneet PO Q3 PRN PRN Reason: Sore Throat Bupropion HCl (Wellbutrin) 75 mg PO DAILY [facility] Last Admin: 06/27/18 09:09 Dose: 75 mg Sodium Chloride (Sodium Chloride 0.9%) 1,000 mls @ 80 mls/hr IV .[id number] [facility] Last Admin: 06/27/18 06:39 Dose: 80 mls/hr Lactulose (Enulose) 20 gm PO DAILY [facility] Last Admin: 06/27/18 09:08 Dose: 20 gm Ondansetron HCl (Zofran Inj) 4 mg IVP Q6 PRN PRN Reason: Nausea/Vomiting Oxycodone HCl (Oxycodone Immediate Release Tab) 10 mg PO Q4 PRN PRN Reason: Pain, severe (8-10) Last Admin: 06/26/18 13:45 Dose: 10 mg Oxycodone HCl (Oxycontin Extended Release Tab) 20 mg PO Q12 [facility] Last Admin: 06/27/18 21:41 Dose: 20 mg Pantoprazole Sodium (Protonix Ec Tab) 40 mg PO DAILY [facility] Last Admin: 06/27/18 09:08 Dose: 40 mg Sennosides (Senokot Tab) 17.2 mg PO HS [facility] Last Admin: 06/27/18 21:42 Dose: 17.2 mg Tamsulosin HCl (Flomax) 0.4 mg PO HS [facility] Last Admin: 06/27/18 21:41 Dose: 0.4 mg - Labs Labs: 06/27/18 05:20 06/27/18 05:20 - Head Exam Head Exam: ATRAUMATIC - Eye Exam Eye Exam: Normal appearance - ENT Exam ENT Exam: Mucous Membranes Dry - Respiratory Exam Respiratory Exam: NORMAL BREATHING PATTERN - Cardiovascular Exam Cardiovascular Exam: +S1, +S2 - GI/Abdominal Exam GI & Abdominal Exam: Normal Bowel Sounds Assessment and Plan (1) Pancytopenia Assessment & Plan: bone metastasis recent radiation s/p 2U PRBC Status: Acute (2) Bladder cancer Assessment & Plan: stage IV has not received chemotherapy in 2-3 months s/p recent palliative radiation to bone metastasis recommend palliative care evaluation past hospice discussion declined Status: Chronic
--- NOTE | 2018-06-28 08:23 | CP.PCM.PN ---
<Otoniel Merchant - Last Filed: 06/28/18 14:37> Subjective - Date & Time of Evaluation Date of Evaluation: 06/28/18 Time of Evaluation: 08:22 - Subjective Subjective: Patient seen and examined today, c/o pain during the night and endorses did no get his pain meds. Otherwise he denies F,N,V, no chest pain or sob. Objective - Vital Signs/Intake and Output Vital Signs (last 24 hours): Temp Pulse Resp BP Pulse Ox 97.9 F 91 H 20 112/68 97 06/28/18 00:13 06/28/18 00:13 06/28/18 00:13 06/28/18 00:13 06/28/18 00:13 Intake and Output: 06/28/18 06/28/18 06:59 18:59 Intake Total 2260 Output Total 1500 Balance 760 - Medications Medications: Current Medications Acetaminophen (Tylenol 325mg Tab) 650 mg PO Q6 PRN PRN Reason: Pain, Mild (1-3) Alprazolam (Xanax) 0.25 mg PO Q6 PRN PRN Reason: Anxiety Stop: 07/01/18 15:44 Last Admin: 06/27/18 10:40 Dose: 0.25 mg Benzocaine/Menthol (Cepacol Sore Throat) 1 navneet PO Q3 PRN PRN Reason: Sore Throat Bupropion HCl (Wellbutrin) 75 mg PO DAILY [facility] Last Admin: 06/27/18 09:09 Dose: 75 mg Sodium Chloride (Sodium Chloride 0.9%) 1,000 mls @ 80 mls/hr IV .[id number] [facility] Last Admin: 06/27/18 23:16 Dose: 80 mls/hr Lactulose (Enulose) 20 gm PO DAILY [facility] Last Admin: 06/27/18 09:08 Dose: 20 gm Ondansetron HCl (Zofran Inj) 4 mg IVP Q6 PRN PRN Reason: Nausea/Vomiting Oxycodone HCl (Oxycodone Immediate Release Tab) 10 mg PO Q4 PRN PRN Reason: Pain, severe (8-10) Last Admin: 06/26/18 13:45 Dose: 10 mg Oxycodone HCl (Oxycontin Extended Release Tab) 20 mg PO Q12 [facility] Last Admin: 06/27/18 21:41 Dose: 20 mg Pantoprazole Sodium (Protonix Ec Tab) 40 mg PO DAILY [facility] Last Admin: 06/27/18 09:08 Dose: 40 mg Sennosides (Senokot Tab) 17.2 mg PO HS [facility] Last Admin: 06/27/18 21:42 Dose: 17.2 mg Tamsulosin HCl (Flomax) 0.4 mg PO HS [facility] Last Admin: 06/27/18 21:41 Dose: 0.4 mg - Labs Labs: 06/27/18 05:20 06/27/18 05:20 - Constitutional Appears: No Acute Distress - Head Exam Head Exam: NORMAL INSPECTION - Eye Exam Eye Exam: EOMI, PERRL - Respiratory Exam Respiratory Exam: Clear to Ausculation Bilateral, NORMAL BREATHING PATTERN - Cardiovascular Exam Cardiovascular Exam: REGULAR RHYTHM, +S1, +S2 - GI/Abdominal Exam GI & Abdominal Exam: Soft. 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 Plan: Pain management afebrile, VSS c/w Linezolid 600 mg IVPB Q12 ID consult, recommeds appreciated Hematology consult, recommeds appreciated. Nephro consulted Resume home medications Rest of the plan as ordered Case d/w Dr. Henderson <Vinay Henderson - Last Filed: 06/29/18 03:16> Objective - Vital Signs/Intake and Output Vital Signs (last 24 hours): Temp Pulse Resp BP Pulse Ox 98.6 F 87 20 140/65 99 06/29/18 00:40 06/29/18 00:40 06/29/18 00:40 06/29/18 00:40 06/29/18 00:40 Intake and Output: 06/28/18 06/29/18 18:59 06:59 Output Total 700 Balance -700 - Medications Medications: Current Medications Acetaminophen (Tylenol 325mg Tab) 650 mg PO Q6 PRN PRN Reason: Pain, Mild (1-3) Alprazolam (Xanax) 0.25 mg PO Q6 PRN PRN Reason: Anxiety Stop: 07/01/18 15:44 Last Admin: 06/28/18 15:00 Dose: 0.25 mg Benzocaine/Menthol (Cepacol Sore Throat) 1 navneet PO Q3 PRN PRN Reason: Sore Throat Bupropion HCl (Wellbutrin) 75 mg PO DAILY [facility] Last Admin: 06/28/18 09:01 Dose: 75 mg Sodium Chloride (Sodium Chloride 0.9%) 1,000 mls @ 80 mls/hr IV .[id number] [facility] Last Admin: 06/28/18 20:36 Dose: Not Given Lactulose (Enulose) 20 gm PO DAILY [facility] Last Admin: 06/28/18 09:01 Dose: 20 gm Ondansetron HCl (Zofran Inj) 4 mg IVP Q6 PRN PRN Reason: Nausea/Vomiting Oxycodone HCl (Oxycodone Immediate Release Tab) 10 mg PO Q4 PRN PRN Reason: Pain, severe (8-10) Last Admin: 06/26/18 13:45 Dose: 10 mg Oxycodone HCl (Oxycontin Extended Release Tab) 20 mg PO Q12 [facility] Last Admin: 06/28/18 21:33 Dose: 20 mg Pantoprazole Sodium (Protonix Ec Tab) 40 mg PO DAILY [facility] Last Admin: 06/28/18 09:01 Dose: 40 mg Sennosides (Senokot Tab) 17.2 mg PO [facility] Last Admin: 06/28/18 21:34 Dose: 17.2 mg Tamsulosin HCl (Flomax) 0.4 mg PO [facility] Last Admin: 06/28/18 21:34 Dose: 0.4 mg - Labs Labs: 06/28/18 11:51 06/28/18 11:51 Assessment and Plan - Assessment and Plan (Free Text) Assessment: Patient was personally seen and examined by me in rounds with residents. Available labs and diagnostic data reviewed. Case, Patient's condition and management plan discussed with residents in rounds. Agree with resident's progress note. Plan: As ordered.
--- NOTE | 2018-06-28 08:26 | PN ---
DATE: 06/27/2018 SUBJECTIVE: The patient seen and examined. Interim events noted. Consults noted and appreciated. Infectious Disease followup and intervention noted and appreciated. The patient remains in regular medical floor. The patient is sleepy, arousable, complains of multiple sites of bleeding, which is controlled with current pain medication. PHYSICAL EXAMINATION: GENERAL: The patient is a chronically sick looking elderly male in no acute distress. VITAL SIGNS: Stable. HEART: S1 and S2, normal and regular. LUNGS: Good bilateral air exchange. ABDOMEN: Soft, nontender. The patient has nephrostomy tube, which is draining and without any complication. EXTREMITIES: No edema. No calf swelling. No tenderness. No acute ischemia. CENTRAL NERVOUS SYSTEM: Exam is essentially unchanged. DIAGNOSTIC DATA: Available diagnostic data reviewed. ASSESSMENT AND PLAN: Overall, the patient's general medical condition is hemodynamically stable at this time, although long-term functional prognosis remains poor due to underlying . Plan as ordered. Vinay Henderson MD
[2018-06-28] MEDS: oxyCODONE 20 mg ER Tab (oxyCONTIN) PO SCH ×2 (08:59→21:33)
[2018-06-28] MEDS: Pantoprazole 40 mg EC Tab PO SCH (09:01)
--- NOTE | 2018-06-28 10:48 | CP.PCM.CON ---
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 Patient has been in the hospital in and out with chemotherapy among other things. His serum creatinine baseline in the range of 2.5 the patient has problem with the nephrostomy to require to be changes and flushed intermittently. Past medical surgical history related to advanced bladder cancer . diabetes mellitus. Social history not contributory patient is former smoker Review of Systems - Constitutional Constitutional: Anorexia. absent: Chills - Cardiovascular Cardiovascular: absent: Acrocyanosis, Leg Edema - Respiratory Respiratory: absent: Cough, Hemoptysis - Gastrointestinal Gastrointestinal: Abdominal Pain - Genitourinary Genitourinary: As Per HPI - Musculoskeletal Musculoskeletal: Back Pain, Muscle Weakness - Integumentary Integumentary: Dry Skin - Neurological Neurological: absent: Confusion, Focal Weakness - Psychiatric Psychiatric: As Per HPI - Endocrine Endocrine: Fatigue - Hematologic/Lymphatic Hematologic: absent: Easy Bleeding Past Patient History - Infectious Disease Hx of Infectious Diseases: None - Past Medical History & Family History Past Medical History?: Yes - Past Social History Smoking Status: Former Smoker Home Situation {Lives}: With Family - CARDIAC Hx Peripheral Edema: Yes (BLE) - PULMONARY Hx Respiratory Disorders: No - NEUROLOGICAL Hx Neurological Disorder: No - HEENT Hx HEENT Problems: No - RENAL Hx Chronic Kidney Disease: No - ENDOCRINE/METABOLIC Hx Diabetes Mellitus Type 2: Yes - HEMATOLOGICAL/ONCOLOGICAL Hx AIDS: No Hx Human Immunodeficiency Virus (HIV): No - INTEGUMENTARY Hx Dermatological Problems: No - MUSCULOSKELETAL/RHEUMATOLOGICAL Hx Falls: No - GASTROINTESTINAL Hx Gastrointestinal Disorders: No Other/Comment: TURBT - GENITOURINARY/GYNECOLOGICAL Hx Genitourinary Disorders: Yes 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) Other/Comment: B/L Nephrostomy tubes; HX OBSTRUCTIVE UROPATHY - PSYCHIATRIC Hx Substance Use: No - SURGICAL HISTORY Hx Herniorrhaphy: Yes - ANESTHESIA Hx Anesthesia: Yes Hx Anesthesia Reactions: No Hx Malignant Hyperthermia: No Meds Allergies/Adverse Reactions: Allergies Allergy/AdvReac Type Severity Reaction Status Date / Time aspirin Allergy DIZZINESS Verified 06/24/18 12:51 - Medications Medications: Current Medications Acetaminophen (Tylenol 325mg Tab) 650 mg PO Q6 PRN PRN Reason: Pain, Mild (1-3) Alprazolam (Xanax) 0.25 mg PO Q6 PRN PRN Reason: Anxiety Stop: 07/01/18 15:44 Last Admin: 06/28/18 09:10 Dose: 0.25 mg Benzocaine/Menthol (Cepacol Sore Throat) 1 navneet PO Q3 PRN PRN Reason: Sore Throat Bupropion HCl (Wellbutrin) 75 mg PO DAILY [facility] Last Admin: 06/28/18 09:01 Dose: 75 mg Sodium Chloride (Sodium Chloride 0.9%) 1,000 mls @ 80 mls/hr IV .[id number] [facility] Last Admin: 06/27/18 23:16 Dose: 80 mls/hr Lactulose (Enulose) 20 gm PO DAILY [facility] Last Admin: 06/28/18 09:01 Dose: 20 gm Ondansetron HCl (Zofran Inj) 4 mg IVP Q6 PRN PRN Reason: Nausea/Vomiting Oxycodone HCl (Oxycodone Immediate Release Tab) 10 mg PO Q4 PRN PRN Reason: Pain, severe (8-10) Last Admin: 06/26/18 13:45 Dose: 10 mg Oxycodone HCl (Oxycontin Extended Release Tab) 20 mg PO Q12 [facility] Last Admin: 06/28/18 08:59 Dose: 20 mg Pantoprazole Sodium (Protonix Ec Tab) 40 mg PO DAILY [facility] Last Admin: 06/28/18 09:01 Dose: 40 mg Sennosides (Senokot Tab) 17.2 mg PO [facility] Last Admin: 06/27/18 21:42 Dose: 17.2 mg Tamsulosin HCl (Flomax) 0.4 mg PO [facility] Last Admin: 06/27/18 21:41 Dose: 0.4 mg Physical Exam - Constitutional Appears: No Acute Distress - Eye Exam Eye Exam: Conjunctival injection - ENT Exam ENT Exam: Mucous Membranes Moist - Neck Exam Neck exam: Positive for: Lymphadenopathy - Respiratory Exam Respiratory Exam: NORMAL BREATHING PATTERN. absent: Chest Wall Tenderness - Cardiovascular Exam Cardiovascular Exam: absent: Gallop, JVD, Rubs - GI/Abdominal Exam GI & Abdominal Exam: Normal Bowel Sounds - Extremities Exam Extremities exam: Negative for: calf tenderness, pedal edema - Back Exam Back exam: CVA tenderness (L), CVA tenderness (R) - Neurological Exam Neurological exam: Alert - Psychiatric Exam Psychiatric exam: Normal Affect Results - Vital Signs Recent Vital Signs: Last Vital Signs Temp 98.1 F 06/28/18 08:54 Pulse 110 H 06/28/18 08:54 Resp 20 06/28/18 08:54 BP 130/64 06/28/18 08:54 Pulse Ox 100 06/28/18 08:54 - Labs Result Diagrams: 06/27/18 05:20 06/27/18 05:20 Labs: Laboratory Results - last 24 hr 06/27/18 06/27/18 06/27/18 11:00 16:15 22:12 POC Glucose (mg/dL) 147 H 111 H 117 H 06/28/18 05:42 POC Glucose (mg/dL) 135 H Assessment & Plan (1) Back pain Status: Acute (2) Complicated UTI (urinary tract infection) Status: Acute (3) Acute kidney failure Assessment and Plan: acute kidney injury most likely related to obstructive uropathy related to malfunction of nephrostomy. patient has baseline serum creatinine around 2.5 consistent with stage IV CK D debility Metastatic bladder cancer with status post chemotherapy Anemia Recommendation As discussed with the nurse practitioner yesterday to flush the nephrostomy to which has been done and its and draining good amount of urine at the present. An d repeat BMP is still pending expected serum creatinine to come down somewhat to his baseline probably. gentle IV fluid hydration Status: Acute (4) Diabetes 1.5, managed as type 2 Status: Acute (5) Malignant neoplasm metastatic from bladder Status: Acute
--- NOTE | 2018-06-28 11:04 | CP.PCM.PN ---
Subjective - Date & Time of Evaluation Date of Evaluation: 06/28/18 Time of Evaluation: 11:04 - Subjective Subjective: ID Note- Pt. seen and examined today. remains weak and tired. afebrile. poor appetite. as per nurse the nephrostomy tubes were flushed and draining better. Objective - Vital Signs/Intake and Output Vital Signs (last 24 hours): Temp Pulse Resp BP Pulse Ox 98.1 F 110 H 20 130/64 100 06/28/18 08:54 06/28/18 08:54 06/28/18 08:54 06/28/18 08:54 06/28/18 08:54 Intake and Output: 06/28/18 06/28/18 06:59 18:59 Intake Total 2260 Output Total 1500 Balance 760 - Medications Medications: Current Medications Acetaminophen (Tylenol 325mg Tab) 650 mg PO Q6 PRN PRN Reason: Pain, Mild (1-3) Alprazolam (Xanax) 0.25 mg PO Q6 PRN PRN Reason: Anxiety Stop: 07/01/18 15:44 Last Admin: 06/28/18 09:10 Dose: 0.25 mg Benzocaine/Menthol (Cepacol Sore Throat) 1 navneet PO Q3 PRN PRN Reason: Sore Throat Bupropion HCl (Wellbutrin) 75 mg PO DAILY [facility] Last Admin: 06/28/18 09:01 Dose: 75 mg Sodium Chloride (Sodium Chloride 0.9%) 1,000 mls @ 80 mls/hr IV .[id number] [facility] Last Admin: 06/27/18 23:16 Dose: 80 mls/hr Lactulose (Enulose) 20 gm PO DAILY [facility] Last Admin: 06/28/18 09:01 Dose: 20 gm Ondansetron HCl (Zofran Inj) 4 mg IVP Q6 PRN PRN Reason: Nausea/Vomiting Oxycodone HCl (Oxycodone Immediate Release Tab) 10 mg PO Q4 PRN PRN Reason: Pain, severe (8-10) Last Admin: 06/26/18 13:45 Dose: 10 mg Oxycodone HCl (Oxycontin Extended Release Tab) 20 mg PO Q12 [facility] Last Admin: 06/28/18 08:59 Dose: 20 mg Pantoprazole Sodium (Protonix Ec Tab) 40 mg PO DAILY [facility] Last Admin: 06/28/18 09:01 Dose: 40 mg Sennosides (Senokot Tab) 17.2 mg PO [facility] Last Admin: 06/27/18 21:42 Dose: 17.2 mg Tamsulosin HCl (Flomax) 0.4 mg PO [facility] Last Admin: 06/27/18 21:41 Dose: 0.4 mg - Labs Labs: - Additional Findings Additional findings: - Constitutional Appears: No Acute Distress, Cachectic, Chronically Ill - Head Exam Head Exam: ATRAUMATIC - Eye Exam Eye Exam: EOMI, PERRL - ENT Exam ENT Exam: Normal Oropharynx - Neck Exam Neck exam: Positive for: Full Rom - Respiratory Exam Respiratory Exam: Clear to Auscultation Bilateral, NORMAL BREATHING PATTERN - Cardiovascular Exam Cardiovascular Exam: RRR, +S1, +S2 - GI/Abdominal Exam GI & Abdominal Exam: Normal Bowel Sounds, Soft Additional comments: NT, ND - Back Exam Additional comments: b/l nephrostomy tubes in place, no erythema, no discharge urine in b/l nephrostomy bags yellow - Neurological Exam Additional comments: awake AAo x 2 Laboratory Results - last 72 hr 06/25/18 06/25/18 06/26/18 16:56 22:10 05:45 WBC 4.6 L RBC 3.31 L Hgb 10.2 L D Hct 30.0 L MCV 90.8 D MCH 30.7 MCHC 33.8 RDW 18.7 H Plt Count 128 L Sodium Potassium Chloride Carbon Dioxide Anion Gap BUN Creatinine Est GFR ( Amer) Est GFR (Non-Af Amer) POC Glucose (mg/dL) 107 Random Glucose Calcium Total Bilirubin AST ALT Alkaline Phosphatase Total Protein Albumin Globulin Albumin/Globulin Ratio Urine Color Urine Clarity Urine pH Ur Specific [place] Urine Protein Urine Glucose (UA) Urine Ketones Urine Blood Urine Nitrate Urine Bilirubin Urine Urobilinogen Ur Leukocyte Esterase Urine RBC (Auto) Urine Microscopic WBC Blood Type B POSITIVE Antibody Screen Negative Crossmatch See Detail BBK History Checked Patient has bt 06/26/18 06/26/18 06/26/18 05:45 05:56 10:42 WBC RBC Hgb Hct MCV MCH MCHC RDW Plt Count Sodium 138 Potassium 4.4 Chloride 113 H Carbon Dioxide 21 L Anion Gap 8 L BUN 46 H Creatinine 3.6 H Est GFR ( Amer) 20 Est GFR (Non-Af Amer) 16 POC Glucose (mg/dL) 86 110 Random Glucose 89 Calcium 8.0 L Total Bilirubin 0.8 AST 24 ALT 24 Alkaline Phosphatase 901 H D Total Protein 5.8 L Albumin 2.5 L D Globulin 3.4 Albumin/Globulin Ratio 0.7 L Urine Color Urine Clarity Urine pH Ur Specific [place] Urine Protein Urine Glucose (UA) Urine Ketones Urine Blood Urine Nitrate Urine Bilirubin Urine Urobilinogen Ur Leukocyte Esterase Urine RBC (Auto) Urine Microscopic WBC Blood Type Antibody Screen Crossmatch BBK History Checked 06/26/18 06/26/18 06/27/18 15:56 21:19 05:20 WBC 3.8 L RBC 3.11 L Hgb 9.5 L Hct 28.2 L MCV 90.9 MCH 30.7 MCHC 33.7 RDW 18.8 H Plt Count 141 Sodium Potassium Chloride Carbon Dioxide Anion Gap BUN Creatinine Est GFR ( Amer) Est GFR (Non-Af Amer) POC Glucose (mg/dL) 129 H 114 H Random Glucose Calcium Total Bilirubin AST ALT Alkaline Phosphatase Total Protein Albumin Globulin Albumin/Globulin Ratio Urine Color Urine Clarity Urine pH Ur Specific [place] Urine Protein Urine Glucose (UA) Urine Ketones Urine Blood Urine Nitrate Urine Bilirubin Urine Urobilinogen Ur Leukocyte Esterase Urine RBC (Auto) Urine Microscopic WBC Blood Type Antibody Screen Crossmatch BBK History Checked 06/27/18 06/27/18 06/27/18 05:20 05:32 07:22 WBC RBC Hgb Hct MCV MCH MCHC RDW Plt Count Sodium 140 Potassium 4.2 Chloride 114 H Carbon Dioxide 18 L Anion Gap 12 BUN 44 H Creatinine 3.8 H Est GFR ( Amer) 19 Est GFR (Non-Af Amer) 15 POC Glucose (mg/dL) 101 Random Glucose 99 Calcium 7.7 L Total Bilirubin 0.4 AST 39 ALT 38 Alkaline Phosphatase 978 H Total Protein 5.6 L Albumin 2.4 L Globulin 3.2 Albumin/Globulin Ratio 0.7 L Urine Color Yellow Urine Clarity Cloudy Urine pH 5.0 Ur Specific [place] 1.013 Urine Protein 30 Urine Glucose (UA) Neg Urine Ketones Negative Urine Blood Negative Urine Nitrate Negative Urine Bilirubin Negative Urine Urobilinogen 0.2-1.0 Ur Leukocyte Esterase Small Urine RBC (Auto) 3 Urine Microscopic WBC 6 H Blood Type Antibody Screen Crossmatch BBK History Checked 06/27/18 06/27/18 06/27/18 11:00 16:15 22:12 WBC RBC Hgb Hct MCV MCH MCHC RDW Plt Count Sodium Potassium Chloride Carbon Dioxide Anion Gap BUN Creatinine Est GFR ( Amer) Est GFR (Non-Af Amer) POC Glucose (mg/dL) 147 H 111 H 117 H Random Glucose Calcium Total Bilirubin AST ALT Alkaline Phosphatase Total Protein Albumin Globulin Albumin/Globulin Ratio Urine Color Urine Clarity Urine pH Ur Specific [place] Urine Protein Urine Glucose (UA) Urine Ketones Urine Blood Urine Nitrate Urine Bilirubin Urine Urobilinogen Ur Leukocyte Esterase Urine RBC (Auto) Urine Microscopic WBC Blood Type Antibody Screen Crossmatch BBK History Checked 06/28/18 06/28/18 06/28/18 05:42 11:25 11:51 WBC 3.5 L RBC 3.11 L Hgb 9.7 L Hct 28.4 L MCV 91.1 MCH 31.1 H MCHC 34.1 RDW 18.9 H Plt Count 143 Sodium Potassium Chloride Carbon Dioxide Anion Gap BUN Creatinine Est GFR ( Amer) Est GFR (Non-Af Amer) POC Glucose (mg/dL) 135 H 109 Random Glucose Calcium Total Bilirubin AST ALT Alkaline Phosphatase Total Protein Albumin Globulin Albumin/Globulin Ratio Urine Color Urine Clarity Urine pH Ur Specific [place] Urine Protein Urine Glucose (UA) Urine Ketones Urine Blood Urine Nitrate Urine Bilirubin Urine Urobilinogen Ur Leukocyte Esterase Urine RBC (Auto) Urine Microscopic WBC Blood Type Antibody Screen Crossmatch BBK History Checked 06/28/18 06/28/18 11:51 16:00 WBC RBC Hgb Hct MCV MCH MCHC RDW Plt Count Sodium 144 Potassium 4.1 Chloride 117 H Carbon Dioxide 21 L Anion Gap 10 BUN 41 H Creatinine 3.1 H Est GFR ( Amer) 24 Est GFR (Non-Af Amer) 19 POC Glucose (mg/dL) 144 H Random Glucose 125 H Calcium 8.2 L Total Bilirubin 0.4 AST 31 ALT 44 Alkaline Phosphatase 1020 H Total Protein 6.1 L Albumin 2.6 L Globulin 3.6 Albumin/Globulin Ratio 0.7 L Urine Color Urine Clarity Urine pH Ur Specific [place] Urine Protein Urine Glucose (UA) Urine Ketones Urine Blood Urine Nitrate Urine Bilirubin Urine Urobilinogen Ur Leukocyte Esterase Urine RBC (Auto) Urine Microscopic WBC Blood Type Antibody Screen Crossmatch BBK History Checked Microbiology 06/24/18 19:01 Blood-Venous Blood Culture - Preliminary NO GROWTH AFTER 4 DAYS 06/26/18 08:07 Urine,Kidney Urine Culture - Final No Growth (<1,000 CFU/ML) 06/24/18 13:45 Blood-Venous Blood Culture - Preliminary NO GROWTH AFTER 4 DAYS 06/24/18 13:53 Urine,Kidney Urine Culture - Final No Growth (<1,000 CFU/ML) Assessment and Plan (1) Back pain Status: Acute (2) Malignant neoplasm metastatic from bladder Status: Acute (3) Acute kidney failure Status: Acute - Assessment and Plan (Free Text) Assessment: A/P- 78 year old male with stage 4 bladder cancer with bony mets and obstructive uropathy s/p TURBT and b/l nephrostomy tubes since 11/2017 s/p multiple hospitalizations and multiorganisms UTIs all treated in the past admissions s/p twice nephrostomy tube changes with most recent one in 06/08/2018 admitted with weakness nad low back pain. has remained afebrile no leukocytosis UA- + LE but negative for any nitrates urine cx- negative this admission last admission urien cx- VRE ( was treated with linezolid as per other ID doc seeing pt. that admission). acute renal insufficiemcy minimally better today. blood cx- neg x 2 repeat urine cx 06/26/2018- negative plan- hold off on any IV abx at this time. all labs and notes reviewed.
[2018-06-28 11:54] LABS: HEMOGLOBIN 9.7 g/dL (12.0-18.0); MEAN CELL VOLUME 91.1 fl (80.0-94.0); MEAN CORPUSCULAR HEMOGLOBIN 31.1 pg (27.0-31.0); MEAN CORPUSCULAR HGB CONC 34.1 g/dL (33.0-37.0); RBC 3.11 Mil/uL (4.40-5.90); RED CELL DISTRIBUTION WIDTH 18.9 % (11.5-14.5); WHITE BLOOD COUNT 3.5 K/uL (4.8-10.8)
--- NOTE | 2018-06-28 12:32 | PN ---
DATE: 06/28/2018 SUBJECTIVE: The patient seen and examined. Interim events noted. Consults noted and appreciated. The patient remains in regular medical floor. The patient complains of pain. Denies any other complaint of shortness of breath or chest pain. PHYSICAL EXAMINATION: GENERAL: The patient is in no acute distress although pain medicine. HEART: S1 and S2, normal and regular. LUNGS: Good bilateral air exchange. ABDOMEN: Soft, nontender. EXTREMITIES: No edema. No calf swelling. No tenderness. No acute ischemia. CENTRAL NERVOUS SYSTEM: Exam is essentially unchanged. Nephrostomy tube is in good position and functioning. DIAGNOSTIC DATA: Available diagnostic data reviewed. ASSESSMENT AND PLAN: Overall, the patient's general medical condition is hemodynamically stable although long-term prognosis remains poor. Plan as ordered. Vinay Henderson MD
[2018-06-28 12:34] LABS: ALB/GLOB RATIO 0.7 (1.0-2.1); ALBUMIN 2.6 g/dL (3.5-5.0); CALCIUM 8.2 mg/dL (8.4-10.2)
[2018-06-28] MEDS: Sodium Chloride 0.9% 1,000 ML IV SCH (20:36)
[2018-06-29] MEDS: oxyCODONE 10 mg Immediate Release Tab PO PRN ×4 (04:10→20:38)
[2018-06-29 08:30] LABS: HEMOGLOBIN 9.3 g/dL (12.0-18.0); MEAN CELL VOLUME 90.8 fl (80.0-94.0); MEAN CORPUSCULAR HEMOGLOBIN 31.2 pg (27.0-31.0); MEAN CORPUSCULAR HGB CONC 34.4 g/dL (33.0-37.0); RBC 2.99 Mil/uL (4.40-5.90); RED CELL DISTRIBUTION WIDTH 19.1 % (11.5-14.5); WHITE BLOOD COUNT 3.6 K/uL (4.8-10.8)
[2018-06-29 08:48] LABS: ALB/GLOB RATIO 0.7 (1.0-2.1); ALBUMIN 2.6 g/dL (3.5-5.0); CALCIUM 7.9 mg/dL (8.4-10.2)
[2018-06-29] MEDS: oxyCODONE 20 mg ER Tab (oxyCONTIN) PO SCH ×2 (09:19→21:15)
[2018-06-29] MEDS: Pantoprazole 40 mg EC Tab PO SCH (09:20)
[2018-06-29] MEDS: Sodium Chloride 0.9% 1,000 ML IV SCH ×2 (11:00→20:45)
--- NOTE | 2018-06-29 12:35 | RAD ---
Date of service: 06/29/2018 HISTORY: Throat congestion COMPARISON: 06/15/2018. FINDINGS: Right-sided MediPort terminates in the SVC. LUNGS: The lungs are well inflated and clear. PLEURA: No pleural effusions or pneumothorax. CARDIOVASCULAR: The heart is normal in size. No aortic atherosclerotic calcification present. OSSEOUS STRUCTURES: There is diffuse increased bone density. VISUALIZED UPPER ABDOMEN: Normal. OTHER FINDINGS: None. IMPRESSION: No acute findings. Diffuse osteoblastic metastasis.
--- NOTE | 2018-06-29 12:39 | CP.PCM.PN ---
Subjective - Date & Time of Evaluation Date of Evaluation: 06/29/18 Time of Evaluation: 12:38 - Subjective Subjective: awake and conscious Patient is frail Objective - Vital Signs/Intake and Output Vital Signs (last 24 hours): Temp Pulse Resp BP Pulse Ox 98.4 F 91 H 19 136/62 98 06/29/18 08:13 06/29/18 08:13 06/29/18 08:13 06/29/18 08:13 06/29/18 08:13 Intake and Output: 06/29/18 06/29/18 06:59 18:59 Intake Total 1060 Output Total 1350 Balance -290 - Medications Medications: Current Medications Acetaminophen (Tylenol 325mg Tab) 650 mg PO Q6 PRN PRN Reason: Pain, Mild (1-3) Alprazolam (Xanax) 0.25 mg PO Q6 PRN PRN Reason: Anxiety Stop: 07/01/18 15:44 Last Admin: 06/28/18 15:00 Dose: 0.25 mg Benzocaine/Menthol (Cepacol Sore Throat) 1 navneet PO Q3 PRN PRN Reason: Sore Throat Bupropion HCl (Wellbutrin) 75 mg PO DAILY [facility] Last Admin: 06/29/18 09:20 Dose: 75 mg Sodium Chloride (Sodium Chloride 0.9%) 1,000 mls @ 80 mls/hr IV .[id number] [facility] Last Admin: 06/28/18 20:36 Dose: Not Given Lactulose (Enulose) 20 gm PO DAILY [facility] Last Admin: 06/29/18 09:19 Dose: Not Given Ondansetron HCl (Zofran Inj) 4 mg IVP Q6 PRN PRN Reason: Nausea/Vomiting Oxycodone HCl (Oxycodone Immediate Release Tab) 10 mg PO Q4 PRN PRN Reason: Pain, severe (8-10) Last Admin: 06/29/18 10:58 Dose: 10 mg Oxycodone HCl (Oxycontin Extended Release Tab) 20 mg PO Q12 [facility] Last Admin: 06/29/18 09:19 Dose: 20 mg Pantoprazole Sodium (Protonix Ec Tab) 40 mg PO DAILY [facility] Last Admin: 06/29/18 09:20 Dose: 40 mg Sennosides (Senokot Tab) 17.2 mg PO HS [facility] Last Admin: 06/28/18 21:34 Dose: 17.2 mg Tamsulosin HCl (Flomax) 0.4 mg PO HS [facility] Last Admin: 06/28/18 21:34 Dose: 0.4 mg - Labs Labs: 06/29/18 08:17 06/29/18 08:17 - Constitutional Appears: No Acute Distress - Eye Exam Eye Exam: Conjunctival injection - ENT Exam ENT Exam: Mucous Membranes Moist - Respiratory Exam Respiratory Exam: NORMAL BREATHING PATTERN - Cardiovascular Exam Cardiovascular Exam: absent: Gallop, JVD, Rubs - GI/Abdominal Exam GI & Abdominal Exam: Soft, Normal Bowel Sounds - Extremities Exam Extremities Exam: absent: Calf Tenderness - Back Exam Back Exam: absent: CVA tenderness (L), CVA tenderness (R) - Neurological Exam Neurological Exam: Alert - Psychiatric Exam Psychiatric exam: Normal Affect - Skin Skin Exam: absent: Cyanosis Assessment and Plan (1) Back pain Status: Acute (2) Complicated UTI (urinary tract infection) Status: Acute (3) Acute kidney failure Assessment & Plan: acute kidney injury most likely related to obstructive uropathy related to malfunction of nephrostomy. patient has baseline serum creatinine around 2.5 consistent with stage IV CK D debility Metastatic bladder cancer with status post chemotherapy Anemia DM Recommendation serum creatinine came down 2.5 probably that's his baseline suggest to do renal scan to determine which kidney functioning the best. the rest of the management as per primary team Status: Acute (4) Diabetes 1.5, managed as type 2 Status: Acute (5) Malignant neoplasm metastatic from bladder Status: Acute
[2018-06-30] MEDS: oxyCODONE 10 mg Immediate Release Tab PO PRN ×3 (00:16→13:55)
[2018-06-30] MEDS: Sodium Chloride 0.9% 1,000 ML IV SCH ×2 (03:08→08:32)
[2018-06-30 08:30] LABS: CALCIUM 7.9 mg/dL (8.4-10.2)
[2018-06-30] MEDS: Pantoprazole 40 mg EC Tab PO SCH (08:31)
[2018-06-30] MEDS: oxyCODONE 20 mg ER Tab (oxyCONTIN) PO SCH (08:31)
--- NOTE | 2018-06-30 11:30 | CP.PCM.PN ---
Subjective - Date & Time of Evaluation Date of Evaluation: 06/30/18 Time of Evaluation: 11:29 - Subjective Subjective: no nausea no vomiting Complaining of generalized weakness Objective - Vital Signs/Intake and Output Vital Signs (last 24 hours): Temp Pulse Resp BP Pulse Ox 97.5 F L 88 20 136/56 L 99 06/30/18 08:20 06/30/18 08:20 06/30/18 08:20 06/30/18 08:20 06/30/18 08:20 Intake and Output: 06/30/18 06/30/18 06:59 18:59 Output Total 800 Balance -800 - Medications Medications: Current Medications Acetaminophen (Tylenol 325mg Tab) 650 mg PO Q6 PRN PRN Reason: Pain, Mild (1-3) Alprazolam (Xanax) 0.25 mg PO Q6 PRN PRN Reason: Anxiety Stop: 07/01/18 15:44 Last Admin: 06/30/18 08:31 Dose: 0.25 mg Benzocaine/Menthol (Cepacol Sore Throat) 1 navneet PO Q3 PRN PRN Reason: Sore Throat Last Admin: 06/30/18 00:27 Dose: 1 navneet Bupropion HCl (Wellbutrin) 75 mg PO DAILY [facility] Last Admin: 06/30/18 08:31 Dose: 75 mg Sodium Chloride (Sodium Chloride 0.9%) 1,000 mls @ 80 mls/hr IV .[id number] [facility] Last Admin: 06/30/18 08:32 Dose: Not Given Lactulose (Enulose) 20 gm PO DAILY [facility] Last Admin: 06/30/18 08:32 Dose: Not Given Ondansetron HCl (Zofran Inj) 4 mg IVP Q6 PRN PRN Reason: Nausea/Vomiting Oxycodone HCl (Oxycodone Immediate Release Tab) 10 mg PO Q4 PRN PRN Reason: Pain, severe (8-10) Last Admin: 06/30/18 05:49 Dose: 10 mg Oxycodone HCl (Oxycontin Extended Release Tab) 20 mg PO Q12 [facility] Last Admin: 06/30/18 08:31 Dose: 20 mg Pantoprazole Sodium (Protonix Ec Tab) 40 mg PO DAILY [facility] Last Admin: 06/30/18 08:31 Dose: 40 mg Sennosides (Senokot Tab) 17.2 mg PO [facility] Last Admin: 06/29/18 21:28 Dose: 17.2 mg Tamsulosin HCl (Flomax) 0.4 mg PO [facility] Last Admin: 06/29/18 21:28 Dose: 0.4 mg - Labs Labs: 06/29/18 08:17 06/30/18 07:55 - Constitutional Appears: No Acute Distress - Eye Exam Eye Exam: Conjunctival injection - ENT Exam ENT Exam: Mucous Membranes Moist - Neck Exam Neck Exam: absent: Lymphadenopathy - Respiratory Exam Respiratory Exam: absent: Chest Wall Tenderness - Cardiovascular Exam Cardiovascular Exam: absent: JVD, Rubs - GI/Abdominal Exam GI & Abdominal Exam: Soft, Normal Bowel Sounds - Extremities Exam Extremities Exam: absent: Calf Tenderness - Back Exam Back Exam: absent: CVA tenderness (L), CVA tenderness (R) - Neurological Exam Neurological Exam: Alert Assessment and Plan (1) Back pain Status: Acute (2) Complicated UTI (urinary tract infection) Status: Acute (3) Acute kidney failure Assessment & Plan: Assessment & Plan: acute kidney injury most likely related to obstructive uropathy related to malfunction of nephrostomy. patient has baseline serum creatinine around 2.0 consistent with stage 3 CK D debility Metastatic bladder cancer with status post chemotherapy Anemia DM Recommendation serum creatinine came down 2.0 probably that's his baseline as a nephrostomy functioning kidney function continued to improve. Status: Acute (4) Diabetes 1.5, managed as type 2 Status: Acute (5) Malignant neoplasm metastatic from bladder Status: Acute
--- NOTE | 2018-06-30 15:07 | US ---
Date of service: 06/30/2018 PROCEDURE: Ultrasound of the Kidneys HISTORY: Acute on chronic kidney disease COMPARISON: None available. TECHNIQUE: Sonogram of the kidneys. FINDINGS: RIGHT KIDNEY: Measures: 8.9 cm. Normal cortical thickness and echogenicity. Nonobstructing lower pole calculus, 7 mm. No mass. No hydronephrosis. Nephrostomy tube noted. LEFT KIDNEY: Measures: 12.6 cm. Normal cortical thickness and echogenicity. Multiple nonobstructing calculi. Largest 10 mm mid renal. No solid mass mass or hydronephrosis. Lower pole simple cyst, 1.2 cm. Nephrostomy tube noted. OTHER FINDINGS: None. IMPRESSION: Asymmetry in size of kidneys. Nonobstructing calculus lower pole right kidney and multiple nonobstructing left renal calculi. Bilateral nephrostomy tubes. Lower pole simple cyst left kidney, 12 mm.
--- NOTE | 2018-06-30 15:22 | CP.PCM.PCO ---
Assessment/Plan - Assessment/Plan Assessment (Free Text): Pt stable, renal US report discussed with Dr. Wesley. Pt to f/u with Dr. Wesley in 1 week. Pt seen and cleared for d/c home by Dr. Henderson. Pt and pt's son at bedside aware of plan.
--- NOTE | 2018-06-30 15:59 | PN ---
DATE: 06/29/2018 SUBJECTIVE: The patient seen and examined. Interim events noted. Consults noted and appreciated. The patient remains in regular medical floor, complains of pain controlled with pain medications. PHYSICAL EXAMINATION: GENERAL: The patient is in no acute distress. VITAL SIGNS: Stable. HEART: S1 and S2, normal and regular. LUNGS: Good bilateral air exchange. ABDOMEN: Soft, nontender. The patient has nephrostomy tube, draining urine. EXTREMITIES: No edema. No calf swelling. No tenderness. No acute ischemia. CENTRAL NERVOUS SYSTEM: Essentially unchanged. DIAGNOSTIC DATA: Available diagnostic data reviewed. ASSESSMENT AND PLAN: Overall, the patient's general medical condition is hemodynamically stable. Long-term prognosis remains poor. Plan as ordered. Vinay Henderson MD
--- NOTE | 2018-06-30 16:01 | PN ---
DATE: 06/30/2018 SUBJECTIVE: The patient seen and examined. Interim events noted. The patient remains in regular medical floor. Denies any specific complaint. No specific issue reported by nursing staff. Consults noted and appreciated. The patient complains of same pain related to the cancer. No new complaints. PHYSICAL EXAMINATION: GENERAL: The patient is in no acute distress. VITAL SIGNS: Stable. Physical exam is essentially unchanged. DIAGNOSTIC DATA: Available diagnostic data reviewed. ASSESSMENT AND PLAN: Overall, the patient's general medical condition is hemodynamically stable. Long-term prognosis remains poor due to underlying cancer. Plan as ordered. Vinay Henderson MD
[2018-06-30 16:13] VITALS: BP 140/85; PULSE 81; RESP 18; TEMP 98.4; O2SAT 97
--- NOTE | 2018-06-30 19:52 | CP.PCM.PN ---
Subjective - Date & Time of Evaluation Date of Evaluation: 06/28/18 Time of Evaluation: 12:00 - Subjective Subjective: Feels weak. Objective - Vital Signs/Intake and Output Vital Signs (last 24 hours): Temp Pulse Resp BP Pulse Ox 98.4 F 81 18 140/85 97 06/30/18 16:13 06/30/18 16:13 06/30/18 16:13 06/30/18 16:13 06/30/18 16:13 Intake and Output: 06/30/18 07/01/18 18:59 06:59 Output Total 700 Balance -700 - Medications Medications: Current Medications Acetaminophen (Tylenol 325mg Tab) 650 mg PO Q6 PRN PRN Reason: Pain, Mild (1-3) Alprazolam (Xanax) 0.25 mg PO Q6 PRN PRN Reason: Anxiety Stop: 07/01/18 15:44 Last Admin: 06/30/18 13:55 Dose: 0.25 mg Benzocaine/Menthol (Cepacol Sore Throat) 1 navneet PO Q3 PRN PRN Reason: Sore Throat Last Admin: 06/30/18 00:27 Dose: 1 navneet Bupropion HCl (Wellbutrin) 75 mg PO DAILY [facility] Last Admin: 06/30/18 08:31 Dose: 75 mg Sodium Chloride (Sodium Chloride 0.9%) 1,000 mls @ 80 mls/hr IV .[id number] [facility] Last Admin: 06/30/18 08:32 Dose: Not Given Lactulose (Enulose) 20 gm PO DAILY [facility] Last Admin: 06/30/18 08:32 Dose: Not Given Ondansetron HCl (Zofran Inj) 4 mg IVP Q6 PRN PRN Reason: Nausea/Vomiting Oxycodone HCl (Oxycodone Immediate Release Tab) 10 mg PO Q4 PRN PRN Reason: Pain, severe (8-10) Last Admin: 06/30/18 13:55 Dose: 10 mg Oxycodone HCl (Oxycontin Extended Release Tab) 20 mg PO Q12 [facility] Last Admin: 06/30/18 08:31 Dose: 20 mg Pantoprazole Sodium (Protonix Ec Tab) 40 mg PO DAILY [facility] Last Admin: 06/30/18 08:31 Dose: 40 mg Sennosides (Senokot Tab) 17.2 mg PO HS [facility] Last Admin: 06/29/18 21:28 Dose: 17.2 mg Tamsulosin HCl (Flomax) 0.4 mg PO HS [facility] Last Admin: 06/29/18 21:28 Dose: 0.4 mg - Labs Labs: 06/29/18 08:17 06/30/18 07:55 - Head Exam Head Exam: ATRAUMATIC - Eye Exam Eye Exam: Normal appearance - ENT Exam ENT Exam: Mucous Membranes Dry - Respiratory Exam Respiratory Exam: NORMAL BREATHING PATTERN - Cardiovascular Exam Cardiovascular Exam: +S1, +S2 - GI/Abdominal Exam GI & Abdominal Exam: Normal Bowel Sounds Assessment and Plan (1) Pancytopenia Assessment & Plan: bone metastasis recent radiation s/p 2U PRBC Status: Acute (2) Bladder cancer Assessment & Plan: stage IV has not received chemotherapy in 2-3 months s/p recent palliative radiation to bone metastasis recommend palliative care evaluation past hospice discussion declined Status: Chronic
--- NOTE | 2018-06-30 19:56 | CP.PCM.PN ---
Subjective - Date & Time of Evaluation Date of Evaluation: 06/29/18 Time of Evaluation: 12:00 - Subjective Subjective: Feels weak, less pain. Objective - Vital Signs/Intake and Output Vital Signs (last 24 hours): Temp Pulse Resp BP Pulse Ox 98.4 F 81 18 140/85 97 06/30/18 16:13 06/30/18 16:13 06/30/18 16:13 06/30/18 16:13 06/30/18 16:13 Intake and Output: 06/30/18 07/01/18 18:59 06:59 Output Total 700 Balance -700 - Medications Medications: Current Medications Acetaminophen (Tylenol 325mg Tab) 650 mg PO Q6 PRN PRN Reason: Pain, Mild (1-3) Alprazolam (Xanax) 0.25 mg PO Q6 PRN PRN Reason: Anxiety Stop: 07/01/18 15:44 Last Admin: 06/30/18 13:55 Dose: 0.25 mg Benzocaine/Menthol (Cepacol Sore Throat) 1 navneet PO Q3 PRN PRN Reason: Sore Throat Last Admin: 06/30/18 00:27 Dose: 1 navneet Bupropion HCl (Wellbutrin) 75 mg PO DAILY [facility] Last Admin: 06/30/18 08:31 Dose: 75 mg Sodium Chloride (Sodium Chloride 0.9%) 1,000 mls @ 80 mls/hr IV .[id number] [facility] Last Admin: 06/30/18 08:32 Dose: Not Given Lactulose (Enulose) 20 gm PO DAILY [facility] Last Admin: 06/30/18 08:32 Dose: Not Given Ondansetron HCl (Zofran Inj) 4 mg IVP Q6 PRN PRN Reason: Nausea/Vomiting Oxycodone HCl (Oxycodone Immediate Release Tab) 10 mg PO Q4 PRN PRN Reason: Pain, severe (8-10) Last Admin: 06/30/18 13:55 Dose: 10 mg Oxycodone HCl (Oxycontin Extended Release Tab) 20 mg PO Q12 [facility] Last Admin: 06/30/18 08:31 Dose: 20 mg Pantoprazole Sodium (Protonix Ec Tab) 40 mg PO DAILY [facility] Last Admin: 06/30/18 08:31 Dose: 40 mg Sennosides (Senokot Tab) 17.2 mg PO HS [facility] Last Admin: 06/29/18 21:28 Dose: 17.2 mg Tamsulosin HCl (Flomax) 0.4 mg PO HS [facility] Last Admin: 06/29/18 21:28 Dose: 0.4 mg - Labs Labs: 06/29/18 08:17 06/30/18 07:55 - Head Exam Head Exam: ATRAUMATIC - Eye Exam Eye Exam: Normal appearance - ENT Exam ENT Exam: Mucous Membranes Dry - Respiratory Exam Respiratory Exam: NORMAL BREATHING PATTERN - Cardiovascular Exam Cardiovascular Exam: +S1, +S2 - GI/Abdominal Exam GI & Abdominal Exam: Normal Bowel Sounds Assessment and Plan (1) Pancytopenia Assessment & Plan: bone metastasis recent radiation s/p 2U PRBC Status: Acute (2) Bladder cancer Assessment & Plan: stage IV has not received chemotherapy in 2-3 months s/p recent palliative radiation to bone metastasis recommend palliative care evaluation past hospice discussion declined Status: Chronic
--- NOTE | 2018-06-30 19:57 | CP.PCM.PN ---
Subjective - Date & Time of Evaluation Date of Evaluation: 06/30/18 Time of Evaluation: 13:00 - Subjective Subjective: Feels tired but less pain. Objective - Vital Signs/Intake and Output Vital Signs (last 24 hours): Temp Pulse Resp BP Pulse Ox 98.4 F 81 18 140/85 97 06/30/18 16:13 06/30/18 16:13 06/30/18 16:13 06/30/18 16:13 06/30/18 16:13 Intake and Output: 06/30/18 07/01/18 18:59 06:59 Output Total 700 Balance -700 - Medications Medications: Current Medications Acetaminophen (Tylenol 325mg Tab) 650 mg PO Q6 PRN PRN Reason: Pain, Mild (1-3) Alprazolam (Xanax) 0.25 mg PO Q6 PRN PRN Reason: Anxiety Stop: 07/01/18 15:44 Last Admin: 06/30/18 13:55 Dose: 0.25 mg Benzocaine/Menthol (Cepacol Sore Throat) 1 navneet PO Q3 PRN PRN Reason: Sore Throat Last Admin: 06/30/18 00:27 Dose: 1 navneet Bupropion HCl (Wellbutrin) 75 mg PO DAILY [facility] Last Admin: 06/30/18 08:31 Dose: 75 mg Sodium Chloride (Sodium Chloride 0.9%) 1,000 mls @ 80 mls/hr IV .[id number] [facility] Last Admin: 06/30/18 08:32 Dose: Not Given Lactulose (Enulose) 20 gm PO DAILY [facility] Last Admin: 06/30/18 08:32 Dose: Not Given Ondansetron HCl (Zofran Inj) 4 mg IVP Q6 PRN PRN Reason: Nausea/Vomiting Oxycodone HCl (Oxycodone Immediate Release Tab) 10 mg PO Q4 PRN PRN Reason: Pain, severe (8-10) Last Admin: 06/30/18 13:55 Dose: 10 mg Oxycodone HCl (Oxycontin Extended Release Tab) 20 mg PO Q12 [facility] Last Admin: 06/30/18 08:31 Dose: 20 mg Pantoprazole Sodium (Protonix Ec Tab) 40 mg PO DAILY [facility] Last Admin: 06/30/18 08:31 Dose: 40 mg Sennosides (Senokot Tab) 17.2 mg PO HS [facility] Last Admin: 06/29/18 21:28 Dose: 17.2 mg Tamsulosin HCl (Flomax) 0.4 mg PO HS [facility] Last Admin: 06/29/18 21:28 Dose: 0.4 mg - Labs Labs: 06/29/18 08:17 06/30/18 07:55 - Head Exam Head Exam: ATRAUMATIC - Eye Exam Eye Exam: Normal appearance - ENT Exam ENT Exam: Mucous Membranes Dry - Respiratory Exam Respiratory Exam: NORMAL BREATHING PATTERN - Cardiovascular Exam Cardiovascular Exam: +S1, +S2 - GI/Abdominal Exam GI & Abdominal Exam: Normal Bowel Sounds Assessment and Plan (1) Pancytopenia Assessment & Plan: bone metastasis recent radiation s/p 2U PRBC Status: Acute (2) Bladder cancer Assessment & Plan: stage IV has not received chemotherapy in 2-3 months s/p recent palliative radiation to bone metastasis recommend palliative care evaluation past hospice discussion declined Status: Chronic
--- NOTE | 2018-07-01 10:37 | PN ---
DATE: 06/29/2018 SUBJECTIVE: The patient seen and examined. Interim events noted. Consults noted and appreciated. The patient remains in regular medical floor. The patient is sleeping, arousable. Complains of pain on waking up. No new complaints other than chronic leg pain, which is controlled with medications. PHYSICAL EXAMINATION: GENERAL: The patient is in no acute distress. VITAL SIGNS: Stable. HEART EXAM: S1 and S2. Normal and regular. LUNGS: Good bilateral air exchange. ABDOMEN: Soft and nontender. EXTREMITY EXAM: No edema. No calf swelling. No tenderness. No acute ischemia. SEPTIC TANK INSTALLER EXAM: Essentially unchanged. The patient has nephrostomy tube, which is draining. DIAGNOSTIC DATA: Available diagnostic data reviewed. ASSESSMENT AND PLAN: Overall, the patient's general medical condition is stable. Long-term prognosis remains poor due to terminal cancer. Plan as ordered. Vinay Henderson MD
== END 2018-06-30 20:48 | disposition home health service (06) | DRG 683 ==
LOC: H.ER 12:44 → H.ERHOLD 14:40 → H.MEDSURG1 20:13 → OBSVTOIN 06-26 19:00
PROVIDERS: ADMIT Internal Medicine; ATTEND Internal Medicine
PROC: 30233N1 Transfusion of Nonautologous Red Blood Cells into Peripheral Vein, Percutaneous Approach (ICD-10-PCS; principal; 2018-06-25)
DX: N17.9 Acute kidney failure, unspecified (principal); N39.0 Urinary tract infection, site not specified; N13.8 Other obstructive and reflux uropathy; D61.818 Other pancytopenia; C79.51 Secondary malignant neoplasm of bone; C77.9 Secondary and unspecified malignant neoplasm of lymph node, unspecified; D64.81 Anemia due to antineoplastic chemotherapy; G89.3 Neoplasm related pain (acute) (chronic); E11.9 Type 2 diabetes mellitus without complications; Z16.21 Resistance to vancomycin; Z93.6 Other artificial openings of urinary tract status; Z85.51 Personal history of malignant neoplasm of bladder; Z85.46 Personal history of malignant neoplasm of prostate; Z92.21 Personal history of antineoplastic chemotherapy; Z92.3 Personal history of irradiation; Z87.891 Personal history of nicotine dependence; Z87.440 Personal history of urinary (tract) infections; Z88.6 Allergy status to analgesic agent

== ENCOUNTER 2018-06-30 21:44 | Inpatient (IN) | payer MEDICARE ==
--- NOTE | 2018-06-30 22:20 | ED PDOC ---
HPI: General Adult Time Seen by Provider: 06/30/18 21:47 Chief Complaint (Nursing): Medical Clearance Chief Complaint (Provider): Medical clearance History Per: EMS Recently: Hospitalized Additional Complaint(s): 78yo [place] male, with history of bladder cancer with mets, bilateral nephrostomy, renal insufficiency, brought to ER by EMS for admission. Patient was admitted on 06/[address] Henderson (his PMD) due to chronic back pain and patient was discharged today. When EMS took patient to his home, they were informed patient was evicted 1 week ago. Upon recommendation from Nursing sales department supervisor and Dr. Henderson, patient brought back to ER for re-admission. Patient currently complaining of his chronic back pain. No additional complaints. PMD: Dr. Henderson Past Medical History Reviewed: Historical Data, Nursing Documentation, Vital Signs Vital Signs: Last Vital Signs Temp 97.8 F 06/30/18 21:45 Pulse 78 06/30/18 21:45 Resp 18 06/30/18 21:45 BP 128/88 06/30/18 21:45 Pulse Ox 98 06/30/18 21:45 - Medical History PMH: Anemia, Benign Prostatic Hyperplasia, Depression, Diabetes, Malignancy (advanced metastatic cancer), Peripheral Edema (BLE), Chronic Pain (Back ) Denies: HIV, Chronic Kidney Disease - Surgical History Surgical History: Hernia Repair - Family History Family History: States: No Known Family Hx, Unknown Family Hx - Home Medications Home Medications: Ambulatory Orders Medication Instructions Recorded RX: Tamsulosin [Flomax] 0.4 mg PO HS 02/12/18 RX: Lactulose [Enulose] 20 gm PO DAILY [facility] 06/08/18 RX: buPROPion [Wellbutrin] 75 mg PO DAILY tab 06/08/18 RX: oxyCODONE [oxyCODONE Immediate 10 mg PO Q4 PRN tab 06/08/18 Release Tab] RX: ALPRAZolam [Xanax] 0.25 mg PO Q6 PRN tab 06/15/18 RX: oxyCODONE [oxyCONTIN Extended 20 mg PO Q12 tabsr 06/15/18 Release Tab] RX: Docusate Sodium/Sennosides A 1 tab PO HS tab 06/17/18 [Senokot S 50 MG-8.6 MG] - Allergies Allergies/Adverse Reactions: Allergies Allergy/AdvReac Type Severity Reaction Status Date / Time aspirin Allergy DIZZINESS Verified 06/24/18 12:51 Review of Systems ROS Statement: Except As Marked, All Systems Reviewed And Found Negative Musculoskeletal: Positive for: Back Pain (chronic) Physical Exam - Reviewed Nursing Documentation Reviewed: Yes Vital Signs Reviewed: Yes - Physical Exam Appears: Positive for: Non-toxic Head Exam: Positive for: ATRAUMATIC, NORMAL INSPECTION, NORMOCEPHALIC Skin: Positive for: Normal Color Neck: Positive for: Supple Cardiovascular/Chest: Positive for: Regular Rate, Rhythm Respiratory: Positive for: Normal Breath Sounds Gastrointestinal/Abdominal: Positive for: Normal Exam Back: Positive for: Other (bilateral nephrostomies) Extremity: Positive for: Normal ROM Neurologic/Psych: Positive for: Alert, Oriented - ECG O2 Sat by Pulse Oximetry: 98 (RA) Pulse Ox Interpretation: Normal Medical Decision Making Medical Decision Making: Impression: 78yo male, brought in for readmission due to tenuous social situation Plan: -- Case discussed with Dr. Henderson and patient to be admitted under his service. Diagnosis: Metastatic bladder cancer, back pain. Scribe Attestation: Documented by Lindsay Gee, acting as a scribe for Francois Polo MD Provider Scribe Attestation: All medical record entries made by the Scribe were at my direction and personally dictated by me. I have reviewed the chart and agree that the record accurately reflects my personal performance of the history, physical exam, medical decision making, and the department course for this patient. I have also personally directed, reviewed, and agree with the discharge instructions and disposition. Disposition - Clinical Impression Clinical Impression: Bladder cancer, Low back pain - Patient ED Disposition Is Patient to be Admitted: Yes - Disposition Disposition Time: 22:00 Condition: FAIR
[2018-07-01] MEDS ORDERED: oxyCODONE 10 mg Immediate Release Tab PO ONE (05:44)
[2018-07-01 08:21] LABS: BASO % 0.7 % (0.0-2.0); EOS # 0.2 K/uL (0.0-0.7); EOS % 4.9 % (0.0-4.0); HEMOGLOBIN 9.1 g/dL (12.0-18.0); LYMPH # 0.6 K/uL (1.0-4.3); LYMPH % 14.8 % (20.0-40.0); MEAN CELL VOLUME 90.4 fl (80.0-94.0); MEAN CORPUSCULAR HEMOGLOBIN 30.5 pg (27.0-31.0); MEAN CORPUSCULAR HGB CONC 33.7 g/dL (33.0-37.0); MEAN PLATELET VOLUME 6.3 fl (7.2-11.7); MONO # 0.4 K/uL (0.0-0.8); MONO % 9.3 % (0.0-10.0); NEUT # 2.8 K/uL (1.8-7.0); NEUT % 70.3 % (50.0-75.0); RBC 2.98 Mil/uL (4.40-5.90); RED CELL DISTRIBUTION WIDTH 18.5 % (11.5-14.5)
[2018-07-01 08:31] LABS: ALB/GLOB RATIO 0.7 (1.0-2.1); ALBUMIN 2.5 g/dL (3.5-5.0); CALCIUM 7.6 mg/dL (8.4-10.2)
[2018-07-01] MEDS: oxyCODONE 20 mg ER Tab (oxyCONTIN) PO SCH ×2 (08:35→20:51)
[2018-07-01] MEDS: Enoxaparin 30 mg Syringe SC SCH (08:36)
--- NOTE | 2018-07-01 10:00 | CP.PCM.CON ---
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 Patient has been in the hospital in and out with chemotherapy among other things. His serum creatinine baseline in the range of 2.5 the patient has problem with the nephrostomy to require to be changes and flushed intermittently. Past medical surgical history related to advanced bladder cancer . diabetes mellitus. Social history not contributory patient is former smoker Review of Systems - Constitutional Constitutional: Anorexia. absent: Chills - Cardiovascular Cardiovascular: absent: Chest Pain, Dyspnea, Leg Edema - Respiratory Respiratory: absent: Cough, Hemoptysis - Gastrointestinal Gastrointestinal: absent: Abdominal Pain - Musculoskeletal Musculoskeletal: Muscle Weakness - Neurological Neurological: absent: Confusion, Focal Weakness, Vertigo - Hematologic/Lymphatic Hematologic: absent: Easy Bleeding Past Patient History - Infectious Disease Hx of Infectious Diseases: None - Past Medical History & Family History Past Medical History?: Yes - Past Social History Smoking Status: Former Smoker - CARDIAC Hx Peripheral Edema: Yes (BLE) - PULMONARY Hx Respiratory Disorders: No - NEUROLOGICAL Hx Neurological Disorder: No - HEENT Hx HEENT Problems: No - RENAL Hx Chronic Kidney Disease: No - ENDOCRINE/METABOLIC Hx Endocrine Disorders: Yes Hx Diabetes Mellitus Type 2: Yes - HEMATOLOGICAL/ONCOLOGICAL Hx Anemia: Yes Hx Human Immunodeficiency Virus (HIV): No - INTEGUMENTARY Hx Dermatological Problems: No - MUSCULOSKELETAL/RHEUMATOLOGICAL Hx Musculoskeletal Disorders: No Hx Falls: No - GASTROINTESTINAL Hx Gastrointestinal Disorders: No Other/Comment: TURBT - GENITOURINARY/GYNECOLOGICAL Hx Genitourinary Disorders: Yes 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) Hx Prostate Problems: Yes Other/Comment: B/L Nephrostomy tubes; HX OBSTRUCTIVE UROPATHY - PSYCHIATRIC Hx Depression: Yes - SURGICAL HISTORY Hx Herniorrhaphy: Yes Other/Comment: TURBT - ANESTHESIA Hx Anesthesia: Yes Hx Anesthesia Reactions: No Hx Malignant Hyperthermia: No Meds Allergies/Adverse Reactions: Allergies Allergy/AdvReac Type Severity Reaction Status Date / Time aspirin Allergy DIZZINESS Verified 06/24/18 12:51 - Medications Medications: Current Medications Alprazolam (Xanax) 0.25 mg PO Q6 PRN PRN Reason: Anxiety Stop: 07/08/18 06:32 Last Admin: 07/01/18 08:35 Dose: 0.25 mg Bupropion HCl (Wellbutrin) 75 mg PO DAILY [facility] Last Admin: 07/01/18 08:36 Dose: 75 mg Enoxaparin Sodium (Lovenox) 30 mg SC DAILY [facility]; Protocol Last Admin: 07/01/18 08:36 Dose: 30 mg Lactulose (Enulose) 20 gm PO DAILY [facility] Last Admin: 07/01/18 08:35 Dose: Not Given Oxycodone HCl (Oxycodone Immediate Release Tab) 10 mg PO Q4 PRN PRN Reason: Pain, severe (8-10) Oxycodone HCl (Oxycontin Extended Release Tab) 20 mg PO Q12 [facility] Last Admin: 07/01/18 08:35 Dose: 20 mg Senna/Docusate Sodium (Senokot S 50 Mg-8.6 Mg) 1 tab PO HS [facility] Tamsulosin HCl (Flomax) 0.4 mg PO HS [facility] Physical Exam - Constitutional Appears: No Acute Distress - Eye Exam Eye Exam: Conjunctival injection - ENT Exam ENT Exam: Mucous Membranes Moist - Respiratory Exam Respiratory Exam: NORMAL BREATHING PATTERN. absent: Chest Wall Tenderness - Cardiovascular Exam Cardiovascular Exam: REGULAR RHYTHM. absent: Gallop, RRR, Rubs - GI/Abdominal Exam GI & Abdominal Exam: Normal Bowel Sounds - Extremities Exam Extremities exam: Negative for: calf tenderness - Back Exam Back exam: absent: CVA tenderness (L), CVA tenderness (R) - Neurological Exam Neurological exam: Alert - Psychiatric Exam Psychiatric exam: Normal Affect Results - Vital Signs Recent Vital Signs: Last Vital Signs Temp 98.0 F 07/01/18 08:01 Pulse 85 07/01/18 08:01 Resp 19 07/01/18 08:01 BP 138/52 L 07/01/18 08:01 Pulse Ox 96 07/01/18 08:01 - Labs Result Diagrams: 07/01/18 08:11 07/01/18 08:11 Labs: Laboratory Results - last 24 hr 07/01/18 07/01/18 08:11 08:11 WBC 4.0 L RBC 2.98 L Hgb 9.1 L Hct 26.9 L MCV 90.4 MCH 30.5 MCHC 33.7 RDW 18.5 H Plt Count 143 MPV 6.3 L Neut % (Auto) 70.3 Lymph % (Auto) 14.8 L [place] % (Auto) 9.3 Eos % (Auto) 4.9 H Baso % (Auto) 0.7 Neut # (Auto) 2.8 Lymph # (Auto) 0.6 L [place] # (Auto) 0.4 Eos # (Auto) 0.2 Baso # (Auto) 0.0 Sodium 145 Potassium 3.6 Chloride 118 H Carbon Dioxide 22 Anion Gap 9 L BUN 24 H Creatinine 1.6 H Est GFR ( Amer) 51 Est GFR (Non-Af Amer) 42 Random Glucose 94 Calcium 7.6 L Total Bilirubin 0.5 AST 23 ALT 35 Alkaline Phosphatase 993 H Total Protein 5.9 L Albumin 2.5 L Globulin 3.4 Albumin/Globulin Ratio 0.7 L Assessment & Plan (1) Acute kidney failure Assessment and Plan: acute kidney injury most likely related to obstructive uropathy related to malfunction of nephrostomy. patient has baseline serum creatinine around 2.0 consistent with stage 3 CK D debility Metastatic bladder cancer with status post chemotherapy Anemia DM Recommendation serum creatinine came down 2.0 probably that's his baseline as a nephrostomy functioning kidney function stable. Status: Acute (2) Anemia Status: Acute (3) Diabetes 1.5, managed as type 2 Status: Acute
[2018-07-01] MEDS: oxyCODONE 10 mg Immediate Release Tab PO PRN ×2 (10:34→16:24)
--- NOTE | 2018-07-01 13:50 | CP.PCM.HP ---
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 Patient discharged home yesterday and when EMS took patient to his home, they were informed patient was evicted 1 week ago. Upon recommendation from nursing heel room supervisor and Dr. Henderson, patient brought back to ER for re-admission. Patient currently complaining of his chronic back pain. No additional complaints. Denies any chest pain, dyspnea, nausea, vomiting, fever or chills. PMD: Dr Henderson PMH: DMII, metastatic urothelial cancer, VRE faecium UTI PSH: Hernia repair, B/L nephrostomy tubes Family history: Denies hematologic and oncologic problems SH: Former tobacco, denies alcohol, and illicit drug use. Allergies: Aspirin Meds: see bellow Present on Admission - Present on Admission Any Indicators Present on Admission: No Review of Systems - Review of Systems All systems: reviewed and no additional remarkable complaints except (HPI) Past Patient History - Infectious Disease Hx of Infectious Diseases: None - Past Medical History & Family History Past Medical History?: Yes - Past Social History Smoking Status: Former Smoker - CARDIAC Hx Peripheral Edema: Yes (BLE) - PULMONARY Hx Respiratory Disorders: No - NEUROLOGICAL Hx Neurological Disorder: No - HEENT Hx HEENT Problems: No - RENAL Hx Chronic Kidney Disease: No - ENDOCRINE/METABOLIC Hx Endocrine Disorders: Yes Hx Diabetes Mellitus Type 2: Yes - HEMATOLOGICAL/ONCOLOGICAL Hx Anemia: Yes Hx Human Immunodeficiency Virus (HIV): No - INTEGUMENTARY Hx Dermatological Problems: No - MUSCULOSKELETAL/RHEUMATOLOGICAL Hx Musculoskeletal Disorders: No Hx Falls: No - GASTROINTESTINAL Hx Gastrointestinal Disorders: No Other/Comment: TURBT - GENITOURINARY/GYNECOLOGICAL Hx Genitourinary Disorders: Yes 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) Hx Prostate Problems: Yes Other/Comment: B/L Nephrostomy tubes; HX OBSTRUCTIVE UROPATHY - PSYCHIATRIC Hx Depression: Yes - SURGICAL HISTORY Hx Herniorrhaphy: Yes Other/Comment: TURBT - ANESTHESIA Hx Anesthesia: Yes Hx Anesthesia Reactions: No Hx Malignant Hyperthermia: No Meds Allergies/Adverse Reactions: Allergies Allergy/AdvReac Type Severity Reaction Status Date / Time aspirin Allergy DIZZINESS Verified 06/24/18 12:51 Physical Exam - Constitutional Appears: No Acute Distress - Head Exam Head Exam: NORMAL INSPECTION - Eye Exam Eye Exam: EOMI, PERRL - Respiratory Exam Respiratory Exam: Clear to Auscultation Bilateral, NORMAL BREATHING PATTERN - Cardiovascular Exam Cardiovascular Exam: REGULAR RHYTHM, +S1, +S2 - GI/Abdominal Exam GI & Abdominal Exam: Soft. absent: Distended, Tenderness - Extremities Exam Extremities exam: Negative for: calf tenderness - Back Exam Back exam: paraspinal tenderness, vertebral tenderness - Neurological Exam Neurological exam: Alert, Oriented x3 - Skin Skin Exam: Dry, Warm Results - Vital Signs Recent Vital Signs: Last Vital Signs Temp 98.0 F 07/01/18 08:01 Pulse 85 07/01/18 08:01 Resp 19 07/01/18 08:01 BP 138/52 L 07/01/18 08:01 Pulse Ox 96 07/01/18 08:01 - Labs Result Diagrams: 07/01/18 08:11 07/01/18 08:11 Labs: Laboratory Results - last 24 hr 07/01/18 07/01/18 07/01/18 08:11 08:11 10:55 WBC 4.0 L RBC 2.98 L Hgb 9.1 L Hct 26.9 L MCV 90.4 MCH 30.5 MCHC 33.7 RDW 18.5 H Plt Count 143 MPV 6.3 L Neut % (Auto) 70.3 Lymph % (Auto) 14.8 L [place] % (Auto) 9.3 Eos % (Auto) 4.9 H Baso % (Auto) 0.7 Neut # (Auto) 2.8 Lymph # (Auto) 0.6 L [place] # (Auto) 0.4 Eos # (Auto) 0.2 Baso # (Auto) 0.0 Sodium 145 Potassium 3.6 Chloride 118 H Carbon Dioxide 22 Anion Gap 9 L BUN 24 H Creatinine 1.6 H Est GFR ( Amer) 51 Est GFR (Non-Af Amer) 42 POC Glucose (mg/dL) 147 H Random Glucose 94 Calcium 7.6 L Total Bilirubin 0.5 AST 23 ALT 35 Alkaline Phosphatase 993 H Total Protein 5.9 L Albumin 2.5 L Globulin 3.4 Albumin/Globulin Ratio 0.7 L Assessment & Plan - Assessment and Plan (Free Text) Assessment: 78 year old male with a history of DM, 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 Homeless. Plan: - Pain management - afebrile, VSS - ID consult, recommeds appreciated - Hematology consult, recommeds appreciated. - Nephro consulted - SW referral - PT/OT eval - Resume home medications - Rest of the plan as ordered Case seen and examined with Dr Henderson <Vinay Henderson - Last Filed: 07/05/18 14:38> Results - Vital Signs Recent Vital Signs: Last Vital Signs Temp 98.5 F 07/05/18 08:44 Pulse 73 07/05/18 08:44 Resp 22 07/05/18 08:44 BP 150/75 07/05/18 08:44 Pulse Ox 100 07/05/18 08:44 - Labs Result Diagrams: 07/05/18 06:15 07/04/18 05:55 Labs: Laboratory Results - last 24 hr 07/04/18 07/04/18 07/04/18 06:32 16:03 21:42 WBC RBC Hgb Hct MCV MCH MCHC RDW Plt Count POC Glucose (mg/dL) 95 101 109 07/05/18 07/05/18 07/05/18 05:53 06:15 11:47 WBC 5.4 RBC 2.98 L Hgb 9.2 L Hct 27.2 L MCV 91.4 MCH 31.1 H MCHC 34.0 RDW 18.8 H Plt Count 105 L POC Glucose (mg/dL) 89 95 Assessment & Plan - Assessment and Plan (Free Text) Assessment: Patient was personally seen and examined by me in rounds with residents. Available labs and diagnostic data reviewed. Case, Patient's condition and management plan discussed with residents in rounds. Agree with resident's progress note. Plan: As ordered.
[2018-07-01 15:21] VITALS: BMI 25.0
[2018-07-01] MEDS: Docusate-Senna 50 mg-8.6 mg Tab PO SCH (20:59)
[2018-07-02 07:03] LABS: BASO % 0.8 % (0.0-2.0); EOS # 0.3 K/uL (0.0-0.7); EOS % 6.3 % (0.0-4.0); HEMOGLOBIN 9.1 g/dL (12.0-18.0); LYMPH # 0.6 K/uL (1.0-4.3); LYMPH % 13.8 % (20.0-40.0); MEAN CELL VOLUME 90.9 fl (80.0-94.0); MEAN CORPUSCULAR HEMOGLOBIN 30.7 pg (27.0-31.0); MEAN CORPUSCULAR HGB CONC 33.8 g/dL (33.0-37.0); MEAN PLATELET VOLUME 6.4 fl (7.2-11.7); MONO # 0.4 K/uL (0.0-0.8); MONO % 9.5 % (0.0-10.0); NEUT # 2.8 K/uL (1.8-7.0); NEUT % 69.6 % (50.0-75.0); NRBC % 0.1 % (0.0-0.0); RBC 2.96 Mil/uL (4.40-5.90); RED CELL DISTRIBUTION WIDTH 18.8 % (11.5-14.5)
[2018-07-02 07:15] LABS: ALBUMIN 2.5 g/dL (3.5-5.0); CALCIUM 7.5 mg/dL (8.4-10.2)
[2018-07-02 07:16] LABS: ALB/GLOB RATIO 0.7 (1.0-2.1)
[2018-07-02] MEDS ORDERED: Potassium Chloride 20 mEq ER Tab PO ONE (08:00)
[2018-07-02] MEDS: oxyCODONE 20 mg ER Tab (oxyCONTIN) PO SCH ×2 (08:29→21:38)
[2018-07-02] MEDS: Enoxaparin 30 mg Syringe SC SCH (08:30)
--- NOTE | 2018-07-02 11:46 | CP.PCM.CON ---
History of Present Illness - History of Present Illness History of Present Illness: ID consult requested for h/o VRE UTI and multiple UTIs in the past. HPI- Patient is a 78 y/o male known to me from some of his previous hospital admission s for UTI. Pt. 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 Pt. has not received any further chemo in past few months secondary to weakness and multiple hospitlaizations as per oncologist . however, he has received radiation for pain control as per oncologist's note. I'm asked to see him to see whether he requires antibiotics or not since since he has h/o recent VRE last admission for which he was treated with full course of linezolid ( I was not consulted during that admission). currently pt. has been afebrile and normal wbc count and negative urine cx this past recent admission. pt. is resting in bed but he is weaker than other admissions. He denies any fever but does get chills. he denies any nausea or vomiting, denies any abdominal pain but does c/o back pain chronic. denies any cough or sob. denies any chest pain Past medical history: DM, urothelial cancer Past surgical history: Hernia repair Family history: Denies hematologic and oncologic problems Social history: Former tobacco, denies alcohol, and illicit drug use. Allergies: Aspirin Review of Systems - Review of Systems Review of Systems: ROS- He denies any fever but does get chills. he denies any nausea or vomiting, denies any abdominal pain but does c/o back pain chronic. denies any cough or sob. denies any chest pain Past Patient History - Infectious Disease Hx of Infectious Diseases: None - Past Medical History & Family History Past Medical History?: Yes - Past Social History Smoking Status: Former Smoker - CARDIAC Hx Peripheral Edema: Yes (BLE) - PULMONARY Hx Respiratory Disorders: No - NEUROLOGICAL Hx Neurological Disorder: No - HEENT Hx HEENT Problems: No - RENAL Hx Chronic Kidney Disease: No - ENDOCRINE/METABOLIC Hx Endocrine Disorders: Yes Hx Diabetes Mellitus Type 2: Yes - HEMATOLOGICAL/ONCOLOGICAL Hx Anemia: Yes - INTEGUMENTARY Hx Dermatological Problems: No - MUSCULOSKELETAL/RHEUMATOLOGICAL Hx Musculoskeletal Disorders: No Hx Falls: No - GASTROINTESTINAL Hx Gastrointestinal Disorders: No Other/Comment: TURBT - GENITOURINARY/GYNECOLOGICAL Hx Genitourinary Disorders: Yes 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) Hx Prostate Problems: Yes Other/Comment: B/L Nephrostomy tubes; HX OBSTRUCTIVE UROPATHY - PSYCHIATRIC Hx Depression: Yes - SURGICAL HISTORY Hx Herniorrhaphy: Yes Other/Comment: TURBT - ANESTHESIA Hx Anesthesia: Yes Hx Anesthesia Reactions: No Hx Malignant Hyperthermia: No Meds Allergies/Adverse Reactions: Allergies Allergy/AdvReac Type Severity Reaction Status Date / Time aspirin Allergy DIZZINESS Verified 06/24/18 12:51 - Medications Medications: Current Medications Alprazolam (Xanax) 0.25 mg PO Q6 PRN PRN Reason: Anxiety Stop: 07/08/18 06:32 Last Admin: 07/02/18 08:29 Dose: 0.25 mg Bupropion HCl (Wellbutrin) 75 mg PO DAILY [facility] Last Admin: 07/02/18 08:29 Dose: 75 mg Enoxaparin Sodium (Lovenox) 30 mg SC DAILY [facility]; Protocol Last Admin: 07/02/18 08:30 Dose: 30 mg Lactulose (Enulose) 20 gm PO DAILY [facility] Last Admin: 07/02/18 08:30 Dose: Not Given Oxycodone HCl (Oxycodone Immediate Release Tab) 10 mg PO Q4 PRN PRN Reason: Pain, severe (8-10) Last Admin: 07/01/18 16:24 Dose: 10 mg Oxycodone HCl (Oxycontin Extended Release Tab) 20 mg PO Q12 [facility] Last Admin: 07/02/18 08:29 Dose: 20 mg Senna/Docusate Sodium (Senokot S 50 Mg-8.6 Mg) 1 tab PO HS [facility] Last Admin: 07/01/18 20:59 Dose: 1 tab Tamsulosin HCl (Flomax) 0.4 mg PO HS [facility] Last Admin: 07/01/18 20:59 Dose: 0.4 mg Physical Exam - Constitutional Appears: No Acute Distress - Head Exam Head Exam: ATRAUMATIC - Eye Exam Eye Exam: EOMI, PERRL - ENT Exam ENT Exam: Normal Oropharynx - Neck Exam Neck exam: Positive for: Full Rom - Respiratory Exam Respiratory Exam: Clear to Auscultation Bilateral, NORMAL BREATHING PATTERN - Cardiovascular Exam Cardiovascular Exam: RRR, +S1, +S2 - GI/Abdominal Exam GI & Abdominal Exam: Normal Bowel Sounds, Soft Additional comments: NT, ND - Extremities Exam Extremities exam: Positive for: normal inspection - Back Exam Additional comments: b/l nephrostomy tubes in place, no surrounding erythema urine in bag clear b/l - Neurological Exam Neurological exam: Alert, Oriented x3 Results - Vital Signs Recent Vital Signs: Last Vital Signs Temp 98.3 F 07/02/18 08:02 Pulse 86 07/02/18 08:02 Resp 19 07/02/18 08:02 BP 133/66 07/02/18 08:02 Pulse Ox 97 07/02/18 08:02 - Labs Result Diagrams: 07/02/18 05:25 07/02/18 05:25 Labs: Laboratory Results - last 24 hr 07/01/18 07/01/18 07/02/18 16:37 21:42 05:25 WBC 4.0 L RBC 2.96 L Hgb 9.1 L Hct 26.9 L MCV 90.9 MCH 30.7 MCHC 33.8 RDW 18.8 H Plt Count 139 MPV 6.4 L Neut % (Auto) 69.6 Lymph % (Auto) 13.8 L [place] % (Auto) 9.5 Eos % (Auto) 6.3 H Baso % (Auto) 0.8 Neut # (Auto) 2.8 Lymph # (Auto) 0.6 L [place] # (Auto) 0.4 Eos # (Auto) 0.3 Baso # (Auto) 0.0 Sodium Potassium Chloride Carbon Dioxide Anion Gap BUN Creatinine Est GFR ( Amer) Est GFR (Non-Af Amer) POC Glucose (mg/dL) 106 116 H Random Glucose Calcium Total Bilirubin AST ALT Alkaline Phosphatase Total Protein Albumin Globulin Albumin/Globulin Ratio 07/02/18 07/02/18 05:25 11:18 WBC RBC Hgb Hct MCV MCH MCHC RDW Plt Count MPV Neut % (Auto) Lymph % (Auto) [place] % (Auto) Eos % (Auto) Baso % (Auto) Neut # (Auto) Lymph # (Auto) [place] # (Auto) Eos # (Auto) Baso # (Auto) Sodium 144 Potassium 3.2 L Chloride 116 H Carbon Dioxide 24 Anion Gap 7 L BUN 22 H Creatinine 1.5 Est GFR ( Amer) 54 Est GFR (Non-Af Amer) 45 POC Glucose (mg/dL) 175 H Random Glucose 92 Calcium 7.5 L Total Bilirubin 0.4 AST 23 ALT 28 Alkaline Phosphatase 1042 H Total Protein 5.9 L Albumin 2.5 L Globulin 3.4 Albumin/Globulin Ratio 0.7 L Laboratory Results - last 72 hr 07/01/18 07/01/18 07/01/18 08:11 08:11 10:55 WBC 4.0 L RBC 2.98 L Hgb 9.1 L Hct 26.9 L MCV 90.4 MCH 30.5 MCHC 33.7 RDW 18.5 H Plt Count 143 MPV 6.3 L Neut % (Auto) 70.3 Lymph % (Auto) 14.8 L [place] % (Auto) 9.3 Eos % (Auto) 4.9 H Baso % (Auto) 0.7 Neut # (Auto) 2.8 Lymph # (Auto) 0.6 L [place] # (Auto) 0.4 Eos # (Auto) 0.2 Baso # (Auto) 0.0 Sodium 145 Potassium 3.6 Chloride 118 H Carbon Dioxide 22 Anion Gap 9 L BUN 24 H Creatinine 1.6 H Est GFR ( Amer) 51 Est GFR (Non-Af Amer) 42 POC Glucose (mg/dL) 147 H Random Glucose 94 Calcium 7.6 L Total Bilirubin 0.5 AST 23 ALT 35 Alkaline Phosphatase 993 H Total Protein 5.9 L Albumin 2.5 L Globulin 3.4 Albumin/Globulin Ratio 0.7 L 07/01/18 07/01/18 07/02/18 16:37 21:42 05:25 WBC 4.0 L RBC 2.96 L Hgb 9.1 L Hct 26.9 L MCV 90.9 MCH 30.7 MCHC 33.8 RDW 18.8 H Plt Count 139 MPV 6.4 L Neut % (Auto) 69.6 Lymph % (Auto) 13.8 L [place] % (Auto) 9.5 Eos % (Auto) 6.3 H Baso % (Auto) 0.8 Neut # (Auto) 2.8 Lymph # (Auto) 0.6 L [place] # (Auto) 0.4 Eos # (Auto) 0.3 Baso # (Auto) 0.0 Sodium Potassium Chloride Carbon Dioxide Anion Gap BUN Creatinine Est GFR ( Amer) Est GFR (Non-Af Amer) POC Glucose (mg/dL) 106 116 H Random Glucose Calcium Total Bilirubin AST ALT Alkaline Phosphatase Total Protein Albumin Globulin Albumin/Globulin Ratio 07/02/18 07/02/18 05:25 11:18 WBC RBC Hgb Hct MCV MCH MCHC RDW Plt Count MPV Neut % (Auto) Lymph % (Auto) [place] % (Auto) Eos % (Auto) Baso % (Auto) Neut # (Auto) Lymph # (Auto) [place] # (Auto) Eos # (Auto) Baso # (Auto) Sodium 144 Potassium 3.2 L Chloride 116 H Carbon Dioxide 24 Anion Gap 7 L BUN 22 H Creatinine 1.5 Est GFR ( Amer) 54 Est GFR (Non-Af Amer) 45 POC Glucose (mg/dL) 175 H Random Glucose 92 Calcium 7.5 L Total Bilirubin 0.4 AST 23 ALT 28 Alkaline Phosphatase 1042 H Total Protein 5.9 L Albumin 2.5 L Globulin 3.4 Albumin/Globulin Ratio 0.7 L Microbiology 06/26/18 08:07 Urine,Kidney Urine Culture - Final No Growth (<1,000 CFU/ML) 06/24/18 19:01 Blood-Venous Blood Culture - Final 06/24/18 19:01 Blood-Venous Gram Stain - Final NO GROWTH AFTER 5 DAYS TEST NOT PERFORMED 06/24/18 13:53 Urine,Kidney Urine Culture - Final No Growth (<1,000 CFU/ML) 06/24/18 13:45 Blood-Venous Blood Culture - Final 06/24/18 13:45 Blood-Venous Gram Stain - Final NO GROWTH AFTER 5 DAYS TEST NOT PERFORMED Assessment & Plan (1) Malignant neoplasm metastatic from bladder Status: Acute (2) Obstructive uropathy Status: Acute Priority: High - Assessment and Plan (Free Text) Assessment: A/P- 78 year old male with stage 4 bladder cancer with bony mets and obstructive uropathy s/p TURBT and b/l nephrostomy tubes since 11/2017 s/p multiple hospitalizations and multiorganisms UTIs all treated in the past admissions s/p twice nephrostomy tube changes with most recent one in 06/08/2018 . afebrile no leukocytosis UA- + LE but negative for any nitrates urine cx- negative x2 this most recent admission prior admission urien cx- VRE ( was treated with linezolid as per other ID doc seeing pt. that admission). blood cx- neg x 2 last admission as well plan- hold off on any IV abx at this time since 2 very recent urine cx are both negative. renal insufficiency has improved as well. all labs and notes reviewed. Thank you for allowing me to take part in the care of this patient.
[2018-07-02] MEDS: oxyCODONE 10 mg Immediate Release Tab PO PRN ×2 (13:03→16:57)
--- NOTE | 2018-07-02 17:02 | CP.PCM.PN ---
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 LINO improving Hypertension control with meds as ordered. Maintain hemodynamics stable. Avoid hypotension. Patient not on ACEI/ARB due to recent LINO Monitor Input/Output, daily weights and renal function with basic metabolic panel supplement lytes as needed continue with flomax nephrostomy tube care Dose meds/antibiotics for reduced GFR. Avoid fleets enema/magnesium based laxatives. Avoid nephrotoxins/NSAIDs/ iodinated contrast (unless needed emergently) Glycemic control Further work up for as per primary team Thanks for allowing me to participate in care of your patient. Will follow patient with you. Please call if any Qs Dr Gage [place] Office: [phone] Subjective: Noted events overnight. Patients feels okay. Denies chest pain, palpitation, shortness of breath,c/o leg swelling. All other negative Physical Examination: General Appearance: Comfortable, in no acute respiratory distress, co-operative . ill and debilitated appearing Vitals reviewed and noted as below Head; Atraumatic, normocephalic ENT: no ulcers no thrush. Tongue is midline. Oropharynx: no rash or ulcers. EYES: Pupils are equal, round and reactive to light accommodation. Eye muscles and extraocular movement intact. Sclera is anicteric. Neck; supple no lymphadenopathy, no thyromegaly or bruit Lungs: Normal respiratory rate/effort. Breath sounds bilateral equal and few b jens crackles Heart: Normal rate. s1s2 normal. No rub or gallop. Extremities: 1+ edema. No varicose veins Neurological: Patient is alert, awake and oriented to person, place and time. No focal deficit. Strength bilateral appropriate and equal Skin: Warm and dry. Normal turgor. No rash. Palpitation: Normal elasticity for age Abdomen: Abdomen is soft. Bowel sounds +. There is no abdominal tenderness, no guarding/rigidity no organomegaly Psych: limited insight and normal affect/mood MSK: no joint tenderness or swelling. Digits and nails normal, no deformity : kidney or bladder not palpable. has b/l nephrostomy Labs/imaging reviewed. Past medical history, past surgical history, family history, social history, allergy reviewed and noted as below Family hx: no hx of CKD. Rest non-contributory TSAT 4% ferritin 1620 Rt kidney 8.9 and left 12.6 cm with b/l calculus Objective - Vital Signs/Intake and Output Vital Signs (last 24 hours): Temp Pulse Resp BP Pulse Ox 98.3 F 86 19 133/66 97 07/02/18 08:02 07/02/18 08:02 07/02/18 08:02 07/02/18 08:02 07/02/18 08:02 - Medications Medications: Current Medications Alprazolam (Xanax) 0.25 mg PO Q6 PRN PRN Reason: Anxiety Stop: 07/08/18 06:32 Last Admin: 07/02/18 16:58 Dose: 0.25 mg Bupropion HCl (Wellbutrin) 75 mg PO DAILY [facility] Last Admin: 07/02/18 08:29 Dose: 75 mg Enoxaparin Sodium (Lovenox) 30 mg SC DAILY [facility]; Protocol Last Admin: 07/02/18 08:30 Dose: 30 mg Lactulose (Enulose) 20 gm PO DAILY [facility] Last Admin: 07/02/18 08:30 Dose: Not Given Oxycodone HCl (Oxycodone Immediate Release Tab) 10 mg PO Q4 PRN PRN Reason: Pain, severe (8-10) Last Admin: 07/02/18 16:57 Dose: 10 mg Oxycodone HCl (Oxycontin Extended Release Tab) 20 mg PO Q12 [facility] Last Admin: 07/02/18 08:29 Dose: 20 mg Senna/Docusate Sodium (Senokot S 50 Mg-8.6 Mg) 1 tab PO HS [facility] Last Admin: 07/01/18 20:59 Dose: 1 tab Tamsulosin HCl (Flomax) 0.4 mg PO HS [facility] Last Admin: 07/01/18 20:59 Dose: 0.4 mg - Labs Labs: 07/02/18 05:25 07/02/18 05:25
[2018-07-02] MEDS: Docusate-Senna 50 mg-8.6 mg Tab PO SCH (21:39)
[2018-07-03] MEDS: oxyCODONE 10 mg Immediate Release Tab PO PRN ×4 (03:44→18:47)
[2018-07-03 07:54] LABS: ALB/GLOB RATIO 0.7 (1.0-2.1); ALBUMIN 2.5 g/dL (3.5-5.0); ALT/SGPT 29 U/L (21-72); AST/SGOT 22 U/L (17-59); BLOOD UREA NITROGEN 18 mg/dl (9-20); CALCIUM 7.4 mg/dL (8.4-10.2); GFR NON-AFRICAN AMERICAN 53
[2018-07-03] MEDS: oxyCODONE 20 mg ER Tab (oxyCONTIN) PO SCH ×2 (08:19→21:26)
[2018-07-03] MEDS: Enoxaparin 30 mg Syringe SC SCH (08:21)
[2018-07-03] MEDS ORDERED: Magnesium Sulfate 2 gm/50 ml 2 GM/50 ML BAG IVPB ONE (10:30)
[2018-07-03] MEDS ORDERED: Potassium Chloride 20 mEq ER Tab PO ONE (10:30)
--- NOTE | 2018-07-03 11:16 | CP.PCM.PN ---
Subjective - Date & Time of Evaluation Date of Evaluation: 07/03/18 Time of Evaluation: 11:15 - Subjective Subjective: Nephrology Consultation Note Assessment: Stable Acute Kidney Injury (N17.9) improving Diabetic chronic Kidney Disease (E11.22) Hypertensive Chronic Kidney Disease (I12.9) Chronic Kidney Disease (N18.3) Stage 3 with obst uropathy with bladder CA Anemia hypokalemia hypomagnesmia hx of UTI Plan No acute need for renal replacement therapy at this time. LINO improving Hypertension control with meds as ordered. Maintain hemodynamics stable. Avoid hypotension. Patient not on ACEI/ARB due to recent LINO Monitor Input/Output, daily weights and renal function with basic metabolic panel supplement lytes as needed. ordered for K and Mag today continue with flomax nephrostomy tube care Dose meds/antibiotics for improved GFR. Avoid fleets enema. Avoid nephrotoxins/NSAIDs/ iodinated contrast (unless needed emergently) Glycemic control Further work up for as per primary team Thanks for allowing me to participate in care of your patient. Dr Aline Wesley will follow patient with you from tomorrow. Please call if any Qs Dr Gage [place] Office: [phone] Subjective: Noted events overnight. Patients feels okay. Denies chest pain, palpitation, shortness of breath,c/o back pain All other negative Physical Examination: General Appearance: Comfortable, in no acute respiratory distress, co-operative . ill and debilitated appearing Vitals reviewed and noted as below Head; Atraumatic, normocephalic ENT: no ulcers no thrush. Tongue is midline. Oropharynx: no rash or ulcers. EYES: Pupils are equal, round and reactive to light accommodation. Eye muscles and extraocular movement intact. Sclera is anicteric. Neck; supple no lymphadenopathy, no thyromegaly or bruit Lungs: Normal respiratory rate/effort. Breath sounds bilateral equal and clearer Heart: Normal rate. s1s2 normal. No rub or gallop. Extremities: 1+ edema. No varicose veins Neurological: Patient is alert, awake and oriented to person, place and time. No focal deficit. Strength bilateral appropriate and equal Skin: Warm and dry. Normal turgor. No rash. Palpitation: Normal elasticity for age Abdomen: Abdomen is soft. Bowel sounds +. There is no abdominal tenderness, no guarding/rigidity no organomegaly Psych: limited insight and normal affect/mood MSK: no joint tenderness or swelling. Digits and nails normal, no deformity : kidney or bladder not palpable. has b/l nephrostomy Labs/imaging reviewed. Past medical history, past surgical history, family history, social history, allergy reviewed and noted as below Family hx: no hx of CKD. Rest non-contributory TSAT 4% ferritin 1620 Rt kidney 8.9 and left 12.6 cm with b/l calculus Objective - Vital Signs/Intake and Output Vital Signs (last 24 hours): Temp Pulse Resp BP Pulse Ox 97.8 F 85 20 130/62 97 07/03/18 08:08 07/03/18 08:08 07/03/18 08:08 07/03/18 08:08 07/03/18 08:08 - Medications Medications: Current Medications Alprazolam (Xanax) 0.25 mg PO Q6 PRN PRN Reason: Anxiety Stop: 07/08/18 06:32 Last Admin: 07/02/18 16:58 Dose: 0.25 mg Bupropion HCl (Wellbutrin) 75 mg PO DAILY [facility] Last Admin: 07/03/18 08:21 Dose: 75 mg Enoxaparin Sodium (Lovenox) 30 mg SC DAILY [facility]; Protocol Last Admin: 07/03/18 08:21 Dose: 30 mg Magnesium Sulfate (Magnesium Sulfate 2 Gm/50 Ml Water) 2 gm in 50 mls @ 50 mls/hr IVPB ONCE ONE Stop: 07/03/18 11:29 Lactulose (Enulose) 20 gm PO DAILY [facility] Last Admin: 07/03/18 08:21 Dose: Not Given Oxycodone HCl (Oxycodone Immediate Release Tab) 10 mg PO Q4 PRN PRN Reason: Pain, severe (8-10) Last Admin: 07/03/18 10:29 Dose: 10 mg Oxycodone HCl (Oxycontin Extended Release Tab) 20 mg PO Q12 [facility] Last Admin: 07/03/18 08:19 Dose: 20 mg Senna/Docusate Sodium (Senokot S 50 Mg-8.6 Mg) 1 tab PO HS [facility] Last Admin: 07/02/18 21:39 Dose: 1 tab Tamsulosin HCl (Flomax) 0.4 mg PO HS [facility] Last Admin: 07/02/18 21:39 Dose: 0.4 mg - Labs Labs: 07/02/18 05:25 07/03/18 05:25
[2018-07-03 15:06] LABS: BASO % 0.5 % (0.0-2.0); EOS # 0.2 K/uL (0.0-0.7); EOS % 3.8 % (0.0-4.0); HEMOGLOBIN 9.5 g/dL (12.0-18.0); LYMPH # 0.5 K/uL (1.0-4.3); LYMPH % 10.6 % (20.0-40.0); MEAN CELL VOLUME 91.8 fl (80.0-94.0); MEAN CORPUSCULAR HEMOGLOBIN 30.6 pg (27.0-31.0); MEAN CORPUSCULAR HGB CONC 33.4 g/dL (33.0-37.0); MEAN PLATELET VOLUME 6.3 fl (7.2-11.7); MONO # 0.5 K/uL (0.0-0.8); MONO % 9.5 % (0.0-10.0); NEUT # 3.9 K/uL (1.8-7.0); NEUT % 75.6 % (50.0-75.0); NRBC % 0.1 % (0.0-0.0); RBC 3.11 Mil/uL (4.40-5.90); RED CELL DISTRIBUTION WIDTH 18.7 % (11.5-14.5); WHITE BLOOD COUNT 5.1 K/uL (4.8-10.8)
--- NOTE | 2018-07-03 15:08 | PN ---
DATE: 07/03/2018 SUBJECTIVE: The patient was seen and examined. Interim events noted. Consult noted and appreciated. The patient remains in regular medical floor, awake, responsive, sitting in a chair. Feels okay. Denies any specific complaint. No chest pain. No shortness of breath. The patient does have chronic pain which is controlled with current pain medication. PHYSICAL EXAMINATION: GENERAL: The patient is in no acute distress. VITAL SIGNS: Stable. HEART: S1 and S2, normal and regular. LUNGS: Good bilateral air exchange. ABDOMEN: Soft and nontender. EXTREMITIES: No edema. No calf swelling. No tenderness. No ischemia. CENTRAL NERVOUS SYSTEM: Essentially unchanged. The patient has bilateral nephrostomy tube which is draining urine. DIAGNOSTIC DATA: Available diagnostic data reviewed. ASSESSMENT AND PLAN: Overall, the patient's general medical condition is stable, although long-term prognosis remains poor due to underlying cancer. Plan as ordered. Vinay Henderson MD
[2018-07-03] MEDS: Docusate-Senna 50 mg-8.6 mg Tab PO SCH (21:28)
--- NOTE | 2018-07-03 23:01 | CP.PCM.CON ---
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 He has been receiving chemotherapy with carboplatin and gemcitabine but has not received chemotherapy in the last few months. He recently completed radiotherapy for pain control. He notes to continued back pain. He continues to have a poor appetite. He denies N/V/D. Overall he continues to clinically declined but family has deferred hospice. He was recently discharged and brought back as he was evicted from his home. Past medical history: DM, urothelial cancer Past surgical history: Hernia repair Family history: Denies hematologic and oncologic problems Social history: Former tobacco, denies alcohol, and illicit drug use. Allergies: Aspirin Review of systems: All remaining review of systems including HEENT, cardiovascular, respiratory, gastrointestinal, genitourinary, musculoskeletal, dermatologic, neurologic, and psychiatric are negative unless mentioned in the HPI. Past Patient History - Infectious Disease Hx of Infectious Diseases: None - Past Medical History & Family History Past Medical History?: Yes - Past Social History Smoking Status: Former Smoker - CARDIAC Hx Peripheral Edema: Yes (BLE) - PULMONARY Hx Respiratory Disorders: No - NEUROLOGICAL Hx Neurological Disorder: No - HEENT Hx HEENT Problems: No - RENAL Hx Chronic Kidney Disease: No - ENDOCRINE/METABOLIC Hx Endocrine Disorders: Yes Hx Diabetes Mellitus Type 2: Yes - HEMATOLOGICAL/ONCOLOGICAL Hx Anemia: Yes - INTEGUMENTARY Hx Dermatological Problems: No - MUSCULOSKELETAL/RHEUMATOLOGICAL Hx Musculoskeletal Disorders: No Hx Falls: No - GASTROINTESTINAL Hx Gastrointestinal Disorders: No Other/Comment: TURBT - GENITOURINARY/GYNECOLOGICAL Hx Genitourinary Disorders: Yes 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) Hx Prostate Problems: Yes Other/Comment: B/L Nephrostomy tubes; HX OBSTRUCTIVE UROPATHY - PSYCHIATRIC Hx Depression: Yes - SURGICAL HISTORY Hx Herniorrhaphy: Yes Other/Comment: TURBT - ANESTHESIA Hx Anesthesia: Yes Hx Anesthesia Reactions: No Hx Malignant Hyperthermia: No Meds Allergies/Adverse Reactions: Allergies Allergy/AdvReac Type Severity Reaction Status Date / Time aspirin Allergy DIZZINESS Verified 06/24/18 12:51 - Medications Medications: Current Medications Alprazolam (Xanax) 0.25 mg PO Q6 PRN PRN Reason: Anxiety Stop: 07/08/18 06:32 Last Admin: 07/03/18 21:35 Dose: 0.25 mg Bupropion HCl (Wellbutrin) 75 mg PO DAILY [facility] Last Admin: 07/03/18 08:21 Dose: 75 mg Enoxaparin Sodium (Lovenox) 30 mg SC DAILY [facility]; Protocol Last Admin: 07/03/18 08:21 Dose: 30 mg Lactulose (Enulose) 20 gm PO DAILY [facility] Last Admin: 07/03/18 08:21 Dose: Not Given Oxycodone HCl (Oxycodone Immediate Release Tab) 10 mg PO Q4 PRN PRN Reason: Pain, severe (8-10) Last Admin: 07/03/18 18:47 Dose: 10 mg Oxycodone HCl (Oxycontin Extended Release Tab) 20 mg PO Q12 [facility] Last Admin: 07/03/18 21:26 Dose: 20 mg Senna/Docusate Sodium (Senokot S 50 Mg-8.6 Mg) 1 tab PO [facility] Last Admin: 07/03/18 21:28 Dose: Not Given Tamsulosin HCl (Flomax) 0.4 mg PO HS [facility] Last Admin: 07/03/18 21:27 Dose: 0.4 mg Physical Exam - Head Exam Head Exam: ATRAUMATIC - Eye Exam Eye Exam: Normal appearance - ENT Exam ENT Exam: Mucous Membranes Dry - Respiratory Exam Respiratory Exam: NORMAL BREATHING PATTERN - Cardiovascular Exam Cardiovascular Exam: +S1, +S2 - GI/Abdominal Exam GI & Abdominal Exam: Normal Bowel Sounds - Extremities Exam Extremities exam: Positive for: normal inspection - Neurological Exam Neurological exam: Oriented x3 - Psychiatric Exam Psychiatric exam: Normal Affect, Normal Mood - Skin Skin Exam: Warm Results - Vital Signs Recent Vital Signs: Last Vital Signs Temp 98.8 F 07/03/18 16:37 Pulse 82 07/03/18 16:37 Resp 19 07/03/18 16:37 BP 129/70 07/03/18 16:37 Pulse Ox 99 07/03/18 16:37 - Labs Result Diagrams: 07/03/18 14:58 07/03/18 05:25 Labs: Laboratory Results - last 24 hr 07/03/18 07/03/18 05:25 14:58 WBC 5.1 RBC 3.11 L Hgb 9.5 L Hct 28.6 L MCV 91.8 MCH 30.6 MCHC 33.4 RDW 18.7 H Plt Count 129 L MPV 6.3 L Neut % (Auto) 75.6 H Lymph % (Auto) 10.6 L Coffey % (Auto) 9.5 Eos % (Auto) 3.8 Baso % (Auto) 0.5 Neut # (Auto) 3.9 Lymph # (Auto) 0.5 L Coffey # (Auto) 0.5 Eos # (Auto) 0.2 Baso # (Auto) 0.0 Sodium 142 Potassium 3.6 Chloride 114 H Carbon Dioxide 22 Anion Gap 10 BUN 18 Creatinine 1.3 Est GFR ( Amer) > 60 Est GFR (Non-Af Amer) 53 Random Glucose 89 Calcium 7.4 L Phosphorus 3.0 Magnesium 1.2 L Total Bilirubin 0.4 AST 22 ALT 29 Alkaline Phosphatase 1067 H Total Protein 5.8 L Albumin 2.5 L Globulin 3.3 Albumin/Globulin Ratio 0.7 L Assessment & Plan (1) Anemia Assessment and Plan: chronic disease transfusion support PRN Status: Acute (2) Bladder cancer Assessment and Plan: stage IV has not received chemotherapy in 3-4 months s/p recent palliative radiation to bone metastasis recommend palliative care evaluation past hospice discussion declined Thank you for this interesting consult. Status: Chronic Priority: High
--- NOTE | 2018-07-03 23:04 | CP.PCM.PN ---
Subjective - Date & Time of Evaluation Date of Evaluation: 07/02/18 Time of Evaluation: 18:00 - Subjective Subjective: Feels weak. Objective - Vital Signs/Intake and Output Vital Signs (last 24 hours): Temp Pulse Resp BP Pulse Ox 98.8 F 82 19 129/70 99 07/03/18 16:37 07/03/18 16:37 07/03/18 16:37 07/03/18 16:37 07/03/18 16:37 Intake and Output: 07/03/18 07/04/18 18:59 06:59 Output Total 725 Balance -725 - Medications Medications: Current Medications Alprazolam (Xanax) 0.25 mg PO Q6 PRN PRN Reason: Anxiety Stop: 07/08/18 06:32 Last Admin: 07/03/18 21:35 Dose: 0.25 mg Bupropion HCl (Wellbutrin) 75 mg PO DAILY [facility] Last Admin: 07/03/18 08:21 Dose: 75 mg Enoxaparin Sodium (Lovenox) 30 mg SC DAILY [facility]; Protocol Last Admin: 07/03/18 08:21 Dose: 30 mg Lactulose (Enulose) 20 gm PO DAILY [facility] Last Admin: 07/03/18 08:21 Dose: Not Given Oxycodone HCl (Oxycodone Immediate Release Tab) 10 mg PO Q4 PRN PRN Reason: Pain, severe (8-10) Last Admin: 07/03/18 18:47 Dose: 10 mg Oxycodone HCl (Oxycontin Extended Release Tab) 20 mg PO Q12 [facility] Last Admin: 07/03/18 21:26 Dose: 20 mg Senna/Docusate Sodium (Senokot S 50 Mg-8.6 Mg) 1 tab PO [facility] Last Admin: 07/03/18 21:28 Dose: Not Given Tamsulosin HCl (Flomax) 0.4 mg PO [facility] Last Admin: 07/03/18 21:27 Dose: 0.4 mg - Labs Labs: 07/03/18 14:58 07/03/18 05:25 - Head Exam Head Exam: ATRAUMATIC - Eye Exam Eye Exam: Normal appearance - ENT Exam ENT Exam: Mucous Membranes Dry - Respiratory Exam Respiratory Exam: NORMAL BREATHING PATTERN - Cardiovascular Exam Cardiovascular Exam: +S1, +S2 - GI/Abdominal Exam GI & Abdominal Exam: Normal Bowel Sounds Assessment and Plan (1) Anemia Assessment & Plan: anemia of chronic disease from malignancy Status: Acute (2) Bladder cancer Assessment & Plan: stage IV has not received chemotherapy in 3-4 months s/p recent palliative radiation to bone metastasis recommend palliative care evaluation past hospice discussion declined Status: Chronic
[2018-07-04] MEDS: oxyCODONE 10 mg Immediate Release Tab PO PRN ×4 (02:44→18:18)
[2018-07-04 06:06] LABS: HEMOGLOBIN 9.2 g/dL (12.0-18.0); MEAN CELL VOLUME 91.1 fl (80.0-94.0); MEAN CORPUSCULAR HEMOGLOBIN 30.5 pg (27.0-31.0); MEAN CORPUSCULAR HGB CONC 33.5 g/dL (33.0-37.0); RBC 3.02 Mil/uL (4.40-5.90); RED CELL DISTRIBUTION WIDTH 18.6 % (11.5-14.5); WHITE BLOOD COUNT 5.6 K/uL (4.8-10.8)
[2018-07-04 06:39] LABS: ALB/GLOB RATIO 0.7 (1.0-2.1); ALBUMIN 2.4 g/dL (3.5-5.0); CALCIUM 7.7 mg/dL (8.4-10.2)
[2018-07-04] MEDS: Enoxaparin 30 mg Syringe SC SCH (08:37)
[2018-07-04] MEDS: oxyCODONE 20 mg ER Tab (oxyCONTIN) PO SCH ×2 (08:48→22:18)
--- NOTE | 2018-07-04 08:49 | PN ---
DATE: 07/02/2018 SUBJECTIVE: The patient seen and examined. Interim events noted. Consults noted and appreciated. Nephrology followup and intervention noted and appreciated. The patient remains in regular medical floor. Feels okay. Complains of chronic pain, controlled with medication. No new complaint of chest pain or shortness of breath. PHYSICAL EXAMINATION: GENERAL: The patient is in no acute distress. VITAL SIGNS: Stable. HEART: S1 and S2, normal and regular. LUNGS: Good bilateral air exchange. ABDOMEN: The patient has bilateral nephrostomy tube draining urine without any complication. Abdomen otherwise is soft and nontender. No organomegaly noted. Bowel sounds are plus and normal. EXTREMITIES: No edema. No calf swelling. No tenderness. No acute ischemia. CENTRAL NERVOUS SYSTEM: Exam is essentially unchanged. DIAGNOSTIC DATA: Available diagnostic data reviewed. BUN is 32, creatinine is 1.5. ASSESSMENT AND PLAN: Overall, the patient is medically stable. Case discussed with the case management and social service department. Arrangement is being made for the patient's safe discharge. Plan as ordered. Vinay Henderson MD
--- NOTE | 2018-07-04 10:36 | CP.PCM.PN ---
Subjective - Date & Time of Evaluation Date of Evaluation: 07/04/18 Time of Evaluation: 10:38 - Subjective Subjective: patient is awake No significant changes Vital signs stable Chronic debility Objective - Vital Signs/Intake and Output Vital Signs (last 24 hours): Temp Pulse Resp BP Pulse Ox 98.8 F 84 19 138/86 97 07/04/18 08:24 07/04/18 08:24 07/04/18 08:24 07/04/18 08:24 07/04/18 08:24 Intake and Output: 07/04/18 07/04/18 06:59 18:59 Output Total 430 Balance -430 - Medications Medications: Current Medications Alprazolam (Xanax) 0.25 mg PO Q6 PRN PRN Reason: Anxiety Stop: 07/08/18 06:32 Last Admin: 07/03/18 21:35 Dose: 0.25 mg Bupropion HCl (Wellbutrin) 75 mg PO DAILY [facility] Last Admin: 07/04/18 08:41 Dose: 75 mg Lactulose (Enulose) 20 gm PO DAILY [facility] Last Admin: 07/04/18 08:41 Dose: Not Given Oxycodone HCl (Oxycodone Immediate Release Tab) 10 mg PO Q4 PRN PRN Reason: Pain, severe (8-10) Last Admin: 07/04/18 06:47 Dose: 10 mg Oxycodone HCl (Oxycontin Extended Release Tab) 20 mg PO Q12 [facility] Last Admin: 07/04/18 08:48 Dose: 20 mg Senna/Docusate Sodium (Senokot S 50 Mg-8.6 Mg) 1 tab PO [facility] Last Admin: 07/03/18 21:28 Dose: Not Given Tamsulosin HCl (Flomax) 0.4 mg PO [facility] Last Admin: 07/03/18 21:27 Dose: 0.4 mg - Labs Labs: 07/04/18 05:55 07/04/18 05:55 - Constitutional Appears: No Acute Distress - Eye Exam Eye Exam: Conjunctival injection - ENT Exam ENT Exam: Mucous Membranes Moist - Respiratory Exam Respiratory Exam: NORMAL BREATHING PATTERN. absent: Chest Wall Tenderness - Cardiovascular Exam Cardiovascular Exam: absent: Gallop, JVD, Rubs - GI/Abdominal Exam GI & Abdominal Exam: Soft, Normal Bowel Sounds - Extremities Exam Extremities Exam: absent: Calf Tenderness - Back Exam Back Exam: absent: CVA tenderness (L), CVA tenderness (R) - Neurological Exam Neurological Exam: Alert - Psychiatric Exam Psychiatric exam: Normal Affect - Skin Skin Exam: absent: Cyanosis Assessment and Plan (1) Acute kidney failure Assessment & Plan: Assessment and Plan: acute kidney injury most likely related to obstructive uropathy related to malfu nction of nephrostomy. patient has baseline serum creatinine around 2.0 consistent with stage 3 CK D debility Metastatic bladder cancer with status post chemotherapy Anemia DM the plan Kidney function continued to improve serum creatinine went down 1.7 Nephrostomy care Multivitamin supplement Monitor magnesium intermittently and electrolyte and kidney function Status: Acute (2) Anemia Status: Acute (3) Diabetes 1.5, managed as type 2 Status: Acute
--- NOTE | 2018-07-04 11:08 | CP.PCM.CON ---
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 Patient discharged home yesterday but readmitted due to being homeless. Pt is still having chronic lower bck pain and found to have Lalo. GI was consulted for one reported bloody BM yesterday. Pt denies any rectal bleeding now or in the past. No reported melena. Pt denies any constipation. Pt states he had a colonoscopy years ago that was normal but unable to recall when and where. Denies EGD but does have GERD at times. No family hx of colon cancer. ROS: A 12pt ROS was negative except as above PMH: As stated in HPI PSH: Hernia repair, B/L nephrostomy tubes FH: Denies colon cancer SH: Former tobacco, denies alcohol, and illicit drug use Past Patient History - Infectious Disease Hx of Infectious Diseases: None - Past Medical History & Family History Past Medical History?: Yes - Past Social History Smoking Status: Former Smoker - CARDIAC Hx Peripheral Edema: Yes (BLE) - PULMONARY Hx Respiratory Disorders: No - NEUROLOGICAL Hx Neurological Disorder: No - HEENT Hx HEENT Problems: No - RENAL Hx Chronic Kidney Disease: No - ENDOCRINE/METABOLIC Hx Endocrine Disorders: Yes Hx Diabetes Mellitus Type 2: Yes - HEMATOLOGICAL/ONCOLOGICAL Hx Anemia: Yes - INTEGUMENTARY Hx Dermatological Problems: No - MUSCULOSKELETAL/RHEUMATOLOGICAL Hx Musculoskeletal Disorders: No Hx Falls: No - GASTROINTESTINAL Hx Gastrointestinal Disorders: No Other/Comment: TURBT - GENITOURINARY/GYNECOLOGICAL Hx Genitourinary Disorders: Yes 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) Hx Prostate Problems: Yes Other/Comment: B/L Nephrostomy tubes; HX OBSTRUCTIVE UROPATHY - PSYCHIATRIC Hx Depression: Yes - SURGICAL HISTORY Hx Herniorrhaphy: Yes Other/Comment: TURBT - ANESTHESIA Hx Anesthesia: Yes Hx Anesthesia Reactions: No Hx Malignant Hyperthermia: No Meds Allergies/Adverse Reactions: Allergies Allergy/AdvReac Type Severity Reaction Status Date / Time aspirin Allergy DIZZINESS Verified 06/24/18 12:51 - Medications Medications: Current Medications Alprazolam (Xanax) 0.25 mg PO Q6 PRN PRN Reason: Anxiety Stop: 07/08/18 06:32 Last Admin: 07/03/18 21:35 Dose: 0.25 mg Bupropion HCl (Wellbutrin) 75 mg PO DAILY [facility] Last Admin: 07/04/18 08:41 Dose: 75 mg Lactulose (Enulose) 20 gm PO DAILY [facility] Last Admin: 07/04/18 08:41 Dose: Not Given Oxycodone HCl (Oxycodone Immediate Release Tab) 10 mg PO Q4 PRN PRN Reason: Pain, severe (8-10) Last Admin: 07/04/18 06:47 Dose: 10 mg Oxycodone HCl (Oxycontin Extended Release Tab) 20 mg PO Q12 [facility] Last Admin: 07/04/18 08:48 Dose: 20 mg Senna/Docusate Sodium (Senokot S 50 Mg-8.6 Mg) 1 tab PO [facility] Last Admin: 07/03/18 21:28 Dose: Not Given Tamsulosin HCl (Flomax) 0.4 mg PO [facility] Last Admin: 07/03/18 21:27 Dose: 0.4 mg Physical Exam - Constitutional Appears: Non-toxic, No Acute Distress, Cachectic, Chronically Ill - Head Exam Head Exam: ATRAUMATIC, NORMAL INSPECTION, NORMOCEPHALIC - Eye Exam Eye Exam: EOMI, Normal appearance, PERRL Pupil Exam: PERRL - ENT Exam ENT Exam: Mucous Membranes Moist - Neck Exam Neck exam: Positive for: Full Rom, Normal Inspection - Respiratory Exam Respiratory Exam: Decreased Breath Sounds, NORMAL BREATHING PATTERN - Cardiovascular Exam Cardiovascular Exam: RRR, +S1, +S2 - GI/Abdominal Exam GI & Abdominal Exam: Normal Bowel Sounds, Soft. absent: Distended, Firm, Organomegaly, Tenderness - Rectal Exam Rectal Exam: Deferred - Extremities Exam Extremities exam: Positive for: full ROM, normal inspection - Back Exam Additional comments: BL nephrostomy tubes - Neurological Exam Neurological exam: Alert, Oriented x3 - Psychiatric Exam Psychiatric exam: Normal Affect, Normal Mood - Skin Skin Exam: Dry, Intact, Normal Color, Warm Results - Vital Signs Recent Vital Signs: Last Vital Signs Temp 98.8 F 07/04/18 08:24 Pulse 84 07/04/18 08:24 Resp 19 07/04/18 08:24 BP 138/86 07/04/18 08:24 Pulse Ox 97 07/04/18 08:24 - Labs Result Diagrams: 07/04/18 05:55 07/04/18 05:55 Labs: Laboratory Results - last 24 hr 07/02/18 07/02/18 07/03/18 20:34 20:34 05:48 WBC RBC Hgb Hct MCV MCH MCHC RDW Plt Count MPV Neut % (Auto) Lymph % (Auto) Gibson % (Auto) Eos % (Auto) Baso % (Auto) Neut # (Auto) Lymph # (Auto) Gibson # (Auto) Eos # (Auto) Baso # (Auto) Sodium Potassium Chloride Carbon Dioxide Anion Gap BUN Creatinine Est GFR ( Amer) Est GFR (Non-Af Amer) POC Glucose (mg/dL) 91 91 74 Random Glucose Calcium Total Bilirubin AST ALT Alkaline Phosphatase Total Protein Albumin Globulin Albumin/Globulin Ratio 07/03/18 07/03/18 07/03/18 06:55 11:05 14:58 WBC 5.1 RBC 3.11 L Hgb 9.5 L Hct 28.6 L MCV 91.8 MCH 30.6 MCHC 33.4 RDW 18.7 H Plt Count 129 L MPV 6.3 L Neut % (Auto) 75.6 H Lymph % (Auto) 10.6 L Gibson % (Auto) 9.5 Eos % (Auto) 3.8 Baso % (Auto) 0.5 Neut # (Auto) 3.9 Lymph # (Auto) 0.5 L Gibson # (Auto) 0.5 Eos # (Auto) 0.2 Baso # (Auto) 0.0 Sodium Potassium Chloride Carbon Dioxide Anion Gap BUN Creatinine Est GFR ( Amer) Est GFR (Non-Af Amer) POC Glucose (mg/dL) 127 H 126 H Random Glucose Calcium Total Bilirubin AST ALT Alkaline Phosphatase Total Protein Albumin Globulin Albumin/Globulin Ratio 07/03/18 07/03/18 07/04/18 16:05 21:42 05:55 WBC 5.6 RBC 3.02 L Hgb 9.2 L Hct 27.5 L MCV 91.1 MCH 30.5 MCHC 33.5 RDW 18.6 H Plt Count 118 L MPV Neut % (Auto) Lymph % (Auto) Gibson % (Auto) Eos % (Auto) Baso % (Auto) Neut # (Auto) Lymph # (Auto) Gibson # (Auto) Eos # (Auto) Baso # (Auto) Sodium Potassium Chloride Carbon Dioxide Anion Gap BUN Creatinine Est GFR ( Amer) Est GFR (Non-Af Amer) POC Glucose (mg/dL) 133 H 175 H Random Glucose Calcium Total Bilirubin AST ALT Alkaline Phosphatase Total Protein Albumin Globulin Albumin/Globulin Ratio 07/04/18 05:55 WBC RBC Hgb Hct MCV MCH MCHC RDW Plt Count MPV Neut % (Auto) Lymph % (Auto) Gibson % (Auto) Eos % (Auto) Baso % (Auto) Neut # (Auto) Lymph # (Auto) Gibson # (Auto) Eos # (Auto) Baso # (Auto) Sodium 141 Potassium 4.4 Chloride 113 H Carbon Dioxide 24 Anion Gap 8 L BUN 22 H Creatinine 1.7 H Est GFR ( Amer) 47 Est GFR (Non-Af Amer) 39 POC Glucose (mg/dL) Random Glucose 97 Calcium 7.7 L Total Bilirubin 0.4 AST 30 ALT 24 Alkaline Phosphatase 1060 H Total Protein 5.7 L Albumin 2.4 L Globulin 3.4 Albumin/Globulin Ratio 0.7 L Assessment & Plan - Assessment and Plan (Free Text) Assessment: 1. Reported Rectal bleeding-resolved 2. Anemia of chronic disease 3. GERD 4. Stage IV bladder cancer with mets 5. Constipation Plan: -Continue supportive care with pain control and antiemetics -Hgb stable at baseline, hemodynamically stable -No active GI bleeding, rectal exam negative -Monitor H/H -No plan for endoscopic evaluation at this time -Pt may benefit from outpt colonoscopy if continues rectal bleeding -Pt has intermittent constipation, CT imaging from 05/2018 reviewed with constipation -Pt needs bowel regimen while on pain medication -Will start Miralax daily -Will start H2 sofiya for GERD -Okay to resume DVT ppx -Diet as tolerated -Please call wit any questions or concerns <Sandor Mchugh - Last Filed: 07/14/18 09:16> Meds - Medications Medications: Current Medications Acetaminophen (Tylenol 325mg Tab) 650 mg PO Q6 PRN PRN Reason: Fever >100.4 F Last Admin: 07/12/18 12:46 Dose: 650 mg Alprazolam (Xanax) 0.25 mg PO Q6 PRN PRN Reason: Anxiety Stop: 07/15/18 08:27 Last Admin: 07/10/18 22:13 Dose: 0.25 mg Bupropion HCl (Wellbutrin) 75 mg PO DAILY [facility] Last Admin: 07/14/18 09:05 Dose: 75 mg Dextrose (Dextrose 50% Inj) 0 ml IV STAT PRN; Protocol PRN Reason: Hypoglycemia Protocol Dextrose (Glutose 15) 0 gm PO ONCE PRN; Protocol PRN Reason: Hypoglycemia Protocol Potassium Chloride/Dextrose (Potassium Chl 20 Meq In D5w) 1,000 mls @ 80 mls/hr IV .[id number] [facility] Last Admin: 07/14/18 02:45 Dose: Not Given Lactulose (Enulose) 20 gm PO DAILY PRN PRN Reason: Constipation Last Admin: 07/09/18 09:14 Dose: 20 gm Lorazepam (Ativan) 0.5 mg IVP Q8 PRN PRN Reason: Agitation Last Admin: 07/10/18 04:56 Dose: 0.5 mg Ondansetron HCl (Zofran Inj) 4 mg IVP Q6 PRN PRN Reason: Nausea/Vomiting Last Admin: 07/07/18 09:47 Dose: 4 mg Oxycodone HCl (Oxycodone Immediate Release Tab) 10 mg PO Q4 PRN PRN Reason: Pain, severe (8-10) Last Admin: 07/13/18 17:00 Dose: 10 mg Oxycodone HCl (Oxycontin Extended Release Tab) 20 mg PO Q12 [facility] Last Admin: 07/14/18 09:03 Dose: 20 mg Pantoprazole Sodium (Protonix Inj) 40 mg IVP DAILY [facility] Last Admin: 07/14/18 09:05 Dose: 40 mg Potassium Chloride (Potassium Chloride Oral Soln) 60 meq PO DAILY [facility] Last Admin: 07/14/18 09:04 Dose: 60 meq Senna/Docusate Sodium (Senokot S 50 Mg-8.6 Mg) 1 tab PO [facility] Last Admin: 07/13/18 22:05 Dose: Not Given Tamsulosin HCl (Flomax) 0.4 mg PO [facility] Last Admin: 07/13/18 21:17 Dose: 0.4 mg Results - Vital Signs Recent Vital Signs: Last Vital Signs Temp 98.5 F 07/14/18 08:06 Pulse 85 07/14/18 08:06 Resp 19 07/14/18 08:06 BP 115/52 L 07/14/18 08:06 Pulse Ox 96 07/14/18 08:06 - Labs Result Diagrams: 07/13/18 06:20 07/13/18 06:20 Labs: Laboratory Results - last 24 hr 07/13/18 07/13/18 07/13/18 10:38 16:14 21:28 POC Glucose (mg/dL) 135 H 100 124 H 07/14/18 06:13 POC Glucose (mg/dL) 141 H Assessment & Plan - Assessment and Plan (Free Text) Plan: Patient seen and examined Discussed with fellow and agree with above Sandor Mchugh MD, PhD
[2018-07-04] MEDS ORDERED: POLYETHYLENE GLYCOL 3350 17 GM/Dose PACKET PO SCH (11:30)
--- NOTE | 2018-07-04 12:49 | PN ---
DATE: 07/04/2018 SUBJECTIVE: The patient seen and examined. Interim events noted. The patient remains in regular medica floor. Still complains of generalized pain current medication, but sometime not enough. PHYSICAL EXAMINATION: GENERAL: The patient is chronically sick-looking elderly male in no acute respiratory distress. VITAL SIGNS: Stable. HEART: S1 and S2, normal and regular. LUNGS: Good bilateral air exchange. ABDOMEN: Soft, nontender. The patient has bilateral nephrostomy tube, which is draining clear urine. EXTREMITIES: No calf swelling. No tenderness. No acute ischemia. CENTRAL NERVOUS SYSTEM: Exam is essentially unchanged. DIAGNOSTIC DATA: Available diagnostic data reviewed. ASSESSMENT AND PLAN: Overall, the patient's general medical condition is hemodynamically stable and the long-term prognosis remains poor. Plan as ordered. Vinay Henderson MD
[2018-07-04] MEDS: Docusate-Senna 50 mg-8.6 mg Tab PO SCH (22:21)
--- NOTE | 2018-07-04 22:53 | CP.PCM.PN ---
Subjective - Date & Time of Evaluation Date of Evaluation: 07/04/18 Time of Evaluation: 20:00 - Subjective Subjective: Feels weak Objective - Vital Signs/Intake and Output Vital Signs (last 24 hours): Temp Pulse Resp BP Pulse Ox 99.3 F 89 20 152/65 H 97 07/04/18 16:18 07/04/18 16:18 07/04/18 16:18 07/04/18 16:18 07/04/18 16:18 - Medications Medications: Current Medications Alprazolam (Xanax) 0.25 mg PO Q6 PRN PRN Reason: Anxiety Stop: 07/08/18 06:32 Last Admin: 07/04/18 18:18 Dose: 0.25 mg Bupropion HCl (Wellbutrin) 75 mg PO DAILY [facility] Last Admin: 07/04/18 08:41 Dose: 75 mg Famotidine (Pepcid) 20 mg PO BID [facility] Last Admin: 07/04/18 16:28 Dose: 20 mg Lactulose (Enulose) 20 gm PO DAILY PRN PRN Reason: Constipation Oxycodone HCl (Oxycodone Immediate Release Tab) 10 mg PO Q4 PRN PRN Reason: Pain, severe (8-10) Last Admin: 07/04/18 18:18 Dose: 10 mg Oxycodone HCl (Oxycontin Extended Release Tab) 20 mg PO Q12 [facility] Last Admin: 07/04/18 22:18 Dose: 20 mg Senna/Docusate Sodium (Senokot S 50 Mg-8.6 Mg) 1 tab PO [facility] Last Admin: 07/04/18 22:21 Dose: Not Given Tamsulosin HCl (Flomax) 0.4 mg PO [facility] Last Admin: 07/04/18 22:20 Dose: 0.4 mg - Labs Labs: 07/04/18 05:55 07/04/18 05:55 - Constitutional Appears: Cachectic - Head Exam Head Exam: ATRAUMATIC - Eye Exam Eye Exam: Normal appearance - ENT Exam ENT Exam: Mucous Membranes Dry - Respiratory Exam Respiratory Exam: NORMAL BREATHING PATTERN - Cardiovascular Exam Cardiovascular Exam: +S1, +S2 - GI/Abdominal Exam GI & Abdominal Exam: Normal Bowel Sounds Assessment and Plan (1) Anemia Assessment & Plan: anemia of chronic disease from malignancy Status: Acute (2) Bladder cancer Assessment & Plan: stage IV has not received chemotherapy in 3-4 months s/p recent palliative radiation to bone metastasis recommend palliative care evaluation past hospice discussion declined Status: Chronic
[2018-07-05] MEDS: oxyCODONE 10 mg Immediate Release Tab PO PRN ×3 (06:15→23:37)
[2018-07-05 06:34] LABS: HEMOGLOBIN 9.2 g/dL (12.0-18.0); MEAN CELL VOLUME 91.4 fl (80.0-94.0); MEAN CORPUSCULAR HEMOGLOBIN 31.1 pg (27.0-31.0); RBC 2.98 Mil/uL (4.40-5.90); RED CELL DISTRIBUTION WIDTH 18.8 % (11.5-14.5); WHITE BLOOD COUNT 5.4 K/uL (4.8-10.8)
[2018-07-05] MEDS: oxyCODONE 20 mg ER Tab (oxyCONTIN) PO SCH ×2 (08:49→21:09)
--- NOTE | 2018-07-05 10:30 | CP.PCM.PN ---
<Luis,Melinda - Last Filed: 07/05/18 10:31> Subjective - Date & Time of Evaluation Date of Evaluation: 07/05/18 Time of Evaluation: 08:00 - Subjective Subjective: GI Fellow PGY 5 Progress Note Pt seen and evaluated at bedside, doing well with no complaints. tolerating diet. +BM, nonbloody. ROS: A 12pt ROS was negative except as above. Objective - Vital Signs/Intake and Output Vital Signs (last 24 hours): Temp Pulse Resp BP Pulse Ox 98.5 F 73 22 150/75 100 07/05/18 08:44 07/05/18 08:44 07/05/18 08:44 07/05/18 08:44 07/05/18 08:44 Intake and Output: 07/05/18 07/05/18 06:59 18:59 Output Total 410 Balance -410 - Medications Medications: Current Medications Alprazolam (Xanax) 0.25 mg PO Q6 PRN PRN Reason: Anxiety Stop: 07/08/18 06:32 Last Admin: 07/05/18 08:53 Dose: 0.25 mg Bupropion HCl (Wellbutrin) 75 mg PO DAILY [facility] Last Admin: 07/05/18 08:50 Dose: 75 mg Famotidine (Pepcid) 20 mg PO BID [facility] Last Admin: 07/05/18 08:50 Dose: 20 mg Lactulose (Enulose) 20 gm PO DAILY PRN PRN Reason: Constipation Oxycodone HCl (Oxycodone Immediate Release Tab) 10 mg PO Q4 PRN PRN Reason: Pain, severe (8-10) Last Admin: 07/05/18 06:15 Dose: 10 mg Oxycodone HCl (Oxycontin Extended Release Tab) 20 mg PO Q12 [facility] Last Admin: 07/05/18 08:49 Dose: 20 mg Senna/Docusate Sodium (Senokot S 50 Mg-8.6 Mg) 1 tab PO HS [facility] Last Admin: 07/04/18 22:21 Dose: Not Given Tamsulosin HCl (Flomax) 0.4 mg PO HS [facility] Last Admin: 07/04/18 22:20 Dose: 0.4 mg - Labs Labs: 07/05/18 06:15 07/04/18 05:55 - Constitutional Appears: Non-toxic, No Acute Distress - Head Exam Head Exam: ATRAUMATIC, NORMAL INSPECTION, NORMOCEPHALIC - Eye Exam Eye Exam: EOMI, Normal appearance Pupil Exam: PERRL - ENT Exam ENT Exam: Mucous Membranes Moist - Neck Exam Neck Exam: Full ROM - Respiratory Exam Respiratory Exam: Clear to Ausculation Bilateral, NORMAL BREATHING PATTERN - Cardiovascular Exam Cardiovascular Exam: REGULAR RHYTHM, +S1, +S2 - GI/Abdominal Exam GI & Abdominal Exam: Soft, Normal Bowel Sounds. absent: Distended, Firm, Guarding, Tenderness - Extremities Exam Extremities Exam: Full ROM - Neurological Exam Neurological Exam: Alert, Awake, Oriented x3 - Psychiatric Exam Psychiatric exam: Normal Affect, Normal Mood - Skin Skin Exam: Dry, Intact, Warm Assessment and Plan - Assessment and Plan (Free Text) Assessment: 1. Reported Rectal bleeding-resolved 2. Anemia of chronic disease 3. GERD 4. Stage IV bladder cancer with mets 5. Constipation Plan: -Continue supportive care with pain control and antiemetics -Hgb stable at baseline, hemodynamically stable -No active GI bleeding, rectal exam negative -Monitor H/H -No plan for endoscopic evaluation at this time -Pt may benefit from outpt colonoscopy if continues rectal bleeding -Pt has intermittent constipation, CT imaging from 05/2018 reviewed with constipation -Pt needs bowel regimen while on pain medication -Continue lactulose daily -Continue H2 sofiya for GERD -Diet as tolerated -Please call wit any questions or concerns <Sandor Mchugh - Last Filed: 07/14/18 09:15> Objective - Vital Signs/Intake and Output Vital Signs (last 24 hours): Temp Pulse Resp BP Pulse Ox 98.5 F 85 19 115/52 L 96 07/14/18 08:06 07/14/18 08:06 07/14/18 08:06 07/14/18 08:06 07/14/18 08:06 - Medications Medications: Current Medications Acetaminophen (Tylenol 325mg Tab) 650 mg PO Q6 PRN PRN Reason: Fever >100.4 F Last Admin: 07/12/18 12:46 Dose: 650 mg Alprazolam (Xanax) 0.25 mg PO Q6 PRN PRN Reason: Anxiety Stop: 07/15/18 08:27 Last Admin: 07/10/18 22:13 Dose: 0.25 mg Bupropion HCl (Wellbutrin) 75 mg PO DAILY [facility] Last Admin: 07/14/18 09:05 Dose: 75 mg Dextrose (Dextrose 50% Inj) 0 ml IV STAT PRN; Protocol PRN Reason: Hypoglycemia Protocol Dextrose (Glutose 15) 0 gm PO ONCE PRN; Protocol PRN Reason: Hypoglycemia Protocol Potassium Chloride/Dextrose (Potassium Chl 20 Meq In D5w) 1,000 mls @ 80 mls/hr IV .[id number] [facility] Last Admin: 07/14/18 02:45 Dose: Not Given Lactulose (Enulose) 20 gm PO DAILY PRN PRN Reason: Constipation Last Admin: 07/09/18 09:14 Dose: 20 gm Lorazepam (Ativan) 0.5 mg IVP Q8 PRN PRN Reason: Agitation Last Admin: 07/10/18 04:56 Dose: 0.5 mg Ondansetron HCl (Zofran Inj) 4 mg IVP Q6 PRN PRN Reason: Nausea/Vomiting Last Admin: 07/07/18 09:47 Dose: 4 mg Oxycodone HCl (Oxycodone Immediate Release Tab) 10 mg PO Q4 PRN PRN Reason: Pain, severe (8-10) Last Admin: 07/13/18 17:00 Dose: 10 mg Oxycodone HCl (Oxycontin Extended Release Tab) 20 mg PO Q12 [facility] Last Admin: 07/14/18 09:03 Dose: 20 mg Pantoprazole Sodium (Protonix Inj) 40 mg IVP DAILY [facility] Last Admin: 07/14/18 09:05 Dose: 40 mg Potassium Chloride (Potassium Chloride Oral Soln) 60 meq PO DAILY [facility] Last Admin: 07/14/18 09:04 Dose: 60 meq Senna/Docusate Sodium (Senokot S 50 Mg-8.6 Mg) 1 tab PO HS [facility] Last Admin: 07/13/18 22:05 Dose: Not Given Tamsulosin HCl (Flomax) 0.4 mg PO [facility] Last Admin: 07/13/18 21:17 Dose: 0.4 mg - Labs Labs: 07/13/18 06:20 07/13/18 06:20 Assessment and Plan - Assessment and Plan (Free Text) Plan: Patient seen and examined Discussed with fellow and agree with above Sandor Mchugh MD, PhD
--- NOTE | 2018-07-05 10:46 | CP.PCM.PN ---
Subjective - Date & Time of Evaluation Date of Evaluation: 07/05/18 Time of Evaluation: 10:47 - Subjective Subjective: patient awake but he appeared to be chronically ill and debilitated Vital sign noted to be stable Objective - Vital Signs/Intake and Output Vital Signs (last 24 hours): Temp Pulse Resp BP Pulse Ox 98.5 F 73 22 150/75 100 07/05/18 08:44 07/05/18 08:44 07/05/18 08:44 07/05/18 08:44 07/05/18 08:44 Intake and Output: 07/05/18 07/05/18 06:59 18:59 Output Total 410 Balance -410 - Medications Medications: Current Medications Alprazolam (Xanax) 0.25 mg PO Q6 PRN PRN Reason: Anxiety Stop: 07/08/18 06:32 Last Admin: 07/05/18 08:53 Dose: 0.25 mg Bupropion HCl (Wellbutrin) 75 mg PO DAILY [facility] Last Admin: 07/05/18 08:50 Dose: 75 mg Famotidine (Pepcid) 20 mg PO BID [facility] Last Admin: 07/05/18 08:50 Dose: 20 mg Lactulose (Enulose) 20 gm PO DAILY PRN PRN Reason: Constipation Oxycodone HCl (Oxycodone Immediate Release Tab) 10 mg PO Q4 PRN PRN Reason: Pain, severe (8-10) Last Admin: 07/05/18 06:15 Dose: 10 mg Oxycodone HCl (Oxycontin Extended Release Tab) 20 mg PO Q12 [facility] Last Admin: 07/05/18 08:49 Dose: 20 mg Senna/Docusate Sodium (Senokot S 50 Mg-8.6 Mg) 1 tab PO [facility] Last Admin: 07/04/18 22:21 Dose: Not Given Tamsulosin HCl (Flomax) 0.4 mg PO [facility] Last Admin: 07/04/18 22:20 Dose: 0.4 mg - Labs Labs: 07/05/18 06:15 07/04/18 05:55 - Constitutional Appears: No Acute Distress - ENT Exam ENT Exam: Mucous Membranes Moist - Respiratory Exam Respiratory Exam: NORMAL BREATHING PATTERN. absent: Rhonchi - Cardiovascular Exam Cardiovascular Exam: absent: Gallop, JVD, Rubs - Extremities Exam Extremities Exam: absent: Calf Tenderness - Back Exam Back Exam: absent: CVA tenderness (L), CVA tenderness (R) - Neurological Exam Neurological Exam: Altered - Psychiatric Exam Psychiatric exam: Flat Affect - Skin Skin Exam: absent: Cyanosis Assessment and Plan (1) Acute kidney failure Assessment & Plan: acute kidney injury most likely related to obstructive uropathy related to malfunction of nephrostomy. patient has baseline serum creatinine around 2.0 consistent with stage 3 CK D debility Metastatic bladder cancer with status post chemotherapy Anemia DM the plan Kidney function continued to improve serum creatinine went down 1.7 Nephrostomy care Multivitamin supplement stage IV has not received chemotherapy in 3-4 months s/p recent palliative radiation to bone metastasis r Status: Acute (2) Anemia Status: Acute (3) Diabetes 1.5, managed as type 2 Status: Acute
[2018-07-05] MEDS: Docusate-Senna 50 mg-8.6 mg Tab PO SCH (21:09)
--- NOTE | 2018-07-06 00:44 | CP.PCM.PN ---
Subjective - Date & Time of Evaluation Date of Evaluation: 07/05/18 Time of Evaluation: 12:00 - Subjective Subjective: Seen eating lunch, feels weak. Objective - Vital Signs/Intake and Output Vital Signs (last 24 hours): Temp Pulse Resp BP Pulse Ox 99.8 F H 89 20 117/64 98 07/05/18 16:29 07/05/18 16:29 07/05/18 16:29 07/05/18 16:29 07/05/18 16:29 - Medications Medications: Current Medications Alprazolam (Xanax) 0.25 mg PO Q6 PRN PRN Reason: Anxiety Stop: 07/08/18 06:32 Last Admin: 07/05/18 08:53 Dose: 0.25 mg Bupropion HCl (Wellbutrin) 75 mg PO DAILY [facility] Last Admin: 07/05/18 08:50 Dose: 75 mg Famotidine (Pepcid) 20 mg PO BID [facility] Last Admin: 07/05/18 16:13 Dose: 20 mg Lactulose (Enulose) 20 gm PO DAILY PRN PRN Reason: Constipation Oxycodone HCl (Oxycodone Immediate Release Tab) 10 mg PO Q4 PRN PRN Reason: Pain, severe (8-10) Last Admin: 07/05/18 23:37 Dose: 10 mg Oxycodone HCl (Oxycontin Extended Release Tab) 20 mg PO Q12 [facility] Last Admin: 07/05/18 21:09 Dose: 20 mg Senna/Docusate Sodium (Senokot S 50 Mg-8.6 Mg) 1 tab PO [facility] Last Admin: 07/05/18 21:09 Dose: 1 tab Tamsulosin HCl (Flomax) 0.4 mg PO [facility] Last Admin: 07/05/18 21:08 Dose: 0.4 mg - Labs Labs: 07/05/18 06:15 07/04/18 05:55 - Head Exam Head Exam: ATRAUMATIC - Eye Exam Eye Exam: Normal appearance - ENT Exam ENT Exam: Mucous Membranes Dry - Respiratory Exam Respiratory Exam: NORMAL BREATHING PATTERN - Cardiovascular Exam Cardiovascular Exam: +S1, +S2 - GI/Abdominal Exam GI & Abdominal Exam: Normal Bowel Sounds Assessment and Plan (1) Anemia Assessment & Plan: anemia of chronic disease from malignancy Status: Acute (2) Bladder cancer Assessment & Plan: stage IV has not received chemotherapy in 3-4 months s/p recent palliative radiation to bone metastasis recommend palliative care evaluation past hospice discussion declined Status: Chronic
[2018-07-06] MEDS: oxyCODONE 10 mg Immediate Release Tab PO PRN ×3 (06:12→18:01)
[2018-07-06] MEDS: oxyCODONE 20 mg ER Tab (oxyCONTIN) PO SCH ×2 (08:33→21:35)
--- NOTE | 2018-07-06 10:31 | CP.PCM.PN ---
<Melinda Smith - Last Filed: 07/06/18 10:29> Subjective - Date & Time of Evaluation Date of Evaluation: 07/06/18 Time of Evaluation: 09:00 - Subjective Subjective: GI Fellow PGY5 Progress Note Pt seen and evaluated at bedside, doing well with no complaints. Tolerating diet and no diarrhea. Last BM was yesterday. ROS: A 12pt ROS was negative except as above. Objective - Vital Signs/Intake and Output Vital Signs (last 24 hours): Temp Pulse Resp BP Pulse Ox 97.6 F 87 19 109/51 L 98 07/06/18 08:08 07/06/18 08:08 07/06/18 08:08 07/06/18 08:08 07/06/18 08:08 Intake and Output: 07/06/18 07/06/18 06:59 18:59 Output Total 1050 Balance -1050 - Medications Medications: Current Medications Alprazolam (Xanax) 0.25 mg PO Q6 PRN PRN Reason: Anxiety Stop: 07/08/18 06:32 Last Admin: 07/06/18 08:33 Dose: 0.25 mg Bupropion HCl (Wellbutrin) 75 mg PO DAILY [facility] Last Admin: 07/06/18 08:33 Dose: 75 mg Famotidine (Pepcid) 20 mg PO BID [facility] Last Admin: 07/06/18 08:33 Dose: 20 mg Lactulose (Enulose) 20 gm PO DAILY PRN PRN Reason: Constipation Oxycodone HCl (Oxycodone Immediate Release Tab) 10 mg PO Q4 PRN PRN Reason: Pain, severe (8-10) Last Admin: 07/06/18 06:12 Dose: 10 mg Oxycodone HCl (Oxycontin Extended Release Tab) 20 mg PO Q12 [facility] Last Admin: 07/06/18 08:33 Dose: 20 mg Senna/Docusate Sodium (Senokot S 50 Mg-8.6 Mg) 1 tab PO HS [facility] Last Admin: 07/05/18 21:09 Dose: 1 tab Tamsulosin HCl (Flomax) 0.4 mg PO HS [facility] Last Admin: 07/05/18 21:08 Dose: 0.4 mg - Labs Labs: 07/05/18 06:15 07/04/18 05:55 - Constitutional Appears: Non-toxic, No Acute Distress - Head Exam Head Exam: ATRAUMATIC, NORMAL INSPECTION, NORMOCEPHALIC - Eye Exam Eye Exam: EOMI, Normal appearance, PERRL - ENT Exam ENT Exam: Mucous Membranes Moist - Neck Exam Neck Exam: Full ROM - Respiratory Exam Respiratory Exam: Clear to Ausculation Bilateral, NORMAL BREATHING PATTERN - Cardiovascular Exam Cardiovascular Exam: +S1, +S2 - GI/Abdominal Exam GI & Abdominal Exam: Soft, Normal Bowel Sounds. absent: Distended, Firm, Tenderness - Rectal Exam Rectal Exam: absent: Deferred - Extremities Exam Extremities Exam: Full ROM - Neurological Exam Neurological Exam: Alert, Awake - Psychiatric Exam Psychiatric exam: Normal Affect, Normal Mood - Skin Skin Exam: Dry, Intact, Normal Color, Warm Assessment and Plan - Assessment and Plan (Free Text) Assessment: 1. Reported Rectal bleeding-resolved 2. Anemia of chronic disease 3. GERD 4. Stage IV bladder cancer with mets 5. Constipation Plan: -Continue supportive care with pain control and antiemetics -Hgb stable at baseline, hemodynamically stable -No active GI bleeding, rectal exam negative -Monitor H/H -No plan for endoscopic evaluation at this time -Pt may benefit from outpt colonoscopy if continues rectal bleeding -Pt has intermittent constipation, CT imaging from 05/2018 reviewed with co nstipation -Pt needs bowel regimen while on pain medication -Continue lactulose daily -Continue H2 sofiya for GERD -Diet as tolerated -Please call wit any questions or concerns <Sandor Mchugh - Last Filed: 07/14/18 09:11> Objective - Vital Signs/Intake and Output Vital Signs (last 24 hours): Temp Pulse Resp BP Pulse Ox 98.5 F 85 19 115/52 L 96 07/14/18 08:06 07/14/18 08:06 07/14/18 08:06 07/14/18 08:06 07/14/18 08:06 - Medications Medications: Current Medications Acetaminophen (Tylenol 325mg Tab) 650 mg PO Q6 PRN PRN Reason: Fever >100.4 F Last Admin: 07/12/18 12:46 Dose: 650 mg Alprazolam (Xanax) 0.25 mg PO Q6 PRN PRN Reason: Anxiety Stop: 07/15/18 08:27 Last Admin: 07/10/18 22:13 Dose: 0.25 mg Bupropion HCl (Wellbutrin) 75 mg PO DAILY [facility] Last Admin: 07/14/18 09:05 Dose: 75 mg Dextrose (Dextrose 50% Inj) 0 ml IV STAT PRN; Protocol PRN Reason: Hypoglycemia Protocol Dextrose (Glutose 15) 0 gm PO ONCE PRN; Protocol PRN Reason: Hypoglycemia Protocol Potassium Chloride/Dextrose (Potassium Chl 20 Meq In D5w) 1,000 mls @ 80 mls/hr IV .[id number] [facility] Last Admin: 07/14/18 02:45 Dose: Not Given Lactulose (Enulose) 20 gm PO DAILY PRN PRN Reason: Constipation Last Admin: 07/09/18 09:14 Dose: 20 gm Lorazepam (Ativan) 0.5 mg IVP Q8 PRN PRN Reason: Agitation Last Admin: 07/10/18 04:56 Dose: 0.5 mg Ondansetron HCl (Zofran Inj) 4 mg IVP Q6 PRN PRN Reason: Nausea/Vomiting Last Admin: 07/07/18 09:47 Dose: 4 mg Oxycodone HCl (Oxycodone Immediate Release Tab) 10 mg PO Q4 PRN PRN Reason: Pain, severe (8-10) Last Admin: 07/13/18 17:00 Dose: 10 mg Oxycodone HCl (Oxycontin Extended Release Tab) 20 mg PO Q12 [facility] Last Admin: 07/14/18 09:03 Dose: 20 mg Pantoprazole Sodium (Protonix Inj) 40 mg IVP DAILY [facility] Last Admin: 07/14/18 09:05 Dose: 40 mg Potassium Chloride (Potassium Chloride Oral Soln) 60 meq PO DAILY [facility] Last Admin: 07/14/18 09:04 Dose: 60 meq Senna/Docusate Sodium (Senokot S 50 Mg-8.6 Mg) 1 tab PO HS [facility] Last Admin: 07/13/18 22:05 Dose: Not Given Tamsulosin HCl (Flomax) 0.4 mg PO [facility] Last Admin: 07/13/18 21:17 Dose: 0.4 mg - Labs Labs: 07/13/18 06:20 07/13/18 06:20 Assessment and Plan - Assessment and Plan (Free Text) Plan: Patient seen and examined Discussed with fellow and agree with above Sandor Mchugh MD, PhD
--- NOTE | 2018-07-06 11:10 | CP.PCM.PN ---
Subjective - Date & Time of Evaluation Date of Evaluation: 07/06/18 Time of Evaluation: 11:08 - Subjective Subjective: no significant changes clinically. Patient appeared to be chronically ill and debilitated Objective - Vital Signs/Intake and Output Vital Signs (last 24 hours): Temp Pulse Resp BP Pulse Ox 97.6 F 87 19 109/51 L 98 07/06/18 08:08 07/06/18 08:08 07/06/18 08:08 07/06/18 08:08 07/06/18 08:08 Intake and Output: 07/06/18 07/06/18 06:59 18:59 Output Total 1050 Balance -1050 - Medications Medications: Current Medications Alprazolam (Xanax) 0.25 mg PO Q6 PRN PRN Reason: Anxiety Stop: 07/08/18 06:32 Last Admin: 07/06/18 08:33 Dose: 0.25 mg Bupropion HCl (Wellbutrin) 75 mg PO DAILY [facility] Last Admin: 07/06/18 08:33 Dose: 75 mg Famotidine (Pepcid) 20 mg PO BID [facility] Last Admin: 07/06/18 08:33 Dose: 20 mg Lactulose (Enulose) 20 gm PO DAILY PRN PRN Reason: Constipation Oxycodone HCl (Oxycodone Immediate Release Tab) 10 mg PO Q4 PRN PRN Reason: Pain, severe (8-10) Last Admin: 07/06/18 06:12 Dose: 10 mg Oxycodone HCl (Oxycontin Extended Release Tab) 20 mg PO Q12 [facility] Last Admin: 07/06/18 08:33 Dose: 20 mg Senna/Docusate Sodium (Senokot S 50 Mg-8.6 Mg) 1 tab PO HS [facility] Last Admin: 07/05/18 21:09 Dose: 1 tab Tamsulosin HCl (Flomax) 0.4 mg PO [facility] Last Admin: 07/05/18 21:08 Dose: 0.4 mg - Labs Labs: 07/05/18 06:15 07/04/18 05:55 - Constitutional Appears: No Acute Distress - Eye Exam Eye Exam: Conjunctival injection - ENT Exam ENT Exam: Mucous Membranes Moist - Respiratory Exam Respiratory Exam: NORMAL BREATHING PATTERN. absent: Chest Wall Tenderness - Cardiovascular Exam Cardiovascular Exam: absent: Gallop, JVD, Rubs - Extremities Exam Extremities Exam: absent: Calf Tenderness - Back Exam Back Exam: absent: CVA tenderness (L), CVA tenderness (R) - Neurological Exam Neurological Exam: Altered - Psychiatric Exam Psychiatric exam: Flat Affect - Skin Skin Exam: absent: Cyanosis Assessment and Plan (1) Acute kidney failure Assessment & Plan: acute kidney injury most likely related to obstructive uropathy related to malfunction of nephrostomy. patient has baseline serum creatinine around 2.0 consistent with stage 3 CK D debility Metastatic bladder cancer with status post chemotherapy Anemia DM the plan Kidney function continued to improve serum creatinine went down 1.7 Nephrostomy care Multivitamin supplement has not received chemotherapy in 3-4 months s/p recent palliative radiation to bone metastasis Status: Acute (2) Anemia Status: Acute (3) Diabetes 1.5, managed as type 2 Status: Acute
--- NOTE | 2018-07-06 13:14 | PN ---
DATE: 07/06/2018 SUBJECTIVE: The patient seen and examined. Interim events noted. Consults noted and appreciated. Nephrology and Hematology/Oncology followup and interventions noted and appreciated. The patient remains in regular medical floor, sleeping, arousable, complains of pain, controlled with current pain medication. No new complaint of chest pain, shortness of breath or abdominal pain. PHYSICAL EXAMINATION: GENERAL: The patient is in no acute distress. VITAL SIGNS: Stable. HEART: S1 and S2. Normal and regular. LUNGS: Good bilateral air exchange. ABDOMEN: Soft and nontender. The patient has nephrostomy tube draining clear urine. EXTREMITIES: No edema. No calf swelling. No tenderness. No acute ischemia. CENTRAL NERVOUS SYSTEM: Essentially unchanged. DIAGNOSTIC DATA: Available diagnostic data reviewed. ASSESSMENT AND PLAN: Overall, the patient is medically stable. The patient is awaiting social service arrangement for safe discharge. Plan as ordered. Vinay Henderson MD
[2018-07-06] MEDS: Docusate-Senna 50 mg-8.6 mg Tab PO SCH (21:35)
[2018-07-07] MEDS: oxyCODONE 10 mg Immediate Release Tab PO PRN ×2 (04:27→15:30)
[2018-07-07] MEDS ORDERED: Enoxaparin 30 mg Syringe SC SCH ×2 (09:00→21:00)
[2018-07-07] MEDS: oxyCODONE 20 mg ER Tab (oxyCONTIN) PO SCH ×2 (09:50→21:27)
--- NOTE | 2018-07-07 10:18 | CP.PCM.PN ---
<LuisMelinda - Last Filed: 07/07/18 10:11> Subjective - Date & Time of Evaluation Date of Evaluation: 07/07/18 Time of Evaluation: 09:00 - Subjective Subjective: GI Fellow PGY5 Progress Note Pt seen and evaluated at bedside, doing well with no complaints. Tolerating diet and no diarrhea. +BM. Having some nausea this am. ROS: A 12pt ROS was negative except as above. Objective - Vital Signs/Intake and Output Vital Signs (last 24 hours): Temp Pulse Resp BP Pulse Ox 97.7 F 85 20 117/69 98 07/07/18 07:58 07/07/18 07:58 07/07/18 07:58 07/07/18 07:58 07/07/18 07:58 - Medications Medications: Current Medications Alprazolam (Xanax) 0.25 mg PO Q6 PRN PRN Reason: Anxiety Stop: 07/08/18 06:32 Last Admin: 07/07/18 09:50 Dose: 0.25 mg Bupropion HCl (Wellbutrin) 75 mg PO DAILY [facility] Last Admin: 07/07/18 09:50 Dose: 75 mg Enoxaparin Sodium (Lovenox) 30 mg SC DAILY [facility]; Protocol Famotidine (Pepcid) 20 mg PO BID [facility] Last Admin: 07/07/18 09:50 Dose: 20 mg Lactulose (Enulose) 20 gm PO DAILY PRN PRN Reason: Constipation Ondansetron HCl (Zofran Inj) 4 mg IVP Q6 PRN PRN Reason: Nausea/Vomiting Last Admin: 07/07/18 09:47 Dose: 4 mg Oxycodone HCl (Oxycodone Immediate Release Tab) 10 mg PO Q4 PRN PRN Reason: Pain, severe (8-10) Last Admin: 07/07/18 04:27 Dose: 10 mg Oxycodone HCl (Oxycontin Extended Release Tab) 20 mg PO Q12 [facility] Last Admin: 07/07/18 09:50 Dose: 20 mg Senna/Docusate Sodium (Senokot S 50 Mg-8.6 Mg) 1 tab PO HS [facility] Last Admin: 07/06/18 21:35 Dose: 1 tab Tamsulosin HCl (Flomax) 0.4 mg PO HS [facility] Last Admin: 07/06/18 21:35 Dose: 0.4 mg - Labs Labs: 07/05/18 06:15 07/04/18 05:55 - Constitutional Appears: Non-toxic, No Acute Distress - Head Exam Head Exam: ATRAUMATIC, NORMAL INSPECTION, NORMOCEPHALIC - Eye Exam Eye Exam: EOMI, Normal appearance, PERRL - Neck Exam Neck Exam: Full ROM, Normal Inspection - Respiratory Exam Respiratory Exam: Clear to Ausculation Bilateral, NORMAL BREATHING PATTERN - Cardiovascular Exam Cardiovascular Exam: RRR, +S1, +S2 - GI/Abdominal Exam GI & Abdominal Exam: Soft, Normal Bowel Sounds. absent: Distended, Firm, Guarding, Tenderness - Rectal Exam Rectal Exam: Deferred - Extremities Exam Extremities Exam: Full ROM - Neurological Exam Neurological Exam: Alert, Awake, Oriented x3 - Psychiatric Exam Psychiatric exam: Normal Affect, Normal Mood - Skin Skin Exam: Dry, Intact, Normal Color, Warm Assessment and Plan - Assessment and Plan (Free Text) Assessment: 1. Reported Rectal bleeding-resolved 2. Anemia of chronic disease 3. GERD 4. Stage IV bladder cancer with mets 5. Constipation Plan: -Continue supportive care with pain control -Antiemetics prn nausea -Hgb stable at baseline, hemodynamically stable -No active GI bleeding -Pt has intermittent constipation -Bowel regimen while on pain medication -Continue lactulose daily -Continue H2 sofiya for GERD -Diet as tolerated -Please call with any questions or concerns <Sandor Mchugh - Last Filed: 07/14/18 09:09> Objective - Vital Signs/Intake and Output Vital Signs (last 24 hours): Temp Pulse Resp BP Pulse Ox 98.5 F 85 19 115/52 L 96 07/14/18 08:06 07/14/18 08:06 07/14/18 08:06 07/14/18 08:06 07/14/18 08:06 - Medications Medications: Current Medications Acetaminophen (Tylenol 325mg Tab) 650 mg PO Q6 PRN PRN Reason: Fever >100.4 F Last Admin: 07/12/18 12:46 Dose: 650 mg Alprazolam (Xanax) 0.25 mg PO Q6 PRN PRN Reason: Anxiety Stop: 07/15/18 08:27 Last Admin: 07/10/18 22:13 Dose: 0.25 mg Bupropion HCl (Wellbutrin) 75 mg PO DAILY [facility] Last Admin: 07/14/18 09:05 Dose: 75 mg Dextrose (Dextrose 50% Inj) 0 ml IV STAT PRN; Protocol PRN Reason: Hypoglycemia Protocol Dextrose (Glutose 15) 0 gm PO ONCE PRN; Protocol PRN Reason: Hypoglycemia Protocol Potassium Chloride/Dextrose (Potassium Chl 20 Meq In D5w) 1,000 mls @ 80 mls/hr IV .[id number] [facility] Last Admin: 07/14/18 02:45 Dose: Not Given Lactulose (Enulose) 20 gm PO DAILY PRN PRN Reason: Constipation Last Admin: 07/09/18 09:14 Dose: 20 gm Lorazepam (Ativan) 0.5 mg IVP Q8 PRN PRN Reason: Agitation Last Admin: 07/10/18 04:56 Dose: 0.5 mg Ondansetron HCl (Zofran Inj) 4 mg IVP Q6 PRN PRN Reason: Nausea/Vomiting Last Admin: 07/07/18 09:47 Dose: 4 mg Oxycodone HCl (Oxycodone Immediate Release Tab) 10 mg PO Q4 PRN PRN Reason: Pain, severe (8-10) Last Admin: 07/13/18 17:00 Dose: 10 mg Oxycodone HCl (Oxycontin Extended Release Tab) 20 mg PO Q12 [facility] Last Admin: 07/14/18 09:03 Dose: 20 mg Pantoprazole Sodium (Protonix Inj) 40 mg IVP DAILY [facility] Last Admin: 07/14/18 09:05 Dose: 40 mg Potassium Chloride (Potassium Chloride Oral Soln) 60 meq PO DAILY [facility] Last Admin: 07/14/18 09:04 Dose: 60 meq Senna/Docusate Sodium (Senokot S 50 Mg-8.6 Mg) 1 tab PO HS [facility] Last Admin: 07/13/18 22:05 Dose: Not Given Tamsulosin HCl (Flomax) 0.4 mg PO [facility] Last Admin: 07/13/18 21:17 Dose: 0.4 mg - Labs Labs: 07/13/18 06:20 07/13/18 06:20 Assessment and Plan - Assessment and Plan (Free Text) Plan: Patient seen and examined Discussed with fellow and agree with above Sandor Mchugh MD, PhD
--- NOTE | 2018-07-07 10:53 | CP.PCM.PN ---
Subjective - Date & Time of Evaluation Date of Evaluation: 07/07/18 Time of Evaluation: 10:51 - Subjective Subjective: no significant changes clinically Wayne appeared to be debilitated Objective - Vital Signs/Intake and Output Vital Signs (last 24 hours): Temp Pulse Resp BP Pulse Ox 97.7 F 85 20 117/69 98 07/07/18 07:58 07/07/18 07:58 07/07/18 07:58 07/07/18 07:58 07/07/18 07:58 - Medications Medications: Current Medications Alprazolam (Xanax) 0.25 mg PO Q6 PRN PRN Reason: Anxiety Stop: 07/08/18 06:32 Last Admin: 07/07/18 09:50 Dose: 0.25 mg Bupropion HCl (Wellbutrin) 75 mg PO DAILY [facility] Last Admin: 07/07/18 09:50 Dose: 75 mg Enoxaparin Sodium (Lovenox) 30 mg SC DAILY [facility]; Protocol Famotidine (Pepcid) 20 mg PO BID [facility] Last Admin: 07/07/18 09:50 Dose: 20 mg Lactulose (Enulose) 20 gm PO DAILY PRN PRN Reason: Constipation Ondansetron HCl (Zofran Inj) 4 mg IVP Q6 PRN PRN Reason: Nausea/Vomiting Last Admin: 07/07/18 09:47 Dose: 4 mg Oxycodone HCl (Oxycodone Immediate Release Tab) 10 mg PO Q4 PRN PRN Reason: Pain, severe (8-10) Last Admin: 07/07/18 04:27 Dose: 10 mg Oxycodone HCl (Oxycontin Extended Release Tab) 20 mg PO Q12 [facility] Last Admin: 07/07/18 09:50 Dose: 20 mg Senna/Docusate Sodium (Senokot S 50 Mg-8.6 Mg) 1 tab PO HS [facility] Last Admin: 07/06/18 21:35 Dose: 1 tab Tamsulosin HCl (Flomax) 0.4 mg PO HS [facility] Last Admin: 07/06/18 21:35 Dose: 0.4 mg - Labs Labs: 07/05/18 06:15 07/04/18 05:55 - Eye Exam Eye Exam: Conjunctival injection - ENT Exam ENT Exam: Mucous Membranes Dry - Respiratory Exam Respiratory Exam: Clear to Ausculation Bilateral, NORMAL BREATHING PATTERN - Cardiovascular Exam Cardiovascular Exam: absent: Gallop, JVD - GI/Abdominal Exam GI & Abdominal Exam: Soft, Normal Bowel Sounds - Extremities Exam Extremities Exam: absent: Calf Tenderness - Back Exam Back Exam: absent: CVA tenderness (L), CVA tenderness (R) - Neurological Exam Neurological Exam: Alert - Skin Skin Exam: absent: Cyanosis Assessment and Plan (1) Acute kidney failure Assessment & Plan: acute kidney injury most likely related to obstructive uropathy related to malfunction of nephrostomy. patient has baseline serum creatinine around 2.0 consistent with stage 3 CK D debility Metastatic bladder cancer with status post chemotherapy Anemia DM the plan Kidney function continued to improve serum creatinine went down 1.7 Nephrostomy care Multivitamin supplement has not received chemotherapy in 3-4 months s/p recent palliative radiation to bone metastasis Status: Acute (2) Anemia Status: Acute (3) Diabetes 1.5, managed as type 2 Status: Acute
--- NOTE | 2018-07-07 13:55 | PN ---
DATE: 07/07/2018 SUBJECTIVE: The patient seen and examined. Interim events noted. Consults noted and appreciated. ,Gastroenterology and Nephrology followup and interventions noted and appreciated. The patient remains in regular medical floor. The patient is sleepy, arousable, feels okay. Denies any specific new complaints. Complains of generalized pain, which is controlled with current pain medication. PHYSICAL EXAMINATION: GENERAL: The patient is in no acute distress. VITAL SIGNS: Stable. HEART: S1 and S2. Normal and regular. LUNGS: Good bilateral air exchange. ABDOMEN: Soft and nontender. The patient has two nephrostomy tubes draining clear urine. EXTREMITIES: No calf swelling. No tenderness. No acute ischemia. CENTRAL NERVOUS SYSTEM: Exam is essentially unchanged. DIAGNOSTIC DATA: Available diagnostic data reviewed. ASSESSMENT AND PLAN: Overall, the patient's general medical condition is stable. The patient is awaiting for social service arrangement for safe discharge. Plan as ordered. Vinay Henderson MD
[2018-07-07 16:37] LABS: HEMOGLOBIN 8.6 g/dL (12.0-18.0); MEAN CELL VOLUME 91.8 fl (80.0-94.0); MEAN CORPUSCULAR HEMOGLOBIN 30.4 pg (27.0-31.0); MEAN CORPUSCULAR HGB CONC 33.1 g/dL (33.0-37.0); RBC 2.84 Mil/uL (4.40-5.90); RED CELL DISTRIBUTION WIDTH 18.8 % (11.5-14.5); WHITE BLOOD COUNT 4.1 K/uL (4.8-10.8)
[2018-07-07 17:11] LABS: CALCIUM 7.7 mg/dL (8.4-10.2)
--- NOTE | 2018-07-07 21:06 | CP.PCM.PN ---
Subjective - Date & Time of Evaluation Date of Evaluation: 07/06/18 Time of Evaluation: 12:00 - Subjective Subjective: Seen eating Objective - Vital Signs/Intake and Output Vital Signs (last 24 hours): Temp Pulse Resp BP Pulse Ox 98 F 84 20 116/60 99 07/07/18 16:38 07/07/18 16:38 07/07/18 16:38 07/07/18 16:38 07/07/18 16:38 Intake and Output: 07/07/18 07/08/18 18:59 06:59 Output Total 600 Balance -600 - Medications Medications: Current Medications Alprazolam (Xanax) 0.25 mg PO Q6 PRN PRN Reason: Anxiety Stop: 07/08/18 06:32 Last Admin: 07/07/18 09:50 Dose: 0.25 mg Bupropion HCl (Wellbutrin) 75 mg PO DAILY [facility] Last Admin: 07/07/18 09:50 Dose: 75 mg Enoxaparin Sodium (Lovenox) 30 mg SC DAILY@2100 [facility]; Protocol Famotidine (Pepcid) 20 mg PO BID [facility] Last Admin: 07/07/18 16:29 Dose: 20 mg Lactulose (Enulose) 20 gm PO DAILY PRN PRN Reason: Constipation Ondansetron HCl (Zofran Inj) 4 mg IVP Q6 PRN PRN Reason: Nausea/Vomiting Last Admin: 07/07/18 09:47 Dose: 4 mg Oxycodone HCl (Oxycodone Immediate Release Tab) 10 mg PO Q4 PRN PRN Reason: Pain, severe (8-10) Last Admin: 07/07/18 15:30 Dose: 10 mg Oxycodone HCl (Oxycontin Extended Release Tab) 20 mg PO Q12 [facility] Last Admin: 07/07/18 09:50 Dose: 20 mg Senna/Docusate Sodium (Senokot S 50 Mg-8.6 Mg) 1 tab PO HS [facility] Last Admin: 07/06/18 21:35 Dose: 1 tab Tamsulosin HCl (Flomax) 0.4 mg PO HS [facility] Last Admin: 07/06/18 21:35 Dose: 0.4 mg - Labs Labs: 07/07/18 16:15 07/07/18 16:15 - Head Exam Head Exam: ATRAUMATIC - Eye Exam Eye Exam: Normal appearance - ENT Exam ENT Exam: Mucous Membranes Dry - Respiratory Exam Respiratory Exam: NORMAL BREATHING PATTERN - Cardiovascular Exam Cardiovascular Exam: +S1, +S2 - GI/Abdominal Exam GI & Abdominal Exam: Normal Bowel Sounds Assessment and Plan (1) Anemia Assessment & Plan: anemia of chronic disease from malignancy Status: Acute (2) Bladder cancer Assessment & Plan: stage IV has not received chemotherapy in 3-4 months s/p recent palliative radiation to bone metastasis past hospice discussion declined for placement Status: Chronic
--- NOTE | 2018-07-07 21:07 | CP.PCM.PN ---
Subjective - Date & Time of Evaluation Date of Evaluation: 07/07/18 Time of Evaluation: 13:00 - Subjective Subjective: No complaints. Objective - Vital Signs/Intake and Output Vital Signs (last 24 hours): Temp Pulse Resp BP Pulse Ox 98 F 84 20 116/60 99 07/07/18 16:38 07/07/18 16:38 07/07/18 16:38 07/07/18 16:38 07/07/18 16:38 Intake and Output: 07/07/18 07/08/18 18:59 06:59 Output Total 600 Balance -600 - Medications Medications: Current Medications Alprazolam (Xanax) 0.25 mg PO Q6 PRN PRN Reason: Anxiety Stop: 07/08/18 06:32 Last Admin: 07/07/18 09:50 Dose: 0.25 mg Bupropion HCl (Wellbutrin) 75 mg PO DAILY [facility] Last Admin: 07/07/18 09:50 Dose: 75 mg Enoxaparin Sodium (Lovenox) 30 mg SC DAILY@2100 [facility]; Protocol Famotidine (Pepcid) 20 mg PO BID [facility] Last Admin: 07/07/18 16:29 Dose: 20 mg Lactulose (Enulose) 20 gm PO DAILY PRN PRN Reason: Constipation Ondansetron HCl (Zofran Inj) 4 mg IVP Q6 PRN PRN Reason: Nausea/Vomiting Last Admin: 07/07/18 09:47 Dose: 4 mg Oxycodone HCl (Oxycodone Immediate Release Tab) 10 mg PO Q4 PRN PRN Reason: Pain, severe (8-10) Last Admin: 07/07/18 15:30 Dose: 10 mg Oxycodone HCl (Oxycontin Extended Release Tab) 20 mg PO Q12 [facility] Last Admin: 07/07/18 09:50 Dose: 20 mg Senna/Docusate Sodium (Senokot S 50 Mg-8.6 Mg) 1 tab PO HS [facility] Last Admin: 07/06/18 21:35 Dose: 1 tab Tamsulosin HCl (Flomax) 0.4 mg PO HS [facility] Last Admin: 07/06/18 21:35 Dose: 0.4 mg - Labs Labs: 07/07/18 16:15 07/07/18 16:15 - Head Exam Head Exam: ATRAUMATIC - Eye Exam Eye Exam: Normal appearance - ENT Exam ENT Exam: Mucous Membranes Dry - Respiratory Exam Respiratory Exam: NORMAL BREATHING PATTERN - Cardiovascular Exam Cardiovascular Exam: +S1, +S2 - GI/Abdominal Exam GI & Abdominal Exam: Normal Bowel Sounds Assessment and Plan (1) Anemia Assessment & Plan: anemia of chronic disease from malignancy Status: Acute (2) Bladder cancer Assessment & Plan: stage IV has not received chemotherapy in 3-4 months s/p recent palliative radiation to bone metastasis past hospice discussion declined for placement Status: Chronic
[2018-07-07] MEDS: Docusate-Senna 50 mg-8.6 mg Tab PO SCH (21:28)
--- NOTE | 2018-07-08 07:38 | CP.PCM.PN ---
<Melinda Smith - Last Filed: 07/08/18 07:36> Subjective - Date & Time of Evaluation Date of Evaluation: 07/08/18 Time of Evaluation: 06:00 - Subjective Subjective: GI Fellow PGY5 Progress Note Pt seen and evaluated, doing better with no abdominal pain. Eating food.+BM yesterday. No rectal bleeding. No fevers or chills. ROS: A 12pt ROS was negative except as above. Objective - Vital Signs/Intake and Output Vital Signs (last 24 hours): Temp Pulse Resp BP Pulse Ox 98.3 F 95 H 20 101/63 96 07/08/18 00:26 07/08/18 00:26 07/08/18 00:26 07/08/18 00:26 07/08/18 00:26 - Medications Medications: Current Medications Bupropion HCl (Wellbutrin) 75 mg PO DAILY [facility] Last Admin: 07/07/18 09:50 Dose: 75 mg Enoxaparin Sodium (Lovenox) 30 mg SC DAILY@2100 [facility]; Protocol Last Admin: 07/07/18 21:28 Dose: 30 mg Famotidine (Pepcid) 20 mg PO BID [facility] Last Admin: 07/07/18 16:29 Dose: 20 mg Lactulose (Enulose) 20 gm PO DAILY PRN PRN Reason: Constipation Ondansetron HCl (Zofran Inj) 4 mg IVP Q6 PRN PRN Reason: Nausea/Vomiting Last Admin: 07/07/18 09:47 Dose: 4 mg Oxycodone HCl (Oxycodone Immediate Release Tab) 10 mg PO Q4 PRN PRN Reason: Pain, severe (8-10) Last Admin: 07/07/18 15:30 Dose: 10 mg Oxycodone HCl (Oxycontin Extended Release Tab) 20 mg PO Q12 [facility] Last Admin: 07/07/18 21:27 Dose: 20 mg Senna/Docusate Sodium (Senokot S 50 Mg-8.6 Mg) 1 tab PO [facility] Last Admin: 07/07/18 21:28 Dose: 1 tab Tamsulosin HCl (Flomax) 0.4 mg PO HS [facility] Last Admin: 07/07/18 21:27 Dose: 0.4 mg - Labs Labs: 07/07/18 16:15 07/07/18 16:15 - Constitutional Appears: Non-toxic, No Acute Distress - Head Exam Head Exam: ATRAUMATIC, NORMAL INSPECTION, NORMOCEPHALIC - Eye Exam Pupil Exam: PERRL - ENT Exam ENT Exam: Mucous Membranes Moist - Respiratory Exam Respiratory Exam: Clear to Ausculation Bilateral, NORMAL BREATHING PATTERN - Cardiovascular Exam Cardiovascular Exam: RRR, +S1, +S2 - GI/Abdominal Exam GI & Abdominal Exam: Soft, Normal Bowel Sounds. absent: Distended, Firm, Guarding, Tenderness, Organomegaly - Neurological Exam Neurological Exam: Alert, Awake - Psychiatric Exam Psychiatric exam: Normal Affect, Normal Mood - Skin Skin Exam: Dry, Intact, Normal Color, Warm Assessment and Plan - Assessment and Plan (Free Text) Assessment: 1. Reported Rectal bleeding-resolved 2. Anemia of chronic disease 3. GERD 4. Stage IV bladder cancer with mets 5. Constipation Plan: -Continue supportive care with pain control -Antiemetics prn nausea -Hgb stable at baseline, hemodynamically stable -No active GI bleeding -Pt has intermittent constipation -Bowel regimen while on pain medication -Continue lactulose daily -Continue H2 sofiya for GERD -Diet as tolerated -Please call with any questions or concerns <Sandor Mchugh - Last Filed: 07/14/18 09:06> Objective - Vital Signs/Intake and Output Vital Signs (last 24 hours): Temp Pulse Resp BP Pulse Ox 98.5 F 85 19 115/52 L 96 07/14/18 08:06 07/14/18 08:06 07/14/18 08:06 07/14/18 08:06 07/14/18 08:06 - Medications Medications: Current Medications Acetaminophen (Tylenol 325mg Tab) 650 mg PO Q6 PRN PRN Reason: Fever >100.4 F Last Admin: 07/12/18 12:46 Dose: 650 mg Alprazolam (Xanax) 0.25 mg PO Q6 PRN PRN Reason: Anxiety Stop: 07/15/18 08:27 Last Admin: 07/10/18 22:13 Dose: 0.25 mg Bupropion HCl (Wellbutrin) 75 mg PO DAILY [facility] Last Admin: 07/14/18 09:05 Dose: 75 mg Dextrose (Dextrose 50% Inj) 0 ml IV STAT PRN; Protocol PRN Reason: Hypoglycemia Protocol Dextrose (Glutose 15) 0 gm PO ONCE PRN; Protocol PRN Reason: Hypoglycemia Protocol Potassium Chloride/Dextrose (Potassium Chl 20 Meq In D5w) 1,000 mls @ 80 mls/hr IV .[id number] [facility] Last Admin: 07/14/18 02:45 Dose: Not Given Lactulose (Enulose) 20 gm PO DAILY PRN PRN Reason: Constipation Last Admin: 07/09/18 09:14 Dose: 20 gm Lorazepam (Ativan) 0.5 mg IVP Q8 PRN PRN Reason: Agitation Last Admin: 07/10/18 04:56 Dose: 0.5 mg Ondansetron HCl (Zofran Inj) 4 mg IVP Q6 PRN PRN Reason: Nausea/Vomiting Last Admin: 07/07/18 09:47 Dose: 4 mg Oxycodone HCl (Oxycodone Immediate Release Tab) 10 mg PO Q4 PRN PRN Reason: Pain, severe (8-10) Last Admin: 07/13/18 17:00 Dose: 10 mg Oxycodone HCl (Oxycontin Extended Release Tab) 20 mg PO Q12 [facility] Last Admin: 07/14/18 09:03 Dose: 20 mg Pantoprazole Sodium (Protonix Inj) 40 mg IVP DAILY [facility] Last Admin: 07/14/18 09:05 Dose: 40 mg Potassium Chloride (Potassium Chloride Oral Soln) 60 meq PO DAILY [facility] Last Admin: 07/14/18 09:04 Dose: 60 meq Senna/Docusate Sodium (Senokot S 50 Mg-8.6 Mg) 1 tab PO [facility] Last Admin: 07/13/18 22:05 Dose: Not Given Tamsulosin HCl (Flomax) 0.4 mg PO [facility] Last Admin: 07/13/18 21:17 Dose: 0.4 mg - Labs Labs: 07/13/18 06:20 07/13/18 06:20 Assessment and Plan - Assessment and Plan (Free Text) Plan: Patient seen and examined Discussed with fellow and agree with above Sandor Mchugh MD, PhD
[2018-07-08] MEDS: oxyCODONE 20 mg ER Tab (oxyCONTIN) PO SCH ×2 (08:20→22:00)
--- NOTE | 2018-07-08 09:15 | CP.PCM.PN ---
Subjective - Date & Time of Evaluation Date of Evaluation: 07/08/18 Time of Evaluation: 09:14 - Subjective Subjective: awake and no significant changes clinically Patient appeared to be chronically debilitated Objective - Vital Signs/Intake and Output Vital Signs (last 24 hours): Temp Pulse Resp BP Pulse Ox 98.1 F 84 20 114/63 98 07/08/18 08:49 07/08/18 08:49 07/08/18 08:49 07/08/18 08:49 07/08/18 08:49 - Medications Medications: Current Medications Alprazolam (Xanax) 0.25 mg PO Q6 PRN PRN Reason: Anxiety Stop: 07/15/18 08:27 Last Admin: 07/08/18 09:03 Dose: 0.25 mg Bupropion HCl (Wellbutrin) 75 mg PO DAILY [facility] Last Admin: 07/08/18 08:24 Dose: 75 mg Enoxaparin Sodium (Lovenox) 30 mg SC DAILY@2100 [facility]; Protocol Last Admin: 07/07/18 21:28 Dose: 30 mg Famotidine (Pepcid) 20 mg PO BID [facility] Last Admin: 07/08/18 08:23 Dose: 20 mg Lactulose (Enulose) 20 gm PO DAILY PRN PRN Reason: Constipation Ondansetron HCl (Zofran Inj) 4 mg IVP Q6 PRN PRN Reason: Nausea/Vomiting Last Admin: 07/07/18 09:47 Dose: 4 mg Oxycodone HCl (Oxycodone Immediate Release Tab) 10 mg PO Q4 PRN PRN Reason: Pain, severe (8-10) Last Admin: 07/07/18 15:30 Dose: 10 mg Oxycodone HCl (Oxycontin Extended Release Tab) 20 mg PO Q12 [facility] Last Admin: 07/08/18 08:20 Dose: 20 mg Senna/Docusate Sodium (Senokot S 50 Mg-8.6 Mg) 1 tab PO [facility] Last Admin: 07/07/18 21:28 Dose: 1 tab Tamsulosin HCl (Flomax) 0.4 mg PO HS [facility] Last Admin: 07/07/18 21:27 Dose: 0.4 mg - Labs Labs: 07/07/18 16:15 07/07/18 16:15 - Constitutional Appears: No Acute Distress - ENT Exam ENT Exam: Mucous Membranes Moist - Respiratory Exam Respiratory Exam: NORMAL BREATHING PATTERN - GI/Abdominal Exam GI & Abdominal Exam: Soft, Normal Bowel Sounds - Back Exam Back Exam: absent: CVA tenderness (L), CVA tenderness (R) - Neurological Exam Neurological Exam: Alert - Skin Skin Exam: absent: Cyanosis Assessment and Plan (1) Acute kidney failure Assessment & Plan: acute kidney injury most likely related to obstructive uropathy related to malfunction of nephrostomy. patient has baseline serum creatinine around 2.5consistent with stage 3 CK D debility Metastatic bladder cancer with status post chemotherapy Anemia DM the plan Kidney function worsening again serum creatinine back up 2.6. Patient need to force fluid either by mouth or intravenous IV fluid Nephrostomy care Multivitamin supplement has not received chemotherapy in 3-4 months s/p recent palliative radiation to bone metastasis Status: Acute (2) Anemia Status: Acute (3) Diabetes 1.5, managed as type 2 Status: Acute
[2018-07-08] MEDS: Sodium Chloride 0.9% 1,000 ML IV SCH (10:23)
--- NOTE | 2018-07-08 12:43 | CP.PCM.PN ---
Subjective - Date & Time of Evaluation Date of Evaluation: 07/08/18 Time of Evaluation: 10:00 - Subjective Subjective: No complaints. Objective - Vital Signs/Intake and Output Vital Signs (last 24 hours): Temp Pulse Resp BP Pulse Ox 98.1 F 84 20 114/63 98 07/08/18 08:49 07/08/18 08:49 07/08/18 08:49 07/08/18 08:49 07/08/18 08:49 - Medications Medications: Current Medications Alprazolam (Xanax) 0.25 mg PO Q6 PRN PRN Reason: Anxiety Stop: 07/15/18 08:27 Last Admin: 07/08/18 09:03 Dose: 0.25 mg Bupropion HCl (Wellbutrin) 75 mg PO DAILY [facility] Last Admin: 07/08/18 08:24 Dose: 75 mg Famotidine (Pepcid) 20 mg PO BID [facility] Last Admin: 07/08/18 08:23 Dose: 20 mg Sodium Chloride (Sodium Chloride 0.9%) 1,000 mls @ 80 mls/hr IV .[id number] [facility] Stop: 07/09/18 09:41 Last Admin: 07/08/18 10:23 Dose: 80 mls/hr Lactulose (Enulose) 20 gm PO DAILY PRN PRN Reason: Constipation Ondansetron HCl (Zofran Inj) 4 mg IVP Q6 PRN PRN Reason: Nausea/Vomiting Last Admin: 07/07/18 09:47 Dose: 4 mg Oxycodone HCl (Oxycodone Immediate Release Tab) 10 mg PO Q4 PRN PRN Reason: Pain, severe (8-10) Last Admin: 07/07/18 15:30 Dose: 10 mg Oxycodone HCl (Oxycontin Extended Release Tab) 20 mg PO Q12 [facility] Last Admin: 07/08/18 08:20 Dose: 20 mg Senna/Docusate Sodium (Senokot S 50 Mg-8.6 Mg) 1 tab PO HS [facility] Last Admin: 07/07/18 21:28 Dose: 1 tab Tamsulosin HCl (Flomax) 0.4 mg PO HS [facility] Last Admin: 07/07/18 21:27 Dose: 0.4 mg - Labs Labs: 07/07/18 16:15 07/07/18 16:15 - Head Exam Head Exam: ATRAUMATIC - Eye Exam Eye Exam: Normal appearance - ENT Exam ENT Exam: Mucous Membranes Dry - Respiratory Exam Respiratory Exam: NORMAL BREATHING PATTERN - Cardiovascular Exam Cardiovascular Exam: +S1, +S2 - GI/Abdominal Exam GI & Abdominal Exam: Normal Bowel Sounds Assessment and Plan (1) Anemia Assessment & Plan: anemia of chronic disease from malignancy Status: Acute (2) Bladder cancer Assessment & Plan: stage IV has not received chemotherapy in 3-4 months s/p recent palliative radiation to bone metastasis past hospice discussion declined for placement Status: Chronic
--- NOTE | 2018-07-08 13:07 | PN ---
DATE: 07/08/2018 SUBJECTIVE: The patient seen and examined. Interim events noted. The patient remains in regular medical floor, awake and responsive, feels okay. Denies any specific complaint. Pain is present, but controlled. PHYSICAL EXAMINATION: GENERAL: The patient is in no acute distress. VITAL SIGNS: Stable. Physical exam in essentially unchanged. DIAGNOSTIC DATA: Available diagnostic data reviewed. ASSESSMENT AND PLAN: Overall, the patient is medically stable. Awaiting social service arrangement. Plan as ordered. Vinay Henderson MD
[2018-07-08] MEDS: oxyCODONE 10 mg Immediate Release Tab PO PRN (16:53)
[2018-07-08] MEDS ORDERED: Dextrose 50% SYRINGE Inj (50 ml) ONE (17:42)
[2018-07-08] MEDS ORDERED: Dextrose 50% SYRINGE Inj (50 ml) IVP ONE (17:50)
[2018-07-08] MEDS ORDERED: Dextrose 50% SYRINGE Inj (50 ml) IV PRN (17:50)
[2018-07-08] MEDS: Docusate-Senna 50 mg-8.6 mg Tab PO SCH (22:01)
[2018-07-09] MEDS: oxyCODONE 10 mg Immediate Release Tab PO PRN ×2 (00:36→04:14)
[2018-07-09] MEDS: Sodium Chloride 0.9% 1,000 ML IV SCH ×2 (00:36→08:20)
--- NOTE | 2018-07-09 08:47 | PN ---
DATE: 07/09/2018 SUBJECTIVE: The patient is seen and examined. Interim events noted. Consults noted and appreciated. Nephrology and hematology/oncology consult and followup noted and appreciated. The patient remains in regular medical floor. The patient is sleeping, arousable, complains of generalized pain, not usual pain, controlled with current medication. No new complaint of chest pain or shortness of breath. PHYSICAL EXAMINATION: GENERAL: The patient is in no acute distress. VITAL SIGNS: Stable. HEART: S1, S2 normal and regular. LUNGS: Good bilateral air exchange. ABDOMEN: Soft, nontender. EXTREMITIES: No edema. No calf swelling. No tenderness. No acute ischemia. CENTRAL NERVOUS SYSTEM: Essentially unchanged. GENITOURINARY: The patient has bilateral nephrostomy tube draining clear urine. DIAGNOSTIC DATA: Available diagnostic data reviewed. ASSESSMENT AND PLAN: Overall, the patient's general medical condition is stable. Plan as ordered. Vinay Henderson MD [id number]
[2018-07-09] MEDS: oxyCODONE 20 mg ER Tab (oxyCONTIN) PO SCH ×2 (09:10→22:21)
--- NOTE | 2018-07-09 15:03 | CP.PCM.PN ---
Subjective - Date & Time of Evaluation Date of Evaluation: 07/09/18 Time of Evaluation: 14:59 - Subjective Subjective: RENAL seen and examined no acute events o/n PE: VS as below gen: nad sclera: anicteric op: clear neck: supple cv: +S1+s2 no rub lungs: cta b/l abd: soft nt nd no organomegaly ext: no edema neuro: follows command psych: flat gu: + PCN imp: ARF/ obstructive uropathy/ anemia of renal disease / no labs to review will review once available cr was trending up on 07/07. bp slightly on low end would recc if any further drop and if not eating to bolus w/ isotonic fluids Objective - Vital Signs/Intake and Output Vital Signs (last 24 hours): Temp Pulse Resp BP Pulse Ox 97.7 F 91 H 19 102/57 L 99 07/09/18 09:27 07/09/18 09:27 07/09/18 09:27 07/09/18 09:27 07/09/18 09:27 - Medications Medications: Current Medications Alprazolam (Xanax) 0.25 mg PO Q6 PRN PRN Reason: Anxiety Stop: 07/15/18 08:27 Last Admin: 07/09/18 09:11 Dose: 0.25 mg Bupropion HCl (Wellbutrin) 75 mg PO DAILY [facility] Last Admin: 07/09/18 09:12 Dose: 75 mg Dextrose (Dextrose 50% Inj) 0 ml IV STAT PRN; Protocol PRN Reason: Hypoglycemia Protocol Dextrose (Glutose 15) 0 gm PO ONCE PRN; Protocol PRN Reason: Hypoglycemia Protocol Famotidine (Pepcid) 20 mg PO BID [facility] Last Admin: 07/09/18 09:12 Dose: 20 mg Lactulose (Enulose) 20 gm PO DAILY PRN PRN Reason: Constipation Last Admin: 07/09/18 09:14 Dose: 20 gm Ondansetron HCl (Zofran Inj) 4 mg IVP Q6 PRN PRN Reason: Nausea/Vomiting Last Admin: 07/07/18 09:47 Dose: 4 mg Oxycodone HCl (Oxycodone Immediate Release Tab) 10 mg PO Q4 PRN PRN Reason: Pain, severe (8-10) Last Admin: 07/09/18 04:14 Dose: 10 mg Oxycodone HCl (Oxycontin Extended Release Tab) 20 mg PO Q12 [facility] Last Admin: 07/09/18 09:10 Dose: 20 mg Senna/Docusate Sodium (Senokot S 50 Mg-8.6 Mg) 1 tab PO HS [facility] Last Admin: 07/08/18 22:01 Dose: 1 tab Tamsulosin HCl (Flomax) 0.4 mg PO HS [facility] Last Admin: 07/08/18 22:01 Dose: 0.4 mg - Labs Labs: 07/07/18 16:15 07/07/18 16:15
--- NOTE | 2018-07-09 15:34 | CP.PCM.DIS ---
Provider - Provider Date of Admission: 06/30/18 21:51 Attending physician: Vinay Henderson MD Time Spent in preparation of Discharge (in minutes): 25 Hospital Course - Lab Results Lab Results: Most Recent Lab Values WBC 4.1 K/uL (4.8-10.8) L 07/07/18 16:15 RBC 2.84 Mil/uL (4.40-5.90) L 07/07/18 16:15 Hgb 8.6 g/dL (12.0-18.0) L 07/07/18 16:15 Hct 26.0 % (35.0-51.0) L 07/07/18 16:15 MCV 91.8 fl (80.0-94.0) 07/07/18 16:15 MCH 30.4 pg (27.0-31.0) 07/07/18 16:15 MCHC 33.1 g/dL (33.0-37.0) 07/07/18 16:15 RDW 18.8 % (11.5-14.5) H 07/07/18 16:15 Plt Count 120 K/uL (130-400) L 07/07/18 16:15 MPV 6.3 fl (7.2-11.7) L 07/03/18 14:58 Neut % (Auto) 75.6 % (50.0-75.0) H 07/03/18 14:58 Lymph % (Auto) 10.6 % (20.0-40.0) L 07/03/18 14:58 [place] % (Auto) 9.5 % (0.0-10.0) 07/03/18 14:58 Eos % (Auto) 3.8 % (0.0-4.0) 07/03/18 14:58 Baso % (Auto) 0.5 % (0.0-2.0) 07/03/18 14:58 Neut # (Auto) 3.9 K/uL (1.8-7.0) 07/03/18 14:58 Lymph # (Auto) 0.5 K/uL (1.0-4.3) L 07/03/18 14:58 [place] # (Auto) 0.5 K/uL (0.0-0.8) 07/03/18 14:58 Eos # (Auto) 0.2 K/uL (0.0-0.7) 07/03/18 14:58 Baso # (Auto) 0.0 K/uL (0.0-0.2) 07/03/18 14:58 Sodium 142 mmol/l (132-148) 07/07/18 16:15 Potassium 4.5 MMOL/L (3.6-5.0) 07/07/18 16:15 Chloride 109 mmol/L (98-107) H 07/07/18 16:15 Carbon Dioxide 24 mmol/L (22-30) 07/07/18 16:15 Anion Gap 14 (10-20) 07/07/18 16:15 BUN 36 mg/dl (9-20) H 07/07/18 16:15 Creatinine 2.6 mg/dl (0.8-1.5) H 07/07/18 16:15 Est GFR ( Amer) 29 07/07/18 16:15 Est GFR (Non-Af Amer) 24 07/07/18 16:15 POC Glucose (mg/dL) 134 mg/dL (65-110) H 07/08/18 22:01 Random Glucose 121 mg/dL (75-110) H 07/07/18 16:15 Calcium 7.7 mg/dL (8.4-10.2) L 07/07/18 16:15 Phosphorus 3.0 mg/dl (2.5-4.5) 07/03/18 05:25 Magnesium 1.2 MG/DL (1.6-2.3) L 07/03/18 05:25 Total Bilirubin 0.4 mg/dl (0.2-1.3) 07/04/18 05:55 AST 30 U/L (17-59) 07/04/18 05:55 ALT 24 U/L (21-72) 07/04/18 05:55 Alkaline Phosphatase 1060 U/L (38-126) H 07/04/18 05:55 Total Protein 5.7 G/DL (6.3-8.2) L 07/04/18 05:55 Albumin 2.4 g/dL (3.5-5.0) L 07/04/18 05:55 Globulin 3.4 gm/dL (2.2-3.9) 07/04/18 05:55 Albumin/Globulin Ratio 0.7 (1.0-2.1) L 07/04/18 05:55 Discharge Exam - Head Exam Head Exam: ATRAUMATIC Discharge Plan - Follow Up Plan Condition: FAIR Disposition: HOME/ ROUTINE Instructions: How to Care for Your Nephrostomy Tube, Diabetes and Infections, Normocytic Normochromic Anemia (DC) Additional Instructions: follow up with primary MD 1 week Referrals: Vinay Henderson MD [Staff Provider] - Gopal Brewer MD [Staff Provider] - Haresh Wesley MD [Staff Provider] - Sandor Mchugh MD, PhD [Staff Provider] -
--- NOTE | 2018-07-09 16:10 | CP.PCM.PCO ---
Addendum entered and electronically signed by Valeria Rodriguez MD 07/09/18 19:05: Discussed with resident and agree with assessment and plan. All labs results were reviewed. Noted BUN / Cr trending up to 39/2.4 WBC 6.3 Hgb [address] head showed left scalp swelling and no acute pathology CT spine showed no acute pathology , osteoblastic mets Continue to monitor patient in telemetry Fall precautions Move patient closer to nurses station continue management as per primary team Original Note: Assessment/Plan - Assessment and Plan (Free Text) Assessment: 78 YO Male with bladder CA with mets is seen by bedside after a fall. Pt was found in the floor by RN, faced-down. Fall was not witnessed and LOC unknown. Pt is awake, agitated and confused. Pt is not oriented to name, place or time. Not answering any questions. O: VS reviewed, stable with mild tachycardia GEN: confused, agitated HEENT: approx 3x2cm abrasion in L forehead, non-bleeding. No additional trauma noted to the head or face H: S1S2 no additional heart sounds R: clear breath sounds Ext: patient is moving all extremities, small abrasions on b/l knees Neuro: AAO x 0, verbal A/P: 78 YO Male with bladder CA with mets seen post fall, unwitnessed. -CT head and heck, and CT C spine -blood work and UA for agitation and confusion
--- NOTE | 2018-07-09 17:05 | CT ---
Date of service: 07/09/2018 PROCEDURE: CT HEAD WITHOUT CONTRAST. HISTORY: s/p fall COMPARISON: CT head dated 03/25/2018. TECHNIQUE: Axial computed tomography images were obtained through the head/brain without intravenous contrast. Radiation dose: Total exam DLP = 2828.23 mGy-cm. This CT exam was performed using one or more of the following dose reduction techniques: Automated exposure control, adjustment of the mA and/or kV according to patient size, and/or use of iterative reconstruction technique. FINDINGS: HEMORRHAGE: No intracranial hemorrhage. BRAIN: No mass effect or edema. Atrophy. Chronic microvascular ischemic changes. VENTRICLES: Unremarkable. No hydrocephalus. CALVARIUM: Unremarkable. PARANASAL SINUSES: Unremarkable as visualized. No significant inflammatory changes. MASTOID AIR CELLS: Unremarkable as visualized. No inflammatory changes. OTHER FINDINGS: Left frontal scalp swelling. IMPRESSION: Left frontal scalp swelling. No calvarial fracture. No acute intracranial pathology. Age-related changes. No significant interval change.
--- NOTE | 2018-07-09 17:15 | CT ---
Date of service: 07/09/2018 PROCEDURE: CT Cervical Spine without contrast HISTORY: s/p fall COMPARISON: None available. TECHNIQUE: Axial computed tomography images were obtained of the cervical spine without the use of intravenous contrast. Coronal and sagittal reformatted images were created and reviewed. Radiation dose: Total exam DLP = 368.44 mGy-cm. This CT exam was performed using one or more of the following dose reduction techniques: Automated exposure control, adjustment of the mA and/or kV according to patient size, and/or use of iterative reconstruction technique. FINDINGS: VERTEBRAE: Diffusely sclerotic. No fracture. Normal alignment. No destructive bony lesion. DISCS/SPINAL CANAL/NEURAL FORAMINA: Multilevel disc space narrowing with disc osteophyte complexes.. PARASPINAL SOFT TISSUES: Unremarkable. OTHER FINDINGS: None. IMPRESSION: No acute fracture. Multilevel degenerative changes. 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
[2018-07-09 17:32] LABS: BASO % 0.4 % (0.0-2.0); EOS % 0.5 % (0.0-4.0); LYMPH # 0.3 K/uL (1.0-4.3); LYMPH % 4.6 % (20.0-40.0); MEAN CELL VOLUME 93.5 fl (80.0-94.0); MEAN CORPUSCULAR HEMOGLOBIN 30.6 pg (27.0-31.0); MEAN CORPUSCULAR HGB CONC 32.7 g/dL (33.0-37.0); MEAN PLATELET VOLUME 6.9 fl (7.2-11.7); MONO # 0.4 K/uL (0.0-0.8); MONO % 6.3 % (0.0-10.0); NEUT # 5.5 K/uL (1.8-7.0); NEUT % 88.2 % (50.0-75.0); PLATELET COUNT 109 K/uL (130-400); RBC 2.94 Mil/uL (4.40-5.90); RED CELL DISTRIBUTION WIDTH 18.7 % (11.5-14.5); WHITE BLOOD COUNT 6.3 K/uL (4.8-10.8)
[2018-07-09 17:45] LABS: ALB/GLOB RATIO 0.8 (1.0-2.1); ALBUMIN 2.9 g/dL (3.5-5.0); CALCIUM 7.3 mg/dL (8.4-10.2)
[2018-07-09 18:49] LABS: ACANTHOCYTES SLIGHT; ANISOCYTOSIS SLIGHT; BANDS 3 % (0-2); HYPOCHROMIC SLIGHT; LYMPHOCYTE 1 % (20-50); MONOCYTE 6 % (0-10); NEUTROPHIL 90 % (42-75); PLATELET ESTIMATE MARKEDLY DECREASED (NORMAL); TOTAL CELLS COUNTED 100
--- NOTE | 2018-07-09 19:38 | CP.PCM.PN ---
Subjective - Date & Time of Evaluation Date of Evaluation: 07/09/18 Time of Evaluation: 17:00 - Subjective Subjective: Pt fell while walking in his room; has left scalp swelling and contusion Objective - Vital Signs/Intake and Output Vital Signs (last 24 hours): Temp Pulse Resp BP Pulse Ox 100.8 F H 111 H 19 131/54 L 96 07/09/18 18:10 07/09/18 18:08 07/09/18 18:08 07/09/18 18:08 07/09/18 18:08 Intake and Output: 07/09/18 07/10/18 18:59 06:59 Intake Total 800 Output Total 975 Balance -175 - Medications Medications: Current Medications Acetaminophen (Tylenol 325mg Tab) 650 mg PO Q6 PRN PRN Reason: Fever >100.4 F Last Admin: 07/09/18 18:10 Dose: 650 mg Alprazolam (Xanax) 0.25 mg PO Q6 PRN PRN Reason: Anxiety Stop: 07/15/18 08:27 Last Admin: 07/09/18 09:11 Dose: 0.25 mg Bupropion HCl (Wellbutrin) 75 mg PO DAILY [facility] Last Admin: 07/09/18 09:12 Dose: 75 mg Dextrose (Dextrose 50% Inj) 0 ml IV STAT PRN; Protocol PRN Reason: Hypoglycemia Protocol Dextrose (Glutose 15) 0 gm PO ONCE PRN; Protocol PRN Reason: Hypoglycemia Protocol Famotidine (Pepcid) 20 mg PO BID [facility] Last Admin: 07/09/18 17:10 Dose: 20 mg Sodium Chloride (Sodium Chloride 0.9%) 1,000 mls @ 100 mls/hr IV .Q10H [facility] Stop: 07/10/18 18:59 Lactulose (Enulose) 20 gm PO DAILY PRN PRN Reason: Constipation Last Admin: 07/09/18 09:14 Dose: 20 gm Ondansetron HCl (Zofran Inj) 4 mg IVP Q6 PRN PRN Reason: Nausea/Vomiting Last Admin: 07/07/18 09:47 Dose: 4 mg Oxycodone HCl (Oxycodone Immediate Release Tab) 10 mg PO Q4 PRN PRN Reason: Pain, severe (8-10) Last Admin: 07/09/18 04:14 Dose: 10 mg Oxycodone HCl (Oxycontin Extended Release Tab) 20 mg PO Q12 [facility] Last Admin: 07/09/18 09:10 Dose: 20 mg Senna/Docusate Sodium (Senokot S 50 Mg-8.6 Mg) 1 tab PO [facility] Last Admin: 07/08/18 22:01 Dose: 1 tab Tamsulosin HCl (Flomax) 0.4 mg PO [facility] Last Admin: 07/08/18 22:01 Dose: 0.4 mg - Labs Labs: 07/09/18 17:00 07/09/18 17:00 - Eye Exam Eye Exam: Normal appearance - ENT Exam ENT Exam: Mucous Membranes Dry - Respiratory Exam Respiratory Exam: NORMAL BREATHING PATTERN - Cardiovascular Exam Cardiovascular Exam: +S1, +S2 - GI/Abdominal Exam GI & Abdominal Exam: Normal Bowel Sounds Assessment and Plan (1) Anemia Assessment & Plan: chronic disease, bone mets transfusion support PRN Status: Acute (2) Bladder cancer Assessment & Plan: stage IV not on chemotherapy for several months now s/p palliative radiation deferred hospice for placement Status: Chronic
[2018-07-09] MEDS: Docusate-Senna 50 mg-8.6 mg Tab PO SCH (22:21)
[2018-07-10] MEDS: Sodium Chloride 0.9% 1,000 ML IV SCH ×3 (03:55→14:09)
[2018-07-10 07:26] LABS: HEMOGLOBIN 8.4 g/dL (12.0-18.0); MEAN CELL VOLUME 91.2 fl (80.0-94.0); MEAN CORPUSCULAR HEMOGLOBIN 30.5 pg (27.0-31.0); MEAN CORPUSCULAR HGB CONC 33.4 g/dL (33.0-37.0); RBC 2.74 Mil/uL (4.40-5.90); RED CELL DISTRIBUTION WIDTH 18.8 % (11.5-14.5); WHITE BLOOD COUNT 5.2 K/uL (4.8-10.8)
[2018-07-10 07:40] LABS: ALB/GLOB RATIO 0.7 (1.0-2.1); ALBUMIN 2.6 g/dL (3.5-5.0); CALCIUM 7.2 mg/dL (8.4-10.2)
[2018-07-10] MEDS: oxyCODONE 20 mg ER Tab (oxyCONTIN) PO SCH ×2 (11:09→22:13)
[2018-07-10] MEDS: Docusate-Senna 50 mg-8.6 mg Tab PO SCH (22:20)
[2018-07-11] MEDS: oxyCODONE 20 mg ER Tab (oxyCONTIN) PO SCH ×2 (08:40→21:29)
--- NOTE | 2018-07-11 09:46 | PN ---
DATE: 07/10/2018 SUBJECTIVE: The patient seen and examined. Interim events noted. The patient remains in regular medical floor in a separate room, now requiring one-to-one observation as the patient had fall and was not cooperative with staying in bed, was trying to get out of bed on own. The patient had a fall and was found face down. Had CAT scan of the head and neck done, which was negative. Currently the patient is sleeping, arousable. Denies any new headache or chest pains. The patient has chronic pain, but no new pain after . PHYSICAL EXAMINATION: GENERAL: The patient is in no acute distress. VITAL SIGNS: Stable. HEART: S1 and S2, normal and regular. LUNGS: Good bilateral air exchange. ABDOMEN: Soft, nontender. EXTREMITIES: No edema. No calf swelling. No tenderness. No acute ischemia. CENTRAL NERVOUS SYSTEM: Essentially unchanged and there is no sign of any acute gross motor or sensory neurological deficits. The patient had contusion on her left forehead. No sign of . DIAGNOSTIC DATA: Available diagnostic data reviewed. ASSESSMENT AND PLAN: Overall the patient's general medical condition is stable. Plan as ordered. Vinay Henderson MD
--- NOTE | 2018-07-11 11:37 | CP.PCM.PN ---
Subjective - Date & Time of Evaluation Date of Evaluation: 07/11/18 Time of Evaluation: 11:37 - Subjective Subjective: ID note- Pt. reinaldo nd examined today. pt. apaprenly fell the other day and has bruise on his forehead. he has new onset fever today. he remains weak and c/o back pain ( chronic) from his bone mets. no diarrhea as per his nurse. pt. denies any cough or any sob. Objective - Vital Signs/Intake and Output Vital Signs (last 24 hours): Temp Pulse Resp BP Pulse Ox 101.4 F H 106 H 19 133/52 L 97 07/11/18 09:39 07/11/18 08:09 07/11/18 08:09 07/11/18 08:09 07/11/18 08:09 - Medications Medications: Current Medications Acetaminophen (Tylenol 325mg Tab) 650 mg PO Q6 PRN PRN Reason: Fever >100.4 F Last Admin: 07/11/18 08:39 Dose: 650 mg Alprazolam (Xanax) 0.25 mg PO Q6 PRN PRN Reason: Anxiety Stop: 07/15/18 08:27 Last Admin: 07/10/18 22:13 Dose: 0.25 mg Bupropion HCl (Wellbutrin) 75 mg PO DAILY [facility] Last Admin: 07/11/18 08:41 Dose: 75 mg Dextrose (Dextrose 50% Inj) 0 ml IV STAT PRN; Protocol PRN Reason: Hypoglycemia Protocol Dextrose (Glutose 15) 0 gm PO ONCE PRN; Protocol PRN Reason: Hypoglycemia Protocol Famotidine (Pepcid) 20 mg PO BID [facility] Last Admin: 07/11/18 08:40 Dose: 20 mg Sodium Chloride (Sodium Chloride 0.9%) 1,000 mls @ 100 mls/hr IV .Q10H [facility] Stop: 07/13/18 11:31 Lactulose (Enulose) 20 gm PO DAILY PRN PRN Reason: Constipation Last Admin: 07/09/18 09:14 Dose: 20 gm Lorazepam (Ativan) 0.5 mg IVP Q8 PRN PRN Reason: Agitation Last Admin: 07/10/18 04:56 Dose: 0.5 mg Ondansetron HCl (Zofran Inj) 4 mg IVP Q6 PRN PRN Reason: Nausea/Vomiting Last Admin: 07/07/18 09:47 Dose: 4 mg Oxycodone HCl (Oxycodone Immediate Release Tab) 10 mg PO Q4 PRN PRN Reason: Pain, severe (8-10) Last Admin: 07/09/18 04:14 Dose: 10 mg Oxycodone HCl (Oxycontin Extended Release Tab) 20 mg PO Q12 [facility] Last Admin: 07/11/18 08:40 Dose: 20 mg Senna/Docusate Sodium (Senokot S 50 Mg-8.6 Mg) 1 tab PO HS [facility] Last Admin: 07/10/18 22:20 Dose: Not Given Tamsulosin HCl (Flomax) 0.4 mg PO [facility] Last Admin: 07/10/18 22:14 Dose: 0.4 mg - Labs Labs: - Additional Findings Additional findings: - Constitutional Appears: No Acute Distress - Head Exam Head Exam: ATRAUMATIC - Eye Exam Eye Exam: EOMI, PERRL - ENT Exam ENT Exam: Normal Oropharynx - Neck Exam Neck exam: Positive for: Full Rom - Respiratory Exam Respiratory Exam: Clear to Auscultation Bilateral, NORMAL BREATHING PATTERN - Cardiovascular Exam Cardiovascular Exam: RRR, +S1, +S2 - GI/Abdominal Exam GI & Abdominal Exam: Normal Bowel Sounds, Soft Additional comments: NT, ND - Extremities Exam Extremities exam: Positive for: normal inspection - Back Exam Additional comments: b/l nephrostomy tubes in place, no surrounding erythema urine in bag clear b/l - Neurological Exam Neurological exam: Alert, Oriented x 3 Laboratory Results - last 72 hr 07/08/18 07/09/18 07/09/18 22:01 05:46 11:20 WBC RBC Hgb Hct MCV MCH MCHC RDW Plt Count MPV Neut % (Auto) Lymph % (Auto) Avery % (Auto) Eos % (Auto) Baso % (Auto) Neut # (Auto) Lymph # (Auto) Avery # (Auto) Eos # (Auto) Baso # (Auto) Neutrophils % (Manual) Band Neutrophils % Lymphocytes % (Manual) Monocytes % (Manual) Platelet Estimate Hypochromasia (manual) Anisocytosis (manual) Acanthocytes (Spur) Sodium Potassium Chloride Carbon Dioxide Anion Gap BUN Creatinine Est GFR ( Amer) Est GFR (Non-Af Amer) POC Glucose (mg/dL) 134 H 125 H 122 H Random Glucose Calcium Phosphorus Magnesium Total Bilirubin AST ALT Alkaline Phosphatase Total Protein Albumin Globulin Albumin/Globulin Ratio 07/09/18 07/09/18 07/09/18 15:42 17:00 17:00 WBC 6.3 D RBC 2.94 L Hgb 9.0 L Hct 27.5 L MCV 93.5 MCH 30.6 MCHC 32.7 L RDW 18.7 H Plt Count 109 L MPV 6.9 L Neut % (Auto) 88.2 H Lymph % (Auto) 4.6 L Avery % (Auto) 6.3 Eos % (Auto) 0.5 Baso % (Auto) 0.4 Neut # (Auto) 5.5 Lymph # (Auto) 0.3 L Avery # (Auto) 0.4 Eos # (Auto) 0.0 Baso # (Auto) 0.0 Neutrophils % (Manual) 90 H Band Neutrophils % 3 H Lymphocytes % (Manual) 1 L Monocytes % (Manual) 6 Platelet Estimate Markedly decreased L Hypochromasia (manual) Slight Anisocytosis (manual) Slight Acanthocytes (Spur) Slight Sodium 142 Potassium 4.3 Chloride 112 H Carbon Dioxide 20 L Anion Gap 14 BUN 39 H Creatinine 2.4 H Est GFR ( Amer) 32 Est GFR (Non-Af Amer) 26 POC Glucose (mg/dL) 100 Random Glucose 114 H Calcium 7.3 L Phosphorus Magnesium Total Bilirubin 0.7 AST 44 ALT 26 Alkaline Phosphatase 1085 H Total Protein 6.7 Albumin 2.9 L D Globulin 3.8 Albumin/Globulin Ratio 0.8 L 07/09/18 07/09/18 07/10/18 17:59 21:49 05:12 WBC RBC Hgb Hct MCV MCH MCHC RDW Plt Count MPV Neut % (Auto) Lymph % (Auto) Avery % (Auto) Eos % (Auto) Baso % (Auto) Neut # (Auto) Lymph # (Auto) Avery # (Auto) Eos # (Auto) Baso # (Auto) Neutrophils % (Manual) Band Neutrophils % Lymphocytes % (Manual) Monocytes % (Manual) Platelet Estimate Hypochromasia (manual) Anisocytosis (manual) Acanthocytes (Spur) Sodium Potassium Chloride Carbon Dioxide Anion Gap BUN Creatinine Est GFR ( Amer) Est GFR (Non-Af Amer) POC Glucose (mg/dL) 170 H 119 H 102 Random Glucose Calcium Phosphorus Magnesium Total Bilirubin AST ALT Alkaline Phosphatase Total Protein Albumin Globulin Albumin/Globulin Ratio 07/10/18 07/10/18 07/10/18 05:30 05:30 11:47 WBC 5.2 RBC 2.74 L Hgb 8.4 L Hct 25.0 L MCV 91.2 D MCH 30.5 MCHC 33.4 RDW 18.8 H Plt Count 96 L MPV Neut % (Auto) Lymph % (Auto) Avery % (Auto) Eos % (Auto) Baso % (Auto) Neut # (Auto) Lymph # (Auto) Avery # (Auto) Eos # (Auto) Baso # (Auto) Neutrophils % (Manual) Band Neutrophils % Lymphocytes % (Manual) Monocytes % (Manual) Platelet Estimate Hypochromasia (manual) Anisocytosis (manual) Acanthocytes (Spur) Sodium 143 Potassium 3.8 Chloride 113 H Carbon Dioxide 22 Anion Gap 12 BUN 37 H Creatinine 2.3 H Est GFR ( Amer) 33 Est GFR (Non-Af Amer) 27 POC Glucose (mg/dL) 99 Random Glucose 104 Calcium 7.2 L Phosphorus Magnesium Total Bilirubin 0.7 AST 55 ALT 21 Alkaline Phosphatase 979 H Total Protein 6.1 L Albumin 2.6 L Globulin 3.5 Albumin/Globulin Ratio 0.7 L 07/10/18 07/10/18 07/11/18 16:01 21:26 05:26 WBC RBC Hgb Hct MCV MCH MCHC RDW Plt Count MPV Neut % (Auto) Lymph % (Auto) Avery % (Auto) Eos % (Auto) Baso % (Auto) Neut # (Auto) Lymph # (Auto) Avery # (Auto) Eos # (Auto) Baso # (Auto) Neutrophils % (Manual) Band Neutrophils % Lymphocytes % (Manual) Monocytes % (Manual) Platelet Estimate Hypochromasia (manual) Anisocytosis (manual) Acanthocytes (Spur) Sodium Potassium Chloride Carbon Dioxide Anion Gap BUN Creatinine Est GFR ( Amer) Est GFR (Non-Af Amer) POC Glucose (mg/dL) 94 90 89 Random Glucose Calcium Phosphorus Magnesium Total Bilirubin AST ALT Alkaline Phosphatase Total Protein Albumin Globulin Albumin/Globulin Ratio 07/11/18 07/11/18 07/11/18 11:34 12:32 12:32 WBC 2.7 L RBC 2.47 L Hgb 7.6 L Hct 22.5 L MCV 91.0 MCH 30.8 MCHC 33.9 RDW 19.4 H Plt Count 94 L MPV Neut % (Auto) Lymph % (Auto) Avery % (Auto) Eos % (Auto) Baso % (Auto) Neut # (Auto) Lymph # (Auto) Avery # (Auto) Eos # (Auto) Baso # (Auto) Neutrophils % (Manual) Band Neutrophils % Lymphocytes % (Manual) Monocytes % (Manual) Platelet Estimate Hypochromasia (manual) Anisocytosis (manual) Acanthocytes (Spur) Sodium 145 Potassium 3.1 L Chloride 115 H Carbon Dioxide 21 L Anion Gap 12 BUN 33 H Creatinine 1.9 H Est GFR ( Amer) 41 Est GFR (Non-Af Amer) 34 POC Glucose (mg/dL) 126 H Random Glucose 107 Calcium 6.9 L Phosphorus 3.3 Magnesium 1.3 L Total Bilirubin 0.8 AST 36 ALT 25 Alkaline Phosphatase 822 H Total Protein 5.8 L Albumin 2.4 L Globulin 3.4 Albumin/Globulin Ratio 0.7 L 07/11/18 16:50 WBC RBC Hgb Hct MCV MCH MCHC RDW Plt Count MPV Neut % (Auto) Lymph % (Auto) Avery % (Auto) Eos % (Auto) Baso % (Auto) Neut # (Auto) Lymph # (Auto) Avery # (Auto) Eos # (Auto) Baso # (Auto) Neutrophils % (Manual) Band Neutrophils % Lymphocytes % (Manual) Monocytes % (Manual) Platelet Estimate Hypochromasia (manual) Anisocytosis (manual) Acanthocytes (Spur) Sodium Potassium Chloride Carbon Dioxide Anion Gap BUN Creatinine Est GFR ( Amer) Est GFR (Non-Af Amer) POC Glucose (mg/dL) 117 H Random Glucose Calcium Phosphorus Magnesium Total Bilirubin AST ALT Alkaline Phosphatase Total Protein Albumin Globulin Albumin/Globulin Ratio Microbiology 06/26/18 08:07 Urine,Kidney Urine Culture - Final No Growth (<1,000 CFU/ML) 06/24/18 19:01 Blood-Venous Blood Culture - Final 06/24/18 19:01 Blood-Venous Gram Stain - Final NO GROWTH AFTER 5 DAYS TEST NOT PERFORMED 06/24/18 13:53 Urine,Kidney Urine Culture - Final No Growth (<1,000 CFU/ML) 06/24/18 13:45 Blood-Venous Blood Culture - Final 06/24/18 13:45 Blood-Venous Gram Stain - Final NO GROWTH AFTER 5 DAYS TEST NOT PERFORMED 06/08/18 13:41 Urine,Catheterized Urine Culture - Final No Growth (<1,000 CFU/ML) Assessment and Plan (1) Malignant neoplasm metastatic from bladder Status: Acute (2) Obstructive uropathy Status: Acute - Assessment and Plan (Free Text) Assessment: A/P- 78 year old male with stage 4 bladder cancer with bony mets and obstructive uropathy s/p TURBT and b/l nephrostomy tubes since 11/2017 s/p multiple hospitalizations and multiorganisms UTIs all treated in the past admissions s/p twice nephrostomy tube changes with most recent one in 06/08/2018 . New onet fevers no leukocytosis actually leukopenic today. last UA- + LE but negative for any nitrates urine cx- negative x 2 this most recent admission prior admission urine cx- VRE ( was treated with linezolid as per other ID doc seeing pt. that admission). blood cx- neg x 2 last admission as well CXR- negative as per report. renal US- no hydro as per report. plan- check 2 blood cx stat. check Ua and urine cx. low wbc , advise to check Flu test now. hold off on antibiotics pending these results. all labs and notes reviewed.
--- NOTE | 2018-07-11 11:48 | CP.PCM.PN ---
Subjective - Date & Time of Evaluation Date of Evaluation: 07/11/18 Time of Evaluation: 08:30 - Subjective Subjective: no overnight events Objective - Vital Signs/Intake and Output Vital Signs (last 24 hours): Temp Pulse Resp BP Pulse Ox 101.4 F H 106 H 19 133/52 L 97 07/11/18 09:39 07/11/18 08:09 07/11/18 08:09 07/11/18 08:09 07/11/18 08:09 - Medications Medications: Current Medications Acetaminophen (Tylenol 325mg Tab) 650 mg PO Q6 PRN PRN Reason: Fever >100.4 F Last Admin: 07/11/18 08:39 Dose: 650 mg Alprazolam (Xanax) 0.25 mg PO Q6 PRN PRN Reason: Anxiety Stop: 07/15/18 08:27 Last Admin: 07/10/18 22:13 Dose: 0.25 mg Bupropion HCl (Wellbutrin) 75 mg PO DAILY [facility] Last Admin: 07/11/18 08:41 Dose: 75 mg Dextrose (Dextrose 50% Inj) 0 ml IV STAT PRN; Protocol PRN Reason: Hypoglycemia Protocol Dextrose (Glutose 15) 0 gm PO ONCE PRN; Protocol PRN Reason: Hypoglycemia Protocol Famotidine (Pepcid) 20 mg PO BID [facility] Last Admin: 07/11/18 08:40 Dose: 20 mg Sodium Chloride (Sodium Chloride 0.9%) 1,000 mls @ 100 mls/hr IV .Q10H [facility] Stop: 07/13/18 11:31 Lactulose (Enulose) 20 gm PO DAILY PRN PRN Reason: Constipation Last Admin: 07/09/18 09:14 Dose: 20 gm Lorazepam (Ativan) 0.5 mg IVP Q8 PRN PRN Reason: Agitation Last Admin: 07/10/18 04:56 Dose: 0.5 mg Ondansetron HCl (Zofran Inj) 4 mg IVP Q6 PRN PRN Reason: Nausea/Vomiting Last Admin: 07/07/18 09:47 Dose: 4 mg Oxycodone HCl (Oxycodone Immediate Release Tab) 10 mg PO Q4 PRN PRN Reason: Pain, severe (8-10) Last Admin: 07/09/18 04:14 Dose: 10 mg Oxycodone HCl (Oxycontin Extended Release Tab) 20 mg PO Q12 [facility] Last Admin: 07/11/18 08:40 Dose: 20 mg Senna/Docusate Sodium (Senokot S 50 Mg-8.6 Mg) 1 tab PO [facility] Last Admin: 07/10/18 22:20 Dose: Not Given Tamsulosin HCl (Flomax) 0.4 mg PO [facility] Last Admin: 07/10/18 22:14 Dose: 0.4 mg - Labs Labs: 07/10/18 05:30 07/10/18 05:30 - Head Exam Head Exam: NORMOCEPHALIC - Neck Exam Neck Exam: Normal Inspection - Respiratory Exam Respiratory Exam: Clear to Ausculation Bilateral, NORMAL BREATHING PATTERN - Cardiovascular Exam Cardiovascular Exam: REGULAR RHYTHM - GI/Abdominal Exam GI & Abdominal Exam: Soft, Normal Bowel Sounds Assessment and Plan - Assessment and Plan (Free Text) Assessment: 78 yo male with anemia no active bleeding dc planning when able
--- NOTE | 2018-07-11 11:55 | PN ---
DATE: 07/11/2018 SUBJECTIVE: The patient seen and examined. Interim events noted. The patient remains in regular medical floor with observation for safety. Denies any specific complaint. No chest pain or shortness of breath. PHYSICAL EXAMINATION: GENERA: The patient is in no acute distress. VITAL SIGNS: Stable. HEART: S1 and S2 normal and regular. LUNGS: Good bilateral air exchange. ABDOMEN: Soft, nontender. EXTREMITIES: No edema, no calf swelling, no tenderness. No acute ischemia. ADMISSION NURSE COORDINATOR: Exam is essentially unchanged. The patient has bilateral nephrostomy tube draining urine. DIAGNOSTIC DATA: Available diagnostic data reviewed. ASSESSMENT AND PLAN: Overall, the patient's general medical condition is stable. Plan as ordered. Vinay Henderson MD
[2018-07-11] MEDS: Sodium Chloride 0.9% 1,000 ML IV SCH ×3 (12:06→23:41)
[2018-07-11 12:37] LABS: HEMOGLOBIN 7.6 g/dL (12.0-18.0); MEAN CORPUSCULAR HEMOGLOBIN 30.8 pg (27.0-31.0); MEAN CORPUSCULAR HGB CONC 33.9 g/dL (33.0-37.0); RBC 2.47 Mil/uL (4.40-5.90); RED CELL DISTRIBUTION WIDTH 19.4 % (11.5-14.5); WHITE BLOOD COUNT 2.7 K/uL (4.8-10.8)
[2018-07-11 13:02] LABS: ALB/GLOB RATIO 0.7 (1.0-2.1); ALBUMIN 2.4 g/dL (3.5-5.0); CALCIUM 6.9 mg/dL (8.4-10.2)
--- NOTE | 2018-07-11 14:54 | US ---
Date of service: 07/11/2018 PROCEDURE: Ultrasound of the Kidneys HISTORY: LINO COMPARISON: Abdomen pelvis CT with contrast 05/22/2018 and renal ultrasound 06/30/2018.. TECHNIQUE: Sonogram of the kidneys. FINDINGS: RIGHT KIDNEY: Measures: 9.3 x 4.7 x 4.2 cm. Right renal parenchyma exhibits increased cortical echogenicity suggestive of intrinsic medical renal disease. Limited definition of the corticomedullary borders is noted suggestive of the same. No discrete solid mass is identified. There is no hydronephrosis although nephrostomy catheters identified probable calyceal gas giving prominent anterior echogenic border at the midpole, favored over intrarenal calculus given lack of strong shadowing. No perinephric fluid collection identified. Definitive urolithiasis is not evident. LEFT KIDNEY: Measures: 13.0 x 6.7 x 7.8 cm. Right renal parenchyma exhibits increased cortical echogenicity suggestive of intrinsic medical renal disease. Limited definition of the corticomedullary borders is noted suggestive of the same. No discrete solid mass is identified. There is no hydronephrosis although nephrostomy catheter is again identified in situ with probable calyceal gas giving prominent anterior echogenic border at the midpole, favored over intrarenal calculus given lack of strong shadowing. The finding could reflect combination of gas adjacent to the distal portion of the nephrostomy catheter. No perinephric fluid collection identified. Definitive urolithiasis is not evident. OTHER FINDINGS: None. IMPRESSION: No interval urolithiasis or hydronephrosis bilaterally. Approximate catheters identified with probable caliceal gas associated, simulating moderate-size intrarenal calculi. Intrinsic medical renal disease suggested bilaterally.
--- NOTE | 2018-07-11 14:56 | CP.PCM.PN ---
Subjective - Date & Time of Evaluation Date of Evaluation: 07/11/18 Time of Evaluation: 14:54 - Subjective Subjective: Nephrology Consultation Note Assessment: critical Acute Kidney Injury (N17.9) Diabetic chronic Kidney Disease (E11.22) Hypertensive Chronic Kidney Disease (I12.9) Chronic Kidney Disease (N18.3) Stage 3 with obst uropathy with bladder CA Anemia hypokalemia hypomagnesmia hx of UTI, sepsis Plan No acute need for renal replacement therapy at this time. Hypertension control with meds as ordered. Maintain hemodynamics stable. Avoid hypotension. Patient not on ACEI/ARB due to recent LINO Monitor Input/Output, daily weights and renal function with basic metabolic panel supplement lytes as needed. continue with flomax nephrostomy tube care started IVF and repeat renal sono. Dose meds/antibiotics for improved GFR. Avoid fleets enema. Avoid nephrotoxins/NSAIDs/ iodinated contrast (unless needed emergently) Glycemic control Further work up for as per primary team Thanks for allowing me to participate in care of your patient. Please call if any Qs Dr Gage [place] Office: [phone] Subjective: Noted events overnight. Patients unable to provide any hx. confused. febrile Physical Examination: General Appearance: in no acute respiratory distress, co-operative . ill and debilitated appearing, cachexic Vitals reviewed and noted as below Head; normocephalic. has left forehead bruise ENT: no ulcers no thrush. Tongue is midline. Oropharynx: no rash or ulcers. EYES: Pupils are equal, round and reactive to light accommodation. Eye muscles and extraocular movement intact. Sclera is anicteric. Neck; supple no lymphadenopathy, no thyromegaly or bruit Lungs: Normal respiratory rate/effort. Breath sounds bilateral equal and clearer Heart: Normal rate. s1s2 normal. No rub or gallop. Extremities: no edema. No varicose veins Neurological: Patient is confused Skin: Warm and dry. Normal turgor. No rash. Palpitation: Normal elasticity for age Abdomen: Abdomen is soft. Bowel sounds +. There is no abdominal tenderness, no guarding/rigidity no organomegaly Psych: unable MSK: no joint tenderness or swelling. Digits and nails normal, no deformity : kidney or bladder not palpable. has b/l nephrostomy Labs/imaging reviewed. Past medical history, past surgical history, family history, social history, allergy reviewed and noted as below Family hx: no hx of CKD. Rest non-contributory TSAT 4% ferritin 1620 Rt kidney 8.9 and left 12.6 cm with b/l calculus Objective - Vital Signs/Intake and Output Vital Signs (last 24 hours): Temp Pulse Resp BP Pulse Ox 101.4 F H 106 H 19 133/52 L 97 07/11/18 09:39 07/11/18 08:09 07/11/18 08:09 07/11/18 08:09 07/11/18 08:09 - Medications Medications: Current Medications Acetaminophen (Tylenol 325mg Tab) 650 mg PO Q6 PRN PRN Reason: Fever >100.4 F Last Admin: 07/11/18 08:39 Dose: 650 mg Alprazolam (Xanax) 0.25 mg PO Q6 PRN PRN Reason: Anxiety Stop: 07/15/18 08:27 Last Admin: 07/10/18 22:13 Dose: 0.25 mg Bupropion HCl (Wellbutrin) 75 mg PO DAILY [facility] Last Admin: 07/11/18 08:41 Dose: 75 mg Dextrose (Dextrose 50% Inj) 0 ml IV STAT PRN; Protocol PRN Reason: Hypoglycemia Protocol Dextrose (Glutose 15) 0 gm PO ONCE PRN; Protocol PRN Reason: Hypoglycemia Protocol Famotidine (Pepcid) 20 mg PO BID [facility] Last Admin: 07/11/18 08:40 Dose: 20 mg Sodium Chloride (Sodium Chloride 0.9%) 1,000 mls @ 100 mls/hr IV .Q10H [facility] Stop: 07/13/18 11:31 Last Admin: 07/11/18 12:06 Dose: 100 mls/hr Lactulose (Enulose) 20 gm PO DAILY PRN PRN Reason: Constipation Last Admin: 07/09/18 09:14 Dose: 20 gm Lorazepam (Ativan) 0.5 mg IVP Q8 PRN PRN Reason: Agitation Last Admin: 07/10/18 04:56 Dose: 0.5 mg Ondansetron HCl (Zofran Inj) 4 mg IVP Q6 PRN PRN Reason: Nausea/Vomiting Last Admin: 07/07/18 09:47 Dose: 4 mg Oxycodone HCl (Oxycodone Immediate Release Tab) 10 mg PO Q4 PRN PRN Reason: Pain, severe (8-10) Last Admin: 07/09/18 04:14 Dose: 10 mg Oxycodone HCl (Oxycontin Extended Release Tab) 20 mg PO Q12 [facility] Last Admin: 07/11/18 08:40 Dose: 20 mg Senna/Docusate Sodium (Senokot S 50 Mg-8.6 Mg) 1 tab PO HS [facility] Last Admin: 07/10/18 22:20 Dose: Not Given Tamsulosin HCl (Flomax) 0.4 mg PO HS [facility] Last Admin: 07/10/18 22:14 Dose: 0.4 mg - Labs Labs: 07/11/18 12:32 07/11/18 12:32
--- NOTE | 2018-07-11 17:20 | RAD ---
Date of service: 07/11/2018 HISTORY: fever COMPARISON: Chest radiograph dated 06/29/2018. FINDINGS: LUNGS: No active pulmonary disease. PLEURA: No significant pleural effusion identified, no pneumothorax apparent. CARDIOVASCULAR: Aortic atherosclerotic calcifications. Cardiomediastinal silhouette within normal limits. OSSEOUS STRUCTURES: Diffuse osseous sclerosis. Unchanged.. VISUALIZED UPPER ABDOMEN: Upper quadrant surgical clips. OTHER FINDINGS: Right internal jugular access chest port, unchanged. IMPRESSION: No active disease.
[2018-07-11] MEDS: Docusate-Senna 50 mg-8.6 mg Tab PO SCH (21:30)
--- NOTE | 2018-07-11 22:41 | CP.PCM.PN ---
Subjective - Date & Time of Evaluation Date of Evaluation: 07/11/18 Time of Evaluation: 19:30 - Subjective Subjective: Has back pain, fever noted. Objective - Vital Signs/Intake and Output Vital Signs (last 24 hours): Temp Pulse Resp BP Pulse Ox 97.1 F L 73 18 150/68 94 L 07/11/18 17:00 07/11/18 17:00 07/11/18 17:00 07/11/18 17:00 07/11/18 17:00 Intake and Output: 07/11/18 07/12/18 18:59 06:59 Output Total 850 Balance -850 - Medications Medications: Current Medications Acetaminophen (Tylenol 325mg Tab) 650 mg PO Q6 PRN PRN Reason: Fever >100.4 F Last Admin: 07/11/18 08:39 Dose: 650 mg Alprazolam (Xanax) 0.25 mg PO Q6 PRN PRN Reason: Anxiety Stop: 07/15/18 08:27 Last Admin: 07/10/18 22:13 Dose: 0.25 mg Bupropion HCl (Wellbutrin) 75 mg PO DAILY [facility] Last Admin: 07/11/18 08:41 Dose: 75 mg Dextrose (Dextrose 50% Inj) 0 ml IV STAT PRN; Protocol PRN Reason: Hypoglycemia Protocol Dextrose (Glutose 15) 0 gm PO ONCE PRN; Protocol PRN Reason: Hypoglycemia Protocol Famotidine (Pepcid) 20 mg PO BID [facility] Last Admin: 07/11/18 17:06 Dose: 20 mg Sodium Chloride (Sodium Chloride 0.9%) 1,000 mls @ 100 mls/hr IV .Q10H [facility] Stop: 07/13/18 11:31 Last Admin: 07/11/18 21:30 Dose: Not Given Lactulose (Enulose) 20 gm PO DAILY PRN PRN Reason: Constipation Last Admin: 07/09/18 09:14 Dose: 20 gm Lorazepam (Ativan) 0.5 mg IVP Q8 PRN PRN Reason: Agitation Last Admin: 07/10/18 04:56 Dose: 0.5 mg Ondansetron HCl (Zofran Inj) 4 mg IVP Q6 PRN PRN Reason: Nausea/Vomiting Last Admin: 07/07/18 09:47 Dose: 4 mg Oxycodone HCl (Oxycodone Immediate Release Tab) 10 mg PO Q4 PRN PRN Reason: Pain, severe (8-10) Last Admin: 07/09/18 04:14 Dose: 10 mg Oxycodone HCl (Oxycontin Extended Release Tab) 20 mg PO Q12 [facility] Last Admin: 07/11/18 21:29 Dose: 20 mg Potassium Chloride (Potassium Chloride Oral Soln) 60 meq PO DAILY [facility] Senna/Docusate Sodium (Senokot S 50 Mg-8.6 Mg) 1 tab PO HS [facility] Last Admin: 07/11/18 21:30 Dose: 1 tab Tamsulosin HCl (Flomax) 0.4 mg PO HS [facility] Last Admin: 07/11/18 21:30 Dose: 0.4 mg - Labs Labs: 07/11/18 12:32 07/11/18 12:32 - Head Exam Head Exam: ATRAUMATIC - Eye Exam Eye Exam: Normal appearance - ENT Exam ENT Exam: Mucous Membranes Dry - Respiratory Exam Respiratory Exam: NORMAL BREATHING PATTERN - Cardiovascular Exam Cardiovascular Exam: +S1, +S2 - GI/Abdominal Exam GI & Abdominal Exam: Normal Bowel Sounds Assessment and Plan (1) Anemia Assessment & Plan: chronic disease transfuse if hgb < 8 in AM Status: Acute (2) Bladder cancer Assessment & Plan: stage IV bone mets has not had chemotherapy in several months s/p palliative radiotherapy deferred hospice Status: Chronic
[2018-07-12 06:42] LABS: HEMOGLOBIN 7.6 g/dL (12.0-18.0); MEAN CELL VOLUME 91.8 fl (80.0-94.0); MEAN CORPUSCULAR HEMOGLOBIN 30.5 pg (27.0-31.0); MEAN CORPUSCULAR HGB CONC 33.2 g/dL (33.0-37.0); RBC 2.5 Mil/uL (4.40-5.90); RED CELL DISTRIBUTION WIDTH 19.1 % (11.5-14.5); WHITE BLOOD COUNT 3.2 K/uL (4.8-10.8)
[2018-07-12 06:49] LABS: CALCIUM 6.7 mg/dL (8.4-10.2)
--- NOTE | 2018-07-12 07:42 | CP.PCM.PN ---
Subjective - Date & Time of Evaluation Date of Evaluation: 07/12/18 Time of Evaluation: 07:42 - Subjective Subjective: patient seen and examined today with Dr Henderson, no overnight events, no active complaints. Afebrile, VSS Objective - Vital Signs/Intake and Output Vital Signs (last 24 hours): Temp Pulse Resp BP Pulse Ox 98.2 F 100 H 20 112/69 95 07/12/18 00:37 07/12/18 00:37 07/12/18 00:37 07/12/18 00:37 07/12/18 00:37 - Medications Medications: Current Medications Acetaminophen (Tylenol 325mg Tab) 650 mg PO Q6 PRN PRN Reason: Fever >100.4 F Last Admin: 07/11/18 08:39 Dose: 650 mg Alprazolam (Xanax) 0.25 mg PO Q6 PRN PRN Reason: Anxiety Stop: 07/15/18 08:27 Last Admin: 07/10/18 22:13 Dose: 0.25 mg Bupropion HCl (Wellbutrin) 75 mg PO DAILY [facility] Last Admin: 07/11/18 08:41 Dose: 75 mg Dextrose (Dextrose 50% Inj) 0 ml IV STAT PRN; Protocol PRN Reason: Hypoglycemia Protocol Dextrose (Glutose 15) 0 gm PO ONCE PRN; Protocol PRN Reason: Hypoglycemia Protocol Famotidine (Pepcid) 20 mg PO BID [facility] Last Admin: 07/11/18 17:06 Dose: 20 mg Sodium Chloride (Sodium Chloride 0.9%) 1,000 mls @ 100 mls/hr IV .Q10H [facility] Stop: 07/13/18 11:31 Last Admin: 07/11/18 23:41 Dose: 100 mls/hr Lactulose (Enulose) 20 gm PO DAILY PRN PRN Reason: Constipation Last Admin: 07/09/18 09:14 Dose: 20 gm Lorazepam (Ativan) 0.5 mg IVP Q8 PRN PRN Reason: Agitation Last Admin: 07/10/18 04:56 Dose: 0.5 mg Ondansetron HCl (Zofran Inj) 4 mg IVP Q6 PRN PRN Reason: Nausea/Vomiting Last Admin: 07/07/18 09:47 Dose: 4 mg Oxycodone HCl (Oxycodone Immediate Release Tab) 10 mg PO Q4 PRN PRN Reason: Pain, severe (8-10) Last Admin: 07/09/18 04:14 Dose: 10 mg Oxycodone HCl (Oxycontin Extended Release Tab) 20 mg PO Q12 [facility] Last Admin: 07/11/18 21:29 Dose: 20 mg Potassium Chloride (Potassium Chloride Oral Soln) 60 meq PO DAILY [facility] Senna/Docusate Sodium (Senokot S 50 Mg-8.6 Mg) 1 tab PO HS [facility] Last Admin: 07/11/18 21:30 Dose: 1 tab Tamsulosin HCl (Flomax) 0.4 mg PO HS [facility] Last Admin: 07/11/18 21:30 Dose: 0.4 mg - Labs Labs: 07/12/18 06:00 07/12/18 06:00 - Constitutional Appears: No Acute Distress, Cachectic, Chronically Ill - Respiratory Exam Respiratory Exam: Clear to Ausculation Bilateral - Cardiovascular Exam Cardiovascular Exam: REGULAR RHYTHM, +S1, +S2 - GI/Abdominal Exam GI & Abdominal Exam: Soft. 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 Homeless. Awaiting for placement. S/P fall. Plan: - Pain management - s/p fall, continue 1:1 - ID consult, recommeds appreciated - Hematology consult, recommeds appreciated. - Nephro consulted - referral, awaiting for placement - PT/OT eval - Resume home medications - Rest of the plan as ordered
[2018-07-12] MEDS: Sodium Chloride 0.9% 1,000 ML IV SCH ×3 (09:17→23:37)
[2018-07-12] MEDS: Potassium Chloride 20 mEq/15 ml LIQ UD PO SCH (09:17)
[2018-07-12] MEDS: oxyCODONE 20 mg ER Tab (oxyCONTIN) PO SCH ×2 (09:24→21:50)
--- NOTE | 2018-07-12 12:46 | CP.PCM.PCO ---
Assessment & Plan - Assessment and Plan (Free Text) Assessment: pt. cont. with fevers, intermittent periods of lethargy, poor po intake cbc results noted, hgb 7.6 D/w , Transfuse 1 unit of prbc today Telephone consent for transfusion obtained with son Jessee; spoke to son over the phone and pt. current condition discussed possibility of hospice d/w son who does not wish to eval at this time notified of above
--- NOTE | 2018-07-12 14:46 | CP.PCM.PN ---
Subjective - Date & Time of Evaluation Date of Evaluation: 07/12/18 Time of Evaluation: 14:46 Objective - Vital Signs/Intake and Output Vital Signs (last 24 hours): Temp Pulse Resp BP Pulse Ox 98.5 F 97 H 20 122/62 94 L 07/12/18 14:26 07/12/18 14:26 07/12/18 14:26 07/12/18 14:26 07/12/18 08:57 Intake and Output: 07/12/18 07/12/18 06:59 18:59 Intake Total 0 Balance 0 - Medications Medications: Current Medications Acetaminophen (Tylenol 325mg Tab) 650 mg PO Q6 PRN PRN Reason: Fever >100.4 F Last Admin: 07/12/18 12:46 Dose: 650 mg Alprazolam (Xanax) 0.25 mg PO Q6 PRN PRN Reason: Anxiety Stop: 07/15/18 08:27 Last Admin: 07/10/18 22:13 Dose: 0.25 mg Bupropion HCl (Wellbutrin) 75 mg PO DAILY [facility] Last Admin: 07/12/18 09:18 Dose: 75 mg Dextrose (Dextrose 50% Inj) 0 ml IV STAT PRN; Protocol PRN Reason: Hypoglycemia Protocol Dextrose (Glutose 15) 0 gm PO ONCE PRN; Protocol PRN Reason: Hypoglycemia Protocol Famotidine (Pepcid) 20 mg PO BID [facility] Last Admin: 07/12/18 09:18 Dose: 20 mg Sodium Chloride (Sodium Chloride 0.9%) 1,000 mls @ 100 mls/hr IV .Q10H [facility] Stop: 07/13/18 11:31 Last Admin: 07/12/18 09:17 Dose: 100 mls/hr Lactulose (Enulose) 20 gm PO DAILY PRN PRN Reason: Constipation Last Admin: 07/09/18 09:14 Dose: 20 gm Lorazepam (Ativan) 0.5 mg IVP Q8 PRN PRN Reason: Agitation Last Admin: 07/10/18 04:56 Dose: 0.5 mg Ondansetron HCl (Zofran Inj) 4 mg IVP Q6 PRN PRN Reason: Nausea/Vomiting Last Admin: 07/07/18 09:47 Dose: 4 mg Oxycodone HCl (Oxycodone Immediate Release Tab) 10 mg PO Q4 PRN PRN Reason: Pain, severe (8-10) Last Admin: 07/09/18 04:14 Dose: 10 mg Oxycodone HCl (Oxycontin Extended Release Tab) 20 mg PO Q12 [facility] Last Admin: 07/12/18 09:24 Dose: 20 mg Potassium Chloride (Potassium Chloride Oral Soln) 60 meq PO DAILY [facility] Last Admin: 07/12/18 09:17 Dose: 60 meq Senna/Docusate Sodium (Senokot S 50 Mg-8.6 Mg) 1 tab PO HS [facility] Last Admin: 07/11/18 21:30 Dose: 1 tab Tamsulosin HCl (Flomax) 0.4 mg PO HS [facility] Last Admin: 07/11/18 21:30 Dose: 0.4 mg - Labs Labs: 07/12/18 06:00 07/12/18 06:00 Assessment and Plan (1) Malignant neoplasm metastatic from bladder Status: Acute (2) Obstructive uropathy Status: Acute
--- NOTE | 2018-07-12 18:02 | CP.PCM.PN ---
Subjective - Date & Time of Evaluation Date of Evaluation: 07/12/18 Time of Evaluation: 17:59 - Subjective Subjective: Nephrology Consultation Note Assessment: critical Acute Kidney Injury (N17.9) Diabetic chronic Kidney Disease (E11.22) Hypertensive Chronic Kidney Disease (I12.9) Chronic Kidney Disease (N18.3) Stage 3 with obst uropathy with bladder CA Anemia hypokalemia hypomagnesmia hx of UTI, sepsis Plan No acute need for renal replacement therapy at this time. cr better today Hypertension control with meds as ordered. Maintain hemodynamics stable. Avoid hypotension. Monitor Input/Output supplement lytes as needed. continue with flomax Physical Examination: General Appearance: in no acute respiratory distress, co-operative . ill and debilitated appearing, cachexic Vitals reviewed and noted as below Head; normocephalic. has left forehead bruise ENT: no ulcers no thrush. Tongue is midline. EYES: Eye muscles and extraocular movement intact. Sclera is anicteric. Neck; supple nno thyromegaly or bruit Lungs: Normal respiratory rate/effort. Breath sounds bilateral equal and clearer Heart: Normal rate. s1s2 normal. No rub or gallop. Extremities: no edema. No varicose veins Neurological: Patient is confused Skin: Warm and dry. Normal turgor. No rash Abdomen: Abdomen is soft. Bowel sounds +. There is no abdominal tenderness, no guarding/rigidity no organomegaly Psych: unable MSK: no joint tenderness or swelling. Objective - Vital Signs/Intake and Output Vital Signs (last 24 hours): Temp Pulse Resp BP Pulse Ox 97.8 F 94 H 18 106/52 L 97 07/12/18 16:30 07/12/18 16:30 07/12/18 16:30 07/12/18 16:30 07/12/18 16:30 Intake and Output: 07/12/18 07/12/18 06:59 18:59 Intake Total 325 Balance 325 - Medications Medications: Current Medications Acetaminophen (Tylenol 325mg Tab) 650 mg PO Q6 PRN PRN Reason: Fever >100.4 F Last Admin: 07/12/18 12:46 Dose: 650 mg Alprazolam (Xanax) 0.25 mg PO Q6 PRN PRN Reason: Anxiety Stop: 07/15/18 08:27 Last Admin: 07/10/18 22:13 Dose: 0.25 mg Bupropion HCl (Wellbutrin) 75 mg PO DAILY [facility] Last Admin: 07/12/18 09:18 Dose: 75 mg Dextrose (Dextrose 50% Inj) 0 ml IV STAT PRN; Protocol PRN Reason: Hypoglycemia Protocol Dextrose (Glutose 15) 0 gm PO ONCE PRN; Protocol PRN Reason: Hypoglycemia Protocol Famotidine (Pepcid) 20 mg PO BID [facility] Last Admin: 07/12/18 16:37 Dose: 20 mg Sodium Chloride (Sodium Chloride 0.9%) 1,000 mls @ 100 mls/hr IV .Q10H [facility] Stop: 07/13/18 11:31 Last Admin: 07/12/18 16:37 Dose: 100 mls/hr Lactulose (Enulose) 20 gm PO DAILY PRN PRN Reason: Constipation Last Admin: 07/09/18 09:14 Dose: 20 gm Lorazepam (Ativan) 0.5 mg IVP Q8 PRN PRN Reason: Agitation Last Admin: 07/10/18 04:56 Dose: 0.5 mg Ondansetron HCl (Zofran Inj) 4 mg IVP Q6 PRN PRN Reason: Nausea/Vomiting Last Admin: 07/07/18 09:47 Dose: 4 mg Oxycodone HCl (Oxycodone Immediate Release Tab) 10 mg PO Q4 PRN PRN Reason: Pain, severe (8-10) Last Admin: 07/09/18 04:14 Dose: 10 mg Oxycodone HCl (Oxycontin Extended Release Tab) 20 mg PO Q12 [facility] Last Admin: 07/12/18 09:24 Dose: 20 mg Potassium Chloride (Potassium Chloride Oral Soln) 60 meq PO DAILY [facility] Last Admin: 07/12/18 09:17 Dose: 60 meq Senna/Docusate Sodium (Senokot S 50 Mg-8.6 Mg) 1 tab PO HS [facility] Last Admin: 07/11/18 21:30 Dose: 1 tab Tamsulosin HCl (Flomax) 0.4 mg PO HS [facility] Last Admin: 07/11/18 21:30 Dose: 0.4 mg - Labs Labs: 07/12/18 06:00 07/12/18 06:00
[2018-07-12 19:04] LABS: SQUAMOUS EPITHIAL < 1 /hpf (0-5); URINE BACTERIA FEW (<OCC); URINE BILIRUBIN NEGATIVE (NEGATIVE); URINE BLOOD MODERATE (NEGATIVE); URINE CLARITY CLOUDY (Clear); URINE COLOR YELLOW (YELLOW); URINE GLUCOSE (UA) NEG (Normal); URINE HYALINE CAST 0-2 /hpf (0-2); URINE LEUKOCYTE ESTERASE LARGE Leu/uL (Negative); URINE PROTEIN 100 mg/dL (NEGATIVE); URINE UROBILINOGEN 0.2-1.0 mg/dL (0.2-1.0)
[2018-07-12] MEDS: Docusate-Senna 50 mg-8.6 mg Tab PO SCH (21:53)
[2018-07-13 07:02] LABS: CALCIUM 7.5 mg/dL (8.4-10.2); MEAN CELL VOLUME 91.5 fl (80.0-94.0); MEAN CORPUSCULAR HGB CONC 33.9 g/dL (33.0-37.0); RBC 2.89 Mil/uL (4.40-5.90); RED CELL DISTRIBUTION WIDTH 19.2 % (11.5-14.5); WHITE BLOOD COUNT 4.3 K/uL (4.8-10.8)
[2018-07-13] MEDS: oxyCODONE 20 mg ER Tab (oxyCONTIN) PO SCH ×2 (08:36→21:12)
--- NOTE | 2018-07-13 09:34 | CP.PCM.PN ---
Subjective - Date & Time of Evaluation Date of Evaluation: 07/13/18 Time of Evaluation: 09:34 - Subjective Subjective: ID Note- Pt. seen and examined today. was febrile yesterday and prelim blood cx gram pos bacilli . advised to give vanco 750 mg IV x once yesterday. today so far afebrile. Objective - Vital Signs/Intake and Output Vital Signs (last 24 hours): Temp Pulse Resp BP Pulse Ox 98.2 F 101 H 19 155/65 H 98 07/13/18 07:57 07/13/18 07:57 07/13/18 07:57 07/13/18 07:57 07/13/18 07:57 - Medications Medications: Current Medications Acetaminophen (Tylenol 325mg Tab) 650 mg PO Q6 PRN PRN Reason: Fever >100.4 F Last Admin: 07/12/18 12:46 Dose: 650 mg Alprazolam (Xanax) 0.25 mg PO Q6 PRN PRN Reason: Anxiety Stop: 07/15/18 08:27 Last Admin: 07/10/18 22:13 Dose: 0.25 mg Bupropion HCl (Wellbutrin) 75 mg PO DAILY [facility] Last Admin: 07/12/18 09:18 Dose: 75 mg Dextrose (Dextrose 50% Inj) 0 ml IV STAT PRN; Protocol PRN Reason: Hypoglycemia Protocol Dextrose (Glutose 15) 0 gm PO ONCE PRN; Protocol PRN Reason: Hypoglycemia Protocol Famotidine (Pepcid) 20 mg PO BID [facility] Last Admin: 07/12/18 16:37 Dose: 20 mg Sodium Chloride (Sodium Chloride 0.9%) 1,000 mls @ 100 mls/hr IV .Q10H [facility] Stop: 07/13/18 11:31 Last Admin: 07/12/18 23:37 Dose: 100 mls/hr Lactulose (Enulose) 20 gm PO DAILY PRN PRN Reason: Constipation Last Admin: 07/09/18 09:14 Dose: 20 gm Lorazepam (Ativan) 0.5 mg IVP Q8 PRN PRN Reason: Agitation Last Admin: 07/10/18 04:56 Dose: 0.5 mg Ondansetron HCl (Zofran Inj) 4 mg IVP Q6 PRN PRN Reason: Nausea/Vomiting Last Admin: 07/07/18 09:47 Dose: 4 mg Oxycodone HCl (Oxycodone Immediate Release Tab) 10 mg PO Q4 PRN PRN Reason: Pain, severe (8-10) Last Admin: 07/09/18 04:14 Dose: 10 mg Oxycodone HCl (Oxycontin Extended Release Tab) 20 mg PO Q12 [facility] Last Admin: 07/13/18 08:36 Dose: 20 mg Potassium Chloride (Potassium Chloride Oral Soln) 60 meq PO DAILY [facility] Last Admin: 07/12/18 09:17 Dose: 60 meq Senna/Docusate Sodium (Senokot S 50 Mg-8.6 Mg) 1 tab PO HS [facility] Last Admin: 07/12/18 21:53 Dose: 1 tab Tamsulosin HCl (Flomax) 0.4 mg PO [facility] Last Admin: 07/12/18 21:53 Dose: 0.4 mg - Labs Labs: - Additional Findings Additional findings: - Constitutional Appears: No Acute Distress - Head Exam Head Exam: ATRAUMATIC - Eye Exam Eye Exam: EOMI, PERRL - ENT Exam ENT Exam: Normal Oropharynx - Neck Exam Neck exam: Positive for: Full Rom - Respiratory Exam Respiratory Exam: Clear to Auscultation Bilateral, NORMAL BREATHING PATTERN - Cardiovascular Exam Cardiovascular Exam: RRR, +S1, +S2 - GI/Abdominal Exam GI & Abdominal Exam: Normal Bowel Sounds, Soft Additional comments: NT, ND - Extremities Exam Extremities exam: Positive for: normal inspection - Back Exam Additional comments: b/l nephrostomy tubes in place, no surrounding erythema urine in bag clear b/l - Neurological Exam Neurological exam: Alert, Oriented x 2 Laboratory Results - last 72 hr 07/09/18 07/09/18 07/09/18 05:46 11:20 15:42 WBC RBC Hgb Hct MCV MCH MCHC RDW Plt Count Sodium Potassium Chloride Carbon Dioxide Anion Gap BUN Creatinine Est GFR ( Amer) Est GFR (Non-Af Amer) POC Glucose (mg/dL) 125 H 122 H 100 Random Glucose Calcium Phosphorus Magnesium Total Bilirubin AST ALT Alkaline Phosphatase Total Protein Albumin Globulin Albumin/Globulin Ratio Urine Color Urine Clarity Urine pH Ur Specific [place] Urine Protein Urine Glucose (UA) Urine Ketones Urine Blood Urine Nitrate Urine Bilirubin Urine Urobilinogen Ur Leukocyte Esterase Urine RBC (Auto) Urine Microscopic WBC Ur Squamous Epith Cells Urine Bacteria Hyaline Casts Influenza Typ A,B (EIA) Blood Type Antibody Screen Crossmatch BBK History Checked 07/09/18 07/09/18 07/10/18 17:59 21:49 05:12 WBC RBC Hgb Hct MCV MCH MCHC RDW Plt Count Sodium Potassium Chloride Carbon Dioxide Anion Gap BUN Creatinine Est GFR ( Amer) Est GFR (Non-Af Amer) POC Glucose (mg/dL) 170 H 119 H 102 Random Glucose Calcium Phosphorus Magnesium Total Bilirubin AST ALT Alkaline Phosphatase Total Protein Albumin Globulin Albumin/Globulin Ratio Urine Color Urine Clarity Urine pH Ur Specific [place] Urine Protein Urine Glucose (UA) Urine Ketones Urine Blood Urine Nitrate Urine Bilirubin Urine Urobilinogen Ur Leukocyte Esterase Urine RBC (Auto) Urine Microscopic WBC Ur Squamous Epith Cells Urine Bacteria Hyaline Casts Influenza Typ A,B (EIA) Blood Type Antibody Screen Crossmatch BBK History Checked 07/10/18 07/10/18 07/10/18 11:47 16:01 21:26 WBC RBC Hgb Hct MCV MCH MCHC RDW Plt Count Sodium Potassium Chloride Carbon Dioxide Anion Gap BUN Creatinine Est GFR ( Amer) Est GFR (Non-Af Amer) POC Glucose (mg/dL) 99 94 90 Random Glucose Calcium Phosphorus Magnesium Total Bilirubin AST ALT Alkaline Phosphatase Total Protein Albumin Globulin Albumin/Globulin Ratio Urine Color Urine Clarity Urine pH Ur Specific [place] Urine Protein Urine Glucose (UA) Urine Ketones Urine Blood Urine Nitrate Urine Bilirubin Urine Urobilinogen Ur Leukocyte Esterase Urine RBC (Auto) Urine Microscopic WBC Ur Squamous Epith Cells Urine Bacteria Hyaline Casts Influenza Typ A,B (EIA) Blood Type Antibody Screen Crossmatch BBK History Checked 07/11/18 07/11/18 07/11/18 05:26 11:34 12:32 WBC 2.7 L RBC 2.47 L Hgb 7.6 L Hct 22.5 L MCV 91.0 MCH 30.8 MCHC 33.9 RDW 19.4 H Plt Count 94 L Sodium Potassium Chloride Carbon Dioxide Anion Gap BUN Creatinine Est GFR ( Amer) Est GFR (Non-Af Amer) POC Glucose (mg/dL) 89 126 H Random Glucose Calcium Phosphorus Magnesium Total Bilirubin AST ALT Alkaline Phosphatase Total Protein Albumin Globulin Albumin/Globulin Ratio Urine Color Urine Clarity Urine pH Ur Specific [place] Urine Protein Urine Glucose (UA) Urine Ketones Urine Blood Urine Nitrate Urine Bilirubin Urine Urobilinogen Ur Leukocyte Esterase Urine RBC (Auto) Urine Microscopic WBC Ur Squamous Epith Cells Urine Bacteria Hyaline Casts Influenza Typ A,B (EIA) Blood Type Antibody Screen Crossmatch BBK History Checked 07/11/18 07/11/18 07/11/18 12:32 16:50 21:15 WBC RBC Hgb Hct MCV MCH MCHC RDW Plt Count Sodium 145 Potassium 3.1 L Chloride 115 H Carbon Dioxide 21 L Anion Gap 12 BUN 33 H Creatinine 1.9 H Est GFR ( Amer) 41 Est GFR (Non-Af Amer) 34 POC Glucose (mg/dL) 117 H 170 H Random Glucose 107 Calcium 6.9 L Phosphorus 3.3 Magnesium 1.3 L Total Bilirubin 0.8 AST 36 ALT 25 Alkaline Phosphatase 822 H Total Protein 5.8 L Albumin 2.4 L Globulin 3.4 Albumin/Globulin Ratio 0.7 L Urine Color Urine Clarity Urine pH Ur Specific [place] Urine Protein Urine Glucose (UA) Urine Ketones Urine Blood Urine Nitrate Urine Bilirubin Urine Urobilinogen Ur Leukocyte Esterase Urine RBC (Auto) Urine Microscopic WBC Ur Squamous Epith Cells Urine Bacteria Hyaline Casts Influenza Typ A,B (EIA) Blood Type Antibody Screen Crossmatch BBK History Checked 07/11/18 07/12/18 07/12/18 21:16 05:18 06:00 WBC 3.2 L RBC 2.50 L Hgb 7.6 L Hct 22.9 L MCV 91.8 MCH 30.5 MCHC 33.2 RDW 19.1 H Plt Count 93 L Sodium Potassium Chloride Carbon Dioxide Anion Gap BUN Creatinine Est GFR ( Amer) Est GFR (Non-Af Amer) POC Glucose (mg/dL) 126 H Random Glucose Calcium Phosphorus Magnesium Total Bilirubin AST ALT Alkaline Phosphatase Total Protein Albumin Globulin Albumin/Globulin Ratio Urine Color Urine Clarity Urine pH Ur Specific [place] Urine Protein Urine Glucose (UA) Urine Ketones Urine Blood Urine Nitrate Urine Bilirubin Urine Urobilinogen Ur Leukocyte Esterase Urine RBC (Auto) Urine Microscopic WBC Ur Squamous Epith Cells Urine Bacteria Hyaline Casts Influenza Typ A,B (EIA) Negative for flu a/b Blood Type Antibody Screen Crossmatch BBK History Checked 07/12/18 07/12/18 07/12/18 06:00 11:28 11:39 WBC RBC Hgb Hct MCV MCH MCHC RDW Plt Count Sodium 147 Potassium 2.9 L Chloride 121 H Carbon Dioxide 20 L Anion Gap 9 L BUN 29 H Creatinine 1.7 H Est GFR ( Amer) 47 Est GFR (Non-Af Amer) 39 POC Glucose (mg/dL) 129 H Random Glucose 113 H Calcium 6.7 L Phosphorus Magnesium Total Bilirubin AST ALT Alkaline Phosphatase Total Protein Albumin Globulin Albumin/Globulin Ratio Urine Color Urine Clarity Urine pH Ur Specific [place] Urine Protein Urine Glucose (UA) Urine Ketones Urine Blood Urine Nitrate Urine Bilirubin Urine Urobilinogen Ur Leukocyte Esterase Urine RBC (Auto) Urine Microscopic WBC Ur Squamous Epith Cells Urine Bacteria Hyaline Casts Influenza Typ A,B (EIA) Blood Type B POSITIVE Antibody Screen Negative Crossmatch See Detail BBK History Checked Patient has bt 07/12/18 07/12/18 07/12/18 15:41 18:44 21:29 WBC RBC Hgb Hct MCV MCH MCHC RDW Plt Count Sodium Potassium Chloride Carbon Dioxide Anion Gap BUN Creatinine Est GFR ( Amer) Est GFR (Non-Af Amer) POC Glucose (mg/dL) 103 94 Random Glucose Calcium Phosphorus Magnesium Total Bilirubin AST ALT Alkaline Phosphatase Total Protein Albumin Globulin Albumin/Globulin Ratio Urine Color Yellow Urine Clarity Cloudy Urine pH 6.0 Ur Specific [place] 1.016 Urine Protein 100 Urine Glucose (UA) Neg Urine Ketones Negative Urine Blood Moderate Urine Nitrate Positive H Urine Bilirubin Negative Urine Urobilinogen 0.2-1.0 Ur Leukocyte Esterase Large Urine RBC (Auto) 13 H Urine Microscopic WBC 120 H Ur Squamous Epith Cells < 1 Urine Bacteria Few H Hyaline Casts 0-2 Influenza Typ A,B (EIA) Blood Type Antibody Screen Crossmatch BBK History Checked 07/13/18 07/13/18 07/13/18 06:20 06:20 06:55 WBC 4.3 L RBC 2.89 L Hgb 9.0 L Hct 26.5 L MCV 91.5 MCH 31.0 MCHC 33.9 RDW 19.2 H Plt Count 106 L Sodium 150 H Potassium 2.9 L Chloride 124 H Carbon Dioxide 20 L Anion Gap 9 L BUN 27 H Creatinine 1.6 H Est GFR ( Amer) 51 Est GFR (Non-Af Amer) 42 POC Glucose (mg/dL) 91 Random Glucose 102 Calcium 7.5 L Phosphorus Magnesium Total Bilirubin AST ALT Alkaline Phosphatase Total Protein Albumin Globulin Albumin/Globulin Ratio Urine Color Urine Clarity Urine pH Ur Specific [place] Urine Protein Urine Glucose (UA) Urine Ketones Urine Blood Urine Nitrate Urine Bilirubin Urine Urobilinogen Ur Leukocyte Esterase Urine RBC (Auto) Urine Microscopic WBC Ur Squamous Epith Cells Urine Bacteria Hyaline Casts Influenza Typ A,B (EIA) Blood Type Antibody Screen Crossmatch BBK History Checked Microbiology 07/11/18 12:32 Blood Blood Culture - Preliminary Gram Negative Myron 07/11/18 12:32 Blood Gram Stain - Final 07/11/18 12:32 Blood Gram Stain - Final Assessment and Plan (1) Malignant neoplasm metastatic from bladder Status: Acute (2) Obstructive uropathy Status: Acute - Assessment and Plan (Free Text) Assessment: A/P- 78 year old male with stage 4 bladder cancer with bony mets and obstructive uropathy s/p TURBT and b/l nephrostomy tubes since 11/2017 s/p multiple hospitalizations and multiorganisms UTIs all treated in the past admissions s/p twice nephrostomy tube changes with most recent one in 06/08/2018 . New onet fevers yesterday today afebrile so far no leukocytosis actually leukopenic prelim blood cx- one of the 2 bottles gram pos bacilli second bottle-neg last UA- + LE but negative for any nitrates urine cx- negative x 2 this most recent admission prior admission urine cx- VRE ( was treated with linezolid as per other ID doc seeing pt. that admission). blood cx- neg x 2 last admission as well CXR- negative as per report. renal US- no hydro as per report. flu test -neg plan- await ID and sens of the prelim GPB blood cx. s/p one dose vanco yesterday so far. check Ua and urine cx. check 2 more blood cx, make sure one is from the port.
--- NOTE | 2018-07-13 10:47 | PN ---
DATE: 07/13/2018 SUBJECTIVE: The patient is seen and examined. Interim events noted. The patient remains in regular medical floor with one-to-one observation. Consults noted and appreciated. Infectious disease and hematology/oncology interventions noted and appreciated. The patient notes transfused 1 unit of blood yesterday. The patient is sleeping, arousable, complains of lot of pain controlled with current pain medications. No new complaints of chest pain or shortness of breath. PHYSICAL EXAMINATION: GENERAL: The patient is a chronically sick-looking elderly male, in no acute distress. VITAL SIGNS: Currently stable. The patient is afebrile. HEART: S1 and S2, normal and regular. LUNGS: Good bilateral air exchange. ABDOMEN: Soft and nontender. GENITOURINARY: The patient has nephrostomy tube in good position and functioning. EXTREMITIES: No calf swelling. No tenderness. No acute ischemia. CENTRAL NERVOUS SYSTEM: Essentially unchanged. DIAGNOSTIC DATA: Available diagnostic data reviewed. ASSESSMENT AND PLAN: Overall, the patient's general medical condition is also hemodynamically stable. alf function and prognosis remain poor. Family has refused hospice evaluation once again. Overall, the patient is stable. Plan as ordered. Vinay Henderson MD
[2018-07-13] MEDS: Sodium Chloride 0.9% 1,000 ML IV SCH (11:35)
[2018-07-13] MEDS: Potassium Chloride 20 mEq/15 ml LIQ UD PO SCH ×2 (11:38→14:20)
[2018-07-13] MEDS ORDERED: Potassium Chloride 20 mEq 100 ML IVPB ONE (14:10)
[2018-07-13] MEDS: oxyCODONE 10 mg Immediate Release Tab PO PRN (17:00)
[2018-07-13] MEDS: Potassium Chl 20mEq & D5W 1,000 ML IV SCH (17:01)
--- NOTE | 2018-07-13 20:09 | CP.PCM.PN ---
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 monitor UOP lytes reviewed, recommend free water gtt as hypernatremia hypokalemia replace and recheck Hypertension control with meds as ordered. Maintain hemodynamics stable. Avoid hypotension. = Physical Examination: General Appearance: in no acute respiratory distress, co-operative . ill and debilitated appearing, cachexic Vitals reviewed and noted as below Head; normocephalic. has left forehead bruise ENT: no ulcers no thrush. Tongue is midline. EYES: Eye muscles and extraocular movement intact. Sclera is anicteric. Neck; supple nno thyromegaly or bruit Lungs: Normal respiratory rate/effort. Breath sounds bilateral equal and clearer Heart: Normal rate. s1s2 normal. No rub or gallop. Extremities: no edema. No varicose veins Neurological: Patient is confused Skin: Warm and dry. Normal turgor. No rash Abdomen: Abdomen is soft. Bowel sounds +. There is no abdominal tenderness, no guarding/rigidity no organomegaly Psych: unable Objective - Vital Signs/Intake and Output Vital Signs (last 24 hours): Temp Pulse Resp BP Pulse Ox 99.6 F 102 H 20 153/68 H 98 07/13/18 16:29 07/13/18 16:29 07/13/18 16:29 07/13/18 16:29 07/13/18 16:29 - Medications Medications: Current Medications Acetaminophen (Tylenol 325mg Tab) 650 mg PO Q6 PRN PRN Reason: Fever >100.4 F Last Admin: 07/12/18 12:46 Dose: 650 mg Alprazolam (Xanax) 0.25 mg PO Q6 PRN PRN Reason: Anxiety Stop: 07/15/18 08:27 Last Admin: 07/10/18 22:13 Dose: 0.25 mg Bupropion HCl (Wellbutrin) 75 mg PO DAILY [facility] Last Admin: 07/13/18 14:21 Dose: Not Given Dextrose (Dextrose 50% Inj) 0 ml IV STAT PRN; Protocol PRN Reason: Hypoglycemia Protocol Dextrose (Glutose 15) 0 gm PO ONCE PRN; Protocol PRN Reason: Hypoglycemia Protocol Potassium Chloride/Dextrose (Potassium Chl 20 Meq In D5w) 1,000 mls @ 80 mls/hr IV .[id number] [facility] Last Admin: 07/13/18 17:01 Dose: 80 mls/hr Lactulose (Enulose) 20 gm PO DAILY PRN PRN Reason: Constipation Last Admin: 07/09/18 09:14 Dose: 20 gm Lorazepam (Ativan) 0.5 mg IVP Q8 PRN PRN Reason: Agitation Last Admin: 07/10/18 04:56 Dose: 0.5 mg Ondansetron HCl (Zofran Inj) 4 mg IVP Q6 PRN PRN Reason: Nausea/Vomiting Last Admin: 07/07/18 09:47 Dose: 4 mg Oxycodone HCl (Oxycodone Immediate Release Tab) 10 mg PO Q4 PRN PRN Reason: Pain, severe (8-10) Last Admin: 07/13/18 17:00 Dose: 10 mg Oxycodone HCl (Oxycontin Extended Release Tab) 20 mg PO Q12 [facility] Last Admin: 07/13/18 08:36 Dose: 20 mg Pantoprazole Sodium (Protonix Inj) 40 mg IVP DAILY [facility] Potassium Chloride (Potassium Chloride Oral Soln) 60 meq PO DAILY [facility] Last Admin: 07/13/18 14:20 Dose: Not Given Senna/Docusate Sodium (Senokot S 50 Mg-8.6 Mg) 1 tab PO HS [facility] Last Admin: 07/12/18 21:53 Dose: 1 tab Tamsulosin HCl (Flomax) 0.4 mg PO HS [facility] Last Admin: 07/12/18 21:53 Dose: 0.4 mg - Labs Labs: 07/13/18 06:20 07/13/18 06:20
[2018-07-13] MEDS: Docusate-Senna 50 mg-8.6 mg Tab PO SCH ×2 (21:17→22:05)
[2018-07-14] MEDS: Potassium Chl 20mEq & D5W 1,000 ML IV SCH (02:45)
[2018-07-14] MEDS: oxyCODONE 20 mg ER Tab (oxyCONTIN) PO SCH ×2 (09:03→22:18)
[2018-07-14] MEDS: Potassium Chloride 20 mEq/15 ml LIQ UD PO SCH (09:04)
[2018-07-14 09:36] LABS: HEMOGLOBIN 8.4 g/dL (12.0-18.0); MEAN CELL VOLUME 91.3 fl (80.0-94.0); MEAN CORPUSCULAR HGB CONC 33.9 g/dL (33.0-37.0); RBC 2.73 Mil/uL (4.40-5.90); RED CELL DISTRIBUTION WIDTH 19.5 % (11.5-14.5); WHITE BLOOD COUNT 4.1 K/uL (4.8-10.8)
[2018-07-14 09:54] LABS: ALB/GLOB RATIO 0.7 (1.0-2.1); ALBUMIN 2.5 g/dL (3.5-5.0); CALCIUM 7.2 mg/dL (8.4-10.2)
--- NOTE | 2018-07-14 12:58 | PN ---
DATE: 07/14/2018 SUBJECTIVE: The patient seen and examined. Interim events noted. Consults noted and appreciated. Infectious Disease and Nephrology followup and interventions noted and appreciated. The patient remains in regular medical floor in isolation. Feels okay. Denies any chest pain. No shortness of breath. PHYSICAL EXAMINATION: GENERAL: The patient is in no acute distress. VITAL SIGNS: Stable. HEART: S1 and S2, normal and regular. LUNGS: Good bilateral air exchange. ABDOMEN: Soft, nontender. No sign of acute abdomen. No guarding. No rigidity. No rebound. Bowel sounds are plus and normal. GENITOURINARY: The patient has nephrostomy tube in good position and draining. EXTREMITIES: No edema. No calf swelling. No tenderness. No acute ischemia. CENTRAL NERVOUS SYSTEM: Essentially unchanged. DIAGNOSTIC DATA: Available diagnostic data reviewed. Blood culture is positive for gram-negative bacilli. ASSESSMENT AND PLAN: The patient did receive antibiotics one dose. Pending and sensitivity. The patient is also being followed up by Infectious Disease. Plan as ordered. Vinay Henderson MD
[2018-07-14] MEDS ORDERED: Potassium Chloride 20 mEq 100 ML IVPB ONE (13:06)
--- NOTE | 2018-07-14 14:44 | CP.PCM.PN ---
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 monitor UOP lytes reviewed, continue with hypotonic fluids as ordered. hypokalemia being replaced Hypertension control with meds as ordered. Maintain hemodynamics stable. Avoid hypotension. started Mag 400 mg bid ROS: pt unable to provide much. family bedside. looks better Physical Examination: General Appearance: in no acute respiratory distress, co-operative . ill and debilitated appearing, cachexic Vitals reviewed and noted as below Head; normocephalic. has left forehead bruise ENT: no ulcers no thrush. Tongue is midline. EYES: Eye muscles and extraocular movement intact. Sclera is anicteric. Neck; supple nno thyromegaly or bruit Lungs: Normal respiratory rate/effort. Breath sounds bilateral equal and clearer Heart: Normal rate. s1s2 normal. No rub or gallop. Extremities: no edema. No varicose veins Neurological: Patient is alert and more oriented. Skin: Warm and dry. Normal turgor. No rash Abdomen: Abdomen is soft. Bowel sounds +. There is no abdominal tenderness, no guarding/rigidity no organomegaly Psych: unable : has b/l nephrostomy tubes Objective - Vital Signs/Intake and Output Vital Signs (last 24 hours): Temp Pulse Resp BP Pulse Ox 98.5 F 85 19 115/52 L 96 07/14/18 08:06 07/14/18 08:06 07/14/18 08:06 07/14/18 08:06 07/14/18 08:06 - Medications Medications: Current Medications Acetaminophen (Tylenol 325mg Tab) 650 mg PO Q6 PRN PRN Reason: Fever >100.4 F Last Admin: 07/12/18 12:46 Dose: 650 mg Alprazolam (Xanax) 0.25 mg PO Q6 PRN PRN Reason: Anxiety Stop: 07/15/18 08:27 Last Admin: 07/10/18 22:13 Dose: 0.25 mg Bupropion HCl (Wellbutrin) 75 mg PO DAILY [facility] Last Admin: 07/14/18 09:05 Dose: 75 mg Dextrose (Dextrose 50% Inj) 0 ml IV STAT PRN; Protocol PRN Reason: Hypoglycemia Protocol Dextrose (Glutose 15) 0 gm PO ONCE PRN; Protocol PRN Reason: Hypoglycemia Protocol Potassium Chloride/Dextrose (Potassium Chl 20 Meq In D5w) 1,000 mls @ 80 mls/hr IV .[id number] [facility] Last Admin: 07/14/18 02:45 Dose: Not Given Ceftriaxone Sodium 2 gm/ (Sodium Chloride) 100 mls @ 100 mls/hr IVPB DAILY [facility]; Protocol Potassium Chloride (Potassium Chloride 20 Meq/100 Ml) 100 mls @ 50 mls/hr IVPB ONCE ONE Stop: 07/14/18 15:05 Lactulose (Enulose) 20 gm PO DAILY PRN PRN Reason: Constipation Last Admin: 07/09/18 09:14 Dose: 20 gm Lorazepam (Ativan) 0.5 mg IVP Q8 PRN PRN Reason: Agitation Last Admin: 07/10/18 04:56 Dose: 0.5 mg Magnesium Oxide (Mag-Ox) 400 mg PO BID [facility] Stop: 07/21/18 17:01 Ondansetron HCl (Zofran Inj) 4 mg IVP Q6 PRN PRN Reason: Nausea/Vomiting Last Admin: 07/07/18 09:47 Dose: 4 mg Oxycodone HCl (Oxycodone Immediate Release Tab) 10 mg PO Q4 PRN PRN Reason: Pain, severe (8-10) Last Admin: 07/13/18 17:00 Dose: 10 mg Oxycodone HCl (Oxycontin Extended Release Tab) 20 mg PO Q12 [facility] Last Admin: 07/14/18 09:03 Dose: 20 mg Pantoprazole Sodium (Protonix Inj) 40 mg IVP DAILY [facility] Last Admin: 07/14/18 09:05 Dose: 40 mg Potassium Chloride (Potassium Chloride Oral Soln) 60 meq PO DAILY [facility] Last Admin: 07/14/18 09:04 Dose: 60 meq Senna/Docusate Sodium (Senokot S 50 Mg-8.6 Mg) 1 tab PO HS [facility] Last Admin: 07/13/18 22:05 Dose: Not Given Tamsulosin HCl (Flomax) 0.4 mg PO HS [facility] Last Admin: 07/13/18 21:17 Dose: 0.4 mg - Labs Labs: 07/14/18 09:30 07/14/18 09:30
[2018-07-14] MEDS: cefTRIAXone 2 GM in Sodium Chloride 0.9% 100 ML IVPB SCH (14:59)
[2018-07-14] MEDS: oxyCODONE 10 mg Immediate Release Tab PO PRN (17:04)
[2018-07-14] MEDS: Magnesium Oxide 400 mg Tab UD PO SCH (17:05)
--- NOTE | 2018-07-14 21:14 | CP.PCM.PN ---
Subjective - Date & Time of Evaluation Date of Evaluation: 07/12/18 Time of Evaluation: 11:00 - Subjective Subjective: Appears fatigued Patients son consented for PRBC transfusion Discussed code status and hospice with son; wants to think about it Objective - Vital Signs/Intake and Output Vital Signs (last 24 hours): Temp Pulse Resp BP Pulse Ox 99.9 F H 98 H 20 139/63 96 07/14/18 16:19 07/14/18 16:19 07/14/18 16:19 07/14/18 16:19 07/14/18 16:19 Intake and Output: 07/14/18 07/15/18 18:59 06:59 Output Total 575 Balance -575 - Medications Medications: Current Medications Acetaminophen (Tylenol 325mg Tab) 650 mg PO Q6 PRN PRN Reason: Fever >100.4 F Last Admin: 07/12/18 12:46 Dose: 650 mg Alprazolam (Xanax) 0.25 mg PO Q6 PRN PRN Reason: Anxiety Stop: 07/15/18 08:27 Last Admin: 07/10/18 22:13 Dose: 0.25 mg Bupropion HCl (Wellbutrin) 75 mg PO DAILY [facility] Last Admin: 07/14/18 09:05 Dose: 75 mg Dextrose (Dextrose 50% Inj) 0 ml IV STAT PRN; Protocol PRN Reason: Hypoglycemia Protocol Dextrose (Glutose 15) 0 gm PO ONCE PRN; Protocol PRN Reason: Hypoglycemia Protocol Potassium Chloride/Dextrose (Potassium Chl 20 Meq In D5w) 1,000 mls @ 80 mls/hr IV .[id number] [facility] Last Admin: 07/14/18 02:45 Dose: Not Given Ceftriaxone Sodium 2 gm/ (Sodium Chloride) 100 mls @ 100 mls/hr IVPB DAILY [facility]; Protocol Last Admin: 07/14/18 14:59 Dose: 100 mls/hr Lactulose (Enulose) 20 gm PO DAILY PRN PRN Reason: Constipation Last Admin: 07/09/18 09:14 Dose: 20 gm Lorazepam (Ativan) 0.5 mg IVP Q8 PRN PRN Reason: Agitation Last Admin: 07/10/18 04:56 Dose: 0.5 mg Magnesium Oxide (Mag-Ox) 400 mg PO BID [facility] Stop: 07/21/18 17:01 Last Admin: 07/14/18 17:05 Dose: 400 mg Ondansetron HCl (Zofran Inj) 4 mg IVP Q6 PRN PRN Reason: Nausea/Vomiting Last Admin: 07/07/18 09:47 Dose: 4 mg Oxycodone HCl (Oxycodone Immediate Release Tab) 10 mg PO Q4 PRN PRN Reason: Pain, severe (8-10) Last Admin: 07/14/18 17:04 Dose: 10 mg Oxycodone HCl (Oxycontin Extended Release Tab) 20 mg PO Q12 [facility] Last Admin: 07/14/18 09:03 Dose: 20 mg Pantoprazole Sodium (Protonix Inj) 40 mg IVP DAILY [facility] Last Admin: 07/14/18 09:05 Dose: 40 mg Potassium Chloride (Potassium Chloride Oral Soln) 60 meq PO DAILY [facility] Last Admin: 07/14/18 09:04 Dose: 60 meq Senna/Docusate Sodium (Senokot S 50 Mg-8.6 Mg) 1 tab PO HS [facility] Last Admin: 07/13/18 22:05 Dose: Not Given Tamsulosin HCl (Flomax) 0.4 mg PO HS [facility] Last Admin: 07/13/18 21:17 Dose: 0.4 mg - Labs Labs: 07/14/18 09:30 07/14/18 09:30 - Eye Exam Eye Exam: Normal appearance - ENT Exam ENT Exam: Mucous Membranes Dry - Respiratory Exam Respiratory Exam: NORMAL BREATHING PATTERN - GI/Abdominal Exam GI & Abdominal Exam: Normal Bowel Sounds Assessment and Plan (1) Anemia Assessment & Plan: chronic disease transfusion support Status: Acute (2) Bladder cancer Assessment & Plan: stage IV not on chemotherapy for several months s/p palliative radiotherapy son thinking about code status and hospice deferred in the past Status: Chronic
--- NOTE | 2018-07-14 21:18 | CP.PCM.PN ---
Subjective - Date & Time of Evaluation Date of Evaluation: 07/13/18 Time of Evaluation: 13:00 - Subjective Subjective: Fatigued. Objective - Vital Signs/Intake and Output Vital Signs (last 24 hours): Temp Pulse Resp BP Pulse Ox 99.9 F H 98 H 20 139/63 96 07/14/18 16:19 07/14/18 16:19 07/14/18 16:19 07/14/18 16:19 07/14/18 16:19 Intake and Output: 07/14/18 07/15/18 18:59 06:59 Output Total 575 Balance -575 - Medications Medications: Current Medications Acetaminophen (Tylenol 325mg Tab) 650 mg PO Q6 PRN PRN Reason: Fever >100.4 F Last Admin: 07/12/18 12:46 Dose: 650 mg Alprazolam (Xanax) 0.25 mg PO Q6 PRN PRN Reason: Anxiety Stop: 07/15/18 08:27 Last Admin: 07/10/18 22:13 Dose: 0.25 mg Bupropion HCl (Wellbutrin) 75 mg PO DAILY [facility] Last Admin: 07/14/18 09:05 Dose: 75 mg Dextrose (Dextrose 50% Inj) 0 ml IV STAT PRN; Protocol PRN Reason: Hypoglycemia Protocol Dextrose (Glutose 15) 0 gm PO ONCE PRN; Protocol PRN Reason: Hypoglycemia Protocol Potassium Chloride/Dextrose (Potassium Chl 20 Meq In D5w) 1,000 mls @ 80 mls/hr IV .[id number] [facility] Last Admin: 07/14/18 02:45 Dose: Not Given Ceftriaxone Sodium 2 gm/ (Sodium Chloride) 100 mls @ 100 mls/hr IVPB DAILY [facility]; Protocol Last Admin: 07/14/18 14:59 Dose: 100 mls/hr Lactulose (Enulose) 20 gm PO DAILY PRN PRN Reason: Constipation Last Admin: 07/09/18 09:14 Dose: 20 gm Lorazepam (Ativan) 0.5 mg IVP Q8 PRN PRN Reason: Agitation Last Admin: 07/10/18 04:56 Dose: 0.5 mg Magnesium Oxide (Mag-Ox) 400 mg PO BID [facility] Stop: 07/21/18 17:01 Last Admin: 07/14/18 17:05 Dose: 400 mg Ondansetron HCl (Zofran Inj) 4 mg IVP Q6 PRN PRN Reason: Nausea/Vomiting Last Admin: 07/07/18 09:47 Dose: 4 mg Oxycodone HCl (Oxycodone Immediate Release Tab) 10 mg PO Q4 PRN PRN Reason: Pain, severe (8-10) Last Admin: 07/14/18 17:04 Dose: 10 mg Oxycodone HCl (Oxycontin Extended Release Tab) 20 mg PO Q12 [facility] Last Admin: 07/14/18 09:03 Dose: 20 mg Pantoprazole Sodium (Protonix Inj) 40 mg IVP DAILY [facility] Last Admin: 07/14/18 09:05 Dose: 40 mg Potassium Chloride (Potassium Chloride Oral Soln) 60 meq PO DAILY [facility] Last Admin: 07/14/18 09:04 Dose: 60 meq Senna/Docusate Sodium (Senokot S 50 Mg-8.6 Mg) 1 tab PO HS [facility] Last Admin: 07/13/18 22:05 Dose: Not Given Tamsulosin HCl (Flomax) 0.4 mg PO [facility] Last Admin: 07/13/18 21:17 Dose: 0.4 mg - Labs Labs: 07/14/18 09:30 07/14/18 09:30 - Head Exam Head Exam: ATRAUMATIC - Eye Exam Eye Exam: Normal appearance - ENT Exam ENT Exam: Mucous Membranes Dry - Respiratory Exam Respiratory Exam: NORMAL BREATHING PATTERN - Cardiovascular Exam Cardiovascular Exam: +S1, +S2 - GI/Abdominal Exam GI & Abdominal Exam: Normal Bowel Sounds Assessment and Plan (1) Anemia Assessment & Plan: chronic disease transfusion support Status: Acute (2) Bladder cancer Assessment & Plan: stage IV not on chemotherapy for several months s/p palliative radiotherapy son thinking about code status and hospice deferred in the past Status: Chronic
--- NOTE | 2018-07-14 21:19 | CP.PCM.PN ---
Subjective - Date & Time of Evaluation Date of Evaluation: 07/14/18 Time of Evaluation: 19:00 - Subjective Subjective: Fatigued, appears comfortable Objective - Vital Signs/Intake and Output Vital Signs (last 24 hours): Temp Pulse Resp BP Pulse Ox 99.9 F H 98 H 20 139/63 96 07/14/18 16:19 07/14/18 16:19 07/14/18 16:19 07/14/18 16:19 07/14/18 16:19 Intake and Output: 07/14/18 07/15/18 18:59 06:59 Output Total 575 Balance -575 - Medications Medications: Current Medications Acetaminophen (Tylenol 325mg Tab) 650 mg PO Q6 PRN PRN Reason: Fever >100.4 F Last Admin: 07/12/18 12:46 Dose: 650 mg Alprazolam (Xanax) 0.25 mg PO Q6 PRN PRN Reason: Anxiety Stop: 07/15/18 08:27 Last Admin: 07/10/18 22:13 Dose: 0.25 mg Bupropion HCl (Wellbutrin) 75 mg PO DAILY [facility] Last Admin: 07/14/18 09:05 Dose: 75 mg Dextrose (Dextrose 50% Inj) 0 ml IV STAT PRN; Protocol PRN Reason: Hypoglycemia Protocol Dextrose (Glutose 15) 0 gm PO ONCE PRN; Protocol PRN Reason: Hypoglycemia Protocol Potassium Chloride/Dextrose (Potassium Chl 20 Meq In D5w) 1,000 mls @ 80 mls/hr IV .[id number] [facility] Last Admin: 07/14/18 02:45 Dose: Not Given Ceftriaxone Sodium 2 gm/ (Sodium Chloride) 100 mls @ 100 mls/hr IVPB DAILY [facility]; Protocol Last Admin: 07/14/18 14:59 Dose: 100 mls/hr Lactulose (Enulose) 20 gm PO DAILY PRN PRN Reason: Constipation Last Admin: 07/09/18 09:14 Dose: 20 gm Lorazepam (Ativan) 0.5 mg IVP Q8 PRN PRN Reason: Agitation Last Admin: 07/10/18 04:56 Dose: 0.5 mg Magnesium Oxide (Mag-Ox) 400 mg PO BID [facility] Stop: 07/21/18 17:01 Last Admin: 07/14/18 17:05 Dose: 400 mg Ondansetron HCl (Zofran Inj) 4 mg IVP Q6 PRN PRN Reason: Nausea/Vomiting Last Admin: 07/07/18 09:47 Dose: 4 mg Oxycodone HCl (Oxycodone Immediate Release Tab) 10 mg PO Q4 PRN PRN Reason: Pain, severe (8-10) Last Admin: 07/14/18 17:04 Dose: 10 mg Oxycodone HCl (Oxycontin Extended Release Tab) 20 mg PO Q12 [facility] Last Admin: 07/14/18 09:03 Dose: 20 mg Pantoprazole Sodium (Protonix Inj) 40 mg IVP DAILY [facility] Last Admin: 07/14/18 09:05 Dose: 40 mg Potassium Chloride (Potassium Chloride Oral Soln) 60 meq PO DAILY [facility] Last Admin: 07/14/18 09:04 Dose: 60 meq Senna/Docusate Sodium (Senokot S 50 Mg-8.6 Mg) 1 tab PO HS [facility] Last Admin: 07/13/18 22:05 Dose: Not Given Tamsulosin HCl (Flomax) 0.4 mg PO [facility] Last Admin: 07/13/18 21:17 Dose: 0.4 mg - Labs Labs: 07/14/18 09:30 07/14/18 09:30 - Head Exam Head Exam: ATRAUMATIC - Eye Exam Eye Exam: Normal appearance - ENT Exam ENT Exam: Mucous Membranes Dry - Respiratory Exam Respiratory Exam: NORMAL BREATHING PATTERN - Cardiovascular Exam Cardiovascular Exam: +S1, +S2 - GI/Abdominal Exam GI & Abdominal Exam: Normal Bowel Sounds Assessment and Plan (1) Anemia Assessment & Plan: chronic disease transfusion support Status: Acute (2) Bladder cancer Assessment & Plan: stage IV not on chemotherapy for several months s/p palliative radiotherapy son thinking about code status and hospice deferred in the past Status: Chronic
[2018-07-14] MEDS: Docusate-Senna 50 mg-8.6 mg Tab PO SCH (22:15)
[2018-07-15] MEDS: Potassium Chl 20mEq & D5W 1,000 ML IV SCH ×3 (00:58→17:08)
[2018-07-15 06:31] LABS: HEMOGLOBIN 8.8 g/dL (12.0-18.0); MEAN CELL VOLUME 92.9 fl (80.0-94.0); MEAN CORPUSCULAR HEMOGLOBIN 30.4 pg (27.0-31.0); MEAN CORPUSCULAR HGB CONC 32.7 g/dL (33.0-37.0); RBC 2.88 Mil/uL (4.40-5.90); RED CELL DISTRIBUTION WIDTH 19.7 % (11.5-14.5); WHITE BLOOD COUNT 5.4 K/uL (4.8-10.8)
[2018-07-15 06:51] LABS: ALB/GLOB RATIO 0.7 (1.0-2.1); ALBUMIN 2.6 g/dL (3.5-5.0); CALCIUM 7.3 mg/dL (8.4-10.2)
[2018-07-15] MEDS: oxyCODONE 20 mg ER Tab (oxyCONTIN) PO SCH ×2 (09:42→11:14)
[2018-07-15] MEDS: cefTRIAXone 2 GM in Sodium Chloride 0.9% 100 ML IVPB SCH (09:43)
[2018-07-15] MEDS: Magnesium Oxide 400 mg Tab UD PO SCH ×3 (09:43→17:10)
[2018-07-15] MEDS: Potassium Chloride 20 mEq/15 ml LIQ UD PO SCH ×2 (09:44→11:13)
[2018-07-15] MEDS ORDERED: Potassium Chloride 20 mEq 100 ML IVPB ONE (10:04)
--- NOTE | 2018-07-15 10:59 | CP.PCM.PN ---
Subjective - Date & Time of Evaluation Date of Evaluation: 07/15/18 Time of Evaluation: 10:59 - Subjective Subjective: ID note- pt. seen and examined with his nurse. afebrile but he is agitated. Objective - Vital Signs/Intake and Output Vital Signs (last 24 hours): Temp Pulse Resp BP Pulse Ox 99.3 F 102 H 20 130/69 97 07/15/18 08:49 07/15/18 08:49 07/15/18 08:49 07/15/18 08:49 07/15/18 08:49 - Medications Medications: Current Medications Acetaminophen (Tylenol 325mg Tab) 650 mg PO Q6 PRN PRN Reason: Fever >100.4 F Last Admin: 07/12/18 12:46 Dose: 650 mg Bupropion HCl (Wellbutrin) 75 mg PO DAILY [facility] Last Admin: 07/15/18 09:43 Dose: 75 mg Dextrose (Dextrose 50% Inj) 0 ml IV STAT PRN; Protocol PRN Reason: Hypoglycemia Protocol Dextrose (Glutose 15) 0 gm PO ONCE PRN; Protocol PRN Reason: Hypoglycemia Protocol Potassium Chloride/Dextrose (Potassium Chl 20 Meq In D5w) 1,000 mls @ 80 mls/hr IV .[id number] [facility] Last Admin: 07/15/18 03:50 Dose: Not Given Ceftriaxone Sodium 2 gm/ (Sodium Chloride) 100 mls @ 100 mls/hr IVPB DAILY [facility]; Protocol Last Admin: 07/15/18 09:43 Dose: 100 mls/hr Potassium Chloride (Potassium Chloride 20 Meq/100 Ml) 100 mls @ 50 mls/hr IVPB ONCE ONE Stop: 07/15/18 12:03 Lactulose (Enulose) 20 gm PO DAILY PRN PRN Reason: Constipation Last Admin: 07/09/18 09:14 Dose: 20 gm Lorazepam (Ativan) 0.5 mg IVP Q8 PRN PRN Reason: Agitation Last Admin: 07/10/18 04:56 Dose: 0.5 mg Magnesium Oxide (Mag-Ox) 400 mg PO BID [facility] Stop: 07/21/18 17:01 Last Admin: 07/15/18 09:43 Dose: 400 mg Ondansetron HCl (Zofran Inj) 4 mg IVP Q6 PRN PRN Reason: Nausea/Vomiting Last Admin: 07/07/18 09:47 Dose: 4 mg Oxycodone HCl (Oxycodone Immediate Release Tab) 10 mg PO Q4 PRN PRN Reason: Pain, severe (8-10) Last Admin: 07/14/18 17:04 Dose: 10 mg Oxycodone HCl (Oxycontin Extended Release Tab) 20 mg PO Q12 [facility] Last Admin: 07/15/18 09:42 Dose: 20 mg Pantoprazole Sodium (Protonix Inj) 40 mg IVP DAILY [facility] Last Admin: 07/15/18 09:45 Dose: 40 mg Potassium Chloride (Potassium Chloride Oral Soln) 60 meq PO DAILY [facility] Last Admin: 07/15/18 09:44 Dose: 60 meq Senna/Docusate Sodium (Senokot S 50 Mg-8.6 Mg) 1 tab PO HS [facility] Last Admin: 07/14/18 22:15 Dose: Not Given Tamsulosin HCl (Flomax) 0.4 mg PO [facility] Last Admin: 07/14/18 22:13 Dose: 0.4 mg - Labs Labs: - Additional Findings Additional findings: - Constitutional Appears: No Acute Distress - Head Exam Head Exam: ATRAUMATIC - Eye Exam Eye Exam: EOMI, PERRL - ENT Exam ENT Exam: Normal Oropharynx - Neck Exam Neck exam: Positive for: Full Rom - Respiratory Exam Respiratory Exam: Clear to Auscultation Bilateral, NORMAL BREATHING PATTERN - Cardiovascular Exam Cardiovascular Exam: RRR, +S1, +S2 - GI/Abdominal Exam GI & Abdominal Exam: Normal Bowel Sounds, Soft Additional comments: NT, ND - Extremities Exam Extremities exam: Positive for: normal inspection - Back Exam Additional comments: b/l nephrostomy tubes in place, no surrounding erythema urine in bag clear b/l - Neurological Exam Neurological exam: agitated today skin- has small stage 1 sacral skin breakage, no discharge no surrounding erythema Laboratory Results - last 72 hr 07/12/18 07/12/18 07/12/18 11:39 15:41 18:44 WBC RBC Hgb Hct MCV MCH MCHC RDW Plt Count Sodium Potassium Chloride Carbon Dioxide Anion Gap BUN Creatinine Est GFR ( Amer) Est GFR (Non-Af Amer) POC Glucose (mg/dL) 103 Random Glucose Calcium Total Bilirubin AST ALT Alkaline Phosphatase Total Protein Albumin Globulin Albumin/Globulin Ratio Urine Color Yellow Urine Clarity Cloudy Urine pH 6.0 Ur Specific [place] 1.016 Urine Protein 100 Urine Glucose (UA) Neg Urine Ketones Negative Urine Blood Moderate Urine Nitrate Positive H Urine Bilirubin Negative Urine Urobilinogen 0.2-1.0 Ur Leukocyte Esterase Large Urine RBC (Auto) 13 H Urine Microscopic WBC 120 H Ur Squamous Epith Cells < 1 Urine Bacteria Few H Hyaline Casts 0-2 Blood Type B POSITIVE Antibody Screen Negative Crossmatch See Detail BBK History Checked Patient has bt 07/12/18 07/13/18 07/13/18 21:29 06:20 06:20 WBC 4.3 L RBC 2.89 L Hgb 9.0 L Hct 26.5 L MCV 91.5 MCH 31.0 MCHC 33.9 RDW 19.2 H Plt Count 106 L Sodium 150 H Potassium 2.9 L Chloride 124 H Carbon Dioxide 20 L Anion Gap 9 L BUN 27 H Creatinine 1.6 H Est GFR ( Amer) 51 Est GFR (Non-Af Amer) 42 POC Glucose (mg/dL) 94 Random Glucose 102 Calcium 7.5 L Total Bilirubin AST ALT Alkaline Phosphatase Total Protein Albumin Globulin Albumin/Globulin Ratio Urine Color Urine Clarity Urine pH Ur Specific [place] Urine Protein Urine Glucose (UA) Urine Ketones Urine Blood Urine Nitrate Urine Bilirubin Urine Urobilinogen Ur Leukocyte Esterase Urine RBC (Auto) Urine Microscopic WBC Ur Squamous Epith Cells Urine Bacteria Hyaline Casts Blood Type Antibody Screen Crossmatch BBK History Checked 07/13/18 07/13/18 07/13/18 06:55 10:38 16:14 WBC RBC Hgb Hct MCV MCH MCHC RDW Plt Count Sodium Potassium Chloride Carbon Dioxide Anion Gap BUN Creatinine Est GFR ( Amer) Est GFR (Non-Af Amer) POC Glucose (mg/dL) 91 135 H 100 Random Glucose Calcium Total Bilirubin AST ALT Alkaline Phosphatase Total Protein Albumin Globulin Albumin/Globulin Ratio Urine Color Urine Clarity Urine pH Ur Specific [place] Urine Protein Urine Glucose (UA) Urine Ketones Urine Blood Urine Nitrate Urine Bilirubin Urine Urobilinogen Ur Leukocyte Esterase Urine RBC (Auto) Urine Microscopic WBC Ur Squamous Epith Cells Urine Bacteria Hyaline Casts Blood Type Antibody Screen Crossmatch BBK History Checked 07/13/18 07/14/18 07/14/18 21:28 06:13 09:30 WBC 4.1 L RBC 2.73 L Hgb 8.4 L Hct 24.9 L MCV 91.3 MCH 31.0 MCHC 33.9 RDW 19.5 H Plt Count 121 L Sodium Potassium Chloride Carbon Dioxide Anion Gap BUN Creatinine Est GFR ( Amer) Est GFR (Non-Af Amer) POC Glucose (mg/dL) 124 H 141 H Random Glucose Calcium Total Bilirubin AST ALT Alkaline Phosphatase Total Protein Albumin Globulin Albumin/Globulin Ratio Urine Color Urine Clarity Urine pH Ur Specific [place] Urine Protein Urine Glucose (UA) Urine Ketones Urine Blood Urine Nitrate Urine Bilirubin Urine Urobilinogen Ur Leukocyte Esterase Urine RBC (Auto) Urine Microscopic WBC Ur Squamous Epith Cells Urine Bacteria Hyaline Casts Blood Type Antibody Screen Crossmatch BBK History Checked 07/14/18 07/14/18 07/14/18 09:30 10:58 15:58 WBC RBC Hgb Hct MCV MCH MCHC RDW Plt Count Sodium 150 H Potassium 3.1 L Chloride 121 H Carbon Dioxide 19 L Anion Gap 13 BUN 26 H Creatinine 1.4 Est GFR ( Amer) 59 Est GFR (Non-Af Amer) 49 POC Glucose (mg/dL) 227 H 161 H Random Glucose 135 H Calcium 7.2 L Total Bilirubin 0.9 AST 39 ALT 29 Alkaline Phosphatase 591 H D Total Protein 6.1 L Albumin 2.5 L Globulin 3.7 Albumin/Globulin Ratio 0.7 L Urine Color Urine Clarity Urine pH Ur Specific [place] Urine Protein Urine Glucose (UA) Urine Ketones Urine Blood Urine Nitrate Urine Bilirubin Urine Urobilinogen Ur Leukocyte Esterase Urine RBC (Auto) Urine Microscopic WBC Ur Squamous Epith Cells Urine Bacteria Hyaline Casts Blood Type Antibody Screen Crossmatch BBK History Checked 07/14/18 07/15/18 07/15/18 21:27 05:45 05:45 WBC 5.4 RBC 2.88 L Hgb 8.8 L Hct 26.8 L MCV 92.9 MCH 30.4 MCHC 32.7 L RDW 19.7 H Plt Count 140 Sodium 153 H Potassium 3.3 L Chloride 124 H Carbon Dioxide 18 L Anion Gap 14 BUN 23 H Creatinine 1.5 Est GFR ( Amer) 54 Est GFR (Non-Af Amer) 45 POC Glucose (mg/dL) 145 H Random Glucose 137 H Calcium 7.3 L Total Bilirubin 0.7 AST 55 ALT 32 Alkaline Phosphatase 633 H Total Protein 6.4 Albumin 2.6 L Globulin 3.9 Albumin/Globulin Ratio 0.7 L Urine Color Urine Clarity Urine pH Ur Specific [place] Urine Protein Urine Glucose (UA) Urine Ketones Urine Blood Urine Nitrate Urine Bilirubin Urine Urobilinogen Ur Leukocyte Esterase Urine RBC (Auto) Urine Microscopic WBC Ur Squamous Epith Cells Urine Bacteria Hyaline Casts Blood Type Antibody Screen Crossmatch BBK History Checked 07/15/18 06:21 WBC RBC Hgb Hct MCV MCH MCHC RDW Plt Count Sodium Potassium Chloride Carbon Dioxide Anion Gap BUN Creatinine Est GFR ( Amer) Est GFR (Non-Af Amer) POC Glucose (mg/dL) 148 H Random Glucose Calcium Total Bilirubin AST ALT Alkaline Phosphatase Total Protein Albumin Globulin Albumin/Globulin Ratio Urine Color Urine Clarity Urine pH Ur Specific [place] Urine Protein Urine Glucose (UA) Urine Ketones Urine Blood Urine Nitrate Urine Bilirubin Urine Urobilinogen Ur Leukocyte Esterase Urine RBC (Auto) Urine Microscopic WBC Ur Squamous Epith Cells Urine Bacteria Hyaline Casts Blood Type Antibody Screen Crossmatch BBK History Checked Microbiology 07/13/18 12:32 Blood-Thru Central Line Blood Culture - Final Klebsiella Pneumoniae Ssp Pneu 07/13/18 12:32 Blood-Thru Central Line Gram Stain - Final 07/12/18 18:44 Urine,Veliz Urine Culture - Final Klebsiella Pneumoniae Ssp Pneu 07/11/18 12:32 Blood Blood Culture - Final Klebsiella Pneumoniae Ssp Pneu 07/11/18 12:32 Blood Gram Stain - Final 07/11/18 12:32 Blood Blood Culture - Final Klebsiella Pneumoniae Ssp Pneu 07/11/18 12:32 Blood Gram Stain - Final Assessment and Plan (1) Malignant neoplasm metastatic from bladder Status: Acute (2) Obstructive uropathy Status: Acute (3) Bacteremia Status: Acute - Assessment and Plan (Free Text) Assessment: A/P- 78 year old male with stage 4 bladder cancer with bony mets and obstructive uropathy s/p TURBT and b/l nephrostomy tubes since 11/2017 s/p multiple hospitalizations and multiorganisms UTIs all treated in the past admissions s/p twice nephrostomy tube changes with most recent one in 06/08/2018 . afebrile past 2 days. no leukocytosis actually leukopenic prelim blood cx was reported initially as- one of the 2 bottles gram pos bacilli second bottle-neg yesterday the same blood cx were reported as klebsiella pneumonia in both blood cx from 07/11/2018 last UA- + LE but negative for any nitrates urine cx 07/11/2018- K.pneumonia as well repeat blood cx from port 07/13/2018- K.pneumonia CXR- negative as per report. renal US- no hydro as per report. flu test -neg plan- pt. started on IV ceftriaxone 2 gram daily yesterday since the K.Pneumonia is sensitive to this aantibiotic. check 2 more blood cx. check TTE r/o IE. port would need to be removed since blood cx from the port is reported as positive for K.Pneumonia. all above d/w [employer] sapna and pt's pmd attending.
--- NOTE | 2018-07-15 12:25 | PN ---
DATE: 07/15/2018 SUBJECTIVE: The patient seen and examined. Interim events noted. Consults noted and appreciated. The patient remains in regular medical floor. Sleeping and arousable. Denies any chest pain or shortness of breath. Complains of generalized pain. Controlled with current pain medication. PHYSICAL EXAMINATION: GENERAL: The patient is in no acute distress. VITAL SIGNS: Stable. HEART EXAM: S1, S2 normal and regular. LUNGS: Good bilateral air exchange. ABDOMEN: Soft and nontender. The patient has nephrostomy tube bilaterally draining clear urine. EXTREMITIES: No edema. No calf swelling. No tenderness. No acute ischemia. 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 DIAGNOSTIC DATA: Available diagnostic data reviewed. The patient's blood culture is positive for Klebsiella. Urine culture also is positive due to multiple antibiotics. We will await Infectious Disease to choose the antibiotic. The patient is clinically stable and getting better. Plan as ordered. Vinay Henderson MD
--- NOTE | 2018-07-15 12:34 | CP.PCM.PCO ---
Assessment/Plan - Assessment/Plan Assessment (Free Text): Pt restless in bed, confused, not tolerating oral intake. Diet changed to dysphagia pureed at this time. Spoke to Dr. Obregon regarding pain management, orders to d/c Oxycodone and place pt on Fentanyl 25mcg patch. Called pt's son Jessee ([phone]), left a voicemail to call us back. Called pt's other son, Vinny ([phone]) and spoke to him about pt's condition, code status and hospice. Vinny states he cannot make any decisions now, he will talk to Jessee and they will decide on what to do. Encouraged Vinny to come to the hospital with his brother, Jessee to visit patient, states he will try. Patient's blood cultures including culture through central line positive for Klebsiella. Per Dr. Herbert, orders for echo and d/c port. Consult for general sx placed for port removal. Dr. Henderson aware. Will monitor
--- NOTE | 2018-07-15 13:13 | CP.PCM.PN ---
Subjective - Date & Time of Evaluation Date of Evaluation: 07/15/18 Time of Evaluation: 13:12 - Subjective Subjective: pt more confused Objective - Vital Signs/Intake and Output Vital Signs (last 24 hours): Temp Pulse Resp BP Pulse Ox 99.3 F 102 H 20 130/69 97 07/15/18 08:49 07/15/18 08:49 07/15/18 08:49 07/15/18 08:49 07/15/18 08:49 - Medications Medications: Current Medications Acetaminophen (Tylenol 325mg Tab) 650 mg PO Q6 PRN PRN Reason: Fever >100.4 F Last Admin: 07/12/18 12:46 Dose: 650 mg Bupropion HCl (Wellbutrin) 75 mg PO DAILY [facility] Last Admin: 07/15/18 11:14 Dose: Not Given Dextrose (Dextrose 50% Inj) 0 ml IV STAT PRN; Protocol PRN Reason: Hypoglycemia Protocol Dextrose (Glutose 15) 0 gm PO ONCE PRN; Protocol PRN Reason: Hypoglycemia Protocol Fentanyl (Duragesic) 1 patch TD Q3D [facility]; Protocol Potassium Chloride/Dextrose (Potassium Chl 20 Meq In D5w) 1,000 mls @ 80 mls/hr IV .[id number] [facility] Last Admin: 07/15/18 03:50 Dose: Not Given Ceftriaxone Sodium 2 gm/ (Sodium Chloride) 100 mls @ 100 mls/hr IVPB DAILY [facility]; Protocol Last Admin: 07/15/18 09:43 Dose: 100 mls/hr Lactulose (Enulose) 20 gm PO DAILY PRN PRN Reason: Constipation Last Admin: 07/09/18 09:14 Dose: 20 gm Lorazepam (Ativan) 0.5 mg IVP Q8 PRN PRN Reason: Agitation Last Admin: 07/10/18 04:56 Dose: 0.5 mg Magnesium Oxide (Mag-Ox) 400 mg PO BID [facility] Stop: 07/21/18 17:01 Last Admin: 07/15/18 11:12 Dose: Not Given Ondansetron HCl (Zofran Inj) 4 mg IVP Q6 PRN PRN Reason: Nausea/Vomiting Last Admin: 07/07/18 09:47 Dose: 4 mg Pantoprazole Sodium (Protonix Inj) 40 mg IVP DAILY [facility] Last Admin: 07/15/18 09:45 Dose: 40 mg Potassium Chloride (Potassium Chloride Oral Soln) 60 meq PO DAILY [facility] Last Admin: 07/15/18 11:13 Dose: Not Given Senna/Docusate Sodium (Senokot S 50 Mg-8.6 Mg) 1 tab PO [facility] Last Admin: 07/14/18 22:15 Dose: Not Given Tamsulosin HCl (Flomax) 0.4 mg PO [facility] Last Admin: 07/14/18 22:13 Dose: 0.4 mg - Labs Labs: 07/15/18 05:45 07/15/18 05:45 - Head Exam Head Exam: NORMOCEPHALIC - Neck Exam Neck Exam: Normal Inspection - Respiratory Exam Respiratory Exam: NORMAL BREATHING PATTERN - Cardiovascular Exam Cardiovascular Exam: REGULAR RHYTHM - GI/Abdominal Exam GI & Abdominal Exam: Soft, Tenderness, Normal Bowel Sounds Assessment and Plan - Assessment and Plan (Free Text) Assessment: 78 yo male with anemia 1:1 SW issues no bleeding
--- NOTE | 2018-07-15 14:38 | CP.PCM.CON ---
History of Present Illness - History of Present Illness History of Present Illness: General surgery consult note for Dr. 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 On 07/12 patient developed fever of 101.2 and on 07/13 blood cultures were taken from the portacath and subsequently grew Klebsiella pneumoniae. Patient is unable to provide history due to altered mental status. POA will need to be contacted in order to obtain consent for removal. Review of Systems - Review of Systems Systems not reviewed;Unavailable: Altered Mental Status All systems: reviewed and no additional remarkable complaints except Past Patient History - Infectious Disease Hx of Infectious Diseases: None - Past Medical History & Family History Past Medical History?: Yes - Past Social History Smoking Status: Former Smoker - CARDIAC Hx Peripheral Edema: Yes (BLE) - PULMONARY Hx Respiratory Disorders: No - NEUROLOGICAL Hx Neurological Disorder: No - HEENT Hx HEENT Problems: No - RENAL Hx Chronic Kidney Disease: No - ENDOCRINE/METABOLIC Hx Endocrine Disorders: Yes Hx Diabetes Mellitus Type 2: Yes - HEMATOLOGICAL/ONCOLOGICAL Hx Anemia: Yes - INTEGUMENTARY Hx Dermatological Problems: No - MUSCULOSKELETAL/RHEUMATOLOGICAL Hx Musculoskeletal Disorders: No Hx Falls: No - GASTROINTESTINAL Hx Gastrointestinal Disorders: No Other/Comment: TURBT - GENITOURINARY/GYNECOLOGICAL Hx Genitourinary Disorders: Yes 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) Hx Prostate Problems: Yes Other/Comment: B/L Nephrostomy tubes; HX OBSTRUCTIVE UROPATHY - PSYCHIATRIC Hx Depression: Yes - SURGICAL HISTORY Hx Herniorrhaphy: Yes Other/Comment: TURBT - ANESTHESIA Hx Anesthesia: Yes Hx Anesthesia Reactions: No Hx Malignant Hyperthermia: No Meds Allergies/Adverse Reactions: Allergies Allergy/AdvReac Type Severity Reaction Status Date / Time aspirin Allergy DIZZINESS Verified 06/24/18 12:51 - Medications Medications: Current Medications Acetaminophen (Tylenol 325mg Tab) 650 mg PO Q6 PRN PRN Reason: Fever >100.4 F Last Admin: 07/12/18 12:46 Dose: 650 mg Bupropion HCl (Wellbutrin) 75 mg PO DAILY [facility] Last Admin: 07/15/18 11:14 Dose: Not Given Dextrose (Dextrose 50% Inj) 0 ml IV STAT PRN; Protocol PRN Reason: Hypoglycemia Protocol Dextrose (Glutose 15) 0 gm PO ONCE PRN; Protocol PRN Reason: Hypoglycemia Protocol Fentanyl (Duragesic) 1 patch TD Q3D [facility]; Protocol Last Admin: 07/15/18 13:22 Dose: 1 patch Potassium Chloride/Dextrose (Potassium Chl 20 Meq In D5w) 1,000 mls @ 80 mls/hr IV .[id number] [facility] Last Admin: 07/15/18 03:50 Dose: Not Given Ceftriaxone Sodium 2 gm/ (Sodium Chloride) 100 mls @ 100 mls/hr IVPB DAILY [facility]; Protocol Last Admin: 07/15/18 09:43 Dose: 100 mls/hr Lactulose (Enulose) 20 gm PO DAILY PRN PRN Reason: Constipation Last Admin: 07/09/18 09:14 Dose: 20 gm Lorazepam (Ativan) 0.5 mg IVP Q8 PRN PRN Reason: Agitation Last Admin: 07/10/18 04:56 Dose: 0.5 mg Magnesium Oxide (Mag-Ox) 400 mg PO BID [facility] Stop: 07/21/18 17:01 Last Admin: 07/15/18 11:12 Dose: Not Given Ondansetron HCl (Zofran Inj) 4 mg IVP Q6 PRN PRN Reason: Nausea/Vomiting Last Admin: 07/07/18 09:47 Dose: 4 mg Pantoprazole Sodium (Protonix Inj) 40 mg IVP DAILY [facility] Last Admin: 07/15/18 09:45 Dose: 40 mg Potassium Chloride (Potassium Chloride Oral Soln) 60 meq PO DAILY [facility] Last Admin: 07/15/18 11:13 Dose: Not Given Senna/Docusate Sodium (Senokot S 50 Mg-8.6 Mg) 1 tab PO [facility] Last Admin: 07/14/18 22:15 Dose: Not Given Tamsulosin HCl (Flomax) 0.4 mg PO [facility] Last Admin: 07/14/18 22:13 Dose: 0.4 mg Physical Exam - Constitutional Appears: No Acute Distress, Confused, Cachectic, Chronically Ill - Head Exam Head Exam: NORMOCEPHALIC - Eye Exam Eye Exam: EOMI - ENT Exam ENT Exam: Mucous Membranes Moist - Respiratory Exam Respiratory Exam: NORMAL BREATHING PATTERN - Cardiovascular Exam Cardiovascular Exam: REGULAR RHYTHM - GI/Abdominal Exam GI & Abdominal Exam: Soft. absent: Distended, Tenderness - Extremities Exam Extremities exam: Positive for: normal capillary refill, pedal pulses present. Negative for: calf tenderness, pedal edema - Neurological Exam Neurological exam: Alert, Altered - Psychiatric Exam Additional comments: patient is confused and mumbles words with no coherent meaning - Skin Skin Exam: Dry, Intact, Normal Color, Warm Additional comments: portacath is easily visible due to patient's cachectic state, no erythema, induration, tenderness or fluctuance noted at the site. Results - Vital Signs Recent Vital Signs: Last Vital Signs Temp 99.3 F 07/15/18 08:49 Pulse 102 H 07/15/18 08:49 Resp 20 07/15/18 08:49 BP 130/69 07/15/18 08:49 Pulse Ox 97 07/15/18 08:49 - Labs Result Diagrams: 07/15/18 05:45 07/15/18 05:45 Labs: Laboratory Results - last 24 hr 07/12/18 07/14/18 07/14/18 11:39 15:58 21:27 WBC RBC Hgb Hct MCV MCH MCHC RDW Plt Count Sodium Potassium Chloride Carbon Dioxide Anion Gap BUN Creatinine Est GFR ( Amer) Est GFR (Non-Af Amer) POC Glucose (mg/dL) 161 H 145 H Random Glucose Calcium Total Bilirubin AST ALT Alkaline Phosphatase Total Protein Albumin Globulin Albumin/Globulin Ratio Crossmatch See Detail 07/15/18 07/15/18 07/15/18 05:45 05:45 06:21 WBC 5.4 RBC 2.88 L Hgb 8.8 L Hct 26.8 L MCV 92.9 MCH 30.4 MCHC 32.7 L RDW 19.7 H Plt Count 140 Sodium 153 H Potassium 3.3 L Chloride 124 H Carbon Dioxide 18 L Anion Gap 14 BUN 23 H Creatinine 1.5 Est GFR ( Amer) 54 Est GFR (Non-Af Amer) 45 POC Glucose (mg/dL) 148 H Random Glucose 137 H Calcium 7.3 L Total Bilirubin 0.7 AST 55 ALT 32 Alkaline Phosphatase 633 H Total Protein 6.4 Albumin 2.6 L Globulin 3.9 Albumin/Globulin Ratio 0.7 L Crossmatch Assessment & Plan - Assessment and Plan (Free Text) Assessment: 78 yr old male with contaminated portacath, cultures growing Klebsiella Plan: continue to with abx per ID plan for reculture of central line blood to r/o contamination of specimen with urine culture taken at same time will f/u repeat culture d/w Dr. flores, all further recs per her Carolina Can, PGY 1 - Date & Time Date: 07/15/18 Time: 15:25
--- NOTE | 2018-07-15 15:40 | CP.PCM.PN ---
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 monitor UOP lytes reviewed, continue with hypotonic fluids as ordered. increase to 100 ml/hr hypokalemia being replaced Hypertension control with meds as ordered. Maintain hemodynamics stable. Avoid hypotension. started Mag 400 mg bid and sodium bicarb 650 bid ROS: pt unable to provide much hx due to AMS Physical Examination: General Appearance: in no acute respiratory distress, co-operative . ill and debilitated appearing, cachexic Vitals reviewed and noted as below Head; normocephalic. has left forehead bruise ENT: no ulcers no thrush. Tongue is midline. EYES: Eye muscles and extraocular movement intact. Sclera is anicteric. Neck; supple nno thyromegaly or bruit Lungs: Normal respiratory rate/effort. Breath sounds bilateral equal and clearer Heart: Normal rate. s1s2 normal. No rub or gallop. Extremities: no edema. No varicose veins Neurological: Patient is alert and more oriented. Skin: Warm and dry. Normal turgor. No rash Abdomen: Abdomen is soft. Bowel sounds +. There is no abdominal tenderness, no guarding/rigidity no organomegaly Psych: unable : has b/l nephrostomy tubes Objective - Vital Signs/Intake and Output Vital Signs (last 24 hours): Temp Pulse Resp BP Pulse Ox 99.3 F 102 H 20 130/69 97 07/15/18 08:49 07/15/18 08:49 07/15/18 08:49 07/15/18 08:49 07/15/18 08:49 - Medications Medications: Current Medications Acetaminophen (Tylenol 325mg Tab) 650 mg PO Q6 PRN PRN Reason: Fever >100.4 F Last Admin: 07/12/18 12:46 Dose: 650 mg Bupropion HCl (Wellbutrin) 75 mg PO DAILY [facility] Last Admin: 07/15/18 11:14 Dose: Not Given Dextrose (Dextrose 50% Inj) 0 ml IV STAT PRN; Protocol PRN Reason: Hypoglycemia Protocol Dextrose (Glutose 15) 0 gm PO ONCE PRN; Protocol PRN Reason: Hypoglycemia Protocol Fentanyl (Duragesic) 1 patch TD Q3D [facility]; Protocol Last Admin: 07/15/18 13:22 Dose: 1 patch Ceftriaxone Sodium 2 gm/ (Sodium Chloride) 100 mls @ 100 mls/hr IVPB DAILY [facility]; Protocol Last Admin: 07/15/18 09:43 Dose: 100 mls/hr Potassium Chloride/Dextrose (Potassium Chl 20 Meq In D5w) 1,000 mls @ 100 mls/hr IV .Q10H [facility] Lactulose (Enulose) 20 gm PO DAILY PRN PRN Reason: Constipation Last Admin: 07/09/18 09:14 Dose: 20 gm Lorazepam (Ativan) 0.5 mg IVP Q8 PRN PRN Reason: Agitation Last Admin: 07/10/18 04:56 Dose: 0.5 mg Magnesium Oxide (Mag-Ox) 400 mg PO BID [facility] Stop: 07/21/18 17:01 Last Admin: 07/15/18 11:12 Dose: Not Given Ondansetron HCl (Zofran Inj) 4 mg IVP Q6 PRN PRN Reason: Nausea/Vomiting Last Admin: 07/07/18 09:47 Dose: 4 mg Pantoprazole Sodium (Protonix Inj) 40 mg IVP DAILY [facility] Last Admin: 07/15/18 09:45 Dose: 40 mg Potassium Chloride (Potassium Chloride Oral Soln) 60 meq PO DAILY [facility] Last Admin: 07/15/18 11:13 Dose: Not Given Senna/Docusate Sodium (Senokot S 50 Mg-8.6 Mg) 1 tab PO [facility] Last Admin: 07/14/18 22:15 Dose: Not Given Sodium Bicarbonate (Sodium Bicarbonate Tab) 650 mg PO BID [facility] Tamsulosin HCl (Flomax) 0.4 mg PO HS [facility] Last Admin: 07/14/18 22:13 Dose: 0.4 mg - Labs Labs: 07/15/18 05:45 07/15/18 05:45
[2018-07-15] MEDS: Docusate-Senna 50 mg-8.6 mg Tab PO SCH (21:36)
--- NOTE | 2018-07-15 22:51 | CP.PCM.PN ---
Subjective - Date & Time of Evaluation Date of Evaluation: 07/15/18 Time of Evaluation: 12:00 - Subjective Subjective: Confused Objective - Vital Signs/Intake and Output Vital Signs (last 24 hours): Temp Pulse Resp BP Pulse Ox 99.9 F H 98 H 18 117/64 97 07/15/18 16:58 07/15/18 16:58 07/15/18 16:58 07/15/18 16:58 07/15/18 16:58 - Medications Medications: Current Medications Acetaminophen (Tylenol 325mg Tab) 650 mg PO Q6 PRN PRN Reason: Fever >100.4 F Last Admin: 07/12/18 12:46 Dose: 650 mg Bupropion HCl (Wellbutrin) 75 mg PO DAILY [facility] Last Admin: 07/15/18 11:14 Dose: Not Given Dextrose (Dextrose 50% Inj) 0 ml IV STAT PRN; Protocol PRN Reason: Hypoglycemia Protocol Dextrose (Glutose 15) 0 gm PO ONCE PRN; Protocol PRN Reason: Hypoglycemia Protocol Fentanyl (Duragesic) 1 patch TD Q3D [facility]; Protocol Last Admin: 07/15/18 13:22 Dose: 1 patch Ceftriaxone Sodium 2 gm/ (Sodium Chloride) 100 mls @ 100 mls/hr IVPB DAILY [facility]; Protocol Last Admin: 07/15/18 09:43 Dose: 100 mls/hr Potassium Chloride/Dextrose (Potassium Chl 20 Meq In D5w) 1,000 mls @ 100 mls/hr IV .Q10H [facility] Last Admin: 07/15/18 17:08 Dose: 100 mls/hr Lactulose (Enulose) 20 gm PO DAILY PRN PRN Reason: Constipation Last Admin: 07/09/18 09:14 Dose: 20 gm Lorazepam (Ativan) 0.5 mg IVP Q8 PRN PRN Reason: Agitation Last Admin: 07/10/18 04:56 Dose: 0.5 mg Magnesium Oxide (Mag-Ox) 400 mg PO BID [facility] Stop: 07/21/18 17:01 Last Admin: 07/15/18 17:10 Dose: Not Given Ondansetron HCl (Zofran Inj) 4 mg IVP Q6 PRN PRN Reason: Nausea/Vomiting Last Admin: 07/07/18 09:47 Dose: 4 mg Pantoprazole Sodium (Protonix Inj) 40 mg IVP DAILY [facility] Last Admin: 07/15/18 09:45 Dose: 40 mg Potassium Chloride (Potassium Chloride Oral Soln) 60 meq PO DAILY [facility] Last Admin: 07/15/18 11:13 Dose: Not Given Senna/Docusate Sodium (Senokot S 50 Mg-8.6 Mg) 1 tab PO HS [facility] Last Admin: 07/15/18 21:36 Dose: 1 tab Sodium Bicarbonate (Sodium Bicarbonate Tab) 650 mg PO BID [facility] Last Admin: 07/15/18 17:02 Dose: 650 mg Tamsulosin HCl (Flomax) 0.4 mg PO HS [facility] Last Admin: 07/15/18 21:36 Dose: 0.4 mg - Labs Labs: 07/15/18 05:45 07/15/18 05:45 - Head Exam Head Exam: ATRAUMATIC - Eye Exam Eye Exam: Normal appearance - ENT Exam ENT Exam: Mucous Membranes Dry - Respiratory Exam Respiratory Exam: NORMAL BREATHING PATTERN - Cardiovascular Exam Cardiovascular Exam: +S1, +S2 - GI/Abdominal Exam GI & Abdominal Exam: Normal Bowel Sounds Assessment and Plan (1) Anemia Assessment & Plan: chronic disease transfusion support Status: Acute (2) Bladder cancer Assessment & Plan: stage IV not on chemotherapy for several months s/p palliative radiotherapy son thinking about code status and hospice deferred in the past Status: Chronic
[2018-07-16] MEDS: Potassium Chl 20mEq & D5W 1,000 ML IV SCH ×4 (00:45→20:45)
--- NOTE | 2018-07-16 07:57 | CP.PCM.PN ---
Addendum entered and electronically signed by Pieter Abarca DO 07/16/18 09:32: will hold off on repeat bcx for now. If patient becomes febrile > 101; plan to obtain repeat blood cultures. c/w abx for now will continue to monitor Original Note: Subjective - Date & Time of Evaluation Date of Evaluation: 07/16/18 Time of Evaluation: 07:10 - Subjective Subjective: Patient seen and examined this am at bedside. Viky cute events overnight per nursing. Patient remains confused but is not agitated. He is ioriented to self only. He denies any SAPP, f/c, chest pain, pain at the port site, SOB, abdominal pain and extremity pain. He reports passing gas and having BM. Objective - Vital Signs/Intake and Output Vital Signs (last 24 hours): Temp Pulse Resp BP Pulse Ox 99.4 F 90 20 130/64 97 07/16/18 00:05 07/16/18 00:05 07/16/18 00:05 07/16/18 00:05 07/16/18 00:05 Intake and Output: 07/16/18 07/16/18 06:59 18:59 Output Total 351 Balance -351 - Medications Medications: Current Medications Acetaminophen (Tylenol 325mg Tab) 650 mg PO Q6 PRN PRN Reason: Fever >100.4 F Last Admin: 07/12/18 12:46 Dose: 650 mg Bupropion HCl (Wellbutrin) 75 mg PO DAILY [facility] Last Admin: 07/15/18 11:14 Dose: Not Given Dextrose (Dextrose 50% Inj) 0 ml IV STAT PRN; Protocol PRN Reason: Hypoglycemia Protocol Dextrose (Glutose 15) 0 gm PO ONCE PRN; Protocol PRN Reason: Hypoglycemia Protocol Fentanyl (Duragesic) 1 patch TD Q3D [facility]; Protocol Last Admin: 07/15/18 13:22 Dose: 1 patch Ceftriaxone Sodium 2 gm/ (Sodium Chloride) 100 mls @ 100 mls/hr IVPB DAILY [facility]; Protocol Last Admin: 07/15/18 09:43 Dose: 100 mls/hr Potassium Chloride/Dextrose (Potassium Chl 20 Meq In D5w) 1,000 mls @ 100 mls/hr IV .Q10H [facility] Last Admin: 07/16/18 02:04 Dose: 100 mls/hr Lactulose (Enulose) 20 gm PO DAILY PRN PRN Reason: Constipation Last Admin: 07/09/18 09:14 Dose: 20 gm Lorazepam (Ativan) 0.5 mg IVP Q8 PRN PRN Reason: Agitation Last Admin: 07/10/18 04:56 Dose: 0.5 mg Magnesium Oxide (Mag-Ox) 400 mg PO BID [facility] Stop: 07/21/18 17:01 Last Admin: 07/15/18 17:10 Dose: Not Given Ondansetron HCl (Zofran Inj) 4 mg IVP Q6 PRN PRN Reason: Nausea/Vomiting Last Admin: 07/07/18 09:47 Dose: 4 mg Pantoprazole Sodium (Protonix Inj) 40 mg IVP DAILY [facility] Last Admin: 07/15/18 09:45 Dose: 40 mg Potassium Chloride (Potassium Chloride Oral Soln) 60 meq PO DAILY [facility] Last Admin: 07/15/18 11:13 Dose: Not Given Senna/Docusate Sodium (Senokot S 50 Mg-8.6 Mg) 1 tab PO HS [facility] Last Admin: 07/15/18 21:36 Dose: 1 tab Sodium Bicarbonate (Sodium Bicarbonate Tab) 650 mg PO BID [facility] Last Admin: 07/15/18 17:02 Dose: 650 mg Tamsulosin HCl (Flomax) 0.4 mg PO HS [facility] Last Admin: 07/15/18 21:36 Dose: 0.4 mg - Labs Labs: 07/15/18 05:45 07/15/18 05:45 - Constitutional Appears: Non-toxic, No Acute Distress, Cachectic, Chronically Ill - Head Exam Head Exam: ATRAUMATIC, NORMOCEPHALIC - Eye Exam Eye Exam: EOMI - ENT Exam ENT Exam: Mucous Membranes Moist - Respiratory Exam Respiratory Exam: NORMAL BREATHING PATTERN - Cardiovascular Exam Cardiovascular Exam: REGULAR RHYTHM - GI/Abdominal Exam GI & Abdominal Exam: Soft. absent: Distended, Guarding, Tenderness - Extremities Exam Extremities Exam: absent: Calf Tenderness, Pedal Edema - Neurological Exam Neurological Exam: Alert, Awake Additional comments: oriented only to self - Psychiatric Exam Psychiatric exam: Normal Affect, Normal Mood - Skin Skin Exam: Dry, Intact, Normal Color, Warm Additional comments: portacath site is cdi with no erythema, induration tenderness or edema Assessment and Plan - Assessment and Plan (Free Text) Assessment: 78 yr old male with positive Klebsiella culture form portacath and urine Plan: repeat port culture today with repeat peripheral cultures x 2 (separate sites) will f/u results c/w abx as per ID will d/w Dr. Flores, all further recs per her Carolina Can, PGY 1
--- NOTE | 2018-07-16 08:08 | CARD ---
APPROVED REPORT Date of service: 07/15/2018 EXAM: Two-dimensional and M-mode echocardiogram with Doppler and color Doppler. Other Information Quality : GoodRhythm : NSR INDICATION Infection:Subacute bacterial endocarditis 2D DIMENSIONS IVSd0.91 (0.7-1.1cm)LVDd3.96 (3.9-5.9cm) LVOT Diameter2.69 (1.8-2.4cm)PWd0.73 (0.7-1.1cm) IVSs1.21 (0.8-1.2cm)LVDs2.47 (2.5-4.0cm) FS (%) 37.6 %PWs0.93 (0.8-1.2cm) Aortic Valve AoV Peak Cblpvjvl006.6cm/sAoV VTI23.3cmAO Peak GR.7mmHg LVOT Peak Totzjrvr373.1cm/sLVOT VTI16.29cmAO Mean GR.3mmHg JENNI (VMAX)2.48hu1NTH (VTI)2.16cm2 Mitral Valve MV E Nycthgmp00.4cm/sMV DECEL IQDS147swOP A Bbyjrmzs07.8cm/s MV DAA84hbJ/A ratio0.9MVA (PHT)3.21cm2 TDI Lateral E' Peak V17.89cm/sMedial E' Peak V8.64cm/sE/Lateral E'2.8 E/Medial E'5.7 Tricuspid Valve TR Peak Hmzvjuhx595fz/sRAP RAXQZUCV65eyNwTF Peak Gr.26mmHg RELB25cxUl LEFT VENTRICLE The left ventricle is normal size. There is normal left ventricular wall thickness. The left ventricular systolic function is normal. The estimated ejection fraction is 55-60% No regional wall motion abnormalities noted.. Transmitral Doppler flow pattern is Grade I-abnormal relaxation pattern. No left ventricle thrombus noted on this study. There is no ventricular septal defect visualized. There is no left ventricular aneurysm. There is no mass noted in the left ventricle. RIGHT VENTRICLE The right ventricle is normal size. There is normal right ventricular wall thickness. The right ventricular systolic function is normal. ATRIA The left atrium size is normal. The right atrium size is normal. The interatrial septum is intact with no evidence for an atrial septal defect. AORTIC VALVE The aortic valve is normal in structure. No aortic regurgitation is present. There is no aortic valvular stenosis. There is no aortic valvular vegetation. MITRAL VALVE The mitral valve is normal in structure. There is no evidence of mitral valve prolapse. There is no mitral valve stenosis. There is mild mitral valve regurgitation noted. TRICUSPID VALVE The tricuspid valve is normal in structure. There is mild tricuspid valve regurgitation noted. RVSP is calculated at 35 mm Hg. There is no tricuspid valve prolapse or vegetation. There is no tricuspid valve stenosis. PULMONIC VALVE The pulmonary valve is normal in structure. There is no pulmonic valvular regurgitation. There is no pulmonic valvular stenosis. GREAT VESSELS The aortic root is normal in size. The ascending aorta is normal in size. The pulmonary artery is normal. The IVC is normal in size and collapses >50% with inspiration. PERICARDIAL EFFUSION There is no pericardial effusion. There is no pleural effusion. <Conclusion> The estimated ejection fraction is 55-60% Transmitral Doppler flow pattern is Grade I-abnormal relaxation pattern. The left atrium size is normal. There is mild mitral valve regurgitation noted. There is mild tricuspid valve regurgitation noted. RVSP is calculated at 35 mm Hg. No vegetations are noted. Correlate clinically.
[2018-07-16 08:31] LABS: BASO % 0.5 % (0.0-2.0); EOS # 0.2 K/uL (0.0-0.7); EOS % 3.8 % (0.0-4.0); HEMOGLOBIN 8.1 g/dL (12.0-18.0); LYMPH # 0.5 K/uL (1.0-4.3); LYMPH % 10.3 % (20.0-40.0); MEAN CELL VOLUME 93.1 fl (80.0-94.0); MEAN CORPUSCULAR HEMOGLOBIN 30.5 pg (27.0-31.0); MEAN CORPUSCULAR HGB CONC 32.7 g/dL (33.0-37.0); MEAN PLATELET VOLUME 7.5 fl (7.2-11.7); MONO # 0.3 K/uL (0.0-0.8); MONO % 6.1 % (0.0-10.0); NEUT # 3.5 K/uL (1.8-7.0); NEUT % 79.3 % (50.0-75.0); RBC 2.66 Mil/uL (4.40-5.90); RED CELL DISTRIBUTION WIDTH 19.7 % (11.5-14.5); WHITE BLOOD COUNT 4.4 K/uL (4.8-10.8)
[2018-07-16 08:49] LABS: ALB/GLOB RATIO 0.7 (1.0-2.1); ALBUMIN 2.4 g/dL (3.5-5.0); CALCIUM 7.8 mg/dL (8.4-10.2)
[2018-07-16] MEDS: Potassium Chloride 20 mEq/15 ml LIQ UD PO SCH (10:21)
[2018-07-16] MEDS: Magnesium Oxide 400 mg Tab UD PO SCH ×2 (10:21→17:00)
[2018-07-16] MEDS: cefTRIAXone 2 GM in Sodium Chloride 0.9% 100 ML IVPB SCH (10:30)
[2018-07-16] MEDS ORDERED: Povidone Iodine Topical 10% Sol ONE (13:08)
[2018-07-16 19:27] LABS: HEMOGLOBIN 8.7 g/dL (12.0-18.0); MEAN CELL VOLUME 96.5 fl (80.0-94.0); MEAN CORPUSCULAR HGB CONC 31.1 g/dL (33.0-37.0); RBC 2.9 Mil/uL (4.40-5.90); RED CELL DISTRIBUTION WIDTH 21.5 % (11.5-14.5); WHITE BLOOD COUNT 5.2 K/uL (4.8-10.8)
[2018-07-16] MEDS: Docusate-Senna 50 mg-8.6 mg Tab PO SCH ×2 (21:30→21:39)
--- NOTE | 2018-07-16 21:53 | CP.PCM.PN ---
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 monitor UOP lytes reviewed, continue fluids hypokalemia being replaced Hypertension control with meds as ordered. Physical Examination: General Appearance: in no acute respiratory distress, co-operative . ill and debilitated appearing, cachexic Vitals reviewed and noted as below Head; normocephalic. has left forehead bruise ENT: no ulcers no thrush. Tongue is midline. EYES: Eye muscles and extraocular movement intact. Sclera is anicteric. Neck; supple nno thyromegaly or bruit Lungs: Normal respiratory rate/effort. Breath sounds bilateral equal and clearer Heart: Normal rate. s1s2 normal. No rub or gallop. Extremities: no edema. No varicose veins Neurological: Patient is alert and more oriented. Skin: Warm and dry. Normal turgor. No rash Abdomen: Abdomen is soft. Bowel sounds +. There is no abdominal tenderness, no guarding/rigidity no organomegaly : has b/l nephrostomy tubes Objective - Vital Signs/Intake and Output Vital Signs (last 24 hours): Temp Pulse Resp BP Pulse Ox 97.8 F 94 H 18 138/71 100 07/16/18 16:02 07/16/18 16:02 07/16/18 16:02 07/16/18 16:02 07/16/18 16:02 Intake and Output: 07/16/18 07/17/18 18:59 05:59 Intake Total 1650 Output Total 650 Balance 1000 - Medications Medications: Current Medications Acetaminophen (Tylenol 325mg Tab) 650 mg PO Q6 PRN PRN Reason: Fever >100.4 F Last Admin: 07/12/18 12:46 Dose: 650 mg Bupropion HCl (Wellbutrin) 75 mg PO DAILY [facility] Last Admin: 07/16/18 10:23 Dose: 75 mg Dextrose (Dextrose 50% Inj) 0 ml IV STAT PRN; Protocol PRN Reason: Hypoglycemia Protocol Dextrose (Glutose 15) 0 gm PO ONCE PRN; Protocol PRN Reason: Hypoglycemia Protocol Enoxaparin Sodium (Lovenox) 40 mg SC DAILY [facility]; Protocol Fentanyl (Duragesic) 1 patch TD Q3D [facility]; Protocol Last Admin: 07/15/18 13:22 Dose: 1 patch Ceftriaxone Sodium 2 gm/ (Sodium Chloride) 100 mls @ 100 mls/hr IVPB DAILY [facility]; Protocol Last Admin: 07/16/18 10:30 Dose: 100 mls/hr Potassium Chloride/Dextrose (Potassium Chl 20 Meq In D5w) 1,000 mls @ 100 mls/hr IV .Q10H [facility] Last Admin: 07/16/18 02:04 Dose: 100 mls/hr Potassium Chloride/Dextrose (Potassium Chl 20 Meq In D5w) 1,000 mls @ 100 mls/hr IV .Q10H [facility] Stop: 07/17/18 13:55 Last Admin: 07/16/18 19:20 Dose: 100 mls/hr Lactulose (Enulose) 20 gm PO DAILY PRN PRN Reason: Constipation Last Admin: 07/09/18 09:14 Dose: 20 gm Lorazepam (Ativan) 0.5 mg IVP Q8 PRN PRN Reason: Agitation Last Admin: 07/10/18 04:56 Dose: 0.5 mg Magnesium Oxide (Mag-Ox) 400 mg PO BID [facility] Stop: 07/21/18 17:01 Last Admin: 07/16/18 17:00 Dose: Not Given Ondansetron HCl (Zofran Inj) 4 mg IVP Q6 PRN PRN Reason: Nausea/Vomiting Last Admin: 07/07/18 09:47 Dose: 4 mg Pantoprazole Sodium (Protonix Inj) 40 mg IVP DAILY [facility] Last Admin: 07/16/18 10:23 Dose: 40 mg Potassium Chloride (Potassium Chloride Oral Soln) 60 meq PO DAILY [facility] Last Admin: 07/16/18 10:21 Dose: 60 meq Senna/Docusate Sodium (Senokot S 50 Mg-8.6 Mg) 1 tab PO HS [facility] Last Admin: 07/16/18 21:39 Dose: Not Given Sodium Bicarbonate (Sodium Bicarbonate Tab) 650 mg PO BID [facility] Last Admin: 07/16/18 19:19 Dose: Not Given Tamsulosin HCl (Flomax) 0.4 mg PO HS [facility] Last Admin: 07/16/18 21:30 Dose: 0.4 mg - Labs Labs: 07/16/18 17:58 07/16/18 08:10
[2018-07-17] MEDS: Potassium Chl 20mEq & D5W 1,000 ML IV SCH ×7 (02:20→23:38)
[2018-07-17 07:33] LABS: BLOOD UREA NITROGEN 23 mg/dl (9-20); CALCIUM 7.7 mg/dL (8.4-10.2); GFR NON-AFRICAN AMERICAN 58; HEMOGLOBIN 8.7 g/dL (12.0-18.0); MEAN CORPUSCULAR HEMOGLOBIN 30.4 pg (27.0-31.0); MEAN CORPUSCULAR HGB CONC 32.2 g/dL (33.0-37.0); RBC 2.87 Mil/uL (4.40-5.90); RED CELL DISTRIBUTION WIDTH 20.2 % (11.5-14.5); WHITE BLOOD COUNT 4.7 K/uL (4.8-10.8)
[2018-07-17 07:46] LABS: MEAN CELL VOLUME 94.4 fl (80.0-94.0)
--- NOTE | 2018-07-17 08:02 | CP.PCM.PN ---
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 Patient denies any pain, denies any nausea, or vomiting, States he is doing better today. He is currently on a 1:1. Afebrile overnight according to the nurse. No acute events overnight. Objective - Vital Signs/Intake and Output Vital Signs (last 24 hours): Temp Pulse Resp BP Pulse Ox 97.3 F L 82 19 119/66 98 07/17/18 07:59 07/17/18 07:59 07/17/18 07:59 07/17/18 07:59 07/17/18 07:59 Intake and Output: 07/17/18 07/17/18 06:59 18:59 Output Total 550 Balance -550 - Medications Medications: Current Medications Acetaminophen (Tylenol 325mg Tab) 650 mg PO Q6 PRN PRN Reason: Fever >100.4 F Last Admin: 07/12/18 12:46 Dose: 650 mg Bupropion HCl (Wellbutrin) 75 mg PO DAILY [facility] Last Admin: 07/16/18 10:23 Dose: 75 mg Dextrose (Dextrose 50% Inj) 0 ml IV STAT [facility]; Protocol PRN Reason: Hypoglycemia Protocol Dextrose (Glutose 15) 0 gm PO ONCE [facility]; Protocol PRN Reason: Hypoglycemia Protocol Enoxaparin Sodium (Lovenox) 40 mg SC DAILY [facility]; Protocol Fentanyl (Duragesic) 1 patch TD Q3D [facility]; Protocol Last Admin: 07/15/18 13:22 Dose: 1 patch Ceftriaxone Sodium 2 gm/ (Sodium Chloride) 100 mls @ 100 mls/hr IVPB DAILY [facility]; Protocol Last Admin: 07/16/18 10:30 Dose: 100 mls/hr Potassium Chloride/Dextrose (Potassium Chl 20 Meq In D5w) 1,000 mls @ 100 mls/hr IV .Q10H [facility] Last Admin: 07/17/18 07:03 Dose: Not Given Potassium Chloride/Dextrose (Potassium Chl 20 Meq In D5w) 1,000 mls @ 100 mls/hr IV .Q10H [facility] Stop: 07/17/18 13:55 Last Admin: 07/17/18 00:00 Dose: Not Given Lactulose (Enulose) 20 gm PO DAILY PRN PRN Reason: Constipation Last Admin: 07/09/18 09:14 Dose: 20 gm Lorazepam (Ativan) 0.5 mg IVP Q8 PRN PRN Reason: Agitation Last Admin: 07/10/18 04:56 Dose: 0.5 mg Magnesium Oxide (Mag-Ox) 400 mg PO BID [facility] Stop: 07/21/18 17:01 Last Admin: 07/16/18 17:00 Dose: Not Given Ondansetron HCl (Zofran Inj) 4 mg IVP Q6 PRN PRN Reason: Nausea/Vomiting Last Admin: 07/07/18 09:47 Dose: 4 mg Pantoprazole Sodium (Protonix Inj) 40 mg IVP DAILY [facility] Last Admin: 07/16/18 10:23 Dose: 40 mg Potassium Chloride (Potassium Chloride Oral Soln) 60 meq PO DAILY [facility] Last Admin: 07/16/18 10:21 Dose: 60 meq Senna/Docusate Sodium (Senokot S 50 Mg-8.6 Mg) [address] [facility] Last Admin: 07/16/18 21:39 Dose: Not Given Sodium Bicarbonate (Sodium Bicarbonate Tab) 650 mg PO BID [facility] Last Admin: 07/16/18 19:19 Dose: Not Given Tamsulosin HCl (Flomax) 0.4 mg PO HS [facility] Last Admin: 07/16/18 21:30 Dose: 0.4 mg - Labs Labs: 07/17/18 05:30 07/17/18 05:30 - Constitutional Appears: Non-toxic, No Acute Distress - Head Exam Head Exam: ATRAUMATIC - Respiratory Exam Respiratory Exam: Clear to Ausculation Bilateral, NORMAL BREATHING PATTERN - Cardiovascular Exam Cardiovascular Exam: REGULAR RHYTHM, +S1, +S2 Additional comments: Portacath site no tenderness, no erythema, no signs of infection - GI/Abdominal Exam GI & Abdominal Exam: Soft. absent: Firm, Guarding, Rigid, Tenderness, Rebound - Back Exam Additional comments: left nephrostomy tube in place - Neurological Exam Neurological Exam: Awake - Skin Skin Exam: Dry, Intact, Normal Color, Warm Assessment and Plan - Assessment and Plan (Free Text) Assessment: 78M with UTI and resolving sepsis. Infectious process unlikely from portacath Plan: - Monitor vitals - Follow up blood cultures - Monitor portacath site Discussed with Dr. Mark Costa, PGY3
[2018-07-17] MEDS: Magnesium Oxide 400 mg Tab UD PO SCH ×4 (09:00→18:19)
[2018-07-17] MEDS: Enoxaparin 40 mg Syringe SC SCH (10:18)
[2018-07-17] MEDS: Potassium Chloride 20 mEq/15 ml LIQ UD PO SCH ×2 (10:20→21:24)
[2018-07-17] MEDS: cefTRIAXone 2 GM in Sodium Chloride 0.9% 100 ML IVPB SCH (10:21)
--- NOTE | 2018-07-17 12:18 | PN ---
DATE: 07/17/2018 SUBJECTIVE: The patient seen and examined. Interim events noted. Consults noted and appreciated. Nephrology followup and intervention noted and appreciated. The patient remains in regular medical floor, sleeping, arousable. Feels okay. Still gets pain. 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 The patient denies any new chest pain or shortness of breath. PHYSICAL EXAMINATION: GENERAL: The patient is in no acute distress, although the patient is chronically sick-looking elderly male. VITAL SIGNS: Stable. HEART: S1 and S2. Normal and regular. LUNGS: Good bilateral air exchange. ABDOMEN: Soft and nontender. EXTREMITIES: No edema. No calf swelling. No tenderness , but may be the patient's pain is marked by narcotic pain medication. No sign of distal neurovascular compromise. CENTRAL NERVOUS SYSTEM: Essentially unchanged. DIAGNOSTIC DATA: Available diagnostic data reviewed. ASSESSMENT AND PLAN: Overall, the patient's general medical condition is stable. Plan as ordered. half-way prognosis remains poor. Vinay Henderson MD
--- NOTE | 2018-07-17 21:09 | CP.PCM.PN ---
Subjective - Date & Time of Evaluation Date of Evaluation: 07/16/18 Time of Evaluation: 16:00 - Subjective Subjective: Nursing reports blood bowel movement for repeat CBC found to have LE DVT Objective - Vital Signs/Intake and Output Vital Signs (last 24 hours): Temp Pulse Resp BP Pulse Ox 99.7 F H 96 H 18 132/57 L 97 07/17/18 17:36 07/17/18 17:36 07/17/18 17:36 07/17/18 17:36 07/17/18 17:36 Intake and Output: 07/17/18 07/18/18 18:59 06:59 Intake Total 1350 Output Total 1200 Balance 150 - Medications Medications: Current Medications Acetaminophen (Tylenol 325mg Tab) 650 mg PO Q6 PRN PRN Reason: Fever >100.4 F Last Admin: 07/12/18 12:46 Dose: 650 mg Bupropion HCl (Wellbutrin) 75 mg PO DAILY [facility] Last Admin: 07/17/18 19:33 Dose: Not Given Dextrose (Dextrose 50% Inj) 0 ml IV STAT PRN; Protocol PRN Reason: Hypoglycemia Protocol Dextrose (Glutose 15) 0 gm PO ONCE PRN; Protocol PRN Reason: Hypoglycemia Protocol Enoxaparin Sodium (Lovenox) 40 mg SC DAILY MIKE; Protocol Last Admin: 07/17/18 10:18 Dose: 40 mg Fentanyl (Duragesic) 1 patch TD Q3D MIKE; Protocol Last Admin: 07/15/18 13:22 Dose: 1 patch Ceftriaxone Sodium 2 gm/ (Sodium Chloride) 100 mls @ 100 mls/hr IVPB DAILY [facility]KE; Protocol Last Admin: 07/17/18 10:21 Dose: 100 mls/hr Potassium Chloride/Dextrose (Potassium Chl 20 Meq In D5w) 1,000 mls @ 100 mls/hr IV .Q10H MIKE Last Admin: 07/17/18 10:19 Dose: 100 mls/hr Lactulose (Enulose) 20 gm PO DAILY PRN PRN Reason: Constipation Last Admin: 07/09/18 09:14 Dose: 20 gm Lorazepam (Ativan) 0.5 mg IVP Q8 PRN PRN Reason: Agitation Last Admin: 07/10/18 04:56 Dose: 0.5 mg Magnesium Oxide (Mag-Ox) 400 mg PO BID [facility] Stop: 07/21/18 17:01 Last Admin: 07/17/18 18:19 Dose: 400 mg Ondansetron HCl (Zofran Inj) 4 mg IVP Q6 PRN PRN Reason: Nausea/Vomiting Last Admin: 07/07/18 09:47 Dose: 4 mg Pantoprazole Sodium (Protonix Inj) 40 mg IVP DAILY [facility] Last Admin: 07/17/18 10:20 Dose: 40 mg Potassium Chloride (Potassium Chloride Oral Soln) 60 meq PO DAILY [facility] Last Admin: 07/17/18 10:20 Dose: 60 meq Senna/Docusate Sodium (Senokot S 50 Mg-8.6 Mg) 1 tab PO [facility] Last Admin: 07/16/18 21:39 Dose: Not Given Sodium Bicarbonate (Sodium Bicarbonate Tab) 650 mg PO BID [facility] Last Admin: 07/17/18 10:21 Dose: 650 mg Tamsulosin HCl (Flomax) 0.4 mg PO [facility] Last Admin: 07/16/18 21:30 Dose: 0.4 mg - Labs Labs: 07/17/18 05:30 07/17/18 05:30 - Head Exam Head Exam: ATRAUMATIC - Eye Exam Eye Exam: Normal appearance - ENT Exam ENT Exam: Mucous Membranes Dry - Respiratory Exam Respiratory Exam: NORMAL BREATHING PATTERN - Cardiovascular Exam Cardiovascular Exam: +S1, +S2 - GI/Abdominal Exam GI & Abdominal Exam: Normal Bowel Sounds - Extremities Exam Extremities Exam: Pedal Edema Assessment and Plan (1) DVT (deep venous thrombosis) Assessment & Plan: provoked from malignancy repeat CBC shows stable H/H despite blood bowel movement as reported by nursing will restart on lovenox prophylaxis and observe H/H if cont. to have GI bleeding, will need IVC filter and no further anticoagulation Status: Acute (2) Anemia Assessment & Plan: chronic disease new GI blood loss repeat CBC Status: Acute (3) Bladder cancer Assessment & Plan: stage IV off chemotherapy for several months s/p palliative radiotherapy pt and family considering code status deferred hospice in the past Status: Chronic
[2018-07-17] MEDS: Docusate-Senna 50 mg-8.6 mg Tab PO SCH (22:15)
[2018-07-18] MEDS: Potassium Chl 20mEq & D5W 1,000 ML IV SCH ×2 (02:30→23:38)
--- NOTE | 2018-07-18 07:54 | CP.PCM.PN ---
Subjective - Date & Time of Evaluation Date of Evaluation: 07/18/18 Time of Evaluation: 07:43 - Subjective Subjective: Surgery: Dr. Flores Pt seen and examined. Agitated overnight. Currently resting comfortably in bed. Objective - Vital Signs/Intake and Output Vital Signs (last 24 hours): Temp Pulse Resp BP Pulse Ox 98.3 F 114 H 19 118/59 L 97 07/18/18 00:29 07/18/18 00:29 07/18/18 00:29 07/18/18 00:29 07/18/18 00:29 Intake and Output: 07/18/18 07/18/18 06:59 18:59 Output Total 470 Balance -470 - Medications Medications: Current Medications Acetaminophen (Tylenol 325mg Tab) 650 mg PO Q6 PRN PRN Reason: Fever >100.4 F Last Admin: 07/12/18 12:46 Dose: 650 mg Acetaminophen (Tylenol 325mg Tab) 325 mg PO Q6 PRN PRN Reason: Pain, Mild (1-3) Alprazolam (Xanax) 0.25 mg PO Q6 PRN PRN Reason: Anxiety Stop: 07/25/18 04:01 Last Admin: 07/17/18 23:38 Dose: 0.25 mg Bupropion HCl (Wellbutrin) 75 mg PO DAILY [facility] Last Admin: 07/17/18 19:33 Dose: Not Given Dextrose (Dextrose 50% Inj) 0 ml IV STAT PRN; Protocol PRN Reason: Hypoglycemia Protocol Dextrose (Glutose 15) 0 gm PO ONCE PRN; Protocol PRN Reason: Hypoglycemia Protocol Enoxaparin Sodium (Lovenox) 40 mg SC DAILY [facility]KE; Protocol Last Admin: 07/17/18 10:18 Dose: 40 mg Fentanyl (Duragesic) 1 patch TD Q3D [facility]KE; Protocol Last Admin: 07/15/18 13:22 Dose: 1 patch Ceftriaxone Sodium 2 gm/ (Sodium Chloride) 100 mls @ 100 mls/hr IVPB DAILY [facility]; Protocol Last Admin: 07/17/18 10:21 Dose: 100 mls/hr Potassium Chloride/Dextrose (Potassium Chl 20 Meq In D5w) 1,000 mls @ 100 mls/hr IV .Q10H [facility] Last Admin: 07/18/18 02:30 Dose: Not Given Lactulose (Enulose) 20 gm PO DAILY PRN PRN Reason: Constipation Last Admin: 07/09/18 09:14 Dose: 20 gm Lorazepam (Ativan) 0.5 mg IVP Q8 PRN PRN Reason: Agitation Last Admin: 07/10/18 04:56 Dose: 0.5 mg Magnesium Oxide (Mag-Ox) 400 mg PO BID [facility] Stop: 07/21/18 17:01 Last Admin: 07/17/18 17:00 Dose: Not Given Ondansetron HCl (Zofran Inj) 4 mg IVP Q6 PRN PRN Reason: Nausea/Vomiting Last Admin: 07/07/18 09:47 Dose: 4 mg Pantoprazole Sodium (Protonix Inj) 40 mg IVP DAILY [facility] Last Admin: 07/17/18 10:20 Dose: 40 mg Potassium Chloride (Potassium Chloride Oral Soln) 60 meq PO DAILY [facility] Last Admin: 07/17/18 21:24 Dose: Not Given Senna/Docusate Sodium (Senokot S 50 Mg-8.6 Mg) 1 tab PO [facility] Last Admin: 07/17/18 22:15 Dose: Not Given Sodium Bicarbonate (Sodium Bicarbonate Tab) 650 mg PO BID [facility] Last Admin: 07/17/18 17:00 Dose: Not Given Tamsulosin HCl (Flomax) 0.4 mg PO HS [facility] Last Admin: 07/17/18 21:44 Dose: 0.4 mg - Labs Labs: 07/17/18 05:30 07/17/18 05:30 - Constitutional Appears: Non-toxic, No Acute Distress - Head Exam Head Exam: ATRAUMATIC, NORMOCEPHALIC - Eye Exam Eye Exam: EOMI - ENT Exam ENT Exam: Mucous Membranes Moist - Respiratory Exam Respiratory Exam: NORMAL BREATHING PATTERN. absent: Accessory Muscle Use, R espiratory Distress - GI/Abdominal Exam GI & Abdominal Exam: Soft. absent: Distended, Firm, Guarding, Rigid, Tenderness, Rebound - Extremities Exam Extremities Exam: absent: Calf Tenderness, Pedal Edema - Neurological Exam Neurological Exam: Alert Assessment and Plan - Assessment and Plan (Free Text) Assessment: 78M w. sepsis likely 2/2 UTI -F/U repeat blood cx, prelim currently shows no growth to date -Decision to remove portacath pending final results -d/w attending Jelenaitis PGY4
--- NOTE | 2018-07-18 09:09 | PN ---
DATE: 07/16/2018 SUBJECTIVE: The patient seen and examined. Interim events noted. The patient remains in medical floor. Consults noted and appreciated. The patient is sleeping, arousable. Feels okay. Denies any associated pain. The patient does request pain medication on schedule. No new pain. Nursing staff reported nephrostomy tube on the left side leaking around, is able to flush, but leaks around the tube. PHYSICAL EXAMINATION: GENERAL: The patient is in no acute distress. VITAL SIGNS: Stable. HEART: S1 and S2, normal and regular. LUNGS: Good bilateral air exchange. ABDOMEN: Soft, nontender. At this time, nephrostomy tubes are in good position and functioning. Does not seem to have any complication. EXTREMITIES: Right lower extremity maybe slightly edematous, but it probably is because of the patient's positioning. No calf swelling or tenderness. No acute ischemia. LOCK SETTER: Exam is essentially unchanged. DIAGNOSTIC DATA: Available diagnostic data reviewed. ASSESSMENT AND PLAN: Overall, the patient's general medical condition is stable. Plan as ordered. Vinay Henderson MD
[2018-07-18] MEDS: Enoxaparin 40 mg Syringe SC SCH (09:26)
[2018-07-18] MEDS: cefTRIAXone 2 GM in Sodium Chloride 0.9% 100 ML IVPB SCH (09:27)
--- NOTE | 2018-07-18 10:28 | CP.PCM.PN ---
Subjective - Date & Time of Evaluation Date of Evaluation: 07/18/18 Time of Evaluation: 10:28 - Subjective Subjective: ID Note- no new events.\ pt. awake but remains weak, Objective - Vital Signs/Intake and Output Vital Signs (last 24 hours): Temp Pulse Resp BP Pulse Ox 97.7 F 103 H 19 145/70 98 07/18/18 08:14 07/18/18 08:14 07/18/18 08:14 07/18/18 08:14 07/18/18 08:14 Intake and Output: 07/18/18 07/18/18 06:59 18:59 Output Total 470 Balance -470 - Medications Medications: Current Medications Acetaminophen (Tylenol 325mg Tab) 650 mg PO Q6 PRN PRN Reason: Fever >100.4 F Last Admin: 07/12/18 12:46 Dose: 650 mg Acetaminophen (Tylenol 325mg Tab) 325 mg PO Q6 PRN PRN Reason: Pain, Mild (1-3) Alprazolam (Xanax) 0.25 mg PO Q6 PRN PRN Reason: Anxiety Stop: 07/25/18 04:01 Last Admin: 07/17/18 23:38 Dose: 0.25 mg Bupropion HCl (Wellbutrin) 75 mg PO DAILY [facility] Last Admin: 07/17/18 19:33 Dose: Not Given Dextrose (Dextrose 50% Inj) 0 ml IV STAT PRN; Protocol PRN Reason: Hypoglycemia Protocol Dextrose (Glutose 15) 0 gm PO ONCE PRN; Protocol PRN Reason: Hypoglycemia Protocol Enoxaparin Sodium (Lovenox) 40 mg SC DAILY [facility]; Protocol Last Admin: 07/18/18 09:26 Dose: 40 mg Fentanyl (Duragesic) 1 patch TD Q3D [facility]; Protocol Last Admin: 07/15/18 13:22 Dose: 1 patch Ceftriaxone Sodium 2 gm/ (Sodium Chloride) 100 mls @ 100 mls/hr IVPB DAILY [facility]; Protocol Last Admin: 07/18/18 09:27 Dose: 100 mls/hr Potassium Chloride/Dextrose (Potassium Chl 20 Meq In D5w) 1,000 mls @ 100 mls/hr IV .Q10H [facility] Last Admin: 07/18/18 02:30 Dose: Not Given Lactulose (Enulose) 20 gm PO DAILY PRN PRN Reason: Constipation Last Admin: 07/09/18 09:14 Dose: 20 gm Lorazepam (Ativan) 0.5 mg IVP Q8 PRN PRN Reason: Agitation Last Admin: 07/10/18 04:56 Dose: 0.5 mg Magnesium Oxide (Mag-Ox) 400 mg PO BID [facility] Stop: 07/21/18 17:01 Last Admin: 07/17/18 17:00 Dose: Not Given Ondansetron HCl (Zofran Inj) 4 mg IVP Q6 PRN PRN Reason: Nausea/Vomiting Last Admin: 07/07/18 09:47 Dose: 4 mg Pantoprazole Sodium (Protonix Inj) 40 mg IVP DAILY [facility] Last Admin: 07/18/18 09:27 Dose: 40 mg Potassium Chloride (Potassium Chloride Oral Soln) 60 meq PO DAILY [facility] Last Admin: 07/17/18 21:24 Dose: Not Given Senna/Docusate Sodium (Senokot S 50 Mg-8.6 Mg) 1 tab PO [facility] Last Admin: 07/17/18 22:15 Dose: Not Given Sodium Bicarbonate (Sodium Bicarbonate Tab) 650 mg PO BID [facility] Last Admin: 07/17/18 17:00 Dose: Not Given Tamsulosin HCl (Flomax) 0.4 mg PO [facility] Last Admin: 07/17/18 21:44 Dose: 0.4 mg - Labs Labs: - Additional Findings Additional findings: - Constitutional Appears: No Acute Distress - Head Exam Head Exam: ATRAUMATIC - Eye Exam Eye Exam: EOMI, PERRL - ENT Exam ENT Exam: Normal Oropharynx - Neck Exam Neck exam: Positive for: Full Rom - Respiratory Exam Respiratory Exam: Clear to Auscultation Bilateral, NORMAL BREATHING PATTERN - Cardiovascular Exam Cardiovascular Exam: RRR, +S1, +S2 - GI/Abdominal Exam GI & Abdominal Exam: Normal Bowel Sounds, Soft Additional comments: NT, ND - Extremities Exam Extremities exam: Positive for: normal inspection - Back Exam Additional comments: b/l nephrostomy tubes in place, no surrounding erythema urine in bag clear b/l - Neurological Exam Neurological exam: agitated today skin- has small stage 1 sacral skin breakage, no discharge no surrounding erythema Laboratory Results - last 72 hr 07/15/18 07/16/18 07/16/18 21:18 05:14 08:10 WBC 4.4 L RBC 2.66 L Hgb 8.1 L Hct 24.8 L MCV 93.1 MCH 30.5 MCHC 32.7 L RDW 19.7 H Plt Count 119 L D MPV 7.5 Neut % (Auto) 79.3 H Lymph % (Auto) 10.3 L [place] % (Auto) 6.1 Eos % (Auto) 3.8 Baso % (Auto) 0.5 Neut # (Auto) 3.5 Lymph # (Auto) 0.5 L [place] # (Auto) 0.3 Eos # (Auto) 0.2 Baso # (Auto) 0.0 Sodium Potassium Chloride Carbon Dioxide Anion Gap BUN Creatinine Est GFR ( Amer) Est GFR (Non-Af Amer) POC Glucose (mg/dL) 132 H 156 H Random Glucose Calcium Phosphorus Magnesium Total Bilirubin AST ALT Alkaline Phosphatase Total Protein Albumin Globulin Albumin/Globulin Ratio 07/16/18 07/16/18 07/16/18 08:10 10:56 16:36 WBC RBC Hgb Hct MCV MCH MCHC RDW Plt Count MPV Neut % (Auto) Lymph % (Auto) [place] % (Auto) Eos % (Auto) Baso % (Auto) Neut # (Auto) Lymph # (Auto) [place] # (Auto) Eos # (Auto) Baso # (Auto) Sodium 148 Potassium 3.4 L Chloride 122 H Carbon Dioxide 21 L Anion Gap 8 L BUN 24 H Creatinine 1.4 Est GFR ( Amer) 59 Est GFR (Non-Af Amer) 49 POC Glucose (mg/dL) 167 H 107 Random Glucose 128 H Calcium 7.8 L Phosphorus 2.8 Magnesium 1.3 L Total Bilirubin 0.6 AST 64 H ALT 40 Alkaline Phosphatase 533 H Total Protein 6.0 L Albumin 2.4 L Globulin 3.6 Albumin/Globulin Ratio 0.7 L 07/16/18 07/16/18 07/17/18 17:58 21:27 05:09 WBC 5.2 RBC 2.90 L Hgb 8.7 L Hct 28.0 L MCV 96.5 H D MCH 30.0 MCHC 31.1 L RDW 21.5 H Plt Count 135 MPV Neut % (Auto) Lymph % (Auto) [place] % (Auto) Eos % (Auto) Baso % (Auto) Neut # (Auto) Lymph # (Auto) [place] # (Auto) Eos # (Auto) Baso # (Auto) Sodium Potassium Chloride Carbon Dioxide Anion Gap BUN Creatinine Est GFR ( Amer) Est GFR (Non-Af Amer) POC Glucose (mg/dL) 160 H 124 H Random Glucose Calcium Phosphorus Magnesium Total Bilirubin AST ALT Alkaline Phosphatase Total Protein Albumin Globulin Albumin/Globulin Ratio 07/17/18 07/17/18 07/17/18 05:30 05:30 10:35 WBC 4.7 L RBC 2.87 L Hgb 8.7 L Hct 27.1 L MCV 94.4 H D MCH 30.4 MCHC 32.2 L RDW 20.2 H Plt Count 123 L MPV Neut % (Auto) Lymph % (Auto) [place] % (Auto) Eos % (Auto) Baso % (Auto) Neut # (Auto) Lymph # (Auto) [place] # (Auto) Eos # (Auto) Baso # (Auto) Sodium 143 Potassium 3.8 Chloride 117 H Carbon Dioxide 20 L Anion Gap 10 BUN 23 H Creatinine 1.2 Est GFR ( Amer) > 60 Est GFR (Non-Af Amer) 58 POC Glucose (mg/dL) 125 H Random Glucose 118 H Calcium 7.7 L Phosphorus Magnesium Total Bilirubin AST ALT Alkaline Phosphatase Total Protein Albumin Globulin Albumin/Globulin Ratio 07/17/18 07/17/18 07/18/18 16:42 21:25 05:38 WBC RBC Hgb Hct MCV MCH MCHC RDW Plt Count MPV Neut % (Auto) Lymph % (Auto) [place] % (Auto) Eos % (Auto) Baso % (Auto) Neut # (Auto) Lymph # (Auto) [place] # (Auto) Eos # (Auto) Baso # (Auto) Sodium Potassium Chloride Carbon Dioxide Anion Gap BUN Creatinine Est GFR ( Amer) Est GFR (Non-Af Amer) POC Glucose (mg/dL) 111 H 114 H 103 Random Glucose Calcium Phosphorus Magnesium Total Bilirubin AST ALT Alkaline Phosphatase Total Protein Albumin Globulin Albumin/Globulin Ratio 07/18/18 07/18/18 11:01 15:55 WBC RBC Hgb Hct MCV MCH MCHC RDW Plt Count MPV Neut % (Auto) Lymph % (Auto) [place] % (Auto) Eos % (Auto) Baso % (Auto) Neut # (Auto) Lymph # (Auto) [place] # (Auto) Eos # (Auto) Baso # (Auto) Sodium Potassium Chloride Carbon Dioxide Anion Gap BUN Creatinine Est GFR ( Amer) Est GFR (Non-Af Amer) POC Glucose (mg/dL) 102 89 Random Glucose Calcium Phosphorus Magnesium Total Bilirubin AST ALT Alkaline Phosphatase Total Protein Albumin Globulin Albumin/Globulin Ratio Microbiology 07/15/18 15:03 Blood-Venous Blood Culture - Preliminary NO GROWTH AFTER 3 DAYS 07/15/18 14:56 Blood-Venous Blood Culture - Preliminary NO GROWTH AFTER 3 DAYS 07/16/18 11:19 Blood-Thru Central Line Blood Culture - Preliminary NO GROWTH AFTER 48 HOURS 07/16/18 08:00 Blood-Venous Blood Culture - Preliminary NO GROWTH AFTER 48 HOURS 07/16/18 08:41 Blood-Thru Central Line Blood Culture - Preliminary NO GROWTH AFTER 48 HOURS 07/13/18 12:32 Blood-Thru Central Line Blood Culture - Final Klebsiella Pneumoniae Ssp Pneu 07/13/18 12:32 Blood-Thru Central Line Gram Stain - Final 07/12/18 18:44 Urine,Veliz Urine Culture - Final Klebsiella Pneumoniae Ssp Pneu 07/11/18 12:32 Blood Blood Culture - Final Klebsiella Pneumoniae Ssp Pneu 07/11/18 12:32 Blood Gram Stain - Final 07/11/18 12:32 Blood Blood Culture - Final Klebsiella Pneumoniae Ssp Pneu 07/11/18 12:32 Blood Gram Stain - Final Accession No. : [id number] Patient Name / ID : GWENDOLYN BLANCA / [id number] Exam Date : 07/18/2018 14:27:35 ( Approved ) Study Comment : Sex / Age : M / 78Y Creator : Quentin Rodríguez MD Dictator : Quentin Rodríguez MD Irrigation Technician : Team Physician : Quentin Rodríguez MD Approver2 : Report Date : 07/18/2018 15:18:06 My Comment : Date of service: 07/18/2018 PROCEDURE: CT Abdomen and Pelvis without intravenous contrast HISTORY: Check position of b/l nephrostomy tubes COMPARISON: Comparison is made with 05/22/2018 TECHNIQUE: Axial and reformatted coronal and sagittal CT images of the abdomen and pelvis were obtained without IV or oral contrast administration.. Contrast dose: 0 Radiation dose: Total exam DLP = 409.17 mGy-cm. This CT exam was performed using one or more of the following dose reduction techniques: Automated exposure control, adjustment of the mA and/or kV according to patient size, and/or use of iterative reconstruction technique. FINDINGS: LOWER THORAX: Moderate to mildly severe emphysematous changes and cystic formation noted at the lung bases. There is a small left pleural effusion. LIVER: No significant interval change is noted in the liver. GALLBLADDER AND BILE DUCTS: No evidence of radiodense gallstones or acute cholecystitis. PANCREAS: Limited assessment of the pancreas without IV contrast administration. The pancreas is small in size. SPLEEN: The spleen is mildly enlarged. ADRENALS: No significant interval change in the adrenal glands noted since the previous exam. KIDNEYS AND URETERS: Interval appearance of moderate left hydronephrosis since the previous exam. There is a interval displacement of the left percutaneous nephrostomy tube which is seen extending to the lower pole of the left kidney. No significant interval change in the right kidney and the position of the right percutaneous nephrostomy tube. VASCULATURE: Unremarkable. No aortic aneurysm. No aortic atherosclerotic calcification or mural plaque present. BOWEL: No significant interval changes noted in the GI system since the previous exam. APPENDIX: No evidence of appendicitis. PERITONEUM: Mild to moderate diffuse edema noted. Trace free fluid in the abdomen and pelvis noted. LYMPH NODES: Large conglomerate retroperitoneal and pelvic lymphadenopathy are again noted. BLADDER: Soft tissue mass and wall thickening of the urinary bladder is again noted consistent with the patient's known history of bladder cancer. REPRODUCTIVE: The prostate is moderately to markedly enlarged. BONES: Diffuse sclerotic and lytic bony lesion noted in the skeleton consistent with widespread osseous metastasis. OTHER FINDINGS: Diffuse [id number] anasarca. IMPRESSION: Suspicious for interval displacement of the left percutaneous nephrostomy tube which resulting in moderate left hydronephrosis. Interval appearance of small left pleural effusion. Otherwise no significant interval changes since the prior study dated 05/22/2018 as discussed above. Assessment and Plan (1) Malignant neoplasm metastatic from bladder Status: Acute (2) Obstructive uropathy Status: Acute (3) Bacteremia Status: Acute - Assessment and Plan (Free Text) Assessment: A/P- 78 year old male with stage 4 bladder cancer with bony mets and obstructive uropathy s/p TURBT and b/l nephrostomy tubes since 11/2017 s/p multiple hospitalizations and multiorganisms UTIs all treated in the past admissions s/p twice nephrostomy tube changes with most recent one in 06/08/2018 . afebrile past 4 days. no leukocytosis blood cx were reported as klebsiella pneumonia in both blood cx from 07/11/2018 last UA- + LE but negative for any nitrates urine cx 07/11/2018- K.pneumonia as well repeat blood cx from port 07/13/2018- K.pneumonia repeat blood cx from 07/15/2018 and 07/16/2018 from both port and from peripheral are all negative x 5 CXR- negative as per report. abd CT report noted flu test -neg TTE- no vegetations as per report. plan- continue with IV ceftriaxone fro e.coli bacteremi and UTI treatment day #5. needs total of 14 days of IV antibiotic for this treatment. left nephrostomy tube ? dislodgement as per CT report needs to be addressed by or IR. since all repeat blood cx so far both from port and peripheral are negative, no urgent need to d/c the port but if he spikes temp again or any other pos blood cx then the port would need to be removed.
--- NOTE | 2018-07-18 14:14 | US ---
Date of service: 07/16/2018 PROCEDURE: Bilateral lower extremity venous duplex Doppler. HISTORY: R/O DVT Right leg COMPARISON: Comparison is made to the previous study dated 04/17/2018 TECHNIQUE: Bilateral common femoral, superficial femoral, popliteal and posterior tibial veins were evaluated. Flow was assessed with color Doppler, compressibility, assessment of phasic flow and augmentation response. FINDINGS: COMMON FEMORAL VEIN: Right CFV: There is thrombosed noted in the right common femoral vein associated with incomplete compressibility suggestive of DVT. Left CFV: Unremarkable. SUPERFICIAL FEMORAL VEIN: Right SFV: Unremarkable. Left SFV: Unremarkable. POPLITEAL VEIN: Right Popliteal: Unremarkable. Left Popliteal: Unremarkable. POSTERIOR TIBIAL VEIN: Right PTV: Unremarkable. Left PTV: Unremarkable. OTHER FINDINGS: None. IMPRESSION: Findings compatible with acute DVT in the right common femoral vein. Preliminary report contains concordant findings was submitted to the referring physicianby [facility] [place] radiology
--- NOTE | 2018-07-18 15:24 | CT ---
Date of service: 07/18/2018 PROCEDURE: CT Abdomen and Pelvis without intravenous contrast HISTORY: Check position of b/l nephrostomy tubes COMPARISON: Comparison is made with 05/22/2018 TECHNIQUE: Axial and reformatted coronal and sagittal CT images of the abdomen and pelvis were obtained without IV or oral contrast administration.. Contrast dose: 0 Radiation dose: Total exam DLP = 409.17 mGy-cm. This CT exam was performed using one or more of the following dose reduction techniques: Automated exposure control, adjustment of the mA and/or kV according to patient size, and/or use of iterative reconstruction technique. FINDINGS: LOWER THORAX: Moderate to mildly severe emphysematous changes and cystic formation noted at the lung bases. There is a small left pleural effusion. LIVER: No significant interval change is noted in the liver. GALLBLADDER AND BILE DUCTS: No evidence of radiodense gallstones or acute cholecystitis. PANCREAS: Limited assessment of the pancreas without IV contrast administration. The pancreas is small in size. SPLEEN: The spleen is mildly enlarged. ADRENALS: No significant interval change in the adrenal glands noted since the previous exam. KIDNEYS AND URETERS: Interval appearance of moderate left hydronephrosis since the previous exam. There is a interval displacement of the left percutaneous nephrostomy tube which is seen extending to the lower pole of the left kidney. No significant interval change in the right kidney and the position of the right percutaneous nephrostomy tube. VASCULATURE: Unremarkable. No aortic aneurysm. No aortic atherosclerotic calcification or mural plaque present. BOWEL: No significant interval changes noted in the GI system since the previous exam. APPENDIX: No evidence of appendicitis. PERITONEUM: Mild to moderate diffuse edema noted. Trace free fluid in the abdomen and pelvis noted. LYMPH NODES: Large conglomerate retroperitoneal and pelvic lymphadenopathy are again noted. BLADDER: Soft tissue mass and wall thickening of the urinary bladder is again noted consistent with the patient's known history of bladder cancer. REPRODUCTIVE: The prostate is moderately to markedly enlarged. BONES: Diffuse sclerotic and lytic bony lesion noted in the skeleton consistent with widespread osseous metastasis. OTHER FINDINGS: Diffuse [id number] anasarca. IMPRESSION: Suspicious for interval displacement of the left percutaneous nephrostomy tube which resulting in moderate left hydronephrosis. Interval appearance of small left pleural effusion. Otherwise no significant interval changes since the prior study dated 05/22/2018 as discussed above.
--- NOTE | 2018-07-18 16:18 | CP.PCM.PN ---
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 monitor UOP lytes reviewed, continue with hypotonic fluids as ordered.decrease to 75 ml/hr hypokalemia being replaced Hypertension control with meds as ordered. Maintain hemodynamics stable. Avoid hypotension. started Mag 400 mg bid and sodium bicarb 650 bid urology/IR follow up for left displaced nephrostomy tube ROS: pt unable to provide much hx due to AMS Physical Examination: General Appearance: in no acute respiratory distress, co-operative . ill and debilitated appearing, cachexic Vitals reviewed and noted as below Head; normocephalic. has left forehead bruise ENT: no ulcers no thrush. Tongue is midline. EYES: Eye muscles and extraocular movement intact. Sclera is anicteric. Neck; supple nno thyromegaly or bruit Lungs: Normal respiratory rate/effort. Breath sounds bilateral equal and clearer Heart: Normal rate. s1s2 normal. No rub or gallop. Extremities: 1+ edema. No varicose veins Neurological: Patient is alert and more oriented. Skin: Warm and dry. Normal turgor. No rash Abdomen: Abdomen is soft. Bowel sounds +. There is no abdominal tenderness, no guarding/rigidity no organomegaly Psych: unable : has b/l nephrostomy tubes Objective - Vital Signs/Intake and Output Vital Signs (last 24 hours): Temp Pulse Resp BP Pulse Ox 98 F 100 H 20 129/63 99 07/18/18 16:16 07/18/18 16:16 07/18/18 16:16 07/18/18 16:16 07/18/18 16:16 Intake and Output: 07/18/18 07/18/18 06:59 18:59 Output Total 470 Balance -470 - Medications Medications: Current Medications Acetaminophen (Tylenol 325mg Tab) 650 mg PO Q6 PRN PRN Reason: Fever >100.4 F Last Admin: 07/12/18 12:46 Dose: 650 mg Acetaminophen (Tylenol 325mg Tab) 325 mg PO Q6 PRN PRN Reason: Pain, Mild (1-3) Alprazolam (Xanax) 0.25 mg PO Q6 PRN PRN Reason: Anxiety Stop: 07/25/18 04:01 Last Admin: 07/17/18 23:38 Dose: 0.25 mg Bupropion HCl (Wellbutrin) 75 mg PO DAILY [facility] Last Admin: 07/17/18 19:33 Dose: Not Given Dextrose (Dextrose 50% Inj) 0 ml IV STAT PRN; Protocol PRN Reason: Hypoglycemia Protocol Dextrose (Glutose 15) 0 gm PO ONCE PRN; Protocol PRN Reason: Hypoglycemia Protocol Enoxaparin Sodium (Lovenox) 40 mg SC DAILY [facility]; Protocol Last Admin: 07/18/18 09:26 Dose: 40 mg Fentanyl (Duragesic) 1 patch TD Q3D [facility]; Protocol Last Admin: 07/18/18 13:02 Dose: 1 patch Ceftriaxone Sodium 2 gm/ (Sodium Chloride) 100 mls @ 100 mls/hr IVPB DAILY [facility]; Protocol Last Admin: 07/18/18 09:27 Dose: 100 mls/hr Potassium Chloride/Dextrose (Potassium Chl 20 Meq In D5w) 1,000 mls @ 75 mls/hr IV .[id number] [facility] Lactulose (Enulose) 20 gm PO DAILY PRN PRN Reason: Constipation Last Admin: 07/09/18 09:14 Dose: 20 gm Lorazepam (Ativan) 0.5 mg IVP Q8 PRN PRN Reason: Agitation Last Admin: 07/10/18 04:56 Dose: 0.5 mg Magnesium Oxide (Mag-Ox) 400 mg PO BID [facility] Stop: 07/21/18 17:01 Last Admin: 07/17/18 17:00 Dose: Not Given Ondansetron HCl (Zofran Inj) 4 mg IVP Q6 PRN PRN Reason: Nausea/Vomiting Last Admin: 07/07/18 09:47 Dose: 4 mg Pantoprazole Sodium (Protonix Inj) 40 mg IVP DAILY [facility] Last Admin: 07/18/18 09:27 Dose: 40 mg Potassium Chloride (Potassium Chloride Oral Soln) 60 meq PO DAILY [facility] Last Admin: 07/17/18 21:24 Dose: Not Given Senna/Docusate Sodium (Senokot S 50 Mg-8.6 Mg) 1 tab PO HS [facility] Last Admin: 07/17/18 22:15 Dose: Not Given Sodium Bicarbonate (Sodium Bicarbonate Tab) 650 mg PO BID [facility] Last Admin: 07/17/18 17:00 Dose: Not Given Tamsulosin HCl (Flomax) 0.4 mg PO [facility] Last Admin: 07/17/18 21:44 Dose: 0.4 mg - Labs Labs: 07/17/18 05:30 07/17/18 05:30
[2018-07-18] MEDS: Magnesium Oxide 400 mg Tab UD PO SCH ×2 (17:07→17:08)
[2018-07-18] MEDS: Potassium Chloride 20 mEq/15 ml LIQ UD PO SCH (17:08)
--- NOTE | 2018-07-18 22:24 | CP.PCM.PN ---
Subjective - Date & Time of Evaluation Date of Evaluation: 07/18/18 Time of Evaluation: 19:00 - Subjective Subjective: Fatigued, weak Objective - Vital Signs/Intake and Output Vital Signs (last 24 hours): Temp Pulse Resp BP Pulse Ox 98 F 100 H 20 129/63 99 07/18/18 16:16 07/18/18 16:16 07/18/18 16:16 07/18/18 16:16 07/18/18 16:16 Intake and Output: 07/18/18 07/19/18 18:59 06:59 Output Total 830 Balance -830 - Medications Medications: Current Medications Acetaminophen (Tylenol 325mg Tab) 650 mg PO Q6 PRN PRN Reason: Fever >100.4 F Last Admin: 07/12/18 12:46 Dose: 650 mg Acetaminophen (Tylenol 325mg Tab) 325 mg PO Q6 PRN PRN Reason: Pain, Mild (1-3) Alprazolam (Xanax) 0.25 mg PO Q6 PRN PRN Reason: Anxiety Stop: 07/25/18 04:01 Last Admin: 07/17/18 23:38 Dose: 0.25 mg Bupropion HCl (Wellbutrin) 75 mg PO DAILY [facility] Last Admin: 07/18/18 17:08 Dose: 75 mg Dextrose (Dextrose 50% Inj) 0 ml IV STAT PRN; Protocol PRN Reason: Hypoglycemia Protocol Dextrose (Glutose 15) 0 gm PO ONCE PRN; Protocol PRN Reason: Hypoglycemia Protocol Enoxaparin Sodium (Lovenox) 40 mg SC DAILY [facility]; Protocol Last Admin: 07/18/18 09:26 Dose: 40 mg Fentanyl (Duragesic) 1 patch TD Q3D [facility]; Protocol Last Admin: 07/18/18 13:02 Dose: 1 patch Ceftriaxone Sodium 2 gm/ (Sodium Chloride) 100 mls @ 100 mls/hr IVPB DAILY [facility]; Protocol Last Admin: 07/18/18 09:27 Dose: 100 mls/hr Potassium Chloride/Dextrose (Potassium Chl 20 Meq In D5w) 1,000 mls @ 75 mls/hr IV .[id number] [facility] Lactulose (Enulose) 20 gm PO DAILY PRN PRN Reason: Constipation Last Admin: 07/09/18 09:14 Dose: 20 gm Lorazepam (Ativan) 0.5 mg IVP Q8 PRN PRN Reason: Agitation Last Admin: 07/10/18 04:56 Dose: 0.5 mg Magnesium Oxide (Mag-Ox) 400 mg PO BID [facility] Stop: 07/21/18 17:01 Last Admin: 07/18/18 17:08 Dose: 400 mg Ondansetron HCl (Zofran Inj) 4 mg IVP Q6 PRN PRN Reason: Nausea/Vomiting Last Admin: 07/07/18 09:47 Dose: 4 mg Pantoprazole Sodium (Protonix Inj) 40 mg IVP DAILY [facility] Last Admin: 07/18/18 09:27 Dose: 40 mg Potassium Chloride (Potassium Chloride Oral Soln) 60 meq PO DAILY [facility] Last Admin: 07/18/18 17:08 Dose: Not Given Senna/Docusate Sodium (Senokot S 50 Mg-8.6 Mg) 1 tab PO [facility] Last Admin: 07/17/18 22:15 Dose: Not Given Sodium Bicarbonate (Sodium Bicarbonate Tab) 650 mg PO BID [facility] Last Admin: 07/18/18 17:09 Dose: 650 mg Tamsulosin HCl (Flomax) 0.4 mg PO [facility] Last Admin: 07/17/18 21:44 Dose: 0.4 mg - Labs Labs: 07/17/18 05:30 07/17/18 05:30 - Head Exam Head Exam: ATRAUMATIC - Eye Exam Eye Exam: Normal appearance - ENT Exam ENT Exam: Mucous Membranes Dry - Respiratory Exam Respiratory Exam: NORMAL BREATHING PATTERN - Cardiovascular Exam Cardiovascular Exam: +S1, +S2 Assessment and Plan (1) DVT (deep venous thrombosis) Assessment & Plan: provoked from malignancy placed back on lovenox prophylaxis H/H stable; recommend therapeutic lovenox in AM if no further bleeding and stable H/H Status: Acute (2) Anemia Assessment & Plan: chronic disease transfusion support PRN Status: Acute (3) Bladder cancer Assessment & Plan: stage IV has not received chemotherapy in several months s/p palliative radiotherapy deferred hospice had repeat code status discussion with son; wants to think about it Status: Chronic
[2018-07-18] MEDS: Docusate-Senna 50 mg-8.6 mg Tab PO SCH (22:58)
[2018-07-19] MEDS: Potassium Chl 20mEq & D5W 1,000 ML IV SCH (02:16)
[2018-07-19 06:53] LABS: HEMOGLOBIN 8.9 g/dL (12.0-18.0); MEAN CELL VOLUME 93.8 fl (80.0-94.0); MEAN CORPUSCULAR HEMOGLOBIN 30.1 pg (27.0-31.0); MEAN CORPUSCULAR HGB CONC 32.1 g/dL (33.0-37.0); RBC 2.94 Mil/uL (4.40-5.90); RED CELL DISTRIBUTION WIDTH 19.5 % (11.5-14.5); WHITE BLOOD COUNT 5.1 K/uL (4.8-10.8)
[2018-07-19 07:07] LABS: ALB/GLOB RATIO 0.7 (1.0-2.1); ALBUMIN 2.6 g/dL (3.5-5.0); ALT/SGPT 41 U/L (21-72); AST/SGOT 33 U/L (17-59); BLOOD UREA NITROGEN 21 mg/dl (9-20); CALCIUM 8.1 mg/dL (8.4-10.2); GFR NON-AFRICAN AMERICAN 58
[2018-07-19] MEDS: Enoxaparin 40 mg Syringe SC SCH (09:40)
[2018-07-19] MEDS: Potassium Chloride 20 mEq/15 ml LIQ UD PO SCH ×2 (09:40→16:52)
[2018-07-19] MEDS: Magnesium Oxide 400 mg Tab UD PO SCH ×2 (09:41→16:51)
[2018-07-19] MEDS: cefTRIAXone 2 GM in Sodium Chloride 0.9% 100 ML IVPB SCH (09:43)
--- NOTE | 2018-07-19 09:44 | CP.PCM.PN ---
Subjective - Date & Time of Evaluation Date of Evaluation: 07/19/18 Time of Evaluation: 09:43 - Subjective Subjective: no overnight events Objective - Vital Signs/Intake and Output Vital Signs (last 24 hours): Temp Pulse Resp BP Pulse Ox 98.3 F 98 H 20 131/65 99 07/19/18 08:25 07/19/18 08:25 07/19/18 08:25 07/19/18 08:25 07/19/18 08:25 Intake and Output: 07/19/18 07/19/18 06:59 18:59 Intake Total 1200 Output Total 1450 Balance -250 - Medications Medications: Current Medications Acetaminophen (Tylenol 325mg Tab) 650 mg PO Q6 PRN PRN Reason: Fever >100.4 F Last Admin: 07/19/18 09:39 Dose: 650 mg Acetaminophen (Tylenol 325mg Tab) 325 mg PO Q6 PRN PRN Reason: Pain, Mild (1-3) Alprazolam (Xanax) 0.25 mg PO Q6 PRN PRN Reason: Anxiety Stop: 07/25/18 04:01 Last Admin: 07/17/18 23:38 Dose: 0.25 mg Bupropion HCl (Wellbutrin) 75 mg PO DAILY [facility] Last Admin: 07/19/18 09:40 Dose: 75 mg Dextrose (Dextrose 50% Inj) 0 ml IV STAT PRN; Protocol PRN Reason: Hypoglycemia Protocol Dextrose (Glutose 15) 0 gm PO ONCE PRN; Protocol PRN Reason: Hypoglycemia Protocol Enoxaparin Sodium (Lovenox) 40 mg SC DAILY [facility]; Protocol Last Admin: 07/19/18 09:40 Dose: 40 mg Fentanyl (Duragesic) 1 patch TD Q3D [facility]; Protocol Last Admin: 07/18/18 13:02 Dose: 1 patch Ceftriaxone Sodium 2 gm/ (Sodium Chloride) 100 mls @ 100 mls/hr IVPB DAILY [facility]; Protocol Last Admin: 07/18/18 09:27 Dose: 100 mls/hr Potassium Chloride/Dextrose (Potassium Chl 20 Meq In D5w) 1,000 mls @ 75 mls/hr IV .[id number] [facility] Last Admin: 07/19/18 02:16 Dose: Not Given Lactulose (Enulose) 20 gm PO DAILY PRN PRN Reason: Constipation Last Admin: 07/09/18 09:14 Dose: 20 gm Lorazepam (Ativan) 0.5 mg IVP Q8 PRN PRN Reason: Agitation Last Admin: 07/10/18 04:56 Dose: 0.5 mg Magnesium Oxide (Mag-Ox) 400 mg PO BID [facility] Stop: 07/21/18 17:01 Last Admin: 07/19/18 09:41 Dose: 400 mg Ondansetron HCl (Zofran Inj) 4 mg IVP Q6 PRN PRN Reason: Nausea/Vomiting Last Admin: 07/07/18 09:47 Dose: 4 mg Pantoprazole Sodium (Protonix Inj) 40 mg IVP DAILY [facility] Last Admin: 07/19/18 09:40 Dose: 40 mg Potassium Chloride (Potassium Chloride Oral Soln) 60 meq PO DAILY [facility] Last Admin: 07/19/18 09:40 Dose: 60 meq Senna/Docusate Sodium (Senokot S 50 Mg-8.6 Mg) 1 tab PO [facility] Last Admin: 07/18/18 22:58 Dose: Not Given Sodium Bicarbonate (Sodium Bicarbonate Tab) 650 mg PO BID [facility] Last Admin: 07/19/18 09:40 Dose: 650 mg Tamsulosin HCl (Flomax) 0.4 mg PO [facility] Last Admin: 07/18/18 22:58 Dose: 0.4 mg - Labs Labs: 07/19/18 06:25 07/19/18 06:25 - ENT Exam ENT Exam: Normal Exam - Neck Exam Neck Exam: Normal Inspection - Respiratory Exam Respiratory Exam: Clear to Ausculation Bilateral, NORMAL BREATHING PATTERN - Cardiovascular Exam Cardiovascular Exam: REGULAR RHYTHM - GI/Abdominal Exam GI & Abdominal Exam: Soft, Normal Bowel Sounds Assessment and Plan - Assessment and Plan (Free Text) Assessment: 78 yo male with anemia no bleeding placement issues
--- NOTE | 2018-07-19 10:03 | PN ---
DATE: 07/18/2018 SUBJECTIVE: The patient seen and examined. Interim events noted. The patient remains in regular medical floor with observation for safety. The patient is sleeping, arousable. Feels okay. Has chronic pain, controlled with current pain medications. PHYSICAL EXAMINATION: GENERAL: The patient is in no acute distress. VITAL SIGNS: Stable. HEART EXAM: S1, S2 normal and regular. LUNGS: Good bilateral air exchange. ABDOMEN: Soft. Nontender. EXTREMITIES EXAM: No edema. No calf swelling. No tenderness. No acute ischemia. CENTRAL NERVOUS SYSTEM EXAM: Essentially unchanged. DIAGNOSTIC DATA: Available diagnostic data reviewed. The patient is for possible radiology intervention today to evaluate nephrostomy tubes although seems to be draining fine. ASSESSMENT AND PLAN: Plan as ordered. Vinay Henderson MD
--- NOTE | 2018-07-19 11:00 | CP.PCM.PN ---
Subjective - Date & Time of Evaluation Date of Evaluation: 07/19/18 Time of Evaluation: 10:58 - Subjective Subjective: no significant changes Chronic debility Vital signs stable Objective - Vital Signs/Intake and Output Vital Signs (last 24 hours): Temp Pulse Resp BP Pulse Ox 98.3 F 98 H 20 131/65 99 07/19/18 08:25 07/19/18 08:25 07/19/18 08:25 07/19/18 08:25 07/19/18 08:25 Intake and Output: 07/19/18 07/19/18 06:59 18:59 Intake Total 1200 Output Total 1450 Balance -250 - Medications Medications: Current Medications Acetaminophen (Tylenol 325mg Tab) 650 mg PO Q6 PRN PRN Reason: Fever >100.4 F Last Admin: 07/19/18 09:39 Dose: 650 mg Acetaminophen (Tylenol 325mg Tab) 325 mg PO Q6 PRN PRN Reason: Pain, Mild (1-3) Alprazolam (Xanax) 0.25 mg PO Q6 PRN PRN Reason: Anxiety Stop: 07/25/18 04:01 Last Admin: 07/17/18 23:38 Dose: 0.25 mg Bupropion HCl (Wellbutrin) 75 mg PO DAILY [facility] Last Admin: 07/19/18 09:40 Dose: 75 mg Dextrose (Dextrose 50% Inj) 0 ml IV STAT PRN; Protocol PRN Reason: Hypoglycemia Protocol Dextrose (Glutose 15) 0 gm PO ONCE PRN; Protocol PRN Reason: Hypoglycemia Protocol Enoxaparin Sodium (Lovenox) 40 mg SC DAILY [facility]; Protocol Last Admin: 07/19/18 09:40 Dose: 40 mg Fentanyl (Duragesic) 1 patch TD Q3D [facility]; Protocol Last Admin: 07/18/18 13:02 Dose: 1 patch Ceftriaxone Sodium 2 gm/ (Sodium Chloride) 100 mls @ 100 mls/hr IVPB DAILY [facility]; Protocol Last Admin: 07/19/18 09:43 Dose: 100 mls/hr Potassium Chloride/Dextrose (Potassium Chl 20 Meq In D5w) 1,000 mls @ 75 mls/hr IV .[id number] [facility] Last Admin: 07/19/18 02:16 Dose: Not Given Lactulose (Enulose) 20 gm PO DAILY PRN PRN Reason: Constipation Last Admin: 07/09/18 09:14 Dose: 20 gm Lorazepam (Ativan) 0.5 mg IVP Q8 PRN PRN Reason: Agitation Last Admin: 07/10/18 04:56 Dose: 0.5 mg Magnesium Oxide (Mag-Ox) 400 mg PO BID [facility] Stop: 07/21/18 17:01 Last Admin: 07/19/18 09:41 Dose: 400 mg Ondansetron HCl (Zofran Inj) 4 mg IVP Q6 PRN PRN Reason: Nausea/Vomiting Last Admin: 07/07/18 09:47 Dose: 4 mg Pantoprazole Sodium (Protonix Inj) 40 mg IVP DAILY [facility] Last Admin: 07/19/18 09:40 Dose: 40 mg Potassium Chloride (Potassium Chloride Oral Soln) 60 meq PO DAILY [facility] Last Admin: 07/19/18 09:40 Dose: 60 meq Senna/Docusate Sodium (Senokot S 50 Mg-8.6 Mg) 1 tab PO [facility] Last Admin: 07/18/18 22:58 Dose: Not Given Sodium Bicarbonate (Sodium Bicarbonate Tab) 650 mg PO BID [facility] Last Admin: 07/19/18 09:40 Dose: 650 mg Tamsulosin HCl (Flomax) 0.4 mg PO [facility] Last Admin: 07/18/18 22:58 Dose: 0.4 mg - Labs Labs: 07/19/18 06:25 07/19/18 06:25 - Constitutional Appears: No Acute Distress - Eye Exam Eye Exam: Conjunctival injection - ENT Exam ENT Exam: Mucous Membranes Moist - Neck Exam Neck Exam: absent: Lymphadenopathy - Respiratory Exam Respiratory Exam: NORMAL BREATHING PATTERN. absent: Chest Wall Tenderness - Cardiovascular Exam Cardiovascular Exam: REGULAR RHYTHM. 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 monitor UOP lytes reviewed, continue with hypotonic fluids as ordered.decrease to 75 ml/hr hypokalemia being replaced Hypertension control with meds as ordered. Maintain hemodynamics stable. Avoid hypotension. started Mag 400 mg bid and sodium bicarb 650 bid urology/IR follow up for left displaced nephrostomy tube Status: Acute (2) Anemia Status: Acute (3) Diabetes 1.5, managed as type 2 Status: Acute
--- NOTE | 2018-07-19 14:14 | PN ---
DATE: 07/19/2018 SUBJECTIVE: The patient is seen and examined. Interim events noted. Consults noted and appreciated. The patient remains in regular medical floor observation. The patient is sleeping, arousable. Feels okay. Complains of chronic pain, controlled with pain medication. No new complaints. PHYSICAL EXAMINATION GENERAL: The patient is in no acute distress. VITAL SIGNS: Stable. HEART: S1, S2 normal and regular. LUNGS: Good bilateral air exchange. ABDOMEN: Soft, nontender. No signs of acute abdomen. No guarding, no rigidity, no rebound. The patient has bilateral nephrostomy tubes draining urine. EXTREMITIES: No edema. No calf swelling. No tenderness. No acute ischemia. CENTRAL NERVOUS SYSTEM: Essentially unchanged. DIAGNOSTIC DATA: Available diagnostic data reviewed. CAT scan reveals nephrostomy tubes probably displaced from its original position. We will get IR to position the tubes. ASSESSMENT AND PLAN: As ordered. Vinay Henderson MD
[2018-07-19 20:49] LABS: INR 1.3; PROTHROMBIN TIME 14.8 Seconds (9.8-13.1)
[2018-07-19 20:51] LABS: PARTIAL THROMBOPLASTIN TIME 29.2 Seconds (25.6-37.1)
[2018-07-19] MEDS: Docusate-Senna 50 mg-8.6 mg Tab PO SCH (22:26)
[2018-07-20] MEDS: Potassium Chl 20mEq & D5W 1,000 ML IV SCH ×2 (00:47→04:48)
[2018-07-20] MEDS: Magnesium Oxide 400 mg Tab UD PO SCH ×2 (08:42→17:27)
[2018-07-20] MEDS: Potassium Chloride 20 mEq/15 ml LIQ UD PO SCH (08:43)
[2018-07-20] MEDS: Enoxaparin 40 mg Syringe SC SCH (10:35)
[2018-07-20] MEDS: cefTRIAXone 2 GM in Sodium Chloride 0.9% 100 ML IVPB SCH (10:40)
--- NOTE | 2018-07-20 11:40 | CP.PCM.PN ---
Subjective - Date & Time of Evaluation Date of Evaluation: 07/20/18 Time of Evaluation: 11:38 - Subjective Subjective: Surgery: Dr. Flores Awaiting final results of repeat blood cx, currently no growth to date. Pt has been afebrile as well. Decision to remove portacath pending final blood cx results d/w attending Ivan PGY4 Objective - Vital Signs/Intake and Output Vital Signs (last 24 hours): Temp Pulse Resp BP Pulse Ox 97.6 F 90 20 100/57 L 99 07/20/18 08:35 07/20/18 08:35 07/20/18 08:35 07/20/18 08:35 07/20/18 08:35 Intake and Output: 07/20/18 07/20/18 06:59 18:59 Intake Total 900 Output Total 520 Balance 380 - Medications Medications: Current Medications Acetaminophen (Tylenol 325mg Tab) 650 mg PO Q6 PRN PRN Reason: Fever >100.4 F Last Admin: 07/19/18 09:39 Dose: 650 mg Acetaminophen (Tylenol 325mg Tab) 325 mg PO Q6 PRN PRN Reason: Pain, Mild (1-3) Last Admin: 07/20/18 08:08 Dose: 325 mg Alprazolam (Xanax) 0.25 mg PO Q6 PRN PRN Reason: Anxiety Stop: 07/25/18 04:01 Last Admin: 07/17/18 23:38 Dose: 0.25 mg Bupropion HCl (Wellbutrin) 75 mg PO DAILY [facility] Last Admin: 07/20/18 10:38 Dose: Not Given Dextrose (Dextrose 50% Inj) 0 ml IV STAT PRN; Protocol PRN Reason: Hypoglycemia Protocol Dextrose (Glutose 15) 0 gm PO ONCE PRN; Protocol PRN Reason: Hypoglycemia Protocol Enoxaparin Sodium (Lovenox) 40 mg SC DAILY [facility]; Protocol Last Admin: 07/20/18 10:35 Dose: Not Given Fentanyl (Duragesic) 1 patch TD Q3D [facility]; Protocol Last Admin: 07/18/18 13:02 Dose: 1 patch Ceftriaxone Sodium 2 gm/ (Sodium Chloride) 100 mls @ 100 mls/hr IVPB DAILY [facility]; Protocol Last Admin: 07/20/18 10:40 Dose: 100 mls/hr Potassium Chloride/Dextrose (Potassium Chl 20 Meq In D5w) 1,000 mls @ 75 mls/hr IV .[id number] [facility] Last Admin: 07/20/18 04:48 Dose: Not Given Lactulose (Enulose) 20 gm PO DAILY PRN PRN Reason: Constipation Last Admin: 07/09/18 09:14 Dose: 20 gm Lorazepam (Ativan) 0.5 mg IVP Q8 PRN PRN Reason: Agitation Last Admin: 07/10/18 04:56 Dose: 0.5 mg Magnesium Oxide (Mag-Ox) 400 mg PO BID [facility] Stop: 07/21/18 17:01 Last Admin: 07/20/18 08:42 Dose: Not Given Ondansetron HCl (Zofran Inj) 4 mg IVP Q6 PRN PRN Reason: Nausea/Vomiting Last Admin: 07/07/18 09:47 Dose: 4 mg Pantoprazole Sodium (Protonix Inj) 40 mg IVP DAILY [facility] Last Admin: 07/20/18 10:40 Dose: 40 mg Potassium Chloride (Potassium Chloride Oral Soln) 60 meq PO DAILY [facility] Last Admin: 07/20/18 08:43 Dose: Not Given Senna/Docusate Sodium (Senokot S 50 Mg-8.6 Mg) 1 tab PO [facility] Last Admin: 07/19/18 22:26 Dose: Not Given Sodium Bicarbonate (Sodium Bicarbonate Tab) 650 mg PO BID [facility] Last Admin: 07/20/18 08:43 Dose: Not Given Tamsulosin HCl (Flomax) 0.4 mg PO HS [facility] Last Admin: 07/19/18 22:25 Dose: 0.4 mg - Labs Labs: 07/19/18 06:25 07/19/18 06:25 PT 14.8 Seconds (9.8-13.1) H 07/19/18 20:20 INR 1.3 07/19/18 20:20 APTT 29.2 Seconds (25.6-37.1) 07/19/18 20:20
--- NOTE | 2018-07-20 12:19 | CP.PCM.PN ---
Subjective - Date & Time of Evaluation Date of Evaluation: 07/19/18 Time of Evaluation: 17:00 - Subjective Subjective: Fatigued, weak. Objective - Vital Signs/Intake and Output Vital Signs (last 24 hours): Temp Pulse Resp BP Pulse Ox 97.6 F 90 20 100/57 L 99 07/20/18 08:35 07/20/18 08:35 07/20/18 08:35 07/20/18 08:35 07/20/18 08:35 Intake and Output: 07/20/18 07/20/18 06:59 18:59 Intake Total 900 Output Total 520 Balance 380 - Medications Medications: Current Medications Acetaminophen (Tylenol 325mg Tab) 650 mg PO Q6 PRN PRN Reason: Fever >100.4 F Last Admin: 07/19/18 09:39 Dose: 650 mg Acetaminophen (Tylenol 325mg Tab) 325 mg PO Q6 PRN PRN Reason: Pain, Mild (1-3) Last Admin: 07/20/18 08:08 Dose: 325 mg Alprazolam (Xanax) 0.25 mg PO Q6 PRN PRN Reason: Anxiety Stop: 07/25/18 04:01 Last Admin: 07/17/18 23:38 Dose: 0.25 mg Bupropion HCl (Wellbutrin) 75 mg PO DAILY MIKE Last Admin: 07/20/18 10:38 Dose: Not Given Dextrose (Dextrose 50% Inj) 0 ml IV STAT PRN; Protocol PRN Reason: Hypoglycemia Protocol Dextrose (Glutose 15) 0 gm PO ONCE PRN; Protocol PRN Reason: Hypoglycemia Protocol Enoxaparin Sodium (Lovenox) 40 mg SC DAILY MIKE; Protocol Last Admin: 07/20/18 10:35 Dose: Not Given Fentanyl (Duragesic) 1 patch TD Q3D MIKE; Protocol Last Admin: 07/18/18 13:02 Dose: 1 patch Ceftriaxone Sodium 2 gm/ (Sodium Chloride) 100 mls @ 100 mls/hr IVPB DAILY MIKE; Protocol Last Admin: 07/20/18 10:40 Dose: 100 mls/hr Potassium Chloride/Dextrose (Potassium Chl 20 Meq In D5w) 1,000 mls @ 75 mls/hr IV .[id number] MIKE Last Admin: 07/20/18 04:48 Dose: Not Given Lactulose (Enulose) 20 gm PO DAILY PRN PRN Reason: Constipation Last Admin: 07/09/18 09:14 Dose: 20 gm Lorazepam (Ativan) 0.5 mg IVP Q8 PRN PRN Reason: Agitation Last Admin: 07/10/18 04:56 Dose: 0.5 mg Magnesium Oxide (Mag-Ox) 400 mg PO BID [facility] Stop: 07/21/18 17:01 Last Admin: 07/20/18 08:42 Dose: Not Given Ondansetron HCl (Zofran Inj) 4 mg IVP Q6 PRN PRN Reason: Nausea/Vomiting Last Admin: 07/07/18 09:47 Dose: 4 mg Pantoprazole Sodium (Protonix Inj) 40 mg IVP DAILY [facility] Last Admin: 07/20/18 10:40 Dose: 40 mg Potassium Chloride (Potassium Chloride Oral Soln) 60 meq PO DAILY [facility] Last Admin: 07/20/18 08:43 Dose: Not Given Senna/Docusate Sodium (Senokot S 50 Mg-8.6 Mg) 1 tab PO [facility] Last Admin: 07/19/18 22:26 Dose: Not Given Sodium Bicarbonate (Sodium Bicarbonate Tab) 650 mg PO BID [facility] Last Admin: 07/20/18 08:43 Dose: Not Given Tamsulosin HCl (Flomax) 0.4 mg PO HS [facility] Last Admin: 07/19/18 22:25 Dose: 0.4 mg - Labs Labs: 07/19/18 06:25 07/19/18 06:25 PT 14.8 Seconds (9.8-13.1) H 07/19/18 20:20 INR 1.3 07/19/18 20:20 APTT 29.2 Seconds (25.6-37.1) 07/19/18 20:20 - Head Exam Head Exam: ATRAUMATIC - Eye Exam Eye Exam: Normal appearance - ENT Exam ENT Exam: Mucous Membranes Dry - Respiratory Exam Respiratory Exam: NORMAL BREATHING PATTERN - Cardiovascular Exam Cardiovascular Exam: +S1, +S2 - GI/Abdominal Exam GI & Abdominal Exam: Normal Bowel Sounds Assessment and Plan (1) DVT (deep venous thrombosis) Assessment & Plan: provoked from malignancy placed back on lovenox prophylaxis H/H stable; recommend trial of therapeutic lovenox if no further bleeding and stable H/H Status: Acute (2) Anemia Assessment & Plan: chronic disease transfusion support PRN Status: Acute (3) Bladder cancer Assessment & Plan: stage IV has not received chemotherapy in several months s/p palliative radiotherapy deferred hospice had repeat code status discussion with son; wants to think about it Status: Chronic
--- NOTE | 2018-07-20 12:20 | CP.PCM.PN ---
Subjective - Date & Time of Evaluation Date of Evaluation: 07/20/18 Time of Evaluation: 11:00 - Subjective Subjective: Fatigued, appears weak. Objective - Vital Signs/Intake and Output Vital Signs (last 24 hours): Temp Pulse Resp BP Pulse Ox 97.6 F 90 20 100/57 L 99 07/20/18 08:35 07/20/18 08:35 07/20/18 08:35 07/20/18 08:35 07/20/18 08:35 Intake and Output: 07/20/18 07/20/18 06:59 18:59 Intake Total 900 Output Total 520 Balance 380 - Medications Medications: Current Medications Acetaminophen (Tylenol 325mg Tab) 650 mg PO Q6 PRN PRN Reason: Fever >100.4 F Last Admin: 07/19/18 09:39 Dose: 650 mg Acetaminophen (Tylenol 325mg Tab) 325 mg PO Q6 PRN PRN Reason: Pain, Mild (1-3) Last Admin: 07/20/18 08:08 Dose: 325 mg Alprazolam (Xanax) 0.25 mg PO Q6 PRN PRN Reason: Anxiety Stop: 07/25/18 04:01 Last Admin: 07/17/18 23:38 Dose: 0.25 mg Bupropion HCl (Wellbutrin) 75 mg PO DAILY MIKE Last Admin: 07/20/18 10:38 Dose: Not Given Dextrose (Dextrose 50% Inj) 0 ml IV STAT PRN; Protocol PRN Reason: Hypoglycemia Protocol Dextrose (Glutose 15) 0 gm PO ONCE PRN; Protocol PRN Reason: Hypoglycemia Protocol Enoxaparin Sodium (Lovenox) 40 mg SC DAILY MIKE; Protocol Last Admin: 07/20/18 10:35 Dose: Not Given Fentanyl (Duragesic) 1 patch TD Q3D MIKE; Protocol Last Admin: 07/18/18 13:02 Dose: 1 patch Ceftriaxone Sodium 2 gm/ (Sodium Chloride) 100 mls @ 100 mls/hr IVPB DAILY MIKE; Protocol Last Admin: 07/20/18 10:40 Dose: 100 mls/hr Potassium Chloride/Dextrose (Potassium Chl 20 Meq In D5w) 1,000 mls @ 75 mls/hr IV .[id number] MIKE Last Admin: 07/20/18 04:48 Dose: Not Given Lactulose (Enulose) 20 gm PO DAILY PRN PRN Reason: Constipation Last Admin: 07/09/18 09:14 Dose: 20 gm Lorazepam (Ativan) 0.5 mg IVP Q8 PRN PRN Reason: Agitation Last Admin: 07/10/18 04:56 Dose: 0.5 mg Magnesium Oxide (Mag-Ox) 400 mg PO BID [facility] Stop: 07/21/18 17:01 Last Admin: 07/20/18 08:42 Dose: Not Given Ondansetron HCl (Zofran Inj) 4 mg IVP Q6 PRN PRN Reason: Nausea/Vomiting Last Admin: 07/07/18 09:47 Dose: 4 mg Pantoprazole Sodium (Protonix Inj) 40 mg IVP DAILY [facility] Last Admin: 07/20/18 10:40 Dose: 40 mg Potassium Chloride (Potassium Chloride Oral Soln) 60 meq PO DAILY [facility] Last Admin: 07/20/18 08:43 Dose: Not Given Senna/Docusate Sodium (Senokot S 50 Mg-8.6 Mg) 1 tab PO [facility] Last Admin: 07/19/18 22:26 Dose: Not Given Sodium Bicarbonate (Sodium Bicarbonate Tab) 650 mg PO BID [facility] Last Admin: 07/20/18 08:43 Dose: Not Given Tamsulosin HCl (Flomax) 0.4 mg PO HS [facility] Last Admin: 07/19/18 22:25 Dose: 0.4 mg - Labs Labs: 07/19/18 06:25 07/19/18 06:25 PT 14.8 Seconds (9.8-13.1) H 07/19/18 20:20 INR 1.3 07/19/18 20:20 APTT 29.2 Seconds (25.6-37.1) 07/19/18 20:20 - Head Exam Head Exam: ATRAUMATIC - Eye Exam Eye Exam: Normal appearance - ENT Exam ENT Exam: Mucous Membranes Dry - Respiratory Exam Respiratory Exam: NORMAL BREATHING PATTERN - Cardiovascular Exam Cardiovascular Exam: +S1, +S2 - GI/Abdominal Exam GI & Abdominal Exam: Normal Bowel Sounds Assessment and Plan (1) DVT (deep venous thrombosis) Assessment & Plan: provoked from malignancy placed back on lovenox prophylaxis H/H stable; recommend trial of therapeutic lovenox if no further bleeding and stable H/H Status: Acute (2) Anemia Assessment & Plan: chronic disease transfusion support PRN Status: Acute (3) Bladder cancer Assessment & Plan: stage IV has not received chemotherapy in several months s/p palliative radiotherapy deferred hospice had repeat code status discussion with son; wants to think about it Status: Chronic
--- NOTE | 2018-07-20 13:05 | PN ---
DATE: 07/20/2018 SUBJECTIVE: The patient seen and examined. Interim events noted. Consults noted and appreciated. Nephrology followup and intervention noted and appreciated. The patient remains in regular medical floor, in isolation room with observation for safety. The patient is sleeping, arousable, feels okay. Complains of chronic pain, controlled with current pain medication. No new complaint of chest pain. No shortness of breath. PHYSICAL EXAMINATION: GENERAL: The patient is in no acute distress. VITAL SIGNS: Stable. HEART: S1 and S2, normal and regular. LUNGS: Good bilateral air exchange. ABDOMEN: Soft, nontender. EXTREMITIES: No edema. No calf swelling. No tenderness. No acute ischemia. CENTRAL NERVOUS SYSTEM: Essentially unchanged. GENITOURINARY: The patient has nephrostomy tube with drainage of urine. DIAGNOSTIC DATA: Available diagnostic data reviewed. ASSESSMENT AND PLAN: Overall, the patient's general medical condition is stable. Long-term prognosis remains poor due to underlying stage IV cancer. Plan as ordered. Vinay Henderson MD
[2018-07-20] MEDS ORDERED: Lidocaine 1% Inj (20ml) ONE (13:26)
[2018-07-20] MEDS ORDERED: Iodixanol 320 MG/ML 100 ML BOTTLE IV ONE (13:31)
[2018-07-20] MEDS ORDERED: Midazolam 2 MG/2 ML VIAL ONE (13:33)
--- NOTE | 2018-07-20 14:14 | PCM.SURG1 ---
Surgeon's Initial Post Op Note - Surgeon's Notes Surgeon: [employer] Associate: None Type of Anesthesia: IV Sedation, Local Pre-Operative Diagnosis: Malfunctioning left nephrostomy catheter. 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 Post-Operative Diagnosis: Malfunctioning left nephrostomy catheter. Operation Performed: left nephrostogram and exchange of left nephrostomy catheter. Specimen/Specimens Removed: None Estimated Blood Loss: EBL {In ML}: 1 Date of Surgery/Procedure: 07/20/18 Time of Surgery/Procedure: 14:05
[2018-07-20] MEDS ORDERED: Sodium Chloride 0.9% 250 ML IV ONE ×2 (14:15)
[2018-07-20] MEDS: Sodium Chloride 0.9% 1,000 ML IV SCH (21:13)
[2018-07-20] MEDS: Docusate-Senna 50 mg-8.6 mg Tab PO SCH (21:18)
[2018-07-21 06:26] LABS: HEMOGLOBIN 8.2 g/dL (12.0-18.0); MEAN CELL VOLUME 92.3 fl (80.0-94.0); MEAN CORPUSCULAR HEMOGLOBIN 30.6 pg (27.0-31.0); MEAN CORPUSCULAR HGB CONC 33.2 g/dL (33.0-37.0); RBC 2.67 Mil/uL (4.40-5.90); RED CELL DISTRIBUTION WIDTH 18.7 % (11.5-14.5); WHITE BLOOD COUNT 4.6 K/uL (4.8-10.8)
[2018-07-21 06:57] LABS: ALB/GLOB RATIO 0.7 (1.0-2.1); ALBUMIN 2.4 g/dL (3.5-5.0); ALT/SGPT 40 U/L (21-72); AST/SGOT 42 U/L (17-59); BLOOD UREA NITROGEN 22 mg/dl (9-20); CALCIUM 7.9 mg/dL (8.4-10.2); GFR NON-AFRICAN AMERICAN 58
--- NOTE | 2018-07-21 09:57 | CP.PCM.PN ---
Subjective - Date & Time of Evaluation Date of Evaluation: 07/21/18 Time of Evaluation: 09:56 - Subjective Subjective: no overnight events Objective - Vital Signs/Intake and Output Vital Signs (last 24 hours): Temp Pulse Resp BP Pulse Ox 97.5 F L 62 20 123/68 97 07/21/18 08:38 07/21/18 08:38 07/21/18 08:38 07/21/18 08:38 07/21/18 08:38 - Medications Medications: Current Medications Acetaminophen (Tylenol 325mg Tab) 650 mg PO Q6 PRN PRN Reason: Fever >100.4 F Last Admin: 07/19/18 09:39 Dose: 650 mg Acetaminophen (Tylenol 325mg Tab) 325 mg PO Q6 PRN PRN Reason: Pain, Mild (1-3) Last Admin: 07/20/18 23:37 Dose: 325 mg Alprazolam (Xanax) 0.25 mg PO Q6 PRN PRN Reason: Anxiety Stop: 07/25/18 04:01 Last Admin: 07/20/18 21:18 Dose: 0.25 mg Bupropion HCl (Wellbutrin) 75 mg PO DAILY MIKE Last Admin: 07/20/18 10:38 Dose: Not Given Dextrose (Dextrose 50% Inj) 0 ml IV STAT PRN; Protocol PRN Reason: Hypoglycemia Protocol Dextrose (Glutose 15) 0 gm PO ONCE PRN; Protocol PRN Reason: Hypoglycemia Protocol Enoxaparin Sodium (Lovenox) 40 mg SC DAILY MIKE; Protocol Last Admin: 07/20/18 10:35 Dose: Not Given Fentanyl (Duragesic) 1 patch TD Q3D MIKE; Protocol Last Admin: 07/18/18 13:02 Dose: 1 patch Ceftriaxone Sodium 2 gm/ (Sodium Chloride) 100 mls @ 100 mls/hr IVPB DAILY MIKE; Protocol Last Admin: 07/20/18 10:40 Dose: 100 mls/hr Potassium Chloride/Dextrose (Potassium Chl 20 Meq In D5w) 1,000 mls @ 75 mls/hr IV .[id number] MIKE Last Admin: 07/20/18 04:48 Dose: Not Given Sodium Chloride (Sodium Chloride 0.9%) 1,000 mls @ 40 mls/hr IV .Q24H MIKE Last Admin: 07/20/18 21:13 Dose: 40 mls/hr Lactulose (Enulose) 20 gm PO DAILY PRN PRN Reason: Constipation Last Admin: 07/09/18 09:14 Dose: 20 gm Lorazepam (Ativan) 0.5 mg IVP Q8 PRN PRN Reason: Agitation Last Admin: 07/10/18 04:56 Dose: 0.5 mg Magnesium Oxide (Mag-Ox) 400 mg PO BID [facility] Stop: 07/21/18 17:01 Last Admin: 07/20/18 17:27 Dose: 400 mg Ondansetron HCl (Zofran Inj) 4 mg IVP Q6 PRN PRN Reason: Nausea/Vomiting Last Admin: 07/07/18 09:47 Dose: 4 mg Pantoprazole Sodium (Protonix Inj) 40 mg IVP DAILY [facility] Last Admin: 07/20/18 10:40 Dose: 40 mg Potassium Chloride (Potassium Chloride Oral Soln) 60 meq PO DAILY [facility] Last Admin: 07/20/18 08:43 Dose: Not Given Senna/Docusate Sodium (Senokot S 50 Mg-8.6 Mg) 1 tab PO [facility] Last Admin: 07/20/18 21:18 Dose: 1 tab Sodium Bicarbonate (Sodium Bicarbonate Tab) 650 mg PO BID [facility] Last Admin: 07/20/18 17:28 Dose: 650 mg Tamsulosin HCl (Flomax) 0.4 mg PO [facility] Last Admin: 07/20/18 23:43 Dose: 0.4 mg - Labs Labs: 07/21/18 05:55 07/21/18 05:55 PT 14.8 Seconds (9.8-13.1) H 07/19/18 20:20 INR 1.3 07/19/18 20:20 APTT 29.2 Seconds (25.6-37.1) 07/19/18 20:20 - Respiratory Exam Respiratory Exam: Clear to Ausculation Bilateral, NORMAL BREATHING PATTERN - Cardiovascular Exam Cardiovascular Exam: REGULAR RHYTHM - GI/Abdominal Exam GI & Abdominal Exam: Soft, Normal Bowel Sounds Assessment and Plan - Assessment and Plan (Free Text) Assessment: 78 yo male with anemia no bleeding dc planning once able
[2018-07-21] MEDS: cefTRIAXone 2 GM in Sodium Chloride 0.9% 100 ML IVPB SCH (10:09)
[2018-07-21] MEDS: Enoxaparin 40 mg Syringe SC SCH (11:12)
[2018-07-21] MEDS: Magnesium Oxide 400 mg Tab UD PO SCH ×2 (11:13→17:50)
[2018-07-21] MEDS: Potassium Chloride 20 mEq/15 ml LIQ UD PO SCH (11:30)
--- NOTE | 2018-07-21 11:51 | CARD ---
APPROVED REPORT Date of service: 07/21/2018 EKG Measurement Heart [id number] OR [id number] <Conclusion> Sinus tachycardia Otherwise normal ECG
--- NOTE | 2018-07-21 13:39 | RAD ---
Date of service: 07/21/2018 HISTORY: R/O rib Fx COMPARISON: 07/11/2018 FINDINGS: LUNGS: No active pulmonary disease. PLEURA: No significant pleural effusion identified, no pneumothorax apparent. CARDIOVASCULAR: No aortic atherosclerotic calcification present. Normal cardiac size. No congestive change. Right central venous infusion port noted. OSSEOUS STRUCTURES: Extensive sclerotic change noted in all visualized osseous structures suspicious for widespread sclerotic metastasis.. VISUALIZED UPPER ABDOMEN: Normal. OTHER FINDINGS: None. IMPRESSION: No infiltrate. Central venous infusion port. 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
[2018-07-21] MEDS: Sodium Chloride 0.9% 1,000 ML IV SCH (17:53)
[2018-07-21] MEDS: Docusate-Senna 50 mg-8.6 mg Tab PO SCH (21:26)
[2018-07-22 06:26] LABS: HEMOGLOBIN 8.7 g/dL (12.0-18.0); MEAN CELL VOLUME 92.7 fl (80.0-94.0); MEAN CORPUSCULAR HEMOGLOBIN 30.2 pg (27.0-31.0); MEAN CORPUSCULAR HGB CONC 32.6 g/dL (33.0-37.0); RBC 2.88 Mil/uL (4.40-5.90); RED CELL DISTRIBUTION WIDTH 18.7 % (11.5-14.5); WHITE BLOOD COUNT 5.6 K/uL (4.8-10.8)
[2018-07-22 06:59] LABS: BLOOD UREA NITROGEN 20 mg/dl (9-20); CALCIUM 8.4 mg/dL (8.4-10.2); GFR NON-AFRICAN AMERICAN > 60
--- NOTE | 2018-07-22 07:18 | CP.PCM.PN ---
Subjective - Date & Time of Evaluation Date of Evaluation: 07/22/18 Time of Evaluation: 06:55 - Subjective Subjective: Surgery: Dr. Flores Patient seen and examined this morning. He remains mildly confused but cooperative. He has no complaints. He is tolerating his dysphagia diet. Objective - Vital Signs/Intake and Output Vital Signs (last 24 hours): Temp Pulse Resp BP Pulse Ox 98 F 98 H 20 160/71 H 95 07/22/18 00:44 07/22/18 00:44 07/22/18 00:44 07/22/18 00:44 07/22/18 00:44 - Medications Medications: Current Medications Acetaminophen (Tylenol 325mg Tab) 650 mg PO Q6 PRN PRN Reason: Fever >100.4 F Last Admin: 07/21/18 17:53 Dose: 650 mg Acetaminophen (Tylenol 325mg Tab) 325 mg PO Q6 PRN PRN Reason: Pain, Mild (1-3) Last Admin: 07/20/18 23:37 Dose: 325 mg Alprazolam (Xanax) 0.25 mg PO Q6 PRN PRN Reason: Anxiety Stop: 07/25/18 04:01 Last Admin: 07/20/18 21:18 Dose: 0.25 mg Bupropion HCl (Wellbutrin) 75 mg PO DAILY [facility] Last Admin: 07/21/18 11:31 Dose: 75 mg Dextrose (Dextrose 50% Inj) 0 ml IV STAT PRN; Protocol PRN Reason: Hypoglycemia Protocol Dextrose (Glutose 15) 0 gm PO ONCE PRN; Protocol PRN Reason: Hypoglycemia Protocol Enoxaparin Sodium (Lovenox) 40 mg SC DAILY MIKE; Protocol Last Admin: 07/21/18 11:12 Dose: 40 mg Fentanyl (Duragesic) 1 patch TD Q3D MIKE; Protocol Last Admin: 07/21/18 11:10 Dose: 1 patch Ceftriaxone Sodium 2 gm/ (Sodium Chloride) 100 mls @ 100 mls/hr IVPB DAILY [facility]KE; Protocol Last Admin: 07/21/18 10:09 Dose: 100 mls/hr Potassium Chloride/Dextrose (Potassium Chl 20 Meq In D5w) 1,000 mls @ 75 mls/hr IV .[id number] MIKE Last Admin: 07/20/18 04:48 Dose: Not Given Sodium Chloride (Sodium Chloride 0.9%) 1,000 mls @ 40 mls/hr IV .Q24H [facility] Last Admin: 07/21/18 17:53 Dose: 40 mls/hr Lactulose (Enulose) 20 gm PO DAILY PRN PRN Reason: Constipation Last Admin: 07/09/18 09:14 Dose: 20 gm Lorazepam (Ativan) 0.5 mg IVP Q8 PRN PRN Reason: Agitation Last Admin: 07/21/18 21:35 Dose: 0.5 mg Ondansetron HCl (Zofran Inj) 4 mg IVP Q6 PRN PRN Reason: Nausea/Vomiting Last Admin: 07/07/18 09:47 Dose: 4 mg Pantoprazole Sodium (Protonix Inj) 40 mg IVP DAILY [facility] Last Admin: 07/21/18 11:30 Dose: 40 mg Potassium Chloride (Potassium Chloride Oral Soln) 60 meq PO DAILY [facility] Last Admin: 07/21/18 11:30 Dose: 60 meq Senna/Docusate Sodium (Senokot S 50 Mg-8.6 Mg) 1 tab PO HS [facility] Last Admin: 07/21/18 21:26 Dose: 1 tab Sodium Bicarbonate (Sodium Bicarbonate Tab) 650 mg PO BID [facility] Last Admin: 07/21/18 17:50 Dose: 650 mg Tamsulosin HCl (Flomax) 0.4 mg PO HS [facility] Last Admin: 07/21/18 21:26 Dose: 0.4 mg - Labs Labs: 07/22/18 05:45 07/22/18 05:45 PT 14.8 Seconds (9.8-13.1) H 07/19/18 20:20 INR 1.3 07/19/18 20:20 APTT 29.2 Seconds (25.6-37.1) 07/19/18 20:20 - Constitutional Appears: Non-toxic, No Acute Distress, Confused, Cachectic, Chronically Ill - Head Exam Head Exam: ATRAUMATIC, NORMOCEPHALIC - Eye Exam Eye Exam: EOMI - ENT Exam ENT Exam: Mucous Membranes Moist - Respiratory Exam Respiratory Exam: NORMAL BREATHING PATTERN - Cardiovascular Exam Cardiovascular Exam: REGULAR RHYTHM - GI/Abdominal Exam GI & Abdominal Exam: Soft. absent: Tenderness - Extremities Exam Extremities Exam: absent: Calf Tenderness, Pedal Edema - Neurological Exam Neurological Exam: Altered, Awake - Psychiatric Exam Psychiatric exam: Normal Affect, Normal Mood - Skin Skin Exam: Dry, Intact, Normal Color, Warm. absent: Erythema Additional comments: portacath site skin is clean and dry with no edema, erythema or fluctuance Assessment and Plan - Assessment and Plan (Free Text) Assessment: 78 yr old male with Klebsiella UTI and concommitant + blood cx Plan: All repeat blood cultures negative no further surgical management at this time d/w Dr. Mark Can, PGY 1
--- NOTE | 2018-07-22 09:52 | PN ---
DATE: 07/22/2018 SUBJECTIVE: The patient seen and examined. Interim events noted. The patient remains in regular medical floor. Awake, responsive, chronically sick. Complains of multiple pains, controlled with current pain medication. No new complaint. No chest pain. No shortness of breath. PHYSICAL EXAMINATION: GENERAL: The patient is in no acute distress. VITAL SIGNS: Stable. HEART: S1 and S2, normal, regular. LUNGS: Good bilateral air exchange. ABDOMEN: Soft, nontender. EXTREMITIES: No edema. No calf swelling. No tenderness. No acute ischemia. CENTRAL NERVOUS SYSTEM: Essentially unchanged. DIAGNOSTIC DATA: Available diagnostic data reviewed. Nephrostomy tube was changed. ASSESSMENT AND PLAN: The patient is hemodynamically stable, but long-term prognosis remains poor due to stage IV cancer. Plan as ordered. Vinay Henderson MD
[2018-07-22] MEDS: Enoxaparin 40 mg Syringe SC SCH (10:52)
[2018-07-22] MEDS: Potassium Chloride 20 mEq/15 ml LIQ UD PO SCH ×2 (10:52→17:42)
[2018-07-22] MEDS: cefTRIAXone 2 GM in Sodium Chloride 0.9% 100 ML IVPB SCH (10:54)
--- NOTE | 2018-07-22 15:06 | RAD ---
Exchange of left nephrostomy catheter and left nephrostogram History: Leaking left-sided nephrostomy. Comparison: Comparison is made to CT of the abdomen and pelvis from 07/18/2018. Anesthesia: Local lidocaine and managed anesthesia care. Procedure and findings: Informed consent was obtained from the patient after discussing relative risks and benefits. The left flank region including the existing catheter was prepped and draped in the usual sterile techniques. Initial fluoroscopic image of the left sided nephrostomy catheter was obtained. A small amount of contrast elevated with sterile saline was introduced into the existing catheter demonstrating opacification of the left renal collecting system. The catheter was then cut and an Amplatz guidewire was introduced into the left renal pelvis. Using exchange right technique and under fluoroscopy, the old catheter was removed and a new 8 Yi there is catheter was introduced with the locking loop formed within the left renal collecting system. The catheter was sutured to the skin and secured. A sterile dressing was applied. Positioning of the catheter was confirmed by reinjected small amount of contrast mixed with saline. The locking loop was confirmed to be within the left renal collecting system. Patient tolerated the procedure well. Impression: Fluoroscopy guided exchange of left-sided nephrostomy catheter with nephrostogram.
[2018-07-22] MEDS: Sodium Chloride 0.9% 1,000 ML IV SCH ×2 (17:41→21:21)
[2018-07-22] MEDS: Docusate-Senna 50 mg-8.6 mg Tab PO SCH (21:24)
[2018-07-23] MEDS: Enoxaparin 40 mg Syringe SC SCH (09:38)
[2018-07-23] MEDS: cefTRIAXone 2 GM in Sodium Chloride 0.9% 100 ML IVPB SCH (09:38)
[2018-07-23] MEDS: Potassium Chloride 20 mEq/15 ml LIQ UD PO SCH (09:49)
--- NOTE | 2018-07-23 13:53 | PN ---
DATE: 07/23/2018 SUBJECTIVE: The patient seen and examined. Interim events noted. Consults noted and appreciated. The patient remains in regular medical floor with observation for safety. The patient is sleeping, arousable, not a very good historian, but denies any pain at the moment. The patient has chronic pain, which is controlled with current pain management. PHYSICAL EXAMINATION: GENERAL: The patient is in no acute distress. VITAL SIGNS: Stable. Physical exam is essentially unchanged. DIAGNOSTIC DATA: Available diagnostic data reviewed. ASSESSMENT AND PLAN: Overall, the patient is medically stable. Plan as ordered. Vinay Henderson MD
[2018-07-23] MEDS: Potassium Chl 20mEq & D5W 1,000 ML IV SCH ×3 (15:07→15:17)
[2018-07-23] MEDS: Docusate-Senna 50 mg-8.6 mg Tab PO SCH (21:16)
[2018-07-24] MEDS: Potassium Chl 20mEq & D5W 1,000 ML IV SCH ×2 (05:56→22:42)
[2018-07-24 07:24] LABS: HEMOGLOBIN 7.6 g/dL (12.0-18.0); MEAN CELL VOLUME 92.3 fl (80.0-94.0); MEAN CORPUSCULAR HEMOGLOBIN 30.3 pg (27.0-31.0); MEAN CORPUSCULAR HGB CONC 32.8 g/dL (33.0-37.0); RBC 2.5 Mil/uL (4.40-5.90); RED CELL DISTRIBUTION WIDTH 19.3 % (11.5-14.5); WHITE BLOOD COUNT 4.8 K/uL (4.8-10.8)
[2018-07-24 07:57] LABS: ALB/GLOB RATIO 0.7 (1.0-2.1); ALBUMIN 2.3 g/dL (3.5-5.0); ALT/SGPT 36 U/L (21-72); AST/SGOT 37 U/L (17-59); BLOOD UREA NITROGEN 16 mg/dl (9-20); CALCIUM 7.9 mg/dL (8.4-10.2); GFR NON-AFRICAN AMERICAN > 60
[2018-07-24] MEDS: Enoxaparin 40 mg Syringe SC SCH (08:50)
[2018-07-24] MEDS: Potassium Chloride 20 mEq/15 ml LIQ UD PO SCH (08:51)
--- NOTE | 2018-07-24 09:45 | PN ---
DATE: 07/24/2018 SUBJECTIVE: The patient seen and examined. Interim events noted. The patient remains in regular medical floor with observation for safety. The patient is awake, responsive, conversant. Still complains of significant pain. Pain medication adequately. No new complaint of chest pain or shortness of breath. PHYSICAL EXAMINATION: GENERAL: The patient is in no acute distress. VITAL SIGNS: Stable. HEART: S1 and S2, normal, regular. LUNGS: Good bilateral air exchange. ABDOMEN: Soft, nontender. Nephrostomy tubes are in good position and functioning. EXTREMITIES: No edema. No calf swelling. No tenderness. No acute ischemia. CENTRAL NERVOUS SYSTEM: Essentially unchanged. DIAGNOSTIC DATA: Available diagnostic data reviewed. ASSESSMENT AND PLAN: Overall, the patient's general medical condition is stable, although long-term functional prognosis remains poor due to stage IV cancer. Plan as ordered. Case and plan discussed with the patient. Vinay Henderson MD
[2018-07-24] MEDS: cefTRIAXone 2 GM in Sodium Chloride 0.9% 100 ML IVPB SCH (11:37)
--- NOTE | 2018-07-24 18:23 | CP.PCM.PN ---
Subjective - Date & Time of Evaluation Date of Evaluation: 07/21/18 Time of Evaluation: 12:00 - Subjective Subjective: Appears comfortable, confused Objective - Vital Signs/Intake and Output Vital Signs (last 24 hours): Temp Pulse Resp BP Pulse Ox 98 F 89 18 138/67 96 07/24/18 16:33 07/24/18 16:33 07/24/18 16:33 07/24/18 16:33 07/24/18 16:33 Intake and Output: 07/24/18 07/24/18 06:59 18:59 Intake Total 950 Output Total 450 Balance 500 - Medications Medications: Current Medications Acetaminophen (Tylenol 325mg Tab) 325 mg PO Q6 PRN PRN Reason: Pain, Mild (1-3) Last Admin: 07/24/18 15:13 Dose: 325 mg Alprazolam (Xanax) 0.25 mg PO Q6 PRN PRN Reason: Anxiety Stop: 07/25/18 04:01 Last Admin: 07/20/18 21:18 Dose: 0.25 mg Bupropion HCl (Wellbutrin) 75 mg PO DAILY [facility] Last Admin: 07/24/18 08:52 Dose: 75 mg Fentanyl (Duragesic) 1 patch TD Q48H [facility]; Protocol Last Admin: 07/23/18 12:01 Dose: 1 patch Potassium Chloride/Dextrose (Potassium Chl 20 Meq In D5w) 1,000 mls @ 75 mls/hr IV .[id number] [facility] Last Admin: 07/24/18 05:56 Dose: 75 mls/hr Sodium Chloride (Sodium Chloride 0.9%) 1,000 mls @ 40 mls/hr IV .Q24H [facility] Last Admin: 07/22/18 21:21 Dose: Not Given Ceftriaxone Sodium 2 gm/ (Sodium Chloride) 100 mls @ 100 mls/hr IVPB DAILY [facility]; Protocol Last Admin: 07/24/18 11:37 Dose: 100 mls/hr Lactulose (Enulose) 20 gm PO DAILY PRN PRN Reason: Constipation Last Admin: 07/09/18 09:14 Dose: 20 gm Lorazepam (Ativan) 0.5 mg IVP Q8 PRN PRN Reason: Agitation Last Admin: 07/23/18 00:51 Dose: 0.5 mg Ondansetron HCl (Zofran Inj) 4 mg IVP Q6 PRN PRN Reason: Nausea/Vomiting Last Admin: 07/07/18 09:47 Dose: 4 mg Oxycodone HCl (Oxycodone Immediate Release Tab) 10 mg PO Q8 PRN PRN Reason: Pain, moderate (4-7) Pantoprazole Sodium (Protonix Inj) 40 mg IVP DAILY [facility] Last Admin: 07/24/18 08:52 Dose: 40 mg Potassium Chloride (Potassium Chloride Oral Soln) 60 meq PO DAILY [facility] Last Admin: 07/24/18 08:51 Dose: 60 meq Senna/Docusate Sodium (Senokot S 50 Mg-8.6 Mg) 1 tab PO HS [facility] Last Admin: 07/23/18 21:16 Dose: 1 tab Sodium Bicarbonate (Sodium Bicarbonate Tab) 650 mg PO BID [facility] Last Admin: 07/24/18 08:52 Dose: 650 mg Tamsulosin HCl (Flomax) 0.4 mg PO HS [facility] Last Admin: 07/23/18 21:16 Dose: 0.4 mg - Labs Labs: 07/24/18 05:30 07/24/18 05:30 PT 14.8 Seconds (9.8-13.1) H 07/19/18 20:20 INR 1.3 07/19/18 20:20 APTT 29.2 Seconds (25.6-37.1) 07/19/18 20:20 - Head Exam Head Exam: ATRAUMATIC - Eye Exam Eye Exam: Normal appearance - ENT Exam ENT Exam: Mucous Membranes Dry - Respiratory Exam Respiratory Exam: NORMAL BREATHING PATTERN - Cardiovascular Exam Cardiovascular Exam: +S1, +S2 - GI/Abdominal Exam GI & Abdominal Exam: Normal Bowel Sounds Assessment and Plan (1) DVT (deep venous thrombosis) Assessment & Plan: provoked from malignancy placed back on lovenox prophylaxis H/H stable; recommend trial of therapeutic lovenox if no further bleeding and stable H/H Status: Acute (2) Anemia Assessment & Plan: chronic disease transfusion support PRN Status: Acute (3) Bladder cancer Assessment & Plan: stage IV has not received chemotherapy in several months s/p palliative radiotherapy deferred hospice had repeat code status discussion with son; wants to think about it Status: Chronic
--- NOTE | 2018-07-24 18:26 | CP.PCM.PN ---
Subjective - Date & Time of Evaluation Date of Evaluation: 07/22/18 Time of Evaluation: 19:00 - Subjective Subjective: Confused Objective - Vital Signs/Intake and Output Vital Signs (last 24 hours): Temp Pulse Resp BP Pulse Ox 98 F 89 18 138/67 96 07/24/18 16:33 07/24/18 16:33 07/24/18 16:33 07/24/18 16:33 07/24/18 16:33 Intake and Output: 07/24/18 07/24/18 06:59 18:59 Intake Total 950 Output Total 450 Balance 500 - Medications Medications: Current Medications Acetaminophen (Tylenol 325mg Tab) 325 mg PO Q6 PRN PRN Reason: Pain, Mild (1-3) Last Admin: 07/24/18 15:13 Dose: 325 mg Alprazolam (Xanax) 0.25 mg PO Q6 PRN PRN Reason: Anxiety Stop: 07/25/18 04:01 Last Admin: 07/20/18 21:18 Dose: 0.25 mg Bupropion HCl (Wellbutrin) 75 mg PO DAILY [facility] Last Admin: 07/24/18 08:52 Dose: 75 mg Fentanyl (Duragesic) 1 patch TD Q48H [facility]; Protocol Last Admin: 07/23/18 12:01 Dose: 1 patch Potassium Chloride/Dextrose (Potassium Chl 20 Meq In D5w) 1,000 mls @ 75 mls/hr IV .[id number] [facility] Last Admin: 07/24/18 05:56 Dose: 75 mls/hr Sodium Chloride (Sodium Chloride 0.9%) 1,000 mls @ 40 mls/hr IV .Q24H [facility] Last Admin: 07/22/18 21:21 Dose: Not Given Ceftriaxone Sodium 2 gm/ (Sodium Chloride) 100 mls @ 100 mls/hr IVPB DAILY [facility]; Protocol Last Admin: 07/24/18 11:37 Dose: 100 mls/hr Lactulose (Enulose) 20 gm PO DAILY PRN PRN Reason: Constipation Last Admin: 07/09/18 09:14 Dose: 20 gm Lorazepam (Ativan) 0.5 mg IVP Q8 PRN PRN Reason: Agitation Last Admin: 07/23/18 00:51 Dose: 0.5 mg Ondansetron HCl (Zofran Inj) 4 mg IVP Q6 PRN PRN Reason: Nausea/Vomiting Last Admin: 07/07/18 09:47 Dose: 4 mg Oxycodone HCl (Oxycodone Immediate Release Tab) 10 mg PO Q8 PRN PRN Reason: Pain, moderate (4-7) Pantoprazole Sodium (Protonix Inj) 40 mg IVP DAILY [facility] Last Admin: 07/24/18 08:52 Dose: 40 mg Potassium Chloride (Potassium Chloride Oral Soln) 60 meq PO DAILY [facility] Last Admin: 07/24/18 08:51 Dose: 60 meq Senna/Docusate Sodium (Senokot S 50 Mg-8.6 Mg) 1 tab PO HS [facility] Last Admin: 07/23/18 21:16 Dose: 1 tab Sodium Bicarbonate (Sodium Bicarbonate Tab) 650 mg PO BID [facility] Last Admin: 07/24/18 08:52 Dose: 650 mg Tamsulosin HCl (Flomax) 0.4 mg PO HS [facility] Last Admin: 07/23/18 21:16 Dose: 0.4 mg - Labs Labs: 07/24/18 05:30 07/24/18 05:30 PT 14.8 Seconds (9.8-13.1) H 07/19/18 20:20 INR 1.3 07/19/18 20:20 APTT 29.2 Seconds (25.6-37.1) 07/19/18 20:20 - Head Exam Head Exam: ATRAUMATIC - Eye Exam Eye Exam: Normal appearance - ENT Exam ENT Exam: Mucous Membranes Dry - Respiratory Exam Respiratory Exam: NORMAL BREATHING PATTERN - Cardiovascular Exam Cardiovascular Exam: +S1, +S2 - GI/Abdominal Exam GI & Abdominal Exam: Normal Bowel Sounds Assessment and Plan (1) DVT (deep venous thrombosis) Assessment & Plan: provoked from malignancy placed back on lovenox prophylaxis H/H stable; recommend trial of therapeutic lovenox if no further bleeding and stable H/H Status: Acute (2) Anemia Assessment & Plan: chronic disease transfusion support PRN Status: Acute (3) Bladder cancer Assessment & Plan: stage IV has not received chemotherapy in several months s/p palliative radiotherapy deferred hospice had repeat code status discussion with son; wants to think about it Status: Chronic
--- NOTE | 2018-07-24 18:28 | CP.PCM.PN ---
Subjective - Date & Time of Evaluation Date of Evaluation: 07/23/18 Time of Evaluation: 17:00 - Subjective Subjective: Confused Objective - Vital Signs/Intake and Output Vital Signs (last 24 hours): Temp Pulse Resp BP Pulse Ox 98 F 89 18 138/67 96 07/24/18 16:33 07/24/18 16:33 07/24/18 16:33 07/24/18 16:33 07/24/18 16:33 Intake and Output: 07/24/18 07/24/18 06:59 18:59 Intake Total 950 Output Total 450 Balance 500 - Medications Medications: Current Medications Acetaminophen (Tylenol 325mg Tab) 325 mg PO Q6 PRN PRN Reason: Pain, Mild (1-3) Last Admin: 07/24/18 15:13 Dose: 325 mg Alprazolam (Xanax) 0.25 mg PO Q6 PRN PRN Reason: Anxiety Stop: 07/25/18 04:01 Last Admin: 07/20/18 21:18 Dose: 0.25 mg Bupropion HCl (Wellbutrin) 75 mg PO DAILY [facility] Last Admin: 07/24/18 08:52 Dose: 75 mg Fentanyl (Duragesic) 1 patch TD Q48H [facility]; Protocol Last Admin: 07/23/18 12:01 Dose: 1 patch Potassium Chloride/Dextrose (Potassium Chl 20 Meq In D5w) 1,000 mls @ 75 mls/hr IV .[id number] [facility] Last Admin: 07/24/18 05:56 Dose: 75 mls/hr Sodium Chloride (Sodium Chloride 0.9%) 1,000 mls @ 40 mls/hr IV .Q24H [facility] Last Admin: 07/22/18 21:21 Dose: Not Given Ceftriaxone Sodium 2 gm/ (Sodium Chloride) 100 mls @ 100 mls/hr IVPB DAILY [facility]; Protocol Last Admin: 07/24/18 11:37 Dose: 100 mls/hr Lactulose (Enulose) 20 gm PO DAILY PRN PRN Reason: Constipation Last Admin: 07/09/18 09:14 Dose: 20 gm Lorazepam (Ativan) 0.5 mg IVP Q8 PRN PRN Reason: Agitation Last Admin: 07/23/18 00:51 Dose: 0.5 mg Ondansetron HCl (Zofran Inj) 4 mg IVP Q6 PRN PRN Reason: Nausea/Vomiting Last Admin: 07/07/18 09:47 Dose: 4 mg Oxycodone HCl (Oxycodone Immediate Release Tab) 10 mg PO Q8 PRN PRN Reason: Pain, moderate (4-7) Pantoprazole Sodium (Protonix Inj) 40 mg IVP DAILY [facility] Last Admin: 07/24/18 08:52 Dose: 40 mg Potassium Chloride (Potassium Chloride Oral Soln) 60 meq PO DAILY [facility] Last Admin: 07/24/18 08:51 Dose: 60 meq Senna/Docusate Sodium (Senokot S 50 Mg-8.6 Mg) 1 tab PO HS [facility] Last Admin: 07/23/18 21:16 Dose: 1 tab Sodium Bicarbonate (Sodium Bicarbonate Tab) 650 mg PO BID [facility] Last Admin: 07/24/18 08:52 Dose: 650 mg Tamsulosin HCl (Flomax) 0.4 mg PO HS [facility] Last Admin: 07/23/18 21:16 Dose: 0.4 mg - Labs Labs: 07/24/18 05:30 07/24/18 05:30 PT 14.8 Seconds (9.8-13.1) H 07/19/18 20:20 INR 1.3 07/19/18 20:20 APTT 29.2 Seconds (25.6-37.1) 07/19/18 20:20 - Constitutional Appears: Cachectic - Head Exam Head Exam: ATRAUMATIC - Eye Exam Eye Exam: Normal appearance - ENT Exam ENT Exam: Mucous Membranes Dry - Cardiovascular Exam Cardiovascular Exam: +S1, +S2 - GI/Abdominal Exam GI & Abdominal Exam: Normal Bowel Sounds Assessment and Plan (1) DVT (deep venous thrombosis) Assessment & Plan: provoked from malignancy placed back on lovenox prophylaxis H/H stable Status: Acute (2) Anemia Assessment & Plan: chronic disease transfusion support PRN Status: Acute (3) Bladder cancer Assessment & Plan: stage IV has not received chemotherapy in several months s/p palliative radiotherapy deferred hospice had repeat code status discussion with son; wants to think about it Status: Chronic
[2018-07-24] MEDS: oxyCODONE 10 mg Immediate Release Tab PO PRN (18:30)
--- NOTE | 2018-07-24 18:30 | CP.PCM.PN ---
Subjective - Date & Time of Evaluation Date of Evaluation: 07/24/18 Time of Evaluation: 18:00 - Subjective Subjective: Confused Discussed with pts brother in law about hospice and code status - he will reach out to the patients children Objective - Vital Signs/Intake and Output Vital Signs (last 24 hours): Temp Pulse Resp BP Pulse Ox 98 F 89 18 138/67 96 07/24/18 16:33 07/24/18 16:33 07/24/18 16:33 07/24/18 16:33 07/24/18 16:33 Intake and Output: 07/24/18 07/24/18 06:59 18:59 Intake Total 950 Output Total 450 Balance 500 - Medications Medications: Current Medications Acetaminophen (Tylenol 325mg Tab) 325 mg PO Q6 PRN PRN Reason: Pain, Mild (1-3) Last Admin: 07/24/18 15:13 Dose: 325 mg Alprazolam (Xanax) 0.25 mg PO Q6 PRN PRN Reason: Anxiety Stop: 07/25/18 04:01 Last Admin: 07/20/18 21:18 Dose: 0.25 mg Bupropion HCl (Wellbutrin) 75 mg PO DAILY [facility] Last Admin: 07/24/18 08:52 Dose: 75 mg Fentanyl (Duragesic) 1 patch TD Q48H [facility]; Protocol Last Admin: 07/23/18 12:01 Dose: 1 patch Potassium Chloride/Dextrose (Potassium Chl 20 Meq In D5w) 1,000 mls @ 75 mls/hr IV .[id number] [facility] Last Admin: 07/24/18 05:56 Dose: 75 mls/hr Sodium Chloride (Sodium Chloride 0.9%) 1,000 mls @ 40 mls/hr IV .Q24H [facility] Last Admin: 07/22/18 21:21 Dose: Not Given Ceftriaxone Sodium 2 gm/ (Sodium Chloride) 100 mls @ 100 mls/hr IVPB DAILY [facility]; Protocol Last Admin: 07/24/18 11:37 Dose: 100 mls/hr Lactulose (Enulose) 20 gm PO DAILY PRN PRN Reason: Constipation Last Admin: 07/09/18 09:14 Dose: 20 gm Lorazepam (Ativan) 0.5 mg IVP Q8 PRN PRN Reason: Agitation Last Admin: 07/23/18 00:51 Dose: 0.5 mg Ondansetron HCl (Zofran Inj) 4 mg IVP Q6 PRN PRN Reason: Nausea/Vomiting Last Admin: 07/07/18 09:47 Dose: 4 mg Oxycodone HCl (Oxycodone Immediate Release Tab) 10 mg PO Q8 PRN PRN Reason: Pain, moderate (4-7) Pantoprazole Sodium (Protonix Inj) 40 mg IVP DAILY [facility] Last Admin: 07/24/18 08:52 Dose: 40 mg Potassium Chloride (Potassium Chloride Oral Soln) 60 meq PO DAILY [facility] Last Admin: 07/24/18 08:51 Dose: 60 meq Senna/Docusate Sodium (Senokot S 50 Mg-8.6 Mg) 1 tab PO HS [facility] Last Admin: 07/23/18 21:16 Dose: 1 tab Sodium Bicarbonate (Sodium Bicarbonate Tab) 650 mg PO BID [facility] Last Admin: 07/24/18 08:52 Dose: 650 mg Tamsulosin HCl (Flomax) 0.4 mg PO HS [facility] Last Admin: 07/23/18 21:16 Dose: 0.4 mg - Labs Labs: 07/24/18 05:30 07/24/18 05:30 PT 14.8 Seconds (9.8-13.1) H 07/19/18 20:20 INR 1.3 07/19/18 20:20 APTT 29.2 Seconds (25.6-37.1) 07/19/18 20:20 - Head Exam Head Exam: ATRAUMATIC - Eye Exam Eye Exam: Normal appearance - ENT Exam ENT Exam: Mucous Membranes Dry - Respiratory Exam Respiratory Exam: NORMAL BREATHING PATTERN - Cardiovascular Exam Cardiovascular Exam: +S1, +S2 - GI/Abdominal Exam GI & Abdominal Exam: Normal Bowel Sounds Assessment and Plan (1) DVT (deep venous thrombosis) Assessment & Plan: provoked from malignancy was on lovenox prophylaxis but held due to anemia Status: Acute (2) Anemia Assessment & Plan: chronic disease transfusion support PRN Status: Acute (3) Bladder cancer Assessment & Plan: stage IV has not received chemotherapy in several months s/p palliative radiotherapy deferred hospice had repeat code status discussion with son; wants to think about it Status: Chronic
[2018-07-24] MEDS: Docusate-Senna 50 mg-8.6 mg Tab PO SCH (22:51)
[2018-07-25] MEDS: oxyCODONE 10 mg Immediate Release Tab PO PRN ×3 (02:58→15:53)
[2018-07-25] MEDS: Potassium Chl 20mEq & D5W 1,000 ML IV SCH ×2 (04:04→20:54)
[2018-07-25 06:35] LABS: HEMOGLOBIN 8.2 g/dL (12.0-18.0); MEAN CELL VOLUME 93.4 fl (80.0-94.0); MEAN CORPUSCULAR HEMOGLOBIN 30.1 pg (27.0-31.0); MEAN CORPUSCULAR HGB CONC 32.2 g/dL (33.0-37.0); RBC 2.74 Mil/uL (4.40-5.90); RED CELL DISTRIBUTION WIDTH 19.2 % (11.5-14.5); WHITE BLOOD COUNT 5.9 K/uL (4.8-10.8)
[2018-07-25 06:48] LABS: ALB/GLOB RATIO 0.7 (1.0-2.1); ALBUMIN 2.5 g/dL (3.5-5.0); ALT/SGPT 31 U/L (21-72); AST/SGOT 34 U/L (17-59); BLOOD UREA NITROGEN 16 mg/dl (9-20); GFR NON-AFRICAN AMERICAN > 60
[2018-07-25] MEDS: cefTRIAXone 2 GM in Sodium Chloride 0.9% 100 ML IVPB SCH (08:29)
--- NOTE | 2018-07-25 12:43 | PN ---
DATE: 07/25/2018 SUBJECTIVE: The patient seen and examined. Interim events noted. Consults noted and appreciated. Hematology and oncology followup and intervention noted and appreciated. The patient remains in regular medical floor with observation. The patient's pain was not controlled and telephone orders were given. The patient still complains of pain and requests more frequent oxycodone. No new complaint of chest pain or shortness of breath. This pain which he is complaining is same pain from his stage IV cancer. PHYSICAL EXAMINATION: GENERAL: The patient is in no acute distress. Chronically sick looking elderly male in some discomfort due to pain. VITAL SIGNS: Stable. HEART EXAM: S1, S2. Normal and regular. LUNGS: Good bilateral air exchange. ABDOMEN: Soft and nontender. The patient has nephrostomy tube in good position and functioning. EXTREMITY EXAM: No calf swelling. No tenderness. No acute ischemia. CENTRAL NERVOUS SYSTEM EXAM: Essentially unchanged. DIAGNOSTIC DATA: Available diagnostic data reviewed. Hemoglobin remains 11.6 and low, but was evaluated by Hematology. ASSESSMENT AND PLAN: Overall the patient is clinically and hemodynamically stable although in some pain and also [facility] prognosis remains poor due to stage IV cancer. Plan as ordered. Case and plan discussed with the patient. Vinay Henderson MD
--- NOTE | 2018-07-25 16:44 | CP.PCM.PN ---
Subjective - Date & Time of Evaluation Date of Evaluation: 07/25/18 Time of Evaluation: 16:44 - Subjective Subjective: ID Note- Pt. seen and examined today. remains weak and somewhat confused. afebrile Objective - Vital Signs/Intake and Output Vital Signs (last 24 hours): Temp Pulse Resp BP Pulse Ox 98.4 F 105 H 19 128/70 98 07/25/18 09:02 07/25/18 09:02 07/25/18 09:02 07/25/18 09:02 07/25/18 09:02 Intake and Output: 07/25/18 07/25/18 06:59 18:59 Output Total 1050 Balance -1050 - Medications Medications: Current Medications Acetaminophen (Tylenol 325mg Tab) 325 mg PO Q6 PRN PRN Reason: Pain, Mild (1-3) Last Admin: 07/24/18 15:13 Dose: 325 mg Bupropion HCl (Wellbutrin) 75 mg PO DAILY [facility] Last Admin: 07/25/18 08:25 Dose: 75 mg Fentanyl (Duragesic) 1 patch TD Q48H [facility]; Protocol Last Admin: 07/25/18 15:55 Dose: 1 patch Potassium Chloride/Dextrose (Potassium Chl 20 Meq In D5w) 1,000 mls @ 75 mls/hr IV .[id number] [facility] Last Admin: 07/25/18 04:04 Dose: Not Given Sodium Chloride (Sodium Chloride 0.9%) 1,000 mls @ 40 mls/hr IV .Q24H [facility] Last Admin: 07/22/18 21:21 Dose: Not Given Ceftriaxone Sodium 2 gm/ (Sodium Chloride) 100 mls @ 100 mls/hr IVPB DAILY [facility]; Protocol Last Admin: 07/25/18 08:29 Dose: 100 mls/hr Lactulose (Enulose) 20 gm PO DAILY PRN PRN Reason: Constipation Last Admin: 07/09/18 09:14 Dose: 20 gm Lorazepam (Ativan) 0.5 mg IVP Q8 PRN PRN Reason: Agitation Last Admin: 07/23/18 00:51 Dose: 0.5 mg Ondansetron HCl (Zofran Inj) 4 mg IVP Q6 PRN PRN Reason: Nausea/Vomiting Last Admin: 07/07/18 09:47 Dose: 4 mg Oxycodone HCl (Oxycodone Immediate Release Tab) 10 mg PO Q6 PRN PRN Reason: Pain, moderate (4-7) Last Admin: 07/25/18 15:53 Dose: 10 mg Pantoprazole Sodium (Protonix Inj) 40 mg IVP DAILY [facility] Last Admin: 07/25/18 08:27 Dose: 40 mg Potassium Chloride (Potassium Chloride Oral Soln) 60 meq PO DAILY [facility] Last Admin: 07/24/18 08:51 Dose: 60 meq Senna/Docusate Sodium (Senokot S 50 Mg-8.6 Mg) 1 tab PO [facility] Last Admin: 07/24/18 22:51 Dose: 1 tab Sodium Bicarbonate (Sodium Bicarbonate Tab) 650 mg PO BID [facility] Last Admin: 07/25/18 08:25 Dose: 650 mg Tamsulosin HCl (Flomax) 0.4 mg PO [facility] Last Admin: 07/24/18 22:39 Dose: 0.4 mg - Labs Labs: - Additional Findings Additional findings: - Constitutional Appears: No Acute Distress - Head Exam Head Exam: ATRAUMATIC - Eye Exam Eye Exam: EOMI, PERRL - ENT Exam ENT Exam: Normal Oropharynx - Neck Exam Neck exam: Positive for: Full Rom - Respiratory Exam Respiratory Exam: Clear to Auscultation Bilateral, NORMAL BREATHING PATTERN - Cardiovascular Exam Cardiovascular Exam: RRR, +S1, +S2 - GI/Abdominal Exam GI & Abdominal Exam: Normal Bowel Sounds, Soft Additional comments: NT, ND - Extremities Exam Extremities exam: Positive for: normal inspection - Back Exam Additional comments: b/l nephrostomy tubes in place, no surrounding erythema urine in bag clear b/l - Neurological Exam Neurological exam: agitated today skin- has small stage 1 sacral skin breakage, no discharge no surrounding erythema Laboratory Results - last 72 hr 07/22/18 07/23/18 07/23/18 21:09 06:49 11:09 WBC RBC Hgb Hct MCV MCH MCHC RDW Plt Count Sodium Potassium Chloride Carbon Dioxide Anion Gap BUN Creatinine Est GFR ( Amer) Est GFR (Non-Af Amer) POC Glucose (mg/dL) 87 84 105 Random Glucose Calcium Total Bilirubin AST ALT Alkaline Phosphatase Total Protein Albumin Globulin Albumin/Globulin Ratio 07/23/18 07/24/18 07/24/18 16:22 05:30 05:30 WBC 4.8 RBC 2.50 L Hgb 7.6 L Hct 23.1 L MCV 92.3 MCH 30.3 MCHC 32.8 L RDW 19.3 H Plt Count 117 L Sodium 139 Potassium 3.9 Chloride 111 H Carbon Dioxide 25 Anion Gap 7 L BUN 16 Creatinine 0.9 Est GFR ( Amer) > 60 Est GFR (Non-Af Amer) > 60 POC Glucose (mg/dL) 103 Random Glucose 106 Calcium 7.9 L Total Bilirubin 0.3 AST 37 ALT 36 Alkaline Phosphatase 1031 H Total Protein 5.8 L Albumin 2.3 L Globulin 3.5 Albumin/Globulin Ratio 0.7 L 07/24/18 07/24/18 07/24/18 06:24 11:07 16:20 WBC RBC Hgb Hct MCV MCH MCHC RDW Plt Count Sodium Potassium Chloride Carbon Dioxide Anion Gap BUN Creatinine Est GFR ( Amer) Est GFR (Non-Af Amer) POC Glucose (mg/dL) 96 123 H 112 H Random Glucose Calcium Total Bilirubin AST ALT Alkaline Phosphatase Total Protein Albumin Globulin Albumin/Globulin Ratio 07/24/18 07/25/18 07/25/18 22:19 05:50 05:50 WBC 5.9 RBC 2.74 L Hgb 8.2 L Hct 25.6 L MCV 93.4 MCH 30.1 MCHC 32.2 L RDW 19.2 H Plt Count 123 L Sodium 137 Potassium 4.6 Chloride 109 H Carbon Dioxide 23 Anion Gap 10 BUN 16 Creatinine 1.1 Est GFR ( Amer) > 60 Est GFR (Non-Af Amer) > 60 POC Glucose (mg/dL) 113 H Random Glucose 114 H Calcium 8.0 L Total Bilirubin 0.4 AST 34 ALT 31 Alkaline Phosphatase 1189 H Total Protein 6.2 L Albumin 2.5 L Globulin 3.7 Albumin/Globulin Ratio 0.7 L 07/25/18 07/25/18 07/25/18 06:16 11:17 16:33 WBC RBC Hgb Hct MCV MCH MCHC RDW Plt Count Sodium Potassium Chloride Carbon Dioxide Anion Gap BUN Creatinine Est GFR ( Amer) Est GFR (Non-Af Amer) POC Glucose (mg/dL) 114 H 136 H 97 Random Glucose Calcium Total Bilirubin AST ALT Alkaline Phosphatase Total Protein Albumin Globulin Albumin/Globulin Ratio Microbiology 07/21/18 17:20 Rectum Gram Stain - Final 07/21/18 17:20 Rectum Wound Culture - Final Vancomycin Resistant E.faecium Klebsiella Pneumoniae Ssp Pneu 07/16/18 11:19 Blood-Thru Central Line Blood Culture - Final NO GROWTH AFTER 5 DAYS 07/16/18 11:19 Blood-Thru Central Line Gram Stain - Final TEST NOT PERFORMED 07/16/18 08:00 Blood-Venous Blood Culture - Final NO GROWTH AFTER 5 DAYS 07/16/18 08:41 Blood-Thru Central Line Blood Culture - Final NO GROWTH AFTER 5 DAYS 07/15/18 15:03 Blood-Venous Blood Culture - Final NO GROWTH AFTER 5 DAYS 07/15/18 15:03 Blood-Venous Gram Stain - Final TEST NOT PERFORMED 07/15/18 14:56 Blood-Venous Blood Culture - Final NO GROWTH AFTER 5 DAYS 07/15/18 14:56 Blood-Venous Gram Stain - Final TEST NOT PERFORMED 07/13/18 12:32 Blood-Thru Central Line Blood Culture - Final Klebsiella Pneumoniae Ssp Pneu 07/13/18 12:32 Blood-Thru Central Line Gram Stain - Final 07/12/18 18:44 Urine,Veliz Urine Culture - Final Klebsiella Pneumoniae Ssp Pneu 07/11/18 12:32 Blood Blood Culture - Final Klebsiella Pneumoniae Ssp Pneu 07/11/18 12:32 Blood Gram Stain - Final 07/11/18 12:32 Blood Blood Culture - Final Klebsiella Pneumoniae Ssp Pneu 07/11/18 12:32 Blood Gram Stain - Final Accession No. : [id number] Patient Name / ID : GWENDOLYN BLANCA / [id number] Exam Date : 07/21/2018 11:29:12 ( Approved ) Study Comment : Sex / Age : M / 78Y Creator : Hong Palencia MD Dictator : Hong Palencia MD Grape Cutter : Radio Rigger : Hong Palencia MD Approver2 : Report Date : 07/21/2018 13:35:11 My Comment : Date of service: 07/21/2018 HISTORY: R/O rib Fx COMPARISON: 07/11/2018 FINDINGS: LUNGS: No active pulmonary disease. PLEURA: No significant pleural effusion identified, no pneumothorax apparent. CARDIOVASCULAR: No aortic atherosclerotic calcification present. Normal cardiac size. No congestive change. Right central venous infusion port noted. OSSEOUS STRUCTURES: Extensive sclerotic change noted in all visualized osseous structures suspicious for widespread sclerotic metastasis.. VISUALIZED UPPER ABDOMEN: Normal. OTHER FINDINGS: None. IMPRESSION: No infiltrate. Central venous infusion port. 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 Assessment and Plan (1) Malignant neoplasm metastatic from bladder Status: Acute (2) Obstructive uropathy Status: Acute (3) Bacteremia Status: Acute - Assessment and Plan (Free Text) Assessment: A/P- 78 year old male with stage 4 bladder cancer with bony mets and obstructive uropathy s/p TURBT and b/l nephrostomy tubes since 11/2017 s/p multiple hospitalizations and multiorganisms UTIs all treated in the past admissions s/p twice nephrostomy tube changes with most recent one in 06/08/2018 . afebrile past 11 days. no leukocytosis blood cx were reported as klebsiella pneumonia in both blood cx from 07/11/2018 last UA- + LE but negative for any nitrates urine cx 07/11/2018- K.pneumonia as well repeat blood cx from port 07/13/2018- K.pneumonia repeat blood cx from 07/15/2018 and 07/16/2018 from both port and from peripheral are all negative x 5 CXR- negative as per report. abd CT report noted flu test -neg TTE- no vegetations as per report. plan- continue with IV ceftriaxone fro e.coli bacteremi and UTI treatment day #12 needs total of 14 days of IV antibiotic for this treatment.( 2 more days). since all repeat blood cx both from port and peripheral are negative, no urgent need to d/c the port but if he spikes temp again or any other pos blood cx then the port would need to be removed. not sure why rectal cx was done but VRE and pt. was treated for VRE in past admissions and most likely colonization at this time from rectal cx. pt's overall prognosis poor in light of metastatic bladder CA . as per oncologist's note family to make decision regarding possible hospice care.
[2018-07-25] MEDS: Potassium Chloride 20 mEq/15 ml LIQ UD PO SCH (19:08)
[2018-07-25] MEDS: Docusate-Senna 50 mg-8.6 mg Tab PO SCH (22:07)
--- NOTE | 2018-07-25 22:50 | CP.PCM.PN ---
Subjective - Date & Time of Evaluation Date of Evaluation: 07/25/18 Time of Evaluation: 20:05 - Subjective Subjective: Confused, weak. Objective - Vital Signs/Intake and Output Vital Signs (last 24 hours): Temp Pulse Resp BP Pulse Ox 99.6 F 100 H 20 131/66 99 07/25/18 16:54 07/25/18 16:54 07/25/18 16:54 07/25/18 16:54 07/25/18 16:54 Intake and Output: 07/25/18 07/26/18 18:59 06:59 Intake Total 890 Output Total 1760 Balance -870 - Medications Medications: Current Medications Acetaminophen (Tylenol 325mg Tab) 325 mg PO Q6 PRN PRN Reason: Pain, Mild (1-3) Last Admin: 07/24/18 15:13 Dose: 325 mg Bupropion HCl (Wellbutrin) 75 mg PO DAILY [facility] Last Admin: 07/25/18 08:25 Dose: 75 mg Fentanyl (Duragesic) 1 patch TD Q48H [facility]; Protocol Last Admin: 07/25/18 15:55 Dose: 1 patch Potassium Chloride/Dextrose (Potassium Chl 20 Meq In D5w) 1,000 mls @ 75 mls/hr IV .[id number] [facility] Last Admin: 07/25/18 04:04 Dose: Not Given Sodium Chloride (Sodium Chloride 0.9%) 1,000 mls @ 40 mls/hr IV .Q24H [facility] Last Admin: 07/22/18 21:21 Dose: Not Given Ceftriaxone Sodium 2 gm/ (Sodium Chloride) 100 mls @ 100 mls/hr IVPB DAILY [facility]; Protocol Last Admin: 07/25/18 08:29 Dose: 100 mls/hr Potassium Chloride/Dextrose (Potassium Chl 20 Meq In D5w) 1,000 mls @ 75 mls/hr IV .[id number] [facility] Stop: 07/26/18 18:38 Last Admin: 07/25/18 20:54 Dose: 75 mls/hr Lactulose (Enulose) 20 gm PO DAILY PRN PRN Reason: Constipation Last Admin: 07/09/18 09:14 Dose: 20 gm Lorazepam (Ativan) 0.5 mg IVP Q8 PRN PRN Reason: Agitation Last Admin: 07/23/18 00:51 Dose: 0.5 mg Ondansetron HCl (Zofran Inj) 4 mg IVP Q6 PRN PRN Reason: Nausea/Vomiting Last Admin: 07/07/18 09:47 Dose: 4 mg Oxycodone HCl (Oxycodone Immediate Release Tab) 10 mg PO Q6 PRN PRN Reason: Pain, moderate (4-7) Last Admin: 07/25/18 15:53 Dose: 10 mg Pantoprazole Sodium (Protonix Inj) 40 mg IVP DAILY [facility] Last Admin: 07/25/18 08:27 Dose: 40 mg Potassium Chloride (Potassium Chloride Oral Soln) 60 meq PO DAILY [facility] Last Admin: 07/25/18 19:08 Dose: Not Given Senna/Docusate Sodium (Senokot S 50 Mg-8.6 Mg) 1 tab PO [facility] Last Admin: 07/25/18 22:07 Dose: 1 tab Sodium Bicarbonate (Sodium Bicarbonate Tab) 650 mg PO BID [facility] Last Admin: 07/25/18 19:08 Dose: 650 mg Tamsulosin HCl (Flomax) 0.4 mg PO [facility] Last Admin: 07/25/18 22:06 Dose: 0.4 mg - Labs Labs: 07/25/18 05:50 07/25/18 05:50 PT 14.8 Seconds (9.8-13.1) H 07/19/18 20:20 INR 1.3 07/19/18 20:20 APTT 29.2 Seconds (25.6-37.1) 07/19/18 20:20 - Head Exam Head Exam: ATRAUMATIC - Eye Exam Eye Exam: Normal appearance - ENT Exam ENT Exam: Mucous Membranes Dry - Respiratory Exam Respiratory Exam: NORMAL BREATHING PATTERN - Cardiovascular Exam Cardiovascular Exam: +S1, +S2 - GI/Abdominal Exam GI & Abdominal Exam: Normal Bowel Sounds Assessment and Plan (1) DVT (deep venous thrombosis) Assessment & Plan: provoked from malignancy was on lovenox prophylaxis but held due to anemia Status: Acute (2) Anemia Assessment & Plan: chronic disease transfusion support PRN Status: Acute (3) Bladder cancer Assessment & Plan: stage IV has not received chemotherapy in several months s/p palliative radiotherapy deferred hospice had repeat code status discussion with son; wants to think about it Status: Chronic
[2018-07-26] MEDS: oxyCODONE 10 mg Immediate Release Tab PO PRN ×2 (01:12→08:45)
[2018-07-26 06:33] LABS: HEMOGLOBIN 7.3 g/dL (12.0-18.0); MEAN CELL VOLUME 92.7 fl (80.0-94.0); MEAN CORPUSCULAR HEMOGLOBIN 29.8 pg (27.0-31.0); MEAN CORPUSCULAR HGB CONC 32.2 g/dL (33.0-37.0); RBC 2.46 Mil/uL (4.40-5.90); RED CELL DISTRIBUTION WIDTH 18.9 % (11.5-14.5); WHITE BLOOD COUNT 6.1 K/uL (4.8-10.8)
[2018-07-26] MEDS: Potassium Chl 20mEq & D5W 1,000 ML IV SCH ×2 (06:41→22:22)
[2018-07-26 06:48] LABS: ALB/GLOB RATIO 0.7 (1.0-2.1); ALBUMIN 2.4 g/dL (3.5-5.0); ALT/SGPT 38 U/L (21-72); AST/SGOT 35 U/L (17-59); BLOOD UREA NITROGEN 17 mg/dl (9-20); CALCIUM 7.8 mg/dL (8.4-10.2); GFR NON-AFRICAN AMERICAN 58
--- NOTE | 2018-07-26 09:09 | PN ---
DATE: 07/26/2018 SUBJECTIVE: The patient seen and examined. Interim events noted. The patient now is out of isolation, awake, responsive, feels okay. Denies any chest pain nor shortness of breath, but the patient does have generalized pain which is adequately controlled with current pain medication. PHYSICAL EXAMINATION: GENERAL: The patient is in no acute distress. VITAL SIGNS: Stable. HEART: S1, S2 normal, regular. LUNGS: Good bilateral air exchange. ABDOMEN: Soft, nontender. EXTREMITIES: No edema. No calf swelling. No tenderness. No acute ischemia. [employer]OM[employer]ION[employer] MARKETING AGENT: Exam is essentially unchanged. DIAGNOSTIC DATA: Diagnostic data available, diagnostic data reviewed. Nephrostomy tube in good position and functioning. Infectious Disease followup and intervention noted and appreciated. PLAN: As ordered. Vinay Henderson MD
[2018-07-26] MEDS: cefTRIAXone 2 GM in Sodium Chloride 0.9% 100 ML IVPB SCH (10:00)
[2018-07-26] MEDS: Potassium Chloride 20 mEq/15 ml LIQ UD PO SCH (11:48)
--- NOTE | 2018-07-26 13:25 | CP.PCM.PCO ---
Assessment/Plan - Assessment/Plan Assessment (Free Text): Patient on IV antibiotics, Ceftriaxone 2gm daily for treatment of Bacteria, recurrent UTI, and Klebsiella positive stool with VRE. Patient requires IV antibiotics for another 7-[address] Henderson.
--- NOTE | 2018-07-26 21:43 | CP.PCM.PN ---
Subjective - Date & Time of Evaluation Date of Evaluation: 07/26/18 Time of Evaluation: 18:00 - Subjective Subjective: Appears comfortable, asking for soda. Objective - Vital Signs/Intake and Output Vital Signs (last 24 hours): Temp Pulse Resp BP Pulse Ox 98 F 90 18 107/62 99 07/26/18 18:58 07/26/18 18:58 07/26/18 18:58 07/26/18 18:58 07/26/18 16:25 Intake and Output: 07/26/18 07/27/18 18:59 06:59 Intake Total 0 325 Output Total 1150 Balance -1150 325 - Medications Medications: Current Medications Acetaminophen (Tylenol 325mg Tab) 325 mg PO Q6 PRN PRN Reason: Pain, Mild (1-3) Last Admin: 07/26/18 16:12 Dose: 325 mg Acetaminophen (Tylenol 325mg Tab) 650 mg PO Q6 PRN PRN Reason: Fever >100.4 F Bupropion HCl (Wellbutrin) 75 mg PO DAILY [facility] Last Admin: 07/26/18 08:46 Dose: 75 mg Fentanyl (Duragesic) 1 patch TD Q48H [facility]; Protocol Last Admin: 07/25/18 15:55 Dose: 1 patch Sodium Chloride (Sodium Chloride 0.9%) 1,000 mls @ 40 mls/hr IV .Q24H [facility] Last Admin: 07/22/18 21:21 Dose: Not Given Ceftriaxone Sodium 2 gm/ (Sodium Chloride) 100 mls @ 100 mls/hr IVPB DAILY [facility]; Protocol Last Admin: 07/26/18 10:00 Dose: 100 mls/hr Lactulose (Enulose) 20 gm PO DAILY PRN PRN Reason: Constipation Last Admin: 07/09/18 09:14 Dose: 20 gm Lorazepam (Ativan) 0.5 mg IVP Q8 PRN PRN Reason: Agitation Last Admin: 07/23/18 00:51 Dose: 0.5 mg Ondansetron HCl (Zofran Inj) 4 mg IVP Q6 PRN PRN Reason: Nausea/Vomiting Last Admin: 07/07/18 09:47 Dose: 4 mg Oxycodone HCl (Oxycodone Immediate Release Tab) 10 mg PO Q6 PRN PRN Reason: Pain, moderate (4-7) Last Admin: 07/26/18 08:45 Dose: 10 mg Pantoprazole Sodium (Protonix Inj) 40 mg IVP DAILY [facility] Last Admin: 07/26/18 08:45 Dose: 40 mg Potassium Chloride (Potassium Chloride Oral Soln) 60 meq PO DAILY [facility] Last Admin: 07/26/18 11:48 Dose: Not Given Senna/Docusate Sodium (Senokot S 50 Mg-8.6 Mg) 1 tab PO HS [facility] Last Admin: 07/25/18 22:07 Dose: 1 tab Sodium Bicarbonate (Sodium Bicarbonate Tab) 650 mg PO BID [facility] Last Admin: 07/26/18 18:00 Dose: 650 mg Tamsulosin HCl (Flomax) 0.4 mg PO HS [facility] Last Admin: 07/25/18 22:06 Dose: 0.4 mg - Labs Labs: 07/26/18 06:00 07/26/18 06:00 PT 14.8 Seconds (9.8-13.1) H 07/19/18 20:20 INR 1.3 07/19/18 20:20 APTT 29.2 Seconds (25.6-37.1) 07/19/18 20:20 - Constitutional Appears: Cachectic - Head Exam Head Exam: ATRAUMATIC - Eye Exam Eye Exam: Normal appearance - ENT Exam ENT Exam: Mucous Membranes Dry - Respiratory Exam Respiratory Exam: NORMAL BREATHING PATTERN - Cardiovascular Exam Cardiovascular Exam: +S1, +S2 - GI/Abdominal Exam GI & Abdominal Exam: Normal Bowel Sounds Assessment and Plan (1) DVT (deep venous thrombosis) Assessment & Plan: provoked from malignancy was on lovenox prophylaxis but held due to anemia Status: Acute (2) Anemia Assessment & Plan: chronic disease transfusion support PRN Status: Acute (3) Bladder cancer Assessment & Plan: stage IV has not received chemotherapy in several months s/p palliative radiotherapy deferred hospice had repeat code status discussion with son; wants to think about it Status: Chronic
[2018-07-26] MEDS: Docusate-Senna 50 mg-8.6 mg Tab PO SCH (22:23)
[2018-07-26] MEDS: Sodium Chloride 0.9% 1,000 ML IV SCH (22:29)
[2018-07-27] MEDS: oxyCODONE 10 mg Immediate Release Tab PO PRN ×3 (03:32→18:32)
[2018-07-27] MEDS: Potassium Chl 20mEq & D5W 1,000 ML IV SCH (05:24)
[2018-07-27 06:25] LABS: HEMOGLOBIN 9.6 g/dL (12.0-18.0); MEAN CELL VOLUME 90.2 fl (80.0-94.0); MEAN CORPUSCULAR HEMOGLOBIN 30.3 pg (27.0-31.0); MEAN CORPUSCULAR HGB CONC 33.6 g/dL (33.0-37.0); RBC 3.17 Mil/uL (4.40-5.90); WHITE BLOOD COUNT 8.3 K/uL (4.8-10.8)
[2018-07-27 06:37] LABS: ALB/GLOB RATIO 0.7 (1.0-2.1); ALBUMIN 2.3 g/dL (3.5-5.0); ALT/SGPT 22 U/L (21-72); AST/SGOT 33 U/L (17-59); BLOOD UREA NITROGEN 18 mg/dl (9-20); CALCIUM 7.8 mg/dL (8.4-10.2); GFR NON-AFRICAN AMERICAN > 60
[2018-07-27 09:19] LABS: HEMOGLOBIN 9.8 g/dL (12.0-18.0); MEAN CELL VOLUME 91.5 fl (80.0-94.0); MEAN CORPUSCULAR HEMOGLOBIN 30.3 pg (27.0-31.0); MEAN CORPUSCULAR HGB CONC 33.1 g/dL (33.0-37.0); RBC 3.22 Mil/uL (4.40-5.90); RED CELL DISTRIBUTION WIDTH 16.9 % (11.5-14.5); WHITE BLOOD COUNT 8.1 K/uL (4.8-10.8)
[2018-07-27 09:34] LABS: INR 1.4; PROTHROMBIN TIME 15.9 Seconds (9.8-13.1)
[2018-07-27 09:57] LABS: BLOOD UREA NITROGEN 18 mg/dl (9-20); CALCIUM 7.7 mg/dL (8.4-10.2); GFR NON-AFRICAN AMERICAN > 60
--- NOTE | 2018-07-27 10:04 | PN ---
DATE: 07/27/2018 SUBJECTIVE: The patient is seen and examined. Interim events noted. The patient remains in regular medical floor. The patient is awake, responsive, feels okay. Denies any new complaint of pain, but the patient does have lots of chronic pain which is controlled adequately with current pain medication. The patient also complains of generalized weakness. PHYSICAL EXAMINATION: GENERAL: The patient is in no acute distress. VITAL SIGNS: Stable. HEART: S1, S2, normal, regular. LUNGS: Good bilateral air exchange. ABDOMEN: Soft, nontender. EXTREMITIES: No edema. No calf swelling. No tenderness. No acute ischemia. CENTRAL NERVOUS SYSTEM: Essentially unchanged. DIAGNOSTIC DATA: Available diagnostic data reviewed. ASSESSMENT AND PLAN: Overall, the patient's general medical condition is stable. Plan as ordered. Vinay Henderson MD
[2018-07-27] MEDS: cefTRIAXone 2 GM in Sodium Chloride 0.9% 100 ML IVPB SCH (10:44)
[2018-07-27] MEDS: Potassium Chloride 20 mEq/15 ml LIQ UD PO SCH (10:44)
[2018-07-27] MEDS ORDERED: Iodixanol 320 MG/ML 100 ML BOTTLE IV ONE (11:59)
[2018-07-27] MEDS ORDERED: Lidocaine 1% Inj (20ml) ONE (12:09)
--- NOTE | 2018-07-27 12:19 | PCM.SURG1 ---
Surgeon's Initial Post Op Note - Surgeon's Notes Surgeon: Jus Scott MD Water Purification Chemist: NONE Type of Anesthesia: Local Pre-Operative Diagnosis: Right PCN obstruction, leaking Operative Findings: Bilateral PCN in place. Right PCN is obstructed. Post-Operative Diagnosis: Right PCN leaking Operation Performed: Right PCN change. Specimen/Specimens Removed: NONE Estimated Blood Loss: EBL {In ML}: 0 Blood Products Given: N/A Drains Used: Jose Alberto Cornelius Post-Op Condition: Fair Date of Surgery/Procedure: 07/27/18 Time of Surgery/Procedure: 12:15
--- NOTE | 2018-07-27 12:28 | VASCULAR ---
PROCEDURE: < Date of procedure: 07/27/2018 Procedure: 1. Right percutaneous nephrostogram, CPT 41529 2. Right percutaneous nephrostomy tube placement, CPT 90454 Medications: 2% Lidocaine 3 CC Contrast: 10 ml Visipaque Fluoro time: 29. Seconds, Dose: 3.69 MGy HISTORY: Ureteral obstruction, hydronephrosis, renal failure TECHNIQUE: Following informed consent and procedure time-out, the patient was placed prone on the interventional table and the skin was marked. The lower back was prepped and draped in the usual sterile fashion. Contrast injected through right nephrostomy tube showed moderate right hydronephrosis. The existing nephrostomy tube was removed over a guidewire and exchanged for a new 8 Macanese right nephrostomy tube formed within renal pelvis. The nephrostomy tube were secured to patient's skin with Prolene sutures. Nephrostomy tube was secured to drainage bags. . IMPRESSION: Nephrostogram showed moderate right hydronephrosis. Exchange of Right percutaneous nephrostomy tubes for new 8 Macanese right percutaneous nephrostomy tube.
[2018-07-27] MEDS: Docusate-Senna 50 mg-8.6 mg Tab PO SCH (22:44)
--- NOTE | 2018-07-27 22:48 | CP.PCM.PN ---
Subjective - Date & Time of Evaluation Date of Evaluation: 07/27/18 Time of Evaluation: 19:00 - Subjective Subjective: No complaints. Objective - Vital Signs/Intake and Output Vital Signs (last 24 hours): Temp Pulse Resp BP Pulse Ox 98.6 F 92 H 18 115/67 97 07/27/18 16:27 07/27/18 16:27 07/27/18 16:27 07/27/18 16:27 07/27/18 16:27 Intake and Output: 07/27/18 07/28/18 18:59 06:59 Output Total 775 Balance -775 - Medications Medications: Current Medications Acetaminophen (Tylenol 325mg Tab) 325 mg PO Q6 PRN PRN Reason: Pain, Mild (1-3) Last Admin: 07/27/18 22:43 Dose: 325 mg Acetaminophen (Tylenol 325mg Tab) 650 mg PO Q6 PRN PRN Reason: Fever >100.4 F Bupropion HCl (Wellbutrin) 75 mg PO DAILY [facility] Last Admin: 07/27/18 10:45 Dose: 75 mg Fentanyl (Duragesic) 1 patch TD Q48H [facility]; Protocol Last Admin: 07/27/18 11:01 Dose: 1 patch Sodium Chloride (Sodium Chloride 0.9%) 1,000 mls @ 40 mls/hr IV .Q24H [facility] Last Admin: 07/26/18 22:29 Dose: 40 mls/hr Ceftriaxone Sodium 2 gm/ (Sodium Chloride) 100 mls @ 100 mls/hr IVPB DAILY [facility]; Protocol Last Admin: 07/27/18 10:44 Dose: 100 mls/hr Lactulose (Enulose) 20 gm PO DAILY PRN PRN Reason: Constipation Last Admin: 07/09/18 09:14 Dose: 20 gm Lorazepam (Ativan) 0.5 mg IVP Q8 PRN PRN Reason: Agitation Last Admin: 07/23/18 00:51 Dose: 0.5 mg Ondansetron HCl (Zofran Inj) 4 mg IVP Q6 PRN PRN Reason: Nausea/Vomiting Last Admin: 07/07/18 09:47 Dose: 4 mg Oxycodone HCl (Oxycodone Immediate Release Tab) 10 mg PO Q6 PRN PRN Reason: Pain, moderate (4-7) Last Admin: 07/27/18 18:32 Dose: 10 mg Pantoprazole Sodium (Protonix Inj) 40 mg IVP DAILY [facility] Last Admin: 07/27/18 10:43 Dose: 40 mg Potassium Chloride (Potassium Chloride Oral Soln) 60 meq PO DAILY [facility] Last Admin: 07/27/18 10:44 Dose: Not Given Senna/Docusate Sodium (Senokot S 50 Mg-8.6 Mg) 1 tab PO HS [facility] Last Admin: 07/27/18 22:44 Dose: 1 tab Sodium Bicarbonate (Sodium Bicarbonate Tab) 650 mg PO BID [facility] Last Admin: 07/27/18 17:38 Dose: 650 mg Tamsulosin HCl (Flomax) 0.4 mg PO HS [facility] Last Admin: 07/27/18 22:43 Dose: 0.4 mg - Labs Labs: 07/27/18 08:45 07/27/18 08:45 PT 15.9 Seconds (9.8-13.1) H 07/27/18 08:45 INR 1.4 07/27/18 08:45 APTT 29.2 Seconds (25.6-37.1) 07/19/18 20:20 - Head Exam Head Exam: ATRAUMATIC - Eye Exam Eye Exam: Normal appearance - ENT Exam ENT Exam: Mucous Membranes Dry - Respiratory Exam Respiratory Exam: NORMAL BREATHING PATTERN - Cardiovascular Exam Cardiovascular Exam: +S1, +S2 - GI/Abdominal Exam GI & Abdominal Exam: Normal Bowel Sounds Assessment and Plan (1) DVT (deep venous thrombosis) Assessment & Plan: provoked from malignancy was on lovenox prophylaxis but held due to anemia Status: Acute (2) Anemia Assessment & Plan: chronic disease transfusion support PRN Status: Acute (3) Bladder cancer Assessment & Plan: stage IV has not received chemotherapy in several months s/p palliative radiotherapy deferred hospice had repeat code status discussion with son; wants to think about it Status: Chronic
[2018-07-28] MEDS: oxyCODONE 10 mg Immediate Release Tab PO PRN ×2 (06:11→15:59)
--- NOTE | 2018-07-28 09:06 | PN ---
DATE: 07/28/2018 SUBJECTIVE: The patient seen and examined. Interim events noted. Consults noted and appreciated. The patient remains in regular medical floor. Sleeping, arousable, feels okay. Complains of multiple pain, but it is controlled with pain medication. No chest pain. No shortness of breath. No new pain. PHYSICAL EXAMINATION: GENERAL: The patient is in no acute distress. VITAL SIGNS: Stable. HEART: S1 and S2, normal and regular. LUNGS: Good bilateral air exchange. ABDOMEN: Soft, nontender. EXTREMITIES: No edema. No calf swelling. No tenderness. No acute ischemia. CENTRAL NERVOUS SYSTEM: Exam is essentially unchanged. The patient has a right nephrostomy tube changed tubes are at present functioning. DIAGNOSTIC DATA: Available diagnostic data reviewed. ASSESSMENT AND PLAN: Overall, the patient's general medical condition is stable, but long-term prognosis remains poor due to underlying stage IV cancer. Plan as ordered. Vinay Henderson MD
[2018-07-28] MEDS: Potassium Chloride 20 mEq/15 ml LIQ UD PO SCH (09:16)
[2018-07-28] MEDS: cefTRIAXone 2 GM in Sodium Chloride 0.9% 100 ML IVPB SCH (09:17)
[2018-07-28] MEDS: Sodium Chloride 0.9% 1,000 ML IV SCH ×2 (09:37→16:00)
--- NOTE | 2018-07-28 13:27 | CP.PCM.PN ---
Subjective - Date & Time of Evaluation Date of Evaluation: 07/28/18 Time of Evaluation: 12:00 - Subjective Subjective: Has ear ache Objective - Vital Signs/Intake and Output Vital Signs (last 24 hours): Temp Pulse Resp BP Pulse Ox 97.5 F L 90 19 113/65 97 07/28/18 08:08 07/28/18 08:08 07/28/18 08:08 07/28/18 08:08 07/28/18 08:08 Intake and Output: 07/28/18 07/28/18 06:59 18:59 Output Total 750 175 Balance -750 -175 - Medications Medications: Current Medications Acetaminophen (Tylenol 325mg Tab) 325 mg PO Q6 PRN PRN Reason: Pain, Mild (1-3) Last Admin: 07/27/18 22:43 Dose: 325 mg Acetaminophen (Tylenol 325mg Tab) 650 mg PO Q6 PRN PRN Reason: Fever >100.4 F Bupropion HCl (Wellbutrin) 75 mg PO DAILY [facility] Last Admin: 07/28/18 09:15 Dose: 75 mg Fentanyl (Duragesic) 1 patch TD Q48H [facility]; Protocol Last Admin: 07/27/18 11:01 Dose: 1 patch Sodium Chloride (Sodium Chloride 0.9%) 1,000 mls @ 40 mls/hr IV .Q24H [facility] Last Admin: 07/28/18 09:37 Dose: 40 mls/hr Ceftriaxone Sodium 2 gm/ (Sodium Chloride) 100 mls @ 100 mls/hr IVPB DAILY [facility]; Protocol Last Admin: 07/28/18 09:17 Dose: 100 mls/hr Lactulose (Enulose) 20 gm PO DAILY PRN PRN Reason: Constipation Last Admin: 07/09/18 09:14 Dose: 20 gm Lorazepam (Ativan) 0.5 mg IVP Q8 PRN PRN Reason: Agitation Last Admin: 07/23/18 00:51 Dose: 0.5 mg Ondansetron HCl (Zofran Inj) 4 mg IVP Q6 PRN PRN Reason: Nausea/Vomiting Last Admin: 07/07/18 09:47 Dose: 4 mg Oxycodone HCl (Oxycodone Immediate Release Tab) 10 mg PO Q6 PRN PRN Reason: Pain, moderate (4-7) Last Admin: 07/28/18 06:11 Dose: 10 mg Pantoprazole Sodium (Protonix Inj) 40 mg IVP DAILY [facility] Last Admin: 07/28/18 09:15 Dose: 40 mg Potassium Chloride (Potassium Chloride Oral Soln) 60 meq PO DAILY [facility] Last Admin: 07/28/18 09:16 Dose: 60 meq Senna/Docusate Sodium (Senokot S 50 Mg-8.6 Mg) 1 tab PO HS [facility] Last Admin: 07/27/18 22:44 Dose: 1 tab Sodium Bicarbonate (Sodium Bicarbonate Tab) 650 mg PO BID [facility] Last Admin: 07/28/18 09:15 Dose: 650 mg Tamsulosin HCl (Flomax) 0.4 mg PO HS [facility] Last Admin: 07/27/18 22:43 Dose: 0.4 mg - Labs Labs: 07/27/18 08:45 07/27/18 08:45 PT 15.9 Seconds (9.8-13.1) H 07/27/18 08:45 INR 1.4 07/27/18 08:45 APTT 29.2 Seconds (25.6-37.1) 07/19/18 20:20 - Head Exam Head Exam: ATRAUMATIC - Eye Exam Eye Exam: Normal appearance - ENT Exam ENT Exam: Mucous Membranes Dry - Respiratory Exam Respiratory Exam: NORMAL BREATHING PATTERN - Cardiovascular Exam Cardiovascular Exam: +S1, +S2 - GI/Abdominal Exam GI & Abdominal Exam: Normal Bowel Sounds Assessment and Plan (1) DVT (deep venous thrombosis) Assessment & Plan: provoked from malignancy was on lovenox prophylaxis but held due to anemia Status: Acute (2) Anemia Assessment & Plan: chronic disease transfusion support PRN Status: Acute (3) Bladder cancer Assessment & Plan: stage IV has not received chemotherapy in several months s/p palliative radiotherapy deferred hospice had repeat code status discussion with son; wants to think about it Status: Chronic
[2018-07-28 16:09] VITALS: BP 119/63; PULSE 71; RESP 18; TEMP 98.3; O2SAT 100
--- NOTE | 2018-08-01 07:36 | CP.PCM.PN ---
Subjective - Date & Time of Evaluation Date of Evaluation: 07/21/18 Time of Evaluation: 11:00 - Subjective Subjective: patient is noted to have decrease in Hgb to 8.2 and elevated AL{ from metastatic ca Has no fever Has poor appetite Objective - Vital Signs/Intake and Output Vital Signs (last 24 hours): Temp Pulse Resp BP Pulse Ox 98.3 F 71 18 119/63 100 07/28/18 16:09 07/28/18 16:09 07/28/18 16:09 07/28/18 16:09 07/28/18 16:09 - Labs Labs: 07/27/18 08:45 07/27/18 08:45 PT 15.9 Seconds (9.8-13.1) H 07/27/18 08:45 INR 1.4 07/27/18 08:45 APTT 29.2 Seconds (25.6-37.1) 07/19/18 20:20 - Head Exam Head Exam: NORMAL INSPECTION - ENT Exam ENT Exam: Mucous Membranes Moist - Respiratory Exam Respiratory Exam: Decreased Breath Sounds - Cardiovascular Exam Cardiovascular Exam: Irregular Rhythm - GI/Abdominal Exam GI & Abdominal Exam: Normal Bowel Sounds Assessment and Plan (1) Malignant neoplasm metastatic from bladder Status: Acute (2) Anemia Status: Acute (3) Complicated UTI (urinary tract infection) Status: Acute - Assessment and Plan (Free Text) Plan: cont meds cont monitor cbc cont hydration follow up with consults
== END 2018-07-28 18:35 | DRG 698 ==
LOC: H.ER 21:44 → H.ERHOLD 21:51 → H.MEDSURG1 23:51
PROVIDERS: ADMIT Internal Medicine; ATTEND Internal Medicine
PROC: 30233N1 Transfusion of Nonautologous Red Blood Cells into Peripheral Vein, Percutaneous Approach (ICD-10-PCS; 2018-07-12)
PROC: 0T25X0Z Change Drainage Device in Kidney, External Approach (ICD-10-PCS; principal; 2018-07-20 10:30)
PROC: 0T25X0Z Change Drainage Device in Kidney, External Approach (ICD-10-PCS; 2018-07-27)
DX: N99.522 Malfunction of incontinent external stoma of urinary tract (principal); A41.9 Sepsis, unspecified organism; N17.9 Acute kidney failure, unspecified; C79.51 Secondary malignant neoplasm of bone; C77.9 Secondary and unspecified malignant neoplasm of lymph node, unspecified; I82.411 Acute embolism and thrombosis of right femoral vein; N13.8 Other obstructive and reflux uropathy; N39.0 Urinary tract infection, site not specified; K62.5 Hemorrhage of anus and rectum; R64 Cachexia; C67.9 Malignant neoplasm of bladder, unspecified; T83.032A Leakage of nephrostomy catheter, initial encounter; I12.9 Hypertensive chronic kidney disease with stage 1 through stage 4 chronic kidney disease, or unspecified chronic kidney disease; N18.3 Chronic kidney disease, stage 3 (moderate); E11.22 Type 2 diabetes mellitus with diabetic chronic kidney disease; D63.0 Anemia in neoplastic disease; E83.42 Hypomagnesemia; E87.6 Hypokalemia; G89.29 Other chronic pain; R53.81 Other malaise; K59.00 Constipation, unspecified; K21.9 Gastro-esophageal reflux disease without esophagitis; N40.0 Benign prostatic hyperplasia without lower urinary tract symptoms; D63.1 Anemia in chronic kidney disease; S00.83XA Contusion of other part of head, initial encounter; W18.30XA Fall on same level, unspecified, initial encounter; Y93.01 Activity, walking, marching and hiking; Y92.238 Other place in hospital as the place of occurrence of the external cause; Z75.1 Person awaiting admission to adequate facility elsewhere; Z68.25 Body mass index [BMI] 25.0-25.9, adult; Z87.891 Personal history of nicotine dependence; Z59.0 Homelessness; Z88.6 Allergy status to analgesic agent